=== PATIENT | female | born 1960 | race Caucasian/White ===

== ENCOUNTER 2024-04-11 17:13 | Emergency (ER) | payer MEDICARE, SELFPAY ==
[2024-04-11 17:17] VITALS: BP 163/96; PULSE 104; TEMP 36.4; O2SAT 98; BMI 21.9
--- NOTE | 2024-04-11 17:22 | CT_ITS ---
The [address] [address] Patient Name: LAURA ADAMSON MRN: [id number] date: 1960 Sex: F Assigned Patient Location: ER Current Patient Location: ER Accession/Order Number: [id number] Exam Date: 04/11/2024 17:48 Report Date: 04/11/2024 18:26 At the request of: JULIAN OLMOS Procedure: CT cervical spine wo con EXAM: CT cervical spine wo con CLINICAL INDICATION: Fell, hit head COMPARISON: None. TECHNIQUE: CT scanning of the cervical spine was performed in the axial plane. Coronal and sagittal reconstructed images were performed and viewed. FINDINGS: No acute fracture. The spine is in anatomic alignment. Mild to moderate multilevel degenerative disc and facet disease. The prevertebral soft tissues are unremarkable. Additional soft tissues of the neck and upper thorax are unremarkable. CT/CT cervical spine wo con IMPRESSION: No acute fracture. Electronically authenticated by: ORLY MOSQUEDA Date: 04/11/2024 18:26
--- NOTE | 2024-04-11 17:22 | CT_ITS ---
The [address] [address] Patient Name: LAURA ADAMSON MRN: [id number] date: 1960 Sex: F Assigned Patient Location: ED.MAIN Current Patient Location: Accession/Order Number: [id number] Exam Date: 04/11/2024 17:48 Report Date: 04/11/2024 18:23 At the request of: JULIAN OLMOS Procedure: CT head/brain wo con EXAM: CT head/brain wo con HISTORY: Fell, hit head COMPARISON: CT brain 09/05/2021 TECHNIQUE: Axial CT scans through the head were obtained without IV contrast administration. Dose reduction techniques were achieved by using: automated exposure control and/or adjustment of mA and /or kV according to patient size and/or use of iterative reconstruction technique. FINDINGS: There is no evidence of acute intracranial hemorrhage or abnormal extra-axial fluid collection. No mass effect or midline shift is seen. There is no evidence of large acute territorial infarction. There is no hydrocephalus. There is age appropriate mild global cortical atrophy. Mild decreased attenuation of the supratentorial white matter, likely represents chronic microvascular ischemia. To the limit of CT, the posterior fossa appears unremarkable. There are atherosclerotic calcifications of anterior and posterior circulations. No definite acute fracture is identified. There is mild soft tissue swelling in the left inferior frontal and periorbital region. The visualized orbits show no abnormality. The visualized paranasal sinuses show no air-fluid level. Mastoid air cells are clear. CT/CT head/brain wo con IMPRESSION: No CT evidence of acute intracranial abnormality. No acute fracture. Mild left frontal and periorbital soft tissue swelling. Mild chronic microvascular ischemia and involutional changes. Electronically authenticated by: XENIA UNLU Date: 04/11/2024 18:23
[2024-04-11] MEDS: LIDOCAINE HCL 1% 100 MG/10 ML MDV INJ (17:29)
--- NOTE | 2024-04-11 17:42 | ED_ITS ---
HPI HPI - General Adult General Chief complaint: Fall Stated complaint: fall Time Seen by Provider: 04/11/24 17:18 Source: patient Mode of arrival: walk-in History of Present Illness HPI narrative: 63-year-old female presents to the emergency department for an injury to her face, she fell. She fell when her walker hit a walnut and it rolled and she fell hitting the left side of her face and her left knee. No LOC or vomiting and she does not complain of neck pain. This happened just before coming into the emergency department. No other injury was sustained. No chest pain or abdominal pain or arm pain. Related Data Allergies Allergy/AdvReac Type Severity Reaction Status Date / Time No Known Drug Allergies Allergy Verified 04/11/24 17:16 Opioid HPI Opioid Management Most Recent Opioid Data: No Data to Display Review of Systems ROS Narrative A ten point review of systems is negative except as noted above. PFSH PFSH Social History Little interest or pleasure in doing things: not at all Feeling down, depressed, or hopeless: not at all Exam Narrative Exam Narrative: Nurses note and vital signs reviewed and patient is not hypoxic. General: The patient appears well and in no apparent distress. Patient is resting comfortably on cart. Skin: Warm, dry, no pallor noted. There is no rash noted. Head: Normocephalic, there is an irregular 1-1/2 cm laceration above the left eye with a small hematoma and no active bleeding. She has abrasion to the left Maller area as well. Eye: Normal conjunctiva, no drainage Ears, Nose, Mouth, and Throat: oral mucosa is moist. Nares patent. Cardiovascular: Regular Rate and Rhythm Respiratory: Patient is in no distress, no accessory muscle use, lungs are clear to auscultation, no wheezing, rales or rhonchi Back: non-tender including C-spine GI: Soft and nontender Musculoskeletal: Superficial abrasions present on the anterior left knee. Both hips are nontender and both knees have full range of motion Neurological: A&O, normal speech Psychiatric: Cooperative Constitutional Vital Signs, click to edit/add: Last Vital Signs Temp 97.6 F 04/11/24 17:17 Pulse 104 H 04/11/24 17:17 Resp 20 04/11/24 17:17 BP 163/96 H 04/11/24 17:17 Pulse Ox 98 04/11/24 17:17 O2 Del Method Room Air 04/11/24 17:17 Course Vital Signs Vital signs: Vital Signs Temperature 97.6 F 04/11/24 17:17 Pulse Rate 104 H 04/11/24 17:17 Respiratory Rate 20 04/11/24 17:17 Blood Pressure 163/96 H 04/11/24 17:17 Pulse Oximetry 98 04/11/24 17:17 Oxygen Delivery Method Room Air 04/11/24 17:17 Temperature 97.6 F 04/11/24 17:17 Pulse Rate 104 H 04/11/24 17:17 Respiratory Rate 20 04/11/24 17:17 Blood Pressure 163/96 H 04/11/24 17:17 Pulse Oximetry 98 04/11/24 17:17 Oxygen Delivery Method Room Air 04/11/24 17:17 Medical Decision Making MDM Narrative Medical decision making narrative: CT brain and CT C-spine are negative. After the sutures were placed Gelfoam dressing was applied. Sutures are to be removed in a week. Treatment diagnosis and follow-up were discussed thoroughly. Differential Diagnosis Differential Diagnosis: Fall, laceration, subdural hematoma, epidural hematoma, subarachnoid hemorr Imaging Data CT scan - head: Radiologist's impression: ITS Impressions Cervical Spine CT 04/11/24 17:22 IMPRESSION: No acute fracture. Electronically authenticated by: ORLY MOSQUEDA Date: 04/11/2024 18:[address] 04/11/24 17:22 IMPRESSION: No CT evidence of acute intracranial abnormality. No acute fracture. Mild left frontal and periorbital soft tissue swelling. Mild chronic microvascular ischemia and involutional changes. Electronically authenticated by: XENIA NOEL Date: 04/11/2024 18:23 Discharge Plan Discharge Chief Complaint: Fall Clinical Impression: Facial laceration, Fall Patient Disposition: Home, Self-Care Time of Disposition Decision: 18:41 Condition: Good Mode of Transportation: Private Vehicle Print Language: Lithuanian Instructions: Laceration (ED), Fall Prevention for Older Adults (ED) Additional Instructions: 3 sutures to be removed in a week. Leave current dressing on for 48 hours. Referrals: Casandra Jauregui MD [Primary Care Provider] - 1 week Procedures ED Procedure Instructions Procedures Procedures: The following procedure was performed by mn. Local infiltration was carried out with 1% lidocaine without epinephrine resulting in complete skin anesthesia. The area was prepped with Betadine x 3 and draped sterilely. It was explored for foreign bodies and none were found and then closed with four 6-0 Ethilon sutures resulting in good skin reapproximation and no complications. Hemostasis achieved. She tolerated the procedure well.
--- NOTE | 2024-04-11 18:41 | PC.NURSE ---
gel foam dressing placed on laceration due to bleeding
== END 2024-04-11 19:05 | disposition home or self-care (01) ==
PROVIDERS: Emergency Provider Emergency Medicine; PCP Family Medicine
DX: S01.81XA Laceration without foreign body of other part of head, initial encounter (principal); S80.212A Abrasion, left knee, initial encounter; W18.39XA Other fall on same level, initial encounter
CPT/HCPCS: 12011; 70450; 72125; 99284

== ENCOUNTER 2024-06-05 10:45 | Outpatient (OUT) | payer MEDICARE, SELFPAY ==
--- NOTE | 2024-06-05 10:58 | XR_ITS ---
The [address] [address] Patient Name: LAURA ADAMSON MRN: [id number] date: 1960 Sex: F Assigned Patient Location: [facility] Current Patient Location: [facility] Accession/Order Number: [id number] Exam Date: 06/05/2024 11:07 Report Date: 06/05/2024 12:51 At the request of: XIMENA ASTUDILLO Procedure: XR chest 2V EXAMINATION: XR chest 2V HISTORY: Chronic Obsrtructive Pulmonary Disease COMPARISON: 08/19/2022 TECHNIQUE: PA and lateral FINDINGS: LUNGS: No significant pulmonary parenchymal abnormalities. VASCULATURE: No increased pulmonary vasculature. PLEURA: No pneumothorax, effusion, or pleural thickening. CARDIAC: No cardiomegaly or cardiac silhouette abnormality. MEDIASTINUM: No visible mass or adenopathy. BONES: No fracture or visible bone lesion. Moderate degenerative changes. Anterior wedge compression fracture of multiple levels OTHER: Negative. XR/XR chest 2V IMPRESSION: No acute cardiopulmonary process Electronically authenticated by: PAWAN GEORGE Date: 06/05/2024 12:51
== END 2024-06-05 10:46 | disposition home or self-care (01) ==
LOC: RAD 10:47
PROVIDERS: PCP Family Medicine; Visit Provider Family Medicine
DX: J44.9 Chronic obstructive pulmonary disease, unspecified (principal)
CPT/HCPCS: 71046

== ENCOUNTER 2024-06-24 21:40 | Observation (INO) | payer MEDICARE, SELFPAY ==
[2024-06-24] VITALS (13 sets, daily range): BP systolic 106–137; BP diastolic 58–69; PULSE 75–82; TEMP 36.9; O2SAT 72–100; BMI 23.5
--- OUTSIDE RECORDS SUMMARY | 2024-06-24 21:46 | XMS_ITS | CCD ---
Author Organization [facility] Care Team Providers Care Sharepoint Application Architect Name Role Phone WANDA WHEELER Unavailable Unavailable WANDA WHEELER Yoanna Unavailable Unavailable JULIOCESARADDY CAPPS Unavailable Unavailable JULIOCESAR, ADDY Unavailable Unavailable CA Unavailable Unavailable UNKNOWN, PROVIDER Unavailable Unavailable Ximena Astudillo Primary Care Unavailable Judy Baltazar Admitting Unavailable Judy Baltazar Attending Unavailable Judy Baltazar Primary Care Provider Ximena Astudillo MD Unavailable XIMENA ASTUDILLO Primary Care Physician DR XIMENA ASTUDILLO Primary Care Unavailable PAMELA, DR JACQUELYN Gannon Admitting Unavailabl e PAMELA, DR JACQUELYN Gannon Attending Unavailabl e PAMELA, DR JACQUELYN Gannon Consulting Unavailabl e ARLIN ., KESHAWN PITTMAN Consulting UnavailPAWAN James Consulting Unavailable BAUDILIO, DR XIMENA Gunderson Primary Care Unavailable DIAB ., PARAMJIT Admitting Unavailable DIAB ., PARAMJIT Attending Unavailable ZIEBER, DR BEBETO Cadena Consulting Unavailable DIAB ., PARAMJIT Consulting Unavailable BAUDILIO, DR XIMENA Gunderson Primary Care Unavailable SARAH, DR MONET Attending Unavailable SALINAS, DR PAWAN Vazquez Consulting Unavailable SARAH, DR MONET Admitting Unavailable SARAH, DR MONET Consulting Unavailable ASTUDILLO, DR XIMENA Gunderson Attending Unavailable ASTUDILLO, DR XIMENA Gunderson Consulting Unavailable BAUDILIO, DR XIMENA Gunderson Primary Care Unavailable ASTUDILLO, DR XIMENA Gunderson Admitting Unavailable ASTUDILLO, DR XIMENA Gunderson Attending Unavailable BAUDILIO, DR XIMENA Gunderson Consulting Unavailable BAUDILIO, DR XIMENA Gunderson Primary Care Unavailable BAUDILIO, DR XIMENA Gunderson Admitting Unavailable SHANITASLOANE Consulting Unavailable BAUDILIO, DR XIMENA Gunderson Admitting Unavailable ASTUDILLO, DR XIMENA Gunderson Attending Unavailable ASTUDILLO, DR XIMENA Gunderson Consulting Unavailable BAUDILIO, DR XIMENA Gunderson Primary Care Unavailable MCCULLOUGH ., DR LENY Gunderson Admitting Unavailable MCCULLOUGH ., DR LENY Gunderson Attending Unavailable MARIXA .DR DAILEY Consulting Unavailable ASTUDILLO, DR XIMENA Gunderson Primary Care Unavailable MCCULLOUGH ., DR LENY Gunderson Consulting Unavailable WEST, DR PAWAN Vazquez Consulting Unavailable ZIEBER, DR BEBETO Cadena Consulting Unavailable NADERER, DR ADMARI Beard Consulting Unavailable PAY ., DR DOWNING Consulting Unavailable SAMSA ., MERLINE Consulting Unavailable AHMED, HOLLI Consulting Unavailable DERROW, GAMAL Consulting Unavailable TATUM, BOB Consulting Unavailable ARMINDA, RITIKA Consulting Unavailable Ximena Astudillo Unavailable Rigo Anderson Attending Unavailable Regi Cordova Admitting Unavailab Rigo Wilson Attending Unavailable BENTLEY Swift Admitting Unacariei BENTLEY Tinoco Attending Unavai Regi Welch Attending Unavailab Regi Beebe Admitting Unavailab Regi Beebe Attending Unavailab Regi Beebe Admitting Unavailab grover Baltazar MD, Judy Primary Care Provider Ximena Astudillo MD Unavailable CHANA LEMONS Referring Unavailable CHANA LEMONS Attending Unavailable CHANA LEMONS Referring Unavailable CHANA LEMONS Referring Unavailable BASSEM CYR Referring Unavailable BASSEM CYR Attending Unavailable BASSEM CYR Attending Unavailable BASSEM CYR Referring Unavailable Allergies Allergy Classification Reported Allergen(s) Allergy Type Date of Onset Reaction(s) Facility (1 source) patient allergy list reviewed by nurse or physicia Propensity to adverse reactions 03-06 8 Comment:Done [facility] Other (1 source) Allergies Reconciled Propensity to adverse reactions Unknown [facility] Other Medications Current Medications Medication Drug Class(es) Dates Sig (Normalized) Sig (Original) 30 ACTUAT fluticasone furoate 0.2 MG/ACTUAT / umeclidinium 0.0625 MG/ACTUAT / vilanterol 0.025 MG/ACTUAT Dry Powder Inhaler [Trelegy] (1 source) Start: 10-16-2022 take 1 puff(s) by inhalation once daily Trelegy Ellipta 200-62.5-25 MCG/ACT 1 puff Inhalation Once a day for 30 days Oct, Active acetaminophen 325 mg oral tablet (1 source) Start: 10-12-2023 take 2 tablets by mouth every six hours acetaminophen 325 mg Tab 650 mg = 2 tab(s), Oral, q6hr, Refills(s) 0 Start Date: 10/12/23 Status: Ordered [id number] 200 actuat albuterol 0.09 mg/actuat metered dose inhaler (20 sources) beta2-Adrenergic Agonist Start: 08-08-2023 End: 06-05-2024 take 2 puff(s) by inhalation every six hours as needed for wheezing Albuterol Sulfate (Ventolin Hfa) 90 mcg/actuation HFA aerosol inhaler Active 0 .ROUTE .COMPLEX June 05, 2024 10:26am INHALE 2 PUFFS EVERY 6 HOURS NEEDED FOR SHORTNESS OF BREATH OR WHEEZING 25 Start: 08-08-2023 End: 08-08-2023 take 1 puff(s) by inhalation every six hours as needed Albuterol Sulfate 90 mcg/actuation HFA aerosol inhaler Discontinued 2 PUFF INHALATION Every 6 hours as needed August 07, 2023 11:00pm August 08, 2023 11:48am Start: 05-23-2018 VENTOLIN HFA 9 0 mcg/actuation inhaler take 2 puff(s) by in halation every six hours as needed for wheezing Ventolin HFA 108 (90 Base) MCG/ACT INHALE 2 PUFFS EVERY 6 HOURS NEEDED FOR SHORTNESS OF BREATH OR WHEEZING for 25 Active apremilast 30 mg oral tablet (9 sources) Start: 10-08-2023 take 30 mg by mouth once daily apremilast 30 mg, Oral, Daily, Refills(s) 0 Start Date: 10/08/23 Status: Ordered Start: 09-10-2023 End: 01-29-2024 take 1 tablet by mouth twice daily Apremilast (Otezla) 30 mg tablet Discontinued 30 MG PO Twice daily September 09, 2023 11:00pm January 29, 2024 11:07am Otezla Active ascorbic acid 500 mg oral tablet (1 source) Vitamin C Start: 10-12-2023 ascorbic acid 500 mg Tab 500 mg = 1 tab(s), Oral, BIDWM, Refills(s) 0 Start Date: 10/12/23 Status: Ordered aspirin 81 mg delayed release oral tablet (20 sources) Platelet Aggregation Inhibitor, Nonsteroidal Anti-inflammatory Drug Start: 03-04-2024 End: 05-02-2024 take 1 tablet by mouth once daily Aspirin 81 mg tablet,delayed release (DR/EC) Active 0 .ROUTE .COMPLEX May 02, 2024 8:34am TAKE ONE TABLET BY MOUTH ONCE DAILY 30 Start: 11-01-2021 End: 03-04-2024 take 1 tablet by mouth once daily Aspirin 81 mg tablet,delayed release (DR/EC) Discontinued 1 TAB PO Daily September 09, 2023 11:00pm March 04, 2024 9:04pm FreeTextSig: TAKE ONE TABLET BY MOUTH ONCE DAILY; Note: Source Status: Start; Refills: 12; Qty: 30 Each; Provider: Baudilio Guajardo ( ) Start: 07-18-2018 aspirin 81 mg chewable tablet take 1 tablet by mauro once daily Aspirin 81 81 MG 1 tablet Orally Once a day for 30 day(s) Active atorvastatin 80 mg oral tablet (16 sources) HMG-CoA Reductase Inhibitor Start: 07-18-2018 atorvastatin (LIPITOR) 80 mg tablet bisacodyl 10 mg rectal suppository (2 sources) Stimulant Laxative Start: 10-12-2023 take 10 mg rectal route once daily as needed for constipation bisacodyl 10 mg Supp 10 mg = 1 supp, Rectal, Daily, PRN Constipation, Refills(s) 0 Start Date: 10/12/23 Status: Ordered Start: 10-12-2023 take 2 tablets by mo [facility] once as needed for constipation bisacodyl 5 mg Oral EC Tab 10 mg = 2 tab(s), Oral, Once, PRN Constipation, Refills(s) 0 Start Date: 10/12/23 Status: Ordered 120 actuat budesonide 0.16 mg/actuat / formoterol fumarate 0.0045 mg/actuat metered dose inhaler (16 sources) Corticosteroid, beta2-Adrenergic Agonist Start: 08-08-2023 End: 05-05-2024 take 2 puff(s) by inhalation twice daily Budesonide-Formoterol (Symbicort) 160-4.5 mcg/actuation HFA aerosol inhaler Active 0 .ROUTE .COMPLEX 10.2 May 05, 2024 8:22am INHALE 2 PUFFS TWICE A DAY FOR 30 DAYS Start: 08-08-2023 End: 08-08-2023 take 1 puff(s) by inhalation twice daily Budesonide-Formoterol (Symbicort) 160-4.5 mcg/actuation HFA aerosol inhaler Discontinued 2 PUFF INHALATION Twice daily August 07, 2023 11:00pm August 08, 2023 11:48am Start: 10-18-2022 take 2 puff(s) by in halation twice daily Symbicort 160-4.5 MCG/ACT 2 puffs Inhalation Twice a day for 30 days Oct, Active 12 hr buPROPion hydrochloride 150 mg extended release oral tablet (11 sources) Aminoketone Start: 07-18-2018 buPROPion SR (ZYBAN SR; WELLBUTRIN SR) 150 mg 12 hr tablet cefdinir 300 mg oral capsule (1 source) Cephalosporin Antibacterial Start: 10-12-2023 End: 10-17-2023 take 1 capsule by mouth every twelve hours cefdinir 300 mg Cap 300 mg = 1 cap(s), Oral, q12hr, X 5 day(s), # 10 cap(s), Refills(s) 0 Start Date: 10/12/23 Stop Date: 10/17/23 Status: Ordered clopidogrel 75 mg oral tablet (20 sources) P2Y12 Platelet Inhibitor Start: 09-06-2023 End: 05-05-2024 take 1 tablet by mouth once daily Clopidogrel 75 mg tablet Active 0 .ROUTE .COMPLEX May 05, 2024 8:22am TAKE ONE TABLET BY MOUTH ONCE DAILY Start: 07-18-2018 End: 09-06-2023 take 1 tablet by mouth once daily Clopidogrel 75 mg tablet Discontinued 75 MG PO Daily September 04, 2023 11:00pm September 06, 2023 11:53am Enoxaparin (1 source) Low Molecular Weight Heparin Start: 10-12-2023 End: 11-11-2023 inject 30 mg by subcutaneous injection twice daily enoxaparin 30 mg = 0.3 mL, SubCutaneous, BID, X 30 day(s), Refills(s) 0 Start Date: 10/12/23 Stop Date: 11/11/23 Status: Ordered ferrous sulfate 325 mg oral tablet (1 source) Start: 10-12-2023 ferrous sulfate 325 mg Tab 325 mg = 1 tab(s), Oral, BIDWM, Refills(s) 0 Start Date: 10/12/23 Status: Ordered folic acid 1 mg oral tablet (1 source) Start: 10-12-2023 take 1 tablet by mouth once daily folic acid 1 mg Tab 1 mg = 1 tab(s), Oral, Daily, Refills(s) 0 Start Date: 10/12/23 Status: Ordered folic acid/multivit-min/lutei n (CENTRUM SILVER ORAL) (11 sources) folic acid/multivit-min /lutein (CENTRUM SILVER ORAL) Take by mouth. 0 Active Comment on above: Take by mouth. furosemide 20 mg oral tablet (5 sources) Loop Diuretic Start: 05-31-2022 take 1 tablet by mouth every twenty-four hours Furosemide 20 MG 1 tablet Orally Once a day for 30 day(s) May, Active hydroCHLOROthiazide 12.5 mg / lisinopril 20 mg oral tablet (18 sources) Thiazide Diuretic, Angiotensin Converting Enzyme Inhibitor Start: 11-01-2021 take 1 tablet by mouth once daily hydrochlorothiazi de-lisinopril 12.5 mg-20 mg Tab tab(s), Oral, Daily, Refill(s) 0 Start Date: 11/01/21 Status: Ordered Start: 07-18-2018 lisinopril-hyd rochlorothiazide (PRINZIDE,ZESTORETIC) 20-12.5 mg per tablet methocarbamol 500 mg oral tablet (1 source) Muscle Relaxant Start: 10-12-2023 take 1 tablet by mouth four times daily Robaxin 500 mg Tab 500 mg = 1 tab(s), Oral, QID, Refills(s) 0 Start Date: 10/12/23 Status: Ordered Metoprolol (20 sources) beta-Adrenergic Mary Start: 05-02-2024 take 1 tablet by mouth once daily Metoprolol Succinate 25 mg tablet extended release 24 hr Active 0 .ROUTE .COMPLEX May 02, 2024 8:34am TAKE ONE TABLET BY MOUTH ONCE DAILY Start: 04-01-2024 End: 05-02-2024 take 1 tablet by mouth once daily Metoprolol Succinate 25 mg tablet extended release 24 hr Discontinued 0 .ROUTE .COMPLEX April 01, 2024 3:02pm May 02, 2024 8:34am TAKE ONE TABLET BY MOUTH ONCE DAILY Start: 12-08-2023 End: 04-01-2024 take 1 tablet by mouth once daily Metoprolol Succinate 25 mg tablet extended release 24 hr Discontinued 0 .ROUTE .COMPLEX December 08, 2023 6:38am April 01, 2024 3:02pm TAKE ONE TABLET BY MOUTH ONCE DAILY Start: 12-08-2023 take 1 tablet by mauro once daily Metoprolol Succinate Active 0 .ROUTE .COMPLEX December 08, 2023 7:38am TAKE ONE TABLET BY MOUTH ONCE DAILY Start: 10-12-2023 End: 10-12-2023 metoprolol 25 mg ER Tab 25 m g = 1 tab(s), Tab-ER, Oral, Start date 10/12/23 9:00:00 AM EDT, 10/08/23 14:56:00 EDT Start Date: 10/12/23 Stop Date: 10/12/23 Status: Completed Start: 10-11-2023 End: 10-11-2023 metoprolol 25 mg ER Tab 25 m g = 1 tab(s), Tab-ER, Oral, Start date 10/11/23 9:00:00 AM EDT, 10/08/23 14:56:00 EDT Start Date: 10/11/23 Stop Date: 10/11/23 Status: Completed Start: 10-10-2023 End: 10-10-2023 metoprolol 25 mg ER Tab 25 m g = 1 tab(s), Tab-ER, Oral, Start date 10/10/23 9:00:00 AM EDT, 10/08/23 14:56:00 EDT Start Date: 10/10/23 Stop Date: 10/10/23 Status: Completed Start: 09-06-2023 End: 12-08-2023 take 1 tablet by mouth once daily Metoprolol Succinate 25 mg tablet extended release 24 hr Discontinued 0 .ROUTE .COMPLEX September 06, 2023 11:53am December 08, 2023 6:38am TAKE ONE TABLET BY MOUTH ONCE DAILY Start: 09-06-2023 End: 12-08-2023 take 1 tablet by mouth once daily Metoprolol Succinate Discontinued 0 .ROUTE .COMPLEX September 06, 2023 12:53pm December 08, 2023 7:38am TAKE ONE TABLET BY MOUTH ONCE DAILY Start: 09-06-2023 take 1 tablet by mauro th once daily Metoprolol Succinate Active 0 .ROUTE .COMPLEX September 06, 2023 12:53pm TAKE ONE TABLET BY MOUTH ONCE DAILY Start: 11-01-2021 End: 09-06-2023 take 1 tablet by mouth once daily Metoprolol Succinate 25 mg tablet extended release 24 hr Discontinued 25 MG PO Daily September 04, 2023 11:00pm September 06, 2023 11:53am Start: 07-18-2018 metoprolol suc cinate ER (TOPROL XL) 50 mg 24 hr tablet montelukast 10 mg oral tablet (16 sources) Leukotriene Receptor Antagonist Start: 07-18-2018 montelukast (SINGULAIR) 10 mg tablet Nicotine 14 mg/24 hr patch 24 hour (1 source) Start: 06-05-2024 apply 1 dose transdermal route every twenty-four hours Nicotine 14 mg/24 hr patch 24 hour Active 1 PATCH TRANSDERML Daily June 05, 2024 10:26am NIFEdipine 30 mg osmotic 24 hr extended release oral tablet (20 sources) Dihydropyridine Calcium Channel Mary Start: 01-29-2024 End: 05-05-2024 take 1 tablet by mouth once daily Nifedipine 30 mg tablet extended release 24hr Active 0 .ROUTE .COMPLEX May 05, 2024 8:22am TAKE ONE TABLET BY MOUTH ONCE DAILY Start: 11-01-2021 take 1 mg by mouth once daily NIFEdipine 30 mg ER Tab mg tab(s), Oral, Daily, Refills(s) 0 Start Date: 11/01/21 Status: Ordered Start: 12-08-2019 End: 01-29-2024 take 1 tablet by mouth once daily Nifedipine 30 mg tablet extended release 24hr Discontinued 30 MG PO Daily September 09, 2023 11:00pm January 29, 2024 11:30am FreeTextSig: TAKE 1 TABLET BY MOUTH DAILY; Note: Source Status: Start; Refills: 11; Qty: 30 Each; Provider: Baudilio Guajardo ( ) take 1 tablet by mauro th every twenty-four hours NIFEdipine ER 30 MG 1 tablet on an empty stomach Orally Once a day Active Comment on above: TAKE ONE TABLET ONCE DAILY Nitro Sublingual 0.4 0.4mg (5 sources) Nitro Sublingual 0.4 0.4mg 1 Sublingual Every 5min x3 Active Nitroglycerin (14 sources) Nitrate Vasodilator Start: 11-03-2021 nitroglycerin Refills(s) 0 Start Date: 11/03/21 Status: Ordered NITROGLYCERIN OR AL Take by mouth. 0 Active Comment on above: Take by mouth. oxyCODONE hydrochloride 5 mg oral tablet (1 source) Opioid Agonist Start: 10-12-2023 End: 10-17-2023 take 1 tablet by mouth every six hours as needed for pain oxyCODONE 5 mg Tab 5 mg = 1 tab(s), Oral, q6hr, PRN for pain, X 5 day(s), # 20 tab(s), Refills(s) 0 Start Date: 10/12/23 Stop Date: 10/17/23 Status: Ordered potassium chloride 10 meq extended release oral tablet (20 sources) Start: 10-04-2023 End: 12-08-2023 take 1 tablet by mouth once daily Potassium Chloride Discontinued 0 .ROUTE .COMPLEX October 04, 2023 3:17pm December 08, 2023 7:38am TAKE ONE TABLET BY MOUTH ONCE DAILY Start: 08-08-2023 End: 05-05-2024 take 1 tablet by mouth once daily Potassium Chloride 10 mEq tablet extended release Active 0 .ROUTE .COMPLEX May 05, 2024 8:22am TAKE ONE TABLET BY MOUTH ONCE DAILY Start: 08-08-2023 End: 08-08-2023 take 1 tablet by mouth once daily Potassium Chloride 10 mEq tablet extended release Discontinued 10 MEQ PO Daily August 07, 2023 11:00pm August 08, 2023 11:48am Start: 11-01-2021 Potassium Chlo ride (Uic-Qnsp-Xlo 10) mEq, Oral, BID, Refills(s) 0 Start Date: 11/01/21 Status: Ordered take 1 tablet by mauro once daily Potassium Chloride ER 10 MEQ TAKE ONE TABLET BY MOUTH ONCE DAILY for 30 Active predniSONE 20 mg oral tablet (1 source) Start: 06-05-2024 take 1 tablet by mouth twice daily Prednisone 20 mg tablet Active 20 MG PO Twice daily June 05, 2024 12:00am sennosides, mcc 8.6 mg oral tablet (1 source) Start: 10-12-2023 take 1 tablet by mouth once daily at bedtime senna 8.6 mg Tab 8.6 mg = 1 tab(s), Oral, Once a day (at bedtime), Refills(s) 0 Start Date: 10/12/23 Status: Ordered sodium chloride 1000 mg oral tablet (8 sources) Start: 10-12-2023 take 1 tablet by mouth once daily sodium chloride 1 g Tab 1 gm = 1 tab(s), Oral, Daily, Refills(s) 0 Start Date: 10/12/23 Status: Ordered Start: 11-01-2021 Sodium Chlorid e Refills(s) 0 Start Date: 11/01/21 Status: Ordered Sodium Chloride 1 GM as directed Orally Daily Active Symbicort 80/4.5 inhalation aerosol with adapter (1 source) Start: 10-08-2023 take 2 puff(s) by inhalation twice daily Symbicort 80/4.5 inhalation aerosol with adapter 2 puff(s), Inhalation, BID, Refill(s) 0 Start Date: 10/08/23 Status: Ordered thiamine 100 mg oral tablet (1 source) Start: 10-12-2023 take 1 tablet by mouth once daily thiamine 100 mg Tab 100 mg = 1 tab(s), Oral, Daily, Refills(s) 0 Start Date: 10/12/23 Status: Ordered traMADol hydrochloride 50 mg oral tablet (2 sources) Opioid Agonist Start: 11-01-2021 take 1 mg by mouth every six hours traMADOL 50 mg Tab mg tab(s), Oral, q6hr, Refills(s) 0 Start Date: 11/01/21 Status: Ordered Ventolin HFA 90 mcg/inh Aerosol (3 sources) Start: 11-01-2021 take 1 puff(s) by inhalation every six hours Ventolin HFA 90 mcg/inh Aerosol puff(s), Inhalation, q6hr, Refill(s) 0 Start Date: 11/01/21 Status: Ordered Completed/Discontinued Medications Medication Drug Class(es) Dates Sig (Normalized) Sig (Original) fluocinolone acetonide 0.80017 mg/mg topical ointment (8 sources) Corticosteroid Start: 09-10-2023 End: 04-07-2024 Fluocinolone 0.025 % ointment Discontinued 1 APPLIC TOPICAL Twice daily September 09, 2023 11:00pm April 07, 2024 10:46am FreeTextSi application Externally Twice a day; Note: Source Status: Taking; Provider: Baudilio Guajardo ( ) Fluocinolone [place] tonide 0.025 % 1 application Externally Twice a day Active methylPREDNISolone 4 mg oral tablet (3 sources) Corticosteroid Start: 09-10-2023 End: 01-29-2024 Methylprednisolone 4 mg tablets,dose pack Discontinued 0 PO per package directions September 09, 2023 11:00pm January 29, 2024 11:07am PO PER PKG DIR for 6 days Start: 09-10-2023 End: 01-29-2024 Methylprednisolone Discontin ued 0 PO per package directions September 10, 2023 12:00am January 29, 2024 12:07pm PO PER PKG DIR for 6 days Start: 09-10-2023 Methylpredniso lone Active 0 PO per package directions September 10, 2023 12:00am PO PER PKG DIR for 6 days 24 hr nicotine 0.875 mg/hr transdermal system (7 sources) Cholinergic Nicotinic Agonist Start: 02-05-2024 End: 06-05-2024 apply 1 dose transdermal route every twenty-four hours Nicotine 21 mg/24 hr patch 24 hour Discontinued 1 PATCH TRANSDERML Daily April 07, 2024 10:54am June 05, 2024 10:27am Start: 10-16-2022 apply 1 dose transde rmal route once daily Nicoderm CQ 7 MG/24HR 1 patch to skin Transdermal Once a day for 30 days Oct, Active Problems Active Problems Problem Classification Problem Date Documented Da te Episodic/Chronic Acute myocardial infarction (1 source) Non-ST elevation (NSTEMI) myocardial infarction; Translations: [NON-ST ELEVATION (NSTEMI) MYOCARDIAL INFARCTION] Onset: 02-12-2017 Chronic Alcohol-related disorders (2 sources) Alcohol abuse, uncomplicated; Translations: [Alcohol abuse] Onset: 09-26-2021 Chronic Chronic obstructive pulmonary disease and bronchiectasis (20 sources) Chronic obstructive lung disease; Translations: [Chronic obstructive pulmonary disease with (acute) exacerbation] Onset: 09-26-2021 11-01-2021 Chronic Coronary atherosclerosis and other heart disease (9 sources) Unstable angina; Translations: [Atherosclerotic heart disease of [place] coronary artery without angina pectoris] Onset: 02-12-2017 11-01-2021 Chronic Deficiency and other anemia (1 source) Iron deficiency anemia secondary to blood loss (chronic); Translations: [IRON DEFIC ANEMIA SEC BLD LOSS CHRN] Onset: 09-26-2021 Chronic Deficiency and other anemia (3 sources) Anemia 11-01-2021 Episodic Deficiency and other anemia (1 source) Iron deficiency anemia; Translations: [Iron deficiency anemia, unspecified] Episodic Diseases of white blood cells (1 source) Leukocytosis; Translations: [Elevated white blood cell count, unspecified] Chronic Disorders of lipid metabolism (14 sources) Hyperlipidemia; Translations: [Hyperlipidemia, unspecified] Onset: 10-18-2021 11-01-2021 Chronic Essential hypertension (16 sources) Essential hypertension; Translations: [Essential (primary) hypertension] Onset: 03-04-2018 11-01-2021 Chronic Fluid and electrolyte disorders (11 sources) Hyponatremia; Translations: [Hypo-osmolality and hyponatremia] Onset: 09-23-2021 11-01-2021 Episodic Fracture of neck of femur (hip) (3 sources) Closed fracture of neck of right femur; Translations: [Fracture of unspecified part of neck of right femur, initial encounter for closed fracture] Onset: 10-08-2023 Episodic Fracture of upper limb (1 source) Closed Colles' fracture; Translations: [Colles' fracture of unspecified radius, initial encounter for closed fracture] Onset: 10-08-2023 Episodic Heart valve disorders (4 sources) Aortic valve stenosis; Translations: [Aortic valve disorder] Onset: 03-04-2018 11-01-2021 Chronic Malaise and fatigue (1 source) Fatigue; Translations: [Other fatigue] Episodic Osteoarthritis (7 sources) Osteoarthritis of knee; Translations: [Osteoarthritis] Onset: 03-04-2018 01-20-2010 Chronic Other aftercare (2 sources) termite technician (current) use of aspirin; Translations: [BLACK ASH WORKER (CURRENT) USE OF ASPIRIN] Onset: 02-12-2017 Episodic Other aftercare (1 source) Other termination clerk (current) drug therapy; Translations: [OTH CARE HOME CURRENT DRUG THERAPY] Onset: 08-22-2022 Episodic Other aftercare (1 source) Surgical follow-up; Translations: [Encounter for removal of sutures] 04-21-2024 Episodic Other aftercare (1 source) Encounter for removal of sutures; Translations: [Encounter for removal of sutures] 04-21-2024 Episodic Other circulatory disease (1 source) Elevated blood-pressure reading without diagnosis of hypertension; Translations: [Elevated blood-pressure reading, without diagnosis of hypertension] Episodic Other connective tissue disease (1 source) Rhabdomyolysis; Translations: [Rhabdomyolysis] Onset: 10-08-2023 Episodic Other fractures (1 source) Closed fracture of multiple ribs; Translations: [Multiple fractures of ribs, unspecified side, initial encounter for closed fracture] Episodic Other inflammatory condition of skin (1 source) Psoriasis, unspecified; Translations: [PSORIASIS UNSPECIFIED] Onset: 05-12-2022 Chronic Other inflammatory condition of skin (1 source) Psoriasis vulgaris; Translations: [Psoriasis vulgaris] Chronic Other injuries and conditions due to external causes (2 sources) History of falling; Translations: [History of fall] Onset: 09-26-2021 04-21-2024 Episodic Other injuries and conditions due to external causes (1 source) History of fall; Translations: [History of falling] 04-21-2024 Episodic Other liver diseases (2 sources) Ischemic hepatitis 11-30-2021 Chronic Other liver diseases (1 source) Fatty (change of) liver, not elsewhere classified; Translations: [FATTY CHANGE LIVER NEC] Onset: 09-26-2021 Chronic Other liver diseases (1 source) Hepatic failure; Translations: [Acute and subacute hepatic failure without coma] Onset: 11-30-2021 Episodic Other lower respiratory disease (4 sources) Shortness of breath; Translations: [SHORTNESS OF BREATH] Onset: 01-23-2022 Episodic Other nutritional; endocrine; and metabolic disorders (1 source) Hypocalcemia; Translations: [HYPOCALCEMIA] Onset: 09-26-2021 Chronic Other nutritional; endocrine; and metabolic disorders (1 source) Body mass index 25-29 - overweight; Translations: [Body mass index (BMI) 25.0-25.9, adult] Episodic Other screening for suspected conditions (not mental disorders or infectious disease) (3 sources) Screening for malignant neoplasm of colon done; Translations: [Encounter for screening for malignant neoplasm of colon] Onset: 09-26-2021 Episodic Pancreatic disorders (not diabetes) (1 source) Acute pancreatitis; Translations: [Acute pancreatitis without necrosis or infection, unspecified] Onset: 10-08-2023 Episodic Pleurisy; pneumothorax; pulmonary collapse (5 sources) Pleural effusion; Translations: [Pleural effusion, not elsewhere classified] Onset: 09-26-2021 11-01-2021 Episodic Residual codes; unclassified (1 source) Body mass index 20-24 - normal; Translations: [Body mass index (BMI) 23.0-23.9, adult] Episodic Residual codes; unclassified (1 source) Normal body mass index; Translations: [Body mass index (BMI) 24.0-24.9, adult] Episodic Spondylosis; intervertebral disc disorders; other back problems (2 sources) Acute low back pain; Translations: [Acute low back pain] 09-10-2023 Episodic Substance-related disorders (12 sources) Nicotine dependence, unspecified, uncomplicated; Translations: [Nicotine dependence, cigarettes, uncomplicated] Onset: 02-12-2017 Chronic Comment on above: Added secondary to d ocumentation in Social History. Unclassified (2 sources) Unknown / UNK(Unknown) Onset: 02-12-2017 Unclassified (1 source) Hypertensive urgency; Translations: [HYPERTENSIVE URGENCY] Onset: 02-12-2017 Unclassified (3 sources) Liver function test increased 11-03-2021 Unclassified (3 sources) Patient encounter status 11-03-2021 Unclassified (3 sources) Protein level - finding 11-01-2021 Unclassified (1 source) CONTACT W/AND (SUSP) EXPOS COVID-19; Translations: [CONTACT W/AND (SUSP) EXPOS COVID-19] Onset: 01-23-2022 Past or Other Problems Problem Classification Problem Date Documented Da te Episodic/Chronic Acute bronchitis (1 source) Acute bronchitis due to other specified organisms; Translations: [ACUTE BRONCHITIS D/T SPEC ORGANISMS] Onset: 2 Episodic Crushing injury or internal injury (4 sources) Traumatic pneumothorax, initial encounter; Translations: [Contusion of lung, unilateral, initial encounter] Onset: 2 Episodic Deficiency and other anemia (5 sources) Iron deficiency anemia, unspecified; Translations: [IRON DEFICIENCY ANEMIA UNSPECIFIED] Onset: 2 Episodic E Codes: Fall (1 source) Unspecified fall, initial encounter; Translations: [UNSPECIFIED FALL INITIAL ENCOUNTER] Onset: 2 Episodic Gastrointestinal hemorrhage (1 source) Gastrointestinal hemorrhage, unspecified; Translations: [GASTROINTESTINAL HEMORRHAGE UNS] Onset: 2 Episodic Nausea and vomiting (1 source) Vomiting; Translations: [Vomiting alone] Onset: 9 Episodic Other aftercare (1 source) 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; Translations: [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/ANTIPLATL ETS] Onset: 2 Episodic Other circulatory disease (1 source) Orthostatic hypotension; Translations: [Orthostatic hypotension] Onset: 8 Episodic Other fractures (1 source) Wedge compression fracture of first lumbar vertebra, initial encounter for closed fracture; Translations: [WEDGE COMPRS FX 1ST LV INIT ABIMAEL FX] Onset: 2 Episodic Other fractures (1 source) Multiple fractures of ribs, right side, initial encounter for closed fracture; Translations: [MX FX RIBS RT SIDE INITIAL CLOS FX] Onset: 2 Episodic Other lower respiratory disease (1 source) Hypoxemia; Translations: [HYPOXEMIA] Onset: 2 Episodic Other lower respiratory disease (1 source) Dyspnea; Translations: [Other dyspnea and respiratory abnormalities] Onset: 8 Episodic Other skin disorders (1 source) Changes in skin texture; Translations: [CHANGES IN SKIN TEXTURE] Onset: 2 Episodic Residual codes; unclassified (4 sources) Localized edema; Translations: [LOCALIZED EDEMA] Onset: 2 Episodic Skin and subcutaneous tissue infections (1 source) Cellulitis of right lower limb; Translations: [CELLULITIS OF RIGHT LOWER LIMB] Onset: 2 Episodic Results Test Name Value Interpretation Reference Range Facility Coding Summary.on 10-31-2023 Coding Summary. [id number]+PG hlYWQ+PE1F ASNjK91aoFBruP7lS8QXADyAQnxwZH PUWSvUJcPnweCpGE5teZIzJNQh IC8+RD2yIGJcNzzyvSVhz3B0iVX0A4 3agp5aCLchmJY1WYKoTvAbjakna1po dDa7IRajIgvkBxYx ZPBwdU76WFR9eC69Bm32rPIzkFCoa7 apmYi3KsGuYKXlTBR8nCidVGvbx3Fz JCSfX21rhCVya2A8 ZFFtvQfndSXuLfJknRQ6oY9oMIjnrw alr6elkrhgOsj8ry68xIHfe9Z2bKP4 X7PvhbZ6CCMhfLTo HrwtjHTUqG4ufwbkf0nxwwckEcBpZM XnLVe9ZSd0SUFveVemLhVlRP82ZYE3 UIHjtuToR6AdGRWw hVirJrS7x3M4Fz9VB2IFPyogY7ICCU FSWTwvdGQ+IQ24yq64O8ToJyjvNjl8 HDFoHQF6yCA0xT5o DFTyRMmyd0B8wVF0Z1TuacUwib5hf3 ukFEZgZDkvM40rzFWoh2D7XSGdhJJ3 QMKxlFkcHvYzaM46 Oyc+TMDdmLnvi4XuGraih5dnp2nqaS f2MbcjPHSjyqNfjOuwMKV2f8HvRh7o YOAjbHA6wNL6uN8s BvLrYqX1FGgsS302HaBmnGPzJhwsL2 0yW6KwiET+NCCqXwy5LZXzpRyyKW4f B5JkUVPenmnfqJZw dQqfPT3mETQiybyoJRQteT8pNISuR0 n8AbRnEoF4EZkvK2IgHPAklqeeUz96 vP9mJnEbIxQ9BLkj J3HyvlJ4CFUaxYPmKOefZXS5N89vt2 I5QYWlMWAhZSF6ySZ9wQ2ikQjlcpnx bGVmdDsgdmVydGlj CBviVEtpY846SXJhoBakXzVeEDimIr BEYXRlOiAgMDYvMTkvMjAyNDwvdGQ+ YUVkFWA6xTxhNHBt cUUnZZgaYj2bvCgowDymWB1rRXAujy liKAUglJ7dIEMtiUAaaYrwSW9qJDMu urxnu895BlRhLHV0 JCVtvAZdO4DxcB0oFeNhLZIaRCAwC5 XueUJtQEotW669CZxqWpX1ZNOhxvQy J5YbKBSaqYohPqD8 l1V7Mm7Jc2WchxvwP2JkwBTsMjCvQk sdJCh9C6HwLlndfCE+LY86RMOzCL01 URt8YMJ5aBhnNNli RZTwF0FrmZ0pJhGjKWZoDKTpEyu+PH RhYmxlIHdpZHRoPScxMDAlJyBzdHls AK7wBp0wGRWfIEAa qCjpyBDkJpXps8jiBHWcBMsyUY3isU wgK2McgBI3BHCuk7c5Jo01D91fC5Nc dXA+WUOaaCI8pRP9 xF6cJnTgDxJ7DPliJ669WlTelBIjAf ixx6cfn3pzhSp6BpM3XJLzolJspIqa PFY8i2FwSc93W28g KJyrOZSaLMZfSSQsTMLgzKhlmj4dtI 9wIi8+WWRtgZZ8pRY8wS3sAfPpTiK4 OZynK512GaLeuUWe Ittck7dqt2hvbMn6AlEiEHBymvLqrY thIOJ5p0ZgQd16J1GehTtjj2EdOah1 dl27aXJka7G7wML2 Z5HxTVHvlbbadGYgeRydCR9jPUUjpn fiKJJjcV8wPONgZ7i5BoQlXnO6VQou V0MaidX5OZIyaRNx JVErzXAMuP5qlfrlh7qajjviScMrZG ShDZi8QUt0MBRspWfaXsDzUUD3YqG3 QFM5bYGcdO3quUxa dhcatL6kKiz+ZEM7wXWsnJEFUD0oCg wvdGQ+XCGeYAR0aTraESalHQDmfE3h BUBjU2f3NcBnBnG3 RUloP6XawgV3CHZvlZCiIQUxaJTFuK 6cdzxeh4ectmhnNcQzQZBeXKw6IHb5 LWFsaWduOiBsZWZ0 ZqR9XSF7nPLrsD2idOaianvsqS4xMb c+CkdycFdqVJA9MBt7K7PyEzn5FGDl wVfuZD9goQYqMWdk Yj9lfVqofCanOM2nDXYzfhaja483Np Cfc3vcFHVqvOAhOUrxYBO1F42du9Y2 MFBsPYCpLTN2yWR5 rX5veAroaoqpnKAndTtvkpKzzXboQG veNBviD877JRGmpLdcBzDbTBk8T5Wu Pso7FUEazHvpQU3p hDTjYPxkCm0qjBtcjJcvEA1zMBGesi lnd876ImNwr2psXDMkrJOuVCquLSC1 L99zk3K6PURgVUAz WAG3eGB4rJ7fbYiwuijrgFWcfPwoxe LevLxhWBsmRAerD275FCJinHluPuEz hIs6E9XyJns3LIEb kOjuPX1abLYpOGtbIm6feLcxxJpxKN 4hAXXkwmxuy831EoUxc5jpTFLpdNFu IJelROG7E83km5B0 QDFzQQApXOC8wPZ7dC1tuUzftjidcX FqzVtrluYpoDjnGUnbSPgvI412WAEa cDsnPlBhdGllbnQg HIcuDGk0X9OvMxgwgOJ+LJ78TLMvAB 88gGQtyUPgy4azjAi0SlMmIRDeKZE9 ePtoFCtdu7SySOHg T99knEGmb7H4GOKsuXbloKMgQbTmfS W5jU6mESfzvigjx6sufmirXlfyl0xg zm70iZ96I51cUIch EWBoGKXpZCRoITKjvCcuzd5erY5aJo 8+PRLtbEM5bYO0qC5gMMPxGlZ7HSqc F198NdFpdGWqHtvf w3ahj6qjhEg1IpK7HXJkbwJurRgvRY M7u0EuZu64Y57aODzgGJXhQSYiDYBz HQFimMabpq7moA3k Ii8+LKBtqOE1xNH5kX6yXpIoGcK9FV czX841NaJnqEWqJdvcT08vY2YwwRD+ KOTcZsv4RDLjmMpc UW1yzREmNWpuYz6uFJO9EaQpSzZnZY wqK9VsYXNheokjiwxebBQ6MYFqAOWx yX31Fm2snYydQBGi aSRGyB7xrljyi0uvztzdIzSaJODlXU g4PQg8GDVtqSnyEqRxJJP2ZcK8FVJ1 wYQwjU3uwHyqvctj iJ2wJ7NaHEDmgbmhSt60gY9kHwVmTe R7ZWoxXia+NRyNNmNYOJCMIEZOAA7E ZVB9Z1TjIly5BIYn rIzwFC0syNYyMDolYs2wcSzyoXynVA 3rNMUibxlbYAHqnZ1wHLYvxTBnsRaf HJ9jSIFhyfuqp120 RoRsHLL2APDunJXuC3QzmB5vVyLmJB SzLFPyY7IvsATdNTiyP307PDynQmQ0 OPRfipXoS0YjFYNe wSgzEaU7q1R1Gr2bSm4wHS5xDLK6MK 83MP79nERzf9L6eEL7I6ClCNGubzwx jcvrjCZ6TARgEDSn zH82tGDmXJihLs7ot6T7e970RAXtTZ LrvO49Nm5slTzqTZZhcPUFtH8upnlc l9winldaZiUpYOHm CPs6JPs7RPGogKpyIvWiXIV9UyE0CO K3kZSdrM8peHjnqbfwuQ6iXkl+NjUg TORdqxW1M8EaVrj2 CCNgsEupMY7wxXTsUFshZi7inXajmJ adFI1nNQPnetqdZAHhwB5dNQYvlWTu iUruZT6gZFCvumap a350YbZuFJX1JPOszQHrO6OffK3cKr QeLSVwTBXrZ9IixFCzFNlkK501ZQus YiB4IQPrzqTbC7Xv XQEzqKadJcL0v0Y5Uz4HFC1rgPC2J6 EnMst6MJThhSxiGW5vcTCmBJwaIm6i jPjucJwrNJ2wNSLe cqyrTCNbkO5vSNZtaMRmnAbjPK4pZM Kzucjxo319YbBnYFN8TZWxhLSdE3Mv pZ6gEbBvFJHcQPVd M1RdqPEtAAnmK255ANcxNzA9TQLufs IvW4GjYMCtaTltApB5y2J7Hl1YfzNh dAcepvM5I7DqCiav dHI+SU69JVOnPN40xZMlrYPaz6jrpP w7VqMfUYPaKBE9bLqhBCboy2DqCKYr E94erCJoo8I0FENi iPokyFMyTqOqdNU3lZ1rOYdenyamq9 hxvhxiIwayo3pnby05pO65E31kJMiz ZHRoPSIzMCUiIHZh uHlnux3piC5vQr0+BXTjpFT9pQU6qI 2cKtTfVaJ8AJlfF314YcCfhPCxHsur m2gfs3hshRc8BoSh ONPzlaCpzRnsSIF0n4WwPw27H59lYK xbCACvWFHpUZIoMPNmdAhjkh2sxY8k Ii8+CV9wl4yras52 wR11fDJ+NXCeDLW1tWjaNPgbBYHonJ 9iJPteMfW8BLBlYkOivQ69wXLqHIgp Vv9qvSaqhTbjIL0o WUVyqpphr187PgNkk9leTINfmJVkED xmPWL6D22nu1S5QIChZCCaXYB8oSF9 cB2snIyyjbyoqMVv aApapqRnqGuuAGsuXLzrM018XOJpbU brMfApwRJqD7gnlmIPFF5kOgjwsNL+ VJJrQRB6fOomLNph ZIPjvE5hHZGkV2k8PkYaCbB7BNliU9 BvefI7NZJujHKxVWNfaFSVnA6prwsr t9lqjcwfPpEqUIXz FJp9GMd5WZMklCubNkJzLGV4WbO6PH V8oQIvsQ5ciCohaikzbJ1vTiv+RklO OjwvdGQ+PHRkIHN0 aFhqYNmeSYNowO4gIUNnC3r5PkLhXw U2HDbjW0KtniZ0OMKjfXVtQXUaiPVN uI2cstzpg2czweic SkLmFZDtEKx8KRf7OMVuuClmJfGwCO A3XjY3YRZ9kVBbeC6bnTgoywjuzC9w Oyc+TVJOOjwvdGQ+ GJWqMQE9bDefBRloZIFxpW1hCBMlH2 c1SuKeCxR7BSmtM7ZbukX9GTQwxFBc PCGdqVSYaA3qeslx n4rzlbppYiUbIWUnFYw3FOj7RXDitP zjFzPrLHE1ItG4WRV3xCBsgY5crUss npptmW7pTac+UGF5 IMT8RC81GL46T3IlTschvDYeiDJ+PH RhYmxlIHdpZHRoPScxMDAlJyBzdHls QF4mBv5bQLEiKNQl bGxhcHNlOiBjb (more content not included)... [facility] Coding Queryon 10-30-2023 Coding Query - From: An Beauchamp RN To: Mckenzie Lerma PA-C; Sent: 10/12/2023 13:24:02 EDT ! Subject: Coding Query Due Date/Time: 10/13/2023 13:24:00 EDT Caller Name: CATHERINE ADAMSON; Caller Number: H Clinical evidence indicates that this patient is currently using alcohol or drugs. dc summary- Pt and family report that patient is a heavy drinker of 6-8 drinks a day. Denies any history of ETOH abuse. Pt last drink was when she fell. 10/08 SW-This SW responded to a consult on [address] [place] [address] regarding ETOH / Substance abuse. Patient stated that her last alcoholic beverage was on afternoon. Patient alcohol of choice is beer and she typically consumes 6-8 daily. Patient has never attempted to quit in the past and stated that she doesn't plan to quit now. Patient stated that she enjoys drinking and isn't hurting anyone besides herself. Patient stated that she is 63 years old and plans on going out with a bang. Social history by nursing-beer daily 6 drinks/episode average. 8.00 drinks episode maximum. Started age 16 hears. Previous treatment- alcoholics anonymous, inpatient, Drinks more than intended-yes Please indicate the substances that are being abused or for which the patient is dependent, and clarify further. Please select at least one item from each category. Substance [___]Alcohol Use: [___]Dependence, continuous Complication: [___]Uncomplicated [___]Unspecified [___]Other: In responding to this request, please exercise your independent professional judgement. The fact that a question is asked does not imply that any particular answer is desired or expected. Thank you! An [phone] From: An Beauchamp RN To: Mckenzie Lerma PA-C; Cc: Fela Norman; Sent: 10/30/2023 06:51:14 EDT ! Subject: FW: Coding Query Due Date/Time: 10/31/2023 06:51:00 EDT Caller Name: CATHERINE ADAMSON; Caller Number: H This shows deleted with no response, was that your intention? From: Mckenzie Lerma PA-C To: Quynh DICKINSON, An; Sent: 10/30/2023 08:59:44 EDT Subject: RE: Coding Query Caller Name: CATHERINE ADAMSON; Caller Number: H Alcohol Dependence, continuous Unspecified [facility] Discharge Instructionson Discharge Instructions [id number]#1.00TIFF [facility] Medication Listson Medication Lists [id number]#1.00TIFF [facility] Physician Orderon 10-17-2023 Physician Order [id number]#1.00TIFF [facility] Transfer Documentson 024 Transfer Documents [id number]#1.00TIFF [facility] Transfer Documents [id number]#1.00TIFF [facility] Transfer Documents [id number]#1.00TIFF [facility] Progress Note-Physicianon Progress Note-Physician GENERAL INFORMATION TRAUMA - STAFF PROGRESS NOTE Patient Name: CATHERINE ADAMSON Admission Date: 10/08/2023 11:57:18 Patient seen and examined on 10/09/2023 17:23:32 INTERVAL HISTORY/EVENTS Background: CATHERINE ADAMSON is a 63 Years-old Female with a PMHx of CAD, chronic hyponatremia, alcohol abuse, HTN, COPD, tobacco abuse presents s/p fall from standing (-)HS, (-)LOC, (+)Plavix. Prolonged down time. Trauma workup found: 1. Right distal radius and ulna fracture 2. Right intertrochanteric fracture 3. Elevated lipase with pancreas inflammation 4. Dehydration 5. UTI patient admitted to [facility] with orthopedics consult. Hospital Course: 10/08/2023: Presented to the ED s/p fall 4 days prior. found above injuries. Admitted to [facility] with orthopedics consult. 24 Hour Events: No acute events overnight per patient or nursing. Pt endorsing pain to right hip. Improves with immobility and current pain regimen. Tolerating PO intake but currently NPO for OR today with ortho. Voiding via frankel. No bowel movement since admission. Vital signs reviewed. Afebrile, tachycardia improving, normotensive, sating appropriatly on 2L NC Lab work reviewed. Leukocytosis resolved. H&H with mild down trend however likely dilutional. Platelets normal. Mild hyponatremia 132, remainder of lytes acceptable. Mild up trend in BUN/Cr. UOP: 400mL (frankel) BM x 0 since admission ------ PHYSICAL EXAM ------ Vital Signs: Vital Signs (last 24 hrs) Last Charted Temp Axillary H 36.9 DegC (OCTOBER 08 10:36) Heart Rate Monitored H 113 bpm (OCTOBER 08 14:30) SBP 117 mmHg (OCTOBER 08 10:36) DBP 68 mmHg (OCTOBER 08 10:36) Weight 72.2 kg (OCTOBER 08 14:23) BMI 24.93 (OCTOBER 07 18:27) GENERAL: Sitting up in bed, no acute distress. Family at bedside HEENT: Atraumatic, normocephalic CARDIOVASCULAR: RRR. Bilateral radial and DP pulses palpable PULMONARY: Breathing comfortably on 2L NC. Pt given IS. Pulling 750mL. ABDOMINAL: Soft, non distended, non tender. EXTREMITIES: RUE in splint. RLE externally rotated and shortened. NEUROLOGICAL: A&O x3. Motor and sensory grossly intact. GCS 15. LABORATORY RESULTS (LAST 24 HOURS) WBC: 10.8 E9/L (10/09/23 06:10:00) RBC: 3.4 E12/L Low (10/09/23 06:10:00) HGB: 10.8 gm/dL Low (10/09/23 06:10:00) Hct: 31.9 % Low (10/09/23 06:10:00) MCV: 94.9 fL (10/09/23 06:10:00) MCH: 32.1 pg (10/09/23 06:10:00) MCHC: 33.8 gm/dL (10/09/23 06:10:00) RDW: 13.1 % (10/09/23 06:10:00) Platelet: 408 E9/L (10/09/23 06:10:00) MPV: 7.1 fL (10/09/23 06:10:00) Neutro Auto: 78.8 % High (10/09/23 06:10:00) Lymph Auto: 10.5 % Low (10/09/23 06:10:00) Moody Auto: 9.3 % (10/09/23 06:10:00) Eos Auto: 0.9 % (10/09/23 06:10:00) Basophil Auto: 0.5 % (10/09/23 06:10:00) Neutro Absolute: 8.5 E9/L High (10/09/23 06:10:00) Lymph Absolute: 1.1 E9/L (10/09/23 06:10:00) Moody Absolute: 1 E9/L (10/09/23 06:10:00) Eos Absolute: 0.1 E9/L (10/09/23 06:10:00) Basophil Absolute: 0.1 E9/L (10/09/23 06:10:00) Glucose Lvl: 96 mg/dL (10/09/23 06:10:00) BUN: 33 mg/dL High (10/09/23 06:10:00) Creatinine: 0.9 mg/dL (10/09/23 06:10:00) eGFR: 71 mL/min/1.73 m2 (10/09/23 06:10:00) BUN/Creat Ratio: 37 High (10/09/23 06:10:00) Sodium Lvl: 132 mmol/L Low (10/09/23 06:10:00) Potassium Lvl: 3.9 mmol/L (10/09/23 06:10:00) Chloride: 105 mmol/L (10/09/23 06:10:00) CO2: 21 mmol/L (10/09/23 06:10:00) AGAP: 10 mEq/L (10/09/23 06:10:00) Calcium Lvl: 8.3 mg/dL Low (10/09/23 06:10:00) Phosphorus: 3.1 mg/dL (10/09/23 06:10:00) Magnesium: 1.7 mg/dL (10/09/23 06:10:00) Ethanol Lvl: <10 (10/09/23 06:10:00) IMAGING RESULTS (PERSONALLY REVIEWED) All admit imaging and follow up imaging reviewed. No new - ASSESSMENT & PLAN ---- Diagnoses: 1. S/p fall from standing , 10/08/2023 11:57:18 2. Right distal radius and ulna fracture 3. Right intertrochanteric fracture 4. Elevated lipase with pancreas inflammation 5. Dehydration 6. UTI - present on admission 7. Chronic hyponatremia 8.. Acute pain due to trauma PMHx: CAD, chronic hyponatremia, alcohol abuse, HTN, COPD, tobacco abuse Incidental Findings: None, reviewed by Plan: NEURO: acute pain due to trauma. Hx ETOH and tobacco abuse - Tylenol 650mg q6 - Robaxin 500mg QID - oxycodone 5/10 mg q4 PRN for mod/severe pain - CIWA protocol CV: Hx HTN, CAD - Vital signs per unit protocol with telemetry - Holding home ASA and plavix in zainab-op setting - Continue home metoprolol 25mg daily - Continue home nifedipine 30mg daily PULM: Hx COPD. no home O2. Placed on 2L overnight, pulling 750ml on IS - Maintain O2 sats > 88%. Continue pulmonary toilet, en (more content not included)... Normal [facility] [place] Comment on above: Result Comment: Elec tronically Signed By: Jamison HAGAN, Aubrey De La Garza\.br\Date and Time Signed: 10/09/23 17:39 EDT\.br\Electronically Co-Signed By: Art GARCIA, Regi Alvarez\.br\Date and Time Co-Signed: 10/14/23 13:18 EDT Progress Note-Physician GENERAL INFORMATION TRAUMA - STAFF PROGRESS NOTE Patient Name: CATHERINE ADAMSON Admission Date: 10/08/2023 11:57:18 Patient seen and examined on 10/10/2023 INTERVAL HISTORY/EVENTS Background: CATHERINE ADAMSON is a 63 Years-old Female with a PMHx of CAD, chronic hyponatremia, alcohol abuse, HTN, COPD, tobacco abuse presents s/p fall from standing (-)HS, (-)LOC, (+)Plavix. Prolonged down time. Trauma workup found: 1. Right distal radius and ulna fracture 2. Right intertrochanteric fracture 3. Elevated lipase with pancreas inflammation 4. Dehydration 5. UTI patient admitted to [facility] with orthopedics consult. Hospital Course: 10/08/2023: Presented to the ED s/p fall 4 days prior. found above injuries. Admitted to [facility] with orthopedics consult. 10/09/2023: OR with orthopedics for Right hip fracture 24 Hour Events: No acute events overnight per patient or nursing. Pt endorsing pain to right hip. Improves with icurernt pain regimen. Tolerating PO intake without nausea/vomiting. Voiding via frankel. No bowel movement since admission. Vital signs reviewed. Afebrile, tachycardia improving, normotensive, sating appropriately on RA Lab work reviewed. Leukocytosis uptrend, likely reactive from surgery. H&H stable. Platelets normal. Mild hyponatremia 130, remainder of lytes acceptable. Down trend in BUN/Cr. UOP: 560mL (frankel) BM x 0 since admission ------ PHYSICAL EXAM ------ Vital Signs: Vital Signs (last 24 hrs) Last Charted Temp Axillary 36.4 DegC (OCTOBER 09 12:24) Heart Rate Monitored 99 bpm (OCTOBER 09 12:25) Resp Rate 17 br/min (OCTOBER 08 18:25) SBP 96 mmHg (OCTOBER 09 12:24) DBP 69 mmHg (OCTOBER 09 12:) Weight 76.2 kg (OCTOBER 09 06:00) GENERAL: Sitting up in bed, no acute distress. Family at bedside HEENT: Atraumatic, normocephalic CARDIOVASCULAR: RRR. Bilateral radial and DP pulses palpable PULMONARY: Breathing comfortably on 2L NC, weaned to RA. Pt given IS pulling 750mL. ABDOMINAL: Soft, non distended, non tender. EXTREMITIES: RUE in splint. RLE with post op dressing in place. No strikethrough NEUROLOGICAL: A&O x3. Motor and sensory grossly intact. GCS 15. LABORATORY RESULTS (LAST 24 HOURS) Size: .062 (10/09/23 18:07:21) Size: .062 (10/09/23 18:07:21) Size: 11MM [id number] DEGREE (10/09/23 18:07:21) Size: 10.5 X 100 (10/09/23 18:07:21) Size: 5.0 X 38 (10/09/23 18:07:21) WBC: 13.9 E9/L High (10/10/23 05:04:00) RBC: 3.5 E12/L Low (10/10/23 05:04:00) HGB: 11.2 gm/dL Low (10/10/23 05:04:00) Hct: 33.2 % Low (10/10/23 05:04:00) MCV: 95.3 fL (10/10/23 05:04:00) MCH: 32.1 pg (10/10/23 05:04:00) MCHC: 33.7 gm/dL (10/10/23 05:04:00) RDW: 13.3 % (10/10/23 05:04:00) Platelet: 442 E9/L (10/10/23 05:04:00) MPV: 7.2 fL (10/10/23 05:04:00) Neutro Auto: 83.7 % High (10/10/23 05:04:00) Lymph Auto: 7.2 % Low (10/10/23 05:04:00) Moody Auto: 8.6 % (10/10/23 05:04:00) Eos Auto: 0.2 % (10/10/23 05:04:00) Basophil Auto: 0.3 % (10/10/23 05:04:00) Neutro Absolute: 11.7 E9/L High (10/10/23 05:04:00) Lymph Absolute: 1 E9/L (10/10/23 05:04:00) Moody Absolute: 1.2 E9/L High (10/10/23 05:04:00) Eos Absolute: 0 E9/L (10/10/23 05:04:00) Basophil Absolute: 0 E9/L (10/10/23 05:04:00) Glucose Lvl: 146 mg/dL (10/10/23 05:04:00) BUN: 35 mg/dL High (10/10/23 05:04:00) Creatinine: 0.8 mg/dL (10/10/23 05:04:00) eGFR: 82 mL/min/1.73 m2 (10/10/23 05:04:00) BUN/Creat Ratio: 44 High (10/10/23 05:04:00) Sodium Lvl: 130 mmol/L Low (10/10/23 05:04:00) Potassium Lvl: 4.1 mmol/L (10/10/23 05:04:00) Chloride: 103 mmol/L (10/10/23 05:04:00) CO2: 21 mmol/L (10/10/23 05:04:00) AGAP: 10 mEq/L (10/10/23 05:04:00) Calcium Lvl: 8.1 mg/dL Low (10/10/23 05:04:00) Phosphorus: 3.1 mg/dL (10/10/23 05:04:00) Magnesium: 1.7 mg/dL (10/10/23 05:04:00) IMAGING RESULTS (PERSONALLY REVIEWED) All admit imaging and follow up imaging reviewed. No new imaging. - ASSESSMENT & PLAN ---- Diagnoses: 1. S/p fall from standing , 10/08/2023 11:57:18 2. Right distal radius and ulna fracture 3. Right intertrochanteric fracture 4. Elevated lipase with pancreas inflammation 5. Dehydration 6. UTI - present on admission 7. Chronic hyponatremia 8. Acute pain due to trauma 9. Acute post op pain PMHx: CAD, chronic hyponatremia, alcohol abuse, HTN, COPD, tobacco abuse Incidental Findings: None, reviewed by Plan: NEURO: acute pain due to trauma. Hx ETOH and tobacco abuse - Tylenol 650mg q6 - Robaxin 500mg QID - oxycodone 5/10 mg q4 PRN for mod/severe pain - CIWA protocol. Scoring 0. CV: Hx HTN, CAD - Vital signs per unit protocol with telemetry - Holding home ASA and plavi (more content not included)... Normal [facility] Comment on above: Result Comment: Elec tronically Signed By: Jamison HAGAN, Aubrey De La Garza\.br\Date and Time Signed: 10/10/23 13:14 EDT\.br\Electronically Co-Signed By: Art GARCIA, Regi Alvarez\.br\Date and Time Co-Signed: 10/14/23 13:18 EDT Progress Note-Physician Basic Information CATHERINE ADAMSON is a 63 Years-old Female with a PMHx of CAD, chronic hyponatremia, alcohol abuse, HTN, COPD, tobacco abuse presents s/p fall from standing (-)HS, (-)LOC, (+)Plavix. Prolonged down time. Trauma workup found: 1. Right distal radius and ulna fracture 2. Right intertrochanteric fracture 3. Elevated lipase with pancreas inflammation 4. Dehydration 5. UTI patient admitted to [facility] with orthopedics consult. Subjective No acute events overnight. Today patient is complaining of right thigh pain and arm pain. Has been having a low appetite but is tolerating a diet, just not eating much. No fevers or chills, no abdominal pain or vomiting. Patient is on 1 L O2 nasal cannula this morning, states that nursing placed her on oxygen this morning. Patient encouraged to use her incentive spirometer. Hospital Course: 10/08/2023: Presented to the ED s/p fall 4 days prior. found above injuries. Admitted to [facility] with orthopedics consult. 10/09/2023: OR with orthopedics for Right hip fracture 10/10/2023: H&H stable, weaned off O2 Review of Systems All organ systems are reviewed. Pertinent positive and negative findings as mentioned in the HPI. Objective Vitals & Measurements T: 36.5 ?C(Oral) TMIN: 36.3 ?C(Axillary) TMAX: 36.6 ?C(Axillary) HR: 82(Monitored) RR: 16 BP: 107/63 SpO2: 95% WT: 50.6 kg Intake & Output This visit (24 hour periods starting at 07:00 EDT) 10/11/23 * 10/10/23 10/09/23 Total Summary Intake mL -- 1,380 2,013.03 Output mL -- 675 560 Fluid Balance -- 705 1,453.03 Intake (14) Lactated Ringers Injection mL -- -- 1,200 Lactated Ringers Injection 1,000 mL mL -- -- 50 Oral Intake mL -- 1,380 680 Sodium Chloride 0.9%, cefazolin mL -- -- 50 dexamethasone mL -- -- 1 fentanyl mL -- -- 2 hydromorphone mL -- -- 2 ketorolac mL -- -- 1 lidocaine mL -- -- 2 midazolam mL -- -- 2 morphine mL -- -- 1 ondansetron mL -- -- 2 phenylephrine mL -- -- 0.03 propofol mL -- -- 20 Total -- 1,380 2,013.03 Output (2) Urine Catheter mL -- 675 550 Urine Count mL -- -- 10 Total -- 675 560 Counts (2) Stool Count -- 2 -- Urine Count mL -- -- 10 * This column has not completed the indicated time period. Physical Exam GENERAL: alert, pleasant, conversational. HEENT: normocephalic. oral mucosa moist. CARDIOVASCULAR: RRR. PULMONARY: CTAB. breathing comfortably on 1 L nasal cannula. ABDOMINAL: abdomen is nontender., nondistended. EXTREMITIES: moves all extremities with equal strength. RUE in splint. RLE with post op dressing in place. No strikethrough. NEUROLOGICAL: AxO x3 Lab Results WBC: 9.9 E9/L (10/11/23 05:05:00) RBC: 2.7 E12/L Low (10/11/23 05:05:00) HGB: 9.1 gm/dL Low (10/11/23 05:05:00) Hct: 25.9 % Low (10/11/23 05:05:00) MCV: 94.5 fL (10/11/23 05:05:00) MCH: 33.3 pg (10/11/23 05:05:00) MCHC: 35.2 gm/dL (10/11/23 05:05:00) RDW: 13.3 % (10/11/23 05:05:00) Platelet: 309 E9/L (10/11/23 05:05:00) MPV: 7.1 fL (10/11/23 05:05:00) Neutro Auto: 73.1 % (10/11/23 05:05:00) Lymph Auto: 13 % Low (10/11/23 05:05:00) Moody Auto: 9.3 % (10/11/23 05:05:00) Eos Auto: 4.3 % (10/11/23 05:05:00) Basophil Auto: 0.3 % (10/11/23 05:05:00) Neutro Absolute: 7.3 E9/L (10/11/23 05:05:00) Lymph Absolute: 1.3 E9/L (10/11/23 05:05:00) Moody Absolute: 0.9 E9/L (10/11/23 05:05:00) Eos Absolute: 0.4 E9/L (10/11/23 05:05:00) Basophil Absolute: 0 E9/L (10/11/23 05:05:00) Glucose Lvl: 92 mg/dL (10/11/23 05:05:00) BUN: 31 mg/dL High (10/11/23 05:05:00) Creatinine: 0.7 mg/dL (10/11/23 05:05:00) eGFR: 96 mL/min/1.73 m2 (10/11/23 05:05:00) BUN/Creat Ratio: 44 High (10/11/23 05:05:00) Sodium Lvl: 129 mmol/L Low (10/11/23 05:05:00) Potassium Lvl: 3.9 mmol/L (10/11/23 05:05:00) Chloride: 102 mmol/L (10/11/23 05:05:00) CO2: 22 mmol/L (10/11/23 05:05:00) AGAP: 9 mEq/L (10/11/23 05:05:00) Calcium Lvl: 7.8 mg/dL Low (10/11/23 05:05:00) Phosphorus: 2.4 mg/dL (10/11/23 05:05:00) Magnesium: 1.6 mg/dL (10/11/23 05:05:00) Glucose Cap: 108 mg/dL High (10/11/23 08:05:00) POC Device SN: [id number] (10/11/23 08:05:00) POC User ID: [id number] (10/11/23 08:05:00) POC Username: JERED JIANG (10/11/23 08:05:00) Images - ASSESSMENT & PLAN ---- Diagnoses: 1. S/p fall from standing , 10/08/2023 11:57:18 2. Right distal radius and ulna fracture 3. Right intertrochanteric fracture 4. Elevated lipase with pancreas inflammation 5. Dehydration 6. UTI - present on admission 7. Chronic hyponatremia 8. Acute pain due to trauma 9. Acute post op pain 10. Chronic hyponatremia PMHx: CAD, chronic hyponatremia, alcohol abuse, HTN, COPD, tobacco abuse Incidental Findings: None, reviewed by Plan: NEURO: acute pain due to trauma. Hx ETOH and (more content not included)... Normal [facility] Comment on above: Result Comment: Elec tronically Signed By: Mckenzie Lerma PA-C\.br\Date and Time Signed: 10/11/23 08:55 EDT\.br\Electronically Co-Signed By: Art GARCIA, Regi Alvarez\.br\Date and Time Co-Signed: 10/14/23 12:20 EDT CBC w/ Auto Diffon 4 Basophils/100 WBC (Bld) 0.3 % Normal 0.0-2.0 [facility] Comment on above: Performed By: #### 2 [id number] #### [facility] Laboratory [address] [place] [address] Basophils/Leukocyte s Auto (Bld) [Pure # fraction] 0.0 E9/L Normal 0.0-0.2 [facility] Comment on above: Performed By: #### 2 [id number] #### [facility] Laboratory [address] [place] [address] Eosinophils (Bld) [#/Vol] 0.3 E9/L Normal 0.0-0.5 [facility] Comment on above: Performed By: #### 2 [id number] #### [facility] Laboratory [address] [place] [address] Eosinophils/100 WBC (Bld) 3.9 % Normal 0.0-8.0 [facility] Comment on above: Performed By: #### 2 [id number] #### [facility] Laboratory [address] [place] [address] Erythrocyte distribution width (RBC) [Ratio] 13.6 % Normal 10.9-14.2 [facility] Comment on above: Performed By: #### 2 [id number] #### [facility] Laboratory [address] [place] [address] Hematocrit (Bld) [Volume fraction] 27.3 % Low 34.0-46.0 [facility] Comment on above: Performed By: #### 2 [id number] #### [facility] Laboratory [address] [place] [address] Hemoglobin (Bld) [Mass/Vol] 9.2 g/dL Low 12.0-16.0 [facility] Comment on above: Performed By: #### 2 [id number] #### [facility] Laboratory [address] [place] [address] Lymphocytes (Bld) [#/Vol] 0.9 E9/L Low 1.0-4.0 [facility] Comment on above: Performed By: #### 2 [id number] #### [facility] Laboratory [address] [place] [address] Lymphocytes/100 WBC (Bld) 12.3 % Low 14.0-50.0 [facility] Comment on above: Performed By: #### 2 [id number] #### [facility] Laboratory [address] [place] [address] MCH (RBC) [Entitic mass] 32.4 pg Normal 27.0-34.0 [facility] Comment on above: Performed By: #### 2 [id number] #### [facility] Laboratory [address] [place] [address] MCHC (RBC) [Mass/Vol] 33.8 g/dL Normal 31.4-36.0 [facility] Comment on above: Performed By: #### 2 [id number] #### [facility] Laboratory [address] [place] [address] MCV (RBC) [Entitic vol] 95.9 fL Normal 80.0-100.0 [facility] Comment on above: Performed By: #### 2 [id number] #### [facility] Laboratory [address] [place] [address] Monocytes (Bld) [#/Vol] 0.7 E9/L Normal 0.2-1.0 [facility] Comment on above: Performed By: #### 2 [id number] #### [facility] Laboratory [address] [place] [address] Neutrophils (Bld) [#/Vol] 5.2 E9/L Normal 2.0-7.5 [facility] Comment on above: Performed By: #### 2 [id number] #### [facility] Laboratory [address] [place] [address] Neutrophils/100 WBC (Bld) 73.3 % Normal 36.0-75.0 [facility] Comment on above: Performed By: #### 2 [id number] #### [facility] Laboratory [address] [place] [address] Platelet 335.0 E9/L Normal 150.0-500. 0 [facility] Comment on above: Performed By: #### 2 [id number] #### [facility] Laboratory [address] [place] [address] Platelet mean volume (Bld) [Entitic vol] 7.2 fL Normal 6.4-10.8 [facility] Comment on above: Performed By: #### 2 [id number] #### [facility] Laboratory [address] [place] [address] RBC (Bld) [#/Vol] 2.9 E12/L Low 4.3-5.9 [facility] Comment on above: Performed By: #### 2 [id number] #### [facility] Laboratory [address] [place] [address] WBC corrected for nucl RBC Auto (Bld) [#/Vol] 7.0 E9/L Normal 4.0-11.0 [facility] Comment on above: Result Comment: Zainab pheral smear review performed. Performed By: #### 2 [id number] #### [facility] Laboratory [address] [place] [address] CHEMISTRYOrdered By: SYSTEM SYSTEM on 10-12-2023 Anion gap [Moles/Vol] 7 mmol/L Normal 6 - 16 mEq/L Remisol Chem Calcium [Mass/Vol] 8.0 mg/dL Low 8.9 - 11. 1 mg/dL Remisol Chem Chloride [Moles/Vol] 101 mmol/L Normal 101 - 111 mmol/L Remisol Chem CO2 [Moles/Vol] 25 mmol/L Normal 21 - 31 mmol/L Remisol Chem Creatinine [Mass/Vol] 0.5 mg/dL Normal 0.5 - 1.3 mg/dL Remisol Chem eGFR 104 mL/min/1.73 m2 Normal >=59mL/mi n /1.73 m2 Remisol Chem Glucose [Mass/Vol] 97 mg/dL Normal 55 - 199 mg/dL Remisol Chem Magnesium [Mass/Vol] 1.9 mg/dL Normal 1.3 - 2.4 mg/dL Remisol Chem Phosphate [Mass/Vol] 2.2 mg/dL Normal 1.9 - 4.6 mg/dL Remisol Chem Potassium [Moles/Vol] 4.0 mmol/L Normal 3.5 - 5.3 mmol/L Remisol Chem Sodium [Moles/Vol] 129 mmol/L Low 135 - 145 mmol/L Remisol Chem Urea nitrogen [Mass/Vol] 17 mg/dL Normal 5 - 21 mg/dL Remisol Chem Urea nitrogen/Creatinine [Mass ratio] 34 mg/mg High 10 - 20 Remisol Chem Coding Queryon 10-12-2023 Coding Query - From: Quynh DICKINSON, An To: Mckenzie Lerma PA-C; Sent: 10/12/2023 13:24:02 EDT ! Subject: Coding Query Due Date/Time: 10/13/2023 13:24:00 EDT Caller Name: CATHERINE ADAMSON; Caller Number: H Clinical evidence indicates that this patient is currently using alcohol or drugs. dc summary- Pt and family report that patient is a heavy drinker of 6-8 drinks a day. Denies any history of ETOH abuse. Pt last drink was when she fell. 10/08 SW-This SW responded to a consult on [address] [place] [address] regarding ETOH / Substance abuse. Patient stated that her last alcoholic beverage was on afternoon. Patient alcohol of choice is beer and she typically consumes 6-8 daily. Patient has never attempted to quit in the past and stated that she doesn't plan to quit now. Patient stated that she enjoys drinking and isn't hurting anyone besides herself. Patient stated that she is 63 years old and plans on going out with a bang. Social history by nursing-beer daily 6 drinks/episode average. 8.00 drinks episode maximum. Started age 16 hears. Previous treatment- alcoholics anonymous, inpatient, Drinks more than intended-yes Please indicate the substances that are being abused or for which the patient is dependent, and clarify further. Please select at least one item from each category. Substance [___]Alcohol Use: [___]Dependence, continuous Complication: [___]Uncomplicated [___]Unspecified [___]Other: In responding to this request, please exercise your independent professional judgement. The fact that a question is asked does not imply that any particular answer is desired or expected. Thank you! An [phone] Normal [facility] Discharge Note-Nursingon Discharge Note-Nursing CATHERINE ADAMSON :1960 Visit Date:10/08/2023 Inpatient Discharge Instructions Your Care Team Admitting Physician - Art GARCIA, Regi Alavrez Reason for Your Visit fall, right hip fx, right arm fx Your Diagnosis Alcohol abuse Colles' fracture Dizziness Fall Hip fracture, right Hip pain-swelling Leg pain-swelling Pancreatitis, acute Rhabdomyolysis Tests Performed CT Abdomen/Pelvis w/o Contrast CT C-Spine w/o Contrast CT Chest w/o Contrast CT Head or Brain w/o Contrast XR Forearm 2 Views Right XR Hip 2-3 Views Right XR Hip 2-3 Views Right + Pelvis XR Wrist 2 Views Right XR Wrist 3+ Views Right This Is Your Medications List NIFEdipine (NIFEdipine 30 mg ER Tab) acetaminophen (acetaminophen 325 mg Tab) albuterol (Ventolin HFA 90 mcg/inh Aerosol) apremilast ascorbic acid (ascorbic acid 500 mg Tab) aspirin (aspirin 81 mg Oral EC Tab) bisacodyl (bisacodyl 10 mg Supp) bisacodyl (bisacodyl 5 mg Oral EC Tab) budesonide-formoterol (Symbicort 80/4.5 inhalation aerosol with adapter) cefdinir (cefdinir 300 mg Cap) clopidogrel (clopidogrel 75 mg Tab) enoxaparin ferrous sulfate (ferrous sulfate 325 mg Tab) folic acid (folic acid 1 mg Tab) methocarbamol (Robaxin 500 mg Tab) metoprolol (metoprolol 25 mg ER Tab) nitroglycerin oxycodone (oxyCODONE 5 mg Tab) potassium chloride (Potassium Chloride (Cwb-Prbm-Zuh 10)) senna (senna 8.6 mg Tab) sodium chloride (sodium chloride 1 g Tab) thiamine (thiamine 100 mg Tab) [Image Removed: STOP]Stop taking these medications hydrochlorothiazide-lisinopril (hydrochlorothiazide-lisinopri l 12.5 mg-20 mg Tab) magnesium sulfate/potass Cl/sodium sulf (Sutab oral tablet) tramadol (traMADOL 50 mg Tab) Procedure History ORIF - Open reduction and internal fixation of fracture (10/09/2023), Arthroscopy and biopsy of knee, Arthrotomy of knee, Tubal ligation. Discharge Vitals Temperature (Axillary) 36.7 ?C Heart Rate (Monitored) 93 Respiratory Rate 18 Blood Pressure 99/60 Weight 50.6 kg What to do next Instructions From Your Doctor Event Name Event Result Discharge Instructions Freetext 50% partial weight right hip 4 weeks.Jose out right hip 2-3 weeks.No weight right arm 4 weeks. F/u right arm 2-3 weeks for recheck.Fall precautions. Discharge Activity Arrange for a responsible adult supervision for 24 hours, Expect mild pain, Expect minimal amount of drainage and/or bleeding, Partial weight bearing, Do not lift more than 5 lbs Discharge Restrictions No driving, Do not operate machinery or tools, Do not make important decisions for 24 hours, Do not drink alcoholic beverages for 24 hours Discharge Diet(s) Regular Call Your Doctor For Persistent or heavy bleeding, Temperature above 101.5 degrees, Redness, swelling, or pus at operative site, Severe pain at the operative site, Persistent vomiting Wound Care Do not remove dressing, Keep incision dry Discharge Instructions Discharge Instructions New Follow Up Appointments after Discharge Follow Up with Chana Lemons When: Comments: Call for followup appointment 2-3 weeks for staple removal right hip and recheck right wrist and hip. Where: [address] [place] [phone] Business (1) Follow Up with XIMENA ASTUDILLO When: In 0 days Where: [address] [phone] Business (1) Medications What How Much When Instructions Next Dose New acetaminophen (acetaminophen 325 mg Tab) 2 Tablets By Mouth Every 6 hours New ascorbic acid (ascorbic acid 500 mg Tab) 1 Tablets By Mouth Twice a day (with meals) New bisacodyl (bisacodyl 10 mg Supp) 1 Suppositories By rectum Every day as needed for Constipation New bisacodyl (bisacodyl 5 mg Oral EC Tab) 2 Tablets By Mouth Once as needed for Constipation New cefdinir (cefdinir 300 mg Cap) 1 Capsules By Mouth Every 12 hours Duration: 5 Days Printed Prescription New enoxaparin 30 Milligram Subcutaneous 2 times a day Duration: 30 Days New ferrous sulfate (ferrous sulfate 325 mg Tab) 1 Tablets By Mouth Twice a day (with meals) New folic acid (folic acid 1 mg Tab) 1 Tablets By Mouth Every day New methocarbamol (Robaxin 500 mg Tab) 1 Tablets By Mouth 4 times a day New oxycodone (oxyCODONE 5 mg Tab) 1 Tablets By Mouth Every 6 hours as needed for for pain Duration: 5 Days Printed Prescription New senna (senna 8.6 mg Tab) 1 Tablets By Mouth Once a day (at bedtime) New thiamine (thiamine 100 mg Tab) 1 Tablets By Mouth Every day Changed sodium chloride (sodium chloride 1 g Tab) 1 Tablets By Mouth Every day Unchanged albuterol (Ventolin HFA 90 mcg/ inh Aerosol) Inhalation Every 6 hours Unchanged apremilast 30 Milligram By Mouth Every day Unchanged aspirin (aspirin 81 mg Oral EC Tab) By Mouth Every day Unchanged budesonide-formoterol (Symbicort 80/ 4.5 inhalation aerosol with adapter) 2 Puffs Inhalation 2 times a day (more content not included)... Normal [facility] HEMATOLOGYOrdered By: SYSTEM SYSTEM on 10-12-2023 Basophils/100 WBC (Bld) 0.3 % Normal 0.0 - 2.0 % Remisol Heme Basophils/Leukocyte s Auto (Bld) [Pure # fraction] 0.0 E9/L Normal 0.0 - 0.2 E9/L Remisol Heme Eosinophils (Bld) [#/Vol] 0.3 E9/L Normal 0.0 - 0.5 E9/L Remisol Heme Eosinophils/100 WBC (Bld) 3.9 % Normal 0.0 - 8.0 % Remisol Heme Erythrocyte distribution width (RBC) [Ratio] 13.6 % Normal 10.9 - 14.2 % Remisol Heme Hematocrit (Bld) [Volume fraction] 27.3 % Low 34.0 - 46.0 % Remisol Heme Hemoglobin (Bld) [Mass/Vol] 9.2 g/dL Low 12.0 - 16.0 gm/dL Remisol Heme Lymphocytes (Bld) [#/Vol] 0.9 E9/L Low 1.0 - 4.0 E9/L Remisol Heme Lymphocytes/100 WBC (Bld) 12.3 % Low 14.0 - 50.0 % Remisol Heme MCH (RBC) [Entitic mass] 32.4 pg Normal 27.0 - 34.0 pg Remisol Heme MCHC (RBC) [Mass/Vol] 33.8 g/dL Normal 31.4 - 36.0 gm/dL Remisol Heme MCV (RBC) [Entitic vol] 95.9 fL Normal 80.0 - 100.0 fL Remisol Heme Monocytes (Bld) [#/Vol] 0.7 E9/L Normal 0.2 - 1.0 E9/L Remisol Heme Monocytes/100 WBC (Bld) 10.2 % Normal 4.0 - 14.0 % Remisol Heme Neutrophils (Bld) [#/Vol] 5.2 E9/L Normal 2.0 - 7.5 E9/L Remisol Heme Neutrophils/100 WBC (Bld) 73.3 % Normal 36.0 - 75.0 % Remisol Heme Platelet 335.0 E9/L Normal 150.0 - 500.0 E9/L Remisol Heme Platelet mean volume (Bld) [Entitic vol] 7.2 fL Normal 6.4 - 10.8 fL Remisol Heme RBC (Bld) [#/Vol] 2.9 E12/L Low 4.3 - 5.9 E12/L Remisol Heme WBC corrected for nucl RBC Auto (Bld) [#/Vol] 7.0 E9/L Normal 4.0 - 11.0 E9/L Remisol Heme Comment on above: Result Comment: Zainab pheral smear review performed. Interdisciplinary Note - Gregory e Manageron 10-12-2023 Interdisciplinary Note - Medical Anthropology Director CRM spoke with patient in room. Patient is alert and oriented and participates in discharge planning. No family in room. Patient white board updated, and CRM contact information provided. Discussed CRM spoke with Dr Cordova who saw patient earlier today and she will discharge to [facility] today. Patient states she could not get up today d/t pain and dizziness, will use [facility] to transport. . Reviewed Medicare rights, she denies any questions. Normal [facility] Comment on above: Result Comment: Elec tronically Signed By: Jose E DICKINSON, Luanne\.br\Date and Time Signed: 10/12/23 11:02 EDT Monitor Recordon 10-12-2023 Monitor Record [id number] Normal [facility] Monitor Record [id number] Normal [facility] BMPon 10-11-2023 Anion gap [Moles/Vol] 9 mmol/L Normal 6-16 [facility] Comment on above: Performed By: #### 2 [id number] #### [facility] Laboratory [address] [place] [address] Calcium [Mass/Vol] 7.8 mg/dL Low 8.9-11.1 [facility] Comment on above: Performed By: #### 2 [id number] #### [facility] Laboratory [address] [place] [address] Chloride [Moles/Vol] 102 mmol/L Normal 101-111 [facility] Comment on above: Performed By: #### 2 [id number] #### [facility] Laboratory [address] [place] [address] CO2 [Moles/Vol] 22 mmol/L Normal 21-31 [facility] Comment on above: Performed By: #### 2 [id number] #### [facility] Laboratory [address] [place] [address] Creatinine [Mass/Vol] 0.7 mg/dL Normal 0.5-1.3 [facility] Comment on above: Performed By: #### 2 [id number] #### [facility] Laboratory [address] [place] [address] Glucose [Mass/Vol] 92 mg/dL Normal 55-199 [facility] Comment on above: Performed By: #### 2 [id number] #### [facility] Laboratory [address] [place] [address] Potassium [Moles/Vol] 3.9 mmol/L Normal 3.5-5.3 [facility] Comment on above: Performed By: #### 2 [id number] #### [facility] Laboratory [address] [place] [address] Sodium [Moles/Vol] 129 mmol/L Low 135-145 [facility] Comment on above: Performed By: #### 2 [id number] #### [facility] Laboratory [address] [place] [address] Urea nitrogen [Mass/Vol] 31 mg/dL High 5-21 [facility] Comment on above: Performed By: #### 2 [id number] #### [facility] Laboratory [address] [place] [address] Urea nitrogen/Creatinine [Mass ratio] 44 No Units High 10-20 [facility] Comment on above: Performed By: #### 2 [id number] #### [facility] Laboratory [address] [place] [address] CBC w/ Auto Diffon 4 Basophils/100 WBC (Bld) 0.3 % Normal 0.0-2.0 [facility] Comment on above: Performed By: #### 2 [id number] #### [facility] Laboratory [address] [place] [address] Basophils/Leukocyte s Auto (Bld) [Pure # fraction] 0.0 E9/L Normal 0.0-0.2 [facility] Comment on above: Performed By: #### 2 [id number] #### [facility] Laboratory [address] [place] [address] Eosinophils (Bld) [#/Vol] 0.4 E9/L Normal 0.0-0.5 [facility] Comment on above: Performed By: #### 2 [id number] #### [facility] Laboratory [address] [place] [address] Eosinophils/100 WBC (Bld) 4.3 % Normal 0.0-8.0 [facility] Comment on above: Performed By: #### 2 [id number] #### [facility] Laboratory [address] [place] [address] Erythrocyte distribution width (RBC) [Ratio] 13.3 % Normal 10.9-14.2 [facility] Comment on above: Performed By: #### 2 [id number] #### [facility] Laboratory [address] [place] [address] Hematocrit (Bld) [Volume fraction] 25.9 % Low 34.0-46.0 [facility] Comment on above: Performed By: #### 2 [id number] #### [facility] Laboratory [address] [place] [address] Hemoglobin (Bld) [Mass/Vol] 9.1 g/dL Low 12.0-16.0 [facility] Comment on above: Performed By: #### 2 [id number] #### [facility] Laboratory [address] [place] [address] Lymphocytes (Bld) [#/Vol] 1.3 E9/L Normal 1.0-4.0 [facility] Comment on above: Performed By: #### 2 [id number] #### [facility] [address] [place] [address] Lymphocytes/100 WBC (Bld) 13.0 % Low 14.0-50.0 [facility] Comment on above: Performed By: #### 2 [id number] #### [facility] [address] [place] [address] MCH (RBC) [Entitic mass] 33.3 pg Normal 27.0-34.0 [facility] Comment on above: Performed By: #### 2 [id number] #### [facility] Laboratory [address] [place] [address] MCHC (RBC) [Mass/Vol] 35.2 g/dL Normal 31.4-36.0 [facility] Comment on above: Performed By: #### 2 [id number] #### [facility] Laboratory [address] [place] [address] MCV (RBC) [Entitic vol] 94.5 fL Normal 80.0-100.0 [facility] Comment on above: Performed By: #### 2 [id number] #### [facility] Laboratory [address] [place] [address] Monocytes (Bld) [#/Vol] 0.9 E9/L Normal 0.2-1.0 [facility] Comment on above: Performed By: #### 2 [id number] #### [facility] [address] [place] [address] Neutrophils (Bld) [#/Vol] 7.3 E9/L Normal 2.0-7.5 [facility] Comment on above: Performed By: #### 2 [id number] #### [facility] Laboratory [address] [place] [address] Neutrophils/100 WBC (Bld) 73.1 % Normal 36.0-75.0 [facility] Comment on above: Performed By: #### 2 [id number] #### [facility] Laboratory [address] [place] [address] Platelet 309.0 E9/L Normal 150.0-500. 0 [facility] Comment on above: Performed By: #### 2 [id number] #### [facility] Laboratory [address] [place] [address] Platelet mean volume (Bld) [Entitic vol] 7.1 fL Normal 6.4-10.8 [facility] Comment on above: Performed By: #### 2 [id number] #### [facility] Laboratory [address] [place] [address] RBC (Bld) [#/Vol] 2.7 E12/L Low 4.3-5.9 [facility] Comment on above: Performed By: #### 2 [id number] #### [facility] Laboratory [address] [place] [address] WBC corrected for nucl RBC Auto (Bld) [#/Vol] 9.9 E9/L Normal 4.0-11.0 [facility] Comment on above: Performed By: #### 2 [id number] #### [facility] Laboratory [address] [place] [address] CHEMISTRYOrdered By: Lab ROP User on 10-11-2023 Glucose [Mass/Vol] 108 mg/dL High 55 - 99 mg/dL [facility] POC Subsection Comment on above: Result Comment: Danny mayes RN/ POC Device SN [id number] Invalid Interpretation Code [facility] POC Subsection POC User ID [id number] 1 Invalid Interpretation Code [facility] POC Subsection POC Username JERED JIANG Invalid Interpretation Code [facility] POC Subsection CHEMISTRYOrdered By: SYSTEM SYSTEM on 10-11-2023 Anion gap [Moles/Vol] 9 mmol/L Normal 6 - 16 mEq/L Remisol Chem Calcium [Mass/Vol] 7.8 mg/dL Low 8.9 - 11. 1 mg/dL Remisol Chem Chloride [Moles/Vol] 102 mmol/L Normal 101 - 111 mmol/L Remisol Chem CO2 [Moles/Vol] 22 mmol/L Normal 21 - 31 mmol/L Remisol Chem Creatinine [Mass/Vol] 0.7 mg/dL Normal 0.5 - 1.3 mg/dL Remisol Chem eGFR 96 mL/min/1.73 m2 Normal >=59mL/min /1.73 m2 Remisol Chem Glucose [Mass/Vol] 92 mg/dL Normal 55 - 199 mg/dL Remisol Chem Magnesium [Mass/Vol] 1.6 mg/dL Normal 1.3 - 2.4 mg/dL Remisol Chem Phosphate [Mass/Vol] 2.4 mg/dL Normal 1.9 - 4.6 mg/dL Remisol Chem Potassium [Moles/Vol] 3.9 mmol/L Normal 3.5 - 5.3 mmol/L Remisol Chem Sodium [Moles/Vol] 129 mmol/L Low 135 - 145 mmol/L Remisol Chem Urea nitrogen [Mass/Vol] 31 mg/dL High 5 - 21 mg/dL Remisol Chem Urea nitrogen/Creatinine [Mass ratio] 44 mg/mg High 10 - 20 Remisol Chem Capillary Glucose POCon 09-13 Glucose [Mass/Vol] 108 mg/dL High 55-99 [facility] Comment on above: Result Comment: Danny mayes RN/ Performed By: #### 2 [id number] #### [facility] Laboratory [address] [place] [address] Consent for Anesthesiaon Consent for Anesthesia [id number] Normal [facility] HEMATOLOGYOrdered By: SYSTEM SYSTEM on 10-11-2023 Basophils/100 WBC (Bld) 0.3 % Normal 0.0 - 2.0 % Remisol Heme Basophils/Leukocyte s Auto (Bld) [Pure # fraction] 0.0 E9/L Normal 0.0 - 0.2 E9/L Remisol Heme Eosinophils (Bld) [#/Vol] 0.4 E9/L Normal 0.0 - 0.5 E9/L Remisol Heme Eosinophils/100 WBC (Bld) 4.3 % Normal 0.0 - 8.0 % Remisol Heme Erythrocyte distribution width (RBC) [Ratio] 13.3 % Normal 10.9 - 14.2 % Remisol Heme Hematocrit (Bld) [Volume fraction] 25.9 % Low 34.0 - 46.0 % Remisol Heme Hemoglobin (Bld) [Mass/Vol] 9.1 g/dL Low 12.0 - 16.0 gm/dL Remisol Heme Lymphocytes (Bld) [#/Vol] 1.3 E9/L Normal 1.0 - 4.0 E9/L Remisol Heme Lymphocytes/100 WBC (Bld) 13.0 % Low 14.0 - 50.0 % Remisol Heme MCH (RBC) [Entitic mass] 33.3 pg Normal 27.0 - 34.0 pg Remisol Heme MCHC (RBC) [Mass/Vol] 35.2 g/dL Normal 31.4 - 36.0 gm/dL Remisol Heme MCV (RBC) [Entitic vol] 94.5 fL Normal 80.0 - 100.0 fL Remisol Heme Monocytes (Bld) [#/Vol] 0.9 E9/L Normal 0.2 - 1.0 E9/L Remisol Heme Monocytes/100 WBC (Bld) 9.3 % Normal 4.0 - 14.0 % Remisol Heme Neutrophils (Bld) [#/Vol] 7.3 E9/L Normal 2.0 - 7.5 E9/L Remisol Heme Neutrophils/100 WBC (Bld) 73.1 % Normal 36.0 - 75.0 % Remisol Heme Platelet 309.0 E9/L Normal 150.0 - 500.0 E9/L Remisol Heme Platelet mean volume (Bld) [Entitic vol] 7.1 fL Normal 6.4 - 10.8 fL Remisol Heme RBC (Bld) [#/Vol] 2.7 E12/L Low 4.3 - 5.9 E12/L Remisol Heme WBC corrected for nucl RBC Auto (Bld) [#/Vol] 9.9 E9/L Normal 4.0 - 11.0 E9/L Remisol Heme Insurance Correspondence Off ice10-11-2023 Insurance Correspondence Office [id number]#[id number] Normal [facility] Interdisciplinary Note - Gregory e Manageron 10-11-2023 Interdisciplinary Note - Medical Anthropology Director CRM spoke with patient and daughter in room. Patient is alert and oriented and participates in discharge planning. Patient white board updated, and CRM contact information provided. Discussed Dr Cordova will see patient today. She states Dr lemons was into see her today. Discussed [facility] had accepted and precert was obtained for dc today. Patient now asking if she can go to [facility] and not [facility]. Will need to see if they take her insurance and have any beds. If they cannot she will go to [facility]. She is asking to stay a couple days yet and discussed if medically ready for discharge she will need to sd. Patient will need transport at sd. Reviewed Medicare rights, she denies any questions. Gave her a copy of signed form. Correction to above sister August in room not daughter. Informed patient and sister [facility] does take her insurance and referral has been sent, waiting acceptance and will need a precert. And per Gen sx will stay today and work to wean oxygen. Normal [facility] Comment on above: Result Comment: Elec tronically Signed By: Jose E DICKINSON, Luanne\.br\Date and Time Signed: 10/11/23 10:26 EDT IntraOperative Documentson 0 10-11-2023 IntraOperative Documents [id number] Normal [facility] Magnesiumon 10-11-2023 Magnesium [Mass/Vol] 1.6 mg/dL Normal 1.3-2.4 [facility] Comment on above: Performed By: #### 2 [id number] #### [facility] Laboratory [address] [place] [address] Monitor Recordon 10-11-2023 Monitor Record [id number]#1.00TIFF Normal [facility] Monitor Record [id number]#1.00TIFF Normal [facility] Phosphoruson 10-11-2023 Phosphate [Mass/Vol] 2.4 mg/dL Normal 1.9-4.6 [facility] Comment on above: Performed By: #### 2 [id number] #### [facility] Laboratory [address] [place] [address] Progress Note-Physicianon Progress Note-Physician Patient: CATHERINE ADAMSON Age: 63 years Sex: Female : 1960 Associated Diagnoses: None Author: Gary Álvarez Jr, DO Preoperative Information Anesthesia Preop Info: Time patient last ate or drank 10/09/2023 00:00:00. Anesthesia history: Patient history: None. Family history+: None. Informed consent: Signed by patient. Re-evaluation prior to induction: Initial evaluation reviewed: No significant change. Review of Systems Eye: Negative except as documented in history of present illness. Ear/Nose/Mouth/Throat: Negative except as documented in history of present illness. Respiratory: Negative except as documented in history of present illness. Cardiovascular: Negative except as documented in history of present illness. Musculoskeletal: Negative except as documented in history of present illness. Neurologic: Negative except as documented in history of present illness. Health Status Allergies: Allergic Reactions (Selected) No Known Allergies Problem list: All Problems Smoker / SNOMED CT 777561476 / Confirmed Added secondary to documentation in Social History. Elevated ferritin level / SNOMED CT 351921408 / Confirmed Pleural effusion / SNOMED CT 13314475 / Confirmed Screen for colon cancer / SNOMED CT 779336243 / Confirmed Osteoarthritis / SNOMED CT 3165104162 / Confirmed LFT elevation / SNOMED CT 3801778696 / Confirmed Ischemic hepatitis / SNOMED CT 816866797 / Confirmed Hyponatremia / SNOMED CT 982959943 / Confirmed Hyperlipidemia / SNOMED CT 01226557 / Confirmed Essential hypertension / SNOMED CT 19648613 / Confirmed ASHD (arteriosclerotic heart disease) / SNOMED CT 40704195 / Confirmed COPD (chronic obstructive pulmonary disease) / SNOMED CT 99501380 / Confirmed COPD (chronic obstructive pulmonary disease) / SNOMED CT 77213623 / Confirmed At risk for falls / SNOMED CT 917937211 / Possible Problem added when Risk for Falls Careplan was initiated. Aortic valve stenosis / SNOMED CT 824503089 / Confirmed Anemia / SNOMED CT 395886993 / Confirmed Resolved: Knee DJD / SNOMED CT 9561928180 Histories Procedure history: Arthrotomy of knee (52873043). Arthroscopy and biopsy of knee (589750258). Tubal ligation (728158554). Social History Social & Psychosocial Habits Alcohol 10/09/2023 Use: Current Type: Beer Frequency: Daily Average drinks per episode in last year: 6 Maximum drinks per episode in last year: 8.00 Started at age: 16 Years Previous treatment: Alcoholics Anonymous, Inpatient Has alcohol use interfered with work or home life? No Do you ever drink more than intended? Yes Has anyone been hurt or at risk by your drinking? No Ready to change: No Concerns about alcohol use in household: No 10/09/2023 Type: Beer Frequency: Daily Comment: over a six pack per day - 10/08/2023 13:15 - Light RNAubrey Substance Abuse 10/09/2023 Risk Assessment: Denies Substance Abuse Tobacco 10/09/2023 Tobacco Use: 5-9 cigarettes (between 1 Type: Cigarettes . Physical Examination Airway: Mallampati classification: II (soft palate, fauces, uvula visible). Respiratory: adequate air exchange. Cardiovascular: Regular rhythm. Plan [place] [employer] (ASA) physical status classification: Class IV. Anesthetic Preoperative Plan: Anesthesia General. Normal [facility] Comment on above: Result Comment: Elec tronically Signed By: Gary Álvarez Jr, DO\.br\Date and Time Signed: 10/11/23 16:52 EDT Progress Note-Physician Patient: CATHERINE ADAMSON Age: 63 years Sex: Female : 1960 Associated Diagnoses: None Author: Gary Álvarez Jr, DO Postoperative Information Postoperative disposition: Postoperative disposition: To PACU. Optimetrix number: Optimetrix number [id number]. Anesthetic utilized: General. Health Status Allergies: Allergic Reactions (Selected) No Known Allergies Physical Examination Vital Signs 10/09/2023 18:00 EDT Heart Rate Monitored 89 bpm Respiratory Rate Monitored 13 br/min Systolic Blood Pressure 125 mmHg Diastolic Blood Pressure 93 mmHg HI Blood Pressure Location Left arm Mean Arterial Pressure, Cuff 104 mmHg SpO2 100 % 10/09/2023 17:54 EDT Temperature Axillary 36.2 DegC Heart Rate Monitored 90 bpm Respiratory Rate Monitored 22 br/min Systolic Blood Pressure 134 mmHg Diastolic Blood Pressure 104 mmHg HI Blood Pressure Location Left arm Mean Arterial Pressure, Cuff 114 mmHg SpO2 90 % Pain Assessment: Controlled. General: Awake, Alert, Appropriate. Respiratory: Adequate air exchange. Cardiovascular: Stable, Normal peripheral perfusion. Neurological: Normal sensory function, Normal motor function. Assessment Anesthetic outcome No anesthetic complications noted. Adequate pain relief. able to void without difficulty, able to ambulate with assist, tolerating PO intake, no N/V. Review / Management Condition: Stable. Plan Transfer/Discharge: Transfer/Discharge Discharge when meets criteria ( From PACU to floor ). Normal [facility] Comment on above: Result Comment: Elec tronically Signed By: Gary Álvarez Jr, DO\.br\Date and Time Signed: 10/11/23 16:52 EDT Progress Note-Physician Patient: CATHERINE ADAMSON Age: 63 years Sex: Female : 1960 Associated Diagnoses: None Author: Chana Lemons DO Postoperative Information Right hip/wrist POV #2 Review of Systems Denies fever or chills. Denies CP or SOB. Pain is controlled. No new complaints. Health Status Allergies: Allergic Reactions (All) No Known Allergies Physical Examination Musculoskeletal Mild hip swelling. Clean dry intact dressing. Supple calves. NVM intact distally. Mechanical DVT pumps present. Abduction pillow in place.. Review / Management Results review: Lab results 10/11/2023 5:05 EDT WBC 9.9 E9/L RBC 2.7 E12/L LOW HGB 9.1 gm/dL LOW Hct 25.9 % LOW MCV 94.5 fL MCH 33.3 pg MCHC 35.2 gm/dL RDW 13.3 % Platelet 309.0 E9/L MPV 7.1 fL Neutro Auto 73.1 % Lymph Auto 13.0 % LOW Moody Auto 9.3 % Eos Auto 4.3 % Basophil Auto 0.3 % Neutro Absolute 7.3 E9/L Lymph Absolute 1.3 E9/L Moody Absolute 0.9 E9/L Eos Absolute 0.4 E9/L Basophil Absolute 0.0 E9/L Glucose Lvl 92 mg/dL BUN 31 mg/dL HI Creatinine 0.7 mg/dL eGFR 96 mL/min/1.73 m2 BUN/Creat Ratio 44 HI Sodium Lvl 129 mmol/L LOW Potassium Lvl 3.9 mmol/L Chloride 102 mmol/L CO2 22 mmol/L AGAP 9 mEq/L Calcium Lvl 7.8 mg/dL LOW Phosphorus 2.4 mg/dL Magnesium 1.6 mg/dL 10/10/2023 5:04 EDT WBC 13.9 E9/L HI RBC 3.5 E12/L LOW HGB 11.2 gm/dL LOW Hct 33.2 % LOW MCV 95.3 fL MCH 32.1 pg MCHC 33.7 gm/dL RDW 13.3 % Platelet 442.0 E9/L MPV 7.2 fL Neutro Auto 83.7 % HI Lymph Auto 7.2 % LOW Moody Auto 8.6 % Eos Auto 0.2 % Basophil Auto 0.3 % Neutro Absolute 11.7 E9/L HI Lymph Absolute 1.0 E9/L Moody Absolute 1.2 E9/L HI Eos Absolute 0.0 E9/L Basophil Absolute 0.0 E9/L Glucose Lvl 146 mg/dL BUN 35 mg/dL HI Creatinine 0.8 mg/dL eGFR 82 mL/min/1.73 m2 BUN/Creat Ratio 44 HI Sodium Lvl 130 mmol/L LOW Potassium Lvl 4.1 mmol/L Chloride 103 mmol/L CO2 21 mmol/L AGAP 10 mEq/L Calcium Lvl 8.1 mg/dL LOW Phosphorus 3.1 mg/dL Magnesium 1.7 mg/dL . Radiology results Impression and Plan Diagnosis S/P right hip IMN and right wrist CRPP POD #2 osteoporosis UTI Stable post surgical acute blood loss anemia CAD, HTN, tobacco/alcohol abuse. Orders Analgesics. Mechanical and pharmacological DVT prophylaxis. PT/OT cont with NWB right wrist 4 weeks/50% PWB rt leg 4 weeks. Alcohol/tobacco risk factors reviewed. Social service discharge planning, d/c when medically stable. F/U 2-3 weeks in office. Lovenox 30MG BID 10 days. Resume Plavix. . Normal [facility] Comment on above: Result Comment: Elec tronically Signed By: Chana Lemons DO\.maxx\Date and Time Signed: 10/11/23 07:11 EDT eGFRon 10-11-2023 eGFR 96 mL/min/1.73 m2 Normal >=59 [facility] Comment on above: Order Comment: Order added by Discern Expert. Performed By: #### 1 [id number] #### [facility] Laboratory [address] [place] [address] BMPon 10-10-2023 Anion gap [Moles/Vol] 10 mmol/L Normal 6-16 [facility] Comment on above: Performed By: #### 2 [id number] #### [facility] Laboratory [address] [place] [address] Calcium [Mass/Vol] 8.1 mg/dL Low 8.9-11.1 [facility] Comment on above: Performed By: #### 2 [id number] #### [facility] Laboratory [address] [place] [address] Chloride [Moles/Vol] 103 mmol/L Normal 101-111 [facility] Comment on above: Performed By: #### 2 [id number] #### [facility] Laboratory [address] [place] [address] CO2 [Moles/Vol] 21 mmol/L Normal 21-31 [facility] Comment on above: Performed By: #### 2 [id number] #### [facility] Laboratory [address] [place] [address] Creatinine [Mass/Vol] 0.8 mg/dL Normal 0.5-1.3 [facility] Comment on above: Performed By: #### 2 [id number] #### [facility] Laboratory [address] [place] [address] Glucose [Mass/Vol] 146 mg/dL Normal 55-199 [facility] Comment on above: Performed By: #### 2 [id number] #### [facility] Laboratory [address] [place] [address] Potassium [Moles/Vol] 4.1 mmol/L Normal 3.5-5.3 [facility] Comment on above: Performed By: #### 2 [id number] #### [facility] Laboratory [address] [place] [address] Sodium [Moles/Vol] 130 mmol/L Low 135-145 [facility] Comment on above: Performed By: #### 2 [id number] #### [facility] Laboratory [address] [place] [address] Urea nitrogen [Mass/Vol] 35 mg/dL High 5-21 [facility] Comment on above: Performed By: #### 2 [id number] #### [facility] Laboratory [address] [place] [address] Urea nitrogen/Creatinine [Mass ratio] 44 No Units High 10-20 [facility] Comment on above: Performed By: #### 2 [id number] #### [facility] Laboratory [address] [place] [address] C Urineon 10-10-2023 Bacteria identified Cx Nom (U) Microbiology PROCEDURE: Urine Culture [R1] SOURCE: U Cath BODY SITE: COLLECTED DATE/TIME: 10/08/2023 14:00 EDT RECEIVED DATE/TIME: 10/08/2023 15:42 EDT START DATE/TIME: 10/08/2023 15:42 EDT FREE TEXT SOURCE: tawanna Anderson DO, Rigo Anderson DO, Rigo FINAL REPORTS Final Report [] Verified Date/Time: 10/10/2023 11:50 EDT >100,000 cfu/ml Citrobacter farmeri SUSCEPTIBILITY RESULTS LEGEND: S=Susceptible, N/R=Not Reported, Blank=Data not available, or drug not advisable or tested, I=Intermediate, ESBL=Extended spectrum beta-lactamase, R=Resistant, TFG=Thymidine-dependent strain, SHARATH=Beta-lactamase positive, YUNI=mcg/m;(mg/L), S*=Predicted susceptible interp, R*=Predicted resistant interp Citfar Antibiotic YUNI Dilutn YUNI Interp Amikacin <=16 S Ampicillin >16 R Ampicillin/ 16/8 I Sulbactam Aztreonam <=4 S Cefazolin 16 I Cefepime <=2 S Cefoxitin <=8 S Ceftazidime <=1 S Ceftriaxone <=1 S Ciprofloxacin <=1 S Ertapenem <=0.5 S Gentamicin <=4 S Levofloxacin <=2 S Meropenem <=1 S Nitrofurantoin <=32 S Piperacillin/ <=16 S Tazobactam Tetracycline <=4 S Tigecycline <=2 S Tobramycin <=4 S Trimethoprim/ >2/38 R Sulfa Performing Locations R1: This test was performed at: [facility], [address] [place] [address], [id number]- [facility], [facility] Comment on above: Performed By: #### 2 [id number] #### [facility] Laboratory [address] [place] [address] CBC w/ Auto Diffon 4 Basophils/100 WBC (Bld) 0.3 % Normal 0.0-2.0 [facility] Comment on above: Performed By: #### 2 [id number] #### [facility] Laboratory [address] [place] [address] Basophils/Leukocyte s Auto (Bld) [Pure # fraction] 0.0 E9/L Normal 0.0-0.2 [facility] Comment on above: Performed By: #### 2 [id number] #### [facility] Laboratory [address] [place] [address] Eosinophils (Bld) [#/Vol] 0.0 E9/L Normal 0.0-0.5 [facility] Comment on above: Performed By: #### 2 [id number] #### [facility] Laboratory [address] [place] [address] Eosinophils/100 WBC (Bld) 0.2 % Normal 0.0-8.0 [facility] Comment on above: Performed By: #### 2 [id number] #### [facility] Laboratory [address] [place] [address] Erythrocyte distribution width (RBC) [Ratio] 13.3 % Normal 10.9-14.2 [facility] Comment on above: Performed By: #### 2 [id number] #### [facility] Laboratory [address] [place] [address] Hematocrit (Bld) [Volume fraction] 33.2 % Low 34.0-46.0 [facility] Comment on above: Performed By: #### 2 [id number] #### [facility] Laboratory [address] [place] [address] Hemoglobin (Bld) [Mass/Vol] 11.2 g/dL Low 12.0-16.0 [facility] Comment on above: Performed By: #### 2 [id number] #### [facility] Laboratory [address] [place] [address] Lymphocytes (Bld) [#/Vol] 1.0 E9/L Normal 1.0-4.0 [facility] Comment on above: Performed By: #### 2 [id number] #### [facility] Laboratory [address] [place] [address] Lymphocytes/100 WBC (Bld) 7.2 % Low 14.0-50.0 [facility] Comment on above: Performed By: #### 2 [id number] #### [facility] Laboratory [address] [place] [address] MCH (RBC) [Entitic mass] 32.1 pg Normal 27.0-34.0 [facility] Comment on above: Performed By: #### 2 [id number] #### [facility] Laboratory [address] [place] [address] MCHC (RBC) [Mass/Vol] 33.7 g/dL Normal 31.4-36.0 [facility] Comment on above: Performed By: #### 2 [id number] #### [facility] Laboratory [address] [place] [address] MCV (RBC) [Entitic vol] 95.3 fL Normal 80.0-100.0 [facility] Comment on above: Performed By: #### 2 [id number] #### [facility] Laboratory [address] [place] [address] Monocytes (Bld) [#/Vol] 1.2 E9/L High 0.2-1.0 [facility] Comment on above: Performed By: #### 2 748383 #### [facility] Laboratory [address] [place] [address] Neutrophils (Bld) [#/Vol] 11.7 E9/L High 2.0-7.5 [facility] Comment on above: Performed By: #### 2 [id number] #### [facility] Laboratory [address] [place] [address] Neutrophils/100 WBC (Bld) 83.7 % High 36.0-75.0 [facility] Comment on above: Performed By: #### 2 [id number] #### [facility] Laboratory [address] [place] [address] Platelet 442.0 E9/L Normal 150.0-500. 0 [facility] Comment on above: Performed By: #### 2 [id number] #### [facility] Laboratory [address] [place] [address] Platelet mean volume (Bld) [Entitic vol] 7.2 fL Normal 6.4-10.8 [facility] Comment on above: Performed By: #### 2 [id number] #### [facility] Laboratory [address] [place] [address] RBC (Bld) [#/Vol] 3.5 E12/L Low 4.3-5.9 [facility] Comment on above: Performed By: #### 2 [id number] #### [facility] Laboratory [address] [place] [address] WBC corrected for nucl RBC Auto (Bld) [#/Vol] 13.9 E9/L High 4.0-11.0 [facility] Comment on above: Performed By: #### 2 [id number] #### [facility] Laboratory [address] [place] [address] CHEMISTRYOrdered By: SYSTEM SYSTEM on 10-10-2023 Anion gap [Moles/Vol] 10 mmol/L Normal 6 - 16 mEq/L Remisol Chem Calcium [Mass/Vol] 8.1 mg/dL Low 8.9 - 11. 1 mg/dL Remisol Chem Chloride [Moles/Vol] 103 mmol/L Normal 101 - 111 mmol/L Remisol Chem CO2 [Moles/Vol] 21 mmol/L Normal 21 - 31 mmol/L Remisol Chem Creatinine [Mass/Vol] 0.8 mg/dL Normal 0.5 - 1.3 mg/dL Remisol Chem eGFR 82 mL/min/1.73 m2 Normal >=59mL/min /1.73 m2 Remisol Chem Glucose [Mass/Vol] 146 mg/dL Normal 55 - 199 mg/dL Remisol Chem Magnesium [Mass/Vol] 1.7 mg/dL Normal 1.3 - 2.4 mg/dL Remisol Chem Phosphate [Mass/Vol] 3.1 mg/dL Normal 1.9 - 4.6 mg/dL Remisol Chem Potassium [Moles/Vol] 4.1 mmol/L Normal 3.5 - 5.3 mmol/L Remisol Chem Sodium [Moles/Vol] 130 mmol/L Low 135 - 145 mmol/L Remisol Chem Urea nitrogen [Mass/Vol] 35 mg/dL High 5 - 21 mg/dL Remisol Chem Urea nitrogen/Creatinine [Mass ratio] 44 mg/mg High 10 - 20 Remisol Chem Coding Queryon 10-10-2023 Coding Query - From: Margot Bobby RN To: Aubrey Swift PA-C; Sent: 10/10/2023 12:42:07 EDT ! Subject: Coding Query Due Date/Time: 10/11/2023 12:41:00 EDT Caller Name: CATHERINE ADAMSON; Caller Number: H Documentation per a underwriting consultant in the medical record indicates this patient has been diagnosed as having: pathologic osteoporotic fractures The following is also documented in the medical record: 10/08 Dr Lemons: ASSESSMENT: 1. Status post subacute fall compounded by alcohol abuse with osteoporotic pathologic comminuted right distal radius fracture with impaction with associated ulnar styloid component. 2. Osteoporotic-compounding right three-part intertrochanteric fracture with displacement and varus angulation. Based on your medical judgment of the documented diagnoses by the underwriting consultant, do you agree with the diagnosis? [___]Yes, I agree with the diagnosis documented by the underwriting consultant. [___]No, I do not agree with the diagnosis documented by the underwriting consultant. Reason: [___]Other: In responding to this request, please exercise your independent professional judgement. The fact that a question is asked does not imply that any particular answer is desired or expected. Thank you![email or web address] [phone] From: Aubrey Swift PA-C To: Margot Bobby RN; Sent: 10/10/2023 16:37:13 EDT Subject: RE: Coding Query Caller Name: CATHERINE ADAMSON; Caller Number: H I agree with diagnosis. Aubrey Mcguire [facility] HEMATOLOGYOrdered By: SYSTEM SYSTEM on 10-10-2023 Basophils/100 WBC (Bld) 0.3 % Normal 0.0 - 2.0 % Remisol Heme Basophils/Leukocyte s Auto (Bld) [Pure # fraction] 0.0 E9/L Normal 0.0 - 0.2 E9/L Remisol Heme Eosinophils (Bld) [#/Vol] 0.0 E9/L Normal 0.0 - 0.5 E9/L Remisol Heme Eosinophils/100 WBC (Bld) 0.2 % Normal 0.0 - 8.0 % Remisol Heme Erythrocyte distribution width (RBC) [Ratio] 13.3 % Normal 10.9 - 14.2 % Remisol Heme Hematocrit (Bld) [Volume fraction] 33.2 % Low 34.0 - 46.0 % Remisol Heme Hemoglobin (Bld) [Mass/Vol] 11.2 g/dL Low 12.0 - 16.0 gm/dL Remisol Heme Lymphocytes (Bld) [#/Vol] 1.0 E9/L Normal 1.0 - 4.0 E9/L Remisol Heme Lymphocytes/100 WBC (Bld) 7.2 % Low 14.0 - 50.0 % Remisol Heme MCH (RBC) [Entitic mass] 32.1 pg Normal 27.0 - 34.0 pg Remisol Heme MCHC (RBC) [Mass/Vol] 33.7 g/dL Normal 31.4 - 36.0 gm/dL Remisol Heme MCV (RBC) [Entitic vol] 95.3 fL Normal 80.0 - 100.0 fL Remisol Heme Monocytes (Bld) [#/Vol] 1.2 E9/L High 0.2 - 1.0 E9/L Remisol Heme Monocytes/100 WBC (Bld) 8.6 % Normal 4.0 - 14.0 % Remisol Heme Neutrophils (Bld) [#/Vol] 11.7 E9/L High 2.0 - 7.5 E9/L Remisol Heme Neutrophils/100 WBC (Bld) 83.7 % High 36.0 - 75.0 % Remisol Heme Platelet 442.0 E9/L Normal 150.0 - 500.0 E9/L Remisol Heme Platelet mean volume (Bld) [Entitic vol] 7.2 fL Normal 6.4 - 10.8 fL Remisol Heme RBC (Bld) [#/Vol] 3.5 E12/L Low 4.3 - 5.9 E12/L Remisol Heme WBC corrected for nucl RBC Auto (Bld) [#/Vol] 13.9 E9/L High 4.0 - 11.0 E9/L Remisol Heme Insurance Correspondence Off ice10-10-2023 Insurance Correspondence Office [id number] Normal [facility] Interdisciplinary Note - Gregory e Manageron 10-10-2023 Interdisciplinary Note - Medical Anthropology Director CRM spoke with patient in room. Patient is alert and oriented and participates in discharge planning. No family in room. Patient white board updated, and CRM contact information provided. Discussed Dr Cordova will see patient today.. Patient had surgery yesterday to repair hip and wrist Fx. Patient will need SNF and [facility] has accepted and will need a precert. Patient denies other needs or questions. Will need w/c van or EMS to transport at [place]. Reviewed Medicare rights, she denies any questions. Normal [facility] Comment on above: Result Comment: Elec tronically Signed By: Jose E DICKINSON, Luanne\.br\Date and Time Signed: 10/10/23 12:18 EDT Interdisciplinary Note - Rickie n 10-10-2023 Interdisciplinary Note - OT OT AM-PAC six clicks score: =SNF. Main barriers towards Pt's safe and functional performance are pain, generalized weakness, and activity tolerance. Pt requires max A x2 to complete ADL functional transfers including sit Normal [facility] IntraOperative Documentson 0 10-10-2023 IntraOperative Documents [id number] Normal [facility] Magnesiumon 10-10-2023 Magnesium [Mass/Vol] 1.7 mg/dL Normal 1.3-2.4 [facility] Comment on above: Performed By: #### 2 [id number] #### [facility] Laboratory [address] [place] [address] Main OR Intraoperative Recor don 10-10-2023 Main OR Intraoperative Record IntraOp Document Type FT Summary Primary Physician: Chana Lemons DO Finalized Date/Time: 10/10/23 09:43:20 Pt. Name: CATHERINE ADAMSON/Sex: 1960 Female Med Rec #: [id number] Physician: Art GARCIA, Regi Alvarez Financial #: [id number] Pt. Type: I Room/Bed: S320/01 Admit/Disch: 10/08/23 11:57:18 - Institution: Case Times FT Entry 1 Patient Times In Room 10/09/23 16:28:00 Out Room 10/09/23 17:52:00 Procedure Times Start 10/09/23 16:57:00 Stop 10/09/23 17:45:00 Anesthesia Times Start 10/09/23 16:28:00 Stop 10/09/23 17:52:00 Last Modified By: Ashley Zhang 10/09/23 17:57:19 General Comments: HIP PROCEDURE STARTED AT 1717. AFTER WRIST PROCEDURE WE TEARED DOWN DRAPES, PREPPED THE HIP, AND REDRAPED.ANU CHAVEZ. 10/10/23 Chart opened for charge review per Linn Evangelista RN. [place] Case Attendance FT Entry 1 Entry 2 Entry 3 Case Attendee Nuha BETHEA, Chana Álvarez Jr, DO, Ashley Galan Role Performed Surgeon - Primary Anesthesiologist of Lip And Gate Builder - Primary Record Time In 10/09/23 16:28:00 10/09/23 16:28:00 10/09/23 16:28:00 Time Out 10/09/23 17:52:00 10/09/23 17:52:00 10/09/23 17:52:00 Procedure HIP FRACTURE HIP FRACTURE HIP FRACTURE ORIF(Right), WRIST ORIF(Right), WRIST ORIF(Right), WRIST FRACTURE CRPP(Right) FRACTURE CRPP(Right) FRACTURE CRPP(Right) Comments Last Modified By: Ashley Zhang Kelsie E Burgderfer, Kelsie E 10/09/23 18:01:22 10/09/23 18:01:22 10/09/23 18:01:22 Entry 4 Entry 5 Entry 6 Case Attendee Zaira BAUMAN, Nery Ng, Pati Singer Role Performed Scrub - Primary STORE RECEIVING SPECIALIST Him Director Time In 10/09/23 16:28:00 10/09/23 16:28:00 10/09/23 16:28:00 Time Out 10/09/23 17:52:00 10/09/23 17:52:00 10/09/23 17:52:00 Procedure HIP FRACTURE HIP FRACTURE HIP FRACTURE ORIF(Right), WRIST ORIF(Right), WRIST ORIF(Right), WRIST FRACTURE CRPP(Right) FRACTURE CRPP(Right) FRACTURE CRPP(Right) Comments Last Modified By: Ashley Zhang Kelsie E Burgderfer, Kelsie E 10/09/23 18:01:22 10/09/23 18:01:22 10/09/23 18:01:22 Entry 7 Case Attendee Ryan Almaraz Ii Role Performed Staff - Other Time In 10/09/23 16:28:00 Time Out 10/09/23 16:54:00 Procedure HIP FRACTURE ORIF(Right), WRIST FRACTURE CRPP(Right) Comments ASSISTING NEEDED Last Modified By: Ashley Zhang 10/09/23 18:01:22 General Comments: PADDY GERBER AND ARETHA MURDOCK, ARTHJOSHUA IN ATTENDANCE.ANU CHAVEZ. Perioperative Protocols FT Pre-Care Text: Implements protective measures prior to operative or invasive procedure, confirms identity before the operative or invasive procedure, verifies operative procedure, surgical site, and laterality Entry 1 Procedure(s) HIP FRACTURE Patient Identity Birthday, ID Band ORIF(Right), WRIST Verified (select at Check, Patient FRACTURE CRPP(Right) least 2): Participation Consents / H and P Anesthesia Consent, Operative Site Present Verified HandP, Surgery/Procedure Marking Verified Consent, Transfusion Consent Surgical Site Yes Laterality Verified Yes Verified Procedure Verified Yes Correct Patient Yes Position Verified Availability Equipment, Implant, Prep Dry Yes Verified (If Medication Applicable) PreOp Antibiotic Yes Time Out Chana Lemons DO, Given Participants Henri Guevara DO, Gary Beard, Ashley Zhang, Zaira BAUMAN, Nery Beard, Ryland Ng Owsley, Chelsea R Time Out Complete 10/09/23 16:55:00 Outcomes Met? Yes Last Modified By: Ashley Zhang 10/09/23 17:25:02 Post-Care Text: The patient is free from signs and symptoms of injury caused by extraneous objects Allergy Information FT Pre-Care Text: Verifies allergies Entry 1 Allergies Reviewed? Yes Allergies Reviewed Self/Patient With Outcomes Met? Yes Last Modified By: Ashley Zhang 10/09/23 16:05:55 Post-Care Text: The patient received appropriate medication(s) safely administered during the perioperative period Surgical Procedures FT Entry 1 Entry 2 Procedure Description Procedure HIP FRACTURE ORIF WRIST FRACTURE CRPP Modifiers Right Right Surgeon Description RIGHT WRIST CRPP AND RIGHT WRIST CRPP AND RIGHT HIP RIGHT HIP INTRAMEDULLARY NAILING INTRAMEDULLARY NAILING Primary Procedure Yes No Primary Surgeon Chana Lemons DO, DO, Michael T Start 10/09/23 16:57:00 10/09/23 16:57:00 Stop 10/09/23 17:45:00 10/09/23 17:45:00 Anesthesia Type General General Surgical Service Orthopedics Orthopedics Wound Class 1 - Clean 1 - Clean Last Modified By: Ashley Zhang Kelsie E 10/09/23 18:01:21 10/09/23 18:01:21 General Case Data FT Pre-Care Text: Classifies surgical wound, implements aseptic technique, initiates traffic control Entry 1 Case Information OR OR 7 FT Case Level Level 6 Wound Class 1 - Clean Specialty Orthopedics ASA Class 4 Preop Diagnosis ACUTE FRA (more content not included)... Normal [facility] Operative Reporton Operative Report SURGERY DATE: 2023 PREOPERATIVE DIAGNOSES: 1. Right comminuted impacted distal radius fracture compounded by osteoporotic pathologic component with a stable ulnar styloid base 2. Right three-part displaced angulated pathologic osteoporotic intertrochanteric fracture with displacement POSTOPERATIVE DIAGNOSES: 1. Right comminuted impacted distal radius fracture compounded by osteoporotic pathologic component with a stable ulnar styloid base 2. Right three-part displaced angulated pathologic osteoporotic intertrochanteric fracture with displacement OPERATION: 1. Right distal radius closed reduction and percutaneous pinning, volar splint application 2. Right hip intramedullary nail fixation under large fluoroscopic exam ANESTHESIA: General ANESTHESIOLOGIST: Gary Álvarez Jr., D.O. ESTIMATED BLOOD LOSS: 100 cc SPECIMEN: None IMPLANTS UTILIZED: 1. Quantity three 0.062 K-wires to the right wrist 2. Arthrex right short 125-degree 11 mm trochanteric nail, 100 mm lag screw, 38 mm distal locking screw HISTORY AND INDICATIONS: Catherine is a 63-year-old female who lives home alone, was found yesterday by her family members. They attempted to call her for a few days. It is unclear when she went down. She initially thought it was . She had no significant fulminant signs of rhabdomyolysis. She was seen by Dr. Anderson in the Emergency Room and referral was made. We discussed her osteoporotic fractures. We discussed the comorbidities of coronary artery disease, Plavix therapy, alcohol and tobacco abuse, osteoporosis, weakening, and pathologic component of bone thus contributing to potential poor healing, infection, prolonged stay, recurrent surgeries, malunion, nonunion, infection, blood clot, pulmonary embolism, myocardial infarction, arrhythmia, stroke, were all reviewed. Her x-ray shows an impacted distal radius fracture with dorsal angulation shortened approximately 3/4 . Ulnar styloid has a base fracture with essentially nondisplaced. The hip has a 95-degree angulated three-part pathologic osteoporotic fracture that is intertrochanteric in nature with displacement and unstable. There is osteoporosis noted in both areas. There are moderate degenerative changes of the hip itself. The pros, cons, risks, benefits, and reasonable expectations of above procedure were discussed, consent form signed and charted, sites markedly preoperatively, all questions answered preoperatively. She was admitted to the trauma team as well as consult with the hospitalist for medical management. Sites are both marked preoperatively. Ancef is provided 2 g preoperatively. She, of note, is on Rocephin for a contaminant-appearing urine with cultures pending. All questions were answered preoperatively with the patient and . Consent form signed and witnessed. Again, both sites are marked. PROCEDURE: Catherine was taken to the Operating Room and placed in supine position. She was placed on the fracture table. A padded Rao stand was utilized for the wrist with the hand/wrist dangled off with assistant real estate manager. Large fluoroscopy with coroner forensic technician was utilized. Once the arm was prepped and draped in sterile fashion, a time-out procedure was confirmed. Fracture was reduced out to length in normal volar tilt and positioning with radial inclination. She had significant osteoporosis and soft bone. 0.062 K-wires were introduced, two retrograde and one antegrade, reducing the fracture in acceptable position and alignment. Pins were cut. Jurgan balls were applied. Final pictures were taken of the wrist and saved to permanent record. Xeroform bulky soft dressing with 3 x 15 volar splint was provided in the neutral position. Tourniquet was not utilized. She was placed in a sling and appropriately padded. She was then positioned on the fracture table. The hip was reduced out to length restoring the neck-shaft angle. The hip and thigh were prepped and draped in sterile fashion at which point time-out was confirmed there. A 1 incision was made proximal to the greater trochanter. Entry awl and guidewire were introduced into the intramedullary canal and confirmed. Reaming started at a 10 up to a 13. Proximal reaming was performed. An 11 mm Arthrex short titanium nail was appropriately introduced and put in the appropriate position. The large stack was placed to the femoral head through a small 1 cm incision along the lateral cortex, and the guidewire was positioned in the inferior third of the femoral head on AP, mid femoral head on lateral view. Guide pin was positioned and reaming was performed and sizing, and the 100 mm lag screw was appropriately positioned within 1 cm of the subchondral cortex with decent purchase. She does have moderate osteoporotic component with reaming and placement of the vidya itself, and this was locked in neutral position. Attention was then directed to the small stack distally in the static screw slot through the jig. A small incision was made. This was drilled, measured, and plac (more content not included)... Normal [facility] Comment on above: Result Comment: Elec tronically Signed By: Chana Lemons DO T\.br\Date and Time Signed: 10/10/23 12:51 EDT Phosphoruson 10-10-2023 Phosphate [Mass/Vol] 3.1 mg/dL Normal 1.9-4.6 [facility] Comment on above: Performed By: #### 2 [id number] #### [facility] Laboratory [address] [place] [address] XR Hip 2-3 Views Righton XR Hip 2-3 Views Right Exam Date/Time: 10/09/2023 17:44 EDT Reason for Exam: Fracture Report XR Hip 2-3 Views Right : 10/09/2023 4:48 PM CLINICAL HISTORY: Fracture. Open reduction internal fixation COMPARISON: None available. Intraoperative fluoroscopy was provided for Dr. Lemons' procedure. Air kerma mGy: 14.3; fluoroscopy time: 60.6 seconds No diagnostic images were obtained. Please see Dr. Lemons' surgical notes for complete details. Ordering Provider: Chana Lemons FINAL REPORT Dictated: 10/10/2023 7:50 am Talon Rose DO Signed (Electronic Signature): 10/10/2023 7:50 am Signed by: Talon Rose DO Transcribed by: RICHARD Technologist: CONNIE Technical Comments Radiation Dose: rosy Haynes in mGy = 14.30 DAP = na Normal [facility] XR Wrist 2 Views Righton XR Wrist 2 Views Right Exam Date/Time: 10/09/2023 17:44 EDT Reason for Exam: Fracture Report XR Wrist 2 Views Right : 10/09/2023 4:48 PM CLINICAL HISTORY: Fracture. COMPARISON: None available. Intraoperative fluoroscopy was provided for Dr. Lemons' procedure. Air kerma mGy: 0.6; fluoroscopy time: 36.4 seconds No diagnostic images were obtained. Please see Dr. Lemons' surgical notes for complete details. Ordering Provider: Chana Lemons FINAL REPORT Dictated: 10/10/2023 7:51 am Talon Rose DO Signed (Electronic Signature): 10/10/2023 7:51 am Signed by: Talon Rose DO Transcribed by: RICHARD Technologist: CONNIE Technical Comments Radiation Dose: Kar in mGy = 0.60 DAP = na Normal [facility] eGFRon 10-10-2023 eGFR 82 mL/min/1.73 m2 Normal >=59 [facility] Comment on above: Order Comment: Order added by Discern Expert. Performed By: #### 1 [id number] #### [facility] Laboratory [address] [place] [address] BMPon 10-09-2023 Anion gap [Moles/Vol] 10 mmol/L Normal 6-16 [facility] Comment on above: Performed By: #### 2 [id number] #### [facility] Laboratory [address] [place] [address] Calcium [Mass/Vol] 8.3 mg/dL Low 8.9-11.1 [facility] Comment on above: Performed By: #### 2 [id number] #### [facility] Laboratory [address] [place] [address] Chloride [Moles/Vol] 105 mmol/L Normal 101-111 [facility] Comment on above: Performed By: #### 2 [id number] #### [facility] Laboratory [address] [place] [address] CO2 [Moles/Vol] 21 mmol/L Normal 21-31 [facility] Comment on above: Performed By: #### 2 [id number] #### [facility] Laboratory [address] [place] [address] Creatinine [Mass/Vol] 0.9 mg/dL Normal 0.5-1.3 [facility] Comment on above: Performed By: #### 2 [id number] #### [facility] Laboratory [address] [place] [address] Glucose [Mass/Vol] 96 mg/dL Normal 55-199 [facility] Comment on above: Performed By: #### 2 [id number] #### [facility] Laboratory [address] [place] [address] Potassium [Moles/Vol] 3.9 mmol/L Normal 3.5-5.3 [facility] Comment on above: Performed By: #### 2 [id number] #### [facility] Laboratory [address] [place] [address] Sodium [Moles/Vol] 132 mmol/L Low 135-145 [facility] Comment on above: Performed By: #### 2 [id number] #### [facility] Laboratory [address] [place] [address] Urea nitrogen [Mass/Vol] 33 mg/dL High 5-21 [facility] Comment on above: Performed By: #### 2 [id number] #### [facility] Laboratory [address] [place] [address] Urea nitrogen/Creatinine [Mass ratio] 37 No Units High 10-20 [facility] Comment on above: Performed By: #### 2 [id number] #### [facility] Laboratory [address] [place] [address] CBC w/ Auto Diffon 4 Basophils/100 WBC (Bld) 0.5 % Normal 0.0-2.0 [facility] Comment on above: Performed By: #### 2 [id number] #### [facility] Laboratory [address] [place] [address] Basophils/Leukocyte s Auto (Bld) [Pure # fraction] 0.1 E9/L Normal 0.0-0.2 [facility] Comment on above: Performed By: #### 2 [id number] #### [facility] Laboratory [address] [place] [address] Eosinophils (Bld) [#/Vol] 0.1 E9/L Normal 0.0-0.5 [facility] Comment on above: Performed By: #### 2 [id number] #### [facility] Laboratory [address] [place] [address] Eosinophils/100 WBC (Bld) 0.9 % Normal 0.0-8.0 [facility] Comment on above: Performed By: #### 2 [id number] #### [facility] Laboratory [address] [place] [address] Erythrocyte distribution width (RBC) [Ratio] 13.1 % Normal 10.9-14.2 [facility] Comment on above: Performed By: #### 2 [id number] #### [facility] Laboratory [address] [place] [address] Hematocrit (Bld) [Volume fraction] 31.9 % Low 34.0-46.0 [facility] Comment on above: Performed By: #### 2 [id number] #### [facility] Laboratory [address] [place] [address] Hemoglobin (Bld) [Mass/Vol] 10.8 g/dL Low 12.0-16.0 [facility] Comment on above: Performed By: #### 2 [id number] #### [facility] Laboratory [address] [place] [address] Lymphocytes (Bld) [#/Vol] 1.1 E9/L Normal 1.0-4.0 [facility] Comment on above: Performed By: #### 2 [id number] #### [facility] Laboratory [address] [place] [address] Lymphocytes/100 WBC (Bld) 10.5 % Low 14.0-50.0 [facility] Comment on above: Performed By: #### 2 [id number] #### [facility] Laboratory [address] [place] [address] MCH (RBC) [Entitic mass] 32.1 pg Normal 27.0-34.0 [facility] Comment on above: Performed By: #### 2 [id number] #### [facility] Laboratory [address] [place] [address] MCHC (RBC) [Mass/Vol] 33.8 g/dL Normal 31.4-36.0 [facility] Comment on above: Performed By: #### 2 [id number] #### [facility] Laboratory [address] [place] [address] MCV (RBC) [Entitic vol] 94.9 fL Normal 80.0-100.0 [facility] Comment on above: Performed By: #### 2 [id number] #### [facility] [address] [place] [address] Monocytes (Bld) [#/Vol] 1.0 E9/L Normal 0.2-1.0 [facility] Comment on above: Performed By: #### 2 [id number] #### [facility] Laboratory [address] [place] [address] Neutrophils (Bld) [#/Vol] 8.5 E9/L High 2.0-7.5 [facility] Comment on above: Performed By: #### 2 [id number] #### [facility] Laboratory [address] [place] [address] Neutrophils/100 WBC (Bld) 78.8 % High 36.0-75.0 [facility] Comment on above: Performed By: #### 2 [id number] #### [facility] Laboratory [address] [place] [address] Platelet mean volume (Bld) [Entitic vol] 7.1 fL Normal 6.4-10.8 [facility] Comment on above: Performed By: #### 2 [id number] #### [facility] Laboratory [address] [place] [address] Platelets (Bld) [#/Vol] 408.0 E9/L Normal 150.0-500. 0 [facility] Comment on above: Performed By: #### 2 [id number] #### [facility] Laboratory [address] [place] [address] RBC (Bld) [#/Vol] 3.4 E12/L Low 4.3-5.9 [facility] Comment on above: Performed By: #### 2 [id number] #### [facility] Laboratory [address] [place] [address] WBC corrected for nucl RBC Auto (Bld) [#/Vol] 10.8 E9/L Normal 4.0-11.0 [facility] Comment on above: Performed By: #### 2 [id number] #### [facility] Laboratory [address] [place] [address] CHEMISTRYOrdered By: SYSTEM SYSTEM on 10-09-2023 Ethanol Lvl mg/dL Normal <=11mg/dL Remisol Chem Consent for Procedure/Surger yon 10-09-2023 Consent for Procedure/Surgery [id number] Normal [facility] EMS Documentationon 10-09-19 24 EMS Documentation Please click on link to see report Normal [facility] Comment on above: Result Comment: Miss ing Attachment - total size limit for all attachments exceeded [email or web address] Can be viewed in source system Ethanolon 10-09-2023 Ethanol Lvl <10 Normal <=11 [facility] Comment on above: Performed By: #### 2 [id number] #### [facility] Laboratory [address] [place] [address] Inpatient Clinical Summaryon 10-09-2023 Inpatient Clinical Summary [address] [address] Clinical Summary Person Information: Name: CATHERINE ADAMSON Age: 63 Years : 1960 Sex: Female PCP: XIMENA ASTUDILLO MD Marital Status: Race: White Ethnicity: Non- or Language: Greek Visit Id: Visit Reason: Leg pain-swelling; Hip pain-swelling; Dizziness; Fall; FALL Speciality: Acuity: Enc Type: Inpatient Med Service: Medical Arrival: 10/08/2023 11:57:18 Discharge: Dispo Type: Admitted as IP to this Hosp Address: Marybeth LOPEZ [address] [id number] Provider Notes: Diagnosis: Alcohol abuse; Colles' fracture; Hip fracture, right; Pancreatitis, acute; Rhabdomyolysis Problems Active Smoker Ischemic hepatitis Screen for colon cancer LFT elevation Aortic valve stenosis Osteoarthritis Anemia Hyperlipidemia Pleural effusion Elevated ferritin level COPD (chronic obstructive pulmonary disease) Hyponatremia Essential hypertension COPD (chronic obstructive pulmonary disease) ASHD (arteriosclerotic heart disease) Smoking Status: Current Every Day Smoker Functional Status: Sensory Deficits: History of Falls: Immediately prior to hospitalization Mobility Assistance Prior to Admission: Independent ADLs: Minimal assistance Current Level of Assistance for Self-Care/Mobility: Cognitive Status: Oriented x 3 Allergies No Known Allergies Measurements: Height: 170.18 cm Weight: 72.2 kg Blood Pressure: 118 mmHg / 72 mmHg BMI: 24.93 kg/m2 Procedures No Procedures Documented Immunizations No Immunizations Documented This Visit Final Med List: albuterol (Ventolin HFA 90 mcg/inh Aerosol) Inhalation every 6 hours. apremilast 30 Milligram By Mouth every day. aspirin (aspirin 81 mg Oral EC Tab) By Mouth every day. budesonide-formoterol (Symbicort 80/4.5 inhalation aerosol with adapter) 2 Puffs Inhalation 2 times a day. clopidogrel (clopidogrel 75 mg Tab) By Mouth every day. metoprolol (metoprolol 25 mg ER Tab) By Mouth every day. NIFEdipine (NIFEdipine 30 mg ER Tab) By Mouth every day. nitroglycerin potassium chloride (Potassium Chloride (Yjs-Hbui-Jkg 10)) By Mouth 2 times a day. sodium chloride (Sodium Chloride) Care Team Members: Attending Physician: Aubrey Swift PA-C Consulting Physician: Referring Physician: Follow up: With: Address: When: Chana Lemons [address] [place], [place] [id number] Business (1) Comments: Call for followup appointment 4 weeks. With: Address: When: XIMENA ASTUDILLO [address] [place], [place] [id number] Business (1) Patient Education Information: Normal [facility] Inpatient Patient Summaryon 10-09-2023 Inpatient Patient Summary [address] [address] [facility] Clinical Discharge Instructions PERSON INFORMATION Name: CATHERINE ADAMSON PHYSICIANS Admitting Physician: Art GARCIA, Regi Alvarez Attending Physician: Regi Cordova MD PCP: XIMENA ASTUDILLO MD Discharge Diagnosis: Alcohol abuse; Colles' fracture; Hip fracture, right; Pancreatitis, acute; Rhabdomyolysis Comment: PATIENT EDUCATION INFORMATION Instructions: Medication Leaflets: Follow up: With: Address: When: Chana Lemons [address] [place] [address] Business (1) Comments: Call for followup appointment 2-3 weeks for staple removal right hip and recheck right wrist and hip. With: Address: When: XIMENA BAUDILIO [address] [place] [id number] Business (1) MEDICATION LIST Medications to Continue with No Changes Other Medications albuterol (Ventolin HFA 90 mcg/inh Aerosol) Inhalation every 6 hours. apremilast 30 Milligram By Mouth every day. aspirin (aspirin 81 mg Oral EC Tab) By Mouth every day. budesonide-formoterol (Symbicort 80/4.5 inhalation aerosol with adapter) 2 Puffs Inhalation 2 times a day. clopidogrel (clopidogrel 75 mg Tab) By Mouth every day. metoprolol (metoprolol 25 mg ER Tab) By Mouth every day. NIFEdipine (NIFEdipine 30 mg ER Tab) By Mouth every day. nitroglycerin potassium chloride (Potassium Chloride (Dzi-Hdbz-Wuy 10)) By Mouth 2 times a day. sodium chloride (Sodium Chloride) No Longer Take the Following Medications hydrochlorothiazide-lisinopril (hydrochlorothiazide-lisinopri l 12.5 mg-20 mg Tab) By Mouth every day. magnesium sulfate/potass Cl/sodium sulf (Sutab oral tablet) Please follow instructions per packaging and physician's handout. Refills: 0., Ordered as indicated per Dr. Hernandez. tramadol (traMADOL 50 mg Tab) By Mouth every 6 hours. Comment: Normal [facility] Inpatient Patient Summary [place] [id number] Patient Discharge Instructions PERSON INFORMATION Name: CATHERINE ADAMSON Date of : 1960 Current Date: 10/09/2023 06:18:02 PHYSICIANS Admitting Physician: Aubrey Swift PA-C Primary Care Physician: XIMENA ASTUDILLO MD PCP Comment: Discharge Diagnosis: Alcohol abuse; Colles' fracture; Hip fracture, right; Pancreatitis, acute; Rhabdomyolysis Condition at Discharge: CATHERINE ADAMSON has been given the following list of follow-up instructions, prescriptions, and patient education materials: PATIENT FOLLOW-UP INFORMATION Diet: Discharge Activity: Arrange for a responsible adult supervision for 24 hours, Expect mild pain, Expect minimal amount of drainage and/or bleeding, Partial weight bearing, Do not lift more than 5 lbs Discharge Restrictions: No driving, Do not operate machinery or tools, Do not make important decisions for 24 hours, Do not drink alcoholic beverages for 24 hours Wound Care Instructions: Do not remove dressing, Remove dressing as instructed Remove Your Dressing In Days Call Your Doctor For: Persistent or heavy bleeding, Temperature above 101.5 degrees, Redness, swelling, or pus at operative site, Severe pain at the operative site, Persistent vomiting IF UNABLE TO CONTACT YOUR PHYSICIAN AND YOU FEEL IT IS AN EMERGENCY, GO TO THE NEAREST EMERGENCY ROOM OR CALL 911 Home Treatment: Devices/Equipment: None Special Services: Additional Instructions: Do not remove right wrist dressing. Mo weight bearing right wrist. 50% partial weight bearing right hip for 4 weeks until follow up appt. Primary Care Physician to provide the following pending test results: Follow up: With: Address: When: Chana Lemons [address] [place], [place] [id number] Business (1) Comments: Call for followup appointment 4 weeks. With: Address: When: XIMENA ASTUDILLO [address] [place] [address] Business (1) In the event that this physician does not participate in your insurance network, please consult with your insurance company to find a nearby participating provider. Comment: Monica SNOW CATHERINE Beard, have received the attached patient education materials/instructions and have verbalized understanding: Patient Signature Date Clinican/Nurse Signature Date HERE ARE THE MEDICATION CHANGES THAT OCCURRED DURING YOUR HOSPITAL STAY Medications to Continue with No Changes Other Medications albuterol (Ventolin HFA 90 mcg/inh Aerosol) Inhalation every 6 hours. Last Dose: Next Dose: apremilast 30 Milligram By Mouth every day. Last Dose: Next Dose: aspirin (aspirin 81 mg Oral EC Tab) By Mouth every day. Last Dose: Next Dose: budesonide-formoterol (Symbicort 80/4.5 inhalation aerosol with adapter) 2 Puffs Inhalation 2 times a day. Last Dose: Next Dose: clopidogrel (clopidogrel 75 mg Tab) By Mouth every day. Last Dose: Next Dose: metoprolol (metoprolol 25 mg ER Tab) By Mouth every day. Last Dose: Next Dose: NIFEdipine (NIFEdipine 30 mg ER Tab) By Mouth every day. Last Dose: Next Dose: nitroglycerin Last Dose: Next Dose: potassium chloride (Potassium Chloride (Cju-Nzvq-Yly 10)) By Mouth 2 times a day. Last Dose: Next Dose: sodium chloride (Sodium Chloride) Last Dose: Next Dose: No Longer Take the Following Medications hydrochlorothiazide-lisinopril (hydrochlorothiazide-lisinopri l 12.5 mg-20 mg Tab) By Mouth every day. magnesium sulfate/potass Cl/sodium sulf (Sutab oral tablet) Please follow instructions per packaging and physician's handout. Refills: 0., Ordered as indicated per Dr. Hernandez. tramadol (traMADOL 50 mg Tab) By Mouth every 6 hours. Comment: MEDICATION LIST PROVIDED FOR YOU IS A LIST OF YOUR CURRENT MEDICATIONS. PLEASE CARRY THIS WITH YOU AT ALL TIMES. albuterol (Ventolin HFA 90 mcg/inh Aerosol) Inhalation every 6 hours. apremilast 30 Milligram By Mouth every day. aspirin (aspirin 81 mg Oral EC Tab) By Mouth every day. budesonide-formoterol (Symbicort 80/4.5 inhalation aerosol with adapter) 2 Puffs Inhalation 2 times a day. clopidogrel (clopidogrel 75 mg Tab) By Mouth every day. metoprolol (metoprolol 25 mg ER Tab) By Mouth every day. NIFEdipine (NIFEdipine 30 mg ER Tab) By Mouth every day. nitroglycerin potassium chloride (Potassium Chloride (Tse-Mdyt-Gdu 10)) By Mouth 2 maisha (more content not included)... Normal [facility] Insurance Correspondence Off 10-09-2023 Insurance Correspondence Office [id number]#[id number] [facility] Insurance Correspondence Office [id number]#[id number] [facility] Interdisciplinary Note - Gregory e Manageron 10-09-2023 Interdisciplinary Note - Medical Anthropology Director CRM spoke with patient, daughter and sisters in room. Patient is alert and oriented and participates in discharge planning. Patient white board updated, and CRM contact information provided. Discussed CRM read Dr Nuha mtz who saw patient earlier today and will have surgery later today to RT hip and wrist fx and repair. Discussed anticipated to need SNF at discharge. Patient verified PCP, insurance and DME. Patient is form home alone and family will transport at dc. Discussed local SNF choices and she prefers [facility] and TCU followed by [facility]. Will need a precert. Anticipated dc in 2-3 days. Patient does admit to daily RTOH use and social insurance analyst will see today. Reviewed Medicare rights, she denies any questions and had sister sign form for her. Gave patient copy of signed form. Will make referral to TCU pending PT/OT janessa. 1255- CRM updated patient and family TCU is out of network and declined and referral has been sent to [facility]. Discussed [facility] was concerned about cost of medication apremilast, patient is willing to bring and use her home supply at SNF. [facility] Comment on above: Result Comment: Elec tronically Signed By: Jose E DICKINSON, Luanne\.br\Date and Time Signed: 10/09/23 14:07 EDT Interdisciplinary Note - Soc ial Workeron 10-09-2023 Interdisciplinary Note - Couturiere This SW responded to a consult on [address] regarding Advance Directives. SW assisted with explanation of the documentation. Patient's family recently left the room to grab food and wants to go over the documentation with them prior to completing. SW provided the patient with a copy of the documentation to review with family members. SW asked that the patient reach out to nursing to contact SW if she decided to want to complete the AD documentation. Patient denied any further needs, concerns or resources at this time. SW will remain available as needed. [facility] Interdisciplinary Note - Couturiere This SW responded to a consult on [address] [place] [address] regarding ETOH / Substance abuse. Patient stated that her last alcoholic beverage was on afternoon. Patient alcohol of choice is beer and she typically consumes 6-8 daily. Patient has never attempted to quit in the past and stated that she doesn't plan to quit now. Patient stated that she enjoys drinking and isn't hurting anyone besides herself. Patient stated that she is 63 years old and plans on going out with a bang. Patient was positive for marijuana at admission also. Patient stated that she smokes marijuana once in a blue purcell, patient's friend was over for the holiday, therefore she took a hit of the substance. Patient denied any further substance abuse. Patient stated that she has a good support system, which consists of both family members and friends. Patient requested more information on emergency response systems, which SW provided to the patient. Patient denied any further needs, concerns or resources at this time. SW will remain available as needed. Normal [facility] Magnesiumon 10-09-2023 Magnesium [Mass/Vol] 1.7 mg/dL Normal 1.3-2.4 [facility] Comment on above: Performed By: #### 2 [id number] #### [facility] Laboratory [address] [place] [address] Main OR Intraoperative Recor don 10-09-2023 Main OR Intraoperative Record IntraOp Document Type FT Summary Primary Physician: Chana Lemons DO Finalized Date/Time: 10/09/23 18:09:03 Pt. Name: CATHERINE ADAMSON/Sex: 1960 Female Med Rec #: [id number] Physician: Art GARCIA, Regi Alvarez Financial #: [id number] Pt. Type: I Room/Bed: Admit/Disch: 10/08/23 11:57:18 - Institution: Case Times FT Entry 1 Patient Times In Room 10/09/23 16:28:00 Out Room 10/09/23 17:52:00 Procedure Times Start 10/09/23 16:57:00 Stop 10/09/23 17:45:00 Anesthesia Times Start 10/09/23 16:28:00 Stop 10/09/23 17:52:00 Last Modified By: Ashley Zhang 10/09/23 17:57:19 General Comments: HIP PROCEDURE STARTED AT 1717. AFTER WRIST PROCEDURE WE TEARED DOWN DRAPES, PREPPED THE HIP, AND REDRAPED.ANU CHAVEZ. Case Attendance FT Entry 1 Entry 2 Entry 3 Case Attendee Nuha BETHEA, Chana Álvarez Jr, DO, Ashley Galan Role Performed Surgeon - Primary Anesthesiologist of Lip And Gate Builder - Primary Record Time In 10/09/23 16:28:00 10/09/23 16:28:00 10/09/23 16:28:00 Time Out 10/09/23 17:52:00 10/09/23 17:52:00 10/09/23 17:52:00 Procedure HIP FRACTURE HIP FRACTURE HIP FRACTURE ORIF(Right), WRIST ORIF(Right), WRIST ORIF(Right), WRIST FRACTURE CRPP(Right) FRACTURE CRPP(Right) FRACTURE CRPP(Right) Comments Last Modified By: Ashley Zhang Kelsie E Burgderfer, Kelsie E 10/09/23 18:01:22 10/09/23 18:01:22 10/09/23 18:01:22 Entry 4 Entry 5 Entry 6 Case Attendee Zaira BAUMAN, Nery Ng, Pati Singer Role Performed Scrub - Primary STORE RECEIVING SPECIALIST Him Director Time In 10/09/23 16:28:00 10/09/23 16:28:00 10/09/23 16:28:00 Time Out 10/09/23 17:52:00 10/09/23 17:52:00 10/09/23 17:52:00 Procedure HIP FRACTURE HIP FRACTURE HIP FRACTURE ORIF(Right), WRIST ORIF(Right), WRIST ORIF(Right), WRIST FRACTURE CRPP(Right) FRACTURE CRPP(Right) FRACTURE CRPP(Right) Comments Last Modified By: Ashley Zhang Kelsie E Burgderfer, Kelsie E 10/09/23 18:01:22 10/09/23 18:01:22 10/09/23 18:01:22 Entry 7 Case Attendee Ryan Almaraz Ii Role Performed Staff - Other Time In 10/09/23 16:28:00 Time Out 10/09/23 16:54:00 Procedure HIP FRACTURE ORIF(Right), WRIST FRACTURE CRPP(Right) Comments ASSISTING NEEDED Last Modified By: Ashley Zhagn 10/09/23 18:01:22 General Comments: PADDY GERBER AND ARETHA MURDOCK, ARTHJOSHUA IN ATTENDANCE.ANU CHAVEZ. Perioperative Protocols FT Pre-Care Text: Implements protective measures prior to operative or invasive procedure, confirms identity before the operative or invasive procedure, verifies operative procedure, surgical site, and laterality Entry 1 Procedure(s) HIP FRACTURE Patient Identity Birthday, ID Band ORIF(Right), WRIST Verified (select at Check, Patient FRACTURE CRPP(Right) least 2): Participation Consents / H and P Anesthesia Consent, Operative Site Present Verified HandP, Surgery/Procedure Marking Verified Consent, Transfusion Consent Surgical Site Yes Laterality Verified Yes Verified Procedure Verified Yes Correct Patient Yes Position Verified Availability Equipment, Implant, Prep Dry Yes Verified (If Medication Applicable) PreOp Antibiotic Yes Time Out Chana Lemons DO, Given Participants [facility] , Gary Beard, Ashley Zhang, Zaira BAUMAN, Nery Beard, Ryland Ng Owsley, Chelsea R Time Out Complete 10/09/23 16:55:00 Outcomes Met? Yes Last Modified By: Ashley Zhang 10/09/23 17:25:02 Post-Care Text: The patient is free from signs and symptoms of injury caused by extraneous objects Allergy Information FT Pre-Care Text: Verifies allergies Entry 1 Allergies Reviewed? Yes Allergies Reviewed Self/Patient With Outcomes Met? Yes Last Modified By: Ashley Zhang 10/09/23 16:05:55 Post-Care Text: The patient received appropriate medication(s) safely administered during the perioperative period Surgical Procedures FT Entry 1 Entry 2 Procedure Description Procedure HIP FRACTURE ORIF WRIST FRACTURE CRPP Modifiers Right Right Surgeon Description RIGHT WRIST CRPP AND RIGHT WRIST CRPP AND RIGHT HIP RIGHT HIP INTRAMEDULLARY NAILING INTRAMEDULLARY NAILING Primary Procedure Yes No Primary Surgeon Chana Lemons DO, DO, Michael T Start 10/09/23 16:57:00 10/09/23 16:57:00 Stop 10/09/23 17:45:00 10/09/23 17:45:00 Anesthesia Type General General Surgical Service Orthopedics Orthopedics Wound Class 1 - Clean 1 - Clean Last Modified By: Ashley Zhang Kelsie E 10/09/23 18:01:21 10/09/23 18:01:21 General Case Data FT Pre-Care Text: Classifies surgical wound, implements aseptic technique, initiates traffic control Entry 1 Case Information OR OR 7 FT Case Level Level 6 Wound Class 1 - Clean Specialty Orthopedics ASA Class 4 Preop Diagnosis ACUTE FRACTURES OF THE Postop Same As Preop Yes DISTAL RADIUS AND UL (more content not included)... Normal [facility] Main OR PACU I Recordon 09-12 Main OR PACU I Record PACU Phase I Document Type FT Summary Primary Physician: Chana Lemons DO Finalized Date/Time: 10/09/23 19:01:13 Pt. Name: CATHERINE ADAMSON/Sex: 1960 Female Med Rec #: [id number] Physician: Art GARCIA, Regi Alvarez Financial #: [id number] Pt. Type: I Room/Bed: [place] [address] Admit/Disch: 10/08/23 11:57:18 - Institution: Case Times PACU I FT Pre-Care Text: Identifies barriers to communication and implements measures to provide psychological support Develops individualized plan of care, and ensures continuity of care Maintains patient's dignity and privacy, and maintains patient confidentiality Identifies and reports philosophical, cultural, and spiritual beliefs and values Identifies individual values and wishes concerning care Implements aseptic technique, and administers prescribed antibiotic therapy and immunizing agents as ordered Evaluates postoperative tissue perfusion Implements thermoregulation measures, and monitors body temperature Evaluates postoperative respiratory status Evaluates postoperative cardiac status Evaluates postoperative neurological status Assesses pain control, collaborated in initiating patient-controlled analgesia and implements alternative methods of pain control Verifies allergies, administers prescribed medications and solutions, evaluates response to medications Entry 1 In PACU I 10/09/23 17:54:00 Discharge from PACU 10/09/23 18:30:00 I Outcomes Met? Yes Last Modified By: Sara Son RN 10/09/23 19:00:57 Post-Care Text: The patient demonstrates knowledge of the expected response to the operative or invasive procedure The patient's care is consistent with the individualized perioperative plan of care The patient's right to privacy is maintained The patient's value system, lifestyle, ethnicity, and culture are considered, respected, and incorporated into the perioperative plan of care The patient participates in decisions affecting his or her perioperative plan of care The patient is free from signs and symptoms of infection The patient has wound/tissue perfusion consistent with or improved from baseline levels established preoperatively The patient is at or returning to normothermia at the conclusion of the immediate postoperative period The patient's respiratory function is consistent with or improved from baseline levels established preoperatively The patient's cardiovascular status is consistent with or improved from baseline levels established preoperatively The patient's cardiovascular status is consistent with or improved from baseline levels established preoperatively The patient demonstrates and/or reports adequate pain control throughout the perioperative period The patient received appropriate medication(s), safely administered during the perioperative period Acuity Level PACU I FT Entry 1 Start Time 10/09/23 17:54:00 Stop Time 10/09/23 18:30:00 Acuity Level Acuity Level I Last Modified By: Sara Son RN 10/09/23 19:01:09 Finalized By: Sara Son RN Document Signatures Signed By: Sara Son RN 10/09/23 19:01 [facility] Message from Medicareon 09-12 Message from Medicare [id number]#[id number] Normal [facility] Monitor Recordon 10-09-2023 Monitor Record [id number]#[id number] Normal [facility] Monitor Record [id number]#[id number] [facility] Operative Reporton Operative Report Patient: KRYSTLE ADAMSON Age: 63 years Sex: Female : 1960 Associated Diagnoses: None Author: Chana Lemons DO Health Status Allergies: Allergic Reactions (Selected) No Known Allergies Review / Management Results review: Lab results 10/09/2023 6:10 EDT WBC 10.8 E9/L RBC 3.4 E12/L LOW HGB 10.8 gm/dL LOW Hct 31.9 % LOW MCV 94.9 fL MCH 32.1 pg MCHC 33.8 gm/dL RDW 13.1 % Platelet 408.0 E9/L MPV 7.1 fL Neutro Auto 78.8 % HI Lymph Auto 10.5 % LOW Moody Auto 9.3 % Eos Auto 0.9 % Basophil Auto 0.5 % Neutro Absolute 8.5 E9/L HI Lymph Absolute 1.1 E9/L Moody Absolute 1.0 E9/L Eos Absolute 0.1 E9/L Basophil Absolute 0.1 E9/L Glucose Lvl 96 mg/dL BUN 33 mg/dL HI Creatinine 0.9 mg/dL eGFR 71 mL/min/1.73 m2 BUN/Creat Ratio 37 HI Sodium Lvl 132 mmol/L LOW Potassium Lvl 3.9 mmol/L Chloride 105 mmol/L CO2 21 mmol/L AGAP 10 mEq/L Calcium Lvl 8.3 mg/dL LOW Phosphorus 3.1 mg/dL Magnesium 1.7 mg/dL Ethanol Lvl <10 mg/dL 10/08/2023 15:35 EDT Blood Culture Charcoal NEG (In Progress) 10/08/2023 15:28 EDT Blood Culture Charcoal NEG (In Progress) 10/08/2023 14:00 EDT U Amph Scr NEGATIVE U Marlee Scr NEGATIVE U Benzodia Scr NEGATIVE U Cannab Scr POSITIVE U Cocaine Scr NEGATIVE U Opiate Scr POSITIVE U PCP Scr NEGATIVE U Fentanyl POSITIVE UA Spec Desc Frankel UA Color [place] UA Clarity Ex.Turbid UA Spec Grav 1.018 UA pH 6.0 UA Protein 2+ mg/dL UA Glucose Negative mg/dL UA Ketones 2+ mg/dL UA Bili Negative mg/dL UA Blood 3+ mg/dL UA Nitrite 2+ mg/dL UA Urobilinogen Negative mg/dL UA Leuk Est 500 Nima/uL Nima/uL UA RBC >75 graded/HPF UA WBC >75 graded/HPF UA Bacteria 4+ /HPF UA Mucous 1+ graded/LPF UA WBC Clump >30 graded/HPF Urine Culture POS (In Progress) 10/08/2023 12:57 EDT PT 12.3 second(s) INR 1.10 NA PTT 47.8 second(s) HI ABO/Rh Retype Interp B POS 10/08/2023 12:13 EDT ABO/Rh Interp B POS ABSC Gel Interp Negative 10/08/2023 12:04 EDT Glucose Cap 95 mg/dL POC Device SN [id number] POC User ID [id number] POC Username POC Username 10/08/2023 12:00 EDT WBC 16.6 E9/L HI RBC 3.8 E12/L LOW HGB 12.1 gm/dL Hct 36.5 % MCV 95.3 fL MCH 31.6 pg MCHC 33.2 gm/dL RDW 13.0 % Platelet 509.0 E9/L HI MPV 7.4 fL Neutro Auto 87.1 % HI Lymph Auto 5.5 % LOW Moody Auto 7.2 % Eos Auto 0.0 % Basophil Auto 0.2 % Neutro Absolute 14.4 E9/L HI Lymph Absolute 0.9 E9/L LOW Moody Absolute 1.2 E9/L HI Eos Absolute 0.0 E9/L Basophil Absolute 0.0 E9/L RBC Morph NORMAL Toxic Gran PRESENT Glucose Lvl 108 mg/dL BUN 25 mg/dL HI Creatinine 0.6 mg/dL eGFR 99 mL/min/1.73 m2 BUN/Creat Ratio 42 HI Sodium Lvl 137 mmol/L Potassium Lvl 3.5 mmol/L Chloride 105 mmol/L CO2 20 mmol/L LOW AGAP 16 mEq/L Calcium Lvl 8.2 mg/dL LOW Alk Phos 106 Int._Unit/L HI ALT 35 Int._Unit/L AST 65 Int._Unit/L HI Total Protein 5.9 gm/dL LOW Albumin Lvl 2.9 gm/dL LOW Globulin 3.0 gm/dL A/G Ratio 1.0 LOW Bili Total 0.6 mg/dL Bili Direct 0.2 mg/dL Bili Indirect 0.4 mg/dL Lipase Lvl 256 unit/L HI Lactic Acid Lvl 1.9 mmol/L Magnesium 1.8 mg/dL Troponin HS 26.70 pg/mL Total CK 442 Int._Unit/L CRIT Ethanol Lvl <10 mg/dL . Impression and Plan Diagnosis Pre-op dx-rt hip 3 pt IT hip fx, right impacted distal radius fracture Post-op dx-same Procedure-rt hip IMn, wrist CRPP Anesthesia-gen álvarez EBL-100cc TT-0 To Recovery Room in stable and satisfactory condition.. Normal [facility] Comment on above: Result Comment: Elec tronically Signed By: Chana Lemons DO\.br\Date and Time Signed: 10/09/23 18:20 EDT Outpatient Surgery Discharge Instructionon 10-09-2023 Outpatient Surgery Discharge Instruction [place] [id number] Patient Discharge Instructions PERSON INFORMATION Name: CATHERINE ADAMSON Kisha Date of : 1960 Current Date: 10/09/2023 18:19:11 PHYSICIANS Admitting Physician: Art GARCIA, Regi Alvarez Discharge Diagnosis: Alcohol abuse; Colles' fracture; Hip fracture, right; Pancreatitis, acute; Rhabdomyolysis CATHERINE ADAMSON has been given the following list of follow-up instructions, prescriptions, and patient education materials: PATIENT FOLLOW-UP INFORMATION Diet: Regular Discharge Activity: Arrange for a responsible adult supervision for 24 hours, Expect mild pain, Expect minimal amount of drainage and/or bleeding, Partial weight bearing, Do not lift more than 5 lbs Discharge Restrictions: No driving, Do not operate machinery or tools, Do not make important decisions for 24 hours, Do not drink alcoholic beverages for 24 hours Call Your Doctor For: Persistent or heavy bleeding, Temperature above 101.5 degrees, Redness, swelling, or pus at operative site, Severe pain at the operative site, Persistent vomiting Wound Care Instructions: Do not remove dressing, Keep incision dry Additional Instructions: 50% partial weight right hip 4 weeks. [place] out right hip 2-3 weeks. No weight right arm 4 weeks. F/u right arm 2-3 weeks for recheck. Fall precautions. IF UNABLE TO CONTACT YOUR PHYSICIAN AND YOU FEEL IT IS AN EMERGENCY, GO TO THE NEAREST EMERGENCY ROOM OR CALL 911 I, CATHERINE ADAMSON, have received the attached patient education materials/instructions and have verbalized understanding: May we do a follow up call? Yes No I was present when discharge instructions were given Patient Signature Date Clinican/Nurse Signature Date Follow up: With: Address: When: Chana Lemons [address] [place] [phone] Business (1) Comments: Call for followup appointment 2-3 weeks for staple removal right hip and recheck right wrist and hip. With: Address: When: XIMENA ASTUDILLO [address] [place] [phone] Business (1) Pharmacy Information: You may receive a survey from [employer] asking you to rate your care experience. Your feedback is important and will help us understand what we do well and how we can improve the quality of care we provide to you, your loved ones and our community. It?s an honor to serve you. Thank you for choosing [facility] HERE ARE THE MEDICATION CHANGES THAT OCCURRED DURING YOUR HOSPITAL STAY Medications to Continue with No Changes Other Medications albuterol (Ventolin HFA 90 mcg/inh Aerosol) Inhalation every 6 hours. apremilast 30 Milligram By Mouth every day. aspirin (aspirin 81 mg Oral EC Tab) By Mouth every day. budesonide-formoterol (Symbicort 80/4.5 inhalation aerosol with adapter) 2 Puffs Inhalation 2 times a day. clopidogrel (clopidogrel 75 mg Tab) By Mouth every day. metoprolol (metoprolol 25 mg ER Tab) By Mouth every day. NIFEdipine (NIFEdipine 30 mg ER Tab) By Mouth every day. nitroglycerin potassium chloride (Potassium Chloride (Vsu-Genb-Cfi 10)) By Mouth 2 times a day. sodium chloride (Sodium Chloride) No Longer Take the Following Medications hydrochlorothiazide-lisinopril (hydrochlorothiazide-lisinopri l 12.5 mg-20 mg Tab) By Mouth every day. magnesium sulfate/potass Cl/sodium sulf (Sutab oral tablet) Please follow instructions per packaging and physician's handout. Refills: 0., Ordered as indicated per Dr. Hernandez. tramadol (traMADOL 50 mg Tab) By Mouth every 6 hours. PATIENT EDUCATION INFORMATION Instructions: Medication Leaflets: Normal [facility] Patient Education - Texton 0 10-09-2023 Patient Education - Text Normal [facility] Patient Education - Text [facility] Phosphoruson 10-09-2023 Phosphate [Mass/Vol] 3.1 mg/dL Normal 1.9-4.6 [facility] Comment on above: Performed By: #### 2 [id number] #### [facility] Laboratory [address] [place] [address] Progress Note-Nurseon 2023 Progress Note-Nurse Patient returned fro PACU and requested PRN pain medication. It was too soon to give PRN Dilaudid, so patient requested PRN Morphine. So medication was pulled from the Pyxis, and scanned using the MAR, then while flushing the IV as we prepared to give the Morphine, it was noticed that the IV was leaking. Troubleshooting failed to save the IV, so it was discontinued and new one was placed, then PRN Morphine was given. Then the nurse attempted to sign medication off with finger print, and it wouldn't save and said order no longer exists. In the time we had been in the room giving the medication, trauma had discontinued the PRN Morphine. Pharmacy was called, situation was explained and Romeo said to make a one time order on the completed medication to validate the medication given while order was still active. Normal [facility] Progress Note-Physicianon Progress Note-Physician Patient: CATHERINE ADAMSON Age: 63 years Sex: Female : 1960 Associated Diagnoses: None Author: Chana Lemons DO Basic Information Pt seen and examined. fall with alcohol hx, tobacco abuse, HTN, CAD Right displaced 3 part pathologic (osteoporotic) IT hip fx Right closed displaced impacted distal radius with ulnar styloid comp osteoporosis Alcohol/tobacco abuse Continue NPO. Consent signed and witnessed for right hip IMN/Right wrist CRPP 4:45pm today. Hold blood thinners, will resume tomorrow am. No DT s/s at this point. Anticipate 2-3 day stay with rehab placement. Resume Lovenox am POD#1 All questions answered. Health Status Allergies: Allergic Reactions (All) No Known Allergies Normal [facility] Comment on above: Result Comment: Elec tronically Signed By: Chana Lemons DO\.br\Date and Time Signed: 10/09/23 06:35 EDT eGFRon 10-09-2023 eGFR 71 mL/min/1.73 m2 Normal >=59 [facility] Comment on above: Order Comment: Order added by Discern Expert. Performed By: #### 1 [id number] ####[facility] [id number] [place] [address] ABO/Rhon 10-08-2023 ABO/Rh Positive Invalid Interpretation Code [facility] Comment on above: Performed By: #### 2 [id number] #### [facility] Laboratory [address] [place] [address] ABO/Rh History Checkon 10-07 ABO/Rh History Check Type verified by second s Normal [facility] Comment on above: Performed By: #### 1 [id number] #### [facility] Laboratory [address] [place] [address] ABO/Rh Retypeon 10-08-2023 ABO/Rh Retype Interp Positive Invalid Interpretation Code [facility] Comment on above: Order Comment: pt in CT [id number] 10/08/2023 12:37:24 EDT Performed By: #### 1 [id number] #### [facility] [address] [place] [address] ABSCon 10-08-2023 ABSC Gel Interp Negative Normal [facility] Comment on above: Performed By: #### 1 [id number] #### [facility] [address] [place] [address] AMIKACIN:SUSC:PT:ISOLATE:ORD QN:MICOrdered By: Vonnie Jauregui on 10-08-2023 Amikacin YUNI [Susc] >100,000 cfu/ml Citr obacter farmeri [facility] Amikacin YUNI [Susc]Ordered B y: Vonnie Jauregui on 10-08-2023 Citrobacter farmeri Citrobacter farmeri [facility] BLOOD BANKOrdered By: Nichelle Shoemaker on 10-08-2023 ABO/Rh Retype Interp Positive Invalid Interpretation Code [facility] BB Subsection ABO/Rh Interp Positive Invalid Interpretation Code [facility] BB Subsection ABSC Gel Interp Negative (10/08/23 12:13 PM) Normal [facility] BB Subsection BMPon 10-08-2023 Anion gap [Moles/Vol] 16 mmol/L Normal 6-16 [facility] Comment on above: Performed By: #### 2 [id number] #### [facility] [address] [place] [address] Calcium [Mass/Vol] 8.2 mg/dL Low 8.9-11.1 [facility] Comment on above: Performed By: #### 2 [id number] #### [facility] [address] [place] [address] Chloride [Moles/Vol] 105 mmol/L Normal 101-111 [facility] Comment on above: Performed By: #### 2 [id number] #### [facility] [address] [place] [address] CO2 [Moles/Vol] 20 mmol/L Low 21-31 [facility] Comment on above: Performed By: #### 2 [id number] #### [facility] [address] [place] [address] Creatinine [Mass/Vol] 0.6 mg/dL Normal 0.5-1.3 [facility] Comment on above: Performed By: #### 2 [id number] #### [facility] [address] [place] [address] Glucose [Mass/Vol] 108 mg/dL Normal 55-199 [facility] Comment on above: Performed By: #### 2 [id number] #### [facility] [address] [place] [address] Potassium [Moles/Vol] 3.5 mmol/L Normal 3.5-5.3 [facility] Comment on above: Performed By: #### 2 [id number] #### [facility] [address] [place] [address] Sodium [Moles/Vol] 137 mmol/L Normal 135-145 [facility] Comment on above: Performed By: #### 2 [id number] #### [facility] [address] [place] [address] Urea nitrogen [Mass/Vol] 25 mg/dL High 5-21 [facility] Comment on above: Performed By: #### 2 [id number] #### [facility] [address] [place] [address] Urea nitrogen/Creatinine [Mass ratio] 42 No Units High 10-20 [facility] Comment on above: Performed By: #### 2 [id number] #### [facility] [address] [place] [address] Blood Bank ID#on 10-08-2023 BBID# [id number] Invalid Interpretation Code [facility] Comment on above: Performed By: #### 1 [id number] #### [facility] [address] [place] [address] CBC w/ Auto Diffon 4 Basophils/100 WBC (Bld) 0.2 % Normal 0.0-2.0 [facility] Comment on above: Performed By: #### 2 [id number] #### [facility] [address] [place] [address] Basophils/Leukocyte s Auto (Bld) [Pure # fraction] 0.0 E9/L Normal 0.0-0.2 [facility] Comment on above: Performed By: #### 2 [id number] #### [facility] [address] [place] [address] Eosinophils (Bld) [#/Vol] 0.0 E9/L Normal 0.0-0.5 [facility] Comment on above: Performed By: #### 2 [id number] #### [facility] [address] [place] [address] Eosinophils/100 WBC (Bld) 0.0 % Normal 0.0-8.0 [facility] Comment on above: Performed By: #### 2 [id number] #### [facility] [address] [place] [address] Erythrocyte distribution width (RBC) [Ratio] 13.0 % Normal 10.9-14.2 [facility] Comment on above: Performed By: #### 2 [id number] #### [facility] [address] [place] [address] Hematocrit (Bld) [Volume fraction] 36.5 % Normal 34.0-46.0 [facility] Comment on above: Performed By: #### 2 [id number] #### [facility] [address] [place] [address] Hemoglobin (Bld) [Mass/Vol] 12.1 g/dL Normal 12.0-16.0 [facility] Comment on above: Performed By: #### 2 [id number] #### [facility] [address] [place] [address] Lymphocytes (Bld) [#/Vol] 0.9 E9/L Low 1.0-4.0 [facility] Comment on above: Performed By: #### 2 [id number] #### [facility] [address] [place] [address] Lymphocytes/100 WBC (Bld) 5.5 % Low 14.0-50.0 [facility] Comment on above: Performed By: #### 2 [id number] #### [facility] [address] [place] [address] MCH (RBC) [Entitic mass] 31.6 pg Normal 27.0-34.0 [facility] Comment on above: Performed By: #### 2 [id number] #### [facility] [address] [place] [address] MCHC (RBC) [Mass/Vol] 33.2 g/dL Normal 31.4-36.0 [facility] Comment on above: Performed By: #### 2 [id number] #### [facility] [address] [place] [address] MCV (RBC) [Entitic vol] 95.3 fL Normal 80.0-100.0 [facility] Comment on above: Performed By: #### 2 [id number] #### [facility] [address] [place] [address] Monocytes (Bld) [#/Vol] 1.2 E9/L High 0.2-1.0 [facility] Comment on above: Performed By: #### 2 [id number] #### [facility] Laboratory [address] [place] [address] Neutrophils (Bld) [#/Vol] 14.4 E9/L High 2.0-7.5 [facility] Comment on above: Performed By: #### 2 [id number] #### [facility] Laboratory [address] [place] [address] Neutrophils/100 WBC (Bld) 87.1 % High 36.0-75.0 [facility] Comment on above: Performed By: #### 2 [id number] #### [facility] [address] [place] [address] Platelet mean volume (Bld) [Entitic vol] 7.4 fL Normal 6.4-10.8 [facility] Comment on above: Performed By: #### 2 [id number] #### [facility] [address] [place] [address] Platelets (Bld) [#/Vol] 509.0 E9/L High 150.0-500. 0 [facility] Comment on above: Performed By: #### 2 [id number] #### [facility] [address] [place] [address] RBC (Bld) [#/Vol] 3.8 E12/L Low 4.3-5.9 [facility] Comment on above: Performed By: #### 2 [id number] #### [facility] [address] [place] [address] RBC size Nom (Bld) NORMAL Invalid Interpretation Code [facility] Comment on above: Performed By: #### 2 [id number] #### [facility] [address] [place] [address] Toxic granules LM Ql (Bld) PRESENT Invalid Interpretation Code [facility] Comment on above: Performed By: #### 2 [id number] #### [facility] [address] [place] [address] WBC corrected for nucl RBC Auto (Bld) [#/Vol] 16.6 E9/L High 4.0-11.0 [facility] Comment on above: Performed By: #### 2 [id number] #### [facility] [address] [place] [address] CHEMISTRYOrdered By: SYSTEM SYSTEM on 10-08-2023 Amphetamines Screen method >1000 ng/mL Ql (U) NEGATIVE 9 (10/08/23 2:00 PM) Normal NEGATIVE Remisol Chem Comment on above: Interpretive Data: N egative Cutoff: <1000 ng/mL Barbiturates Screen Ql (U) NEGATIVE 10 (10/08/23 2:00 PM) Normal NEGATIVE Remisol Chem Comment on above: Interpretive Data: N egative Cutoff: <200 ng/mL Benzodiazepines Ql (U) NEGATIVE 1 (10/08/23 2:00 PM) Normal NEGATIVE Remisol Chem Comment on above: Interpretive Data: N egative Cutoff: <200 ng/mL Cannabinoids Screen Ql (U) POSITIVE 7, 8 *ABN* (10/08/23 2:00 PM) Invalid Interpretation Code NEGATIVE Remisol Chem Comment on above: Result Comment: Crit ical Result Verified by Repeat Analysis No Confirmation Requested by Physician Unconfirmed by an Alternate Method Called to Anna sam by [email or web address] Interpretive Data: N egative Cutoff: <50 ng/mL Cocaine Ql (U) NEGATIVE 2 (10/08/23 2:00 PM) Normal NEGATIVE Remisol Chem Comment on above: Interpretive Data: N egative Cutoff: <300 ng/mL Opiates Screen Ql (U) POSITIVE 4, 5 *ABN* (10/08/23 2:00 PM) Invalid Interpretation Code NEGATIVE Remisol Chem Comment on above: Result Comment: Crit ical Result Verified by Repeat Analysis Called to Anna Sam In ER by [email or web address] No Confirmation Requested by Physician Unconfirmed by an Alternate Method Interpretive Data: N egative Cutoff: <300 ng/mL Phencyclidine Screen method >25 ng/mL Ql (U) NEGATIVE 6 (10/08/23 2:00 PM) Normal NEGATIVE Remisol Chem Comment on above: Interpretive Data: N egative Cutoff: <25 ng/mL These drug screen results are to be used for medical (i.e., treatment) purposes only. Unconfirmed drug screening results must not be used for non-medical purposes (e.g., employment testing, legal testing). U Fentanyl POSITIVE 19, 20 *ABN* (10/08/23 2:00 PM) Invalid Interpretation Code NEGATIVE Remisol Chem Comment on above: Result Comment: Crit ical Result Verified by Repeat Analysis No Confirmation Requested by Physician Unconfirmed by an Alternate Method Called to Anna Easley Interpretive Data: N egative Cutoff: <5 ng/mL These drug screen results are to be used for medical (i.e., treatment) purposes only. Unconfirmed drug screening results must not be used for non-medical purposes (e.g., employment testing, legal testing). Albumin/Globulin [Mass ratio] 1.0 {ratio} Low 1.1 - 2.2 Remisol Chem ALP [Catalytic activity/Vol] 106 [iU]/d High 21 - 98 Int._Unit/ L Remisol Chem ALT No additional P-5'-P [Catalytic activity/Vol] 35 [iU]/d Normal 6 - 46 Int._Unit/ L Remisol Chem AST [Catalytic activity/Vol] 65 [iU]/d High 5 - 43 Int._Unit/ L Remisol Chem Ethanol Lvl mg/dL Normal <=11mg/dL Remisol Chem Total CK 442 [iU]/d Invalid Interpretation Code 14 - 261 Int._Unit/ L Remisol Chem Comment on above: Result Comment: Crit ical Result Verified by Repeat Analysis Critical Result [id number] Called to and read back by: ADOLFO PUTNAM at: 10/08/2023 13:08:23 by:ROSEMARIE Troponin HS 26.70 pg/mL Normal 10.10 - 27.10 pg/mL Remisol Chem Comment on above: Interpretive Data: T he 95% CI (Confidence Interval) PPV (Positive Predictive Value) for myocardial infarction in females is 38 pg/mL, in males 51 pg/mL. The results should be used in conjunction with clinical conditions of myocardial infarction. (Access High Sensitivity Troponin I Instructions For Use, Graciela Shelby, December 2017) CHEMISTRYOrdered By: Lab ROP User on 10-08-2023 Glucose [Mass/Vol] 95 mg/dL Normal 55 - 99 mg/dL [facility] POC Subsection Comment on above: Result Comment: Katie farhan Meter POC Device SN [id number] 1 Invalid Interpretation Code [facility] POC Subsection POC User ID [id number] 1 Invalid Interpretation Code [facility] POC Subsection POC Username JOSE ADAMS Invalid Interpretation Code [facility] POC Subsection CKon 10-08-2023 Total CK 442 Int._Unit/L Abnormal 14-261 [facility] Comment on above: Result Comment: Crit ical Result Verified by Repeat Analysis Critical Result [id number] Called to and read back by: ADOLFO PUTNAM at: 10/08/2023 13:08:23 by:ROSEMARIE Performed By: #### 2 [id number] #### [facility] [address] [place] [address] COAGULATIONOrdered By: Brissa Dacosta on 10-08-2023 aPTT Coag (PPP) [Time] 47.8 s High 25.1 - 36.5 second(s) [facility] Auto Coag Comment on above: Interpretive Data: Dulce georges 15 days - 4 weeks 1 - 5 months 6 - 11 months 1 - 5 years 6 - 10 years 11 - 17 years PTT Mean: 35.4 (27.6-45.6) Mean: 33.5 (24.8-40.7) Mean: 32.4 (25.1-40.7) Mean: 31.6 (24.0-39.2) Mean: 31.6 (26.9-38.7) Mean: 31.0 (24.6-38.4) Pediatric Reference ranges were obtained from a study by martin Conner al. prepared from [id number] samples obtained at 7 different centers using the same coagulation reagent and instrumentation as [facility]. Currently there are no coagulation studies available worldwide for children to 14 days, and no normal ranges. Heparin therapeutic range (represented by Anti-Factor Xa activity of 0.2 - 0.4 U/mL) corresponds to PTT of 56.6 - 109.0 sec. INR Coag (PPP) [Relative time] 1.10 {INR} Invalid Interpretation Code [facility] Auto [employer] Comment on above: Interpretive Data: I NR results are specifically intended to assess patients stabilized on long-term Anticoagulation therapy suggested INR s Less Intensive Anticoagulation 2.0 3.0 Conventional Range 3.0 4.5 PT Coag (PPP) [Time] 12.3 s Normal 9.4 - 12.5 second(s) [facility] [employer] Comment on above: Interpretive Data: 1 5 days - 4 weeks 1 - 5 months 6 -11 months 1 5 years 6 10 years 11 -17 years Mean: 11.2 (9.5 12.6) Mean: 11.0 (9.7 12.8) Mean: 11.0 (9.8 13.0) Mean: 11.3 (9.9 13.4) Mean: 11.7 (10.0 14.6) Mean: 11.8 (10.0 - 14.1) Pediatric Reference ranges were obtained from a study by martin Conner al. prepared from 1437 samples obtained at 7 different centers using the same coagulation reagent and instrumentation as [facility]. Currently there are no coagulation studies available worldwide for children to 14 days, and no normal ranges. CT Abdomen/Pelvis w/o Contra ston 10-08-2023 CT Abdomen/Pelvis w/o Contrast Exam Date/Time: 10/08/2023 12:49 EDT Reason for Exam: Abdominal trauma, blunt;Other (please specify) Report Please see CT chest report. Ordering Provider: Rigo Anderson FINAL REPORT Dictated: 10/08/2023 1:15 pm Talon Rose DO Signed (Electronic Signature): 10/08/2023 1:15 pm Signed by: Talon Rose DO Transcribed by: RICHARD Technologist: ANGELES Technical Comments Rectal Contrast Given? No Oral contrast amount in ml's: 0 Normal [facility] CT Chest w/o Contraston 05-2 CT Chest w/o Contrast Exam Date/Time: 10/08/2023 12:49 EDT Reason for Exam: Chest trauma, blunt;Other (please specify) Report IMPRESSION: ACUTE COMMINUTED RIGHT INTERTROCHANTERIC FRACTURE. AGE-INDETERMINATE BURST FRACTURE OF T9 WITH LOSS OF HEIGHT OF APPROXIMATELY 20% AND RETROPULSION OF THE POSTERIOR INFERIOR ENDPLATE OF APPROXIMATELY 3 MM. CHRONIC APPEARING COMPRESSION DEFORMITIES OF L1 AND L5. MINIMAL EDEMA ALONG THE PANCREATIC HEAD IS SUSPICIOUS FOR ACUTE PANCREATITIS. HEPATIC STEATOSIS. EXAM: CT Chest w/o Contrast History: Blunt chest trauma. Fall. Dizziness. Right hip and leg pain. Technique: Multiple contiguous axial images were obtained of the chest, abdomen, and pelvis from the thoracic inlet through the ischial tuberosities without contrast. Multiplanar reformats were obtained. Unless otherwise stated, incidental findings identified in this report do not require routine follow-up imaging. Comparison: None available Findings: CHEST: Visualized portion of the thyroid gland is within normal limits. No axillary, mediastinal, or hilar lymphadenopathy. No thoracic aortic aneurysm. Heart size is within normal limits. No significant pericardial effusion. Coronary artery calcifications are identified. Mitral annular calcification. Esophagus is within normal limits. No pulmonary nodule or mass. No consolidation, pleural effusion, or pneumothorax. Decreased bone mineralization. Age indeterminant burst fracture of T9 with loss of height of approximately 20% and retropulsion of the posterior inferior endplate of approximately 3 mm. Chronic right rib deformities. Report ABDOMEN/PELVIS: Lack of intravenous contrast precludes optimal evaluation of the abdominal and pelvic viscera. Hypoattenuation of the liver. The gallbladder, stomach, spleen, and adrenal glands appear within normal limits. Minimal edema/free fluid along the head of the pancreas without distinct pancreatic lesion. The unenhanced kidneys appear within normal limits. No urinary tract calculi or hydronephrosis. Urinary bladder is incompletely distended but otherwise unremarkable. Uterus is present. Abdominal aorta is nonaneurysmal. Atherosclerotic calcification of the abdominal aorta. No retroperitoneal or abdominal/pelvic lymphadenopathy. No small bowel obstruction. No overt colonic mass or pericolonic inflammation. Appendix is within normal limits. No free fluid or free air. Decreased bone mineralization. Acute comminuted and angulated intertrochanteric fracture on the right. Lumbarization of S1 on the right. Chronic appearing severe anterior wedge compression deformity of L1 with approximately 3 mm retropulsion of the posterior superior endplate. Chronic appearing moderate compression deformity of L5. All CT scans at this facility use dose modulation, iterative reconstruction, and/or weight based dosing when appropriate to reduce radiation dose to as low as reasonably achievable. Ordering Provider: Rigo Anderson FINAL REPORT Dictated: 10/08/2023 1:15 pm Talon Rose DO Signed (Electronic Signature): 10/08/2023 1:15 pm Signed by: Talon Rose DO Transcribed by: RICHARD Technologist: ANGELES Mcguire [facility] CT Head or Brain w/o Contras ton 10-08-2023 CT Head or Brain w/o Contrast Exam Date/Time: 10/08/2023 12:49 EDT Reason for Exam: Head trauma, moderate-severe;Other (please specify) Report IMPRESSION: NO ACUTE INTRACRANIAL PROCESS. GENERALIZED PARENCHYMAL VOLUME LOSS AND NONSPECIFIC WHITE MATTER FINDINGS MOST COMPATIBLE WITH CHRONIC SMALL VESSEL ISCHEMIC CHANGES IN A PATIENT OF THIS AGE. EXAMINATION: CT of the brain without contrast HISTORY: Dizziness COMPARISON: None available TECHNIQUE: Multiple axial images were obtained of the brain from the skull base through the vertex. Multiplanar reformats were obtained. FINDINGS: Prominence of the sulci and ventricles compatible with mild generalized parenchymal volume loss. Sinclair-white matter differentiation is preserved. Areas of bilateral supratentorial white matter hypoattenuation are nonspecific but most likely due to chronic small vessel ischemic changes in a patient of this age. No acute hemorrhage or abnormal extra-axial fluid collection. Basal cisterns are patent. No mass effect or midline shift. The visualized paranasal sinuses and mastoid air cells are clear. Calvarium is intact. All CT scans at this facility use dose modulation, iterative reconstruction, and/or weight based dosing when appropriate to reduce radiation dose to as low as reasonably achievable. Ordering Provider: Rigo Anderson FINAL REPORT Dictated: 10/08/2023 12:56 pm Talon Rose DO Signed (Electronic Signature): 10/08/2023 12:56 pm Signed by: Talon Rose DO Transcribed by: RICHARD Technologist: ANGELES Mcguire [facility] CT Spine Cervical w/o Contra ston 10-08-2023 CT Spine Cervical w/o Contrast Exam Date/Time: 10/08/2023 12:49 EDT Reason for Exam: Neck trauma;Other (please specify) Report IMPRESSION: NO ACUTE FRACTURE OR MALALIGNMENT. EXAM: CT SCAN OF THE CERVICAL SPINE HISTORY: Neck pain after a fall COMPARISON: None available TECHNIQUE: Routine axial CT images and multiplanar reformatted images of the cervical spine were obtained. FINDINGS: No acute fracture or malalignment. Atlantodental interval is preserved. Cervical spine vertebral body heights are maintained. Multilevel degenerative disc disease, facet arthropathy, and uncovertebral hypertrophy resulting in varying degrees of osseous neuroforaminal stenosis. No prevertebral soft tissue swelling. Lung apices are clear. Atherosclerotic calcification at the carotid bulbs. All CT scans at this facility use dose modulation, iterative reconstruction, and/or weight based dosing when appropriate to reduce radiation dose to as low as reasonably achievable. Ordering Provider: Rigo Anderson FINAL REPORT Dictated: 10/08/2023 1:01 pm Talon Rose DO Signed (Electronic Signature): 10/08/2023 1:01 pm Signed by: Talon Rose DO Transcribed by: RICHARD Technologist: ANGELES Mcguire [facility] Capillary Glucose POCon 09-12 Glucose [Mass/Vol] 95 mg/dL Normal 55-99 [facility] Comment on above: Result Comment: Katie real Meter Performed By: #### 2 [id number] #### [facility] Laboratory [address] [place] [id number] Consent for Treatmenton 09-12 Consent for Treatment [id number] Normal [facility] ED Clinical Summaryon 2023 ED Clinical Summary (Inserted Image. Patricia ble to display) [address] [address] ED Clinical Summary Person Information Name: CATHERINE ADAMSON[place] Age: 63 Years : 1960 Sex: Female Language: Greek PCP: XIMENA ASTUDILLO MD Marital Status: Visit Id: Visit Reason: Leg pain-swelling; Hip pain-swelling; Dizziness; Fall; FALL Speciality: Acuity: 2 Enc Type: Inpatient Med Service: Emergency Arrival: 10/08/2023 11:57:18 Discharge: LOS: 000 06:15 Checkin: 10/08/2023 11:57:18 Checkout: 10/08/2023 18:12:00 Dispo Type: Admitted as IP to this [facility] EVENTS: Event Name Event Status Request Date/Time Start Date/Time Complete Date/Time Arrive Complete 10/08/2023 11:57:18 10/08/2023 11:57:18 10/08/2023 11:57:18 Document Home Meds Request 10/08/2023 11:57:18 Triage Complete 10/08/2023 11:57:18 10/08/2023 12:06:40 10/08/2023 12:06:40 Bed Assign Complete 10/08/2023 11:57:18 10/08/2023 11:57:18 10/08/2023 11:57:18 Dr Exam Complete 10/08/2023 11:57:18 10/08/2023 11:59:03 10/08/2023 11:59:03 RN Exam Complete 10/08/2023 11:57:18 10/08/2023 13:15:43 10/08/2023 13:15:43 Registration Complete 10/08/2023 11:59:03 10/08/2023 12:02:06 10/08/2023 12:02:06 EKG Complete 10/08/2023 12:00:37 10/08/2023 13:08:00 Reg Complete Request 10/08/2023 12:02:06 Reg Bed Request Complete 10/08/2023 12:02:06 10/08/2023 12:02:06 10/08/2023 12:02:06 Patient Care Request 10/08/2023 12:02:48 Meds Admin Complete 10/08/2023 12:02:58 10/08/2023 12:10:58 Pending Labs Complete 10/08/2023 12:02:58 10/08/2023 14:58:17 Lab Complete 10/08/2023 12:02:58 10/08/2023 14:58:17 Urine Collect Complete 10/08/2023 12:02:58 10/08/2023 14:58:17 RT Cancel 10/08/2023 12:02:58 10/08/2023 16:40:09 Patient Care Complete 10/08/2023 12:02:58 10/08/2023 17:50:15 Blood Collect Request 10/08/2023 12:02:58 CT Complete 10/08/2023 12:02:58 10/08/2023 12:05:09 10/08/2023 12:49:15 X-Ray Complete 10/08/2023 12:02:58 10/08/2023 12:06:29 10/08/2023 12:58:05 Pending Labs Cancel 10/08/2023 12:02:59 10/08/2023 14:12:35 Pending Labs Complete 10/08/2023 12:06:01 10/08/2023 12:06:01 10/08/2023 12:06:01 X-Ray Complete 10/08/2023 12:20:37 10/08/2023 12:47:34 10/08/2023 12:58:05 Pending Labs Complete 10/08/2023 12:22:40 10/08/2023 12:22:40 10/08/2023 12:50:58 Lab Complete 10/08/2023 12:22:40 10/08/2023 12:22:40 10/08/2023 12:50:58 Pending Labs Cancel 10/08/2023 12:34:11 10/08/2023 12:35:45 Lab Cancel 10/08/2023 12:34:11 10/08/2023 12:35:45 Pending Labs Complete 10/08/2023 12:35:33 10/08/2023 13:10:08 Blood Collect Request 10/08/2023 12:35:33 Pending Labs Complete 10/08/2023 12:36:05 10/08/2023 12:36:05 10/08/2023 12:49:29 Lab Complete 10/08/2023 12:36:05 10/08/2023 12:36:05 10/08/2023 12:49:29 Pending Labs Complete 10/08/2023 12:44:45 10/08/2023 13:29:41 Wet Read Complete 10/08/2023 12:58:05 10/08/2023 12:58:32 10/08/2023 12:58:32 Fall Risk Request 10/08/2023 13:15:44 Meds Admin Cancel 10/08/2023 13:59:50 10/08/2023 14:35:36 Pending Labs Inlab 10/08/2023 14:27:36 10/08/2023 14:27:36 Lab Inlab 10/08/2023 14:27:36 10/08/2023 14:27:36 Bed Request Request 10/08/2023 14:30:54 Reg Bed Request Complete 10/08/2023 14:30:54 10/08/2023 14:35:06 10/08/2023 14:35:06 Admit Request 10/08/2023 14:30:54 Meds Admin Request 10/08/2023 14:30:54 Consult Request 10/08/2023 14:33:30 Patient Care Request 10/08/2023 14:35:07 Patient Care Request 10/08/2023 14:35:07 Patient Care Complete 10/08/2023 14:35:07 10/08/2023 17:50:29 Patient Care Request 10/08/2023 14:35:07 Patient Care Complete 10/08/2023 14:35:08 10/08/2023 17:50:20 Patient Care Request 10/08/2023 14:35:08 Meds Admin Request 10/08/2023 14:41:21 Patient Care Complete 10/08/2023 14:41:21 10/08/2023 15:44:00 Patient Care Request 10/08/2023 14:45:20 Meds Admin Request 10/08/2023 14:45:20 Pending Labs Request 10/08/2023 14:45:20 Lab Request 10/08/2023 14:45:20 Bed Request Request 10/08/2023 14:45:21 Reg Bed Request Complete 10/08/2023 14:45:21 10/08/2023 14:58:29 10/08/2023 14:58:29 Admit Request 10/08/2023 14:45:21 Blood Collect Request 10/08/2023 14:45:21 Meds Admin Complete 10/08/2023 14:50:44 10/08/2023 15:04:53 Meds Admin Request 10/08/2023 14:57:59 RT Tx/ABG Request 10/08/2023 14:58:00 RT Tx/ABG Request 10/08/2023 14:58:00 RT Tx/ABG Request 10/08/2023 14:58:01 RT Tx/ABG Request 10/08/2023 14:58:01 RT Tx/ABG Request 10/08/2023 14:58:01 RT Tx/ABG Request 10/08/2023 14:58:01 Meds Admin Request 10/08/2023 15:01:58 Pending Labs Inlab 10/08/2023 15:09:34 Lab Inlab 10/08/2023 15:09:34 NPO Request 10/08/2023 15:27:06 Possible SIRS Request 10/08/2023 15:45:38 Pending Labs Complete 10/08/2023 16:41:25 10/08/2023 16:41:25 10/08/2023 16:41:26 RT Request 10/08/2023 16:43:21 Meds Admin Request 10/08/2023 17:08:06 Meds Admin Request 10/08/2023 17:09:06 Meds Admin Request 10/08/2023 17:09:41 Patient Care Request 10/08/2023 17:46:12 ADDRESS: [address] [place] [id number] PHYS DOC NOTES: Addendum by Richardson (more content not included)... Normal [facility] ED Note-Physicianon 10-08-19 24 ED Note-Physician Basic Information Time Seen: Rigo Anderson DO 10/08/2023 11:59 History of Present Illness 63 female presents emergency department by EMS with a fall. History somewhat limited by the patient being a bit confused about what happened. From what I can gather patient had a fall at some point on and has been on the floor ever since then about 3 or 4 days later. Patient states that she does have pain in her right hip which is preventing her from getting up. Family came to check on her today and found her on the floor EMS was called. Patient denies any headache or neck pain no chest pain difficulty breathing no abdominal pain. She does complain of pain to the right hip denies any prior surgeries or injuries here before. She does state that she has trouble with her sodium levels which often will make her weekend caused her to fall. She denies any other prior treatments no other injuries or complaints. Patient was given 50 mcg of fentanyl by EMS just prior to arriving here in the ER. No other aggravating or relieving factors no other associated symptoms no other prior treatments or complaints. Family: Reviewed and noncontributory Social: lives at home Review of systems negative unless otherwise specified in the HPI. Physical Exam Nurses note and vital signs reviewed and noted. General: The patient appears well and in no apparent distress. Patient is resting comfortably on cart. GCS = 15. Skin: Warm, dry, moderate pallor noted. Bruising noted starting at the right elbow all the way down extending to the right hand. Patient states that she has been crawling on the carpet Head: Normocephalic, atraumatic Neck: Supple, trachea mid-line, no tenderness, no lymphadenopathy. No cervical spinal tenderness. The patient has no step-offs or crepitus noted Eyes: PERRLA, EOMI ENT: No dunn sign, no raccoon eyes, no blood in posterior oropharynx, oral mucosa is very dry Cardiovascular: Regular Rate and Rhythm, normal peripheral perfusion Respiratory: no distress, no accessory muscle use, no obvious wheezing Chest Wall: no tenderness, no flail chest, contusion, abrasion, or signs of trauma. Back: Back has no evidence of trauma, including contusion, abrasion, swelling or ecchymosis. The patient had no evidence of step-offs or crepitus noted. No tenderness to palpation. Musculoskeletal: Left upper left lower extremity exam benign. No external signs of injury no pain with range of motion. Right upper extremity: Patient does have some bruising noted to the right forearm wrist and hand. There is some generalized tenderness along the forearm into that wrist. Right lower extremity: Patient does have externally rotated and shortened extremity. She does complain of tenderness to palpation diffusely about that right hip with a lot of swelling noted here as well. Severe pain with any minimal range of motion with the right hip. No focal tenderness to the remainder of the femur knee tibia-fibula ankle or foot which is neurovascularly intact. GI: Soft, no tenderness to palpation, no masses appreciated. No rebound, guarding, or rigidity noted. Neurological: A&O, normal equal leaf conditioner strength, normal speech, normal coordination, normal motor, normal sensory. Psychiatric: Cooperative Procedure The affected extremity was immobilized. Cast padding was used to wrap the extremity. A volar wrist splint was applied by ER PA using orthoglass. The patient tolerated this procedure well. Extremity was examined after application and was found to be neurovascularly intact distally. Medical Decision Making Workup in the ER has been reviewed and noted. CT of the brain and cervical spine read by the radiologist as no acute pathology. CT of the chest abdomen pelvis also read by the radiologist there were some positive findings in the spine unclear if this was acute or chronic. Trauma was consulted did come to see the patient and determined that there was no acute interventions needed for spinal findings. Patient did have fracture of the right distal radius and ulna and orthopedics was consulted. Patient was also found to have right intertrochanteric hip fracture is treated here with 2 L IV fluids and given morphine and Zofran for pain. Patient is admitted to the service of trauma for further evaluation and treatment. She is also found to have elevated lipase and findings consistent with pancreatitis. It does insole lip turner that the patient drinks at least 6 drinks of alcohol per day. Assessment/Plan Alcohol abuse (F10.10: Alcohol abuse, uncomplicated) Colles' fracture (S52.539A: Colles' fracture of unspecified radius, initial encounter for closed fracture) Hip fracture, right (S72.001A: Fracture of unspecified part of neck of right femur, initial encounter for closed fracture) Pancreatitis, acute (K85.90: Acute pancreatitis without necrosis or infection, unspecified) Rhabdomyolysis (M62.82: Rhabdomyolysis) Orders: morphine, 4 mg = 2 mL, Injection, IV Push, Once, Stop date 10/08/23 12:02:00 EDT, S (more content not included)... Normal [facility] Comment on above: Result Comment: Elec tronically Signed By: Sarah BETHEA Rigo\.br\Date and Time Signed: 10/08/23 15:11 EDT ED Note-Physician Basic Information Time Seen: Rigo Anderson DO 10/08/2023 11:59 History of Present Illness 63 female presents emergency department by EMS with a fall. History somewhat limited by the patient being a bit confused about what happened. From what I can gather patient had a fall at some point on and has been on the floor ever since then about 3 or 4 days later. Patient states that she does have pain in her right hip which is preventing her from getting up. Family came to check on her today and found her on the floor EMS was called. Patient denies any headache or neck pain no chest pain difficulty breathing no abdominal pain. She does complain of pain to the right hip denies any prior surgeries or injuries here before. She does state that she has trouble with her sodium levels which often will make her caused her to fall. She denies any other prior treatments no other injuries or complaints. Patient was given 50 mcg of fentanyl by EMS just prior to arriving here in the ER. No other aggravating or relieving factors no other associated symptoms no other prior treatments or complaints. Family: Reviewed and noncontributory Social: lives at home Review of systems negative unless otherwise specified in the HPI. Physical Exam Nurses note and vital signs reviewed and noted. General: The patient appears well and in no apparent distress. Patient is resting comfortably on cart. GCS = 15. Skin: Warm, dry, moderate pallor noted. Bruising noted starting at the right elbow all the way down extending to the right hand. Patient states that she has been crawling on the carpet Head: Normocephalic, atraumatic Neck: Supple, trachea mid-line, no tenderness, no lymphadenopathy. No cervical spinal tenderness. The patient has no step-offs or crepitus noted Eyes: PERRLA, EOMI ENT: No dunn sign, no raccoon eyes, no blood in posterior oropharynx, oral mucosa is very dry Cardiovascular: Regular Rate and Rhythm, normal peripheral perfusion Respiratory: no distress, no accessory muscle use, no obvious wheezing Chest Wall: no tenderness, no flail chest, contusion, abrasion, or signs of trauma. Back: Back has no evidence of trauma, including contusion, abrasion, swelling or ecchymosis. The patient had no evidence of step-offs or crepitus noted. No tenderness to palpation. Musculoskeletal: Left upper left lower extremity exam benign. No external signs of injury no pain with range of motion. Right upper extremity: Patient does have some bruising noted to the right forearm wrist and hand. There is some generalized tenderness along the forearm into that wrist. Right lower extremity: Patient does have externally rotated and shortened extremity. She does complain of tenderness to palpation diffusely about that right hip with a lot of swelling noted here as well. Severe pain with any minimal range of motion with the right hip. No focal tenderness to the remainder of the femur knee tibia-fibula ankle or foot which is neurovascularly intact. GI: Soft, no tenderness to palpation, no masses appreciated. No rebound, guarding, or rigidity noted. Neurological: A&O, normal equal leaf conditioner strength, normal speech, normal coordination, normal motor, normal sensory. Psychiatric: Cooperative Procedure The affected extremity was immobilized. Cast padding was used to wrap the extremity. A volar wrist splint was applied by ER PA using orthoglass. The patient tolerated this procedure well. Extremity was examined after application and was found to be neurovascularly intact distally. Medical Decision Making Workup in the ER has been reviewed and noted. CT of the brain and cervical spine read by the radiologist as no acute pathology. CT of the chest abdomen pelvis also read by the radiologist there were some positive findings in the spine unclear if this was acute or chronic. Trauma was consulted did come to see the patient and determined that there was no acute interventions needed for spinal findings. Patient did have fracture of the right distal radius and ulna and orthopedics was consulted. Patient was also found to have right intertrochanteric hip fracture is treated here with 2 L IV fluids and given morphine and Zofran for pain. Patient is admitted to the service of trauma for further evaluation and treatment. She is also found to have elevated lipase and findings consistent with pancreatitis. It does insole lip turner that the patient drinks at least 6 drinks of alcohol per day. Assessment/Plan Alcohol abuse (F10.10: Alcohol abuse, uncomplicated) Colles' fracture (S52.478W: Colles' fracture of unspecified radius, initial encounter for closed fracture) Hip fracture, right (S72.001A: Fracture of unspecified part of neck of right femur, initial encounter for closed fracture) Pancreatitis, acute (K85.90: Acute pancreatitis without necrosis or infection, unspecified) Rhabdomyolysis (M62.82: Rhabdomyolysis) Orders: morphine, 4 mg = 2 mL, Injection, IV Push, Once, Stop date 10/08/23 12:02:00 EDT, S (more content not included)... Normal [facility] Comment on above: Result Comment: Elec tronically Signed By: Rigo Anderson DO\.br\Date and Time Signed: 10/08/23 14:31 EDT ED Patient Education Noteon 10-08-2023 ED Patient Education Note [facility] [facility] ED Patient Summaryon 024 ED Patient Summary (Inserted Image. Patricia ble to display) [place] [id number] Patient Discharge Instructions Person Information Name: CATHERINE ADAMSON Age: 63 Years Arrival Date: 10/08/2023 11:57:18 Discharge Diagnosis: Alcohol abuse; Colles' fracture; Hip fracture, right; Pancreatitis, acute; Rhabdomyolysis Primary Care Physician: XIMENA ASTUDILLO MD Provider Information Primary Provider: Rigo Anderson DO [employer] Athlete:None The exam and treatment you received in the Emergency Department were for an urgent problem and are not intended as complete care. It is important that you follow up with a doctor, nurse practitioner, or physician?s assistant real estate manager for ongoing care. If your symptoms become worse or you do not improve as expected and you are unable to reach your usual health care provider, you should return to the Emergency Department. We are available 24 hours a day. CATHERINE ADAMSON has been given the following list of patient education materials, prescriptions and follow-up instructions: Follow-up Instructions: In the event that this physician does not participate in your insurance network, please consult with your insurance company to find a nearby participating provider. Patient Education Materials: A MESSAGE TO ALL PATIENTS REGARDING OPIOIDS PRESCRIPTION OPIOIDS: WHAT YOU NEED TO KNOW Prescription opioids can be used to help relieve mssiyryn-cz-frhabo pain and are often prescribed following a surgery or injury, or for certain health conditions. These medications can be an important part of the treatment but also come with serious risks. It is important to work with your healthcare provider to make sure you are getting the safest, most effective care. WHAT ARE THE RISKS AND SIDE EFFECTS OF OPIOID USE? Prescription opioids carry serious risks of addiction and overdose, especially with prolonged use. An opioid overdose, often marked by slowed breathing, can cause sudden . The use of prescription opioids can have a number of side effects as well, even when taken as directed: ? Tolerance?meaning you might need to take more of the medication for the same pain relief ? Physical dependence?meaning you have symptoms of withdrawal when a medication is stopped ? Increased sensitivity to pain ? Constipation ? Nausea, vomiting, and dry mouth ? Sleepiness and dizziness ? Confusion ? Depression ? Low levels of testosterone that can result in lower sex drive, energy, and strength ? Itching and sweating RISKS ARE GREATER WITH: ? History of drug misuse, substance use disorder, or overdose ? Mental health conditions (such as depression or anxiety) ? Sleep apnea ? Older age (65 years and older) ? Avoid alcohol while taking prescription opioids. Also, unless specifically advised by your health care provider, medications to avoid include: ? Benzodiazepines (such as Xanax or Valium) ? Muscle relaxants (such as Soma or Flexeril) ? Hypnotics (such as Ambien or Lunesta) ? Other prescription opioids KNOW YOUR OPTIONS Talk to your health care provider about ways to manage your pain that don?t involve prescription opioids. Some of these options may actually work better and have fewer risks and side effects. Options may include: ? Pain relievers such as acetaminophen, ibuprofen, and naproxen ? Some medication that are also used for depression or seizures ? Physical therapy and exercise ? Cognitive behavioral therapy, a psychological, goal-directed approach, in which patients learn how to modify physical, behavioral, and emotional triggers of pain and stress. IF YOU ARE PRESCRIBED OPIOIDS FOR PAIN: ? Never take opioids in greater amounts or more often than prescribed. ? Follow up with your primary health care provider. o Work together to create a plan on how to manage your pain. o Talk about ways to help manage your pain that don?t involve prescription opioids. o Talk about any and all concerns and side effects. ? Help prevent misuse and abuse o Never sell or share prescription opioids. o Never use another person?s prescription opioids. ? Store prescription opioids in a secure place and out of reach of others (this may include visitors, children, friends, and family). ? Safely dispose of unused prescription opioids: Find your community drug take-back program or your pharmacy mail-back program, or flush them down the toilet, following guidance from the Food and Drug Administration (www.fda.gov/Drugs/ResourcesFo rYou). ? Visit www.cdc.gov/drugoverdose to learn about the risks of opioids abuse and overdose. ? If you believe you may be struggling with addiction, tell your health healthcare administration internship and ask for guidance or call [facility] National Helpline at 2-955-254-PIEK. z Source: [place] Department of Health and Human Services/Center for Disease Control & Prevention [facility] (more content not included)... Normal [facility] Ethanolon 10-08-2023 Ethanol Lvl <10 Normal <=11 [facility] Comment on above: Performed By: #### 2 [id number] #### [facility] Laboratory [address] [place] [address] HEMATOLOGYOrdered By: SYSTEM SYSTEM on 10-08-2023 RBC size Nom (Bld) NORMAL *NA* (10/08/23 12:00 PM) Invalid Interpretation Code Remisol Heme Toxic granules LM Ql (Bld) PRESENT *NA* (10/08/23 12:00 PM) Invalid Interpretation Code Remisol Heme Hep Func PanelOrdered By: [employer] SYSTEM on 10-08-2023 Albumin [Mass/Vol] 2.9 g/dL Low 3.3 - 5.0 gm/dL Remisol Chem Comment on above: Performed By: #### 2 [id number] #### [facility] Laboratory [address] [place] [address] Bilirubin [Mass/Vol] 0.6 mg/dL Normal 0.0 - 1.1 mg/dL Remisol Chem Comment on above: Performed By: #### 2 [id number] #### [facility] [place] Laboratory [address] [place] [address] Bilirubin.direct [Mass/Vol] 0.2 mg/dL Normal 0.0 - 0.4 mg/dL Remisol Chem Comment on above: Performed By: #### 2 [id number] #### [facility] Laboratory [address] [place] [address] Bilirubin.indirect [Mass or moles/Vol] 0.4 mg/dL Normal 0.1 - 0.9 mg/dL Remisol Chem Comment on above: Performed By: #### 2 [id number] #### [facility] Laboratory [address] [place] [address] Globulin (S) [Mass/Vol] 3.0 g/dL Normal 1.4 - 4.0 gm/dL Remisol Chem Comment on above: Performed By: #### 2 [id number] #### [facility] Laboratory [address] [place] [address] Protein [Mass/Vol] 5.9 g/dL Low 6.0 - 7.8 gm/dL Remisol Chem Comment on above: Performed By: #### 2 [id number] #### [facility] Laboratory [address] [place] [address] Hep Func Panelon 10-08-2023 Albumin/Globulin (S) [Mass conc ratio] 1.0 Low 1.1-2.2 [facility] Comment on above: Performed By: #### 2 [id number] #### [facility] Laboratory [address] [place] [address] ALP [Catalytic activity/Vol] 106 Int._Unit/L High 21-98 [facility] Comment on above: Performed By: #### 2 [id number] #### [facility] Laboratory [address] [place] [address] ALT No additional P-5'-P [Catalytic activity/Vol] 35 Int._Unit/L Normal 6-46 [facility] Comment on above: Performed By: #### 2 [id number] #### [facility] Laboratory [address] [place] [address] AST [Catalytic activity/Vol] 65 Int._Unit/L High 5-43 [facility] Comment on above: Performed By: #### 2 [id number] #### [facility] Laboratory [address] [place] [address] Lactic AcidOrdered By: [employer] on 10-08-2023 Lactic Acid Lvl 1.9 mmol/L Normal 0.5 - 2.2 mmol/L Remisol Chem Comment on above: Performed By: #### 2 [id number] #### [facility] Laboratory [address] [place] [address] Lipase LevelOrdered By: SYST EM SYSTEM on 10-08-2023 Lipase [Catalytic activity/Vol] 256 U/L High 13 - 58 unit/L Remisol Chem Comment on above: Performed By: #### 2 [id number] #### [facility] Laboratory [address] [place] [address] Magnesiumon 10-08-2023 Magnesium [Mass/Vol] 1.8 mg/dL Normal 1.3-2.4 [facility] Comment on above: Performed By: #### 2 [id number] #### [facility] Laboratory [address] [place] [address] Monitor Recordon 10-08-2023 Monitor Record [id number] Normal [facility] Monitor Record [id number] Normal [facility] No Panel InformationOrdered By: ANGPROCESSSERVER MICROBIOLOGY on 10-08-2023 Blood Culture Charcoal No growth at 4 days. Final to follow at 7 days. [facility] Blood Culture Charcoal No growth at 4 days. Final to follow at 7 days. [facility] PT & PTTon 10-08-2023 aPTT Coag (PPP) [Time] 47.8 second(s) High 25.1-36.5 [facility] Comment on above: Result Comment: Para meter 15 days - 4 weeks 1 - 5 months 6 - 11 months 1 - 5 years 6 - 10 years 11 - 17 years PTT Mean: 35.4 (27.6-45.6) Mean: 33.5 (24.8-40.7) Mean: 32.4 (25.1-40.7) Mean: 31.6 (24.0-39.2) Mean: 31.6 (26.9-38.7) Mean: 31.0 (24.6-38.4) Pediatric Reference ranges were obtained from a study by martin Conner al. prepared from 1437 samples obtained at 7 different centers using the same coagulation reagent and instrumentation as [facility]. Currently there are no coagulation studies available worldwide for children to 14 days, and no normal ranges. Heparin therapeutic range (represented by Anti-Factor Xa activity of 0.2 - 0.4 U/mL) corresponds to PTT of 56.6 - 109.0 sec. Performed By: #### 1 [id number] #### [facility] Laboratory [address] [place] [address] INR Coag (PPP) [Relative time] 1.10 {INR} Invalid Interpretation Code [facility] Comment on above: Result Comment: INR results are specifically intended to assess patients stabilized on long-term Anticoagulation therapy suggested INR?s ?Less Intensive Anticoagulation? 2.0 ? 3.0 Conventional Range 3.0 ? 4.5 Performed By: #### 1 [id number] #### [facility] Laboratory [address] [place] [address] PT Coag (PPP) [Time] 12.3 second(s) Normal 9.4-12.5 [facility] Comment on above: Result Comment: 15 d ays - 4 weeks 1 - 5 months 6 -11 months 1 ? 5 years 6 ? 10 years 11 -17 years Mean: 11.2 (9.5 ? 12.6) Mean: 11.0 (9.7 ? 12.8) Mean: 11.0 (9.8 ? 13.0) Mean: 11.3 (9.9 ? 13.4) Mean: 11.7 (10.0 ? 14.6) Mean: 11.8 (10.0 - 14.1) Pediatric Reference ranges were obtained from a study by martin Conner al. prepared from 1437 samples obtained at 7 different centers using the same coagulation reagent and instrumentation as [facility]. Currently there are no coagulation studies available worldwide for children to 14 days, and no normal ranges. Performed By: #### 1 [id number] #### [facility] Laboratory [address] [place] [address] Pre-Arrival Noteon 4 Pre-Arrival Note Pre-Arrival Summary Name: , [facility] Current Date: 10/08/2023 11:57:48 EDT Gender: Female Date of : Age: 63 Pre-Arrival Type: EMS ETA: 10/08/2023 12:18:00 EDT Primary Care Physician: Presenting Problem: fell , R hip injury Pre-Arrival User: Jayla Sharp RN Referring Source: Location: Completion Date/Time: 10/08/2023 11:49:00 [facility] Emergency Department Pre-Hospital Report Form Vital Signs: 160/64; 125; 94% on 4L Pre-Hospital Report: pt fell on , found today. R hip injury, + anticoags. A/Ox3. Treatment in Route: 18 L AC Response to Treatment: Misc. Issues: Normal [facility] Troponinon 10-08-2023 Troponin 26.70 pg/mL Normal 10.10-27.1 0 [facility] Comment on above: Result Comment: The 95% CI (Confidence Interval) PPV (Positive Predictive Value) for myocardial infarction in females is 38 pg/mL, in males 51 pg/mL. The results should be used in conjunction with clinical conditions of myocardial infarction. (Access High Sensitivity Troponin I Instructions For Use, Graciela Desean, December 2017) Performed By: #### 2 [id number] #### [facility] Laboratory [address] [place] [address] U Drug Screenon 10-08-2023 Amphetamines Screen method >1000 ng/mL Ql (U) Negative Normal NEGATIVE [facility] Comment on above: Result Comment: Nega tive Cutoff: <1000 ng/mL Performed By: #### 2 [id number] #### [facility] Laboratory [address] [place] [address] Barbiturates Screen Ql (U) Negative Normal NEGATIVE [facility] Comment on above: Result Comment: Nega tive Cutoff: <200 ng/mL Performed By: #### 2 [id number] #### [facility] Laboratory [address] [place] [address] Benzodiazepines Ql (U) Negative Normal NEGATIVE [facility] Comment on above: Result Comment: Nega tive Cutoff: <200 ng/mL Performed By: #### 2 [id number] #### [facility] Laboratory [address] [place] [address] Cannabinoids Screen Ql (U) Positive Abnormal NEGATIVE [facility] Comment on above: Result Comment: Crit ical Result Verified by Repeat Analysis No Confirmation Requested by Physician Unconfirmed by an Alternate Method Called to Anna sam by [id number] Negative Cutoff: <50 ng/mL Performed By: #### 2 [id number] #### [facility] Laboratory [address] [place] [address] Cocaine Ql (U) Negative Normal NEGATIVE [facility] Comment on above: Result Comment: Nega tive Cutoff: <300 ng/mL Performed By: #### 2 [id number] #### [facility] Laboratory [address] [place] [address] Opiates Screen Ql (U) Positive Abnormal NEGATIVE [facility] Comment on above: Result Comment: Crit ical Result Verified by Repeat Analysis Called to Anna Sam In ER by [id number] No Confirmation Requested by Physician Unconfirmed by an Alternate Method Negative Cutoff: <300 ng/mL Performed By: #### 2 [id number] #### [facility] Laboratory [address] [place] [address] Phencyclidine Screen method >25 ng/mL Ql (U) Negative Normal NEGATIVE [facility] Comment on above: Result Comment: Nega tive Cutoff: <25 ng/mL These drug screen results are to be used for medical (i.e., treatment) purposes only. Unconfirmed drug screening results must not be used for non-medical purposes (e.g., employment testing, legal testing). Performed By: #### 2 [id number] #### [facility] Laboratory [address] [place] [address] U Fentanyl Positive Abnormal NEGATIVE [facility] Comment on above: Result Comment: Crit ical Result Verified by Repeat Analysis No Confirmation Requested by Physician Unconfirmed by an Alternate Method Called to Anna Kaushal Negative Cutoff: <5 ng/mL These drug screen results are to be used for medical (i.e., treatment) purposes only. Unconfirmed drug screening results must not be used for non-medical purposes (e.g., employment testing, legal testing). Performed By: #### 2 [id number] #### [facility] Laboratory [address] [place] [id number] UA with Cult Rflxon 10-08-19 24 Bacteria Auto Ql (U) 4+ /HPF Abnormal Trace [facility] Comment on above: Performed By: #### 4 [id number] #### [facility] Laboratory [address] [place] [address] Clarity (U) Ex.Turbid Abnormal Clear [facility] Comment on above: Performed By: #### 4 [id number] #### [facility] Laboratory [address] [place] [address] Color (U) [place] Abnormal Yellow [facility] Comment on above: Result Comment: Micr oscopic readings are only performed on those samples that meet specific criteria set forth by [facility] Laboratory. Performed By: #### 4 [id number] #### [facility] Laboratory [address] [place] [address] Hemoglobin Auto test strip (U) [Mass/Vol] 3+ mg/dL Abnormal Negative [facility] Comment on above: Performed By: #### 4 [id number] #### [facility] Laboratory [address] [place] [address] Ketones Auto test strip Ql (U) 2+ mg/dL Abnormal Negative [facility] Comment on above: Performed By: #### 4 [id number] #### [facility] Laboratory [address] [place] [address] Leukocyte clumps Auto (Urine sed) [#/Area] >30 Abnormal [facility] Comment on above: Performed By: #### 4 [id number] #### [facility] Laboratory [address] [place] [address] Leukocyte esterase Auto test strip Ql (U) 500 Nima/uL Abnormal Negative [facility] Comment on above: Performed By: #### 4 [id number] #### [facility] Laboratory [address] [place] [address] Mucus Auto Ql (U) 1+ CD:[id number] Abnormal Negative [facility] Comment on above: Performed By: #### 4 [id number] #### [facility] Laboratory [address] [place] [address] Nitrite Auto test strip Ql (U) 2+ mg/dL Abnormal Negative [facility] Comment on above: Performed By: #### 4 [id number] #### [facility] Laboratory [address] [place] [address] pH (U) 6.0 [pH] Invalid Interpretation Code 5.0-9.0 [facility] Comment on above: Performed By: #### 4 [id number] #### [facility] Laboratory [address] [place] [address] Protein Ql (U) 2+ mg/dL Abnormal Negative [facility] Comment on above: Performed By: #### 4 [id number] #### [facility] Laboratory [address] [place] [address] RBC Ql (U) >75 Abnormal 0-3 [facility] Comment on above: Performed By: #### 4 [id number] #### [facility] Laboratory [address] [place] [address] Specific gravity (U) [Rel density] 1.018 Invalid Interpretation Code 1.005-1.03 0 [facility] Comment on above: Performed By: #### 4 [id number] #### [facility] Laboratory [address] [place] [address] WBC Auto (Urine sed) [#/Area] >75 Abnormal 0-5 [facility] Comment on above: Performed By: #### 4 [id number] #### [facility] Laboratory [address] [place] [address] Type of Urine collection method Frank[place] Normal [facility] Comment on above: Performed By: #### 4 [id number] #### [facility] Laboratory [address] [place] [address] UA with Cult RflxOrdered By: SYSTEM SYSTEM on 10-08-2023 Bilirubin Ql (U) Negative Normal Negativemg /dL [facility] UA Auto SS Comment on above: Performed By: #### 4 [id number] #### [facility] Laboratory [address] [place] [address] Glucose Ql (U) Negative Normal Negativemg /dL [facility] UA Auto SS Comment on above: Performed By: #### 4 [id number] #### [facility] Laboratory [address] [place] [address] Urobilinogen (U) [Mass/Vol] Negative Normal Negativemg /dL [facility] UA Auto SS Comment on above: Performed By: #### 4 [id number] #### [facility] Laboratory [address] [place] [address] URINALYSISOrdered By: SYSTEM SYSTEM on 10-08-2023 Bacteria Auto Ql (U) 4+ /HPF Invalid Interpretation Code Trace/HPF [facility] UA Auto SS Clarity (U) Ex.Turbid *ABN* (10/08/23 2:00 PM) Invalid Interpretation Code Clear [facility] UA Auto SS Color (U) [place] 3 *ABN* (10/08/23 2:00 PM) Invalid Interpretation Code Yellow [facility] UA Auto SS Comment on above: Interpretive Data: M icroscopic readings are only performed on those samples that meet specific criteria set forth by [facility] Laboratory. Hemoglobin Auto test strip (U) [Mass/Vol] 3+ mg/dL Invalid Interpretation Code Negativemg /dL [facility] UA Auto SS Ketones Auto test strip Ql (U) 2+ mg/dL Invalid Interpretation Code Negativemg /dL [facility] UA Auto SS Leukocyte clumps Auto (Urine sed) [#/Area] >30 graded/HPF Invalid Interpretation Code [facility] UA Auto SS Leukocyte esterase Auto test strip Ql (U) 500 Nima/uL Nima/uL Invalid Interpretation Code NegativeLe u/uL [facility] UA Auto SS Mucus Auto Ql (U) 1+ graded/LPF Invalid Interpretation Code Negativegr aded/LPF [facility] UA Auto SS Nitrite Auto test strip Ql (U) 2+ mg/dL Invalid Interpretation Code Negativemg /dL [facility] UA Auto SS pH (U) 6.0 *NA* (10/08/23 2:00 PM) Invalid Interpretation Code 5.0 - 9.0 [facility] UA Auto SS Protein Ql (U) 2+ mg/dL Invalid Interpretation Code Negativemg /dL [facility] UA Auto SS RBC Ql (U) >75 graded/HPF Invalid Interpretation Code 0-3graded/ HPF [facility] UA Auto SS Specific gravity (U) [Rel density] 1.018 *NA* (10/08/23 2:00 PM) Invalid Interpretation Code 1.005 - 1.030 [facility] UA Auto SS WBC Auto (Urine sed) [#/Area] >75 graded/HPF Invalid Interpretation Code 0-5graded/ HPF [facility] UA Auto SS URINALYSISOrdered By: Rigo clemente on 10-08-2023 UA Spec Desc Frank[place] (10/08/23 2:00 PM) Normal [facility] UA Auto SS Work Phone: XR Forearm 2 Views Righton 0 10-08-2023 XR Forearm 2 Views Right Exam Date/Time: 10/08/2023 12:58 EDT Reason for Exam: Pain, Traumatic Report IMPRESSION: ACUTE FRACTURES OF THE DISTAL RADIUS AND ULNA. EXAMINATION: XR Forearm 2 Views Right HISTORY: Wrist pain after a fall COMPARISON: None available TECHNIQUE: AP and lateral views of the radius and ulna FINDINGS: Mildly displaced fracture of the distal radial metaphysis appearing to extend into the distal radioulnar joint. Mildly displaced fracture of the ulnar styloid process. Soft tissue edema of the wrist. Ordering Provider: Rigo Anderson FINAL REPORT Dictated: 10/08/2023 1:23 pm Talon Rose DO Signed (Electronic Signature): 10/08/2023 1:23 pm Signed by: Talon Rose DO Transcribed by: RICHARD Technologist: VERONICA Technical Comments Radiation Dose: Ka,r in mGy = na DAP = na Normal [facility] [place] XR Hip 2-3 Views Right + Pel vison 10-08-2023 XR Hip 2-3 Views Right + Pelvis Exam Date/Time: 10/08/2023 12:58 EDT Reason for Exam: Pain, Traumatic Report IMPRESSION: COMMINUTED RIGHT INTERTROCHANTERIC FRACTURE. EXAMINATION: XR Hip 2-3 Views Right + Pelvis HISTORY: Hip pain COMPARISONS: None available TECHNIQUE: Frontal and lateral views of the hip. FINDINGS: Acute comminuted and angulated right intertrochanteric fracture. No hip dislocation. Mild degenerative changes of both hips. Degenerative changes of the lower lumbar spine. Soft tissues are within normal limits. Ordering Provider: Rigo Anderson FINAL REPORT Dictated: 10/08/2023 1:21 pm Talno Rose DO Signed (Electronic Signature): 10/08/2023 1:21 pm Signed by: Talon Rose DO Transcribed by: RICHARD Technologist: VERONICA Technical Comments Radiation Dose: Ka,r in mGy = na DAP = na Normal [facility] [place] XR Wrist 3+ Views Righton XR Wrist 3+ Views Right Exam Date/Time: 10/08/2023 12:58 EDT Reason for Exam: Pain, Traumatic Report IMPRESSION: ACUTE FRACTURES OF THE DISTAL RADIUS AND ULNA. EXAM: XR Wrist 3+ Views Right HISTORY: Wrist pain since a fall COMPARISON: None available TECHNIQUE: AP, lateral, oblique and scaphoid views of the wrist obtained. FINDINGS: Mildly displaced fracture of the distal radial metaphysis extending into the distal radioulnar joint. Mildly displaced fracture of the ulnar styloid process. Carpal and radiocarpal alignment is satisfactory. Degenerative changes of the wrist most significant at the first carpometacarpal joint. Soft tissue edema of the wrist. Ordering Provider: Rigo Anderson FINAL REPORT Dictated: 10/08/2023 1:25 pm Talon Rose DO Signed (Electronic Signature): 10/08/2023 1:25 pm Signed by: Talon Rose DO Transcribed by: RICHARD Technologist: VERONICA Technical Comments Radiation Dose: Ka,r in mGy = na DAP = na Normal [facility] [place] eGFRon 10-08-2023 eGFR 99 mL/min/1.73 m2 Normal >=59 [facility] [place] Comment on above: Order Comment: Order added by Discern Expert. Performed By: #### 1 [id number] #### [address] [address] BNPon 08-19-2022 Natriuretic peptide B (Bld) [Mass/Vol] 233.0 pg/mL Normal <=900.0 [facility] Comment on above: Performed By: #### L IVER #### [facility] [address] [place] [address] Dr. Shine Del Rosario CARDIAC WILD ADMITon 023 CK [Catalytic activity/Vol] 59 U/L Normal 26-192 The [facility] Comment on above: Performed By: #### L IVER #### [facility] [address] [place] [address] Dr. Shine Del Rosario CK.MB [Mass/Vol] ng/mL Normal <=3.60 The [facility] Comment on above: Performed By: #### L IVER #### [facility] [address] [place] [address] Dr. Shine Del Rosario HSTROP 6.4 pg/mL Normal 4.0-51.3 The [facility] Comment on above: Result Comment: CUT- OFF POINTS HAVE BEEN ESTABLISHED BASED ON THE FOURTH UNIVERSAL DEFINITIONS OF MYOCARDIAL INFARCTION. THE UPPER REFERENCE LIMIT (URL) OF TROPONIN, DEFINED THE 99TH PERCENTILE OF cTnI DISTRIBUTION IN A REFERENCE POPULATION, HAS BEEN CONFIRMED THE DECISION THRESHOLD FOR SC DIAGNOSIS. Performed By: #### L IVER #### [facility] [address] [place] [address] Dr. Shine Del Rosario YANG 70 ng/mL Normal 9-82 [facility] Comment on above: Performed By: #### L IVER #### [facility] [address] [place] [address] Dr. Shine Del Rosario CBC W MANUAL DIFFon 08-20-19 23 ATYPICAL LYMPH # Normal [facility] Comment on above: Performed By: #### P HVEN #### [facility] [address] [place] [address] Dr. Shine Del Rosario ATYPICAL LYMPH % Normal [facility] Comment on above: Performed By: #### P HVEN #### [facility] [address] [place] [address] Dr. Shine Del Rosario BAND # Normal 0.0-0.3 The [facility] Comment on above: Performed By: #### P HVEN #### [facility] [address] [address] [address] Shine Del Rosario BAND % Normal 0-5 The [facility] Comment on above: Performed By: #### P HVEN #### [facility] [address] [place] [address] Dr. Shine Del Rosario BASOM # 0.00 103/ul Normal 0.00-0.10 [facility] Comment on above: Performed By: #### P HVEN #### [facility] [address] [place] [address] Dr. Shine Del Rosario BASOM % 0.0 % Critically low 0.2-2.0 [facility] Comment on above: Performed By: #### P HVEN #### [facility] [address] [place] [address] Dr. Shine Del Rosario BLAST # Normal [facility] Comment on above: Performed By: #### P HVEN #### [facility] [address] [address] [address] hSine Del Rosario BLAST % Normal [facility] Comment on above: Performed By: #### P HVEN #### [facility] [address] [place] [address] Dr. Shine Del Rosario CORRECTED WBC Normal 4.0-11.0 [facility] Comment on above: Performed By: #### P HVEN #### [facility] [address] [address] [address] Shine Del Rosario EOS # 0.50 103/ul Normal 0.00-0.70 The [facility] Comment on above: Performed By: #### P HVEN #### [facility] [address] [place] [address] Dr. Shine Del Rosario EOS% 7.0 % Normal 0.9-7.0 [facility] Comment on above: Performed By: #### P HVEN #### [facility] [address] [place] [address] Dr. Shine Del Rosario HCT 37.0 % Normal 36.0-48.0 The [facility] Comment on above: Performed By: #### P HVEN #### [facility] [address] [address] [address] Shine Del Rosario HGB 12.3 g/dl Normal 12.0-16.0 [facility] Comment on above: Performed By: #### P HVEN #### [facility] [address] [address] [address] Shine Del Rosario LYMPHM # 0.58 103/ul Critically low 1.20-3.80 [facility] Comment on above: Performed By: #### P HVEN #### [facility] [address] [place] [address] Dr. Shine Del Rosario LYMPHM% 8.0 % Critically low 20.5-60.0 [facility] Comment on above: Performed By: #### P HVEN #### [facility] [address] [place] [address] Dr. Shine Del Rosario MCH 32.5 pg Normal 26.7-34.0 [facility] Comment on above: Performed By: #### P HVEN #### [facility] [address] [place] [address] Dr. Shine Del Rosario MCHC 33.2 g/dl Normal 29.9-35.2 [facility] Comment on above: Performed By: #### P HVEN #### [facility] [address] [place] [address] Dr. Shine Del Rosario MCV 97.6 fL Normal 81.0-99.0 [facility] Comment on above: Performed By: #### P HVEN #### [facility] [address] [place] [address] Dr. Shine Del Rosario METAMYELOCYTE # Normal [facility] Comment on above: Performed By: #### P HVEN #### [facility] [address] [place] [address] Dr. Shine Del Rosario METAMYELOCYTE % Normal [facility] Comment on above: Performed By: #### P HVEN #### [facility] [address] [place] [address] Dr. Shine Del Rosario MONOM# 0.86 103/ul Critically high 0.30-0.80 The [facility] Comment on above: Performed By: #### P HVEN #### [facility] [address] [address] [address] Shine Del Rosario MONOM% 12.0 % Normal 1.7-12.0 [facility] Comment on above: Performed By: #### P HVEN #### [facility] [address] [place] [address] Dr. Shine Del Rosario MPV 8.9 fL Critically low 9.5-13.5 [facility] Comment on above: Performed By: #### P HVEN #### [facility] [address] [place] [address] Dr. Shine Del Rosario MYELOCYTE # Normal [facility] Comment on above: Performed By: #### P HVEN #### [facility] [address] [place] [address] Dr. Shine Del Rosario MYELOCYTE % Normal [facility] Comment on above: Performed By: #### P HVEN #### [facility] [address] [place] [address] Dr. Shine Del Rosario NRBC Normal [facility] Comment on above: Performed By: #### P HVEN #### [facility] [address] [place] [address] Dr. Shine Del Rosario PLT 288 103/ul Normal 150-450 [facility] Comment on above: Performed By: #### P HVEN #### [facility] [address] [place] [address] Dr. Shine Del Rosario RBC 3.79 106/ul Critically low 4.20-5.40 [facility] Comment on above: Performed By: #### P HVEN #### [facility] [address] [place] [address] Dr. Shine Del Rosario RDW 11.3 % Normal 11.0-15.0 [facility] Comment on above: Performed By: #### P HVEN #### [facility] [address] [place] [address] Dr. Shine Del Rosario SEG # 5.26 103/ul Normal 1.40-6.50 [facility] Comment on above: Performed By: #### P HVEN #### [facility] [address] [place] [address] Dr. Shine Del Rosario SEG % 73.0 % Normal 43.0-75.0 [facility] Comment on above: Performed By: #### P HVEN #### [facility] [address] [place] [address] Dr. Shine Del Rosario WBC 7.2 103/ul Normal 4.0-11.0 [facility] Comment on above: Performed By: #### P HVEN #### [facility] [address] [place] [address] Dr. Shine Del Rosario PROF 14(COMP METB)on 023 Albumin [Mass/Vol] 3.4 g/dL Normal 3.4-5.0 [facility] Comment on above: Performed By: #### L IVER #### [facility] [address] [place] [address] Dr. Shine Del Rosario Albumin/Globulin [Mass ratio] 0.9 {ratio} Normal [facility] Comment on above: Performed By: #### L IVER #### [facility] [address] [place] [address] Dr. Shine Del Rosario ALP [Catalytic activity/Vol] 152 U/L Critically high 46-116 [facility] Comment on above: Performed By: #### L IVER #### [facility] [address] [place] [address] Dr. Shine Del Rosario ALT [Catalytic activity/Vol] 126 U/L Critically high 14-59 The [facility] Comment on above: Performed By: #### L IVER #### [facility] [address] [place] [address] Dr. Shine Del Rosario Anion gap [Moles/Vol] 15.5 mmol/L Normal [facility] Comment on above: Performed By: #### L IVER #### [facility] [address] [place] [address] Dr. Shine Del Rosario AST [Catalytic activity/Vol] 158 U/L Critically high 15-37 [facility] Comment on above: Performed By: #### L IVER #### [facility] [address] [address] [address] Shine Del Rosario Bilirubin [Mass/Vol] 1.3 mg/dL Critically high 0.2-1.0 [facility] Comment on above: Performed By: #### L IVER #### [facility] [address] [address] [address] Shine Del Rosario Calcium [Mass/Vol] 9.5 mg/dL Normal 8.5-10.1 The [facility] Comment on above: Performed By: #### L IVER #### [facility] [address] [place] [address] Dr. Shine Del Rosario Chloride [Moles/Vol] 95 mmol/L Critically low 98-107 [facility] Comment on above: Performed By: #### L IVER #### [facility] [address] [place] [address] Dr. Shine Del Rosario CO2 [Moles/Vol] 22.0 mmol/L Normal 21.0-32.0 [facility] Comment on above: Performed By: #### L IVER #### [facility] [address] [place] [address] Dr. Shine Del Rosario Creatinine [Mass/Vol] 0.65 mg/dL Normal 0.55-1.02 [facility] Comment on above: Performed By: #### L IVER #### [facility] [address] [place] [address] Dr. Shine Del Rosario EGFR-AF BANGLADESHI >60 Normal >=60 The [facility] Comment on above: Performed By: #### L IVER #### [facility] [address] [place] [address] Dr. Shine Del Rosario EGFR-NON AF BANGLADESHI >60 Normal >=60 The [facility] Comment on above: Performed By: #### L IVER #### [facility] [address] [place] [address] Dr. Shnie Del Rosario Globulin (S) [Mass/Vol] 3.9 g/dL Normal The [facility] Comment on above: Performed By: #### L IVER #### [facility] [address] [address] [address] Shine Del Rosario Glucose [Mass/Vol] 97 mg/dL Normal 74-106 [facility] Comment on above: Performed By: #### L IVER #### [facility] [address] [address] [address] Shine Del Rosario Potassium [Moles/Vol] 4.5 mmol/L Normal 3.5-5.1 [facility] Comment on above: Performed By: #### L IVER #### [facility] [address] [address] [address] Shine Del Rosario Protein [Mass/Vol] 7.3 g/dL Normal 6.4-8.2 [facility] Comment on above: Performed By: #### L IVER #### [facility] [address] [address] [address] Shine Del Rosario Sodium [Moles/Vol] 128 mmol/L Critically low 136-145 [facility] Comment on above: Performed By: #### L IVER #### [facility] [address] [address] [address] Shine Del Rosario Urea nitrogen [Mass/Vol] 5.0 mg/dL Critically low 7.0-18.0 [facility] Comment on above: Performed By: #### L IVER #### [facility] [address] [address] [address] Shine Del Rosario Urea nitrogen/Creatinine [Mass ratio] 7.7 mg/mg Normal The [facility] Comment on above: Performed By: #### L IVER #### [facility] [address] [address] [address] Shine Del Rosario XR CHEST 1 Von 08-19-2022 XR CHEST 1 V EXAMINATION: XR CHES T 1 V HISTORY: SHORTNESS OF BREATH COMPARISON: XR chest 01/19/2022 FINDINGS: LUNGS: No significant pulmonary parenchymal abnormalities. VASCULATURE: No increased pulmonary vasculature. PLEURA: No pneumothorax, effusion, or pleural thickening. CARDIAC: No cardiomegaly or cardiac silhouette abnormality. MEDIASTINUM: No visible mass or adenopathy. BONES: Old, healed right rib fractures. OTHER: Negative. IMPRESSION: 1. No acute cardiopulmonary process. Electronically authenticated by: BEBETO PUTNAM Date: 2022-08-19 10:32 Normal The [facility] BNPon 05-10-2022 Natriuretic peptide B (Bld) [Mass/Vol] 952.0 pg/mL Critically high <=900.0 [facility] Comment on above: Performed By: #### L IVER #### [facility] [address] [place] [address] Dr. Shine Del Rosario CBC AUTO DIFFon 05-10-2022 BASO # 0.1 103/ul Normal 0.0-0.1 [facility] Comment on above: Performed By: #### P TT, PT #### [facility] [address] [place] [address] Dr. Sihne Del Rosario Basophils/100 WBC (Bld) 0.7 % Normal 0.2-2.0 [facility] Comment on above: Performed By: #### P TT, PT #### [facility] [address] [place] [address] Dr. Shine Del Rosario EO # 0.2 103/ul Normal 0.0-0.7 The [facility] Comment on above: Performed By: #### P TT, PT #### [facility] [address] [place] [address] Dr. Shine Del Rosario Eosinophils/100 WBC (Bld) 2.1 % Normal 0.9-7.0 [facility] Comment on above: Performed By: #### P TT, PT #### [facility] [address] [place] [address] Dr. Shine Del Rosario Erythrocyte distribution width (RBC) [Ratio] 12.6 % Normal 11.0-15.0 The [facility] Comment on above: Performed By: #### P TT, PT #### [facility] [address] [place] [address] Dr. Shine Del Rosario Hematocrit (Bld) [Volume fraction] 35.0 % Critically low 36.0-48.0 [facility] Comment on above: Performed By: #### P TT, PT #### [facility] [address] [place] [address] Dr. Shine Del Rosario Hemoglobin (Bld) [Mass/Vol] 11.8 g/dL Critically low 12.0-16.0 [facility] Comment on above: Performed By: #### P TT, PT #### [facility] [address] [place] [address] Dr. Shine Del Rosario IG # 0.04 10e3/ul Critically high 0.00-0.03 [facility] Comment on above: Performed By: #### P TT, PT #### [facility] [address] [place] [address] Dr. Shine Del Rosario IG % 0.5 % Normal 0.0-0.5 [facility] Comment on above: Performed By: #### P TT, PT #### [facility] [address] [place] [address] Dr. Shine Del Rosario LYMPH # 1.2 103/ul Normal 1.2-3.8 [facility] Comment on above: Performed By: #### P TT, PT #### [facility] [address] [place] [address] Dr. Shine Del Rosario Lymphocytes/100 WBC (Bld) 14.2 % Critically low 20.5-60.0 [facility] Comment on above: Performed By: #### P TT, PT #### [facility] [address] [place] [address] Dr. Shine Del Rosario MANUAL DIFF REQ NO Normal The [facility] Comment on above: Performed By: #### P TT, PT #### [facility] [address] [place] [address] Dr. Shine Del Rosario MCH (RBC) [Entitic mass] 33.2 pg Normal 26.7-34.0 The [facility] Comment on above: Performed By: #### P TT, PT #### [facility] [address] [place] [address] Dr. Shine Del Rosario MCHC (RBC) [Mass/Vol] 33.7 g/dL Normal 29.9-35.2 The [facility] Comment on above: Performed By: #### P TT, PT #### [facility] [address] [place] [address] Dr. Shine Del Rosario MCV (RBC) [Entitic vol] 98.6 fL Normal 81.0-99.0 The [facility] Comment on above: Performed By: #### P TT, PT #### [facility] [address] [place] [address] Dr. Shine Del Rosario MONO # 0.8 103/ul Normal 0.3-0.8 The [facility] Comment on above: Performed By: #### P TT, PT #### [facility] [address] [place] [address] Dr. Shine Del Rosario Monocytes/100 WBC (Bld) 9.1 % Normal 1.7-12.0 The [facility] Comment on above: Performed By: #### P TT, PT #### [facility] [address] [place] [address] Dr. Shine Del Rosario NEUT # 6.4 103/ul Normal 1.4-6.5 The [facility] Comment on above: Performed By: #### P TT, PT #### [facility] [address] [place] [address] Dr. Shine Del Rosario Neutrophils/100 WBC (Bld) 73.4 % Normal 43.0-75.0 The [facility] Comment on above: Performed By: #### P TT, PT #### [facility] [address] [place] [address] Dr. Shine Del Rosario Platelet mean volume (Bld) [Entitic vol] 8.7 fL Critically low 9.5-13.5 The [facility] Comment on above: Performed By: #### P TT, PT #### [facility] [address] [place] [address] Dr. Shine Del Rosario PLT 394 103/ul Normal 150-450 The [facility] Comment on above: Performed By: #### P TT, PT #### [facility] [address] [place] [address] Dr. Shine Del Rosario RBC 3.55 106/ul Critically low 4.20-5.40 The [facility] Comment on above: Performed By: #### P TT, PT #### [facility] [address] [address] [address] Shine Del Rosario WBC 8.7 103/ul Normal 4.0-11.0 [facility] Comment on above: Performed By: #### P TT, PT #### [facility] [address] [place] [address] Dr. Shine Del Rosario PROF 14(COMP METB)on 022 Albumin [Mass/Vol] 3.1 g/dL Critically low 3.4-5.0 Th e [facility] Comment on above: Performed By: #### L IVER #### [facility] [address] [place] [address] Dr. Shine Del Rosario Albumin/Globulin [Mass ratio] 0.8 {ratio} Normal [facility] Comment on above: Performed By: #### L IVER #### [facility] [address] [place] [address] Dr. Shine Del Rosario ALP [Catalytic activity/Vol] 167 U/L Critically high 46-116 [facility] Comment on above: Performed By: #### L IVER #### [facility] [address] [place] [address] Dr. Shine Del Rosario ALT [Catalytic activity/Vol] 50 U/L Normal 14-59 [facility] Comment on above: Performed By: #### L IVER #### [facility] [address] [place] [address] Dr. Shine Del Rosario Anion gap [Moles/Vol] 11.6 mmol/L Normal [facility] Comment on above: Performed By: #### L IVER #### [facility] [address] [place] [address] Dr. Shine Del Rosario AST [Catalytic activity/Vol] 46 U/L Critically high 15-37 [facility] Comment on above: Performed By: #### L IVER #### [facility] [address] [place] [address] Dr. Shine Del Rosario Bilirubin [Mass/Vol] 0.7 mg/dL Normal 0.2-1.0 [facility] Comment on above: Performed By: #### L IVER #### [facility] [address] [address] [address] Shine Del Rosario Calcium [Mass/Vol] 9.0 mg/dL Normal 8.5-10.1 [facility] Comment on above: Performed By: #### L IVER #### [facility] [address] [place] [address] Dr. Shine Del Rosario Chloride [Moles/Vol] 100 mmol/L Normal 98-107 The [facility] Comment on above: Performed By: #### L IVER #### [facility] [address] [place] [address] Dr. Shine Del Rosario CO2 [Moles/Vol] 24.7 mmol/L Normal 21.0-32.0 The [facility] Comment on above: Performed By: #### L IVER #### [facility] [address] [place] [address] Dr. Shine Del Rosario Creatinine [Mass/Vol] 0.61 mg/dL Normal 0.55-1.02 The [facility] Comment on above: Performed By: #### L IVER #### [facility] [address] [place] [address] Dr. Shine Del Rosario EGFR-AF BANGLADESHI >60 Normal >=60 The [facility] Comment on above: Performed By: #### L IVER #### [facility] [address] [place] [address] Dr. Shine Del Rosario EGFR-NON AF BANGLADESHI >60 Normal >=60 The [facility] Comment on above: Performed By: #### L IVER #### [facility] [address] [place] [address] Dr. Shine Del Rosario Globulin (S) [Mass/Vol] 3.7 g/dL Normal The [facility] Comment on above: Performed By: #### L IVER #### [facility] [address] [place] [address] Dr. Shine Del Rosario Glucose [Mass/Vol] 98 mg/dL Normal 74-106 The [facility] Comment on above: Performed By: #### L IVER #### [facility] [address] [place] [address] Dr. Shine Del Rosario Potassium [Moles/Vol] 4.3 mmol/L Normal 3.5-5.1 [facility] Comment on above: Performed By: #### L IVER #### [facility] [address] [place] [address] Dr. Shine Del Rosario Protein [Mass/Vol] 6.8 g/dL Normal 6.4-8.2 [facility] Comment on above: Performed By: #### L IVER #### [facility] [address] [place] [address] Dr. Shine Del Rosario Sodium [Moles/Vol] 132 mmol/L Critically low 136-145 Th e [facility] Comment on above: Performed By: #### L IVER #### [facility] [address] [place] [address] Dr. Shine Del Rosario Urea nitrogen [Mass/Vol] 6.0 mg/dL Critically low 7.0-18.0 [facility] Comment on above: Performed By: #### L IVER #### [facility] [address] [place] [address] Dr. Shine Del Rosario Urea nitrogen/Creatinine [Mass ratio] 9.8 mg/mg Normal The [facility] Comment on above: Performed By: #### L IVER #### [facility] [address] [place] [address] Dr. Shine Del Rosario PROTIMEon 05-10-2022 INR Coag (PPP) [Relative time] 0.96 {INR} Normal [facility] Comment on above: Performed By: #### P TT, PT #### [facility] [address] [place] [address] Dr. Shine Del Rosario INR GUIDELINES SEE BELOW Normal The [facility] Comment on above: Result Comment: JUDY RED INR: 2.0 - 3.0 CONDITIONS NOT LISTED BELOW 2.5 - 3.5 FOR PROSTHETIC HEART VALVE REPLACEMENT 2.5 - 3.5 RECURRENT THROMBOSIS Performed By: #### P TT, PT #### [facility] [address] [place] [address] Dr. Shine Del Rosario PT Coag (PPP) [Time] 10.4 s Normal 9.0-11.6 [facility] Comment on above: Performed By: #### P TT, PT #### [facility] [address] [place] [address] Dr. Shine Del Rosario PTTon 05-10-2022 aPTT Coag (Bld) [Time] 42.0 s Critically high 22.3-36.2 [facility] Comment on above: Performed By: #### P TT, PT #### [facility] [address] [place] [address] Dr. Shine Del Rosario US JAC DOP LEG BILon 022 US JAC DOP LEG YUNG EXAMINATION: US JAC DOP LEG YUNG HISTORY: Pain in bilateral lower legs COMPARISON: No relevant comparison available. TECHNIQUE: Grayscale, color and Doppler ultrasound FINDINGS: Region: Bilateral legs Thrombus: None Flow: Normal Compressibility: Normal Augmentation: Normal IMPRESSION: No deep or superficial vein thrombus in the legs *Exam performed in accordance with [facility] practice guidelines- Peripheral venous ultrasound, August 07, 2009. Electronically authenticated by: PAWAN GEORGE Date: 2022-05-10 13:11 Normal The [facility] BNPon 01-19-2022 Natriuretic peptide B (Bld) [Mass/Vol] 175.0 pg/mL Normal <=900.0 The [facility] Comment on above: Performed By: #### C MP, BNP, HSTROPN #### [facility] [address] [place] [address] Dr. Shine Del Rosario CBC AUTO DIFFon 01-19-2022 BASO # 0.1 103/ul Normal 0.0-0.1 [facility] Comment on above: Performed By: #### P TT, PT #### [facility] [address] [place] [address] Dr. Shine Del Rosario Basophils/100 WBC (Bld) 0.9 % Normal 0.2-2.0 The [facility] Comment on above: Performed By: #### P TT, PT #### [facility] [address] [place] [address] Dr. Shine Del Rosario EO # 0.9 103/ul Critically high 0.0-0.7 [facility] Comment on above: Performed By: #### P TT, PT #### [facility] [address] [place] [address] Dr. Shine Del Rosario Eosinophils/100 WBC (Bld) 10.6 % Critically high 0.9-7.0 The [facility] Comment on above: Performed By: #### P TT, PT #### [facility] [address] [place] [address] Dr. Shine Del Rosario Erythrocyte distribution width (RBC) [Ratio] 11.4 % Normal 11.0-15.0 The [facility] Comment on above: Performed By: #### P TT, PT #### [facility] [address] [place] [address] Dr. Shine Del Rosario Hematocrit (Bld) [Volume fraction] 36.9 % Normal 36.0-48.0 The [facility] Comment on above: Performed By: #### P TT, PT #### [facility] [address] [place] [address] Dr. Shine Del Rosario Hemoglobin (Bld) [Mass/Vol] 12.1 g/dL Normal 12.0-16.0 [facility] Comment on above: Performed By: #### P TT, PT #### [facility] [address] [place] [address] Dr. Shine Del Rosario IG # 0.04 10e3/ul Critically high 0.00-0.03 [facility] Comment on above: Performed By: #### P TT, PT #### [facility] [address] [place] [address] Dr. Shine Del Rosario IG % 0.5 % Normal 0.0-0.5 The [facility] Comment on above: Performed By: #### P TT, PT #### [facility] [address] [place] [address] Dr. Shine Del Rosairo LYMPH # 1.7 103/ul Normal 1.2-3.8 The [facility] Comment on above: Performed By: #### P TT, PT #### [facility] [address] [place] [address] Dr. Shine Del Rosario Lymphocytes/100 WBC (Bld) 20.4 % Critically low 20.5-60.0 The [facility] Comment on above: Performed By: #### P TT, PT #### [facility] [address] [place] [address] Dr. Shine Del Rosario MANUAL DIFF REQ NO Normal [facility] Comment on above: Performed By: #### P TT, PT #### [facility] [address] [place] [address] Dr. Shine Del Rosario MCH (RBC) [Entitic mass] 32.8 pg Normal 26.7-34.0 The [facility] Comment on above: Performed By: #### P TT, PT #### [facility] [address] [place] [address] Dr. Shine Del Rosario MCHC (RBC) [Mass/Vol] 32.8 g/dL Normal 29.9-35.2 The [facility] Comment on above: Performed By: #### P TT, PT #### [facility] [address] [place] [address] Dr. Shine Del Rosario MCV (RBC) [Entitic vol] 100.0 fL Critically high 81.0-99.0 [facility] Comment on above: Performed By: #### P TT, PT #### [facility] [address] [place] [address] Dr. Shine Del Rosario MONO # 0.8 103/ul Normal 0.3-0.8 [facility] Comment on above: Performed By: #### P TT, PT #### [facility] [address] [place] [address] Dr. Shine Del Rosario Monocytes/100 WBC (Bld) 9.6 % Normal 1.7-12.0 The [facility] Comment on above: Performed By: #### P TT, PT #### [facility] [address] [place] [address] Dr. Shine Del Rosario NEUT # 4.8 103/ul Normal 1.4-6.5 The [facility] Comment on above: Performed By: #### P TT, PT #### [facility] [address] [place] [address] Dr. Shine Del Rosario Neutrophils/100 WBC (Bld) 58.0 % Normal 43.0-75.0 The [facility] Comment on above: Performed By: #### P TT, PT #### [facility] [address] [address] [address] Shine Del Rosario Platelet mean volume (Bld) [Entitic vol] 8.9 fL Critically low 9.5-13.5 [facility] Comment on above: Performed By: #### P TT, PT #### [facility] [address] [address] [address] Shine Del Rosario PLT 336 103/ul Normal 150-450 The [facility] Comment on above: Performed By: #### P TT, PT #### [facility] [address] [address] [address] Shine Del Rosario RBC 3.69 106/ul Critically low 4.20-5.40 [facility] Comment on above: Performed By: #### P TT, PT #### [facility] [address] [place] [address] Dr. Shine Del Rosario WBC 8.2 103/ul Normal 4.0-11.0 [facility] Comment on above: Performed By: #### P TT, PT #### [facility] [address] [address] [address] Shine Del Rosario Covid-19 PCR ([facility])on SARS-CoV-2 (COVID-19) RNA LYLA+probe Ql (Unsp spec) Not detected Normal NOT DETECTED The [facility] Comment on above: Result Comment: When diagnostic testing is negative, the possibility of a false negative should be considered in the context of a patient's recent exposures and the presence of clinical signs and symptoms consistent with SARS-CoV-2. This test is not yet approved or cleared by the [place] FDA. When there are no FDA-approved or cleared tests available, and other criteria are met, FDA can make tests available under an emergency access mechanism called an Emergency Use Authorization (EUA). The EUA for this test is supported by the [place] of Health and Human Service's declaration that circumstances exist to justify the emergency use of in vitro diagnostics for the detection and/or diagnosis of the virus that causes COVID-19. This EUA will remain in effect for the duration of the COVID-19 declaration justifying emergency of IVDs, unless it is terminated or revoked by the FDA (after which the test may no longer be used). Performed By: #### P HVEN #### [facility] [address] [place] [address] Dr. Shine Del Rosario LACTATE/LACTIC ACIDon 2021 Lactate [Moles/Vol] 0.9 mmol/L Normal 0.4-1.9 [facility] Comment on above: Performed By: #### P TT, PT #### [facility] [address] [place] [address] Dr. Shine Del Rosario PH VENOUS BLOODon 01-19-2022 PCO2 VENOUS 43.6 mmHg Normal 40.0-52.0 [facility] Comment on above: Performed By: #### P HVEN #### [facility] [address] [place] [address] Dr. Shine Del Rosario pH VENOUS 7.360 Normal 7.330-7.43 0 [facility] Comment on above: Performed By: #### P HVEN #### [facility] [address] [place] [address] Dr. Shine Del Rosario PROF 14(COMP METB)on 022 Albumin [Mass/Vol] 3.3 g/dL Critically low 3.4-5.0 [facility] Comment on above: Performed By: #### C MP, BNP, HSTROPN #### [facility] [address] [place] [address] Dr. Shine Del Rosario Albumin/Globulin [Mass ratio] 0.8 {ratio} Normal [facility] Comment on above: Performed By: #### C MP, BNP, HSTROPN #### [facility] [address] [place] [address] Dr. Shine Del Rosario ALP [Catalytic activity/Vol] 158 U/L Critically high 46-116 [facility] Comment on above: Performed By: #### C MP, BNP, HSTROPN #### [facility] [address] [place] [address] Dr. Shine Del Rosario ALT [Catalytic activity/Vol] 95 U/L Critically high 14-59 [facility] Comment on above: Performed By: #### C MP, BNP, HSTROPN #### [facility] [address] [address] [address] Shine Del Rosario Anion gap [Moles/Vol] 10.7 mmol/L Normal [facility] Comment on above: Performed By: #### C MP, BNP, HSTROPN #### [facility] [address] [place] [address] Dr. Shine Del Rosario AST [Catalytic activity/Vol] 118 U/L Critically high 15-37 The [facility] Comment on above: Performed By: #### C MP, BNP, HSTROPN #### [facility] [address] [place] [address] Dr. Shine Del Rosario Bilirubin [Mass/Vol] 0.8 mg/dL Normal 0.2-1.0 [facility] Comment on above: Performed By: #### C MP, BNP, HSTROPN #### [facility] [address] [place] [address] Dr. Shine Del Rosario Calcium [Mass/Vol] 8.8 mg/dL Normal 8.5-10.1 The [facility] Comment on above: Performed By: #### C MP, BNP, HSTROPN #### [facility] [address] [place] [address] Dr. Shine Del Rosario Chloride [Moles/Vol] 96 mmol/L Critically low 98-107 The [facility] Comment on above: Performed By: #### C MP, BNP, HSTROPN #### [facility] [address] [place] [address] Dr. Shine Del Rosario CO2 [Moles/Vol] 24.3 mmol/L Normal 21.0-32.0 The [facility] Comment on above: Performed By: #### C MP, BNP, HSTROPN #### [facility] [address] [place] [address] Dr. Shine Del Rosario Creatinine [Mass/Vol] 0.69 mg/dL Normal 0.55-1.02 The [facility] Comment on above: Performed By: #### C MP, BNP, HSTROPN #### [facility] [address] [address] [address] Shine Del Rosario EGFR-AF BANGLADESHI >60 Normal >=60 [facility] Comment on above: Performed By: #### C MP, BNP, HSTROPN #### [facility] [address] [address] [address] Shine Del Rosario EGFR-NON AF BANGLADESHI >60 Normal >=60 [facility] Comment on above: Performed By: #### C MP, BNP, HSTROPN #### [facility] [address] [address] [address] Shine Del Rosario Globulin (S) [Mass/Vol] 4.1 g/dL Normal [facility] Comment on above: Performed By: #### C MP, BNP, HSTROPN #### [facility] [address] [address] [address] Shine Del Rosario Glucose [Mass/Vol] 87 mg/dL Normal 74-106 [facility] Comment on above: Performed By: #### C MP, BNP, HSTROPN #### [facility] [address] [address] [address] Shine Del Rosario Potassium [Moles/Vol] 4.0 mmol/L Normal 3.5-5.1 The [facility] Comment on above: Performed By: #### C MP, BNP, HSTROPN #### [facility] [address] [address] [address] Shine Del Rosario Protein [Mass/Vol] 7.4 g/dL Normal 6.4-8.2 [facility] Comment on above: Performed By: #### C MP, BNP, HSTROPN #### [facility] [address] [address] [address] Shine Del Rosario Sodium [Moles/Vol] 127 mmol/L Critically low 136-145 [facility] Comment on above: Performed By: #### C MP, BNP, HSTROPN #### [facility] [address] [address] [address] Shine Del Rosario Urea nitrogen [Mass/Vol] 4.0 mg/dL Critically low 7.0-18.0 [facility] Comment on above: Performed By: #### C MP, BNP, HSTROPN #### [facility] [address] [place] [address] Dr. Shine Del Rosario Urea nitrogen/Creatinine [Mass ratio] 5.8 mg/mg Normal The [facility] Comment on above: Performed By: #### C MP, BNP, HSTROPN #### [facility] [address] [place] [address] Dr. Shine Del Rosario PROTIMEon 01-19-2022 INR Coag (PPP) [Relative time] 0.97 {INR} Normal The [facility] Comment on above: Performed By: #### B MP #### [facility] [address] [place] [address] Dr. Shine Del Rosario INR GUIDELINES SEE BELOW Normal [facility] Comment on above: Result Comment: JUDY RED INR: 2.0 - 3.0 CONDITIONS NOT LISTED BELOW 2.5 - 3.5 FOR PROSTHETIC HEART VALVE REPLACEMENT 2.5 - 3.5 RECURRENT THROMBOSIS Performed By: #### B MP #### [facility] [address] [place] [address] Dr. Shine Del Rosario PT Coag (PPP) [Time] 10.5 s Normal 9.0-11.6 The [facility] Comment on above: Performed By: #### B MP #### [facility] [address] [place] [address] Dr. Shine Del Rosario PTTon 01-19-2022 aPTT Coag (Bld) [Time] 45.8 s Critically high 22.3-36.2 The [facility] Comment on above: Performed By: #### B MP #### [facility] [address] [place] [address] Dr. Shine Del Rosario TROPONIN, HIGH SENSITIVITYon 01-19-2022 HSTROP 11.4 pg/mL Normal 4.0-51.3 The [facility] Comment on above: Result Comment: CUT- OFF POINTS HAVE BEEN ESTABLISHED BASED ON THE FOURTH UNIVERSAL DEFINITIONS OF MYOCARDIAL INFARCTION. THE UPPER REFERENCE LIMIT (URL) OF TROPONIN, DEFINED THE 99TH PERCENTILE OF cTnI DISTRIBUTION IN A REFERENCE POPULATION, HAS BEEN CONFIRMED THE DECISION THRESHOLD FOR SC DIAGNOSIS. Performed By: #### P HVEN #### [facility] [address] [address] [address] Shine Del Rosario XR CHEST 1 Von 01-19-2022 XR CHEST 1 V EXAMINATION: XR CHES T 1 V HISTORY: Shortness of breath COMPARISON: Chest x-rays 09/27/2021 TECHNIQUE: Portable chest FINDINGS: The lung parenchyma is free of consolidation or infiltrate. No pneumothorax or pleural effusion. The cardiac, mediastinal and hilar contours are normal. The visualized osseous structures exhibit no gross abnormality. IMPRESSION: No acute cardiopulmonary abnormality. Electronically authenticated by: PAWAN BRUNNER Date: 2022-01-19 19:05 Normal The [facility] CBC AUTO DIFFon 10-18-2021 BASO # 0.0 103/ul Normal 0.0-0.1 [facility] Comment on above: Performed By: #### L IVER #### [facility] [address] [address] [address] Shine Del Rosario Basophils/100 WBC (Bld) 0.7 % Normal 0.2-2.0 [facility] Comment on above: Performed By: #### L IVER #### [facility] [address] [address] [address] Shine Del Rosario EO # 0.1 103/ul Normal 0.0-0.7 [facility] Comment on above: Performed By: #### L IVER #### [facility] [address] [address] [address] Shine Del Rosario Eosinophils/100 WBC (Bld) 1.1 % Normal 0.9-7.0 [facility] Comment on above: Performed By: #### L IVER #### [facility] [address] [address] [address] Shine Del Rosario Erythrocyte distribution width (RBC) [Ratio] 16.3 % Critically high 11.0-15.0 [facility] Comment on above: Performed By: #### L IVER #### [facility] [address] [address] [address] Shine Del Rosario Hematocrit (Bld) [Volume fraction] 34.0 % Critically low 36.0-48.0 [facility] Comment on above: Performed By: #### L IVER #### [facility] [address] [place] [address] Dr. Shine Del Rosario Hemoglobin (Bld) [Mass/Vol] 10.8 g/dL Critically low 12.0-16.0 [facility] Comment on above: Performed By: #### L IVER #### [facility] [facility] [address] [place] [address] Dr. Shine Del Rosario IG # 0.06 10e3/ul Critically high 0.00-0.03 [facility] Comment on above: Performed By: #### L IVER #### [facility] [address] [place] [address] Dr. Shine Del Rosario IG % 1.1 % Critically high 0.0-0.5 [facility] Comment on above: Performed By: #### L IVER #### [facility] [address] [place] [address] Dr. Shine Del Rosario LYMPH # 1.1 103/ul Critically low 1.2-3.8 [facility] Comment on above: Performed By: #### L IVER #### [facility] [address] [place] [address] Dr. Shine Del Rosario Lymphocytes/100 WBC (Bld) 19.5 % Critically low 20.5-60.0 [facility] Comment on above: Performed By: #### L IVER #### [facility] [address] [place] [address] Dr. Shine Del Rosario MANUAL DIFF REQ NO Normal [facility] Comment on above: Performed By: #### L IVER #### [facility] [address] [place] [address] Dr. Shine Del Rosario MCH (RBC) [Entitic mass] 32.1 pg Normal 26.7-34.0 [facility] Comment on above: Performed By: #### L IVER #### [facility] [address] [place] [address] Dr. Shine Del Rosario MCHC (RBC) [Mass/Vol] 31.8 g/dL Normal 29.9-35.2 [facility] Comment on above: Performed By: #### L IVER #### [facility] [address] [place] [address] Dr. Shine Del Rosario MCV (RBC) [Entitic vol] 101.2 fL Critically high 81.0-99.0 [facility] Comment on above: Performed By: #### L IVER #### [facility] [address] [place] [address] Dr. Shine Del Rosario MONO # 0.4 103/ul Normal 0.3-0.8 [facility] Comment on above: Performed By: #### L IVER #### [facility] [address] [place] [address] Dr. Shine Del Rosario Monocytes/100 WBC (Bld) 6.8 % Normal 1.7-12.0 [facility] Comment on above: Performed By: #### L IVER #### [facility] [address] [place] [address] Dr. Shine Del Rosario NEUT # 4.0 103/ul Normal 1.4-6.5 [facility] Comment on above: Performed By: #### L IVER #### [facility] [address] [place] [address] Dr. Shine Del Rosario Neutrophils/100 WBC (Bld) 70.8 % Normal 43.0-75.0 [facility] Comment on above: Performed By: #### L IVER #### [facility] [address] [place] [address] Dr. Shine Del Rosario Platelet mean volume (Bld) [Entitic vol] 8.5 fL Critically low 9.5-13.5 [facility] Comment on above: Performed By: #### L IVER #### [facility] [address] [place] [address] Dr. Shine Del Rosario PLT 307 103/ul Normal 150-450 The [facility] Comment on above: Performed By: #### L IVER #### [facility] [address] [place] [address] Dr. Shine Del Rosario RBC 3.36 106/ul Critically low 4.20-5.40 [facility] Comment on above: Performed By: #### L IVER #### [facility] [address] [place] [address] Dr. Shine Del Rosario WBC 5.6 103/ul Normal 4.0-11.0 [facility] Comment on above: Performed By: #### L IVER #### [facility] [address] [place] [address] Dr. Shine Del Rosario FERRITINon 10-18-2021 Ferritin [Mass/Vol] 2763.0 ng/mL Critically high 8.0-252.0 [facility] Comment on above: Performed By: #### F ERR #### [facility] [address] [place] [address] Dr. Shine Del Rosario PROF 14(COMP METB)on 022 Albumin [Mass/Vol] 2.9 g/dL Critically low 3.4-5.0 Th e [facility] Comment on above: Performed By: #### B MP #### [facility] [address] [place] [address] Dr. Shine Del Rosario Albumin/Globulin [Mass ratio] 0.7 {ratio} Normal [facility] Comment on above: Performed By: #### B MP #### [facility] [address] [place] [address] Dr. Shine Del Rosario ALP [Catalytic activity/Vol] 209 U/L Critically high 46-116 [facility] Comment on above: Performed By: #### B MP #### [facility] [address] [place] [address] Dr. Shine Del Rosario ALT [Catalytic activity/Vol] 357 U/L Critically high 14-59 [facility] Comment on above: Performed By: #### B MP #### [facility] [address] [place] [address] Dr. Shine Del Rosario Anion gap [Moles/Vol] 11.0 mmol/L Normal [facility] Comment on above: Performed By: #### B MP #### [facility] [address] [place] [address] Dr. Shine Del Rosario AST [Catalytic activity/Vol] 610 U/L Critically high 15-37 [facility] Comment on above: Performed By: #### B MP #### [facility] [address] [address] [address] Shine Del Rosario Bilirubin [Mass/Vol] 0.8 mg/dL Normal 0.2-1.0 [facility] Comment on above: Performed By: #### B MP #### [facility] [address] [address] [address] Shine Del Rosario Calcium [Mass/Vol] 8.5 mg/dL Normal 8.5-10.1 [facility] Comment on above: Performed By: #### B MP #### [facility] [address] [address] [address] Shine Del Rosario Chloride [Moles/Vol] 99 mmol/L Normal 98-107 [facility] Comment on above: Performed By: #### B MP #### [facility] [address] [place] [address] Dr. Shine Del Rosario CO2 [Moles/Vol] 27.2 mmol/L Normal 21.0-32.0 [facility] Comment on above: Performed By: #### B MP #### [facility] [address] [place] [address] Dr. Shine Del Rosario Creatinine [Mass/Vol] 0.68 mg/dL Normal 0.55-1.02 [facility] Comment on above: Performed By: #### B MP #### [facility] [address] [place] [address] Dr. Shine Del Rosario EGFR-AF BANGLADESHI >60 Normal >=60 The [facility] Comment on above: Performed By: #### B MP #### [facility] [address] [address] [address] Shine Del Rosario EGFR-NON AF BANGLADESHI >60 Normal >=60 The [facility] Comment on above: Performed By: #### B MP #### [facility] [address] [address] [address] Shine Del Rosario Globulin (S) [Mass/Vol] 4.3 g/dL Normal [facility] Comment on above: Performed By: #### B MP #### [facility] [address] [address] [address] Shine Del Rosario Glucose [Mass/Vol] 118 mg/dL Critically high 74-106 [facility] Comment on above: Performed By: #### B MP #### [facility] [address] [address] [address] Shine Del Rosario Potassium [Moles/Vol] 3.2 mmol/L Critically low 3.5-5.1 [facility] Comment on above: Performed By: #### B MP #### [facility] [address] [address] [address] Shine Del Rosario Protein [Mass/Vol] 7.2 g/dL Normal 6.4-8.2 [facility] Comment on above: Performed By: #### B MP #### [facility] [address] [address] [address] Shine Del Rosario Sodium [Moles/Vol] 134 mmol/L Critically low 136-145 [facility] Comment on above: Performed By: #### B MP #### [facility] [address] [address] [address] Shine Del Rosario Urea nitrogen [Mass/Vol] 5.0 mg/dL Critically low 7.0-18.0 [facility] Comment on above: Performed By: #### B MP #### [facility] [address] [address] [address] Shine Del Rosario Urea nitrogen/Creatinine [Mass ratio] 7.4 mg/mg Normal [facility] Comment on above: Performed By: #### B MP #### [facility] [address] [address] [address] Shine Del Rosario CBC AUTO DIFFon 09-27-2021 BASO # 0.1 103/ul Normal 0.0-0.1 [facility] Comment on above: Performed By: #### L IVER #### [facility] [address] [address] [address] Shine Del Rosario Basophils/100 WBC (Bld) 1.1 % Normal 0.2-2.0 [facility] Comment on above: Performed By: #### L IVNILAM #### [facility] [address] [place] [address] Dr. Shine Del Rosario EO # 0.2 103/ul Normal 0.0-0.7 [facility] Comment on above: Performed By: #### L IVER #### [facility] [address] [place] [address] Dr. Shine Del Rosario Eosinophils/100 WBC (Bld) 2.8 % Normal 0.9-7.0 [facility] Comment on above: Performed By: #### L IVER #### [facility] [address] [place] [address] Dr. Shine Del Rosario Erythrocyte distribution width (RBC) [Ratio] 12.7 % Normal 11.0-15.0 [facility] Comment on above: Performed By: #### L IVER #### [facility] [address] [place] [address] Dr. Shine Del Rosario Hematocrit (Bld) [Volume fraction] 30.0 % Critically low 36.0-48.0 [facility] Comment on above: Performed By: #### L IVER #### [facility] [address] [place] [address] Dr. Shine Del Rosario Hemoglobin (Bld) [Mass/Vol] 9.9 g/dL Critically low 12.0-16.0 [facility] Comment on above: Performed By: #### L IVER #### [facility] [address] [place] [address] Dr. Shine Del Rosario IG # 0.08 10e3/ul Critically high 0.00-0.03 [facility] Comment on above: Performed By: #### L IVER #### [facility] [address] [place] [address] Dr. Shine Del Rosario IG % 1.5 % Critically high 0.0-0.5 [facility] Comment on above: Performed By: #### L IVER #### [facility] [address] [place] [address] Dr. Shine Del Rosario LYMPH # 1.5 103/ul Normal 1.2-3.8 [facility] Comment on above: Performed By: #### L IVER #### [facility] [address] [place] [address] Dr. Shine Del Rosario Lymphocytes/100 WBC (Bld) 29.0 % Normal 20.5-60.0 [facility] Comment on above: Performed By: #### L IVER #### [facility] [address] [place] [address] Dr. Shine Del Rosario MANUAL DIFF REQ NO Normal The [facility] Comment on above: Performed By: #### L IVER #### [facility] [address] [place] [address] Dr. Shine Del Rosario MCH (RBC) [Entitic mass] 31.3 pg Normal 26.7-34.0 [facility] Comment on above: Performed By: #### L IVER #### [facility] [address] [place] [address] Dr. Shine Del Rosario MCHC (RBC) [Mass/Vol] 33.0 g/dL Normal 29.9-35.2 [facility] Comment on above: Performed By: #### L IVER #### [facility] [address] [place] [address] Dr. Shine Del Rosario MCV (RBC) [Entitic vol] 94.9 fL Normal 81.0-99.0 [facility] Comment on above: Performed By: #### L IVER #### [facility] [address] [place] [address] Dr. Shine Del Rosario MONO # 0.8 103/ul Normal 0.3-0.8 The [facility] Comment on above: Performed By: #### L IVER #### [facility] [address] [place] [address] Dr. Shine Del Rosario Monocytes/100 WBC (Bld) 15.6 % Critically high 1.7-12.0 [facility] Comment on above: Performed By: #### L IVER #### [facility] [address] [place] [address] Dr. Shine Del Rosario NEUT # 2.7 103/ul Normal 1.4-6.5 The [facility] Comment on above: Performed By: #### L IVER #### [facility] [address] [address] [address] Shine Del Rosario Neutrophils/100 WBC (Bld) 50.0 % Normal 43.0-75.0 [facility] Comment on above: Performed By: #### L IVER #### [facility] [address] [address] [address] Shine Del Rosario Platelet mean volume (Bld) [Entitic vol] 8.5 fL Critically low 9.5-13.5 [facility] Comment on above: Performed By: #### L IVER #### [facility] [address] [address] [address] Shine Del Rosario PLT 583 103/ul Critically high 150-450 [facility] Comment on above: Performed By: #### L IVER #### [facility] [address] [place] [address] Dr. Shine Del Rosario RBC 3.16 106/ul Critically low 4.20-5.40 [facility] Comment on above: Performed By: #### L IVER #### [facility] [address] [address] [address] Shine Del Rosario WBC 5.3 103/ul Normal 4.0-11.0 [facility] Comment on above: Performed By: #### L IVER #### [facility] [address] [place] [address] Dr. Shine Del Rosario FERRITINon 09-27-2021 Ferritin [Mass/Vol] 1664.0 ng/mL Critically high 8.0-252.0 [facility] Comment on above: Performed By: #### B MP #### [facility] [address] [place] [address] Dr. Shine Del Rosario PROF CHEM 8 (BAS METB)on Anion gap [Moles/Vol] 12.4 mmol/L Normal [facility] Comment on above: Performed By: #### B MP #### [facility] [address] [place] [address] Dr. Shine Del Rosario Calcium [Mass/Vol] 9.0 mg/dL Normal 8.5-10.1 [facility] Comment on above: Performed By: #### B MP #### [facility] [address] [address] [address] Shine Del Rosario Chloride [Moles/Vol] 94 mmol/L Critically low 98-107 [facility] Comment on above: Performed By: #### B MP #### [facility] [address] [address] [address] Shine Del Rosario CO2 [Moles/Vol] 26.2 mmol/L Normal 21.0-32.0 [facility] Comment on above: Performed By: #### B MP #### [facility] [address] [address] [address] Shine Del Rosario Creatinine [Mass/Vol] 0.65 mg/dL Normal 0.55-1.02 [facility] Comment on above: Performed By: #### B MP #### [facility] [address] [place] [address] Dr. Shine Del Rosario EGFR-AF BANGLADESHI >60 Normal >=60 [facility] Comment on above: Performed By: #### B MP #### [facility] [address] [address] [address] Shine Del Rosario EGFR-NON AF BANGLADESHI >60 Normal >=60 [facility] Comment on above: Performed By: #### B MP #### [facility] [address] [place] [address] Dr. Shine Del Rosario Glucose [Mass/Vol] 98 mg/dL Normal 74-106 [facility] Comment on above: Performed By: #### B MP #### [facility] [address] [address] [address] Shine Del Rosario Potassium [Moles/Vol] 4.6 mmol/L Normal 3.5-5.1 The [facility] Comment on above: Performed By: #### B MP #### [facility] [address] [address] [address] Shine Del Rosario Sodium [Moles/Vol] 128 mmol/L Critically low 136-145 [facility] Comment on above: Performed By: #### B MP #### [facility] [address] [address] [address] Shine Del Rosario Urea nitrogen [Mass/Vol] 7.0 mg/dL Normal 7.0-18.0 [facility] Comment on above: Performed By: #### B MP #### [facility] [address] [address] [address] Shine Del Rosario Urea nitrogen/Creatinine [Mass ratio] 10.8 mg/mg Normal [facility] Comment on above: Performed By: #### B MP #### [facility] [address] [place] [address] Dr. Shine Del Rosario XR CHEST 2 Von 09-27-2021 XR CHEST 2 V EXAMINATION: XR CHES T 2 V HISTORY: Chronic obstructive lung disease. COMPARISON: CTA chest 09/08/2021, chest x-ray 09/08/2019. FINDINGS: The study is overexposed. Two views are submitted. Pulmonary hyperinflation is stable. Right small pleural effusion. Previously seen left pleural effusion has resolved. The lungs and pleural spaces are clear. Pulmonary vascular markings are normal. The cardiomediastinal silhouette is within normal limits. No bony lesions are shown. IMPRESSION: 1. Small right pleural effusion, decreased in size. Left pleural effusion has resolved. Electronically authenticated by: BOB TATUM Date: 2021-09-27 20:21 Normal The [facility] CBC AUTO DIFFon 09-23-2021 BASO # 0.1 103/ul Normal 0.0-0.1 [facility] Comment on above: Performed By: #### P TT, PT #### [facility] [address] [place] [address] Dr. Shine Del Rosario Basophils/100 WBC (Bld) 0.8 % Normal 0.2-2.0 The [facility] Comment on above: Performed By: #### P TT, PT #### [facility] [address] [place] [address] Dr. Shine Del Rosario EO # 0.2 103/ul Normal 0.0-0.7 [facility] Comment on above: Performed By: #### P TT, PT #### [facility] [address] [place] [address] Dr. Shine Del Rosario Eosinophils/100 WBC (Bld) 3.2 % Normal 0.9-7.0 The [facility] Comment on above: Performed By: #### P TT, PT #### [facility] [address] [place] [address] Dr. Shine Del Rosario Erythrocyte distribution width (RBC) [Ratio] 12.4 % Normal 11.0-15.0 [facility] Comment on above: Performed By: #### P TT, PT #### [facility] [address] [place] [address] Dr. Shine Del Rosario Hematocrit (Bld) [Volume fraction] 28.8 % Critically low 36.0-48.0 [facility] Comment on above: Performed By: #### P TT, PT #### [facility] [address] [place] [address] Dr. Shine Del Rosario Hemoglobin (Bld) [Mass/Vol] 9.8 g/dL Critically low 12.0-16.0 [facility] Comment on above: Performed By: #### P TT, PT #### [facility] [address] [place] [address] Dr. Shine Del Rosario IG # 0.03 10e3/ul Normal 0.00-0.03 The [facility] Comment on above: Performed By: #### P TT, PT #### [facility] [address] [place] [address] Dr. Shine Del Rosario IG % 0.4 % Normal 0.0-0.5 The [facility] Comment on above: Performed By: #### P TT, PT #### [facility] [address] [place] [address] Dr. Shine Del Rosario LYMPH # 1.4 103/ul Normal 1.2-3.8 [facility] Comment on above: Performed By: #### P TT, PT #### [facility] [address] [place] [address] Dr. Shine Del Rosario Lymphocytes/100 WBC (Bld) 19.5 % Critically low 20.5-60.0 [facility] Comment on above: Performed By: #### P TT, PT #### [facility] [address] [place] [address] Dr. Shine Del Rosario MANUAL DIFF REQ NO Normal The [facility] Comment on above: Performed By: #### P TT, PT #### [facility] [address] [place] [address] Dr. Shine Del Rosario MCH (RBC) [Entitic mass] 32.0 pg Normal 26.7-34.0 [facility] Comment on above: Performed By: #### P TT, PT #### [facility] [address] [place] [address] Dr. Shine Del Rosario MCHC (RBC) [Mass/Vol] 34.0 g/dL Normal 29.9-35.2 [facility] Comment on above: Performed By: #### P TT, PT #### [facility] [address] [place] [address] Dr. Shine Del Rosario MCV (RBC) [Entitic vol] 94.1 fL Normal 81.0-99.0 [facility] Comment on above: Performed By: #### P TT, PT #### [facility] [address] [place] [address] Dr. Shine Del Rosario MONO # 0.8 103/ul Normal 0.3-0.8 The [facility] Comment on above: Performed By: #### P TT, PT #### [facility] [address] [place] [address] Dr. Shine Del Rosario Monocytes/100 WBC (Bld) 10.9 % Normal 1.7-12.0 [facility] Comment on above: Performed By: #### P TT, PT #### [facility] [address] [place] [address] Dr. Shine Del Rosario NEUT # 4.7 103/ul Normal 1.4-6.5 [facility] Comment on above: Performed By: #### P TT, PT #### [facility] [address] [place] [address] Dr. Shine Del Rosario Neutrophils/100 WBC (Bld) 65.2 % Normal 43.0-75.0 [facility] [facility] Comment on above: Performed By: #### P TT, PT #### [facility] [address] [address] [address] Shine Del Rosario Platelet mean volume (Bld) [Entitic vol] 8.8 fL Critically low 9.5-13.5 [facility] Comment on above: Performed By: #### P TT, PT #### [facility] [address] [place] [address] Dr. Shine Del Rosario PLT 613 103/ul Critically high 150-450 The [facility] Comment on above: Performed By: #### P TT, PT #### [facility] [address] [place] [address] Dr. Shine Del Rosario RBC 3.06 106/ul Critically low 4.20-5.40 [facility] Comment on above: Performed By: #### P TT, PT #### [facility] [address] [place] [address] Dr. Shine Del Rosario WBC 7.1 103/ul Normal 4.0-11.0 The [facility] Comment on above: Performed By: #### P TT, PT #### [facility] [address] [place] [address] Dr. Shine Del Rosario PROF CHEM 8 (BAS METB)on Anion gap [Moles/Vol] 13.6 mmol/L Normal [facility] Comment on above: Performed By: #### P TT, PT #### [facility] [address] [place] [address] Dr. Shine Del Rosario Calcium [Mass/Vol] 9.0 mg/dL Normal 8.5-10.1 The [facility] Comment on above: Performed By: #### P TT, PT #### [facility] [address] [place] [address] Dr. Shine Del Rosario Chloride [Moles/Vol] 89 mmol/L Critically low 98-107 [facility] Comment on above: Performed By: #### P TT, PT #### [facility] [address] [place] [address] Dr. Shine Del Rosario CO2 [Moles/Vol] 23.6 mmol/L Normal 21.0-32.0 [facility] Comment on above: Performed By: #### P TT, PT #### [facility] [address] [address] [address] Shine Del Rosario Creatinine [Mass/Vol] 0.63 mg/dL Normal 0.55-1.02 [facility] Comment on above: Performed By: #### P TT, PT #### [facility] [address] [address] [address] Shine Del Rosario EGFR-AF BANGLADESHI >60 Normal >=60 [facility] Comment on above: Performed By: #### P TT, PT #### [facility] [address] [address] [address] Shine Del Rosario EGFR-NON AF BANGLADESHI >60 Normal >=60 [facility] Comment on above: Performed By: #### P TT, PT #### [facility] [address] [address] [address] Shine Del Rosario Glucose [Mass/Vol] 116 mg/dL Critically high 74-106 [facility] Comment on above: Performed By: #### P TT, PT #### [facility] [address] [address] [address] Shine Del Rosario Potassium [Moles/Vol] 3.2 mmol/L Critically low 3.5-5.1 [facility] Comment on above: Performed By: #### P TT, PT #### [facility] [address] [address] [address] Shine Del Rosario Sodium [Moles/Vol] 123 mmol/L Critically low 136-145 [facility] Comment on above: Performed By: #### P TT, PT #### [facility] [address] [address] [address] Shine Del Rosario Urea nitrogen [Mass/Vol] 7.0 mg/dL Normal 7.0-18.0 [facility] Comment on above: Performed By: #### P TT, PT #### [facility] [address] [address] [address] Shine Del Rosario Urea nitrogen/Creatinine [Mass ratio] 11.1 mg/mg Normal [facility] Comment on above: Performed By: #### P TT, PT #### [facility] [address] [place], [place] [address] Dr. Shine Del Rosario [id number] PHENOTYP INGon 09-12-2021 [id number] , Serum 239 mg/dL Critically high 101-187 [facility] Comment on above: Result Comment: Perf ormed at: CB Performed By: #### P TT, PT #### [facility] [id number] Shine Del Rosario Phenotype (PI) MM Normal [facility] Comment on above: Result Comment: Phen otype Population A-1-AT Concentration* Incidence % % of MM (Typical Range) MM 86.5% 100% (96 - 189) MS 8.0% 86% (83 - 161) MZ 3.9% 61% (60 - 111) FM 0.4% 100% (93 - 191) SZ 0.3% 41% (42 - 75) SS 0.1% 64% (62 - 119) ZZ 0.05% 19% (16 - 38) FS 0.05% 70% (70 - 128) FZ Unknown 46% (44 - 88) FF Unknown Unknown *A-1-AT concentration in the homozygous MM phenotype is taken as the reference normal. Percent deficiency in each phenotype is reported relative to this reference. Ranges used to confirm phenotype. Performed at: BN Performed By: #### P TT, PT #### [facility] [address] [place] [id number] STROKE HEAD WOon 09-13-[address] STROKE HEAD WO EXAMINATION: CT STRO KE HEAD WO. HISTORY: HEADACHE. COMPARISON: None. TECHNIQUE: CT examination of the head without IV contrast. Dose reduction techniques were achieved by using automated exposure control and/or adjustment of mA and/or kV according to patient size and/or use of iterative reconstruction technique. FINDINGS: There is a small left posterior parietal subgaleal hematoma. The sinclair-white matter differentiation is preserved. There is no acute intracranial hemorrhage or mass effect. No extra-axial fluid is seen. The ventricles, basilar cisterns are patent. There is mild periventricular, subcortical white matter patchy hypodensity, suggestive of chronic microvascular ischemic changes. There is rightward deviation of the nasal septum. The globes and orbits appear unremarkable. The paranasal sinuses, mastoid air cells are clear. No acute abnormalities of the calvarium. Calcified plaque is seen in the carotid siphon. IMPRESSION: Small left posterior parietal subgaleal hematoma. Otherwise, no acute intracranial findings. Electronically authenticated by: HOLLI FRANK Date: 2021-09-12 00:13 Normal The [facility] CBC AUTO DIFFon 09-11-2021 BASO # 0.1 103/ul Normal 0.0-0.1 The [facility] Comment on above: Performed By: #### B MP #### [facility] [address] [address] [address] Shine Del Rosario Basophils/100 WBC (Bld) 0.8 % Normal 0.2-2.0 [facility] Comment on above: Performed By: #### B MP #### [facility] [address] [address] [address] Shine Del Rosario EO # 0.6 103/ul Normal 0.0-0.7 The [facility] Comment on above: Performed By: #### B MP #### [facility] [address] [address] [address] Shine Del Rosario Eosinophils/100 WBC (Bld) 4.9 % Normal 0.9-7.0 [facility] Comment on above: Performed By: #### B MP #### [facility] [address] [address] [address] Shine Del Rosario Erythrocyte distribution width (RBC) [Ratio] 13.9 % Normal 11.0-15.0 The [facility] Comment on above: Performed By: #### B MP #### [facility] [address] [address] [address] Shine Del Rosario Hematocrit (Bld) [Volume fraction] 25.6 % Critically low 36.0-48.0 The [facility] Comment on above: Performed By: #### B MP #### [facility] [address] [address] [address] Shine Del Rosario Hemoglobin (Bld) [Mass/Vol] 7.8 g/dL Critically low 12.0-16.0 The [facility] Comment on above: Performed By: #### B MP #### [facility] [address] [place] [address] Dr. Shine Del Rosario IG # 0.67 10e3/ul Critically high 0.00-0.03 [facility] Comment on above: Performed By: #### B MP #### [facility] [address] [place] [address] Dr. Shine Del Rosario IG % 5.7 % Critically high 0.0-0.5 [facility] Comment on above: Performed By: #### B MP #### [facility] [address] [place] [address] Dr. Shine Del Rosario LYMPH # 1.6 103/ul Normal 1.2-3.8 [facility] Comment on above: Performed By: #### B MP #### [facility] [address] [place] [address] Dr. Shine Del Rosario Lymphocytes/100 WBC (Bld) 14.0 % Critically low 20.5-60.0 [facility] Comment on above: Performed By: #### B MP #### [facility] [address] [place] [address] Dr. Shine Del Rosario MANUAL DIFF REQ NO Normal [facility] Comment on above: Performed By: #### B MP #### [facility] [address] [place] [address] Dr. Shine Del Rosario MCH (RBC) [Entitic mass] 32.1 pg Normal 26.7-34.0 [facility] Comment on above: Performed By: #### B MP #### [facility] [address] [place] [address] Dr. Shine Del Rosario MCHC (RBC) [Mass/Vol] 30.5 g/dL Normal 29.9-35.2 The [facility] Comment on above: Performed By: #### B MP #### [facility] [address] [place] [address] Dr. Shine Del Rosario MCV (RBC) [Entitic vol] 105.3 fL Critically high 81.0-99.0 [facility] Comment on above: Performed By: #### B MP #### [facility] [address] [address] [address] Shine Del Rosario MONO # 1.3 103/ul Critically high 0.3-0.8 [facility] Comment on above: Performed By: #### B MP #### [facility] [address] [address] [address] Shine Del Rosario Monocytes/100 WBC (Bld) 11.1 % Normal 1.7-12.0 The [facility] Comment on above: Performed By: #### B MP #### [facility] [address] [place] [address] Dr. Shine Del Rosario NEUT # 7.5 103/ul Critically high 1.4-6.5 [facility] Comment on above: Performed By: #### B MP #### [facility] [address] [place] [address] Dr. Shine Del Rosario Neutrophils/100 WBC (Bld) 63.5 % Normal 43.0-75.0 [facility] Comment on above: Performed By: #### B MP #### [facility] [address] [place] [address] Dr. Shine Del Rosario Platelet mean volume (Bld) [Entitic vol] 8.5 fL Critically low 9.5-13.5 [facility] Comment on above: Performed By: #### B MP #### [facility] [address] [place] [address] Dr. Shine Del Rosario PLT 528 103/ul Critically high 150-450 The [facility] Comment on above: Performed By: #### B MP #### [facility] [address] [place] [address] Dr. Shine Del Rosario RBC 2.43 106/ul Critically low 4.20-5.40 The [facility] Comment on above: Performed By: #### B MP #### [facility] [address] [place] [address] Dr. Shine Del Rosario WBC 11.7 103/ul Critically high 4.0-11.0 The [facility] Comment on above: Performed By: #### B MP #### [facility] [address] [address] [address] Shine Del Rosario PROF CHEM 8 (BAS METB)on Anion gap [Moles/Vol] 12.7 mmol/L Normal [facility] Comment on above: Performed By: #### P HVEN #### [facility] [address] [address] [address] Shine Del Rosario Calcium [Mass/Vol] 8.4 mg/dL Critically low 8.5-10.1 [facility] Comment on above: Performed By: #### P HVEN #### [facility] [address] [address] [address] Shine Del Rosario Chloride [Moles/Vol] 102 mmol/L Normal 98-107 [facility] Comment on above: Performed By: #### P HVEN #### [facility] [address] [place] [address] Dr. Shine Del Rosario CO2 [Moles/Vol] 24.7 mmol/L Normal 21.0-32.0 [facility] Comment on above: Performed By: #### P HVEN #### [facility] [address] [place] [address] Dr. Shine Del Rosario Creatinine [Mass/Vol] 0.58 mg/dL Normal 0.55-1.02 [facility] Comment on above: Performed By: #### P HVEN #### [facility] [address] [place] [address] Dr. Shine Del Rosario EGFR-AF BANGLADESHI >60 Normal >=60 The [facility] Comment on above: Performed By: #### P HVEN #### [facility] [address] [place] [address] Dr. Shine Del Rosario EGFR-NON AF BANGLADESHI >60 Normal >=60 [facility] Comment on above: Performed By: #### P HVEN #### [facility] [address] [place] [address] Dr. Shine Del Rosario Glucose [Mass/Vol] 95 mg/dL Normal 74-106 [facility] Comment on above: Performed By: #### P HVEN #### [facility] [address] [place] [address] Dr. Shine Del Rosario Potassium [Moles/Vol] 4.4 mmol/L Normal 3.5-5.1 [facility] Comment on above: Performed By: #### P HVEN #### [facility] [address] [address] [address] Shine Del Rosario Sodium [Moles/Vol] 135 mmol/L Critically low 136-145 Th e [facility] Comment on above: Performed By: #### P HVEN #### [facility] [address] [address] [address] Shine Del Rosario Urea nitrogen [Mass/Vol] 7.0 mg/dL Normal 7.0-18.0 [facility] Comment on above: Performed By: #### P HVEN #### [facility] [address] [place] [address] Dr. Shine Del Rosario Urea nitrogen/Creatinine [Mass ratio] 12.1 mg/mg Normal The [facility] Comment on above: Performed By: #### P HVEN #### [facility] [address] [place] [address] Dr. Shine Del Rosario SPUTUM CULTUREon 09-11-2021 Epithelial cells LM Ql (Urine sed) None seen Normal [facility] Comment on above: Performed By: #### P TT, PT #### [facility] [address] [place] [address] Dr. Shine Del Rosario Gram Stain Evaluation Comment Normal The [facility] Comment on above: Result Comment: This specimen is of good quality and is acceptable for routine bacterial culture. Performed By: #### P TT, PT #### [facility] [address] [place] [address] Dr. Shine Del Rosario Lower Respiratory Culture Final report Abnormal The [facility] Comment on above: Performed By: #### P TT, PT #### [facility] [address] [place] [address] Dr. Shine Del Rosario Result 1 Comment Abnormal The [facility] Comment on above: Result Comment: Mode rate number of gram positive cocci. Performed By: #### P TT, PT #### [facility] [address] [place] [address] Dr. Shine Del Rosario Result Comment: Loza xella (branhamella) catarrhalis Heavy growth Beta lactamase positive. Result 2 Normal The [facility] Comment on above: Performed By: #### P TT, PT #### [facility] [address] [place] [address] Dr. Shine Del Rosario Result 2 Comment Normal [facility] Comment on above: Result Comment: Rout ine respiratory cruzito Moderate growth Performed By: #### P TT, PT #### [facility] [address] [place] [address] Dr. Shine Del Rosario Result 3 Normal The [facility] Comment on above: Performed By: #### P TT, PT #### [facility] [address] [place] [address] Dr. Shine Del Rosario Result 4 Normal [facility] Comment on above: Performed By: #### P TT, PT #### [facility] [address] [place] [address] Dr. Shine Del Rosario White Blood Cells Moderate Normal The [facility] Comment on above: Performed By: #### P TT, PT #### [facility] [address] [place] [address] Dr. Shine Del Rosario CBC AUTO DIFFon 09-10-2021 BASO # 0.1 103/ul Normal 0.0-0.1 [facility] Comment on above: Performed By: #### P TT, PT #### [facility] [address] [place] [address] Dr. Shine Del Rosario Basophils/100 WBC (Bld) 0.9 % Normal 0.2-2.0 The [facility] Comment on above: Performed By: #### P TT, PT #### [facility] [address] [place] [address] Dr. Shine Del Rosario EO # 0.5 103/ul Normal 0.0-0.7 The [facility] Comment on above: Performed By: #### P TT, PT #### [facility] [address] [place] [address] Dr. Shine Del Rosario Eosinophils/100 WBC (Bld) 4.6 % Normal 0.9-7.0 [facility] Comment on above: Performed By: #### P TT, PT #### [facility] [address] [place] [address] Dr. Shine Del Rosario Erythrocyte distribution width (RBC) [Ratio] 13.8 % Normal 11.0-15.0 [facility] Comment on above: Performed By: #### P TT, PT #### [facility] [address] [place] [address] Dr. Shine Del Rosario Hematocrit (Bld) [Volume fraction] 24.2 % Critically low 36.0-48.0 [facility] Comment on above: Performed By: #### P TT, PT #### [facility] [address] [place] [address] Dr. Shine Del Rosario Hemoglobin (Bld) [Mass/Vol] 7.5 g/dL Critically low 12.0-16.0 [facility] Comment on above: Performed By: #### P TT, PT #### [facility] [address] [place] [address] Dr. Shine Del Rosario IG # 0.60 10e3/ul Critically high 0.00-0.03 [facility] Comment on above: Performed By: #### P TT, PT #### [facility] [address] [place] [address] Dr. Shine Del Rosario IG % 5.4 % Critically high 0.0-0.5 [facility] Comment on above: Performed By: #### P TT, PT #### [facility] [address] [place] [address] Dr. Shine Del Rosario LYMPH # 1.6 103/ul Normal 1.2-3.8 The [facility] Comment on above: Performed By: #### P TT, PT #### [facility] [address] [place] [address] Dr. Shine Del Rosario Lymphocytes/100 WBC (Bld) 14.3 % Critically low 20.5-60.0 [facility] Comment on above: Performed By: #### P TT, PT #### [facility] [address] [place] [address] Dr. Shine Del Rosario MANUAL DIFF REQ NO Normal The [facility] Comment on above: Performed By: #### P TT, PT #### [facility] [address] [place] [address] Dr. Shine Del Rosario MCH (RBC) [Entitic mass] 32.2 pg Normal 26.7-34.0 [facility] Comment on above: Performed By: #### P TT, PT #### [facility] [address] [place] [address] Dr. Shine Del Rosario MCHC (RBC) [Mass/Vol] 31.0 g/dL Normal 29.9-35.2 [facility] Comment on above: Performed By: #### P TT, PT #### [facility] [address] [place] [address] Dr. Shine Del Rosario MCV (RBC) [Entitic vol] 103.9 fL Critically high 81.0-99.0 [facility] Comment on above: Performed By: #### P TT, PT #### [facility] [address] [place] [address] Dr. Shine Del Rosario MONO # 1.4 103/ul Critically high 0.3-0.8 [facility] Comment on above: Performed By: #### P TT, PT #### [facility] [address] [place] [address] Dr. Shine Del Rosario Monocytes/100 WBC (Bld) 12.3 % Critically high 1.7-12.0 [facility] Comment on above: Performed By: #### P TT, PT #### [facility] [address] [place] [address] Dr. Shine Del Rosario NEUT # 7.0 103/ul Critically high 1.4-6.5 The [facility] Comment on above: Performed By: #### P TT, PT #### [facility] [address] [place] [address] Dr. Shine Del Rosario Neutrophils/100 WBC (Bld) 62.5 % Normal 43.0-75.0 [facility] Comment on above: Performed By: #### P TT, PT #### [facility] [address] [place] [address] Dr. Shine Del Rosario Platelet mean volume (Bld) [Entitic vol] 8.7 fL Critically low 9.5-13.5 [facility] Comment on above: Performed By: #### P TT, PT #### [facility] [address] [place] [address] Dr. Shine Del Rosario PLT 476 103/ul Critically high 150-450 [facility] Comment on above: Performed By: #### P TT, PT #### [facility] [address] [place] [address] Dr. Shine Del Rosario RBC 2.33 106/ul Critically low 4.20-5.40 [facility] Comment on above: Performed By: #### P TT, PT #### [facility] [address] [place] [address] Dr. Shine Del Rosario WBC 11.2 103/ul Critically high 4.0-11.0 [facility] Comment on above: Performed By: #### P TT, PT #### [facility] [address] [place] [address] Dr. Shine Del Rosario PREALBUMINon 09-10-2021 Prealbumin [Mass/Vol] 13 mg/dL Normal 10-36 [facility] Comment on above: Performed By: #### B MP #### [facility] [address] [place] [address] Dr. Shine Del Rosario PROF CHEM 8 (BAS METB)on Anion gap [Moles/Vol] 12.7 mmol/L Normal [facility] Comment on above: Performed By: #### L IVER #### [facility] [address] [place] [address] Dr. Shine Del Rosario Calcium [Mass/Vol] 8.2 mg/dL Critically low 8.5-10.1 [facility] Comment on above: Performed By: #### L IVER #### [facility] [address] [place] [address] Dr. Shine Del Rosario Chloride [Moles/Vol] 100 mmol/L Normal 98-107 [facility] Comment on above: Performed By: #### L IVER #### [facility] [address] [address] [address] Shine Del Rosario CO2 [Moles/Vol] 25.8 mmol/L Normal 21.0-32.0 [facility] Comment on above: Performed By: #### L IVER #### [facility] [address] [place] [address] Dr. Shine Del Rosario Creatinine [Mass/Vol] 0.57 mg/dL Normal 0.55-1.02 [facility] Comment on above: Performed By: #### L IVER #### [facility] [address] [place] [address] Dr. Shine Del Rosario EGFR-AF BANGLADESHI >60 Normal >=60 [facility] Comment on above: Performed By: #### L IVER #### [facility] [address] [place] [address] Dr. Shine Del Rosario EGFR-NON AF BANGLADESHI >60 Normal >=60 [facility] Comment on above: Performed By: #### L IVER #### [facility] [address] [place] [address] Dr. Shine Del Rosario Glucose [Mass/Vol] 92 mg/dL Normal 74-106 [facility] Comment on above: Performed By: #### L IVER #### [facility] [address] [place] [address] Dr. Shine Del Rosario Potassium [Moles/Vol] 4.5 mmol/L Normal 3.5-5.1 [facility] Comment on above: Performed By: #### L IVER #### [facility] [address] [place] [address] Dr. Shine Del Rosario Sodium [Moles/Vol] 134 mmol/L Critically low 136-145 [facility] Comment on above: Performed By: #### L IVER #### [facility] [address] [place] [address] Dr. Shine Del Rosario Urea nitrogen [Mass/Vol] 10.0 mg/dL Normal 7.0-18.0 [facility] Comment on above: Performed By: #### L IVER #### [facility] [address] [place] [address] Dr. Shine Del Rosario Urea nitrogen/Creatinine [Mass ratio] 17.5 mg/mg Normal [facility] Comment on above: Performed By: #### L AYDEEER #### [facility] [address] [place] [address] Dr. Shien Del Rosario CBC W MANUAL DIFFon 09-10-19 22 ATYPICAL LYMPH # Normal [facility] Comment on above: Performed By: #### B MP #### [facility] [address] [place] [address] Dr. Shine Del Rosario ATYPICAL LYMPH % Normal [facility] Comment on above: Performed By: #### B MP #### [facility] [address] [place] [address] Dr. Shine Del Rosario BAND # Normal 0.0-0.3 The [facility] Comment on above: Performed By: #### B MP #### [facility] [address] [place] [address] Dr. Shine Del Rosario BAND % Normal 0-5 The [facility] Comment on above: Performed By: #### B MP #### [facility] [address] [place] [address] Dr. Shine Del Rosario BASOM # 0.00 103/ul Normal 0.00-0.10 The [facility] Comment on above: Performed By: #### B MP #### [facility] [address] [place] [address] Dr. Shine Del Rosario BASOM % 0.0 % Critically low 0.2-2.0 The [facility] Comment on above: Performed By: #### B MP #### [facility] [address] [place] [address] Dr. Shine Del Rosario BLAST # Normal [facility] Comment on above: Performed By: #### B MP #### [facility] [address] [place] [address] Dr. Shine Del Rosario BLAST % Normal The [facility] Comment on above: Performed By: #### B MP #### [facility] [address] [place] [address] Dr. Shine Del Rosario CORRECTED WBC Normal 4.0-11.0 The [facility] Comment on above: Performed By: #### B MP #### [facility] [address] [address] [address] Shine Del Rosario EOS # 1.34 103/ul Critically high 0.00-0.70 [facility] Comment on above: Performed By: #### B MP #### [facility] [address] [place] [address] Dr. Shine Del Rosario EOS% 11.0 % Critically high 0.9-7.0 [facility] Comment on above: Performed By: #### B MP #### [facility] [address] [place] [address] Dr. Shine Del Rosario HCT 23.6 % Critically low 36.0-48.0 [facility] Comment on above: Performed By: #### B MP #### [facility] [address] [place] [address] Dr. Shine Del Rosario HGB 7.6 g/dl Critically low 12.0-16.0 [facility] Comment on above: Performed By: #### B MP #### [facility] [address] [place] [address] Dr. Shine Del Rosario LYMPHM # 2.32 103/ul Normal 1.20-3.80 [facility] Comment on above: Performed By: #### B MP #### [facility] [address] [place] [address] Dr. Shine Del Rosario LYMPHM% 19.0 % Critically low 20.5-60.0 The [facility] Comment on above: Performed By: #### B MP #### [facility] [address] [place] [address] Dr. Shine Del Rosario MCH 32.6 pg Normal 26.7-34.0 The [facility] Comment on above: Performed By: #### B MP #### [facility] [address] [place] [address] Dr. Shine Del Rosario MCHC 32.2 g/dl Normal 29.9-35.2 [facility] Comment on above: Performed By: #### B MP #### [facility] [address] [place] [address] Dr. Shine Del Rosario MCV 101.3 fL Critically high 81.0-99.0 [facility] Comment on above: Performed By: #### B MP #### [facility] [address] [place] [address] Dr. Shine Del Rosario METAMYELOCYTE # Normal [facility] Comment on above: Performed By: #### B MP #### [facility] [address] [place] [address] Dr. Shine Del Rosario METAMYELOCYTE % Normal [facility] Comment on above: Performed By: #### B MP #### [facility] [address] [place] [address] Dr. Shine Del Rosario MONOM# 1.83 103/ul Critically high 0.30-0.80 [facility] Comment on above: Performed By: #### B MP #### [facility] [address] [place] [address] Dr. Shine Del Rosario MONOM% 15.0 % Critically high 1.7-12.0 [facility] Comment on above: Performed By: #### B MP #### [facility] [address] [place] [address] Dr. Shine Del Rosario MPV 8.6 fL Critically low 9.5-13.5 [facility] Comment on above: Performed By: #### B MP #### [facility] [address] [place] [address] Dr. Shine Del Rosario MYELOCYTE # Normal [facility] Comment on above: Performed By: #### B MP #### [facility] [address] [place] [address] Dr. Shine Del Rosario MYELOCYTE % Normal [facility] Comment on above: Performed By: #### B MP #### [facility] [address] [place] [address] Dr. Shine Del Rosario NRBC Normal [facility] Comment on above: Performed By: #### B MP #### [facility] [address] [place] [address] Dr. Shine Del Rosario PLT 434 103/ul Normal 150-450 The [facility] Comment on above: Performed By: #### B MP #### [facility] [address] [place] [address] Dr. Shine Del Rosario RBC 2.33 106/ul Critically low 4.20-5.40 [facility] Comment on above: Performed By: #### B MP #### [facility] [address] [place] [address] Dr. Shine Del Rosario RDW 13.3 % Normal 11.0-15.0 [facility] Comment on above: Performed By: #### B MP #### [facility] [address] [place] [address] Dr. Shine Del Rosario SEG # 6.71 103/ul Critically high 1.40-6.50 [facility] Comment on above: Performed By: #### B MP #### [facility] [address] [place] [address] Dr. Shine Del Rosario SEG % 55.0 % Normal 43.0-75.0 [facility] Comment on above: Performed By: #### B MP #### [facility] [address] [place] [address] Dr. Shine Del Rosario WBC 12.2 103/ul Critically high 4.0-11.0 [facility] Comment on above: Performed By: #### B MP #### [facility] [address] [place] [address] Dr. Shine Del Rosario PREALBUMINon 09-09-2021 Procalcitonin WRORD Normal The [facility] Comment on above: Result Comment: Test not performed. The required specimen for the test ordered was not received. . A procalcitonin (PCT) level above 2.0 ng/mL on the first day of ICU admission is associated with a high risk for progression to severe sepsis and/or septic shock. . A PCT level below 0.5 ng/mL on the first day of ICU admission is associated with a low risk for progression to severe sepsis and/or septic shock. . Note: Concentrations <0.5 ng/mL do not exclude an infection, on account of localized infections (without systemic signs) which can be associated with such low concentrations, or a systemic infection in its initial stages (<6 hours). Furthermore, increased procalcitonin can occur without infection. PCT concentrations between 0.5 and 2.0 ng/mL should be interpreted taking into account the patient's history. It is recommended to retest PCT within 6-24 hours if any concentrations <2 ng/mL are obtained. contacted Malathi at your facility on 09-09-2021 Performed By: #### B MP #### [facility] [address] [place] [address] Dr. Shine Del Rosario PROF CHEM 8 (BAS METB)on Anion gap [Moles/Vol] 10.4 mmol/L Normal [facility] Comment on above: Performed By: #### P HVEN #### [facility] [address] [place] [address] Dr. Shine Del Rosario Calcium [Mass/Vol] 8.2 mg/dL Critically low 8.5-10.1 [facility] Comment on above: Performed By: #### P HVEN #### [facility] [address] [place] [address] Dr. Shine Del Rosario Chloride [Moles/Vol] 100 mmol/L Normal 98-107 [facility] Comment on above: Performed By: #### P HVEN #### [facility] [address] [place] [address] Dr. Shine Del Rosario CO2 [Moles/Vol] 23.9 mmol/L Normal 21.0-32.0 [facility] Comment on above: Performed By: #### P HVEN #### [facility] [address] [place] [address] Dr. Shine Del Rosario Creatinine [Mass/Vol] 0.84 mg/dL Normal 0.55-1.02 [facility] Comment on above: Performed By: #### P HVEN #### [facility] [address] [place] [address] Dr. Shine Del Rosario EGFR-AF BANGLADESHI >60 Normal >=60 [facility] Comment on above: Performed By: #### P HVEN #### [facility] [address] [place] [address] Dr. Shine Del Rosario EGFR-NON AF BANGLADESHI >60 Normal >=60 [facility] Comment on above: Performed By: #### P HVEN #### [facility] [address] [address] [address] Shine Del Rosario Glucose [Mass/Vol] 101 mg/dL Normal 74-106 [facility] Comment on above: Performed By: #### P HVEN #### [facility] [address] [address] [address] Shine Del Rosario Potassium [Moles/Vol] 4.3 mmol/L Normal 3.5-5.1 [facility] Comment on above: Performed By: #### P HVEN #### [facility] [address] [address] [address] Shine Del Rosario Sodium [Moles/Vol] 130 mmol/L Critically low 136-145 [facility] Comment on above: Performed By: #### P HVEN #### [facility] [address] [place] [address] Dr. Shine Del Rosario Urea nitrogen [Mass/Vol] 24.0 mg/dL Critically high 7.0-18.0 [facility] Comment on above: Performed By: #### P HVEN #### [facility] [address] [place] [address] Dr. Shine Del Rosario Urea nitrogen/Creatinine [Mass ratio] 28.6 mg/mg Normal [facility] Comment on above: Performed By: #### P HVEN #### [facility] [address] [place] [address] Dr. Shine Del Rosario BNPon 09-08-2021 Natriuretic peptide B (Bld) [Mass/Vol] 358.0 pg/mL Normal <=900.0 [facility] Comment on above: Performed By: #### P TT, PT #### [facility] [address] [address] [address] Shine Del Rosario CBC W MANUAL DIFFon 09-09-19 ATYPICAL LYMPH # Normal [facility] Comment on above: Performed By: #### P TT, PT #### [facility] [address] [address] [address] Shine Del Rosario ATYPICAL LYMPH % Normal [facility] Comment on above: Performed By: #### P TT, PT #### [facility] [address] [place] [address] Dr. Shine Del Rosario BAND # 0.6 103/ul Critically high 0.0-0.3 The [facility] Comment on above: Performed By: #### P TT, PT #### [facility] [address] [place] [address] Dr. Shine Del Rosario BAND % 5 % Normal 0-5 The [facility] Comment on above: Performed By: #### P TT, PT #### [facility] [address] [place] [address] Dr. Shine Del Rosario BASOM # 0.00 103/ul Normal 0.00-0.10 [facility] Comment on above: Performed By: #### P TT, PT #### [facility] [address] [place] [address] Dr. Shine Del Rosario BASOM % 0.0 % Critically low 0.2-2.0 [facility] Comment on above: Performed By: #### P TT, PT #### [facility] [address] [place] [address] Dr. Shine Del Rosario BLAST # Normal [facility] Comment on above: Performed By: #### P TT, PT #### [facility] [address] [place] [address] Dr. Shine Del Rosario BLAST % Normal The [facility] Comment on above: Performed By: #### P TT, PT #### [facility] [address] [place] [address] Dr. Shine Del Rosario CORRECTED WBC Normal 4.0-11.0 The [facility] Comment on above: Performed By: #### P TT, PT #### [facility] [address] [place] [address] Dr. Shine Del Rosario EOS # 0.60 103/ul Normal 0.00-0.70 The [facility] Comment on above: Performed By: #### P TT, PT #### [facility] [address] [place] [address] Dr. Shine Del Rosario EOS% 5.0 % Normal 0.9-7.0 The [facility] Comment on above: Performed By: #### P TT, PT #### [facility] [address] [address] [address] Shine Del Rosario HCT 25.4 % Critically low 36.0-48.0 [facility] Comment on above: Performed By: #### P TT, PT #### [facility] [address] [address] [address] Shine Del Rosario HGB 7.9 g/dl Critically low 12.0-16.0 [facility] Comment on above: Performed By: #### P TT, PT #### [facility] [address] [address] [address] Shine Del Rosario LYMPHM # 1.44 103/ul Normal 1.20-3.80 [facility] Comment on above: Performed By: #### P TT, PT #### [facility] [address] [place] [address] Dr. Shine Del Rosario LYMPHM% 12.0 % Critically low 20.5-60.0 [facility] Comment on above: Performed By: #### P TT, PT #### [facility] [address] [place] [address] Dr. Shine Del Rosario MCH 32.0 pg Normal 26.7-34.0 [facility] Comment on above: Performed By: #### P TT, PT #### [facility] [address] [place] [address] Dr. Shine Del Rosario MCHC 31.1 g/dl Normal 29.9-35.2 The [facility] Comment on above: Performed By: #### P TT, PT #### [facility] [address] [place] [address] Dr. Shine Del Rosario MCV 102.8 fL Critically high 81.0-99.0 [facility] Comment on above: Performed By: #### P TT, PT #### [facility] [address] [place] [address] Dr. Shine Del Rosario METAMYELOCYTE # Normal [facility] Comment on above: Performed By: #### P TT, PT #### [facility] [address] [place] [address] Dr. Shine Del Rosario METAMYELOCYTE % Normal [facility] Comment on above: Performed By: #### P TT, PT #### [facility] [address] [place] [address] Dr. Shine Del Rosario MONOM# 1.80 103/ul Critically high 0.30-0.80 [facility] Comment on above: Performed By: #### P TT, PT #### [facility] [address] [place] [address] Dr. Shine Del Rosario MONOM% 15.0 % Critically high 1.7-12.0 [facility] Comment on above: Performed By: #### P TT, PT #### [facility] [address] [place] [address] Dr. Shine Del Rosario MPV 8.9 fL Critically low 9.5-13.5 [facility] Comment on above: Performed By: #### P TT, PT #### [facility] [address] [place] [address] Dr. Shine Del Rosario MYELOCYTE # Normal [facility] Comment on above: Performed By: #### P TT, PT #### [facility] [address] [place] [address] Dr. Shine Del Rosario MYELOCYTE % Normal [facility] Comment on above: Performed By: #### P TT, PT #### [facility] [address] [place] [address] Dr. Shine Del Rosario NRBC Normal [facility] Comment on above: Performed By: #### P TT, PT #### [facility] [address] [place] [address] Dr. Shine Del Rosario PLT 428 103/ul Normal 150-450 [facility] Comment on above: Performed By: #### P TT, PT #### [facility] [address] [place] [address] Dr. Shine Del Rosario RBC 2.47 106/ul Critically low 4.20-5.40 [facility] Comment on above: Performed By: #### P TT, PT #### [facility] [address] [place] [address] Dr. Shine Del Rosario RDW 13.2 % Normal 11.0-15.0 [facility] Comment on above: Performed By: #### P TT, PT #### [facility] [address] [address] [address] Shine Del Rosario SEG # 7.56 103/ul Critically high 1.40-6.50 [facility] Comment on above: Performed By: #### P TT, PT #### [facility] [address] [address] [address] Shine Del Rosario SEG % 63.0 % Normal 43.0-75.0 [facility] Comment on above: Performed By: #### P TT, PT #### [facility] [address] [address] [address] Shine Del Rosario WBC 12.0 103/ul Critically high 4.0-11.0 [facility] Comment on above: Performed By: #### P TT, PT #### [facility] [address] [place] [address] Dr. Shine Del Rosario CTA CHEST WO W CONon 09-08-2 022 CTA CHEST WO W CON EXAMINATION: CTA RAFFY ST WO W CON HISTORY: SHORTNESS OF BREATH , recent fall with rib fractures and pneumothorax, elevated d-dimer COMPARISON: CT chest without contrast 09/05/2021 TECHNIQUE: Multi-planar CT images were created with IV contrast. Axial, Coronal, and Sagittal images. Dose reduction techniques were achieved by using automated exposure control and/or adjustment of mA and/or kV according to patient size and/or use of iterative reconstruction technique. 3-D reconstruction was performed on a separate workstation. FINDINGS: VASCULATURE: No pulmonary embolism or abnormal opacity. LUNGS: Partial collapse of the right lower lobe basilar segments, likely passive atelectasis. Trace amount of atelectasis within left lung base. PLEURA: Bilateral pleural effusions, 2.2 cm in thickness on right, 0.4 cm on left. No pneumothorax. SAHARA: No mass or adenopathy. MEDIASTINUM: No mass or adenopathy. CARDIAC: No enlargement, pericardial effusion, or pericardial thickening. AORTA: No aneurysm or dissection. CHEST WALL: No mass or axillary adenopathy. BONES: Posterior lateral right sixth through 10th rib fractures with complete bone offset of C6 through ninth ribs. LIMITED ABDOMEN: No suspicious findings. Limited images of the upper abdomen. OTHER: Negative. IMPRESSION: 1. No pulmonary embolism. 2. No pneumothorax. 3. Large right, tiny left pleural effusions with suspected adjacent passive atelectasis. Infectious infiltrate is not completely excluded. 4. Multiple acute right displaced rib fractures, not significantly changed. 5. Resolved subcutaneous emphysema. Electronically authenticated by: BEBETO PUTNAM Date: 2021-09-08 11:25 Normal [facility] D-DIMERon 09-08-2021 D-DIMER 4.13 mg/L FEU Critically high 0.19-0.50 [facility] Comment on above: Performed By: #### P TT, PT #### [facility] [address] [address] [address] Shine Del Rosario D-DIMER COMMENTS SEE BELOW Normal [facility] Comment on above: Result Comment: Incr eases in D-Dimer concentration observed with thromboembolic events can be variable due to localization, size, and age of the thrombus. Therefore, a thromboembolic event cannot be diagnosed with certainty on the basis of the reference range. D-Dimers may also be elevated for a variety of disorders including: advanced age, , coronary disease, cancer, liver disease, infection, inflammation, hematoma, DIC, trauma, post-surgery, diabetes, thrombolytic or anticoagulant therapy, stress, and generalized hospitalization. Performed By: #### P TT, PT #### [facility] [address] [address] [address] Shine Del Rosario ECHOCARDIO M/2D COMPLETEon 0 09-08-2021 ECHOCARDIO M/2D COMPLETE Patient: CATHERINE ADAMSON Exam Date: 09/08/2021 : 1960 Gender:F Ordering : DR LENY MCCULLOUGH . Admission #: [id number] Family : DR XIMENA ASTUDILLO M.D. Order #: [id number] CLICK HERE TO VIEW EXAM ECHOCARDIOGRAM REPORT PROCEDURE: CARDIO PULMONARY ECHOCARDIO M/2D COMP INDICATIONS: Shortness of breath, h/o SC, PTCA, hypertension, COPD COMPARISON: None. DESCRIPTION: COMPLETE ECHOCARDIOGRAM Real-time transthoracic echocardiography with 2D, M-mode, spectral and color flow Doppler performed. QUALITY: Technical quality was good. LEFT VENTRICLE: Normal chamber size. Mild concentric left ventricular hypertrophy. No regional wall motion abnormalities. LV EF: Global left ventricular systolic function is hyperdynamic; visually estimated ejection fraction is 65 to 70%. No significant wall motion abnormalities. DIASTOLIC: Normal diastolic function. ATRIAL SEPTUM: Inadequately seen. LEFT ATRIUM: Normal chamber size. RIGHT ATRIUM: Normal chamber size. RIGHT VENTRICLE: Appears enlarged. Systolic function is difficult to assess but appears reduced. TRICUSPID VALVE: Normal mobility and thickness. No stenosis with mild regurgitation. No evidence of pulmonary hypertension. RVSP 32 mmHg MITRAL VALVE: Normal mobility and thickness. No evidence of mitral valve stenosis. Mild mitral annular calcification. Trivial mitral regurgitation. AORTIC VALVE: Normal trileaflet appearance. Moderately calcified aortic valve. Doppler velocity suggest mild aortic valve stenosis. Velocities may be falsely elevated due to hyperdynamic state. No aortic regurgitation. AORTIC ROOT: Normal diameter and appearance. PULMONIC VALVE: Not well visualized. No stenosis. No regurgitation. PERICARDIUM: No evidence of pericardial effusion. IVC: Collapses with inspirations. IVC is normal in size. CONCLUSION: Global left ventricular systolic function is hyperdynamic; visually estimated ejection fraction is 65 to 70%. No significant wall motion abnormalities. Mild left ventricular hypertrophy. Normal diastolic function. The right ventricle appears enlarged; systolic function appears reduced. Mild tricuspid regurgitation. Mild aortic valve stenosis. Adult Echocardiography Procedure Report Left Ventricle LVEDD (3.7 - 5.6 cm): 4.71 cm LVESD (2.2 - 4.0 cm): 2.83 cm LVIVS thickness (0.6 - 1.2 cm): 1.21 cm LVPW thickness (0.5 - 1.0 cm): 1.10 cm e': 7.24 cm/s E - e': 9.10 LVOT Area (cm2): 4.52 cm2 LVOT Diameter 2.40 cm Left Ventricular Ejection Fraction: 70.60 % Left Atrium LA Volume Index (2D A2C): 22.70 ml/m2 Left Atrium Systolic Dimension: 5.30 cm Left Atrium Systolic Area(A2C): 16.50 cm2 Left Atrium Systolic Volume(A2C): 35860 mm3 Mitral Valve MV E to A Ratio: 0.70 Mitral Valve A-Wave Peak Velocity: 95.80 cm/s Mitral Valve E-Wave Peak Velocity: 65.60 cm/s Deceleration Time: 296 ms Right Ventricle Aorta AO Root Diam: 3.50 cm Aortic Valve Peak Velocity (Antegrade Flow): 153.00 cm/s, 162.00 cm/s AoV Area (Peak Francesco): 2.63 cm2 AoV Area (VTI): 3.29 cm2 Peak Velocity(Antegrade Flow): 215.00 cm/s Peak Gradient(Antegrade Flow): 18 mm[Hg] Mean Velocity(Antegrade Flow): 139.00 cm/s Mean Gradient(Antegrade Flow): 9 mm[Hg] Velocity Time Integral: 35.40 cm Tricuspid Valve Pulmonic Valve Peak Velocity: 79.90 cm/s Peak Gradient: 3 mm[Hg] Right Atrium Dictated by: Sarah Garcia M.D. on 09/08/2021 at 14:20 Approved by: Sarah Garcia M.D. on 09/08/2021 at 14:24 Normal [facility] LIVER PROFILEon 09-08-2021 Albumin [Mass/Vol] 3.0 g/dL Critically low 3.4-5.0 [facility] Comment on above: Performed By: #### L IVER #### [facility] [address] [place] [address] Dr. Shine Del Rosario Albumin/Globulin [Mass ratio] 1.0 {ratio} Normal [facility] Comment on above: Performed By: #### L IVER #### [facility] [address] [place] [address] Dr. Shine Del Rosario ALP [Catalytic activity/Vol] 108 U/L Normal 46-116 [facility] Comment on above: Performed By: #### L IVER #### [facility] [address] [address] [address] Shine Del Rosario ALT [Catalytic activity/Vol] 52 U/L Normal 14-59 [facility] Comment on above: Performed By: #### L IVER #### [facility] [address] [address] [address] Shine Del Rosario AST [Catalytic activity/Vol] 50 U/L Critically high 15-37 [facility] Comment on above: Performed By: #### L IVER #### [facility] [address] [address] [address] Shine Del Rosario BILI, CONJUGATED 0.3 mg/dL Critically high 0.0-0.2 [facility] Comment on above: Performed By: #### L IVER #### [facility] [address] [address] [address] Shine Del Rosario Bilirubin [Mass/Vol] 0.9 mg/dL Normal 0.2-1.0 [facility] Comment on above: Performed By: #### L IVER #### [facility] [address] [address] [address] Shine Del Rosario Globulin (S) [Mass/Vol] 3.1 g/dL Normal [facility] Comment on above: Performed By: #### L IVER #### [facility] [address] [place] [address] Dr. Shine Del Rosario Protein [Mass/Vol] 6.1 g/dL Normal 6.1-8.2 [facility] Comment on above: Performed By: #### L IVER #### [facility] [address] [place] [address] Dr. Shine Del Rosario OCC BLD IMMUNO SCREENon 08-13 OCCULT BLOOD Negative Normal NEGATIVE [facility] Comment on above: Performed By: #### P TT, PT #### [facility] [address] [place] [address] Dr. Shine Del Rosario OSMOLALITY URINEon Osmolality, Urine 334 mOsmol/kg Normal [facility] Comment on above: Result Comment: 24 h r : 300 - 900 Random: 50 - 1400 After 12hr fluid restriction: >850 Performed By: #### B MP #### [facility] [address] [place] [address] Dr. Shine Del Rosario PROF CHEM 8 (BAS METB)on Anion gap [Moles/Vol] 13.7 mmol/L Normal [facility] Comment on above: Performed By: #### P HVEN #### [facility] [address] [place] [address] Dr. Shine Del Rosario Calcium [Mass/Vol] 8.6 mg/dL Normal 8.5-10.1 [facility] Comment on above: Performed By: #### P HVEN #### [facility] [address] [address] [address] Shine Del Rosario Chloride [Moles/Vol] 95 mmol/L Critically low 98-107 [facility] Comment on above: Performed By: #### P HVEN #### [facility] [address] [address] [address] Shine Del Rosario CO2 [Moles/Vol] 24.2 mmol/L Normal 21.0-32.0 [facility] Comment on above: Performed By: #### P HVEN #### [facility] [address] [place] [address] Dr. Shine Del Rosario Creatinine [Mass/Vol] 0.93 mg/dL Normal 0.55-1.02 [facility] Comment on above: Performed By: #### P HVEN #### [facility] [address] [place] [address] Dr. Shine Del Rosario EGFR-AF BANGLADESHI >60 Normal >=60 [facility] Comment on above: Performed By: #### P HVEN #### [facility] [address] [place] [address] Dr. Shine Del Rosario EGFR-NON AF BANGLADESHI >60 Normal >=60 [facility] Comment on above: Performed By: #### P HVEN #### [facility] [address] [place] [address] Dr. Shine Del Rosario Glucose [Mass/Vol] 122 mg/dL Critically high 74-106 [facility] Comment on above: Performed By: #### P HVEN #### [facility] [address] [place] [address] Dr. Shine Del Rosario Potassium [Moles/Vol] 4.7 mmol/L Normal 3.5-5.1 [facility] Comment on above: Performed By: #### P HVEN #### [facility] [address] [place] [address] Dr. Shine Del Rosario Sodium [Moles/Vol] 128 mmol/L Critically low 136-145 [facility] Comment on above: Performed By: #### P HVEN #### [facility] [address] [address] [address] Shine Del Rosario Urea nitrogen [Mass/Vol] 25.0 mg/dL Critically high 7.0-18.0 [facility] Comment on above: Performed By: #### P HVEN #### [facility] [address] [address] [address] Shine Del Rosario Urea nitrogen/Creatinine [Mass ratio] 26.8 mg/mg Normal [facility] Comment on above: Performed By: #### P HVEN #### [facility] [address] [address] [address] Shine Del Rosario Anion gap [Moles/Vol] 14.5 mmol/L Normal [facility] Comment on above: Performed By: #### B MP #### [facility] [address] [address] [address] Shine Del Rosario Calcium [Mass/Vol] 8.5 mg/dL Normal 8.5-10.1 [facility] Comment on above: Performed By: #### B MP #### [facility] [address] [address] [address] Shine Del Rosario Chloride [Moles/Vol] 94 mmol/L Critically low 98-107 [facility] Comment on above: Performed By: #### B MP #### [facility] [address] [address] [address] Shine Del Rosario CO2 [Moles/Vol] 22.1 mmol/L Normal 21.0-32.0 The [facility] Comment on above: Performed By: #### B MP #### [facility] [address] [address] [address] Shine Del Rosario Creatinine [Mass/Vol] 1.42 mg/dL Critically high 0.55-1.02 [facility] Comment on above: Performed By: #### B MP #### [facility] [address] [address] [address] Shine Del Rosario EGFR-AF BANGLADESHI 45 mL/min/1.73m2 Critically low >=60 [facility] Comment on above: Performed By: #### B MP #### [facility] [address] [address] [address] Shine Del Rosario EGFR-NON AF BANGLADESHI 37 mL/min/1.73m2 Critically low >=60 [facility] Comment on above: Performed By: #### B MP #### [facility] [address] [address] [address] Shine Del Rosario Glucose [Mass/Vol] 123 mg/dL Critically high 74-106 [facility] Comment on above: Performed By: #### B MP #### [facility] [address] [address] [address] Shine Del Rosario Potassium [Moles/Vol] 4.6 mmol/L Normal 3.5-5.1 [facility] Comment on above: Performed By: #### B MP #### [facility] [address] [place] [address] Dr. Shine Del Rosario Sodium [Moles/Vol] 126 mmol/L Critically low 136-145 [facility] Comment on above: Performed By: #### B MP #### [facility] [address] [address] [address] Shine Del Rosario Urea nitrogen [Mass/Vol] 28.0 mg/dL Critically high 7.0-18.0 [facility] Comment on above: Performed By: #### B MP #### [facility] [address] [place] [address] Dr. Shine Del Rosario Urea nitrogen/Creatinine [Mass ratio] 19.7 mg/mg Normal [facility] Comment on above: Performed By: #### B MP #### [facility] [address] [address] [address] Shine Del Rosario CBC W MANUAL DIFFon 09-08-19 22 ATYPICAL LYMPH # Normal [facility] Comment on above: Performed By: #### P TT, PT #### [facility] [address] [place] [address] Dr. Shine Del Rosario ATYPICAL LYMPH % Normal [facility] Comment on above: Performed By: #### P TT, PT #### [facility] [address] [place] [address] Dr. Shine Del Rosario BAND # 0.4 103/ul Critically high 0.0-0.3 [facility] Comment on above: Performed By: #### P TT, PT #### [facility] [address] [place] [address] Dr. Shine Del Rosario BAND % 3 % Normal 0-5 The [facility] Comment on above: Performed By: #### P TT, PT #### [facility] [address] [place] [address] Dr. Shine Del Rosario BASOM # 0.00 103/ul Normal 0.00-0.10 [facility] Comment on above: Performed By: #### P TT, PT #### [facility] [address] [place] [address] Dr. Shine Del Rosario BASOM % 0.0 % Critically low 0.2-2.0 [facility] Comment on above: Performed By: #### P TT, PT #### [facility] [address] [place] [address] Dr. Shine Del Rosario BLAST # Normal [facility] Comment on above: Performed By: #### P TT, PT #### [facility] [address] [place] [address] Dr. Shine Del Rosario BLAST % Normal [facility] Comment on above: Performed By: #### P TT, PT #### [facility] [address] [place] [address] Dr. Shine Del Rosario CORRECTED WBC Normal 4.0-11.0 [facility] Comment on above: Performed By: #### P TT, PT #### [facility] [address] [place] [address] Dr. Shine Del Rosario EOS # 0.24 103/ul Normal 0.00-0.70 [facility] Comment on above: Performed By: #### P TT, PT #### [facility] [address] [place] [address] Dr. Shine Del Rosario EOS% 2.0 % Normal 0.9-7.0 [facility] Comment on above: Performed By: #### P TT, PT #### [facility] [address] [address] [address] Shine Del Rosario HCT 24.9 % Critically low 36.0-48.0 [facility] Comment on above: Performed By: #### P TT, PT #### [facility] [address] [place] [address] Dr. Shine Del Rosario HGB 7.9 g/dl Critically low 12.0-16.0 [facility] Comment on above: Performed By: #### P TT, PT #### [facility] [address] [place] [address] Dr. Shine Del Rosario LYMPHM # 1.33 103/ul Normal 1.20-3.80 [facility] Comment on above: Performed By: #### P TT, PT #### [facility] [address] [place] [address] Dr. Shine Del Rosario LYMPHM% 11.0 % Critically low 20.5-60.0 [facility] Comment on above: Performed By: #### P TT, PT #### [facility] [address] [place] [address] Dr. Shine Del Rosario MCH 32.4 pg Normal 26.7-34.0 [facility] Comment on above: Performed By: #### P TT, PT #### [facility] [address] [place] [address] Dr. Shine Del Rosario MCHC 31.7 g/dl Normal 29.9-35.2 [facility] Comment on above: Performed By: #### P TT, PT #### [facility] [address] [place] [address] Dr. Shine Del Rosario MCV 102.0 fL Critically high 81.0-99.0 [facility] Comment on above: Performed By: #### P TT, PT #### [facility] [address] [place] [address] Dr. Shine Del Rosario METAMYELOCYTE # Normal [facility] Comment on above: Performed By: #### P TT, PT #### [facility] [address] [place] [address] Dr. Shine Del Rosario METAMYELOCYTE % Normal [facility] Comment on above: Performed By: #### P TT, PT #### [facility] [address] [address] [address] Shine Del Rosario MONOM# 1.81 103/ul Critically high 0.30-0.80 [facility] Comment on above: Performed By: #### P TT, PT #### [facility] [address] [address] [address] Shine Del Rosario MONOM% 15.0 % Critically high 1.7-12.0 [facility] Comment on above: Performed By: #### P TT, PT #### [facility] [address] [address] [address] Shine Del Rosario MPV 9.0 fL Critically low 9.5-13.5 [facility] Comment on above: Performed By: #### P TT, PT #### [facility] [address] [place] [address] Dr. Shine Del Rosario MYELOCYTE # Normal [facility] Comment on above: Performed By: #### P TT, PT #### [facility] [address] [address] [address] Shine Del Rosario MYELOCYTE % Normal [facility] Comment on above: Performed By: #### P TT, PT #### [facility] [address] [place] [address] Dr. hSine Del Rosario NRBC Normal [facility] Comment on above: Performed By: #### P TT, PT #### [facility] [address] [address] [address] Shine Del Rosario PLT 381 103/ul Normal 150-450 [facility] Comment on above: Performed By: #### P TT, PT #### [facility] [address] [address] [address] Shine Del Rosario RBC 2.44 106/ul Critically low 4.20-5.40 [facility] Comment on above: Performed By: #### P TT, PT #### [facility] [address] [place] [address] Dr. Shine Del Rosario RDW 12.7 % Normal 11.0-15.0 [facility] Comment on above: Performed By: #### P TT, PT #### [facility] [address] [address] [address] Shine Del Rosario SEG # 8.35 103/ul Critically high 1.40-6.50 [facility] Comment on above: Performed By: #### P TT, PT #### [facility] [address] [place] [address] Dr. Shine Del Rosario SEG % 69.0 % Normal 43.0-75.0 [facility] Comment on above: Performed By: #### P TT, PT #### [facility] [address] [place] [address] Dr. Shine Del Rosario WBC 12.1 103/ul Critically high 4.0-11.0 [facility] Comment on above: Performed By: #### P TT, PT #### [facility] [address] [place] [address] Dr. Shine Del Rosario OSMOLALITYon 09-07-2021 Osmolality [Osmolality] 253 mosm/kg Critically low 280-301 [facility] Comment on above: Performed By: #### L IVER #### [facility] [address] [place] [address] Dr. Shine Del Rosario PROF CHEM 8 (BAS METB)on Anion gap [Moles/Vol] 12.6 mmol/L Normal [facility] Comment on above: Performed By: #### P TT, PT #### [facility] [address] [place] [address] Dr. Shine Del Rosario Calcium [Mass/Vol] 8.4 mg/dL Critically low 8.5-10.1 [facility] Comment on above: Performed By: #### P TT, PT #### [facility] [address] [place] [address] Dr. Shine Del Rosario Chloride [Moles/Vol] 95 mmol/L Critically low 98-107 [facility] Comment on above: Performed By: #### P TT, PT #### [facility] [address] [place] [address] Dr. Shine Del Rosario CO2 [Moles/Vol] 24.7 mmol/L Normal 21.0-32.0 [facility] Comment on above: Performed By: #### P TT, PT #### [facility] [address] [address] [address] Shine Del Rosario Creatinine [Mass/Vol] 1.02 mg/dL Normal 0.55-1.02 [facility] Comment on above: Performed By: #### P TT, PT #### [facility] [address] [address] [address] Shine Del Rosario EGFR-AF BANGLADESHI >60 Normal >=60 [facility] Comment on above: Performed By: #### P TT, PT #### [facility] [address] [address] [address] Shine Del Rosario EGFR-NON AF BANGLADESHI 55 mL/min/1.73m2 Critically low >=60 [facility] Comment on above: Performed By: #### P TT, PT #### [facility] [address] [place] [address] Dr. Shine Del Rosario Glucose [Mass/Vol] 116 mg/dL Critically high 74-106 T [facility] Comment on above: Performed By: #### P TT, PT #### [facility] [address] [place] [address] Dr. Shine Del Rosario Potassium [Moles/Vol] 4.3 mmol/L Normal 3.5-5.1 [facility] Comment on above: Performed By: #### P TT, PT #### [facility] [address] [address] [address] Shine Del Rosario Sodium [Moles/Vol] 128 mmol/L Critically low 136-145 Th e [facility] Comment on above: Performed By: #### P TT, PT #### [facility] [address] [address] [address] Shine Del Rosario Urea nitrogen [Mass/Vol] 20.0 mg/dL Critically high 7.0-18.0 [facility] Comment on above: Performed By: #### P TT, PT #### [facility] [address] [place] [address] Dr. Shine Del Rosario Urea nitrogen/Creatinine [Mass ratio] 19.6 mg/mg Normal The [facility] Comment on above: Performed By: #### P TT, PT #### [facility] [address] [address] [address] Shine Del Rosario XR CHEST 1 Von 09-07-2021 XR CHEST 1 V EXAM: XR CHEST 1 V HISTORY: Traumatic pneumothorax. COMPARISON: Chest radiograph, yesterday at 5:20 AM. TECHNIQUE: Portable view obtained. FINDINGS: Normal heart size. Lung volumes are low. Persistent atelectasis at the right base. Increasing atelectasis now present in the left lower lobe. No appreciable pneumothorax. IMPRESSION: Bibasilar atelectasis stable on the right and increasing in the left lower lobe since yesterday's exam. No appreciable pneumothorax. Electronically authenticated by: GAMAL ARRIAZA Date: 2021-09-07 06:32 Normal The [facility] CBC AUTO DIFFon 09-06-2021 BASO # 0.1 103/ul Normal 0.0-0.1 The [facility] Comment on above: Performed By: #### P TT, PT #### [facility] [address] [address] [address] Shine Del Rosario Basophils/100 WBC (Bld) 0.7 % Normal 0.2-2.0 The [facility] Comment on above: Performed By: #### P TT, PT #### [facility] [address] [place] [address] Dr. Shine Del Rosario EO # 0.3 103/ul Normal 0.0-0.7 The [facility] Comment on above: Performed By: #### P TT, PT #### [facility] [address] [address] [address] Shine Del Rosario Eosinophils/100 WBC (Bld) 3.0 % Normal 0.9-7.0 The [facility] Comment on above: Performed By: #### P TT, PT #### [facility] [address] [place] [address] Dr. Shine Del Rosario Erythrocyte distribution width (RBC) [Ratio] 12.3 % Normal 11.0-15.0 The [facility] Comment on above: Performed By: #### P TT, PT #### [facility] [address] [place] [address] Dr. Shine Del Rosario Hematocrit (Bld) [Volume fraction] 22.2 % Critically low 36.0-48.0 [facility] Comment on above: Result Comment: repe ated Performed By: #### P TT, PT #### [facility] [address] [place] [address] Dr. Shine Del Rosario Hemoglobin (Bld) [Mass/Vol] 7.3 g/dL Critically low 12.0-16.0 [facility] Comment on above: Performed By: #### P TT, PT #### [facility] [address] [place] [address] Dr. Shine Del Rosario IG # 0.18 10e3/ul Critically high 0.00-0.03 [facility] Comment on above: Performed By: #### P TT, PT #### [facility] [address] [place] [address] Dr. Shine Del Rosario IG % 2.1 % Critically high 0.0-0.5 [facility] Comment on above: Performed By: #### P TT, PT #### [facility] [address] [place] [address] Dr. Shine Del Rosario LYMPH # 1.5 103/ul Normal 1.2-3.8 [facility] Comment on above: Performed By: #### P TT, PT #### [facility] [address] [place] [address] Dr. Shine Del Rosario Lymphocytes/100 WBC (Bld) 17.7 % Critically low 20.5-60.0 [facility] Comment on above: Performed By: #### P TT, PT #### [facility] [address] [place] [address] Dr. Shine Del Rosario MANUAL DIFF REQ NO Normal The [facility] Comment on above: Performed By: #### P TT, PT #### [facility] [address] [place] [address] Dr. Shine Del Rosario MCH (RBC) [Entitic mass] 32.0 pg Normal 26.7-34.0 [facility] Comment on above: Performed By: #### P TT, PT #### [facility] [address] [place] [address] Dr. Shine Del Rosario MCHC (RBC) [Mass/Vol] 32.9 g/dL Normal 29.9-35.2 The [facility] Comment on above: Performed By: #### P TT, PT #### [facility] [address] [place] [address] Dr. Shine Del Rosario MCV (RBC) [Entitic vol] 97.4 fL Normal 81.0-99.0 [facility] Comment on above: Performed By: #### P TT, PT #### [facility] [address] [place] [address] Dr. Shine Del Rosario MONO # 1.2 103/ul Critically high 0.3-0.8 [facility] Comment on above: Performed By: #### P TT, PT #### [facility] [address] [place] [address] Dr. Shine Del Rosario Monocytes/100 WBC (Bld) 14.1 % Critically high 1.7-12.0 [facility] Comment on above: Performed By: #### P TT, PT #### [facility] [address] [place] [address] Dr. Shine Del Rosario NEUT # 5.4 103/ul Normal 1.4-6.5 [facility] Comment on above: Performed By: #### P TT, PT #### [facility] [address] [place] [address] Dr. Shine Del Rosario Neutrophils/100 WBC (Bld) 62.4 % Normal 43.0-75.0 The [facility] Comment on above: Performed By: #### P TT, PT #### [facility] [address] [place] [address] Dr. Shine Del Rosario Platelet mean volume (Bld) [Entitic vol] 8.9 fL Critically low 9.5-13.5 [facility] Comment on above: Performed By: #### P TT, PT #### [facility] [address] [place] [address] Dr. Shine Del Rosario PLT 310 103/ul Normal 150-450 [facility] Comment on above: Performed By: #### P TT, PT #### [facility] [address] [address] [address] Shine Del Rosario RBC 2.28 106/ul Critically low 4.20-5.40 [facility] Comment on above: Performed By: #### P TT, PT #### [facility] [address] [address] [address] Shine Del Rosario WBC 8.7 103/ul Normal 4.0-11.0 [facility] Comment on above: Performed By: #### P TT, PT #### [facility] [address] [address] [address] Shine Del Rosario IRON AND TIBCon 09-06-2021 % SATURATION 13.1 % Normal [facility] Comment on above: Performed By: #### P HVEN #### [facility] [address] [place] [address] Dr. Sihne Del Rosario Iron [Mass/Vol] 30.0 ug/dL Critically low 50.0-170.0 [facility] Comment on above: Performed By: #### P HVEN #### [facility] [address] [place] [address] Dr. Shine Del Rosario TIBC DIRECT 229.0 ug/dL Critically low 250.0-450. 0 [facility] Comment on above: Performed By: #### P HVEN #### [facility] [address] [place] [address] Dr. Shine Del Rosario MRI LSPINE WO CONon 09-07-19 MRI LSPINE WO CON EXAMINATION: MRI LSP INE WO CON HISTORY: Pain COMPARISON: No relevant comparison available. TECHNIQUE: A variety of imaging planes and parameters were utilized for visualization of suspected pathology. FINDINGS: For the purposes of numbering, sagittal T2 image # 8 extends from the T10 vertebral body superiorly to the S3 level inferiorly. PARASPINAL AREA: Normal with no visible mass. BONES: There is a very heterogeneous appearance of the visualized bones. 60% anterior wedge compression fracture of the T12 vertebral body. Linear hypointense signal abnormality through the superior vertebral body consistent with a fracture planes. Small amount of surrounding linear increased T2 and STIR pulse sequence signal suggesting a small amount of edema. Mild degenerative spondylosis CORD/CAUDA EQUINA: Normal caliber, contour, and signal intensity. DISC LEVELS: 12-L1: No significant disc/facet abnormality, spinal stenosis, or foraminal stenosis. L1-L2: No significant disc/facet abnormality, spinal stenosis, or foraminal stenosis. L2-L3: No significant disc/facet abnormality, spinal stenosis, or foraminal stenosis. L3-L4: No significant disc/facet abnormality, spinal stenosis, or foraminal stenosis. L4-L5: Early degenerative disc disease is present without focal protrusion or neural impingement. L5-S1: No significant disc/facet abnormality, spinal stenosis, or foraminal stenosis. IMPRESSION: Heterogeneous appearance of the marrow. Indeterminate, consideration should be given to metastatic disease 60% T12 anterior wedge compression fracture. The amount of edema suggests a subacute or chronic fracture Electronically authenticated by: PAWAN GEORGE Date: 2021-09-06 12:53 Normal The [facility] PROF CHEM 8 (BAS METB)on Anion gap [Moles/Vol] 10.9 mmol/L Normal [facility] Comment on above: Performed By: #### B MP #### [facility] [address] [address] [address] Shine Del Rosario Calcium [Mass/Vol] 8.1 mg/dL Critically low 8.5-10.1 [facility] Comment on above: Performed By: #### B MP #### [facility] [address] [address] [address] Shine Del Rosario Chloride [Moles/Vol] 95 mmol/L Critically low 98-107 [facility] Comment on above: Performed By: #### B MP #### [facility] [address] [address] [address] Shine Del Rosario CO2 [Moles/Vol] 25.6 mmol/L Normal 21.0-32.0 [facility] Comment on above: Performed By: #### B MP #### [facility] [address] [address] [address] Shine Del Rosario Creatinine [Mass/Vol] 0.77 mg/dL Normal 0.55-1.02 [facility] Comment on above: Performed By: #### B MP #### [facility] [address] [address] [address] Shine Del Rosario EGFR-AF BANGLADESHI >60 Normal >=60 [facility] Comment on above: Performed By: #### B MP #### [facility] [address] [address] [address] Shine Del Rosario EGFR-NON AF BANGLADESHI >60 Normal >=60 [facility] Comment on above: Performed By: #### B MP #### [facility] [address] [address] [address] Shine Del Rosario Glucose [Mass/Vol] 103 mg/dL Normal 74-106 [facility] Comment on above: Performed By: #### B MP #### [facility] [address] [address] [address] Shine Del Rosario Potassium [Moles/Vol] 3.5 mmol/L Normal 3.5-5.1 [facility] Comment on above: Performed By: #### B MP #### [facility] [address] [address] [address] Shine Del Rosario Sodium [Moles/Vol] 128 mmol/L Critically low 136-145 [facility] Comment on above: Performed By: #### B MP #### [facility] [address] [address] [address] Shine Del Rosario Urea nitrogen [Mass/Vol] 14.0 mg/dL Normal 7.0-18.0 [facility] Comment on above: Performed By: #### B MP #### [facility] [address] [address] [address] Shine Del Rosario Urea nitrogen/Creatinine [Mass ratio] 18.2 mg/mg Normal [facility] Comment on above: Performed By: #### B MP #### [facility] [address] [place] [address] Dr. Shine Del Rosario US SINGLE QUAD RT UPPERon US SINGLE QUAD RT UPPER EXAMINATION: US SINGLE QUAD RT UPPER HISTORY: SHORTNESS OF BREATH COMPARISON: No relevant comparison available. FINDINGS: The liver is normal in size and contour measuring 15.7 cm in length. Diffuse increase in hepatic echotexture. No focal hepatic mass. Hepatopedal flow in the main portal vein with a velocity of 46 cm/s. The gallbladder is partially distended. The gallbladder wall measures 1.6 mm, normal. No pericholecystic fluid or cholelithiasis. The common bile duct is not definitively seen. The pancreas is not visualized due to bowel gas. The right kidney is normal in contour measuring 8.6 x 5.3 x 5.1 cm.r the cortex measures 1.2 cm thick. No solid mass or hydronephrosis. IMPRESSION: Increased hepatic echotexture suggesting hepatic steatosis Electronically authenticated by: PAWAN GEORGE Date: 2021-09-06 11:01 Normal [facility] XR CHEST 1 Von 09-06-2021 XR CHEST 1 V EXAM: XR CHEST 1 V 11:20 PM EDT [id number] CLINICAL STATEMENT: Traumatic pneumothorax COMPARISON: 09/05/2021 TECHNIQUE: Single AP radiograph of the chest is submitted. FINDINGS: There is right lower lobe atelectasis and/or airspace disease. Right posterior lateral fractures. No pneumothorax. The cardiac silhouette is normal. The costophrenic recesses are sharp. The bony elements are unremarkable. IMPRESSION: Right lower lobe atelectasis and/or airspace disease. Right posterior lateral fractures. No pneumothorax. FOLLOW-UP: Follow-up as clinically indicated. Electronically authenticated by: RITIKA HILLIARD Date: 2021-09-06 06:05 Normal The [facility] BNPon 09-05-2021 Natriuretic peptide B (Bld) [Mass/Vol] 744.0 pg/mL Normal <=900.0 [facility] Comment on above: Performed By: #### B MP #### [facility] [address] [address] [address] Shine Del Rosario CARDIAC WILD ADMITon 022 CK [Catalytic activity/Vol] 211 U/L Critically high 26-192 [facility] Comment on above: Performed By: #### B MP #### [facility] [address] [address] [address] Shine Del Rosario CK.MB [Mass/Vol] 2.15 ng/mL Normal <=3.60 The [facility] Comment on above: Performed By: #### B MP #### [facility] [address] [place] [address] Dr. Shine Del Rosario HSTROP 12.4 pg/mL Normal 4.0-51.3 The [facility] Comment on above: Result Comment: CUT- OFF POINTS HAVE BEEN ESTABLISHED BASED ON THE FOURTH UNIVERSAL DEFINITIONS OF MYOCARDIAL INFARCTION. THE UPPER REFERENCE LIMIT (URL) OF TROPONIN, DEFINED THE 99TH PERCENTILE OF cTnI DISTRIBUTION IN A REFERENCE POPULATION, HAS BEEN CONFIRMED THE DECISION THRESHOLD FOR SC DIAGNOSIS. Performed By: #### B MP #### [facility] [address] [place] [address] Dr. Shine Del Rosario YANG 176 ng/mL Critically high 9-82 The [facility] Comment on above: Performed By: #### B MP #### [facility] [address] [place] [address] Dr. Shine Del Rosario CBC AUTO DIFFon 09-05-2021 BASO # 0.0 103/ul Normal 0.0-0.1 [facility] Comment on above: Performed By: #### B MP #### [facility] [address] [place] [address] Dr. Shine Del Rosario Basophils/100 WBC (Bld) 0.3 % Normal 0.2-2.0 [facility] Comment on above: Performed By: #### B MP #### [facility] [address] [place] [address] Dr. Shine Del Rosario EO # 0.1 103/ul Normal 0.0-0.7 The [facility] Comment on above: Performed By: #### B MP #### [facility] [address] [place] [address] Dr. Shine Del Rosario Eosinophils/100 WBC (Bld) 0.4 % Critically low 0.9-7.0 The [facility] Comment on above: Performed By: #### B MP #### [facility] [address] [place] [address] Dr. Shine Del Rosario Erythrocyte distribution width (RBC) [Ratio] 12.0 % Normal 11.0-15.0 The [facility] Comment on above: Performed By: #### B MP #### [facility] [address] [place] [address] Dr. Shine Del Rosario Hematocrit (Bld) [Volume fraction] 25.8 % Critically low 36.0-48.0 [facility] Comment on above: Performed By: #### B MP #### [facility] [address] [place] [address] Dr. Shine Del Rosario Hemoglobin (Bld) [Mass/Vol] 8.8 g/dL Critically low 12.0-16.0 [facility] Comment on above: Performed By: #### B MP #### [facility] [address] [place] [address] Dr. Shine Del Rosario IG # 0.19 10e3/ul Critically high 0.00-0.03 [facility] Comment on above: Performed By: #### B MP #### [facility] [address] [place] [address] Dr. Shine Del Rosario IG % 1.6 % Critically high 0.0-0.5 [facility] Comment on above: Performed By: #### B MP #### [facility] [address] [place] [address] Dr. Shine Del Rosario LYMPH # 1.1 103/ul Critically low 1.2-3.8 [facility] Comment on above: Performed By: #### B MP #### [facility] [address] [place] [address] Dr. Shine Del Rosario Lymphocytes/100 WBC (Bld) 9.9 % Critically low 20.5-60.0 [facility] Comment on above: Performed By: #### B MP #### [facility] [address] [place] [address] Dr. Shine Del Rosario MANUAL DIFF REQ NO Normal [facility] Comment on above: Performed By: #### B MP #### [facility] [address] [place] [address] Dr. Shine Del Rosario MCH (RBC) [Entitic mass] 32.2 pg Normal 26.7-34.0 [facility] Comment on above: Performed By: #### B MP #### [facility] [address] [address] [address] Shine Del Rosario MCHC (RBC) [Mass/Vol] 34.1 g/dL Normal 29.9-35.2 [facility] Comment on above: Performed By: #### B MP #### [facility] [address] [address] [address] Shine Del Rosario MCV (RBC) [Entitic vol] 94.5 fL Normal 81.0-99.0 The [facility] Comment on above: Performed By: #### B MP #### [facility] [address] [address] [address] Shine Del Rosario MONO # 1.1 103/ul Critically high 0.3-0.8 [facility] Comment on above: Performed By: #### B MP #### [facility] [address] [place] [address] Dr. Shine Del Rosario Monocytes/100 WBC (Bld) 9.7 % Normal 1.7-12.0 [facility] Comment on above: Performed By: #### B MP #### [facility] [address] [place] [address] Dr. Shine Del Rosario NEUT # 9.0 103/ul Critically high 1.4-6.5 [facility] Comment on above: Performed By: #### B MP #### [facility] [address] [place] [address] Dr. Shine Del Rosario Neutrophils/100 WBC (Bld) 78.1 % Critically high 43.0-75.0 The [facility] Comment on above: Performed By: #### B MP #### [facility] [address] [address] [address] Shine Del Rosario Platelet mean volume (Bld) [Entitic vol] 9.1 fL Critically low 9.5-13.5 The [facility] Comment on above: Performed By: #### B MP #### [facility] [address] [address] [address] Shine Del Rosario PLT 341 103/ul Normal 150-450 The [facility] Comment on above: Performed By: #### B MP #### [facility] [address] [place], [place] [address] Dr. Shine Del Rosario RBC 2.73 106/ul Critically low 4.20-5.40 The [facility] Comment on above: Performed By: #### B MP #### [facility] [id number] Shine Del Rosario WBC 11.6 103/ul Critically high 4.0-11.0 [facility] Comment on above: Performed By: #### B MP #### [facility] [id number] Shine Del Rosario CT CHEST WO CONon 09-05-2021 CT CHEST WO CON EXAMINATION: CT CHES T WO CON HISTORY: SHORTNESS OF BREATH , trauma, pain COMPARISON: 11/18/2018 TECHNIQUE: Multi-planar CT images were created with IV contrast. Axial, Coronal, and Sagittal images. Dose reduction techniques were achieved by using automated exposure control and/or adjustment of mA and/or kV according to patient size and/or use of iterative reconstruction technique. FINDINGS: LUNGS: Mild diffuse peribronchial thickening. Minimal centrilobular emphysema. PLEURA: Tiny right apical pneumothorax measuring up to 5 mm. No pleural effusion VASCULATURE: No abnormality. SAHARA: No mass or adenopathy. MEDIASTINUM: No mass or adenopathy. CARDIAC: No enlargement or pericardial effusion. Heavy coronary atherosclerosis. Aortic valve calcifications. 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 Mild atherosclerosis. CHEST WALL: No mass or axillary adenopathy. BONES: Acute fractures right lateral sixth, seventh, and 10th ribs. Lateral and posterior segmental fractures right eighth and ninth ribs. 50% anterior wedge compression fracture of the L1 vertebral body, new from 2019 LIMITED ABDOMEN: No suspicious findings. Limited images of the upper abdomen. OTHER: Moderate right subcutaneous emphysema supraclavicular, right lateral and right posterior extending below the field of view. Call placed to the emergency room 12:37 PM IMPRESSION: Multiple right rib fractures with small 5 mm right pneumothorax and moderate right subcutaneous emphysema Borderline aneurysm ascending thoracic aorta measuring 4.0 cm Electronically authenticated by: PAWAN GEORGE Date: 2021-09-05 12:46 Normal The [facility] CT CSPINE WO CONon CT CSPINE WO CON EXAMINATION: CT CSPI NE WO CON HISTORY: MUSCLE WEAKNESS (GENERALIZED) COMPARISON: None. TECHNIQUE: CT Cervical spine without IV contrast. Coronal and sagittal reformations were performed. Dose reduction techniques were achieved by using automated exposure control and/or adjustment of mA and/or kV according to patient size and/or use of iterative reconstruction technique. FINDINGS: Osseous: The vertebral body heights are maintained. No fracture. Soft tissues: Subcutaneous emphysema within the neck. A tiny right apical pneumothorax is present. Atherosclerotic vascular calcification of the carotid bulb and proximal internal carotid arteries. Disc levels: C2-C3: No disc protrusion, spinal canal stenosis, or neural foraminal stenosis. Mild left facet arthrosis. C3-C4: Broad-based posterior disc bulge. Mild narrowing of the spinal canal. Neural foramina are patent. C4-C5: No disc protrusion, spinal canal stenosis, or neural foraminal stenosis. Moderate degenerative changes of the left facets. Fusion of the facet joints bilaterally. C5-C6: Small broad-based posterior disc bulge. Mild effacement of ventral CSF. Neural foramina are patent. C6-C7: Posterior central disc protrusion. Mild effacement of ventral CSF. Neural foramina are patent. C7-T1: No disc protrusion, spinal canal stenosis, or neural foraminal stenosis. IMPRESSION: 1. No cervical spine fracture. 2. Subcutaneous emphysema within the neck. 3. Tiny right apical pneumothorax. Critical results were called by Dr. Danielle Diehl MD to Dr. Limon At 09/05/2021 9:28 AM EDT. Electronically authenticated by: SLOANE DIEHL Date: 2021-09-05 09:38 Normal The [facility] Covid-19 PCR (CVDTB)on 08-13 SARS-CoV-2 (COVID-19) RNA LYLA+probe Ql (Unsp spec) Not detected Normal NOT DETECTED The [facility] Comment on above: Result Comment: When diagnostic testing is negative, the possibility of a false negative should be considered in the context of a patient's recent exposures and the presence of clinical signs and symptoms consistent with SARS-CoV-2. This test is not yet approved or cleared by the [place] FDA. When there are no FDA-approved or cleared tests available, and other criteria are met, FDA can make tests available under an emergency access mechanism called an Emergency Use Authorization (EUA). The EUA for this test is supported by the Surgical Assist of Health and Human Service's declaration that circumstances exist to justify the emergency use of in vitro diagnostics for the detection and/or diagnosis of the virus that causes COVID-19. This EUA will remain in effect for the duration of the COVID-19 declaration justifying emergency of IVDs, unless it is terminated or revoked by the FDA (after which the test may no longer be used). Performed By: #### B MP #### [facility] [address] [place] [address] Dr. Shine Del Rosario ER URINE PROFILEon 2 Bilirubin Ql (U) Negative Normal NEGATIVE The [facility] Comment on above: Performed By: #### P HVEN #### [facility] [address] [place] [address] Dr. Shine Del Rosario Clarity (U) CLEAR Normal CLEAR The [facility] Comment on above: Performed By: #### P HVEN #### [facility] [address] [place] [address] Dr. Shine Del Rosario Color (U) LT. YELLOW Normal YELLOW [facility] Comment on above: Performed By: #### P HVEN #### [facility] [address] [place] [address] Dr. Shine ARDON A micrscopic examina tion will be performed if indicated. Normal The [facility] Comment on above: Performed By: #### P HVEN #### [facility] [address] [place] [address] Dr. Shine Del Rosario Glucose Ql (U) Negative Normal NEGATIVE [facility] Comment on above: Performed By: #### P HVEN #### [facility] [address] [place] [address] Dr. Shine Del Rosario Hemoglobin Ql (U) Negative Normal NEGATIVE [facility] Comment on above: Performed By: #### P HVEN #### [facility] [address] [place] [address] Dr. Shine Del Rosario Ketones Ql (U) Negative Normal NEGATIVE [facility] Comment on above: Performed By: #### P HVEN #### [facility] [address] [place] [address] Dr. Shine Del Rosario LEUKOCYTES Negative Normal NEGATIVE [facility] Comment on above: Performed By: #### P HVEN #### [facility] [address] [place] [address] Dr. Shine Del Rosario Nitrite Ql (U) Negative Normal NEGATIVE [facility] Comment on above: Performed By: #### P HVEN #### [facility] [address] [place] [address] Dr. Shine Del Rosario pH (U) 6.0 [pH] Normal 5-9 [facility] Comment on above: Performed By: #### P HVEN #### [facility] [address] [place] [address] Dr. Shine Del Rosario SPEC GRAVITY 1.010 Normal 1.005-<=1. 025 [facility] Comment on above: Performed By: #### P HVEN #### [facility] [address] [place] [address] Dr. Shine Del Rosario UA PROTEIN Negative Normal NEGATIVE/ TRACE The [facility] Comment on above: Performed By: #### P HVEN #### [facility] [address] [place] [address] Dr. Shine Del Rosario UR MICRO IND NOT INDICATED Normal [facility] Comment on above: Performed By: #### P HVEN #### [facility] [address] [place] [address] Dr. Shine Del Rosario Urobilinogen Qn (U) 0.2 {Estela'U}/dL Normal 0.2 - 1. 0 [facility] Comment on above: Performed By: #### P HVEN #### [facility] [address] [place] [address] Dr. Shine Del Rosario ETHANOL (BLD ALC)on 09-06-19 ALC NOTE NOTE: 80 mg/dl is th e legal limit for a blood alcohol level Normal [facility] Comment on above: Performed By: #### L IVER #### [facility] [address] [place] [address] Dr. Shine Del Rosario Ethanol [Mass/Vol] mg/dL Normal [facility] Comment on above: Performed By: #### L IVER #### [facility] [address] [place] [address] Dr. Shine Del Rosario INFLUENZA A AND B AGon 09-05 INFLUANEGH SEE BELOW Normal The [facility] Comment on above: Result Comment: Nega tive for Flu A protein angiten. Infection due to Flu A cannot be ruled out. Flu A angiten in the sample may be below the detection limit of the test. Performed By: #### I NFLUAB #### [facility] [address] [place] [address] Dr. Shine Del Rosario INFLUBNEGH SEE BELOW Normal [facility] Comment on above: Result Comment: Nega tive for Flu B protein antigen. Infection due to Flu B cannot be ruled out. Flu B antigen in the sample may be below the detection limit of the test. Performed By: #### I NFLUAB #### [facility] [address] [place] [address] Dr. Shine Del Rosario INFLUENZA A AG Negative Normal NEGATIVE SEE COMMENT The [facility] Comment on above: Performed By: #### I NFLUAB #### [facility] [address] [place] [address] Dr. Shine Del Rosario INFLUENZA B AG Negative Normal NEGATIVE SEE COMMENT The [facility] Comment on above: Performed By: #### I NFLUAB #### [facility] [address] [place] [address] Dr. Shine Del Rosario INTERNAL CONTROLS Within Normal Limits Normal Wi thin Normal Limits The [facility] Comment on above: Performed By: #### I NFLUAB #### [facility] [address] [place] [address] Dr. Shine Del Rosario PH VENOUS BLOODon 09-05-2021 PCO2 VENOUS 37.8 mmHg Critically low 40.0-52.0 The [facility] Comment on above: Performed By: #### P HVEN #### [facility] [address] [place] [address] Dr. Shine Del Rosario pH VENOUS 7.416 Normal 7.330-7.43 0 [facility] Comment on above: Performed By: #### P HVEN #### [facility] [address] [address] [address] Shine Del Rosario PROF 14(COMP METB)on 022 Albumin [Mass/Vol] 3.2 g/dL Critically low 3.4-5.0 Th e [facility] Comment on above: Performed By: #### B MP #### [facility] [address] [place] [address] Dr. Shine Del Rosario Albumin/Globulin [Mass ratio] 0.8 {ratio} Normal [facility] Comment on above: Performed By: #### B MP #### [facility] [address] [place] [address] Dr. Shine Del Rosario ALP [Catalytic activity/Vol] 111 U/L Normal 46-116 [facility] Comment on above: Performed By: #### B MP #### [facility] [address] [place] [address] Dr. Shine Del Rosario ALT [Catalytic activity/Vol] 72 U/L Critically high 14-59 [facility] Comment on above: Performed By: #### B MP #### [facility] [address] [place] [address] Dr. Shine Del Rosario Anion gap [Moles/Vol] 16.0 mmol/L Normal [facility] Comment on above: Performed By: #### B MP #### [facility] [address] [place] [address] Dr. Shine Del Rosario AST [Catalytic activity/Vol] 54 U/L Critically high 15-37 [facility] Comment on above: Performed By: #### B MP #### [facility] [address] [place] [address] Dr. Shine Del Rosario Bilirubin [Mass/Vol] 1.4 mg/dL Critically high 0.2-1.0 [facility] Comment on above: Performed By: #### B MP #### [facility] [address] [place] [address] Dr. Shine Del Rosario Calcium [Mass/Vol] 8.5 mg/dL Normal 8.5-10.1 [facility] Comment on above: Performed By: #### B MP #### [facility] [address] [address] [address] Shine Del Rosario Chloride [Moles/Vol] 85 mmol/L Critically low 98-107 [facility] Comment on above: Performed By: #### B MP #### [facility] [address] [address] [address] Shine Del Rosario CO2 [Moles/Vol] 22.7 mmol/L Normal 21.0-32.0 [facility] Comment on above: Performed By: #### B MP #### [facility] [address] [address] [address] Shine Del Rosario Creatinine [Mass/Vol] 1.03 mg/dL Critically high 0.55-1.02 [facility] Comment on above: Performed By: #### B MP #### [facility] [address] [place] [address] Dr. Shine Del Rosario EGFR-AF BANGLADESHI >60 Normal >=60 [facility] Comment on above: Performed By: #### B MP #### [facility] [address] [place] [address] Dr. Shine Del Rosario EGFR-NON AF BANGLADESHI 54 mL/min/1.73m2 Critically low >=60 [facility] Comment on above: Performed By: #### B MP #### [facility] [address] [place] [address] Dr. Shine Del Rosario Globulin (S) [Mass/Vol] 3.8 g/dL Normal [facility] Comment on above: Performed By: #### B MP #### [facility] [address] [address] [address] Shine Del Rosario Glucose [Mass/Vol] 136 mg/dL Critically high 74-106 [facility] Comment on above: Performed By: #### B MP #### [facility] [address] [address] [address] Shine Del Rosario Potassium [Moles/Vol] 2.7 mmol/L Critically low 3.5-5.1 [facility] Comment on above: Performed By: #### B MP #### [facility] [address] [place] [address] Dr. Shine Del Rosario Protein [Mass/Vol] 7.0 g/dL Normal 6.1-8.2 [facility] Comment on above: Performed By: #### B MP #### [facility] [address] [place] [address] Dr. Shine Del Rosario Sodium [Moles/Vol] 120 mmol/L Critically low 136-145 Th e [facility] Comment on above: Performed By: #### B MP #### [facility] [address] [place] [address] Dr. Shine Del Rosario Urea nitrogen [Mass/Vol] 16.0 mg/dL Normal 7.0-18.0 [facility] Comment on above: Performed By: #### B MP #### [facility] [address] [place] [address] Dr. Shine Del Rosario Urea nitrogen/Creatinine [Mass ratio] 15.5 mg/mg Normal [facility] Comment on above: Performed By: #### B MP #### [facility] [address] [place] [address] Dr. Shine Del Rosario PROTIMEon 09-05-2021 INR Coag (PPP) [Relative time] 0.96 {INR} Normal [facility] Comment on above: Performed By: #### P TT, PT #### [facility] [address] [place] [address] Dr. Shine Del Rosario INR GUIDELINES SEE BELOW Normal [facility] Comment on above: Result Comment: JUDY RED INR: 2.0 - 3.0 CONDITIONS NOT LISTED BELOW 2.5 - 3.5 FOR PROSTHETIC HEART VALVE REPLACEMENT 2.5 - 3.5 RECURRENT THROMBOSIS Performed By: #### P TT, PT #### [facility] [address] [place] [address] Dr. Shine Del Rosario PT Coag (PPP) [Time] 10.4 s Normal 9.0-11.6 [facility] Comment on above: Performed By: #### P TT, PT #### [facility] [address] [place] [address] Dr. Shine Del Rosario PTTon 09-05-2021 aPTT Coag (Bld) [Time] 37.6 s Critically high 22.3-36.2 The [facility] Comment on above: Performed By: #### P TT, PT #### [facility] [address] [address] [address] Shine Del Rosario SODIUM RANDOM URINEon 2021 Sodium (U) [Moles/Vol] 20 mmol/L Critically low 30-90 [facility] Comment on above: Performed By: #### B MP #### [facility] [address] [address] [address] Shine Del Rosario TSHon 09-05-2021 TSH 1.734 uIU/mL Normal 0.470-4.68 0 [facility] Comment on above: Performed By: #### B MP #### [facility] [address] [place] [address] Dr. Shine Del Rosario TSH RANGE SEE BELOW Normal [facility] Comment on above: Result Comment: <0.3 4 UIU/ml HYPERTHYROID 0.34-5.60 UIU/ml EUTHYROID >5.60 UIU/ml HYPOTHYROID Performed By: #### B MP #### [facility] [address] [place] [address] Dr. Shine Del Rosario XR CHEST 1 Von 09-05-2021 XR CHEST 1 V EXAMINATION: XR CHES T 1 V HISTORY: MUSCLE WEAKNESS (GENERALIZED) COMPARISON: No relevant comparison available. TECHNIQUE: AP portable erect FINDINGS: LUNGS: No significant pulmonary parenchymal abnormalities. VASCULATURE: No increased pulmonary vasculature. PLEURA: No pneumothorax, effusion, or pleural thickening. CARDIAC: No cardiomegaly or cardiac silhouette abnormality. MEDIASTINUM: No visible mass or adenopathy. BONES: Contour deformity consistent with acute fractures right lateral sixth through ninth ribs OTHER: Right supraclavicular subcutaneous emphysema IMPRESSION: Right lateral sixth through ninth rib fractures with associated subcutaneous emphysema but no definite pneumothorax Electronically authenticated by: PAWAN GEORGE Date: 2021-09-05 09:25 Normal The [facility] CT chest wo conon 07-25-2018 CT chest wo con [facility] [place] [address] CT Scan Report Signed Patient: Catherine Adamson MR#: [id number] : 1960 Acct:[id number] Age/Sex: 58 / F ADM Date: 07/25/18 Loc: Room: Type: [facility] Attending Dr: Judy Baltazar MD Ordering Provider: Judy Baltazar MD Date of Service: 07/25/18 CT/CT chest wo con: R06.02, R05, R63.4 Copies to: Judy Baltazar MD CT chest wo con 07/25/2018 9:18 AM SIGN AND SYMPTOMS: Shortness of breath TECHNIQUE: Multidetector CT axial slices of the chest were obtained without IV contrast. Multiplanar reformats were performed and viewed on a separate workstation and reviewed to further define anatomy and possible pathology. CT was performed with one or more of the following dose reduction techniques: Automated exposure control, adjustment of the mA and/or kV according to patient size, or use of iterative reconstruction technique. COMPARISON: None.. FINDINGS: Lower neck: Thyroid gland within normal limits, no supraclavicle adenopathy. Vessels: Atherosclerotic changes are noted in the aortic arch and at the origins of the great vessels. Endoscopic changes are noted within the coronary arteries. Mediastinum and [place]: Within normal limits. Heart: Normal size. No pericardial effusion. Airways: Within normal limits Lungs: There is minimal linear scarring or atelectasis in the lung bases, greatest on the left. Pleura: Within normal limits. Chest Wall: Within normal limits. Upper Abdomen: Within normal limits. Bones: There is a remote posttraumatic deformity of the right clavicle. CT/CT chest wo con IMPRESSION: No acute cardiac pulmonary pathology. Minimal dependent atelectasis in the lung bases, left greater than right. Impression dictated by: Wild Cardoso M.D.07/25/2018 1:57 PM Dictation Location: [place] [address] Transcribed By: SOLOMON 07/25/18 1351 Dictated By: Wild Cardoso II, MD 07/25/18 1351 Signed By: 07/25/18 1353 [facility] US renal BIon 07-25-2018 US renal BI [facility] [place] [address] Ultrasound Report Signed Patient: Catherine dAamson MR#: [id number] : 1960 Acct:[id number] Age/Sex: 58 / F ADM Date: 07/25/18 Loc: Room: Type: [facility] Attending Dr: Judy Baltazar MD Ordering Provider: Judy Baltazar MD Date of Service: 07/25/18 US/US renal BI: Hyponatremia Copies to: Judy Baltazar MD US renal BI 07/25/2018 9:17 AM SIGNS AND SYMPTOMS: Hyponatremia COMPARISON: None. FINDINGS: Right kidney measures 11.0 x 4.3 x 4.8 cm. There is no hydronephrosis or mass. Left kidney measures 10.6 x 6.2 x 5.5 cm. There is no hydronephrosis or mass. The urinary bladder is morphologically normal. No free fluid is seen in the pelvis. The bladder has an estimated volume of 105 mL. US/US renal BI IMPRESSION: No evidence of hydronephrosis or mass. Unremarkable kidneys. Impression dictated by: Wild Cardoso M.D.07/25/2018 1:47 PM Dictation Location: [place] [address] Tech: Julia Foreman Transcribed By: SOLOMON 07/25/18 1347 Dictated By: Wild Cardoso II, MD 07/25/18 1346 Signed By: 07/25/18 1347 [facility] Discharge Summaryon 02-16-20 Discharge Summary MR#: [id number] [facility] Pt. Name: Catherine Adamson Admitted: 02/12/2017 Discharged: 02/14/2017 Date of : 1960 Physician: Wanda Wheeler M.D. 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 She stated the pain radiatedto her left jaw and caused numbness in her left arm and was also associatedwith anxiety. This prompted her to call 911, and take 4 baby aspirin. Shesaid her pain was relieved mildly with the 4 baby aspirin and was relievedwith 2 tablets of nitroglycerin which she was given in the emergencydepartment. She presented to the [facility] Emergency Department where EKG wasperformed, sinus rhythm without ST changes. Her hypertension, smokinghistory, and family history consisting of 3 first-degree relatives passingaway from myocardial infarction before the age of 60. She underwent leftheart cath, which found a 99% occlusion of the left circumflex artery 30%occlusion of the LAD and 50% occlusion of the RCA. PCI was performed anddrug-eluting stent was placed in the left circumflex artery, which had 0%occlusion after stent. She also underwent echocardiogram, which showedejection greater than 55%. Her troponin peaked at 0.28 prior to left heartcath and on day of discharge, it was down-trending at 0.17. She wasstarted on high dose atorvastatin loaded with Plavix and started onmetoprolol. She is being discharged with metoprolol 25, Plavix 75,atorvastatin 80, lisinopril 10, as well as baby aspirin. 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 She insists that she will no longer besmoking. At the time of discharge, all of her presenting symptoms haveresolved. She no longer had any chest pain, shortness of breath, and alsodenied any palpitations.PHYSICAL EXAMINATION: At time of discharge.VITAL SIGNS: Temperature 98.1, pulse 81, respirations 18, blood [id number], oxygen saturation 98% on room air.GENERAL: Alert and oriented middle aged female, appearing stated age, inno acute distress. Oriented to person, place, time, and situation withfamily present in room.HEENT: Normocephalic, atraumatic. Extraocular muscles intact. Pupils areequal, round, and reactive to light with accommodation. No decreasedhearing. Nose patent.NECK: No thyromegaly. No cervical lymphadenopathy.CARDIAC: Regular rate and rhythm without murmurs, clicks, or rubs.RESPIRATORY: Lungs are clear to auscultation in all lung gamez withoutwheezing, rhonchi, rales, or rubs.ABDOMINAL: Soft, nondistended, nontender. Bowel sounds present andnormoactive in all 4 quadrants.MUSCULOSKELETAL: The patient is able to move all 4 extremities withoutlateralizing deficit and strength is 5/5. Bandage over left radial accesssite, nontender without erythema or exudate.NEUROLOGIC: Cranial nerves II through XII grossly intact. Sensationglobally intact. No lateralizing deficit. Unable to move all 4extremities. Gait, normal.VASCULAR: Pulses +2 bilateral radial, bilateral dorsalis pedis pulse. Nocarotid bruits.PSYCHIATRIC: The patient's thought content normal. Judgement normal. Nosigns of anxiety or distress.PROCEDURES PERFORMED: Left heart cath results showing initially 99%occlusion of the left circumflex artery, 30% occlusion of the left anteriordescending artery, 50% occlusion of the right coronary artery with 0%blockage of the left circumflex artery after drug-eluting stent wasplaced.DISCHARGE MEDICATIONS:1. Aspirin 81 mg.2. Atorvastatin 80 mg.3. Clopidogrel 75 mg.4. Lisinopril 10 mg.5. Metoprolol succinate 25 mg.6. Nitroglycerin 0.4 mg as needed with instructions to call 911 if chest pain is not relieved after 3 tablets administered, one tablet every 5 minutes for chest pain.SIGNIFICANT LABS AT TIME OF DISCHARGE: Sodium 139, potassium 3.6, [id number], carbon dioxide 24, calcium 8.9, GFR greater than 60, creatinine 0.55,blood urea nitrogen 0.8. Hematologic; white blood cell count 6.1, redblood cell count 3.5, hemoglobin 11.0, hematocrit 33.4. Fasting lipidpanel; cholesterol 204, triglycerides 52, HDL cholesterol 59, LDLcholesterol 135, VLDL cholesterol 10.Precatheterization hemoglobin 11.4 and hematocrit 34.0.ASSESSMENT: A 56-year-old female with acute coronary syndrome secondary toNSTEMI, caused by 99% occlusion of the left circumflex artery that wasrelieved with percutaneous intervention and drug-eluting stent placement.Electronically Signed by:Wanda Wheeler M.D. 02/20/2017 03:50 P Wanda Wheeler M.D. I personally saw this patient on the day of the encounter, performed thekey portion(s) of the service and participated in the management andconfirm the resident's documentation. Please note there may be anadditional personal documentation from me. Date Dict: 02/14/2017/04:05 Dulce/Leighton Goetz Trans: 02/15/2017 03:46 A/[id number]: Addy Zhong D.O. [address] [facility] A [facility] [address] Normal [facility] BASIC METABOLIC PANELon 10-0 Calcium 8.9 mg/dL Normal 8.6-10.3 [facility] Comment on above: Order Comment: No: D o not add to previous draw Performed By: #### 5 0103 ####[facility] [place] [address], [facility] Chloride 107 mmol/L Normal 98-107 [facility] Comment on above: Order Comment: No: D o not add to previous draw Performed By: #### 5 0103 ####[facility] [place] [address], [facility] CO2 24 mmol/L Normal 21-31 [facility] Comment on above: Order Comment: No: D o not add to previous draw Performed By: #### 5 0103 ####[facility] [place] [address], [place] Creatinine 0.55 mg/dL Low 0.60-1.20 [facility] Comment on above: Order Comment: No: D o not add to previous draw Performed By: #### 5 0103 ####[facility] [place] [address], [place] eGFR (black) mL/min/{1.73_m2} Normal >60 [facility] Comment on above: Order Comment: No: D o not add to previous draw Performed By: #### 5 0103 ####[facility] [place] [address], [place] eGFR (non-black) mL/min/{1.73_m2} Normal >60 Th [facility] Comment on above: Order Comment: No: D o not add to previous draw Performed By: #### 5 0103 ####[facility] [place] [address], [facility] Glucose mass conc 85 mg/dL Normal 70-100 [facility] Comment on above: Order Comment: No: D o not add to previous draw Performed By: #### 5 0103 ####[facility] [place] [address], [facility] Potassium molar conc 3.6 mmol/L Normal 3.5-5.1 [facility] Comment on above: Order Comment: No: D o not add to previous draw Performed By: #### 5 3 ####[facility] [place] [address], [facility] Sodium 139 mmol/L Normal 136-145 [facility] Comment on above: Order Comment: No: D o not add to previous draw Performed By: #### 5 3 ####[facility] [place] [address], [facility] Urea nitrogen 8 mg/dL Normal 7-25 [facility] Comment on above: Order Comment: No: D o not add to previous draw Performed By: #### 5 3 ####[facility] [place] [address], [facility] CBC COMPLETE BLOOD COUNTon 1 - Erythrocyte distribution width Auto Ratio (RBC) 13.0 % Normal 11.5-16.9 [facility] Comment on above: Order Comment: No: D o not add to previous draw Performed By: #### 5 3 ####[facility] [place] [address], [facility] Erythrocytes (RBC) 3.51 mill/mm3 Normal 3.50-5.50 [facility] Comment on above: Order Comment: No: D o not add to previous draw Performed By: #### 5 0103 ####[facility] Hematocrit (HCT) 33.4 % Low 36.0-48.0 [facility] Comment on above: Order Comment: No: D o not add to previous draw Performed By: #### 5 0103 ####[facility] Hemoglobin mass conc (Bld) 11.0 g/dL Low 12.0-15.0 [facility] Comment on above: Order Comment: No: D o not add to previous draw Performed By: #### 5 0103 ####[facility] [place] [address] MCH 31.4 pg Normal 24.0-32.0 [facility] Comment on above: Order Comment: No: D o not add to previous draw Performed By: #### 5 0103 ####[facility] [facility].[address] MCHC mass conc (RBC) 33.0 g/dL Normal 32.0-36.0 [facility] Comment on above: Order Comment: No: D o not add to previous draw Performed By: #### 5 0103 ####[facility] [facility].[address] MCV 95.1 fL Normal 80.0-100.0 [facility] Comment on above: Order Comment: No: D o not add to previous draw Performed By: #### 5 0103 ####[facility] [facility] [place] [address], [facility] PLAT CNT 352 Thou/mm3 Normal 100-400 [facility] Comment on above: Order Comment: No: D o not add to previous draw Performed By: #### 5 0103 ####[facility] WBC (Leukocytes) 6.1 Thou/mm3 Normal 4.0-10.0 [facility] Comment on above: Order Comment: No: D o not add to previous draw Performed By: #### 5 0103 ####[facility] Cardiovascular Lab Reporton 02-14-2017 Cardiovascular Lab Report [facility] Patient Name: Catherine Adamson [facility] MR #: [id number] Physician: Juaquin Blum M.D.Medicine Service Date: 02/13/2017Division of Birthdate: 1960Cardiology Room #: 3AB [id number] CardiovascularServicesUnivers[facility] HospitalUvdhjmgYfdkfc[address] [place], [place] [address]Ihbwk Fax Cardiovascular Laboratory ReportCARDIAC CATHETERIZATION REPORTINDICATION:Catherine Adamson is a 56-year-old woman, who was admitted with recurrentepisodes of chest pain and mild elevation of cardiac enzymes. She wasreferred to the sleep lab technician as a non ST-segment elevation myocardialinfarction.PROCEDURE S:1. Bilateral selective coronary angiography.2. Successful balloon dilatation and drug-eluting stenting of 99% mid circumflex stenosis reduced to 0% by deployment of a PROMUS Premier 2.75 x 20 mm drug-eluting stent post dilated to 3.0 mm at high pressures.3. Administration of intracoronary nitroglycerin.METHOD:The procedure was explained to the patient with risks and benefits. Shesigned informed consent. She was brought to sleep lab technician in a fasting state.Ez's test was favorable on the left. Access in the left radial arterywas obtained using micropuncture technique. A 6-Bolivian x 11 cm sheath wasplaced. A verapamil was given through the sheath and heparin wasadministered intravenously. Bilateral selective coronary angiography wasthen performed using 6-Bolivian JL4 and JR4 diagnostic catheters. Catheterswere removed.Heparin was administered intravenously and therapeutic ACT confirmed duringthe procedure. A 6-Bolivian XB 3.0 guiding catheter was advanced and used toengage left main coronary ostium. A Prowater wire was advanced into thedistal circumflex. Balloon angioplasty in the mid circumflex was performedusing an Emerge 2.5 x 15 mm balloon inflated at 12 atmospheres.Angiography revealed suboptimal results. This was treated using a PROMUSPremier 2.75 x 20 mm drug-eluting stent deployed at 11 atmospheres andpost-dilated using NC Quantum Apache 3.0 x 15 mm noncompliant ballooninflated at 18 atmospheres. Final angiography after administration ofintracoronary nitroglycerin showed excellent result with reduction of thestenosis to 0%. MARTINE-3 flow in the circumflex and branches. No evidenceof dissection or perforation. The guiding catheter was removed. Theprocedure was concluded. The patient was loaded with 600 mg of Plavix atthe beginning of the coronary intervention. She was transferred back toher room. The access sheath in the radial artery was removed and acompression dressing applied for hemostasis.Total fluoro time 9.48 minutes.Total air kerma 1102 mGy.Total contrast volume 120 mL.HEMODYNAMICS:AO 141/75, mean 102.CORONARY ANGIOGRAPHY:This is a right dominant circulation.Left main: Arises from left coronary cusp. It bifurcates into leftanterior descending and circumflex vessels. Left main is free of disease.Left anterior descending: This is a large vessel. It has minimal luminalirregularities. The 1st diagonal branch has a 30% ostial to proximalstenosis.Circumflex vessel: This is non-dominant. It is large vessel and givesrise to multiple obtuse marginal branches. There is 99% stenosis in themid circumflex that was reduced to 0% by balloon angioplasty anddrug-eluting stenting as above. The rest of the circumflex and obtusemarginal branches are free of disease.Right coronary artery: This arises from the right aortic cusp. It is alarge and dominant vessel. It has a 50% mid segment stenosis, but noobstructive lesions.SUMMARY OF THE FINDINGS:1. Severe single-vessel coronary artery disease with 99% stenosis in the mid circumflex vessel in a patient with recurrent chest pain and mild elevation of cardiac enzymes.2. A 30% stenosis in the first diagonal branch.3. A 50% stenosis in the mid right coronary artery.4. Successful balloon dilatation and drug-eluting stenting of 99% mid circumflex stenosis with reduction of the stenosis to 0% by a drug-eluting stent.RECOMMENDATIONS:1. Aspirin and statin therapy for life.2. Plavix therapy for a minimum of 1 year after drug-eluting stenting and NSTEMI presentation.3. Follow up in Cardiology Clinic.Electronically Signed by:Juaquin Roberto M.D. 02/17/2017 09:31 P Juaquin Roberto M.D.Date Dict: 02/13/2017/12:28 P/Juaquin Roberto M.D.Date Trans: 02/14/2017 09:31 A/Servando_JN:[id number]: Addy Zhong D.O. [address] [place] [address] Normal [facility] MAGNESIUM BLOODon 02-14-2017 Magnesium 2.0 mg/dL Normal 1.9-2.7 [facility] Comment on above: Performed By: #### 5 0103 ####[facility] [place] [address], [facility] TROPONIN-Ion 02-14-2017 Troponin I.cardiac mass conc 0.17 ng/mL High 0.00-0.04 [facility] Comment on above: Result Comment: REFE RENCE RANGES: 0.00 - 0.04 ng/ml NORMAL 0.05 - 0.50 ng/ml INDETERMINATE > 0.50 ng/ml CONSISTENT WITH AN M.I. Performed By: #### 5 0103 ####[facility] [place] [address], [facility] APTTon 02-13-2017 aPTT 39.1 s High 25.0-35.0 [facility] Comment on above: Order Comment: No: D o not add to previous draw Result Comment: ALL RESULTS MUST BE INTERPRETED WITH RESPECT TO BLOOD DRAWING ARTIFACTOR DILUTION ERROR OF ANTICOAGULANT AT THE TIME OF SAMPLING.THE APTT SHOULD NOT BE USED TO MONITOR UNFRACTIONATED HEPARIN THERAPY, THIS LABORATORY NO LONGER HAS AN ESTABLISHED THERAPEUTIC RANGE BASEDON THE APTT. IT IS RECOMMENDED THAT THE [facility] - HEPARIN ASSAY (ANTI-XAACTIVITY) BE USED FOR THIS PURPOSE. Performed By: #### 5 6101, 21551 ####[facility] [facility].[address] BASIC METABOLIC PANELon 10-0 Calcium 8.9 mg/dL Normal 8.6-10.3 [facility] Comment on above: Order Comment: No: D o not add to previous draw Performed By: #### 3 5200, 89002, 38634, 30191 ####[facility] [facility].[address] Chloride 105 mmol/L Normal 98-107 [facility] Comment on above: Order Comment: No: D o not add to previous draw Performed By: #### 3 5200, 39260, 09199, 79474 ####[facility] [facility].[address] CO2 25 mmol/L Normal 21-31 [facility] Comment on above: Order Comment: No: D o not add to previous draw Performed By: #### 3 5200, 12285, 80621, 11963 ####[facility] [facility].[address] Creatinine 0.51 mg/dL Low 0.60-1.20 [facility] Comment on above: Order Comment: No: D o not add to previous draw Performed By: #### 3 5200, 88766, 77676, 98557 ####[facility] [facility].[address] eGFR (black) mL/min/{1.73_m2} Normal >60 [facility] Comment on above: Order Comment: No: D o not add to previous draw Performed By: #### 3 5200, 15111, 24459, 71562 ####[facility] [facility] [place] [address], [place] eGFR (non-black) mL/min/{1.73_m2} Normal >60 Th e [facility] Comment on above: Order Comment: No: D o not add to previous draw Performed By: #### 3 5200, 85372, 86060, 80439 ####[facility] [place] [address], [facility] Glucose mass conc 80 mg/dL Normal 70-100 [facility] Comment on above: Order Comment: No: D o not add to previous draw Performed By: #### 3 5200, 87026, 65444, 84989 ####[facility] [place] [address], [facility] Potassium molar conc 3.7 mmol/L Normal 3.5-5.1 [facility] Comment on above: Order Comment: No: D o not add to previous draw Performed By: #### 3 5200, 06120, 41208, 83547 ####[facility] [place] [address], [facility] Sodium 137 mmol/L Normal 136-145 [facility] Comment on above: Order Comment: No: D o not add to previous draw Performed By: #### 3 5200, 14946, 43441, 28834 ####[facility] [place] [address], [facility] Urea nitrogen 11 mg/dL Normal 7-25 [facility] Comment on above: Order Comment: No: D o not add to previous draw Performed By: #### 3 5200, 05043, 72241, 90827 ####[facility] [place] [address], [facility] CBC COMPLETE BLOOD COUNTon 1 - Erythrocyte distribution width Auto Ratio (RBC) 12.5 % Normal 11.5-16.9 [facility] Comment on above: Order Comment: No: D o not add to previous draw Performed By: #### 5 0608 ####[facility] Erythrocytes (RBC) 3.88 mill/mm3 Normal 3.50-5.50 [facility] Comment on above: Order Comment: No: D o not add to previous draw Performed By: #### 5 0608 ####[facility] Hematocrit (HCT) 36.5 % Normal 36.0-48.0 [facility] Comment on above: Order Comment: No: D o not add to previous draw Performed By: #### 5 0608 ####[facility] [facility].[address] Hemoglobin mass conc (Bld) 12.3 g/dL Normal 12.0-15.0 [facility] Comment on above: Order Comment: No: D o not add to previous draw Performed By: #### 5 0608 ####[facility] [facility].[address] MCH 31.7 pg Normal 24.0-32.0 [facility] Comment on above: Order Comment: No: D o not add to previous draw Performed By: #### 5 0608 ####[facility] [facility].[address] MCHC mass conc (RBC) 33.7 g/dL Normal 32.0-36.0 [facility] Comment on above: Order Comment: No: D o not add to previous draw Performed By: #### 5 0608 ####[facility] [facility].[address] MCV 94.1 fL Normal 80.0-100.0 [facility] Comment on above: Order Comment: No: D o not add to previous draw Performed By: #### 5 0608 ####[facility] [place] [address], [facility] PLAT CNT 361 Thou/mm3 Normal 100-400 [facility] Comment on above: Order Comment: No: D o not add to previous draw Performed By: #### 5 0608 ####[facility] WBC (Leukocytes) 5.6 Thou/mm3 Normal 4.0-10.0 [facility] Comment on above: Order Comment: No: D o not add to previous draw Performed By: #### 5 0608 ####[facility] CBC W/DIFFon 02-13-2017 Basophils Auto #/vol (Bld) 0.0 % Normal 0.0-2.0 [facility] Comment on above: Order Comment: No: D o not add to previous draw Performed By: #### 5 0103 ####[place] [address] [facility].[address] Eosinophils/100 leukocytes 0.0 % Normal 0.0-5.0 [facility] Comment on above: Order Comment: No: D o not add to previous draw Performed By: #### 5 0103 ####[facility] [facility].[address] Erythrocyte distribution width Auto Ratio (RBC) 12.7 % Normal 11.5-16.9 [facility] Comment on above: Order Comment: No: D o not add to previous draw Performed By: #### 5 0103 ####[facility] Erythrocytes (RBC) 3.61 mill/mm3 Normal 3.50-5.50 [facility] Comment on above: Order Comment: No: D o not add to previous draw Performed By: #### 5 0103 ####[facility] [facility].[address] Hematocrit (HCT) 34.0 % Low 36.0-48.0 [facility] Comment on above: Order Comment: No: D o not add to previous draw Performed By: #### 5 0103 ####[facility] Hemoglobin mass conc (Bld) 11.4 g/dL Low 12.0-15.0 [facility] Comment on above: Order Comment: No: D o not add to previous draw Performed By: #### 5 0103 ####[facility] Lymphocytes/100 leukocytes 58.0 % High 20.0-40.0 [facility] Comment on above: Order Comment: No: D o not add to previous draw Performed By: #### 5 0103 ####[address] MCH 31.7 pg Normal 24.0-32.0 [facility] Comment on above: Order Comment: No: D o not add to previous draw Performed By: #### 5 3 ####[facility] MCHC mass conc (RBC) 33.6 g/dL Normal 32.0-36.0 [facility] Comment on above: Order Comment: No: D o not add to previous draw Performed By: #### 5 0103 ####[facility] [place] [address] MCV 94.3 fL Normal 80.0-100.0 [facility] Comment on above: Order Comment: No: D o not add to previous draw Performed By: #### 5 0103 ####[facility] METHOD Manual blood smear e xamination performed Normal [facility] Comment on above: Order Comment: No: D o not add to previous draw Performed By: #### 5 3 ####[facility] [place] [address], [facility] MONOS 7.0 % Normal 2-8 [facility] Comment on above: Order Comment: No: D o not add to previous draw Performed By: #### 5 0103 ####[facility] [place] [address], [facility] OTHER 1 NORMAL RED CELL MORP HOLOGY SEEN Normal [facility] Comment on above: Order Comment: No: D o not add to previous draw Performed By: #### 5 0103 ####[facility] [place] [address], [facility] PLAT CNT 359 Thou/mm3 Normal 100-400 [facility] Comment on above: Order Comment: No: D o not add to previous draw Performed By: #### 5 0103 ####[facility] [facility].[address] SEGS 35.0 % Low 50-70 [facility] Comment on above: Order Comment: No: D o not add to previous draw Performed By: #### 5 0103 ####[facility] [facility].[address] WBC (Leukocytes) 6.2 Thou/mm3 Normal 4.0-10.0 [facility] Comment on above: Order Comment: No: D o not add to previous draw Performed By: #### 5 0103 ####[facility] LIPID PROFILEon 02-13-2017 Cholesterol 204 mg/dL High 120-200 [facility] Comment on above: Order Comment: No: D o not add to previous draw Result Comment: CHOL ESTEROL REFERENCE RANGE:20 YEARS AND OLDER CARDIOVASCULAR RISKLess than 200 mg/dl Low [id number] to 239 mg/dl Borderline [id number] mg/dl and greater High Risk Performed By: #### 5 0103 ####[facility] Cholesterol to HDL Ratio 3.5 {ratio} Normal .0-4.5 [facility] Comment on above: Order Comment: No: D o not add to previous draw Performed By: #### 5 0103 ####[facility] [facility].[address] HDL Cholesterol 59 mg/dL Normal 23-92 [facility] Comment on above: Order Comment: No: D o not add to previous draw Result Comment: Slig ht variation in normal range could be due to gender and/or age.HDL CHOLESTEROL REFERENCE RANGE:20 years and older Cardiovascular Risk> or =60 mg/dL [id number] TO 59 mg/dL Low Risk<40 mg/dL High Risk Performed By: #### 5 0103 ####[facility] LDL Cholesterol 135 mg/dL High 0-130 [facility] Comment on above: Order Comment: No: D o not add to previous draw Result Comment: LDL IS A CALCULATIONLDL IS ONLY VALID IF THE TRIG IS LESS THAN 400. Performed By: #### 5 0103 ####[facility] NON-HDL CHOLESTEROL 145 mg/dL Normal [facility] Comment on above: Order Comment: No: D o not add to previous draw Performed By: #### 5 0103 ####[facility] [facility].[address] Triglyceride 52 mg/dL Normal 40-149 [facility] Comment on above: Order Comment: No: D o not add to previous draw Result Comment: TRIG LYCERIDE REFERENCE RANGE:20 YEARS AND OLDER CARDIOVASCULAR RISKLESS THAN 150 mg/dl LOW [id number] TO 199 mg/dl BORDERLINE [id number] mg/dl AND GREATER HIGH RISK Performed By: #### 5 0103 ####[facility] [place] [address], [facility] VLDL CHOL 10 mg/dL Normal 0-40 [facility] Comment on above: Order Comment: No: D o not add to previous draw Performed By: #### 5 0103 ####[facility] [facility].[address] MAGNESIUM BLOODon 02-13-2017 Magnesium 1.8 mg/dL Low 1.9-2.7 [facility] Comment on above: Order Comment: No: D o not add to previous draw Performed By: #### 3 5200, 52004, 42954, 77947 ####[facility] [facility].[address] PHOSPHORUS BLOODon 7 Phosphate 3.0 mg/dL Normal 2.5-5.0 [facility] Comment on above: Order Comment: No: D o not add to previous draw Performed By: #### 3 5200, 67839, 79974, 73018 ####[facility] PROTHROMBIN TIMEon 7 INR Coag RelTime (PPP) 1.00 {INR} Normal 0.91-1.16 [facility] Comment on above: Order Comment: No: D o not add to previous draw Result Comment: ACCC P RECOMMENDED INR FOR WARFARIN THERAPY CONDITION INRPROPHYLAXIS OF VENOUS THROMBOSIS 2-3(HIGH-RISK SURGERY)TREATMENT OF VENOUS THROMBOSIS 2-3TREATMENT OF PULMONARY EMBOLISM 2-3PREVENTION OF SYSTEMIC EMBOLISM: 2-3 ACUTE MYOCARDIAL INFARCTION TISSUE HEART VALVES VALVULAR HEART DISEASE ATRIAL FIBRILLATION RECURRENT SYSTEMIC EMBOLISMMECHANICAL HEART VALVE 2.5-3.5 FROM: ORAL ANTICOAGULANTS. MECHANISM OF ACTION, CLINICALEFFECTIVENESS, AND OPTIMAL THERAPEUTIC RANGE. [id number]. Performed By: #### 5 6101, [id number] ####[place] [address] [facility].[address] Prothrombin time (PT) Coag time (PPP) 13.2 s Normal 12.3-14.8 [facility] Comment on above: Order Comment: No: D o not add to previous draw Result Comment: ALL RESULTS MUST BE INTERPRETED WITH RESPECT TO BLOOD DRAWING ARTIFACTOR DILUTION ERROR OF ANTICOAGULANT AT THE TIME OF SAMPLING. Performed By: #### 5 6101, [id number] ####[place] [address] [facility].[address] TROPONIN-Ion 02-13-2017 Troponin I.cardiac mass conc 0.28 ng/mL High 0.00-0.04 [facility] Comment on above: Result Comment: REFE RENCE RANGES: 0.00 - 0.04 ng/ml NORMAL 0.05 - 0.50 ng/ml INDETERMINATE > 0.50 ng/ml CONSISTENT WITH AN M.I. Performed By: #### 3 5200, 80047, 48755, 59741 ####[address] PORTABLE CHEST 1 VIEWon PORTABLE CHEST 1 VIEW [facility] [address] [place] [address] Patient Name: CATHERINE ADAMSON : 1960Sex: FAge: Race: WhiteMRN: [id number]. Location: [id number] Status: IVisit #: [id number] Date: 02/12/2017 8:30:00 PMCompleted Date: 02/12/2017 08:51 PMRequesting Provider: AMBER POPE Attending Provider: WANDA WHEELER Report Copy To: Signs & Symptoms: Chest PainHistory: Patient history not availableComments: R/O EffusionExam: PORTABLE CHEST 1 VIEWAccession #: [id number] PORTABLE CHEST 1 VIEW 02/12/2017 8:51 PM EDT SIGNS AND SYMPTOMS: Chest Pain TECHNOLOGIST COMMENTS: pt states chest pains hx of hypertesion QUESTION FOR THE RADIOLOGIST: R/O Effusion PROTOCOL: AP(PA) view was obtained. COMPARISON: None FINDINGS: Upper mediastinum unremarkable. Hilar regions symmetric. Heart normal size. Right lung clear. Left lung clear. Bony thorax is unremarkable. IMPRESSION: No acute cardiopulmonary abnormality. No effusion Electronically signed by:Margarita Correia. Transcribed by: [email or web address], User Resident: Electronically Signed by: MARGARITA CROREIA @ 02/13/2017 08:42 AM Normal [facility] Comment on above: Order Comment: R/O E ffusion TROPONIN-Ion 02-12-2017 Troponin I.cardiac mass conc 0.20 ng/mL High 0.00-0.04 [facility] Comment on above: Order Comment: No: D o not add to previous draw Result Comment: REFE RENCE RANGES: 0.00 - 0.04 ng/ml NORMAL 0.05 - 0.50 ng/ml INDETERMINATE > 0.50 ng/ml CONSISTENT WITH AN M.I. Performed By: #### 3 5200 ####[facility] [place] [address], [facility] Vital Signs Date Time Vital Sign Value Performing Clinician Facility 06-05-2024 10:06-0500 Body height 158.75 cm [facility] 06-05-2024 10:06-0500 Body mass index (BMI) [Ratio] 24.3 kg/m2 [facility] 06-05-2024 10:06-0500 Body weight 61.23 kg [facility] 06-05-2024 10:06-0500 Diastolic blood pressure 71 mm[Hg] [facility] 06-05-2024 10:06-0500 Heart rate 90 /min [facility] 06-05-2024 10:06-0500 SaO2% (BldA) [Mass fraction] 97 % [facility] 06-05-2024 10:06-0500 Systolic blood pressure 117 mm[Hg] [facility] 04-21-2024 10:47-0500 Body height 158.75 cm [facility] 04-21-2024 10:47-0500 Body mass index (BMI) [Ratio] 24.7 kg/m2 [facility] 04-21-2024 10:47-0500 Body weight 62.25 kg [facility] 04-21-2024 10:47-0500 Diastolic blood pressure 71 mm[Hg] [facility] 04-21-2024 10:47-0500 Heart rate 86 /min [facility] 04-21-2024 10:47-0500 Systolic blood pressure 127 mm[Hg] [facility] 04-07-2024 10:41-0500 Body height 158.75 cm [facility] 04-07-2024 10:41-0500 Body mass index (BMI) [Ratio] 25 kg/m2 [facility] 04-07-2024 10:41-0500 Body weight 63.04 kg [facility] 04-07-2024 10:41-0500 Diastolic blood pressure 82 mm[Hg] [facility] 04-07-2024 10:41-0500 Heart rate 83 /min [facility] 04-07-2024 10:41-0500 Systolic blood pressure 173 mm[Hg] [facility] 01-29-2024 11:59-0400 Body height 158.75 cm [facility] 01-29-2024 11:59-0400 Body mass index (BMI) [Ratio] 24.8 kg/m2 [facility] 01-29-2024 11:59-0400 Body weight 62.59 kg [facility] 01-29-2024 11:59-0400 Diastolic blood pressure 84 mm[Hg] [facility] 01-29-2024 11:59-0400 Heart rate 78 /min [facility] 01-29-2024 11:59-0400 Systolic blood pressure 137 mm[Hg] [facility] 10-12-2023 15:00-0400 Hourly Rounding Regi Robenstine [facility] 10-12-2023 15:00-0400 Promise to Return Regi Robenstine [facility] 10-12-2023 14:00-0400 Hourly Rounding Regi Robenstine [facility] 10-12-2023 14:00-0400 Promise to Return Regi Robenstine [facility] 10-12-2023 13:00-0400 Hourly Rounding Regi Robenstine [facility] 10-12-2023 13:00-0400 Promise to Return Regi Robenstine [facility] 10-12-2023 11:28-0400 Heart rate 93 /min Regi Robenstine [facility] 10-12-2023 11:28-0400 SaO2% (BldA) [Mass fraction] 88 % Regi Robenstine [facility] 10-12-2023 11:27-0400 Diastolic blood pressure 60 mm[Hg] Regi Robenstine [facility] 10-12-2023 11:27-0400 Mean blood pressure 73 mm[Hg] Regi Robenstine [facility] 10-12-2023 11:27-0400 Systolic blood pressure 99 mm[Hg] Regi Robenstine [facility] 10-12-2023 11:26-0400 Body temperature 98.06 [degF] Regi Robenst[facility] 10-12-2023 08:51-0400 Diastolic blood pressure 67 mm[Hg] Regi Robenstine [facility] 10-12-2023 08:51-0400 Heart rate 92 /min Regi Robenstine [facility] 10-12-2023 08:51-0400 Systolic blood pressure 116 mm[Hg] Regi Robenstine [facility] 10-12-2023 08:19-0400 Heart rate 86 /min Regi Robenstine [facility] 10-12-2023 08:19-0400 Respiratory rate 18 /min Regi Robenstine [facility] 10-12-2023 08:00-0400 Heart rate 85 /min Regi Robenstine [facility] 10-12-2023 08:00-0400 SaO2% (BldA) [Mass fraction] 98 % Regi Robenstine [facility] 10-12-2023 07:56-0400 SaO2% (BldA) [Mass fraction] 97 % Regi Robenstine [facility] 10-12-2023 07:55-0400 Diastolic blood pressure 67 mm[Hg] Regi Robenst[facility] 10-12-2023 07:55-0400 Mean blood pressure 83 mm[Hg] Regi Robenst[facility] 10-12-2023 07:55-0400 Systolic blood pressure 116 mm[Hg] Regi Robenstine [facility] 10-12-2023 07:55-0400 Body temperature 97.52 [degF] Regi Rob[facility]st[facility] 10-12-2023 04:37-0400 Respiratory rate 18 /min Regi Robenstine [facility] 10-12-2023 03:10-0400 Body temperature 98.06 [degF] [facility] 10-12-2023 03:10-0400 Mean blood pressure 93 mm[Hg] Regi [facility]st[facility] 10-11-2023 08:49-0400 Heart rate 82 /min Regi Robenst[facility] 10-11-2023 05:08-0400 Heart rate 87 /min Regi Robenstine [facility] 10-11-2023 05:00-0400 Blood Pressure Location Regi Robenstine [facility] 10-11-2023 05:00-0400 Body temperature 97.7 [degF] Regi [facility]st[facility] 10-11-2023 00:00-0400 Body temperature 97.52 [degF] Regi Robenst[facility] 10-10-2023 08:33-0400 Heart rate 98 /min Regi Robenstine [facility] 10-10-2023 00:12-0400 Blood Pressure Location Regi Robenstine [facility] 10-10-2023 00:12-0400 Mean blood pressure 78 mm[Hg] Regi Robenst[facility] 10-09-2023 19:31-0400 Blood Pressure Location Regi Robenstine [facility] 10-09-2023 18:25-0400 Mean blood pressure 108 mm[Hg] Regi Robenst[facility] 10-09-2023 18:25-0400 Respiratory rate 17 /min Regi Robenstine [facility] 10-09-2023 18:15-0400 Mean blood pressure 101 mm[Hg] Regi Robenstine [facility] 10-09-2023 18:15-0400 Respiratory rate 13 /min Regi Robenstine [facility] 10-09-2023 18:10-0400 Respiratory rate 15 /min Regi Robenstine [facility] 10-09-2023 04:00-0400 Body temperature 97.52 [degF] Regi Robenstine [facility] 10-08-2023 18:41-0400 Heart rate 124 /min Regi Robenstine [facility] 10-08-2023 18:27-0400 Heart rate 122 /min Regi Robenstine [facility] 09-10-2023 09:34-0400 Body height 158.75 cm [facility] 09-10-2023 09:34-0400 Body mass index (BMI) [Ratio] 26.6 kg/m2 [facility] 09-10-2023 09:34-0400 Body weight 67.3 kg [facility] 09-10-2023 09:34-0400 Diastolic blood pressure 72 mm[Hg] [facility] 09-10-2023 09:34-0400 Heart rate 76 /min [facility] 09-10-2023 09:34-0400 Systolic blood pressure 122 mm[Hg] [facility] 10-16-2022 09:00-0400 Body height 158.75 cm Ximena Astudillo Other [employer] Other 10-16-2022 09:00-0400 Body mass index (BMI) [Ratio] 27.72 kg/m2 Ximena Astudillo Other [employer] Other 10-16-2022 09:00-0400 Body weight 69.85 kg Ximena Astudillo Other [employer] Other 10-16-2022 09:00-0400 Diastolic blood pressure 70 mm[Hg] Ximena Astudillo Other [employer] Other 10-16-2022 09:00-0400 Systolic blood pressure 132 mm[Hg] Ximena Astudillo Other [facility] [employer] Other 11-30-2021 08:09-0400 Diastolic blood pressure 92 mm[Hg] Lemus SALAM [facility] 11-30-2021 08:09-0400 Heart rate 86 /min Lemus SALAM [facility] 11-30-2021 08:09-0400 Systolic blood pressure 170 mm[Hg] Lemus SALAM [facility] Encounters Encounter Date Encounter Type Care Provider Facility Start: 06-05-2024 End: 06-05-2024 ambulatory [facility] Work Phone: Start: 06-05-2024 End: 06-05-2024 Patient encounter procedure [facility] Work Phone: Start: 04-21-2024 End: 04-21-2024 Patient encounter procedure [facility] Work Phone: Start: 04-14-2024 Non-patient / Non-visit [facility] Work Phone: Start: 04-07-2024 End: 04-07-2024 Patient encounter procedure [facility] Work Phone: Start: 03-12-2024 Non-patient / Non-visit [facility] Work Phone: Start: 01-29-2024 End: 01-29-2024 ambulatory [facility] Work Phone: Start: 01-29-2024 End: 01-29-2024 Patient encounter procedure [facility] Work Phone: Start: 11-28-2023 End: 11-28-2023 ambulatory [facility] Not Available Start: 11-09-2023 Patient encounter procedure Andrea Alonso APRN.[employer] Work Phone: [facility] Start: 11-09-2023 Progress Note Andrea MCLEAN RN.[employer] Work Phone: [facility] Start: 11-07-2023 End: 11-07-2023 ambulatory [facility] Not Available Start: 11-05-2023 Patient encounter procedure Andrea Alonso APRN.[employer] Work Phone: [facility] Start: 11-05-2023 Progress Note Andrea MCLEAN RN.[employer] Work Phone: [facility] Start: 10-29-2023 Patient encounter procedure Andrea Alonso APRN.[employer] Work Phone: [facility] Start: 10-29-2023 Progress Note Andrea MCLEAN RN.[employer] Work Phone: [facility] Start: 10-25-2023 Patient encounter procedure Andrea Alonso RETINAL ANGIOGRAPHER.[employer] Work Phone: [facility] Start: 10-25-2023 Progress Note Andrea MCLEAN RN.[employer] Work Phone: [facility] Start: 10-23-2023 Patient encounter procedure Andrea Alonso APRN.[employer] Work Phone: [facility] Start: 10-23-2023 Progress Note Andrea MCLEAN RN.[employer] Work Phone: [facility] Start: 10-23-2023 End: 10-23-2023 ambulatory CHANA LEMONS Not Available Start: 10-18-2023 Patient encounter procedure 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 Art Facility:[facility] Start: 10-08-2023 End: 10-12-2023 Evaluation and management of inpatient Regi Cordova Facility:[facility] Start: 10-08-2023 Emergency department patient visit Rigo Anderson Facility:[facility] Start: 10-08-2023 End: 10-12-2023 Evaluation and management of inpatient Regi Trang. [facility] Start: 09-10-2023 End: 09-10-2023 ambulatory [facility] Work Phone: Start: 09-10-2023 End: 09-10-2023 Patient encounter procedure [facility] Work Phone: Start: 08-08-2023 Non-patient / Non-visit [facility] Physician [facility] [employer] Work Phone: Start: 01-22-2023 End: 01-22-2023 ambulatory Ximena Astudillo Other [employer] Other Start: 01-22-2023 Telephone encounter Ximena Astudillo [facility] Start: 10-18-2022 End: 10-18-2022 ambulatory Ximena Astudillo Other [place] [employer] Other Start: 10-18-2022 Telephone encounter Ximena Baudilio [facility] Start: 10-17-2022 End: 10-17-2022 ambulatory Ximena Astudillo Other [place] [employer] Other Start: 10-17-2022 Telephone encounter Ximena Astudillo [facility] Start: 10-16-2022 End: 10-16-2022 ambulatory Ximena Astudillo Other [place] [employer] Other Start: 10-16-2022 Office outpatient visit 25 minutes Ximena Astudillo [facility] Start: 08-19-2022 End: 08-19-[address] XIMENA ASTUDILLO Facility:[facility] Start: 05-10-2022 End: 05-10-[address] XIMENA ASTUDILLO Facility:[facility] Start: 01-19-2022 End: 01-19-[address] XIMENA ASTUDILLO Facility:[facility] Start: 11-30-2021 End: 11-30-2021 Patient encounter procedure Mariah HERNANDEZ [facility] Start: 11-04-2021 End: 11-04-2021 Patient encounter procedure Mariah JIMENEZAM [facility] Start: 10-18-2021 End: 10-19-[address] XIMENA ASTUDILLO Facility:[facility] Start: 09-27-2021 End: 09-28-[address] XIMENA ASTUDILLO Facility:[facility] Start: 09-23-2021 End: 09-23-[address] XIMENA ASTUDILLO Facility: Start: 09-21-2021 Patient encounter procedure Andrea Alonso APRN.[employer] Work Phone: [facility] Start: 09-21-2021 Progress Note Andrea MCLEAN RN.[employer] Work Phone: [facility] Start: 09-16-2021 Patient encounter procedure Andrea Alonso APRN.[employer] TE[employer] Work Phone: [facility] Start: 09-16-2021 Progress Note Andrea MCLEAN RN.[employer] Work Phone: [facility] Start: 09-14-2021 Patient encounter procedure Andrea Alonso APRN.[employer] Work Phone: [facility] Start: 09-14-2021 Progress Note Andrea MCLEAN RN.[employer] Work Phone: [facility] Start: 09-12-2021 Patient encounter procedure Itri Kisha Amilcar Work Phone: [facility] Start: 09-12-2021 Progress Note Itri A Amilcar Work Phone: [facility] Start: 09-05-2021 End: 09-11-2021 Evaluation and management of inpatient DR LENY MCCULLOUGH . Facility: Start: 07-25-2018 End: 07-25-2018 Patient encounter procedure Ximena Astudillo Facility:[facility] Start: 02-12-2017 End: 02-14-2017 Evaluation and management of inpatient WANDA WHEELER Facility:[facility] Procedures Date Procedure Procedure Detail Performing Clinician Start: 10-09-2023 Open reduction of fr acture with internal fixation Regi Cordova Start: 03-06-2018 Screening mammography Katya Astudillo Other Start: 02-13-2017 DILATION OF 1 COR AR T WITH DRUG-ELUT INTRA, PERC APPROACH JUAQUIN ROBERTO Start: 02-13-2017 FLUOROSCOPY OF MULTI PLE CORONARY ARTERIES USING OTH CONTRAST JUAQUIN ROBERTO Arthroscopy and biop sy of knee Lemus TONYAM Arthrotomy of knee Mariah JIMENEZ AM Ligation of fallopian tube M liz HERNANDEZ Plan of Treatment Date Care Activity Detail Author Start: 01-13-2024 Influenza vaccination Influenza Vaccine (Season Ended) [facility] Start: 2023 Advance Directive Discussion Advance Directive Discussion [facility] Start: 2023 Pneumococcal Vaccine: 65+ (1 of 1 - PCV) Pneumococcal Vaccine: 65+ (1 of 1 - PCV) [facility] Start: 2023 Screening for osteoporosis Bone Density Screening [facility] Start: 05-14-2023 Behavioral Health Screening Behavioral Health Screening [facility] Start: 01-12-2023 Covid-19 Vaccine ( season) Covid-19 Vaccine ( season) [facility] Start: 01-12-2022 Influenza vaccination [facility]UENZA ([facility]ed[facility] Start: 08-09-2021 DIABETES SCREEN DIABETES SCREEN [facility] Start: 08-09-2021 Diabetes Screening Diabetes Screening [facility] Start: 2018 RSV Vaccine (1 - 1-dose 60+ series) RSV Vaccine (1 - 1-dose 60+ series) [facility] Start: 2008 SHINGRIX VACCINE (1 of 2) SHINGRIX VACCINE (1 of 2) [facility] Start: 2003 COLOGUARD (FIT-DNA) COLOGUARD (FIT-DNA) [facility] Start: 2003 Colonoscopy COLONOSCOPY [facility] Start: 2003 COLORECTAL CANCER SCREENING COLORECTAL CANCER SCREENING [facility] Start: [address] COLONOGRAPHY [facility] Start: 2003 FECAL OCCULT BLOOD FECAL OCCULT BLOOD [facility] Start: 2003 Lipid panel Lipid Screening [facility] Start: 2003 LIPID SCREEN LIPID SCREEN [facility] Start: 2003 Screening for malignant neoplasm of colon [facility] Start: 2003 SIGMOIDOSCOPY SIGMOIDOSCOPY [facility] Start: 1998 Mammography MAMMOGRAM [facility] Start: 1998 Screening for malignant neoplasm of breast Mammogram Screening [facility] Start: 1988 HPV TESTING HPV TESTING [facility] Start: 1979 PAP TESTING PAP TESTING [facility] Start: 1977 Urine microalbumin profile [facility] Start: 1976 HEPATITIS C SCREENING HEPATITIS C SCREENING [facility] Start: 1976 Hepatitis C screening Hepatitis C Screening [facility] Start: 1976 HIV SCREENING HIV SCREENING [facility] Start: 1976 HIV screening HIV Screening [facility] Start: 1970 Adult depression screening assessment DEPRESSION SCREENING [facility] Start: 1963 COVID-19 VACCINE (#1) COVID-19 VACCINE (#1) [facility] Start: 1963 COVID-19 VACCINE (1) COVID-19 VACCINE (1) [facility] Comprehensive metabo lic 2000 panel - Serum or Plasma [facility] Microalbumin [Mass/volume] in Urine [facility] XR Chest 2 Views [facility] Immunizations Immunization Date Immunization Notes Care Provider Fa cility 01-29-2024 Pneumococcal Conjuga te Vaccine, 20 valent [facility] Payers Date Payer Category Payer Medicaid [facility] MEDICAID MYC ARE [facility] MEDICAID [id number] 2023-Present [phone] [address] [place] [address] Medicaid [id number] 2023 Medicare [facility] MEDICARE [facility] DUAL COMPLETE HMO POS SNP [id number] 2023-Present [phone] [address] [place] [address] Medicare [id number] 2023 Private Health Insurance [id number] 2018 Self-pay 2018 Medicaid [facility] MEDICAID [facility] [employer] MEDICAID [id number] 2018-Present [phone] [address] [place] [id number] Medicaid [id number] 1959 Medicaid [id number] 1959 Unknown [id number] 1958 Unknown [id number] 2.16.840.1.936159.3.579.2. 593 1958 Unknown [id number] 2.16.840.1.305713.3.579.2. 593 1958 Unknown [id number] 2.16.840.1.547549.3.579.2. 593 1958 Unknown [id number] 2.16.840.1.966323.3.579.2. 593 1958 Unknown [id number] 2.840.1.738314.3.579.2. 593 1958 Unknown [id number] 2.16.840.1.528770.3.579.2. 593 1958 Unknown [id number] 2.16.840.1.377549.3.579.2. 593 1958 Unknown [id number] 2.16.840.1.182808.3.579.2. 727 1958 Unknown [id number] 2.840.1.578290.3.579.2. 727 1958 Unknown [id number] 2.16.840.1.383501.3.579.2. 727 1958 Unknown [id number] 2.16.840.1.001202.3.579.2. 727 1958 Unknown [id number] 2.16.840.1.731630.3.579.2. 727 1958 Unknown [id number] 2.16.840.1.662183.3.579.2. 727 1958 Unknown [id number] 2.16.840.1.604173.3.579.2. 727 1958 Unknown [id number] 2.16.840.1.522499.3.579.2. 72 1958 Unknown [id number] 2.16.840.1.899389.3.579.2. 1958 Unknown [id number] 2.16.840.1.042629.3.579.2. 72 1958 Unknown [id number] 2.16.840.1.596642.3.579.2. 125 1958 Unknown [id number] 2.16.840.1.318798.3.579.2. 1258 1958 Unknown [id number] 2.16.840.1.897542.3.579.2. 1258 1958 Unknown [id number] 2.16.840.1.321066.3.579.2. 1258 1958 Unknown [id number] 2.16.840.1.417342.3.579.2. 1258 1958 Unknown [id number] 2.16.840.1.202968.3.579.2. 1258 1958 Unknown [id number] 2.16.840.1.562384.3.579.2. 1258 1958 Unknown [id number] 2.16.840.1.595061.3.579.2. 125 1958 Unknown [id number] Unknown [id number] Social History Date Type Detail Facility Start: 08[facility]09-2018 [facility] Start: 08-09-2018 Tobacco use and exposure Smokeless tobacco non-user [facility] Start: 1960 Sex Assigned At Not on file C [facility] Start: 11-03-2021 End: 11-30-2021 Tobacco smoking status Light tobacco smoker (finding) [facility] Start: 09-09-2018 End: 04-20-2020 Sex Assigned At Female [facility] Start: 10-16-2022 End: 06-03-2024 Tobacco smoking status NHIS Smoker (finding) [facility] Start: 1960 Sex Assigned At Female F [facility] Start: 09-09-2018 End: 04-20-2020 History of Social function [facility] National Score (1-100), lower number is lower risk Not on file [facility] Start: 06-05-2024 Sex Female (finding) [facility] Medical Equipment Procedure Code Equipment Code Equipment Origin al Text Equipment Identifier Dates WRIST FRACTURE C RPP Lemons DO, Chana T 10/09/23 Unknown Wrist R FDA Start: 10-09-2023 WRIST FRACTURE C RPP Lemons DO, Chana T 10/09/23 Unknown Wrist R FDA Start: 10-09-2023 HIP FRACTURE KEYUR F Lemons DO, Chana T 10/09/23 Unknown Leg R FDA Start: 10-09-2023 HIP FRACTURE KEYUR F Lemons DO, Chana T 10/09/23 Unknown Leg R FDA Start: 10-09-2023 HIP FRACTURE KEYUR F Lemons DO, Chana T 10/09/23 Unknown Leg R FDA Start: 10-09-2023 Functional Status Date Assessment Result Facility 10-08-2023 Functional Status No [facility] 10-08-2023 Functional Status [facility] 11-30-2021 Functional Status N/A [facility] Clinical Notes 03-04-2018 to 04-07-2024 Note Date & Type Note Facility 04-07-2024 Evaluation note Diagnosis Onset Date Resolution COPD (chronic obstructive pulmonary disease) acute March 10:29am Essential (primary) hypertension March 04, 2018 acute April 07, 2024 10:29am Hip fracture, right acute April 07, 2024 10:29am Smoker acute April 07, 2024 10:29am History of falling acute Decemb er 2023 10:39am Smoker acute Terry 2023 10:39am Visit for suture removal acute April 21, 2024 10:39am COPD (chronic obstructive pulmonary disease) acute June 05, 2024 10:05am [facility] Work Phone: [phone]) 214-573306-28-2024 History of Present illness Narrative* Andrea Alonso APRN.CNS - 11/09/2023 12:00 AM EDT [facility] NOTE NAME: CATHERINE ADAMSON [facility] NO.: [id number] DATE OF SERVICE: 11/09/2023 ATTENDING PHYSICIAN: VERENA Wallis [facility] Discharge Visit. DATE OF ADMISSION: October 12, 2023. DATE OF DISCHARGE: October. REASON FOR VISIT: The patient is a resident of [facility]. This is a discharge visit for fracture radius and ulna and fracture of the right femur, subsequent encounter with other medical concerns. The patient was admitted to [facility] from [facility] after fall, resulting in fracture of the right radius and ulna, and fracture of the right femur. The patient's stay at [facility] did have its events. The patient did have episodes of shortness of breath with cough. The patient did have x-ray. He was given short-term of Lasix 1 point; next point the patient's chest x-ray was negative for acute changes. The patient states will be going home by herself. The patient has a good strong family support and does have family who can assist on her needs. The patient states has no concerns of going home at this time. MEDICATIONS: 1. Klor-Con 10 mEq 1 tab twice day for hypokalemia. 2. Aspirin 81 mg daily for heart health. 3. Nifedipine Extended Release 30 mg 1 tab daily for hypertension. 4. Metoprolol ER 24-hour 25 mg 1 tab daily for hypertension. 5. Plavix 75 mg 1 tab daily for coronary artery disease. 6. Sodium chloride 1 g daily for hyponatremia. 7. Ascorbic acid 500 mg 2 times a day for supplement. 8. Symbicort 80-4.5 mcg per actuation 2 puffs 2 times a day for COPD. 9. Thiamin 100 mg 1 tab daily for supplement. 10. Apremilast 30 mg 1 tab daily for psoriasis. 11. Ferrous sulfate 325 mg 1 tab 2 times a day for anemia. 12. Folic acid 1 mg daily for supplement. 13. The patient also has p.r.n. medications - albuterol inhaler, Robaxin, senna, bisacodyl, acetaminophen, Milk of Magnesia, Fleet Enema. LABS: Labs reviewed October 17, 2023. Hematology abnormals - RBC 2.76, hemoglobin 9.3, hematocrit 27.4, platelets 545,000, monocytes 15.4, all other labs within normal range. Chemistry. Collection date October 29, 2023, abnormals - BUN 6, creatinine 0.4, all other labs within normal range. SUBJECTIVE DATA: Upon entering room, found the patient calm, alert, in wheelchair. The patient doesnot appear to be in distress or discomfort. The patient states was seen earlier this past week and was full weightbearing on the right lower extremity, is to wear her wrist brace and only take off for hygiene purposes. The patient states has no complaints at this time. No pain. No cough. No shortness of breath. No fever, chills, or nausea. States appetite is good. Bowels have been moving. Has been drinking fluids. Denies urinary symptoms. OBJECTIVE DATA: Vital signs: Temp 98.0, blood pressure 115/67, pulse 89, respirations 17, pulse ox 95% on room air. Weight 146.6 pounds. Respiratory: Respirations are easy and unlabored with the patient at rest. Lung sounds are clear and diminished. Heart: Rate and rhythm regular. Abdomen: Soft, nontender with palpation. Bowel sounds present x4. Extremities: Nonedematous. Musculoskeletal: The patient moves right lower extremity and right upper extremity without difficulty. Splint is noted to beintact to the right upper extremity wrist. The patient has full sensorium. Cap refill is brisk to the right upper extremity. Pedal pulse is palpable in right lower extremity. Psych: The patient is calm, alert, and pleasant in conversation. The patient is cooperative with examination. The patient isalert, oriented x3. IMPRESSION AND PLAN: 1. Fracture of the right ulna and right radius and right femur subsequent encounter with routine healing. The patient will continue with acetaminophen for pain, Robaxin for muscle spasms. 2. Iron-deficiency anemia. On ferrous sulfate, folic acid. 3. Coronary artery disease. On aspirin, nifedipine, Plavix, metoprolol. 4. Hyponatremia. On sodium chloride. 5. Chronic obstructive pulmonary disease. On Symbicort, albuterol inhaler. 6. History of alcohol abuse. On thiamine, folic acid. The patient is stable at the time of discharge. The patient returns home with home health services, PT, OT to continue services. The patient does have wheeled-walker home and needs no DMEs. The patient will return home with current medications, current labs, current treatments. The patient will follow with primary care physician in 7 to 10 days. Continue follow with [facility]opedic [facility] as scheduled. The patient is authorized to be discharged home. Time spent doing discharge greater than 31 minutes. DICTATED BY: VERENA Wallis/AQT JOB# [id number] [facility] NoteHNO ID: [id number] Author: ANDREA ALONSO APRN.VERENA Service: ? Author Type: Nurse Specialist Type: Progress Notes Filed: 11/12/2023 07:28 Note Text: [facility] NOTE NAME: CATHERINE ADAMSON [facility] NO.: [id number] DATE OF SERVICE: 11/09/2023 ATTENDING PHYSICIAN: VERENA Wallis [facility] Discharge Visit. DATE OF ADMISSION: October 12, 2023. DATE OF DISCHARGE: October. REASON FOR VISIT: The patient is a resident of [facility]. This is a discharge visit for fracture radius and ulna and fracture of the right femur, subsequent encounter with other medical concerns. The patient was admitted to [facility] from [facility] after fall, resulting in fracture of the right radius and ulna, and fracture of the right femur. The patient's stay at [facility] did have its events. The patient did have episodes of shortness of breath with cough. The patient did have x-ray. He was given short-term of Lasix 1 point; next point the patient's chest x-ray was negative for acute changes. The patient states will be going home by herself. The patient has a good strong family support and does have family who can assist on her needs. The patient states has no concerns of going home at this time. MEDICATIONS: 1. Klor-Con 10 mEq 1 tab twice day for hypokalemia. 2. Aspirin 81 mg daily for heart health. 3. Nifedipine Extended Release 30 mg 1 tab daily for hypertension. 4. Metoprolol ER 24-hour 25 mg 1 tab daily for hypertension. 5. Plavix 75 mg 1 tab daily for coronary artery disease. 6. Sodium chloride 1 g daily for hyponatremia. 7. Ascorbic acid 500 mg 2 times a day for supplement. 8. Symbicort 80-4.5 mcg per actuation 2 puffs 2 times a day for COPD. 9. Thiamin 100 mg 1 tab daily for supplement. 10. Apremilast 30 mg 1 tab daily for psoriasis. 11. Ferrous sulfate 325 mg 1 tab 2 times a day for anemia. 12. Folic acid 1 mg daily for supplement. 13. The patient also has p.r.n. medications - albuterol inhaler, Robaxin, senna, bisacodyl, acetaminophen, Milk of Magnesia, Fleet Enema. LABS: Labs reviewed October 17, 2023. Hematology abnormals - RBC 2.76, hemoglobin 9.3, hematocrit 27.4, platelets 545,000, monocytes 15.4, all other labs within normal range. Chemistry. Collection date October 29, 2023, abnormals - BUN 6, creatinine 0.4, all other labs within normal range. SUBJECTIVE DATA: Upon entering room, found the patient calm, alert, in wheelchair. The patient does not appear to be in distress or discomfort. The patient states was seen earlier this past week and was full weightbearing on the right lower extremity, is to wear her wrist brace and only take off for hygiene purposes. The patient states has no complaints at this time. No pain. No cough. No shortness of breath. No fever, chills, or nausea. States appetite is good. Bowels have been moving. Has been drinking fluids. Denies urinary symptoms. OBJECTIVE DATA: Vital signs: Temp 98.0, blood pressure 115/67, pulse 89, respirations 17, pulse ox 95% on room air. Weight 146.6 pounds. Respiratory: Respirations are easy and unlabored with the patient at rest. Lung sounds are clear and diminished. Heart: Rate and rhythm regular. Abdomen: Soft, nontender with palpation. Bowel sounds present x4. Extremities: Nonedematous. Musculoskeletal: The patient moves right lower extremity and right upper extremity without difficulty. Splint is noted to be intact to the right upper extremity wrist. The patient has full sensorium. Cap refill is brisk to the right upper extremity. Pedal pulse is palpable in right lower extremity. Psych: The patient is calm, alert, and pleasant in conversation. The patient is cooperative with examination. The patient is alert, oriented x3. IMPRESSION AND PLAN: 1. Fracture of the right ulna and right radius and right femur subsequent encounter with routine healing. The patient will continue with acetaminophen for pain, Robaxin for muscle spasms. 2. Iron-deficiency anemia. On ferrous sulfate, folic acid. 3. Coronary artery disease. On aspirin, nifedipine, Plavix, metoprolol. 4. Hyponatremia. On sodium chloride. 5. Chronic obstructive pulmonary disease. On Symbicort, albuterol inhaler. 6. History of alcohol abuse. On thiamine, folic acid. The patient is stable at the time of discharge. The patient returns home with home health services, PT, OT to continue services. The patient does have wheeled-walker home and needs no DMEs. The patient will return home with current medications, current labs, current treatments. The patient will follow with primary care physician in 7 to 10 days. Continue follow with [facility] as scheduled. The patient is authorized to be discharged home. Time spent doing discharge greater than 31 minutes. DICTATED BY: VERENA Wallis/LUIS JOB# [id number] [facility] Elect (more content not included)...[facility]06-24-2024 History of Present illness Narrative* Andrea Alonso APRN.VERENA - 11/05/2023 12:00 AM EDT [facility] NOTE NAME: NANCY ADAMSONE [facility] NO.: [id number] DATE OF SERVICE: 11/05/2023 ATTENDING PHYSICIAN: VERENA Wallis [facility] Chart Note REASON FOR VISIT: The patient is a resident of [facility]. This is a skilled visit for fracture of the radius and ulna, right side and fracture of the right femur, subsequent encounter withroutine healing and other medical concerns. Upon entering the room, found patient calm, alert, sitting in a recliner. Patient does not appear to be in distress or discomfort, is noted to have supplemental oxygen on. Patient states has been having worsening edema to bilateral lower extremities with cough productive of clear expectorant and shortness of breath. The patient states no fever, chills, or chest pain. The patient states does have occasional right arm pain. Pain is being controlled withcurrent medication regimen. No right hip pain has been identified. States appetite is good and bowels have been moving, has been drinking fluids. Denies urinary symptoms. MEDICATIONS: Have been reviewed. EXAMINATION: Temp 97.4, blood pressure 142/89, pulse 87, respirations 18, pulse ox 98%, weight 154.8 pounds. Respiratory: Respirations are easy and unlabored with patient at rest. Lung sounds are diminished with rales noted in the left lower lobe. Heart: Rate and rhythm regular. Abdomen: Soft and nontender with palpation. Bowel sounds present x4. Extremities: Mildly edematous bilaterally. Musculoskeletal: Right upper extremity, the patient moves all digits without difficulty. Full sensorium stated distally. Right cap refill is brisk. Right lower extremity, the patient moves right lower extremity well. Full sensorium stated distally. Right pedal pulses palpable. IMPRESSION AND PLAN: 1. Edema with cough. The patient will have a repeat chest x-ray, lab work to be performed on November 06, 2023, incentive spirometer, albuterol inhaler. 2. Fracture of the radius and ulna, subsequent encounter and fracture of the right femur, subsequent encounter, the patient is following with [facility], compression stockings bilateral lower extremities. On oxycodone, Robaxin, acetaminophen. The patient is following with [facility] and will revisit with [facility] on Sunday. 3. Iron deficiency anemia, on ferrous sulfate. 4. Coronary artery disease without angina. On Plavix, metoprolol, nifedipine, aspirin. 5. Hyponatremia, sodium chloride daily. DICTATED BY: VERENA Wallis/AQT JOB# [id number] [facility] documented in this [facility]24 NoteHNO ID: [id number] Author: ANDREA ALONSO APRN.VERENA Service: ? Author Type: Nurse Specialist Type: Progress Notes Filed: 11/07/2023 07:02 Note Text: [facility] NOTE NAME: CATHERINE ADAMSON [facility] NO.: [id number] DATE OF SERVICE: 11/05/2023 ATTENDING PHYSICIAN: VERENA Wallis [facility] Chart Note REASON FOR VISIT: The patient is a resident of [facility]. This is a skilled visit for fracture of the radius and ulna, right side and fracture of the right femur, subsequent encounter with routine healing and other medical concerns. Upon entering the room, found patient calm, alert, sitting in a recliner. Patient does not appear to be in distress or discomfort, is noted to have supplemental oxygen on. Patient states has been having worsening edema to bilateral lower extremities with cough productive of clear expectorant and shortness of breath. The patient states no fever, chills, or chest pain. The patient states does have occasional right arm pain. Pain is being controlled with current medication regimen. No right hip pain has been identified. States appetite is good and bowels have been moving, has been drinking fluids. Denies urinary symptoms. MEDICATIONS: Have been reviewed. EXAMINATION: Temp 97.4, blood pressure 142/89, pulse 87, respirations 18, pulse ox 98%, weight 154.8 pounds. Respiratory: Respirations are easy and unlabored with patient at rest. Lung sounds are diminished with rales noted in the left lower lobe. Heart: Rate and rhythm regular. Abdomen: Soft and nontender with palpation. Bowel sounds present x4. Extremities: Mildly edematous bilaterally. Musculoskeletal: Right upper extremity, the patient moves all digits without difficulty. Full sensorium stated distally. Right cap refill is brisk. Right lower extremity, the patient moves right lower extremity well. Full sensorium stated distally. Right pedal pulses palpable. IMPRESSION AND PLAN: 1. Edema with cough. The patient will have a repeat chest x-ray, lab work to be performed on November 06, 2023, incentive spirometer, albuterol inhaler. 2. Fracture of the radius and ulna, subsequent encounter and fracture of the right femur, subsequent encounter, the patient is following with [facility], compression stockings bilateral lower extremities. On oxycodone, Robaxin, acetaminophen. The patient is following with [facility] and will revisit with [facility] on Sunday. 3. Iron deficiency anemia, on ferrous sulfate. 4. Coronary artery disease without angina. On Plavix, metoprolol, nifedipine, aspirin. 5. Hyponatremia, sodium chloride daily. DICTATED BY: VERENA Wallis/SURINDERT JOB# [id number] [facility]06-17-2024 History of Present illness Narrative* Andrea Alonso, ROSETTA.VERENA - 10/29/2023 12:00 AM EDT [facility] NOTE NAME: CATHERINE ADAMSON [facility] NO.: [id number] DATE OF SERVICE: 10/29/2023 ATTENDING PHYSICIAN: VERENA Wallis [facility] Chart Note REASON FOR VISIT: The patient is a resident of [facility]. This is a skilled visit for fracture of the right radius and ulna and fracture of the right femur, subsequent encounter with routine healing. Upon entering the room, found the patient calm, alert, lying in semi-Saenz's position. The patient does not appear to be in distress or discomfort at this time. It has been recognized by [employer] Manager that insurances will be cutting the patient, the patient states she is not ready to go home and would like to stay until after her visit with Dr. Lemons. States that she is nonweightbearing in right upper extremity and 50% weightbearing in right lower extremity. Patient states the cough has eased. Did discuss the patient's x-ray with the patient. States has no cough or shortness ofbreath. The patient states no fever, chills, or nausea. States appetite is good, and bowels have been moving. Has been drinking fluids. Denies urinary symptoms. MEDICATIONS: Have been reviewed. EXAMINATION: Temp 97.7, blood pressure 128/78, pulse 86, respirations 18, pulse ox 97% on room air,and weight 154.6 pounds. Respiratory: Respirations are easy and unlabored with patient at rest. Lung sounds clear and diminished in the lower lobes bilaterally. Fine rales noted in the right lower lobe. Heart: Rate and rhythm regular. Abdomen: Soft and nontender with palpation. Bowel sounds presentx4. Extremities: Nonedematous. Musculoskeletal: Right upper extremity splint is intact. The patientmoves all fingers, full sensorium is stated. Cap refill is brisk. Right lower extremity, the patient has minimal range of motion. Full sensorium stated distally. Pedal pulse palpable. Right lateral hip and thigh incision areas have healed well without signs of infection. Steri-Strips noted to be intact. IMPRESSION AND PLAN: 1. Fracture of radius and ulnar, subsequent encounter. Continue with splint intact. The patient will continue to follow with Dr. Lemons' services. Continue acetaminophen for lesser pain, oxycodone for more severe pain. Cool compress will benefit. Continue to monitor neurovascular compromise. Continue with Robaxin. 2. Fracture of the right femur, subsequent encounter. On Eliquis for deep vein thrombosis prophylaxis, end date November 12, 2023. Continue with oxycodone for more severe pain, acetaminophen for lesser pain and Robaxin as needed for muscle relaxer. 3. Iron deficiency anemia, continue ferrous sulfate. 4. Coronary artery disease, on furosemide for small pleural effusion, right side. Continue aspirin,Plavix, nifedipine, and metoprolol. 5. Hyponatremia, on sodium chloride. DICTATED BY: VERENA Wallis/SURINDERT JOB# [id number] [facility]06-[facility]-2024 NoteHNO ID: [id number] Author: ANDREA ALONSO APRN.[employer] Service: ? Author Type: Nurse Specialist Type: Progress Notes Filed: 11/02/2023 07:03 Note Text: [facility] NOTE NAME: CATHERINE ADAMSON [facility] NO.: [id number] DATE OF SERVICE: 10/29/2023 ATTENDING PHYSICIAN: VERENA Wallis [facility] Chart Note REASON FOR VISIT: The patient is a resident of [facility]. This is a skilled visit for fracture of the right radius and ulna and fracture of the right femur, subsequent encounter with routine healing. Upon entering the room, found the patient calm, alert, lying in semi-Saenz's position. The patient does not appear to be in distress or discomfort at this time. It has been recognized by [employer] Manager that insurances will be cutting the patient, the patient states she is not ready to go home and would like to stay until after her visit with Dr. Lemons. States that she is nonweightbearing in right upper extremity and 50% weightbearing in right lower extremity. Patient states the cough has eased. Did discuss the patient's x-ray with the patient. States has no cough or shortness of breath. The patient states no fever, chills, or nausea. States appetite is good, and bowels have been moving. Has been drinking fluids. Denies urinary symptoms. MEDICATIONS: Have been reviewed. EXAMINATION: Temp 97.7, blood pressure 128/78, pulse 86, respirations 18, pulse ox 97% on room air, and weight 154.6 pounds. Respiratory: Respirations are easy and unlabored with patient at rest. Lung sounds clear and diminished in the lower lobes bilaterally. Fine rales noted in the right lower lobe. Heart: Rate and rhythm regular. Abdomen: Soft and nontender with palpation. Bowel sounds present x4. Extremities: Nonedematous. Musculoskeletal: Right upper extremity splint is intact. The patient moves all fingers, full sensorium is stated. Cap refill is brisk. Right lower extremity, the patient has minimal range of motion. Full sensorium stated distally. Pedal pulse palpable. Right lateral hip and thigh incision areas have healed well without signs of infection. Steri-Strips noted to be intact. IMPRESSION AND PLAN: 1. Fracture of radius and ulnar, subsequent encounter. Continue with splint intact. The patient will continue to follow with Dr. Lemons' services. Continue acetaminophen for lesser pain, oxycodone for more severe pain. Cool compress will benefit. Continue to monitor neurovascular compromise. Continue with Robaxin. 2. Fracture of the right femur, subsequent encounter. On Eliquis for deep vein thrombosis prophylaxis, end date November 12, 2023. Continue with oxycodone for more severe pain, acetaminophen for lesser pain and Robaxin as needed for muscle relaxer. 3. Iron deficiency anemia, continue ferrous sulfate. 4. Coronary artery disease, on furosemide for small pleural effusion, right side. Continue aspirin, Plavix, nifedipine, and metoprolol. 5. Hyponatremia, on sodium chloride. DICTATED BY: VERENA Wallis/AQT JOB# [id number] [facility]06-13-2024 History of Present illness Narrative* Andrea Alonso APRN.VERENA - 10/25/2023 12:00 AM EDT [facility] NOTE NAME: CATHERINE ADAMSON [facility] NO.: [id number] DATE OF SERVICE: 10/25/2023 ATTENDING PHYSICIAN: VERENA Wallis [facility] Chart Note REASON FOR VISIT: The patient is a resident of [facility]. This is a skilled visit for fracture of the radius and ulna and fracture of the right femur, subsequent encounter with routine healing. Upon entering the room, found the patient sitting up in bed. The patient is taking morning meal. The patient is notably short of breath and does have supplemental oxygen on and patient is talking in broken sentences. The patient states does have shortness of breath. States has developed a cough with productive of a yellow expectorant. The patient states was just up and usually becomes short of breath with lying down. The patient states no chest pain. Patient states does have pain to the right wrist. The patient states no fever, chills, or nausea. States appetite is good and bowels have been moving. Has been drinking fluids. Denies urinary symptoms. States no paresthesia at this time. MEDICATIONS: Have been reviewed. EXAMINATION: Temp 96.7, blood pressure 129/70, pulse 97, respirations 16, pulse ox in this visit was between 89% and 92% per nursing staff, weight 154.6 pounds. Respiratory: Respirations are slightlytachypneic and labored. Lung sounds diminished with rales noted in the bilateral lower lobes. Heart: Rate and rhythm regular. Abdomen: Soft, nontender with palpation. Bowel sounds present x4. Extremities: Nonedematous. Musculoskeletal: Right upper extremity splint is intact. The patient moves all fingers, full sensorium stated. Cap refill is brisk to right lower extremity. The patient moves rightlower extremity at the hip. Full sensorium is stated distally. Right pedal pulses palpable. IMPRESSION AND PLAN: 1. Cough with shortness of breath. The patient will have chest x-ray. The patient is receiving inhaler treatments at this time. Patient will have her use supplemental oxygen as needed to keep saturations greater or equal to 90%. 2. Fracture of the radius and ulna. Continue splint intact. Continue to monitor neurologic status. Medicate for pain as ordered. The patient is following with [facility] and recently followed up with [facility]. 3. Fracture of the right femur, subsequent encounter. Again, patient will follow with [facility]opedic [facility]. Continue with [facility]. Continue medications for pain as ordered. Continue to monitor for neurovascular compromise. 4. Iron deficiency anemia. No bleeding episodes identified, on ferrous sulfate. 5. Coronary artery disease. No coronary concerns this visit, on aspirin, Plavix, and metoprolol. 6. Hyponatremia, on sodium chloride tabs. Face to face performed for front wheeled walker with right arm rest. Patient has mobility limitation that impairs the ability to complete one or more MRADL's, can safely use the walker and mobility deficit can be resoled with use of this walker. DICTATED BY: VERENA Wallis/LUIS JOB# [id number] [facility] NoteHNO ID: [id number] Author: ANDREA ALONSO APRN.[employer] Service: ? Author Type: Nurse Specialist Type: Progress Notes Filed: 10/29/2023 07:07 Note Text: [facility] NOTE NAME: CATHERINE ADAMSON [facility] NO.: [id number] DATE OF SERVICE: 10/25/2023 ATTENDING PHYSICIAN: VERENA Wallis [facility] Chart Note REASON FOR VISIT: The patient is a resident of [facility]. This is a skilled visit for fracture of the radius and ulna and fracture of the right femur, subsequent encounter with routine healing. Upon entering the room, found the patient sitting up in bed. The patient is taking morning meal. The patient is notably short of breath and does have supplemental oxygen on and patient is talking in broken sentences. The patient states does have shortness of breath. States has developed a cough with productive of a yellow expectorant. The patient states was just up and usually becomes short of breath with lying down. The patient states no chest pain. Patient states does have pain to the right wrist. The patient states no fever, chills, or nausea. States appetite is good and bowels have been moving. Has been drinking fluids. Denies urinary symptoms. States no paresthesia at this time. MEDICATIONS: Have been reviewed. EXAMINATION: Temp 96.7, blood pressure 129/70, pulse 97, respirations 16, pulse ox in this visit was between 89% and 92% per nursing staff, weight 154.6 pounds. Respiratory: Respirations are slightly tachypneic and labored. Lung sounds diminished with rales noted in the bilateral lower lobes. Heart: Rate and rhythm regular. Abdomen: Soft, nontender with palpation. Bowel sounds present x4. Extremities: Nonedematous. Musculoskeletal: Right upper extremity splint is intact. The patient moves all fingers, full sensorium stated. Cap refill is brisk to right lower extremity. The patient moves right lower extremity at the hip. Full sensorium is stated distally. Right pedal pulses palpable. IMPRESSION AND PLAN: 1. Cough with shortness of breath. The patient will have chest x-ray. The patient is receiving inhaler treatments at this time. Patient will have her use supplemental oxygen as needed to keep saturations greater or equal to 90%. 2. Fracture of the radius and ulna. Continue splint intact. Continue to monitor neurologic status. Medicate for pain as ordered. The patient is following with [facility] and recently followed up with [facility]. 3. Fracture of the right femur, subsequent encounter. Again, patient will follow with [facility]opedic [facility]. Continue with [facility]. Continue medications for pain as ordered. Continue to monitor for neurovascular compromise. 4. Iron deficiency anemia. No bleeding episodes identified, on ferrous sulfate. 5. Coronary artery disease. No coronary concerns this visit, on aspirin, Plavix, and metoprolol. 6. Hyponatremia, on sodium chloride tabs. Face to face performed for front wheeled walker with right arm rest. Patient has mobility limitation that impairs the ability to complete one or more MRADL's, can safely use the walker and mobility deficit can be resoled with use of this walker. DICTATED BY: VEREAN Wallis/AQT JOB# [id number] [facility]06-11-[facility] History of Present illness Narrative* Andrea Alonso APRN.VERENA - 10/23/2023 12:00 AM EDT [facility] NOTE NAME: CATHERINE ADAMSON [facility] NO.: [id number] DATE OF SERVICE: 10/23/2023 ATTENDING PHYSICIAN: VERENA Wallis [facility] Chart Note REASON FOR VISIT: The patient is a resident of [facility]. This is a skilled visit for fracture of the right radius and ulnar and right femur, subsequent encounter with routine healing. Upon entering the room, found the patient calm, alert, sitting up in bed, taking morning meal. Patient does not appear to be in distress or discomfort. Patient states yesterday he had a bad day with pain. Stated pain to the right wrist. The patient states she feels as though she put too much weight when she was using the armrest on her walker. States she is going to see Dr. Lemons for a planned visittoday. States full sensorium to the right upper extremity. States has been up with therapy and working well. States has walked 55 steps and has no pain to the right lower extremity at this time. The patient states no other complaints of cough, shortness of breath. No fever, chills, or nausea. States appetite is good and bowels have been moving. Has been drinking fluids. Denies urinary symptoms. MEDICATIONS: Have been reviewed. EXAMINATION: Temp 97.6, blood pressure 128/60, pulse 99, respirations 19, pulse ox 97% on room air,weight 154.6 pounds. Respiratory: Respirations are easy and unlabored with patient at rest. Lung sounds are clear and diminished. Heart: Rate and rhythm regular. Abdomen: Soft and nontender with palpation. Bowel sounds present x4. Extremities: Nonedematous. Musculoskeletal: Right upper extremity splint is intact. The patient moves all fingers, full sensorium is stated. Cap refill is brisk, there is swelling, no bruising noted to the fingers. Right hip dressings x3, dry and intact. There is mildbruising noted to the proximal tib-fib area. The patient moves right lower extremity without difficulty. Full sensorium is stated. Right pedal pulse is palpable. IMPRESSION AND PLAN: 1. Fracture of the right radius and ulnar and fracture to the right femur, subsequent encounter with routine healing. Patient will continue with acetaminophen for lesser pain, oxycodone for more severe pain, methocarbamol, and is on Lovenox injections, end date, November 12, 2023. The patient will continue following with [facility]opedic [facility] and has seen Dr. Lemons today. Continue with [facility]. 2. Iron deficiency anemia, on ferrous sulfate. 3. Urinary tract infection. No urinary symptoms identified. 4. Coronary artery disease. No coronary concerns identified, on aspirin, nifedipine, metoprolol, and Plavix. 5. Hyponatremia, on sodium chloride tab. DICTATED BY: VERENA Wallis/LUIS JOB# [id number] [facility]24 NoteHNO ID: [id number] Author: ANDREA ALONSO APRN.VERENA Service: ? Author Type: Nurse Specialist Type: Progress Notes Filed: 10/26/2023 07:07 Note Text: [facility] NOTE NAME: CATHERINE ADAMSON [facility] NO.: [id number] DATE OF SERVICE: 10/23/2023 ATTENDING PHYSICIAN: Andrea Alonso, VERENA [facility] Chart Note REASON FOR VISIT: The patient is a resident of [facility]. This is a skilled visit for fracture of the right radius and ulnar and right femur, subsequent encounter with routine healing. Upon entering the room, found the patient calm, alert, sitting up in bed, taking morning meal. Patient does not appear to be in distress or discomfort. Patient states yesterday he had a bad day with pain. Stated pain to the right wrist. The patient states she feels as though she put too much weight when she was using the armrest on her walker. States she is going to see Dr. Lemons for a planned visit today. States full sensorium to the right upper extremity. States has been up with therapy and working well. States has walked 55 steps and has no pain to the right lower extremity at this time. The patient states no other complaints of cough, shortness of breath. No fever, chills, or nausea. States appetite is good and bowels have been moving. Has been drinking fluids. Denies urinary symptoms. MEDICATIONS: Have been reviewed. EXAMINATION: Temp 97.6, blood pressure 128/60, pulse 99, respirations 19, pulse ox 97% on room air, weight 154.6 pounds. Respiratory: Respirations are easy and unlabored with patient at rest. Lung sounds are clear and diminished. Heart: Rate and rhythm regular. Abdomen: Soft and nontender with palpation. Bowel sounds present x4. Extremities: Nonedematous. Musculoskeletal: Right upper extremity splint is intact. The patient moves all fingers, full sensorium is stated. Cap refill is brisk, there is swelling, no bruising noted to the fingers. Right hip dressings x3, dry and intact. There is mild bruising noted to the proximal tib-fib area. The patient moves right lower extremity without difficulty. Full sensorium is stated. Right pedal pulse is palpable. IMPRESSION AND PLAN: 1. Fracture of the right radius and ulnar and fracture to the right femur, subsequent encounter with routine healing. Patient will continue with acetaminophen for lesser pain, oxycodone for more severe pain, methocarbamol, and is on Lovenox injections, end date, November 12, 2023. The patient will continue following with [facility]opedic [facility] and has seen Dr. Lemons today. Continue with [facility]. 2. Iron deficiency anemia, on ferrous sulfate. 3. Urinary tract infection. No urinary symptoms identified. 4. Coronary artery disease. No coronary concerns identified, on aspirin, nifedipine, metoprolol, and Plavix. 5. Hyponatremia, on sodium chloride tab. DICTATED BY: VERENA Wallis/AQT JOB# [id number] [facility]06-06-2024 History of Present illness Narrative* Andrea Alonso APRN.VERENA - 10/18/2023 12:00 AM EDT [facility] NOTE NAME: CATHERINE ADAMSON [facility] NO.: [id number] DATE OF SERVICE: 10/18/2023 ATTENDING PHYSICIAN: VERENA Wallis [facility] Chart Note REASON FOR VISIT: The patient is a resident of [facility]. This is a skilled visit for fracture of the right radius and ulnar and right femur fracture, subsequent encounter with routine healing and other medical concerns. Upon entering the room, found the patient calm, alert, sitting up in bed with supplemental oxygen on. The patient does not appear to be in distress or discomfort. Whenasking the patient about the supplemental oxygen, the patient states has it on to feel better. The patient does not use supplemental oxygen at home, but states she uses this for when she does not have her inhaler on hand to make her feel better. The patient states she has no cough or shortness of br eath. The patient states at times does have pain to the right hip and right wrist. Patient states no pain at this time. States no fever, chills, or nausea. States no cough or shortness of breath. States her appetite is good and bowels have been moving. States drinks fluids, but drinks approximately1 to 2 glasses of water a day. Did express to the patient to attempt to increase her fluid intake to 2 to 3 glasses a day. The patient states she has no urinary symptoms. The patient states no paresthesia to the right upper and right lower extremity. MEDICATIONS: Have been reviewed. EXAMINATION: Temp 97.2, blood pressure 111/70, pulse 89, respirations 19, pulse ox 97% on room air,weight 157.4 pounds. Respiratory: Respirations are easy and unlabored with patient at rest. Lung sounds are clear. Heart: Rate and rhythm regular. Abdomen: Soft, no tenderness noted with palpation. Bowel sounds present x4. Extremities: Nonedematous. Musculoskeletal: Right upper extremity posterior splint is noted to be intact. The patient moves all fingers, full sensorium stated distally. Cap refill is brisk. There is swelling, slight bruising noted to the fingers. Full sensorium is stated. Right lower extremity at the hip, 3 dressings are dry and intact to the lateral aspect of the right hipand right upper femoral area. The patient has limited range of motion to the right hip. Full sensorium stated distally. Cap refill is brisk. IMPRESSION AND PLAN: 1. Radius and ulnar fracture, subsequent encounter with routine healing. Continue to monitor for neurovascular compromise. Cool compress ordered. Does take Lovenox prophylactically for deep vein thrombosis, Robaxin routinely, acetaminophen for lesser pain and oxycodone for moresevere pain. 2. Right femur fracture, subsequent encounter with routine healing. Again, the patient will follow with [facility]opedic [facility]. Continue with [facility]. Continue to monitor for neurovascular compromise. Use medications for pain as ordered. 3. Vitamin D deficiency. Monitoring lab work. 4. Urinary tract infection. The patient has completed antibiotic therapy, no urinary symptoms identified. 5. Dehydration, encourage fluids. 6. Coronary artery disease without angina. No coronary concerns are identified on aspirin, nifedipine, and Plavix. 7. Hyponatremia, sodium 135. LABS REVIEWED: October 17, 2023, chemistry abnormals, sodium 135, creatinine 0.4, all other labs withinnormal range. Hematology abnormals, RBCs 2.76, hemoglobin 9.3, hematocrit 27.5, platelets 545,000, monocyte 15.4, all other labs within normal range. DICTATED BY: VERENA Wallis/LUIS JOB# [id number] [facility]-2024 NoteHNO ID: [id number] Author: ANDREA ALONSO APRN.VERENA Service: ? Author Type: Nurse Specialist Type: Progress Notes Filed: 10/22/2023 07:58 Note Text: [facility] NOTE NAME: CATHERINE ADAMSON [facility] NO.: [id number] DATE OF SERVICE: 10/18/2023 ATTENDING PHYSICIAN: VERENA Wallis [facility] Chart Note REASON FOR VISIT: The patient is a resident of [facility]. This is a skilled visit for fracture of the right radius and ulnar and right femur fracture, subsequent encounter with routine healing and other medical concerns. Upon entering the room, found the patient calm, alert, sitting up in bed with supplemental oxygen on. The patient does not appear to be in distress or discomfort. When asking the patient about the supplemental oxygen, the patient states has it on to feel better. The patient does not use supplemental oxygen at home, but states she uses this for when she does not have her inhaler on hand to make her feel better. The patient states she has no cough or shortness of breath. The patient states at times does have pain to the right hip and right wrist. Patient states no pain at this time. States no fever, chills, or nausea. States no cough or shortness of breath. States her appetite is good and bowels have been moving. States drinks fluids, but drinks approximately 1 to 2 glasses of water a day. Did express to the patient to attempt to increase her fluid intake to 2 to 3 glasses a day. The patient states she has no urinary symptoms. The patient states no paresthesia to the right upper and right lower extremity. MEDICATIONS: Have been reviewed. EXAMINATION: Temp 97.2, blood pressure 111/70, pulse 89, respirations 19, pulse ox 97% on room air, weight 157.4 pounds. Respiratory: Respirations are easy and unlabored with patient at rest. Lung sounds are clear. Heart: Rate and rhythm regular. Abdomen: Soft, no tenderness noted with palpation. Bowel sounds present x4. Extremities: Nonedematous. Musculoskeletal: Right upper extremity posterior splint is noted to be intact. The patient moves all fingers, full sensorium stated distally. Cap refill is brisk. There is swelling, slight bruising noted to the fingers. Full sensorium is stated. Right lower extremity at the hip, 3 dressings are dry and intact to the lateral aspect of the right hip and right upper femoral area. The patient has limited range of motion to the right hip. Full sensorium stated distally. Cap refill is brisk. IMPRESSION AND PLAN: 1. Radius and ulnar fracture, subsequent encounter with routine healing. Continue to monitor for neurovascular compromise. Cool compress ordered. Does take Lovenox prophylactically for deep vein thrombosis, Robaxin routinely, acetaminophen for lesser pain and oxycodone for more severe pain. 2. Right femur fracture, subsequent encounter with routine healing. Again, the patient will follow with Orthopedic Services. Continue with [facility]. Continue to monitor for neurovascular compromise. Use medications for pain as ordered. 3. Vitamin D deficiency. Monitoring lab work. 4. Urinary tract infection. The patient has completed antibiotic therapy, no urinary symptoms identified. 5. Dehydration, encourage fluids. 6. Coronary artery disease without angina. No coronary concerns are identified on aspirin, nifedipine, and Plavix. 7. Hyponatremia, sodium 135. LABS REVIEWED: October 17, 2023, chemistry abnormals, sodium 135, creatinine 0.4, all other labs within normal range. Hematology abnormals, RBCs 2.76, hemoglobin 9.3, hematocrit 27.5, platelets 545,000, monocyte 15.4, all other labs within normal range. DICTATED BY: VERENA Wallis/SURINDERT JOB# [id number] [facility]06-03-2024 NoteMicrobiology PROCEDURE: Blood Culture Charcoal [R1] SOURCE: Blood BODY SITE: Hand L COLLECTED DATE/TIME: 10/08/2023 15:28 EDT RECEIVED DATE/TIME: 10/08/2023 15:39 EDT START DATE/TIME: 10/08/2023 15:39 EDT FREE TEXT SOURCE: Rigo Anderson DO, DO, John FINAL REPORTS Final Report [] Verified Date/Time: 10/15/2023 18:00 EDT No growth at 7 days. Performing Locations R1: This test was performed at: [facility], [address] [place] [address], [address] [place] [address], [address] [place], [place] [address]Comment on above:Performed By: #### [id number] #### [facility] [address] [place] [address] [phone] NoteMicrobiology PROCEDURE: Blood Culture Charcoal [R1] SOURCE: Blood BODY SITE: Arm R COLLECTED DATE/TIME: 10/08/2023 15:35 EDT RECEIVED DATE/TIME: 10/08/2023 15:39 EDT START DATE/TIME: 10/08/2023 15:39 EDT FREE TEXT SOURCE: Rigo Anderson DO, DO, John FINAL REPORTS Final Report [] Verified Date/Time: 10/15/2023 18:00 EDT No growth at 7 days. Performing Locations R1: This test was performed at: [facility], [address] [place] [address], [address] [place] [address], [address] [place], [place] [address]Comment on above:Performed By: #### [id number] #### [facility] [address] [place] [address] [phone] History of Present illness Narrative* Lydia Calderón - 10/15/2023 12:00 AM EDT [facility] NOTE NAME: CATHERINE ADAMSON [facility] NO.: [id number] DATE OF SERVICE: 10/15/2023 ATTENDING PHYSICIAN: Lydia Calderón MD [facility] NEW PATIENT HISTORY AND PHYSICAL: HISTORY OF PRESENT ILLNESS: The patient is a 63-year-old female, was admitted to us from [facility] with the diagnosis of status post surgical repair of acute right intertrochanterichip fracture and right distal radius and ulna fracture secondary to accidental and mechanical fall,acute urinary tract infection, acute postop blood loss anemia, dehydration, elevated lipase with ramsay crease inflammation secondary to acute chronic alcohol use, CAD with previous myocardial infarctionand coronary stent placement, hypertension, history of alcohol abuse and ongoing smoking history, chronic hyponatremia, and hypokalemia, COPD, previous iron-deficiency anemia, and generalized weakness and debility. She was initially admitted to the hospital after experiencing an accidental fall at home where she was found on the ground. No reports of head trauma, loss of consciousness. Evaluationin the hospital did reveal findings consistent with right distal radius and ulna fracture as well as right intertrochanteric hip fracture. She was seen in consultation by the orthopedic service and did undergo surgical repair of all fractures. She is also treated for an acute urinary tract infection. He was given IV fluids for dehydration. Laboratory testing did reveal elevated lipase levels consistent with pancreatitis information related to her ongoing daily beer consumption, though she denies being an alcoholic or having any history of withdrawals. She also developed acute postop blood loss anemia on top of her chronic iron-deficiency anemia. Her condition was stabilized and she is now admitted to our facility for continued therapy prior to returning back to her apartment where she lives by herself. REVIEW OF SYSTEMS: She is currently sitting up in her room, in a wheelchair. She is alert and oriented. She has had no change in her vision or hearing or actual syncope. She currently denies being short of breath. She does have underlying asthma COPD, which has been stable. She does not use home oxygen therapy. She apparently does have an inhaler that she uses as indicated. No recent pneumonias. She claims to smoke 6 to 8 cigarettes daily. She does have a history of CAD with previous myocardialinfarction and coronary stent placement. She has had no recent symptoms. She denies any chest pain or angina, palpitations, or pacemakers. Her appetite has been fair. No bleeding ulcers, hepatitis, or melena. No prior strokes or seizures, diabetes mellitus, or blood clots. FAMILY HISTORY: Significant for hypertension. SOCIAL/FUNCTIONAL HISTORY: She does smoke almost half a pack cigarettes daily. She also admits to drinking at least 6 to 8 beers daily, but denies any history of withdrawal or DTs. She does live in her apartment by herself. MEDICATIONS: Apremilast 30 mg daily, ascorbic acid 500 mg b.i.d., aspirin 81 mg daily, cefdinir 300mg q.12 h. for 5 days, Plavix 75 mg daily, Lovenox 30 mg subcu b.i.d. for 30 days, ferrous sulfate 325 mg b.i.d., folic acid 1 mg daily, potassium 10 mEq b.i.d., lisinopril/hydrochlorothiazide 20/12.5 mg daily, methocarbamol 500 mg q.6 h., metoprolol succinate 25 mg daily, nifedipine ER 30 mg daily, oxycodone p.r.n., Senokot at bedtime, sodium chloride tablets 1 g daily, Symbicort inhaler b.i.d.,thiamine 100 mg daily, and Ventolin inhaler p.r.n. ALLERGIES: No known drug allergies. EXAMINATION: Afebrile, vital signs stable. She is in no distress. She appears chronically ill. HEENT: Extraocular movements intact, sclerae nonicteric. Ears intact. Lungs: Clear. Heart: Regular. Abdomen: Soft, nontender. Extremities: With no significant edema. Skin is warm and dry. Right distal armis in a splint. Fingers are slightly swollen. Nursing indicates her hip incision is intact. She does have generalized weakness. IMPRESSION: 1. Status post surgical repair of acute right distal radius and ulna fracture and rightintertrochanteric care fracture secondary to accidental mechanical fall - the patient will continueto receive daily incisional wound care. She is on Lovenox for DVT prophylaxis. She did develop postoperative blood loss anemia on top of her chronic iron- deficiency iron deficiency anemia. Continue current iron supplement, and we will obtain followup CBC and monitor blood counts closely. She will follow up with Orthopedic Service as outpatient. 2. Acute urinary tract infection - the patient will finish current course of antibiotics. Monitor urinary symptoms closely. 3. Dehydration - she did receive IV fluids in the hospital. Monitor fluid balance and renal function closely. We will obtain followup BMP. 4. Elevated lipase with pancreas inflammation secondary to chronic beer consumption - continue thiamin. She denies any history of withdrawal or delirium tremens. 5. Coronary artery disease with previous myocardial infarction and coronary stent placement - cardiac status appears stable at this time. Maintain current cardiac medication. 6. Hypertension - continue to monitor blood pressure closely, make adjustments as needed. 7. Chronic hyponatremia and hypokalemia - once again, we will obtain followup BMP, monitor electrolytes closely. Maintain current sodium chloride supplement. 8. Functional assessment - she does have generalized weakness. She will be receiving rehab servicesfor overall strengthening and conditioning. Overall, condition and prognosis is quite guarded. We will obtain followup labs including CBC and BMP. She will be returning back to her apartment upon completion of her therapy. DICTATED BY: MD PEYTON Burch/LUIS JOB# [id number] [facility] NoteHNO ID: [id number] Author: LYDIA CALDERÓN, ? Service: ? Author Type: Physician Type: Progress Notes Filed: 10/17/2023 11:13 Note Text: [facility] NOTE NAME: CATHERINE ADAMSON [facility] NO.: [id number] DATE OF SERVICE: 10/15/2023 ATTENDING PHYSICIAN: Lydia Calderón MD [facility] NEW PATIENT HISTORY AND PHYSICAL: HISTORY OF PRESENT ILLNESS: The patient is a 63-year-old female, was admitted to us from [facility] [place] with the diagnosis of status post surgical repair of acute right intertrochanteric hip fracture and right distal radius and ulna fracture secondary to accidental and mechanical fall, acute urinary tract infection, acute postop blood loss anemia, dehydration, elevated lipase with pancrease inflammation secondary to acute chronic alcohol use, CAD with previous myocardial infarction and coronary stent placement, hypertension, history of alcohol abuse and ongoing smoking history, chronic hyponatremia, and hypokalemia, COPD, previous iron-deficiency anemia, and generalized weakness and debility. She was initially admitted to the hospital after experiencing an accidental fall at home where she was found on the ground. No reports of head trauma, loss of consciousness. Evaluation in the hospital did reveal findings consistent with right distal radius and ulna fracture as well as right intertrochanteric hip fracture. She was seen in consultation by the orthopedic service and did undergo surgical repair of all fractures. She is also treated for an acute urinary tract infection. He was given IV fluids for dehydration. Laboratory testing did reveal elevated lipase levels consistent with pancreatitis information related to her ongoing daily beer consumption, though she denies being an alcoholic or having any history of withdrawals. She also developed acute postop blood loss anemia on top of her chronic iron-deficiency anemia. Her condition was stabilized and she is now admitted to our facility for continued therapy prior to returning back to her apartment where she lives by herself. REVIEW OF SYSTEMS: She is currently sitting up in her room, in a wheelchair. She is alert and oriented. She has had no change in her vision or hearing or actual syncope. She currently denies being short of breath. She does have underlying asthma COPD, which has been stable. She does not use home oxygen therapy. She apparently does have an inhaler that she uses as indicated. No recent pneumonias. She claims to smoke 6 to 8 cigarettes daily. She does have a history of CAD with previous myocardial infarction and coronary stent placement. She has had no recent symptoms. She denies any chest pain or angina, palpitations, or pacemakers. Her appetite has been fair. No bleeding ulcers, hepatitis, or melena. No prior strokes or seizures, diabetes mellitus, or blood clots. FAMILY HISTORY: Significant for hypertension. SOCIAL/FUNCTIONAL HISTORY: She does smoke almost half a pack cigarettes daily. She also admits to drinking at least 6 to 8 beers daily, but denies any history of withdrawal or DTs. She does live in her apartment by herself. MEDICATIONS: Apremilast 30 mg daily, ascorbic acid 500 mg b.i.d., aspirin 81 mg daily, cefdinir 300 mg q.12 h. for 5 days, Plavix 75 mg daily, Lovenox 30 mg subcu b.i.d. for 30 days, ferrous sulfate 325 mg b.i.d., folic acid 1 mg daily, potassium 10 mEq b.i.d., lisinopril/hydrochlorothiazide 20/12.5 mg daily, methocarbamol 500 mg q.6 h., metoprolol succinate 25 mg daily, nifedipine ER 30 mg daily, oxycodone p.r.n., Senokot at bedtime, sodium chloride tablets 1 g daily, Symbicort inhaler b.i.d., thiamine 100 mg daily, and Ventolin inhaler p.r.n. ALLERGIES: No known drug allergies. EXAMINATION: Afebrile, vital signs stable. She is in no distress. She appears chronically ill. HEENT: Extraocular movements intact, sclerae nonicteric. Ears intact. Lungs: Clear. Heart: Regular. Abdomen: Soft, nontender. Extremities: With no significant edema. Skin is warm and dry. Right distal arm is in a splint. Fingers are slightly swollen. Nursing indicates her hip incision is intact. She does have generalized weakness. IMPRESSION: 1. Status post surgical repair of acute right distal radius and ulna fracture and right intertrochanteric care fracture secondary to accidental mechanical fall - the patient will continue to receive daily incisional wound care. She is on Lovenox for DVT prophylaxis. She did develop postoperative blood loss anemia on top of her chronic iron- deficiency iron deficiency anemia. Continue current iron supplement, and we will obtain followup CBC and monitor blood counts closely. She will follow up with Orthopedic Service as outpatient. 2. Acute urinary tract infection - the patient will finish current course of antibiotics. Monitor urinary symptoms closely. 3. Dehydration - she did receive IV fluids in the hospital. Monitor fl (more content not included)...[facility]06-02-2024 [place] [id number] CATHERINE ADAMSON Date of : 1960 63 Years Female Attending Art GARCIA, Regi Costello. Date of Admission 10/08/2023 Date of Discharge 10/12/2023 DIAGNOSES: 1. Right distal radius and ulna fracture 2. Right intertrochanteric fracture 3. Elevated lipase with pancreas inflammation 4. Dehydration 5. UTI 6. Acute blood loss anemia postoperatively 7. CAD 8. Hypertension 9. History of alcohol abuse, nicotine abuse 10. Chronic hyponatremia 11. Chronic hypokalemia PROCEDURES: Procedures ORIF - Open reduction and internal fixation of fracture (10/09/2023) DISCHARGE MEDICATIONS: DISCHARGE MEDICATIONS Medication List Active Medications Ordered acetaminophen: 650 mg, 2 tab(s), Oral, q6hr. albuterol: 2.5 mg, 3 mL, Inhalation, QID, PRN: Wheezing. albuterol: 2.5 mg, 3 mL, Inhalation, BID. ascorbic acid: 500 mg, 1 tab(s), Oral, BIDWM. bisacodyl: 10 mg, 2 tab(s), Oral, Once, PRN: Constipation. bisacodyl: 10 mg, 1 supp, Rectal, Daily, PRN: Constipation. budesonide: 0.25 mg, 2 mL, NEB, BID. ceftriaxone + Sodium Chloride 0.9% intravenous solution 50 mL: 1,000 mg, 1 EA, 100 mL/hr, IV Piggyback, Daily. enoxaparin: 30 mg, 0.3 mL, SubCutaneous, BID. ferrous sulfate: 325 mg, 1 tab(s), Oral, BIDWM. folic acid: 1 mg, 1 tab(s), Oral, Daily. HYDROmorphone: 0.5 mg, 0.5 mL, IV Push, q4hr, PRN: Breakthrough Pain. magnesium hydroxide: 30 mL, Oral, BID, PRN: Constipation. methocarbamol: 500 mg, 1 tab(s), Oral, QID. metoprolol: 25 mg, 1 tab(s), Oral, Daily. NIFEdipine: 30 mg, 1 tab(s), Oral, Daily. ondansetron: 4 mg, 2 mL, IV Push, q6hr, PRN: Nausea/Vomiting. ondansetron: 4 mg, 2 mL, IV Push, q6hr, PRN: Nausea/Vomiting. oxycodone: 5 mg, 1 tab(s), Oral, q4hr, PRN: Pain 4-7. oxycodone: 10 mg, 2 tab(s), Oral, q4hr, PRN: Pain 8-10. potassium chloride: 10 mEq, 1 cap(s), Oral, Daily. senna: 8.6 mg, 1 tab(s), Oral, Once a day (at bedtime). sodium chloride: 1 gram, 1 tab(s), Oral, Daily. thiamine: 100 mg, 1 tab(s), Oral, Daily. Prescribed cefdinir: 300 mg, 1 cap(s), Oral, q12hr, for 5 day(s), 10 cap(s), 0 Refill(s). oxycodone: 5 mg, 1 tab(s), Oral, q6hr, for 5 day(s), PRN: for pain, 20 tab(s), 0 Refill(s). Documented acetaminophen: 650 mg, 2 tab(s), Oral, q6hr, 0 Refill(s). albuterol: puff(s), Inhalation, q6hr, 0 Refill(s). apremilast: 30 mg, Oral, Daily, 0 Refill(s). ascorbic acid: 500 mg, 1 tab(s), Oral, BIDWM, 0 Refill(s). aspirin: mg, tab(s), Oral, Daily, 0 Refill(s). bisacodyl: 10 mg, 1 supp, Rectal, Daily, PRN: Constipation, 0 Refill(s). bisacodyl: 10 mg, 2 tab(s), Oral, Once, PRN: Constipation, 0 Refill(s). budesonide-formoterol: 2 puff(s), Inhalation, BID, 0 Refill(s). clopidogrel: mg, tab(s), Oral, Daily, 0 Refill(s). enoxaparin: 30 mg, 0.3 mL, SubCutaneous, BID, for 30 day(s), 0 Refill(s). ferrous sulfate: 325 mg, 1 tab(s), Oral, BIDWM, 0 Refill(s). folic acid: 1 mg, 1 tab(s), Oral, Daily, 0 Refill(s). methocarbamol: 500 mg, 1 tab(s), Oral, QID, 0 Refill(s). metoprolol: mg, tab(s), Oral, Daily, 0 Refill(s). NIFEdipine: mg, tab(s), Oral, Daily, 0 Refill(s). nitroglycerin: 0 Refill(s). potassium chloride: mEq, Oral, BID, 0 Refill(s). senna: 8.6 mg, 1 tab(s), Oral, Once a day (at bedtime), 0 Refill(s). sodium chloride: 1 gm, 1 tab(s), Oral, Daily, 0 Refill(s). thiamine: 100 mg, 1 tab(s), Oral, Daily, 0 Refill(s). Medications Inactivated in the Last 72 Hours acetaminophen-oxycodone: 1 tab(s), Oral, q6hr, PRN: Pain 4-7. acetaminophen-oxycodone: 2 tab(s), Oral, q6hr, PRN: Pain 4-7. albuterol: 2.5 mg, 3 mL, Inhalation, Once. bacitracin topical: Misc, Once. bupivacaine: Misc, Once. cefazolin + Sodium Chloride 0.9% intravenous solution 50 mL: 2 gram, 1 EA, 100 mL/hr, IV Piggyback, Once. ceftriaxone: Misc, Once. ceftriaxone: Misc, Once. ceftriaxone: Misc, Once. ceftriaxone: Misc, Once. dexamethasone: Misc, Once. dexamethasone: 4 mg, 1 mL, IV, Once. docusate: 100 mg, 1 cap(s), Oral, BID. enoxaparin: 30 mg, 0.3 mL, SubCutaneous, BID. fentanyl: Misc, Once. fentanyl: Misc, Once. fentanyl: 50 mcg, 1 mL, IV, Once. fentanyl: 50 mcg, 1 mL, IV, Once. HYDROmorphone: 1 mg, 1 mL, IV, Once. HYDROmorphone: 0.5 mg, 0.5 mL, IV, Once. HYDROmorphone: 0.5 mg, 0.5 mL, IV, Once. HYDROmorphone: 0.4 mg, 0.4 mL, IV Push, q4min, PRN: Pain. HYDROmorphone: 1 mg, 1 mL, IV Push, q2hr, PRN: Pain 8-10. ketorolac: Misc, Once. ketorolac: 30 mg, 1 mL, IV, Once. Lactated Ringers Injection: 500 mL, IV, Once. Lactated Ringers Injection: 1,000 mL, IV, Once. Lactated Ringers Injection: 200 mL, IV, Once. Lactated Ringers Injection 1,000 mL: 100 mL/hr, IV, Stop: 11/08/23 15:14:00 EDT. Lactated Ringers Injection 1,000 mL: 150 mL/hr, IV, Stop: 11/08/23 14:44:00 EDT. Lactated Ringers Injection 1,000 mL: 80 mL/hr, IV, Stop: 11/08/23 18:15:00 (more content not included)...[facility]Result Comment: Electronically Signed By: Mckenzie Lerma PA-C\.br\Date and Time Signed: 10/12/23 11:39 EDT\.br\Electronically Co-Signed By: Regi Cordova MD\.br\Date and Time Co-Signed: 10/14/23 12:17 [id number] Hospital Discharge instructions Patient Education 10/12/2023 11:32:57 Incentive Spirometer Record Incentive Spirometer Record Use your incentive spirometer as told by your health care provider. Your health care provider or respiratory therapist will help you set a goal. Breathe in slowly and as deeply as you can through your mouth. This will cause the piston or the ball to rise toward the top of the chamber. Try to reach the goal marker set on the spirometer. Use this form to write down your progress. Use additional notebook paper, if needed. Bring this form with you to your follow-up visits. My incentive spirometer goal is to reach . Date Time Amount reached Date Time Amount reached Date Time Amount reached Date Time Amount reached Date Time Amount reached Date Time Amount reached Date Time Amount reached Date Time Amount reached Date Time Amount reached Date Time Amount reached Date Time Amount reached Date Time Amount reached Date Time Amount reached Date Time Amount reached Date Time Amount reached Date Time Amount reached Date Time Amount reached Date Time Amount reached Date Time Amount reached Date Time Amount reached Date Time Amount reached Date Time Amount reached Date Time Amount reached Date Time Amount reached Date Time Amount reached Date Time Amount reached This information is not intended to replace advice given to you by your health care provider. Make sure you discuss any questions you have with your health care provider. Document Revised: 07/19/2020 Document Reviewed: 07/19/2020 [employer] Patient Education 2022 [employer] 10/12/2023 11:32:55 How to Use an Incentive Spirometer How to Use an Incentive Spirometer An incentive spirometer is a tool that measures how well you are filling your lungs with each breath. Learning to take long, deep breaths using this tool can help you keep your lungs clear and active. This may help to reverse or lessen your chance of developing breathing (pulmonary) problems, especially infection. You may be asked to use a spirometer: After a surgery. If you have a lung problem or a history of smoking. After a long period of time when you have been unable to move or be active. If the spirometer includes an indicator to show the highest number that you have reached, your health care provider or respiratory therapist will help you set a goal. Keep a log of your progress as told by your health care provider. What are the risks? Breathing too quickly may cause dizziness or cause you to pass out. Take your time so you do not get dizzy or light-headed. If you are in pain, you may need to take pain medicine before doing incentive spirometry. It is harder to take a deep breath if you are having pain. How to use your incentive spirometer 1.Sit up on the edge of your bed or on a chair. 2.Hold the incentive spirometer so that it is in an upright position. 3.Before you use the spirometer, breathe out normally. 4.Place the mouthpiece in your mouth. Make sure your lips are closed tightly around it. 5.Breathe in slowly and as deeply as you can through your mouth, causing the piston or the ball to rise toward the top of the chamber. 6.Hold your breath for 3 5 seconds, or for as long as possible. If the spirometer includes a head athletic trainer/strength coach indicator, use this to guide you in breathing. Slow down your breathing if the indicator goes above the marked areas. 7.Remove the mouthpiece from your mouth and breathe out normally. The piston or ball will return tothe bottom of the chamber. 8.Rest for a few seconds, then repeat the steps 10 or more times. Take your time and take a few normal breaths between deep breaths so that you do not get dizzy or light-headed. Do this every 1 2 hours when you are awake. 9.If the spirometer includes a goal marker to show the highest number you have reached (best effort), use this as a goal to work toward during each repetition. 10.After each set of 10 deep breaths, cough a few times. This will help to make sure that your lungs are clear. If you have an incision on your chest or abdomen from surgery, place a pillow or a rolled-up towel firmly against the incision when you cough. This can help to reduce pain while taking deep breaths and coughing. General tips When you are able to get out of bed: ?Walk around often. ?Continue to take deep breaths and cough in order to clear your lungs. Keep using the incentive spirometer until your health care provider says it is okay to stop using it. If you have been in the hospital, you may be told to keep using the spirometer at home. Contact a health care provider if: You are having difficulty using the spirometer. You have trouble using the spirometer as often as instructed. Your pain medicine is not giving enough relief for you to use the spirometer as told. You have a fever. Get help right away if: You develop shortness of breath. You develop a cough with bloody mucus from the lungs. You have fluid or blood coming from an incision site after you cough. Summary An incentive spirometer is a tool that can help you learn to take long, deep breaths to keep your lungs clear and active. You may be asked to use a spirometer after a surgery, if you have a lung problem or a history of smoking, or if you have been inactive for a long period of time. Use your incentive spirometer as instructed every 1 2 hours while you are awake. If you have an incision on your chest or abdomen, place a pillow or a rolled-up towel firmly against your incision when you cough. This will help to reduce pain. Get help right away if you have shortness of breath, you cough up bloody mucus, or blood comes fromyour incision when you cough. This information is not intended to replace advice given to you by your health care provider. Make sure you discuss any questions you have with your health care provider. Document Revised: 07/19/2020 Document Reviewed: 07/19/2020 [employer] Patient Education 2022 [employer] 10/12/2023 09:52:37 Hip Fracture Hip Fracture A hip fracture is a break in the upper part of the thigh bone (femur). This is usually the result of an injury, commonly a fall. What are the causes? This condition may be caused by: A direct hit or injury (trauma) to the side of the hip, such as from a fall or a car accident. What increases the risk? You are more likely to develop this condition if: You have poor balance or an unsteady walking pattern (gait). Certain conditions contribute to poor balance, including Parkinson disease and dementia. You have thinning or weakening of your bones, such as from osteopenia or osteoporosis. You have cancer that spreads to the leg bones. You have certain conditions that can weaken your bones, such as thyroid disorders, intestine disorders, or a lack (deficiency) of certain nutrients. You smoke. You take certain medicines, such as steroids. You have a history of broken bones. What are the signs or symptoms? Symptoms of this condition include: Pain over the injured hip. This is commonly felt on the side of the hip or in the front groin area. Stiffness, bruising, and swelling over the hip. Pain with movement of the leg, especially lifting it up. Pain often gets better with rest. Difficulty or inability to stand, walk, or use the leg to support body weight (put weight on the leg). The leg rolling outward when lying down. The affected leg being shorter than the other leg. How is this diagnosed? This condition may be diagnosed based on: Your symptoms. A physical exam. X-rays. These may be done: ?To confirm the diagnosis. ?To determine the type and location of the fracture. ?To check for other injuries. MRI or CT scans. These may be done if the fracture is not visible on an X-ray. How is this treated? Treatment for this condition depends on the severity and location of your fracture. In most cases, surgery is necessary. Surgery may involve: Repairing the fracture with a screw, nail, or vidya to hold the bone in place (open reduction and internal fixation, ORIF). Replacing the damaged parts of the femur with metal implants (hemiarthroplasty or arthroplasty). If your fracture is less severe, or if you are not eligible for surgery, you may have non-surgical treatment. Non-surgical treatment may involve: Using crutches, a walker, or a wheelchair until your health care provider says that you can support(bear) weight on your hip. Medicines to help reduce pain and swelling. Having regular X-rays to monitor your fracture and make sure that it is healing. Physical therapy. You may need physical therapy after surgery, too. Follow these instructions at home: Activity Do not use your injured leg to support your body weight until your health care provider says that you can. ?Follow standing and walking restrictions as told by your health care provider. ?Use crutches, a walker, or a wheelchair as directed. Avoid any activities that cause pain or irritation in your hip. Ask your health care provider what activities are safe for you. Do not drive or use heavy machinery until your health care provider approves. If physical therapy was prescribed, do exercises as told by your health care provider. General instructions Take [id number] and prescription medicines only as told by your health care provider. If directed, put ice on the injured area: ?Put ice in a plastic bag. ?Place a towel between your skin and the bag. ?Leave the ice on for 20 minutes, 2 3 times a day. Do not use any products that contain nicotine or tobacco, such as cigarettes and e-cigarettes. These can delay bone healing. If you need help quitting, ask your health care provider. Keep all follow-up visits as told by your health care provider. This is important. How is this prevented? To prevent falls at home: ?Use a cane, walker, or wheelchair as directed. ?Make sure your rooms and hallways are free of clutter, obstacles, and cords. ?Install grab bars in your bedroom and bathrooms. ?Always use handrails when going up and down stairs. ?Use nightlights around the house. Exercise regularly. Ask what forms of exercise are safe for you, such as walking and strength and balance exercises. Visit an eye doctor regularly to have your eyesight checked. This can help prevent falls. Make sure you get enough calcium and vitamin D. Do not use any products that contain nicotine or tobacco, such as cigarettes and e-cigarettes. If you need help quitting, ask your health care provider. Limit alcohol use. If you have an underlying condition that caused your hip fracture, work with your health care provider to manage your condition. Contact a health care provider if: Your pain gets worse or it does not get better with rest or medicine. You develop any of the following in your leg or foot: ?Numbness. ?Tingling. ?A change in skin color (discoloration). ?Skin feeling cold to the touch. Get help right away if: Your pain suddenly gets worse. You cannot move your hip. Summary A hip fracture is a break in the upper part of the thigh bone (femur). Treatment typically requires surgical management to restore stability and function to the hip. Pain medicine and icing of the affected leg can help manage pain and swelling. Follow directions astold by your health care provider. This information is not intended to replace advice given to you by your health care provider. Make sure you discuss any questions you have with your health care provider. Document Revised: 12/31/2020 Document Reviewed: 12/31/2020 [employer] Patient Education 2021 [employer]. 10/12/2023 09:52:23 Colles Fracture Colles Fracture A Colles fracture is a type of broken wrist. It means that the radius bone is broken or cracked near the wrist joint. The radius is one of two bones in the forearm. It is on the same side as the thumb. The other forearm bone is called the ulna. Often, when someone has a Colles fracture, the ulna isalso broken. As this injury heals, a splint or a cast is used to prevent the injured bone from moving (keep it immobilized). What are the causes? Common causes of this type of fracture include: A hard, direct hit to the wrist. Injuries, such as a car crash or falling on an outstretched hand. What increases the risk? The following factors may make you more likely to develop this condition: Playing contact sports or high-risk sports, such as skiing, biking, or ice-skating. Smoking. Drinking more than three alcoholic beverages a day. Having low or lowered bone density (osteoporosis or osteopenia). Being an older adult. Young children also have a higher risk. Being a woman who has gone through menopause. Having a history of bone fractures. Not getting enough (having a deficiency in) calcium or vitamin D. What are the signs or symptoms? Symptoms of this condition include: Tenderness, bruising, and swelling over the fracture, which is usually near the wrist. The wrist hanging in an odd position or looking misshapen (deformed). Difficulty moving the wrist. How is this diagnosed? This condition may be diagnosed based on: A physical exam. Your symptoms and medical history. An X-ray of the forearm and wrist. How is this treated? Treatment depends on many factors, including your age, your activity level, and how severe your fracture is. Treatment may include: Immobilizing the wrist with a splint or a cast for several weeks. Before a splint or cast is placedon the arm, the health care provider may move the fractured bone or bones back into place (realignment). Surgery. This may be done if the bone is completely out of place (displaced). Metal pins or other devices may be used to help hold the bone in place while it heals. After surgery, the arm is put in asplint or cast. Physical therapy. Pain medicine. Follow these instructions at home: If you have a splint: Wear the splint as told by your health care provider. Remove it only as told by your health care provider. Loosen the splint if your fingers tingle, become numb, or turn cold and blue. Keep the splint clean. If your splint is not waterproof: ?Do not let it get wet. ?Cover it with a watertight covering when you take a bath or a shower. If you have a cast: Do not stick anything inside the cast to scratch your skin. Doing that increases your risk for infection. Check the skin around the cast every day. Tell your health care provider about any concerns. You may put lotion on dry skin around the edges of the cast. Do not put lotion on the skin underneath the cast. Keep the cast clean. If the cast is not waterproof: ?Do not let it get wet. ?Cover it with a watertight covering when you take a bath or a shower. Managing pain, stiffness, and swelling If directed, put ice on the injured area. To do this: ?If you have a removable splint, remove it as told by your health care provider. ?Put ice in a plastic bag. ?Place a towel between your skin and the bag, or between your cast and the bag. ?Leave the ice on for 20 minutes, 2 3 times a day. ?Remove the ice if your skin turns bright red. This is very important. If you cannot feel pain, heat, or cold, you have a greater risk of damage to the area. Move your fingers often to reduce stiffness and swelling. Raise (elevate) your wrist above the level of your heart while you are sitting or lying down. Activity Do not lift anything that is heavier than 10 lb (4.5 kg), or the limit that you are told, until your health care provider says that it is safe. Do not use your arm to support your body weight until your health care provider says that you can. Ask your health care provider when it is safe to drive if you have a splint or cast on your arm. Return to your normal activities as told by your health care provider. Ask your health care provider what activities are safe for you. If physical therapy was prescribed, do exercises as told by your health care provider. Medicines Take izlt-gsr-zuknhty and prescription medicines only as told by your health care provider. Ask your health care provider if the medicine prescribed to you: ?Requires you to avoid driving or using machinery. ?Can cause constipation. You may need to take these actions to prevent or treat constipation: ?Drink enough fluid to keep your urine pale yellow. ?Take jbcd-bsi-krkucje or prescription medicines. ?Eat foods that are high in fiber, such as beans, whole grains, and fresh fruits and vegetables. ?Limit foods that are high in fat and processed sugars, such as fried or sweet foods. General instructions Do not put pressure on any part of the splint or cast until it is fully hardened. This may take several hours. Do not use any products that contain nicotine or tobacco, such as cigarettes, e- cigarettes, and chewing tobacco. These can delay bone healing. If you need help quitting, ask your health care provider. Keep all follow-up visits. This is important. Contact a health care provider if: Your splint or cast: ?Gets wet or damaged. ?Suddenly feels too tight. You have a fever or chills. You have pain that does not get better with medicine. You have swelling that gets worse. Get help right away if: Your hand or fingers become numb or turn cold, blue, or sinclair. You have tingling or numbness in your fingers, even after you loosen your splint (if this applies). Summary A Colles fracture is a type of broken wrist. It often involves both of the bones in the forearm (radius and ulna). Fractures are common in people who play contact sports or high-risk sports. They are also common inolder people who are at risk for osteoporosis. This injury is diagnosed with a physical exam and X-rays. Your wrist will need to be held in place (immobilized) with a splint or cast for several weeks. Youmay need surgery for a more severe fracture. This information is not intended to replace advice given to you by your health care provider. Make sure you discuss any questions you have with your health care provider. Document Revised: 08/09/2020 Document Reviewed: 08/09/2020 [employer] Patient Education 2022 [employer]. Follow Up Care 10/08/2023 11:57:47 With:Chana Lemons Address: [address] [place], [place] [id number] Business (1) When: Unknown Comments:Call for followup appointment 2-3 weeks for staple removal right hip and recheck right wrist and hip. With:XIMENA ASTUDILLO Address: [address] [place] [id number] Business (1) When: Unknown [facility]05-31-2024 NoteBedside report [facility] Discharge summary, SBAR, med rec, and scripts faxed over to facility. Mini chart and rest of original paperwork to be sent with [facility] showroom sales assistant when patient is picked up around 1pm. Marci DICKINSON updated on POC.[facility] [place]05-30-[facility] Evaluation + Plan noteExtracted from: Title:Right hip IMN/wrist CRPP POD#2 Author:Chana Willis DO Date:10/11/23 Impression and Plan Diagnosis S/P right hip IMN and right wrist CRPP POD #2 osteoporosis UTI Stable post surgical acute blood loss anemia CAD, HTN, tobacco/alcohol abuse. Orders Analgesics. Mechanical and pharmacological DVT prophylaxis. PT/OT cont with NWB right wrist 4 weeks/50% PWB rt leg 4 weeks. Alcohol/tobacco risk factors reviewed. Social service discharge planning, d/c when medically stable. F/U 2-3 weeks in office. Lovenox 30MG BID 10 days. Resume Plavix. . Extracted from: Title:ANES Post-operative Note---General Author: Gary Álvarez Jr, DO Date:10/09/23 Plan Transfer/Discharge: Transfer/Discharge Discharge when meets criteria ( From PACU to floor ). Extracted from: Title:Op Note skeleton Author:Chana Lemons DO Date:10/09/23 Impression and Plan Diagnosis Pre-op dx-rt hip 3 pt IT hip fx, right impacted distal radius fracture Post-op dx-same Procedure-rt hip IMn, wrist CRPP Anesthesia-gen álvarez [id number]-100cc TT-0 To Recovery Room in stable and satisfactory condition.. Extracted from: Title:ANES Pre-operative Note 2022 Author:Gary Álvarez Jr, DO Date:10/09/23 Plan [place] [employer]esthesi[employer] (ASA) physical status classification: Class IV. Anesthetic Preoperative Plan: Anesthesia General. Extracted from: Title:ED Note Author:Rigo Anderson DO Date:09/12 12/04 Alcohol abuse (F10.10: Alcoh ol abuse, uncomplicated) Colles' fracture (S52.539A: Colles' fracture of unspecified radius, initial encounter for closed fracture) Hip fracture, right (S72.001A: Fracture of unspecified part of neck of right femur, initial encounter for closed fracture) Pancreatitis, acute (K85.90: Acute pancreatitis without necrosis or infection, unspecified) Rhabdomyolysis (M62.82: Rhabdomyolysis) Orders: morphine, 4 mg = 2 mL, Injection, IV Push, Once, Stop date 10/08/23 12:02:00 EDT, STAT, Start date 10/08/23 12:02:00 EDT, 10/08/23 12:02:00 EDT ondansetron, 4 mg = 2 mL, Injection, IV Push, Once, Stop date 10/08/23 12:02:00 EDT, STAT, Start date 10/08/23 12:02:00 EDT, 10/08/23 12:02:00 EDT Sodium Chloride 0.9% intravenous solution, 1,000 mL, Soln-IV, IV, Once, Stop date 10/08/23 12:00:00 EDT, STAT, Start date 10/08/23 12:00:00 EDT, Infuse over 61, minute(s) Sodium Chloride 0.9% intravenous solution 1,000 mL, 1,000 mL, IV, bolus, STAT, Start date 10/08/23 13:59:00 EDT, Total volume (mL): 1,000, Bolus Dose: 1,000 mL, 66.8 kg, 1.78, m2 ABO/Rh ABO/Rh History Check Antibody Screen Basic Metabolic Panel Blood Bank ID# Capillary Glucose POC CBC w/ Auto Diff Creatine Kinase CT Abdomen/Pelvis w/o Contrast CT Chest w/o Contrast CT Head or Brain w/o Contrast CT Spine Cervical w/o Contrast Drug Screen Urine ED Cardiac Monitoring eGFR Ethanol Level Hepatic Function Panel Lactic Acid Lipase Level Magnesium Level Oxygen Therapy PT & PTT Pulse Oximetry Continuous Saline Lock Insert Troponin UA with Cult Rflx Urinary Catheter Insertion Urine Culture XR Forearm 2 Views Right XR Hip 2-3 Views Right + Pelvis XR Wrist 3+ Views Right Addendum by Rigo Anderson DO on October 08, 2023 15:10:52 EDT At 1427 the urinalysis returned positive for UTI. Therefore I did add on blood cultures lactate had previously been drawn. Patient does have tachycardia therefore does have criteria for SIRS and sepsis. Patient is started here on IV Rocephin and treated with 2 L IV fluid bolus satisfying the 30 mL/kg bolus based on ideal body weight. [facility]05-30-2024 Cammy Cyr PA-C, dictating for Chana Lemons D.O. PROGRESS NOTE: 10/10/2023 A 63-year-old female who was in Room 320 this morning. Catherine is postop day one from right wrist closed reduction and percutaneous pinning as well as right hip fracture with intramedullary nail. Vital Signs: The patient is afebrile, 36.4. Blood pressure is stable at 113/76, pulse is 100, respirations 18. She is running anywhere from 95% to 99% on room air. She is pleasant, states that her pain is controlled, appears to be in no acute distress. She is alert and oriented this morning. She has hopes to stay in the hospital for a couple of days until they can get her urinary tract under control as well as pain and then has plans to go to an area nursing facility for recovery. She is going to be nonweightbearing use of the right wrist but will be 50% weightbearing on the right hip and will need some type of platform with a walker once Therapy has worked with her. Right wrist splint is dry and intact. She has good sensation to all the digits, no excessive swelling or discoloration noted today. Her right hip dressing is dry and intact. She does have an ice pack present and is able to move her foot and ankle with good sensation to her toes on that right side. Hemoglobin and hematocrit today: She is stabilized 11.2 and 33.2, which are actually up from the operative day. WBC is 13.9, again afebrile. Orthopedic assessment today. PLAN: Dr. Lemons will see her tomorrow. We will allow for hospitalist to determine discharge regarding other general health problems, and she will follow up in the office in four weeks for x-ray and pin removal of the wrist and splint adjustment and x-ray assessment of both the right wrist and hip. Adolfo Gauthier Dictated: 10/10/2023 [id number] Transcribed: 10/10/2023[facility]Result Comment: Electronically Signed By: Chana Lemons DO\.br\Date and Time Signed: 10/11/23 07:07 [id number] NotePT Evaluation completed with an AMPA score of 02/04. Pt requires Mod/MaxA x 2 to sit EOB and neededMod A x 2 to stand. Pt was able to rest on platform walker, but unable to ambulate at this time due to pain. Will follow daily, but SNF recommended as pt unsafe to return home [facility]05-28-2024 NoteHOSPITAL REGULATIONS: All Positive and Important Negative Findings Shall Be Recorded Date of Consultation: 10/09/2023 Attending Physician:Regi Cordova M.D. Consulting Physician: Chana Lemons D.O. ORTHOPEDIC CONSULTATION REFERRING PHYSICIAN: Rigo Andesron D.O. REASON FOR CONSULTATION: Right wrist and hip injury. HISTORY OF PRESENT ILLNESS: Catherine is a 63-year-old female well known to me for prior knee surgeries. 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 She does drink six to eight beers a day on average. She lives home alone. She is left-hand dominant. She subsequently fell and she states she was on the floor or ground for three days prior to presentation. Her sister kept calling and then found out she was on the ground. She did not have her phone on her and could not mobilize. She had some excoriation and abrasions around her thigh and pelvis area but nothing around the hip or wrist. She has closed injuries. She was seen and evaluated by Dr. Anderson with workup with negative CT scans per his report and laboratory studies. PAST MEDICAL HISTORY: Consistent with alcohol and tobacco abuse, chronic obstructive pulmonary disease, hypertension, coronary artery disease with Plavix therapy. ALLERGIES: No known drug allergies. PHYSICAL EXAMINATION: Has a BMI of 24.93, 36.4, pulse 100, respirations 20, blood pressure 118/72. She is 95% on room air. She is in room number 209. Nursing staff is present. Her right wrist is in avolar splint. She has mild swelling. Compartments are supple. Moderate tenderness of the distal radius and ulnar styloid. She has appropriate capillary refill, although her fingers are crunched in the splint and will be modified post surgery. Her right leg is shortened and externally rotated. Thereis mild to moderate swelling to the hip itself, no hematoma or compartment syndrome. There is no active abrasion or blistering or wound over the hip itself or upper thigh. She has some chronic excoriations to her ankle area. There is moderate to severe tenderness to the right hip. Log roll producespain to the right, negative on the left. LABORATORY STUDIES: Show this morning hemoglobin of 10.8, platelets 408, creatinine 0.6, AST 65, alkaline phosphatase 106, PTT 47.8. X-rays of the wrist show a comminuted moderately impacted distal radius fracture. It is three-part and intraarticular. There is loss of volar tilt as well as significant shortening. There is an ulnarstyloid component that is mildly displaced at the base. Right pelvis and hip x-rays are performed and show a three-part osteoporotic intertrochanteric fracture. There are 95 degrees of varus positioning, moderate displacement. Pathologic osteoporotic component is present to both fractures. The hip degenerative changes are mild to moderate. There is no sign of avascular necrosis. ASSESSMENT: 1. Status post subacute fall compounded by alcohol abuse with osteoporotic pathologic comminuted right distal radius fracture with impaction with associated ulnar styloid component. 2. Osteoporotic-compounding right three-part intertrochanteric fracture with displacement and varusangulation. 3. Coronary artery disease with Plavix management. 4. Hypertension. 5. Chronic obstructive pulmonary disease with tobacco abuse. TREATMENT PLAN: The nature of the findings was discussed at length. A lengthy visit occurred at thebedside. We will attempt to call family members. She is n.p.o. after midnight. We will hold Plavix as well as her Lovenox. We discussed the pros, cons, risks, benefits of surgical pinning of the distal radius with splinting, postoperative healing time commitment, expectations were reviewed. Her osteoporosis was discussed with a potential malunion, nonunion, and hardware failure. This will be challenging because she will need to utilize a platform walker with physical therapy and cannot distribute weight for the next month through her wrist and will have to use her elbow area. We discussed thehip fracture requiring intramedullary nail application. The incision, dissection, anatomy, bleeding, time healing, potential need for transfusion were reviewed. With her alcohol abuse and liver disease, she does have a higher risk of bleeding postoperatively. Time healing and commitment, expectations were discussed. This most likely will entail a 50% partial weightbearing for four weeks. Given her right wrist and right hip, most likely she will be a two- to three-day inpatient stay followed by rehabilitation placement. We will reach out to her point of contact, sister Jessica Duff. We willresume blood thinner on postoperative day one pending laboratory studies. Night Club Manager for rehabi litation placement, physical therapy for postoperative protocol. Consent form is signed and witnessed. We discussed the pros, cons, risks, benefits of both procedures. These will be done concomitantly together in the same Operating Room setting. This has the potential for infec (more content not included)...[facility]:Result Comment: Electronically Signed By: Chana Lemons DO\Date and Time Signed: 10/09/23 16:40 [id number] Note TRAUMA CONSULT / H&P Patient Name: CATHERINE ADAMSON Admission Date: 10/08/2023 11:57:18 Chief Complaint: Fall from standing Patient seen and examined on 10/08/2023 14:25:30 BASIC INJURY INFORMATION: Level of activation: Trauma Consult Mode of transport: [facility] Mechanism of injury: Fall Complicating features: Not applicable Protective measures: Not applicable HISTORY OF PRESENT INJURY: CATHERINE ADAMSON is a 63 Years-old Female with a PMHx of CAD, chronic hyponatremia, alcohol abuse,HTN, COPD, tobacco abuse presents s/p fall on . Pt reports she has been on the ground sincethat fall. Pt was not able to get up due to pain in the right hip. Pt did not hit her head or lose c onsciousness. Pt is endorsing RUE and RLE pain. Pt and family report that patient is a heavy drinker of 6-8 drinks a day. Denies any history of ETOH abuse. Pt last drink was when she fell. PRIMARY SURVEY: Airway: Intact Breathing: Normal Breath Sounds: Breath sounds equal bilaterally. Circulation: Pulses: Normal Skin: Warm, Dry Normal skin color, texture, and turgor. No rashes or lesions. Disability: Pupils: PEERL GCS: Best Eyes: 4 Best Verbal: 5 Best Motor: 6 Total: 15 SECONDARY SURVEY: Vital Signs (last 24 hrs) Last Charted Temp Axillary H 37.0 DegC (OCTOBER 07 11:59) Heart Rate Monitored H 123 bpm (OCTOBER 07 14:08) Resp Rate 19 br/min (OCTOBER 07 14:08) SBP 131 mmHg (OCTOBER 07 14:08) DBP H 91 mmHg (OCTOBER 07 14:08) Weight 66.8 kg (OCTOBER 07:59) BMI 23.07 (OCTOBER 07:59) Neurologic: Alert and oriented, appropriate, moves all extremities. Strength symmetrical, no sensory deficits. HEENT: Head: No lacerations, bony step-offs, or abrasions; midface stable to palpation. Eyes: PERRLA, conjunctiva/corneas without lesions., EOM intact. Ears: Not examined Nose: Septum midline, no crepitus with motion. No bloody drainage. Throat: Oral cavity without trauma. No malocclusion Neck: No midline tenderness. No step off or deformities. No lacerations/wounds. C-collar not in place Pulmonary: External exam: No crepitus or pain with palpation; no abrasions or contusions. Lung exam: Breath sounds clear, symmetrical; no wheezes, rales or consolidation. Cardiovascular: Pulses: Bilateral radial, femoral, DP and PT pulses are normal Abdomen: Appearance: Non-distended, no scars, lacerations, contusions. Palpation: No tenderness. Noperitonitis. Rectal: Rectal tone not examined. No gross blood noted. Pelvis/Perineum: Pelvis is stable to palpation. Normal appearing genitalia No blood noted at urethra meatus _ _ Musculoskeletal: Back/Spine: Diffuse midline spine tenderness. No step off or deformity noted. Extremities: RUE in short arm splint. RLE shortened and externall rotated. areas of skin break downto pelvis that follows pattern of patient's underwear. PAST MEDICAL HISTORY: HTN, CAD, ETOh abuse, tobacco abuse, COPD, psoriasis PAST SURGICAL HISTORY: Arthroscopy and biopsy of knee Arthrotomy of knee Tubal ligation PRE-ADMISSION MEDICATIONS: albuterol: puff(s), Inhalation, q6hr aspirin: mg = tab(s), Oral, Daily clopidogrel: mg = tab(s), Oral, Daily hydrochlorothiazide-lisinopril: tab(s), Oral, Daily magnesium sulfate/potass Cl/sodium sulf: See Instructions, Please follow instructions per packagingand physician's handout metoprolol: mg = tab(s), Oral, Daily NIFEdipine: mg = tab(s), Oral, Daily nitroglycerin potassium chloride: mEq, Oral, BID sodium chloride tramadol: mg = tab(s), Oral, q6hr ALLERGIES: Allergies (1) Active Severity Reaction No Known Allergies None Documented SOCIAL HISTORY: Social & Psychosocial History Social History Alcohol Beer, Daily Comment: over a six pack per day (10/08/2023 13:15 - Light Aubrey DICKINSON) Current, Beer, Daily, 6 drinks/episode average. 8.00 drinks/episode maximum. Started age 16 Years. Previous treatment: Alcoholics Anonymous, Inpatient. Alcohol use interferes with work or home: No. Drinks more than intended: Yes. Others hurt by drinking: No. Ready to change: No. Household alcohol concerns: No. Substance Abuse Denies Substance Abuse Tobacco 5-9 cigarettes (between 1/4 to 1/2 pack)/day in last 30 days Tobacco Use:. Cigarettes Psychosocial History No active psychosocial history has been recorded FAMILY HISTORY: No family history recorded. REVIEW OF SYSTEMS: Constitutional: no? fever, no? chills, no? sweats, no? weakness. Skin: no? Jaundice, no? rash, no? lesions, no? petechiae. ENMT: no? ear pain, no? sore throat, no? congestion, no? hoarseness. Respiratory: no? shortness of breath, no? cough, no? orthopnea, no? wheezing. Cardiovascular: no? chest pain, no? palpitations, no? edema. Ga (more content not included)...[facility]: Result Comment: Electronically Signed By: Jamison HAGAN, Aubrey De La Garza\.br\Date and Time Signed: 10/08/23 15:36 EDT\.br\Electronically Co-Signed By: Art GARCIA, Regi Alvarez\.br\Date and Time Co-Signed: 10/09/23 10:21 [id number] Evaluation note* Encounter Date Diagnosis Assessment Notes Treatment Notes Treatment Clinical Notes Oct, COPD, moderate (ICD-10 - J44.9) [facility] Other 06-05-2023 Evaluation note* Encounter Date Diagnosis Assessment Notes Treatment Notes Treatment Clinical Notes Oct, COPD, moderate (ICD-10 - J44.9) Discussed etiology, treatment, and prognosis of COPD. Discussed the chronicity and progressiveness of the disease itself. Suggested smoking cessation to improve outcome of COPD. Counseled on importance of using maintenance inhalers as prescribed even if patient has days of feeling well controlled. Patient has rescue inhaler as needed and is aware of symptoms necessitating and demonstrates appropriate use of inhalers. Discussed signs and symptoms of COPD exacerbation including fever, chills, cough, excessive sputum, shortness of breath etc. for which patient should seek immediate medical attention. Patient is aware of cardiopulmonary rehab services as well as palliative care if this should be needed. Oct, Tobacco dependence (ICD-10 - F17.200) pt smokes minimally - agrees to patch to help her quit completely. Oct, Essential hypertension (ICD-10 - I10) chronic stable - due for labs Oct, Hyponatremia (ICD-10 - E87.1) reviewed previous labs - recheck sodium Oct, Dyslipidemia (ICD-10 - E78.5) chronic - recheck labs. [place] [employer] Other 05-11-2022 History of Present illness Narrative* Andrea Alonso APRN.[employer] TEACHER - 09/21/2021 12:00 AM EDT [facility] NOTE NAME: NANCY ADAMSONLIZ NO.: [id number] DATE OF SERVICE: 09/21/[address] [facility] DATE OF : 1960 REASON FOR VISIT: The patient is a resident of [facility]. This is a discharge visit for multiple right-sided rib fractures with traumatic pneumothorax, subsequent encounter. The patient was sent from [facility] to [facility] for therapy services after patient had a fall due to dizziness, lightheadedness. The patient's stay at [facility] was without its event. The patient states she has no complaints of going home. States does have support of family and friends at home and has no concerns of going home. DATE OF ADMISSION: September 11, 2021. DATE OF DISCHARGE: September 21, 2021. HISTORY OF PRESENT ILLNESS FROM ADMISSION: The patient is a 61-year-old female who is admitted to us from [facility] with a diagnosis of recurrent syncopal falls, acute multiple right rib fractures with traumatic pneumothorax, possible acute L1 compression fracture, electrolyte imbalance with hyponatremia, hypertension, smoking history, iron deficiency anemia, chronic obstructive pulmonarydisease, generalized weakness and debility. She initially presented to the hospital after having multiple recurrent syncopal episodes. At times, she had associated lightheadedness and dizziness. She was unclear as to how long she may have been out with her spells. Evaluation in the hospital did reveal findings consistent with hyponatremia, which she apparently had in the past. She was also found to have multiple right rib fractures, as well as right traumatic pneumothorax. She did not require chest tube placement. There is questionable acute L1 compression fracture according to the patient. Her medications were adjusted, which may have contributed to recurrent syncopal falls. There is a question of possible alcohol involvement. She currently was admitted to drinking at least 1 Budweiser beer daily. Her condition was stabilized and she is now admitted to our facility for continued therapy prior to returning back to her apartment where she lives by herself. DISCHARGE DIAGNOSIS: Chronic obstructive pulmonary disease. MEDICATIONS: 1. Nifedipine ER at 30 mg 1 tab daily for hypertension. 2. Atorvastatin 80 mg 1 tab at bedtime for hyperlipidemia. 3. Miacalcin solution 200 units per actuation 1 spray in each nostril for chronic obstructive pulmonary disease. 4. Ipratropium - albuterol 0.5 - 2.5 mg per 3 mL, 1 dose 4 times a day for chronic obstructive pulmonary disease. 5. Metoprolol tartrate 25 mg 0.5 tab 2 times a day for hypertension. 6. Omeprazole delayed release 20 mg 1 tab daily for indigestion. 7. Pottasium chloride ER 10 mEq 1 tab 3 times day for hypokalemia. 8. Aspirin 81 mg 1 tab daily for heart health. 9. Lisinopril - hydrochlorothiazide 20 - 12.5 mg 1 tab daily for hypertension. 10. Singulair 10 mg 1 tab at bedtime for environmental allergies. 11. Plavix 75 mg 1 tab daily for coronary artery disease. 12. Sodium chloride 1 g, 2 g in the morning 1 g in the afternoon and evening x3 days and then return to 1 g 3 times a day daily for hyponatremia. The patient also has p.r.n. medications bisacodyl with Fleet enema, milk of magnesia, acetaminophen, nitroglycerin, and tramadol. LABORATORY DATA: Reviewed September 19, 2021. Chemistry: Abnormals, sodium 127, chloride 94. All other labs within normal range. Hematology: Abnormals, red blood cells 2.79, hemoglobin 9.0, hematocrit 28.0, MCV 100.3, platelets 532. Basophil 2.9. Macrocytosis 1 plus. All other labs within normal range. SUBJECTIVE DATA: Upon entering the room, found patient calm, alert, sitting in chair. The patient does not appear to be in distress or discomfort. The patient states has had no dizziness or syncopal episodes since being admitted to [facility]. The patient states does have a cough and shortness of breath with prolonged activity. Denies shortness of breath at rest. The patient states cough is productive of clear expectorant and has had this cough prior to her fall. The patient states no fever, chills, or nausea. The patient states no pain at this time. States appetite is good and bowels have been moving. States has been drinking fluids. Denies urinary symptoms. OBJECTIVE DATA: Temp 97.5, blood pressure 115/58, pulse 91, respirations 18, pulse ox 96% on room air and weight 165 pounds. Respirations are easy and unlabored with patient at rest. Lung sounds are clear. Heart rate and rhythm regular. Abdomen is soft, nontender with palpation. Bowel sounds present x4. Extremities are nonedematous. Psych: The patient is calm, alert, and pleasant in conversation.The patient is cooperative with examination. The patient is alert and oriented x3. IMPRESSION AND PLAN: 1. Chronic obstructive pulmonary disease. Continue with Miacalcin solution, ipratropium - albuterol, Singulair. Respiratory status is stable at this time. 2. Multiple rib fractures with traumatic pneumothorax. The patient will follow with primary care. The patient has no complaints of pain at this time with no shortness of breath. 3. Hypertension. Continue with nifedipine, metoprolol, lisinopril - hydrochlorothiazide. 4. Coronary artery disease without angina. Continue Plavix, lisinopril, metoprolol and nitroglycerin as needed. 5. Hypokalemia. Potassium 4.6. Potassium was decreased from 3 times a day to twice daily. The patient will have repeat laboratory work in 1 week with results sent to primary care physician. 6. Hyponatremia. Sodium chloride tab was increased for a few days due to slightly decreased sodium level of 127 and we will return back to the 1 tab 3 times a day. 7. Gastroesophageal reflux disease. Continue omeprazole. 8. Hyperlipidemia. Continue atorvastatin. The patient is stable at time of discharge. The patient will be discharged home with home health services, physical therapy, occupational therapy, current medications, current labs and current treatments when arrangements are made. The patientwill follow up with primary care physician in 7 to 10 days. The patient is authorized to be discharged home. Time spent doing discharge, greater than 31 minutes. DICTATED BY: ELSY Wallis/Levi JOB# [id number] cc:[facility] documented in [facility] encounterK[facility]05-06-2022 History of Present illness Narrative* Andrea Alonso APRN.CNS - 09/16/2021 12:00 AM EDT [facility] NOTE NAME: KRYSTLE ADAMSONELVER NO.: [id number] DATE OF SERVICE: 09/16/[address] [facility] DATE OF : 1960 REASON FOR VISIT: The patient is a resident of [facility]. This is a skilled visit for multiple rib fractures and other medical concerns. Upon entering the room I found the patient calm, alert, sitting in chair. The patient does not appear to be in distress or discomfort and appears to bein good spirits and smiling. The patient just returned from physical therapy. The patient states she has been working with physical therapy and does feel as though she is improved. The patient statesshe has been having a cough. Cough is productive of a yellow expectorant, but does not have shortness of breath or fever. The patient states she does have pain to the right chest wall region, but pain is being controlled with current medication regimen. The patient states has been eating and drinking. The patient denies bowel or bladder dysfunction. MEDICATIONS: Have been reviewed. EXAMINATION: Temperature 97.9, blood pressure 120/70, pulse 93, respirations 18, pulse ox 94% on room air, weight 166.2 pounds. Respiratory: Respirations are easy and unlabored with patient at rest. Lung sounds are clear and slightly diminished in bases. Heart: Heart rate and rhythm is regular. Abdomen: Soft, nontender with palpation. Bowel sounds present x4. Extremities: Nonedematous. IMPRESSION AND PLAN: 1. Multiple rib fractures, right side, subsequent encounter. Patient is currently on acetaminophen and tramadol. The patient is finding relief with the current medication regimen. The patient has been splinting herself with a pillow when she deep breaths or cough and has been using her DuoNeb and her flutter valve. 2. Traumatic pneumothorax, subsequent encounter. We will continue to monitor respiratory status closely. The patient is currently on Augmentin, end date September 18, 2021. 3. Chronic obstructive pulmonary disease, currently on DuoNeb. Again encouraged patient to use flutter valve. 4. Hypertension. The patient has good blood pressure control, continue antihypertensives. 5. Coronary artery disease without angina, currently on aspirin, lisinopril, Plavix, metoprolol, atorvastatin, no coronary concerns are identified at this visit. DICTATED BY: ELSY Wallis JOB# [id number] cc:[facility] documented in this encounterK[facility]05-04-2022 History of Present illness Narrative* Andrea Alonso APRN.CNS - 09/14/2021 12:00 AM EDT [facility] NOTE NAME: KANE ADAMSON.: [id number] DATE OF SERVICE: 09/14/[address] [facility] DATE OF : 1960 REASON FOR VISIT: The patient is a resident of [facility]. This is a skilled visit for syncopal episode with traumatic rib fractures and pneumothorax, subsequent encounter. Upon patient assessment, found patient sitting in wheelchair, working with therapy. The patient does not appear cynthia in distress or discomfort and appears to be in good spirits and smiling and joking with staff. The patient states that she does have pain to the right rib cage area, but patient states she is splinting her ribs with a pillow and using medications and is finding relief with the pain. The patient states she does have a slight cough. Cough is occasional, nonproductive. No shortness of breath. No fever, chills, or nausea. The patient states has been having syncopal episodes and recurrent episodes contributed to her injuries from fall at home. States she passes out and ends up waking up on the floor. The patient states has had no syncopal episodes since being at [facility]. The patient states nonausea, and has been eating well. Bowels have been moving. States has been drinking fluids. Denies urinary symptoms. MEDICATIONS: Have been reviewed. EXAMINATION: Temp 97.4, blood pressure 133/77, pulse 90, respirations 20, pulse ox 90% on room air,weight 166.4 pounds. Respiratory: Respirations are easy and unlabored with patient at rest. Lung sounds clear, diminished in bilateral lower lobes. Heart: Heart rate and rhythm is regular. Abdomen: Soft, nontender to palpation. Bowel sounds present x4. IMPRESSION AND PLAN: 1. Syncopal episodes. The patient is working with physical therapy. The patient has had no syncopalepisodes since being at [facility]. The patient is currently under fall precautions. Continue to monitor closely. 2. Multiple rib fractures with pneumothorax, subsequent encounter, respiratory status appears to bestable at this time. The patient is using incentive spirometer. Educated the patient on the importance of using incentive spirometer to help reduce the chance of pneumonia. 3. Chronic obstructive pulmonary disease, currently on Augmentin, does take Miacalcin, DuoNeb. 4. Abnormal electrolytes with hyponatremia. The patient has pending labs today. 5. Hypertension. The patient has good blood pressure control. Continue antihypertensives. 6. Coronary artery disease without angina. The patient has no coronary concerns at this time. Currently on Plavix, lisinopril, aspirin, metoprolol, nitroglycerin p.r.n., and atorvastatin. DICTATED BY: ELSY Wallis/Levi JOB# [id number] cc:[facility] documented in this encounterK[facility]05-02-2022 History of Present illness Narrative* Dorenei Kisha Amilcar - 09/12/2021 12:00 AM EDT [facility] NOTE NAME: CAIN ADAMSONYOLANDA NO.: [id number] DATE OF SERVICE: 09/12/[address] [facility] DATE OF : 1960 NEW PATIENT HISTORY AND PHYSICAL HISTORY OF PRESENT ILLNESS: The patient is a 61-year-old female who was admitted to us from [facility] with the diagnoses of recurrent syncopal falls, acute multiple right rib fractures with traumatic pneumothorax, possible acute L1 compression fracture, electrolytes imbalance with hyponatremia, hypertension, smoking history, iron deficiency anemia, COPD, generalized weakness and debility.She initially presented to the hospital after having multiple recurrent syncopal episodes. At times, she had associated lightheadedness, dizziness. She is unclear as to how long she may have been outwith her spells. Evaluation in the hospital did reveal findings consistent with hyponatremia which she apparently has had in the past. She also was found to have multiple right rib fractures as well as a right traumatic pneumothorax. She did not require placement of a chest tube. There is also questionable possible acute L1 compression fracture. According to the patient, her medications were adjusted which may have been contributing to her recurrent syncopal falls. There is also question of possible alcohol involvement. She currently was admitting to drinking at least one Budweiser beer daily. Her condition was stabilized and she is now admitted to our facility for continued therapy prior to returning back to her apartment where she lives by herself. REVIEW OF SYSTEMS: She is currently sitting up in her room. She is alert and responsive. She does complain of right-sided chest pain related to deep inspiration as well as any type of movement. This pain is related to her acute multiple rib fractures secondary to her falls. She has had no change inher vision or hearing. She claims was just recently diagnosed with asthma/COPD. She does not use home oxygen therapy. She does state that she has a little bit winded recently especially with exertion. She is not aware of any recent pneumonias. She claims to have stopped smoking 3 weeks ago. No COVID infections. She is vaccinated. She claims to have had previous myocardial infarction and is statuspost coronary stent placement. No recent chest pain or angina, palpitations, or pacemakers. No history of congestive heart failure. She does have hypertension. Her appetite has been good. No bleedingulcers, hepatitis or melena. No prior strokes or seizures, diabetes mellitus, bleeding problems or b lood clots. She is unaware of any thyroid problems. FAMILY HISTORY: Significant for hypertension. SOCIAL/FUNCTIONAL HISTORY: She claims to have stopped smoking 3 weeks ago. Prior to that, she states that 2 packs would last for a week. She denied any history of alcohol abuse though she does admit to drinking at family gatherings and birthdays. Hospital records indicate that she has Budweiser beer daily. She has been living in an apartment by herself. MEDICATIONS: Atorvastatin 80 mg at nighttime for hyperlipidemia, aspirin 81 mg daily, Augmentin 875mg b.i.d. for 7 days, albuterol/Atrovent aerosol treatments 4 times a day and p.r.n., lisinopril/hydrochlorothiazide 20/12.5 mg daily, metoprolol tartrate 25 mg half a tablet b.i.d., Miacalcin nasal spray daily, Singulair 10 mg daily, nifedipine ER 30 mg daily, omeprazole 40 mg daily, potassium chloride 10 mEq t.i.d., sodium chloride tablets t.i.d. along with tramadol 50 mg q.4 hours. ALLERGIES: No known drug allergies. PHYSICAL EXAMINATION: She is currently afebrile. Her vital signs are stable. She is in no distress.She does appear chronically ill. HEENT: Extraocular movements intact, sclerae nonicteric. Ears intact. Lungs: With somewhat decreased breath sounds at the bases, but otherwise fairly clear. Fair air movement. Heart: Regular. Abdomen: Soft, nontender. Bowel sounds present. Extremities: No pedal edema. No calf tenderness or palpable cords. No ischemia or cyanosis. She does have tenderness to palpation along her right anterolateral chest wall. IMPRESSION: 1. Acute/recurrent syncopal falls of unclear etiology - fall precautions are present. She has been receiving physical therapy for gait training. The patient claims that her medications were contributing to her falls and that they have been adjusted in the hospital and that she is feeling better. 2. Multiple right rib fractures as well as traumatic pneumothorax secondary to her falls - she doeshave underlying chronic obstructive pulmonary disease with smoking history. We will need to monitorher respiratory status closely. We will encourage incentive spirometry while awake. She is at high risk for developing pneumonia. 3. Electrolytes imbalance with hyponatremia - possibly chronic. She is on sodium chloride tablets. We will obtain follow up BMP, monitor her electrolytes and sodium level closely. She may require fluid restriction. 4. Hypertension - monitor blood pressure closely and make adjustments as needed. 5. Coronary artery disease with remote myocardial infarction and previous coronary percutaneous coronary intervention - continue to monitor cardiac status closely. 6. Functional assessment - she does have generalized weakness. She will be receiving rehabilitationservices for overall strengthening and conditioning. Overall, condition and prognosis is quite guarded. We will obtain follow up labs including CBC and BMP. She will be returning back to her home upon completion of therapy. DICTATED BY: MD PEYTON Ag/Levi JOB# [id number] cc:[facility] documented in this encounterK[facility]04-25-2022 NotePROCEDURE: XR KNEE RT 4V or > COMPARISON: None. HISTORY: MUSCLE WEAKNESS (GENERALIZED) FINDINGS: BONES:No acute fracture or dislocation. Moderate to severe tricompartmental osteoarthropathy with extensive marginal osteophyte formation. Severe narrowing of the medial joint space. SOFT TISSUES:Negative. No visible soft tissue swelling. EFFUSION:Moderate joint effusion OTHER: Negative. IMPRESSION: Severe osteoarthritis with joint effusion Electronically authenticated by: PAWAN GEORGE Date: 2021-09-05 13:50[id number] Evaluation note* Diagnosis Onset Date Resolution Status Essential (primary) hypertension March 04, 2018 acute [facility] Work Phone: Evaluation + Plan note Future Appointments Appointment Date:11/30/2021 08:15:00 AM Scheduled Provider:Mariah HERNANDEZ MD Location:[facility] App[facility] Future Appointments Appointment Date:01/04/2022 12:50:00 PM Scheduled Provider: Location:[facility] Surgical Services Appointment Type:Surgery FT Future Scheduled Tests Laboratory* Hepatic Function Panel 11/30/21 [facility] Evaluation noteNo InformationNort [employer] Other Evaluation noteNo assessment information available [facility] Work Phone: Hisvolr general Narrative - Reported* Type Description Date Medical History COPD Medical History CAD/SC Medical History HYPONATREMIA Medical History HTN Medical History OA Medical History HEART ATTACK Surgical History RIGHT KNEE ATHROSCOPIC SURGERY Surgical History CARDIAC STENT 02/2017 Hospitalization History SEE ABOVE Hospitalization History ABNORMAL ELECTOLYTES 12/13 018 [facility] Hospital course Narrative No data available for this section [facility] No data available for this section [facility] No data available for this section [facility] Summary Purpose Family History Relationship Condition Age at Onset Recorded Date/T jannette brother Diabetes mellitus Unknown Hypertension Unknown daughter Crohn's disease Unknown father Unknown family member Unknown Not Specified Unknown Heart disease Unknown Relationship Condition Age at Onset Recorded Date/T jannette brother Diabetes mellitus Unknown Hypertension Unknown daughter Crohn's disease Unknown father Unknown family member Unknown mother Unknown Heart disease Unknown Advance Directives Advance Directive Response Recorded Date/ Time Advance Directives No May 29, 2018 12:40pm Advance Directive Response Recorded Date/ Time Advance Directives No June 03, 2024 1:54pm Chief Complaint and Reason for Visit Chief Complaint Amb Documentation Medication check Reason for Visit Essential (primary) hypertension Chief Complaint med refills, stomach issues, wt loss Chief Complaint Admit Date CC Adult Risk Stratification February 1:54pm Med f/u April 07, 2024 10:29am Amb Documentation April 14, 2024 1 1:24am ER f/u stitches removed April 21 10:39am difficulty breathing June 05, 2024 10:05am Reason for Visit Admit Date COPD (chronic obstructive pulmonary dise ase) April 07, 2024 10:29am Essential (primary) hypertension Novembe r 2023 10:29am Hip fracture, right April 07, 2024 10:29am Smoker April 07, 2024 10:29am History of falling April 21, 2024 1 0:39am Smoker April 21, 2024 1 0:39am Visit for suture removal April 21, 10:39am COPD (chronic obstructive pulmonary dise ase) June 05, 2024 10:05am Additional Source Comments INFORMATION SOURCE (unrecogn ized section and content) DATE CREATED AUTHOR 11/06/2017 [facility] DATE CREATED AUTHOR AUTHOR'S ORGANIZ ATION 07/27/2018 [facility] DATE CREATED AUTHOR AUTHOR'S ORGANIZ ATION 08/22/2022 [facility] DATE CREATED AUTHOR AUTHOR'S ORGANIZ ATION 10/08/2023 Pineda Mike [facility] DATE CREATED AUTHOR AUTHOR'S ORGANIZ ATION 10/09/2023 Pineda Mike [facility] DATE CREATED AUTHOR AUTHOR'S ORGANIZ ATION 10/10/2023 Pineda Socorro [facility] DATE CREATED AUTHOR AUTHOR'S ORGANIZ ATION 10/11/2023 Pineda Mike [facility] DATE CREATED AUTHOR AUTHOR'S ORGANIZ ATION 10/12/2023 Pineda Socorro [facility] DATE CREATED AUTHOR AUTHOR'S ORGANIZ ATION 10/14/2023 Pineda Mike [facility] DATE CREATED AUTHOR AUTHOR'S ORGANIZ ATION 10/16/2023 Pined[facility] DATE CREATED AUTHOR AUTHOR'S ORGANIZ ATION 10/31/2023 Pineda Mike [facility] DATE CREATED AUTHOR AUTHOR'S ORGANIZ ATION 11/12/2023 [facility] DATE CREATED AUTHOR AUTHOR'S ORGANIZ ATION 12/01/2023 [facility] EPIC Source Comments (unrecognize d section and content) In the event this informatio n is protected by the Federal Confidentiality of Alcohol and Drug Abuse Patient Records regulations: The Federal rules restrict any use of the information to criminally investigate or prosecute any alcohol or drug abuse patient.[facility] SpringfieldIn the event this information is protected by the Federal Confidentiality of Alcohol and Drug Abuse Patient Records regulations: The Federal rules restrict any use of the information to criminally investigate or prosecute any alcohol or drug abuse patient.[facility]In the event this information is protected by the Federal Confidentiality of Alcohol and Drug Abuse Patient Records regulations: The Federal rules restrict any use of the information to criminally investigate or prosecute any alcohol or drug abuse patient.[facility] the event this information is protected by the Federal Confidentiality of Alcohol and Drug Abuse Patient Records regulations: The Federal rules restrict any use of the information to criminally investigate or prosecute any alcohol or drug abuse patient.[facility]In the event this information is protected by the Federal Confidentiality of Alcohol and Drug Abuse Patient Records regulations: The Federal rules restrict any use of the information to criminally investigate or prosecute any alcohol or drug abuse patient.[facility] the event this information is protected by the Federal Confidentiality of Alcohol and Drug Abuse Patient Records regulations: The Federal rules restrict any use of the information to criminally investigate or prosecute any alcohol or drug abuse patient.[facility] the event this information is protected by the Federal Confidentiality of Alcohol and Drug Abuse Patient Records regulations: The Federal rules restrict any use of the information to criminally investigate or prosecute any alcohol or drug abuse patient.[facility] the event this information is protected by the Federal Confidentiality of Alcohol and Drug Abuse Patient Records regulations: The Federal rules restrict any use of the information to criminally investigate or prosecute any alcohol or drug abuse patient.[facility] the event this information is protected by the Federal Confidentiality of Alcohol and Drug Abuse Patient Records regulations: The Federal rules restrict any use of the information to criminally investigate or prosecute any alcohol or drug abuse patient.[facility]In the event this information is protected by the Federal Confidentiality of Alcohol and Drug Abuse Patient Records regulations: The Federal rules restrict any use of the information to criminally investigate or prosecute any alcohol or drug abuse patient.[facility] SpringfieldIn the event this information is protected by the Federal Confidentiality of Alcohol and Drug Abuse Patient Records regulations: The Federal rules restrict any use of the information to criminally investigate or prosecute any alcohol or drug abuse patient.[facility] Care Teams (unrecognized sec tion and content) Team Status: Active Member Role Status Dates Ximena Astudillo MD Primary Care Provider Active Team Status: Active Member Role Status Dates Ximena Astudillo MD Primary Care Provide r, Attending Provider Active Start: March 12, 2024 Team Status: Inactive Member Role Status Dates Ximena Astudillo MD Primary Care Provide r, Attending Provider Active Start: April 07, 2024 End: April 07, 2024 Team Status: Active Member Role Status Dates Ximena Astudillo MD Primary Care Provider Active Start: April 14, 2024 Elise Correia CMA Attending Provider Active Start: April 14, 2024 Team Status: Inactive Member Role Status Dates Ximena Astudillo MD Primary Care Provide r, Attending Provider Active Start: April 21, 2024 End: April 21, 2024 Team Status: Inactive Member Role Status Dates Ximena Astudillo MD Primary Care Provide r, Attending Provider Active Start: June 05, 2024 End: June 05, 2024 Team Status: Active Member Role Status Dates Ximena Astudillo MD Primary Care Provider Active Team Status: Inactive Member Role Status Dates Ximena Astudillo MD Primary Care Provide r, Attending Provider Active Start: January 29, 2024 End: January 29, 2024 Sharepoint Application Architect Relationship Specialty Start Date End Date Judy Baltazar [address] [place] [address] PCP - General Nephrology 07/18/18 Ximena Astudillo MD [address] [place] [id number] [facility] 09/09/18 Team Status: Active Member Role Status Dates Ximena Astudillo MD Primary Care Provider Active Start: August 08, 2023 AUDRA Feliz Attending Provider Active Start : August 08, 2023 Team Status: Inactive Member Role Status Dates Ximena Astudillo MD Primary Care Provide r, Attending Provider Active Start: September 10, 2023 End: September 10, 2023 Sharepoint Application Architect Relationship Specialty Start Date End Date Judy Baltazar MD [address] [place] [address] PCP - General Nephrology 07/18/18 Ximena Astudillo MD [address] [place] [address] Referring Family Medicine 09/09/18 Sharepoint Application Architect Relationship Specialty Start Date End Date Judy Baltazar MD [address] [place] [address] PCP - General Nephrology 07/18/18 Ximena Astudillo MD [address] [place] [id number] Referring Family Medicine 09/09/18 Team Status: Active Member Role Status Dates Ximena Astudillo MD Primary Care Provide r, Attending Provider Active Start: March 12, 2024 Team Status: Inactive Member Role Status Dates Ximena Astudillo MD Primary Care Provide r, Attending Provider Active Start: April 07, 2024 End: April 07, 2024 Team Status: Active Member Role Status Dates Ximena Astudillo MD Primary Care Provider Active Start: April 14, 2024 Elise Correia CMA Attending Provider Active Start: April 14, 2024 Team Status: Inactive Member Role Status Dates Ximena Astudillo MD Primary Care Provide r, Attending Provider Active Start: April 21, 2024 End: April 21, 2024 Team Status: Inactive Member Role Status Dates Ximena Astudillo MD Primary Care Provide r, Attending Provider Active Start: June 05, 2024 End: June 05, 2024 REASON FOR VISIT (unrecogniz ed section and content) refillsinhalerprescriptions, COPD issues Goals (unrecognized section and content) Goals may be documented in a n alternate section FOR RECORDS PERTAINING TO PATIENTS WHO ARE OR HAVE BEEN ENROLLED IN A CHEMICAL DEPENDENCY/SUBSTANCEABUSE PROGRAM, SOME INFORMATION MAY BE OMITTED. This clinical summary was aggregated from multiple sources. Caution should be exercised in using it in the provision of clinical care. This summary normalizes information from multiple sources, and as a consequence, information in this document may materially change the coding, format and clinical context of patient data. In addition, data may be omitted in some cases. CLINICAL DECISIONS SHOULD BE BASED ON THE PRIMARY CLINICAL RECORDS. [facility]. provides no warranty or guarantee of the accuracy or completeness of information in this document.
--- NOTE | 2024-06-24 21:57 | ECG_ITS ---
The 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
--- NOTE | 2024-06-24 21:59 | XR_ITS ---
The [address] [address] Patient Name: LAURA ADAMSON MRN: [id number] date: 1960 Sex: F Assigned Patient Location: ER Current Patient Location: ER Accession/Order Number: [id number] Exam Date: 06/24/2024 22:16 Report Date: 06/24/2024 22:45 At the request of: JULIAN OLMOS Procedure: XR chest 1V Exam: Radiographs: XR chest 1V Reason for exam: fall Comparison: Chest x-ray dated 06/05/2024 XR/XR chest 1V IMPRESSION: Multiple old right rib fractures. Old right clavicle fracture. Chest is otherwise unremarkable. Electronically authenticated by: PADDY GARCIA Date: 06/24/2024 22:45
--- NOTE | 2024-06-24 21:59 | CT_ITS ---
The [address] [address] Patient Name: LAURA ADAMSON MRN: [id number] date: 1960 Sex: F Assigned Patient Location: ER Current Patient Location: ER Accession/Order Number: [id number] Exam Date: 06/24/2024 22:16 Report Date: 06/24/2024 22:40 At the request of: JULIAN OLMOS Procedure: CT head/brain wo con EXAM: CT head/brain wo con INDICATION: 64 years old; Female. Closed head trauma status post fall. TECHNIQUE: CT Head (ax/cor/sag reformats). Ionizing radiation dose reduced via iterative reconstruction/FBP blend and body size kV/mA adjustment. Comparison: Head CT dated 04/11/2024. FINDINGS: POSTOPERATIVE CHANGES: None. BRAIN PARENCHYMA: No intraparenchymal or extra-axial hemorrhage. No mass effect. No midline shift or herniation. Patchy low-density is seen in the periventricular white matter without mass effect. VENTRICLES/EXTRA-AXIAL SPACES: Normal for patient's age. SINUSES/MASTOIDS: The visualized sinuses are clear although the maxillary sinuses are not completely included in the examination. Mastoids and middle ears are clear. MSK: No displaced or depressed calvarial fracture. OTHER: No hyperdense intraluminal thrombus. Vascular calcifications are present. CT/CT head/brain wo con IMPRESSION: 1. No acute intracranial abnormality. No hemorrhage or mass effect. 2. Nonspecific white matter changes. 3. Vascular calcification. Electronically authenticated by: CHANA MICHEL Date: 06/24/2024 22:40
--- NOTE | 2024-06-24 22:01 | ED_ITS ---
HPI HPI - General Adult General Chief complaint: Fall Stated complaint: fall Time Seen by Provider: 06/24/24 21:50 Source: patient Mode of arrival: ambulance Limitations: no limitations History of Present Illness HPI narrative: 64-year-old female presents for evaluation following a fall. She has been drinking today, she drinks every day, and she apparently went to get up from her chair and she fell and went to the floor. She sustained skin tears to her right arm but no other injuries. She states her head only hurts a little bit but she did not hit her head. No neck pain or chest pain or shortness of breath or abdominal pain. It is not clear how long she was laying on the floor. Related Data Home Medications ?Medication ?Instructions ?Recorded ?Confirmed albuterol sulfate 90 mcg/actuation 2 puff inhalation Q6H PRN 06/24/24 06/24/24 aerosol inhaler shortness of breath or wheezing aspirin 81 mg tablet,delayed 81 mg PO DAILY 06/24/24 06/24/24 release budesonide-formoterol HFA 160 2 puff inhalation Q12H 06/24/24 06/24/24 mcg-4.5 mcg/actuation aerosol inhaler (Symbicort) clopidogrel 75 mg tablet 75 mg PO DAILY 06/24/24 06/24/24 metoprolol succinate 25 mg 25 mg PO DAILY 06/24/24 06/24/24 tablet,extended release 24 hr nifedipine 30 mg tablet,extended 30 mg PO DAILY 06/24/24 06/24/24 release 24 hr potassium chloride 10 mEq 10 meq PO DAILY 06/24/24 06/24/24 tablet,extended release Allergies Allergy/AdvReac Type Severity Reaction Status Date / Time No Known Drug Allergies Allergy Verified 06/24/24 21:48 Opioid HPI Opioid Management Most Recent Opioid Data: No Data to Display Review of Systems ROS Narrative A ten point review of systems is negative except as noted above. PFSH PFSH Social History Little interest or pleasure in doing things: not at all Feeling down, depressed, or hopeless: not at all Exam Narrative Exam Narrative: Nurses note and vital signs reviewed and patient is not hypoxic. General: The patient appears in no apparent distress. Patient is resting comfortably on cart. Skin: Warm, dry, no pallor noted. There is no rash noted. Head: Normocephalic, atraumatic, cervical spine nontender Eye: Normal conjunctiva, no drainage Ears, Nose, Mouth, and Throat: oral mucosa is moist. Nares patent. Cardiovascular: Regular Rate and Rhythm, not tachycardic Respiratory: Patient is in no distress, no accessory muscle use, lungs are clear to auscultation, no wheezing, rales or rhonchi. Chest wall not tender Back: non-tender GI: Soft and nontender Musculoskeletal: The patient has no evidence of calf tenderness, no pitting edema, symmetrical pulses noted bilaterally. She has skin tears present on the right forearm proximally. Right wrist, elbow, and shoulder have full range of motion Neurological: Awake and alert. She knows the month and where she is and why she is here and her name but she told me that it is 1994. Psychiatric: Cooperative Constitutional Vital Signs, click to edit/add: Last Vital Signs Temp 98.4 F 06/24/24 21:48 Pulse 75 06/24/24 23:30 Resp 22 H 06/24/24 23:30 BP 137/69 06/24/24 23:00 Pulse Ox 99 06/24/24 23:30 O2 Del Method Room Air 06/24/24 21:48 Course Vital Signs Vital signs: Vital Signs Temperature 98.4 F 06/24/24 21:48 Pulse Rate 82 06/24/24 21:48 Respiratory Rate 20 06/24/24 21:48 Blood Pressure 117/58 06/24/24 21:48 Pulse Oximetry 100 06/24/24 21:48 Oxygen Delivery Method Room Air 06/24/24 21:48 Temperature 98.4 F 06/24/24 21:48 Pulse Rate 75 06/24/24 23:30 Respiratory Rate 22 H 06/24/24 23:30 Blood Pressure 137/69 06/24/24 23:00 Pulse Oximetry 99 06/24/24 23:30 Oxygen Delivery Method Room Air 06/24/24 21:48 Medical Decision Making MDM Narrative Medical decision making narrative: She is anemic with a hemoglobin of 7.7 and heme-negative stool. Alcohol level is 217. Skin tear was dressed and tetanus status was updated. She is unable to get up and walk and she will be admitted for observation. Treatment diagnosis and disposition were discussed with the patient. Differential Diagnosis Differential Diagnosis: Dehydration, anemia, GI bleed Lab Data Lab results reviewed: Yes I reviewed the patient's lab results Labs: Lab Results 06/24/24 06/24/24 Range/Units 22:10 23:34 WBC 7.6 (4.0-11.0) 10^3/uL RBC 2.49 L (4.20-5.40) 10^6/uL Hgb 7.7 L (12.0-16.0) g/dL Hct 24.0 L (36.0-48.0) % MCV 96.4 (81.0-99.0) fL MCH 30.9 (26.7-34.0) pg MCHC 32.1 (29.9-35.2) g/dL RDW 14.6 (11.0-15.0) % Plt Count 273 (150-450) 10^3/uL MPV 9.1 L (9.5-13.5) fL Neut % (Auto) 66.6 (43.0-75.0) % Lymph % (Auto) 17.5 L (20.5-60.0) % [place] % (Auto) 10.2 (1.7-12.0) % Eos % (Auto) 4.5 (0.9-7.0) % Baso % (Auto) 0.9 (0.2-2.0) % Neut # (Auto) 5.0 (1.4-6.5) 10^3/uL Lymph # (Auto) 1.3 (1.2-3.8) 10^3/uL [place] # (Auto) 0.8 (0.3-0.8) 10^3/uL Eos # (Auto) 0.3 (0.0-0.7) 10^3/uL Baso # (Auto) 0.1 (0.0-0.1) 10^3/uL Abs Immat Gran (auto) 0.02 (0.00-0.03) 10^3/uL Imm/Tot Granulo (auto) 0.3 (0.0-0.5) % Sodium 127 L (136-145) mmol/L Potassium 4.3 (3.5-5.1) mmol/L Chloride 94 L (98-107) mmol/L Carbon Dioxide 23.8 (21.0-32.0) mmol/L Anion Gap 13.5 BUN 3.0 L (7.0-18.0) mg/dL Creatinine 0.59 (0.55-1.02) mg/dL Est GFR ( Amer) >60 (>=60 mL/min/1.73m^2) Est GFR (Non-Af Amer) >60 (>=60 mL/min/1.73m^2) BUN/Creatinine Ratio 5.1 Glucose 94 (74-106) mg/dL Calcium 7.9 L (8.5-10.1) mg/dL Total Bilirubin 0.3 (0.2-1.0) mg/dL Direct Bilirubin 0.1 (0.0-0.2) mg/dL AST 60 H (15-37) U/L ALT 39 (14-59) U/L Alkaline Phosphatase 221 H (46-116) U/L Total Creatine Kinase 30 (26-192) U/L Myoglobin 81 (9-82) ng/mL Troponin I High Sens 7.1 (4.0-51.3) pg/mL Total Protein 5.9 L (6.4-8.2) g/dL Albumin 2.1 L (3.4-5.0) g/dL Globulin 3.8 g/dL Albumin/Globulin Ratio 0.6 Stool Occult Blood Negative Ethanol Quant 217 mg/dL Imaging Data Chest x-ray: Radiologist's impression: ITS Impressions Chest X-Ray 06/24/24 21:59 IMPRESSION: Multiple old right rib fractures. Old right clavicle fracture. Chest is otherwise unremarkable. Electronically authenticated by: PADDY GARCIA Date: 06/24/2024 22:[address] 06/24/24 21:59 IMPRESSION: 1. No acute intracranial abnormality. No hemorrhage or mass effect. 2. Nonspecific white matter changes. 3. Vascular calcification. Electronically authenticated by: CAHNA MICHEL Date: 06/24/2024 22:40 ECG Data Attestation: I personally reviewed and interpreted this ECG as follows: (EKG on my interpretation shows sinus rhythm with artifact and a rate of 79) Discharge Plan Discharge Chief Complaint: Fall Clinical Impression: Fall, Skin tear, Alcohol intoxication, Anemia Patient Disposition: Admitted as Observation Time of Disposition Decision: 00:03 Condition: Fair
[2024-06-24 22:21] LABS: Basophils Absolute Auto 0.1 10^3/uL (0.0-0.1); Basophils Percent Auto 0.9 % (0.2-2.0); Eosinophils Absolute Auto 0.3 10^3/uL (0.0-0.7); Eosinophils Percent Auto 4.5 % (0.9-7.0); Hemoglobin 7.7 g/dL (12.0-16.0); Immature Granulocytes Abs Auto 0.02 10^3/uL (0.00-0.03); Immature Granulocytes Pct Auto 0.3 % (0.0-0.5); Lymphocytes Absolute Auto 1.3 10^3/uL (1.2-3.8); Lymphocytes Percent Auto 17.5 % (20.5-60.0); Mean Corpuscular HGB Conc 32.1 g/dL (29.9-35.2); Mean Corpuscular Hemoglobin 30.9 pg (26.7-34.0); Mean Corpuscular Volume 96.4 fL (81.0-99.0); Mean Platelet Volume 9.1 fL (9.5-13.5); Monocytes Absolute Auto 0.8 10^3/uL (0.3-0.8); Monocytes Percent Auto 10.2 % (1.7-12.0); Neutrophils Percent Auto 66.6 % (43.0-75.0); Platelet Count 273 10^3/uL (150-450); Red Blood Count 2.49 10^6/uL (4.20-5.40); Red Cell Distribution Width 14.6 % (11.0-15.0); White Blood Count 7.6 10^3/uL (4.0-11.0)
[2024-06-24 22:38] LABS: Anion Gap 13.5; BUN Creatinine Ratio 5.1; Calcium 7.9 mg/dL (8.5-10.1); Carbon Dioxide 23.8 mmol/L (21.0-32.0); Chloride 94 mmol/L (98-107); Estimated GFR (African America >60 (>=60 mL/min/1.73m^2); Estimated GFR (Non-African Ame >60 (>=60 mL/min/1.73m^2); Glucose 94 mg/dL (74-106); Potassium 4.3 mmol/L (3.5-5.1); Sodium 127 mmol/L (136-145)
[2024-06-24] MEDS: 0.9 % SODIUM CHLORIDE 1,000 ML 125 ML IV (22:38)
[2024-06-24 22:41] LABS: Alanine Aminotransferase 39 U/L (14-59); Alkaline Phosphatase 221 U/L (46-116); Aspartate Amino Transferase 60 U/L (15-37); Bilirubin Total 0.3 mg/dL (0.2-1.0)
[2024-06-24 22:42] LABS: Albumin Globulin Ratio 0.6; Albumin Level 2.1 g/dL (3.4-5.0); Globulin 3.8 g/dL; Total Protein 5.9 g/dL (6.4-8.2)
[2024-06-24 22:46] LABS: Bilirubin Direct 0.1 mg/dL (0.0-0.2); Creatine Kinase 30 U/L (26-192); Ethanol 217 mg/dL; Myoglobin 81 ng/mL (9-82); Troponin I High Sensitivity 7.1 pg/mL (4.0-51.3)
[2024-06-24 23:49] LABS: Internal Control Within Normal Limits; Occult Blood Negative
[2024-06-25] VITALS (39 sets, daily range): BP systolic 102–152; BP diastolic 52–79; PULSE 75–102; TEMP 36.3–37.2; O2SAT 77–102; BMI 22.1
[2024-06-25] MEDS: ALBUTEROL SULFATE 2.5 MG/3 ML VIAL NEB IH ×2 (00:03→04:07)
[2024-06-25] MEDS: BACITRACIN OINTMENT 28.4 GM TUBE 1 APPLIC TOPICAL (00:26)
[2024-06-25 00:34] LABS: INR 1.06; Prothrombin Time 11.2 sec (9.0-11.6)
[2024-06-25] MEDS: ADACEL DIPH,PERTUSS(ACELL),TET VAC/PF 0.5 ML ADULT SYRINGE IM (00:40)
--- OUTSIDE RECORDS SUMMARY | 2024-06-25 00:55 | XMS_ITS | CCD ---
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 Name Role Phone WANDA WHEELER Unavailable Unavailable WANDA WHEELER Yoanna Unavailable Unavailable JULIOCESARADDY CAPPS Unavailable Unavailable JULIOCESAR, ADDY Unavailable Unavailable [place] Unavailable Unavailable UNKNOWN, PROVIDER Unavailable Unavailable Ximena Astudillo Primary Care Unavailable Judy Baltazar Admitting Unavailable Judy Baltazar Attending Unavailable Judy Baltazar Primary Care Provider Ximena Astudillo MD Unavailable [phone] XIMENA ASTUDILLO Primary Care Physician DR XIMENA [...] Care Unavailable SARAH, DR MONET Attending Unavailable MARGIE, DR PAWAN Vazquez Consulting Unavailable SARAH, DR [...] DR BEBETO Cadena Consulting Unavailable NADERER, DR DAMARI Beard Consulting Unavailable PAY ., DR DOWNING [...] grover Baltazar MD, Judy Primary Care Provider [phone] Ximena Astudillo MD Unavailable CHANA LEMONS Referring [...] Propensity to adverse reactions 03-06 8 Comment:Done MOGL Other (1 source) Allergies Reconciled Propensity to adverse reactions Unknown MOGL Other Medications Current Medications Medication Drug Class(es) [...] Refills(s) 0 Start Date: 10/12/23 Status: Ordered [id number] 200 actuat albuterol 0.09 mg/actuat metered dose [...] Start: 10-12-2023 take 2 tablets by mo [facility] once as needed for constipation bisacodyl 5 [...] 2023 11:48am Start: 11-01-2021 Potassium Chlo ride (Tnf-Dfpb-Beu 10) mEq, Oral, BID, Refills(s) 0 Start [...] Twice daily June 05, 2024 12:00am sennosides, mcfp 8.6 mg oral tablet (1 source) Start: [...] Dates Sig (Normalized) Sig (Original) fluocinolone acetonide 0.77712 mg/mg topical ointment (8 sources) Corticosteroid Start: [...] Unstable angina; Translations: [Atherosclerotic heart disease of [place] coronary artery without angina pectoris] Onset: 02-12-2017 [...] 01-20-2010 Chronic Other aftercare (2 sources) 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 VJSPHvtz82XQc0dLd+PG hlYWQ+PE1F RLCbJ91prFDjwP3dC1VPDEbVWcsuGS EODNkRRlZwzqHnEK3ngQYjKLVg IC8+PO4sAUAnYkjmbCNmx2Z5tUB9Z3 7dsf2gTQwanXS4IBTrPuUhmmrvb2ug tTw2HBhdAmajHaEb BTAiqJ23JVL5hC48Mo40pIHhoMXot7 dbqJp8YpGiFDSfIHH9bExjMSaty2On IUMgZ79vbYPxu3A8 TKLglYeyeLXgWqLrrTX3aI9nUOjjmp dtw6xesyltNeg9hy37nCLhx2Q1nCV2 W9KciiA2GMUsnQTh WruagPFThC1hgsfac0esegfqHcJzWM EmHQy5ZJc6NUNtaVxjUjLpYO14JUI6 WRBmbeVjY0GbEGAe nLzeYmH6t1K0Ma5AX5LSXxvoK4PIGL FSWTwvdGQ+ET37jk15M1GxEnzzTuw2 UILqPTN3zBZ3uK7o NCNfAMdmz6W0zQP1Q4UkijOtbo8le0 niRVZaEBvqI44jcVGsp4H2LGUwiQS3 QSPayRbqPtLooN90 Oyc+APLmbVnis8PfUgrun9fot1ihxP h4GeokFXUkrhKkrWhiIPK0e0PnOf7g NIHyvPX0eYQ0bU7g BkHpRsJ8PWpxU025PpWlvIXxYbcfT7 0tJ4OwtRI+GPXhZpt5EDElaEypRP0r G4BlTLFsggitrHDc qEphYD3zLBRzcsyhUNXlrC7mEHOaY5 o2HrIhOtG0JBvmE0OwXVVvzgfhGc44 mD0jVePvQcS0ISgp K4AgjrG2XJBqfTPtOXmpHOE7J42ut9 L3QMBbZQNaPBV4qGT4zQ1xwLkafkpr bGVmdDsgdmVydGlj WGywZSjwT014MMQieYowOhEvSMxsCs BEYXRlOiAgMDYvMTkvMjAyNDwvdGQ+ DPMkKJD0cNbjDVSl qAYmEUljCf8gwFzhpEdzLZ8nRQTfbv llFVYcqW7lFVYorAIecHhaLX7tKPBu bzkxr396LsMhKUB1 AQDdwHLdC8SysE1pNdKbIHWxNCNmL5 KboLUvKOsbD066MByiUoO4STDflyXu Y2KmXARrvPceLuH3 b8U3As9Gq8VxrtytK3XeaAWqYoZzVd ukVJb2M5ZfSvfpeEX+UM29ACOcLX41 UWu8BAH0nPzmFZrp CZSvI5EplE6iBuUgBGReFPMvZej+PH RhYmxlIHdpZHRoPScxMDAlJyBzdHls JW2wJp0dNBXpXMIi lEujaXZfQnWpt7amYNHdEOqpXY2trB pnE7XfpJK6MMBjx0q5Ev82Y36nQ6Ka dXA+BYDsjCT9zTP3 dO6gDyHaDsU2PPoeB079XcIyyJNlGw pjt8rly8oprTk0EdU6OLKzurHswFkd TXG4w9OpBx59A46j ZOcoNBLfYLOmYBVzRKLcvWbkop6cuX 9wIi8+TSZcqLX9qOT3qF0fIwGtKoU5 MJufF697IyAfhNMo Rpgoc0rke6ecrWt2DcNuIEDakcRmnM hwZBZ7f8OeYe45L5GyqPuup1NxPtc3 dq29pHIbq2S7gFT9 D2WqMXMelbducCEylJwxFN8pGSElyt jhFMBabQ4gKIPaG0e3QlGdBqP7HVcw G3OwzcR1LKMorHRp PTLlvCNTwD7nfgotl5xbkqkfZzNvLB WlXOy4TGw2RJMfkOnyHwEsSGR1VaS4 WJE0iNIphQ3uvCla ertujT9iHlo+NDA4bAXmhJZPWQ4tLn wvdGQ+SBIxLPM0xXugVQugQSZrxY1u HVEtW9t2NsKvDsA1 OYldY4FlalK8RXQngYZtQMLlvDXRkZ 2jsolbj4nyrblyZhQoYYIjMQn3HKt2 LWFsaWduOiBsZWZ0 VdW1ZZE6sCBtaV3ojKdprwvlnZ8uNd c+MlnlvWgjDUO1GUz5H1MuTil3VPCu lDygSL8htCUhRRdk Vh0elQbpxKthJY5cPAPnokwww823Yj Mns1czFEPkkVJuHRwgKPO0I03ir3N8 VMBoVZPqOCL4bBT4 xU5alQksdrgajOBpzVjhdjEkcIgcHF sjHJeoA645WAUamHrbQaAyCSm7F2Ix Chj0WMOigGmpIU7u nHEqGKorUj5sxCtbxCbhGV3sXGJbna bgj071AfLvc2qbKPCcuDVbXSkhWIU8 W34xe1U6MIUmQASz FQO7qFI9qU3feMeuipshlGLinNixpp VaeZzaLNkcOLhzK591NTRckKarTzWd xXi3N8BgScs8OGZg qZxwTL8vnKOkBCkrSo6efRnteMbwOF 4uUPSrvwiww195ZfXaz1qwXWKoaMQn TMvkUPZ2B24kg2G8 OPRzNMYpCYI4dKQ3qZ4cjAywofimfS OkuHnixbXvnLkoQWifPQfdP081EKWf cDsnPlBhdGllbnQg ZTdaZRf5Q0WmCenxlAV+JA00FACnTW 00wZIheGSze0usiXv5FfIbRDBvWMY5 wYagGReyv6EdOUEh E85cxZXja8M2FRJqrFljzPAqIeQrbM X4oG6iFHaqhyjhp5lwmnhnGifrh8xw rj31pH32Z20iUGqf LIMuUFUcNDZnRCFpqPvvkn1dsI3vWv 8+FCFmzLU2bMO1oZ1nDAQrOmX7QNyh B645OoWolLYfHvsx e0ksz1qccTj7PrY1KBAfpwBprPmhJE K0h5FhVr50N62vGXvwSBDzAAPoMGGy VPVnuSwyam1lrI4b Ii8+FGQyzUC7lJX4kY4iAyKkDwB6TV zzH935ByZesDBlLzkhC54uM9GhiBC+ MWOsDrs3QUWhsUkx SM8fyJAdBEdkYs1dYTJ0HdAzQuUqVO snW2NuJMEdrzpdgnoakBC0UIKnHFIr fC99Zj0npQseUNSr dVCJyJ9bieghu8valqrtNnBjFWFjCU h8HXt7WFDpuAedPwNcXHF6LgG7ABP4 jVDocD5taSybxsfr rP9jJ6UdKCWqajavDk97eD2fTrHnDg D7RVgxQin+XAcYGcXESUHAROTAPX6K POS1Q9YdUux5WSCe yNevOV7qlZMaSLmgOv1kzEqcuCqlXP 2vOLQviqplBBZjaP6eFPWacHUixRqb LF0lJCQqhmyay750 WwXiJZW9PBNkgBYuP8AuwN8vVqTeLI HlUCDaE2MxoZOiBOdsM245FIxoDaW9 DLSsnfXqH5JyLWXv pLlzHjB2o4E8Fl2kUd7zAK2uMTR0AQ 76TJ68tPPzb8Q0iVP1C5QrCLQxacnm hzjiuHC8HVPxNCAl zP15mHDxIUfyWy9oc0O6h798MFQwZS HfgH55Kt8plBnlPNOeyESYzR5zowhp x1hhozshGuLmVGTd JOs9VNc2KGHvuLudNqUtJFJ9ZtH0LG B0yTCtcN4dtUenpyoqjF2gDyo+NjUg MXWxgaG2D8WuNyl0 NKRngHfdZH5maPYnAUbxTn8kaYbysF ahQA0iLRUlnkphFUJbwQ4lHAEpaAWv nRziEG9nFASalhdv d607YdRoUON7HHEeuTJrE2LdbK7iFr JnWUGxXDUcV0LocJIoNWdyK432HUwc ZaE7DRHsopLuP4Oz XMHmvFqfWuY8g4A2Ms6MXY5lgIS8M0 QhAhu9MFHzpMhgZP5bpVTwOMosYh5e zEaccLwpWD3qJTLs sxruNBDnhX5fAGBpuLSeeMczDY9nNQ Jfnbrxv651OyIhSBQ1BAFecAIhK6Qg cX0iWvYdJEQvYSEc M5QslZLgYZtpZ056UCvmJsD7TJHexh YeU6EzBMNkvBexVfM2c5I7Pm1NooHm yHuftsO7C9OyHtxr dHI+BH09TIZzPP69oHPliOPdw6urmB z5GqAqKRFyGGW1lIdzQHymz8XvEBNt Q25awOJcu5C2SDRy sVttvVYbKrTvbSD9lD3zFSrgkhmaz6 bovdwrLwdmp6vnar02kP73J89cMYii ZHRoPSIzMCUiIHZh zToslz2loY4dFu9+GHDeuXJ2hSR4mI 4lDaWnNjD0RXvjF343LuQeoSMpFupe a3qds2dwpNh7JpPr DDMdynZccDbaZQY1s3GnDx49M80tAB tlKWCoWKUnDHFtLYNtoXlelt0xfV7q Ii8+ZF6yk0okkr06 cP80tXR+ZQQsQSP8oQqlGEumQTGnlK 7nTFavFqV2IHMtIlGxdW77qPEtOGfc Ft3fzXhbkCawPN2c XKMfyuyhk964BnYsb5xxQHLekAKjCE ihVSM9O45st3U3JSYkIRPpIQL0bCB1 wY8swGwowkehpQLf zGfgxeGutOduTXmeVJtaB112WLAnhP trMwPxgCWfU2svatQGFW1eZugszNB+ FMFxHZR8yEgiLFyh DEJugK9nFSRpB0n9GgLhPxK8WXpmW2 IpoaA6SIXomPQwHDPrrNDTzH3ykmbh s9kgxecfFlVpLWHc IPe2ZVm3MYKjxMrdQdHmCEG4OtJ7SY H2eAEctZ3jhOyppwhgrV6pCic+RklO OjwvdGQ+PHRkIHN0 zUwsNNsuDWBrnF2rOWLxX0l6LmYwAl R3PRbjL6LgsvH5FGPfaCElRUSntBFW nB4rxzskg3hhabgr DkVuFFFbCHa2UBo2CIKueKjcSuQgOE O4TcA0GSP6cQAqdB2ljOeidutebL6b Oyc+TVJOOjwvdGQ+ NHKeEML6jLwqWHecAYCncZ4oFRZrX3 l0KvQcCoE1POuuS2SgxsR2TNVbqYZe TEJosLEJmG9suknh i8gwyiklTdCwLLRiWIr9YUl8VIUegZ nuIzEjNBM2PaC3PSG5uUNejP5cxNcn bgbliU3uCpk+UGF5 JZS4AG10DZ47W7LwBtrtsNXnkRV+PH RhYmxlIHdpZHRoPScxMDAlJyBzdHls RZ9lEw3fOYTwEALu bGxhcHNlOiBjb (more content not included)... [facility] Coding Queryon 10-30-2023 Coding Query - [...] SW-This SW responded to a consult on [address] [place] [address] regarding ETOH / Substance abuse. Patient stated [...] Caller Number: H Alcohol Dependence, continuous Unspecified [facility] Discharge Instructionson Discharge Instructions [id number]#1.00TIFF [facility] Medication Listson Medication Lists [id number]#1.00TIFF [facility] Physician Orderon 10-17-2023 Physician Order [id number]#1.00TIFF [facility] Transfer Documentson 024 Transfer Documents [id number]#1.00TIFF [facility] Transfer Documents [id number]#1.00TIFF [facility] Transfer Documents [id number]#1.00TIFF [facility] Progress Note-Physicianon Progress Note-Physician GENERAL INFORMATION [...] 4. Dehydration 5. UTI patient admitted to [facility] with orthopedics consult. Hospital Course: 10/08/2023: Presented to the ED s/p fall 4 days prior. found above injuries. Admitted to [facility] with orthopedics consult. 24 Hour Events: [...] Lymph Auto: 10.5 % Low (10/09/23 06:10:00) Redwood Auto: 9.3 % (10/09/23 06:10:00) Eos Auto: 0.9 % (10/09/23 06:10:00) Basophil Auto: 0.5 % (10/09/23 06:10:00) Neutro Absolute: 8.5 E9/L High (10/09/23 06:10:00) Lymph Absolute: 1.1 E9/L (10/09/23 06:10:00) [place] Absolute: 1 E9/L (10/09/23 06:10:00) Eos Absolute: [...] toilet, en (more content not included)... Normal [facility] Comment on above: Result Comment: Elec [...] 4. Dehydration 5. UTI patient admitted to [facility] with orthopedics consult. Hospital Course: 10/08/2023: Presented to the ED s/p fall 4 days prior. found above injuries. Admitted to [facility] with orthopedics consult. 10/09/2023: OR with [...] 18:07:21) Size: .062 (10/09/23 18:07:21) Size: 11MM [id number] DEGREE (10/09/23 18:07:21) Size: 10.5 X 100 [...] Lymph Auto: 7.2 % Low (10/10/23 05:04:00) Redwood Auto: 8.6 % (10/10/23 05:04:00) Eos Auto: 0.2 % (10/10/23 05:04:00) Basophil Auto: 0.3 % (10/10/23 05:04:00) Neutro Absolute: 11.7 E9/L High (10/10/23 05:04:00) Lymph Absolute: 1 E9/L (10/10/23 05:04:00) [place] Absolute: 1.2 E9/L High (10/10/23 05:04:00) Eos [...] plavi (more content not included)... Normal [facility] Comment on above: Result Comment: Elec tronically [...] 4. Dehydration 5. UTI patient admitted to [facility] with orthopedics consult. Subjective No acute [...] days prior. found above injuries. Admitted to [facility] with orthopedics consult. 10/09/2023: OR with [...] Lymph Auto: 13 % Low (10/11/23 05:05:00) Redwood Auto: 9.3 % (10/11/23 05:05:00) Eos Auto: 4.3 % (10/11/23 05:05:00) Basophil Auto: 0.3 % (10/11/23 05:05:00) Neutro Absolute: 7.3 E9/L (10/11/23 05:05:00) Lymph Absolute: 1.3 E9/L (10/11/23 05:05:00) [place]wood Absolute: 0.9 E9/L (10/11/23 05:05:00) Eos Absolute: [...] mg/dL High (10/11/23 08:05:00) POC Device SN: [id number] (10/11/23 08:05:00) POC User ID: [id number] (10/11/23 08:05:00) POC Username: JERED JIANG (10/11/23 [...] ETOH and (more content not included)... Normal [facility] Comment on above: Result Comment: Elec tronically Signed By: Mckenzie Lerma PA-C\.br\Date and Time Signed: 10/11/23 08:55 EDT\.br\Electronically Co-Signed By: Art GARCIA, Regi Alvarez\.br\Date and Time Co-Signed: 10/14/23 12:20 EDT CBC w/ Auto Diffon 4 Basophils/100 WBC (Bld) 0.3 % Normal 0.0-2.0 [facility] Comment on above: Performed By: #### 2 [id number] #### [facility] [address] [place] [address] Basophils/Leukocyte s Auto (Bld) [Pure # fraction] 0.0 E9/L Normal 0.0-0.2 [facility] Comment on above: Performed By: #### 2 [id number] #### [facility] [address] [place] [address] Eosinophils (Bld) [#/Vol] 0.3 E9/L Normal 0.0-0.5 [facility] Comment on above: Performed By: #### 2 [id number] #### [facility] [address] [place] [address] Eosinophils/100 WBC (Bld) 3.9 % Normal 0.0-8.0 [facility] Comment on above: Performed By: #### 2 [id number] #### [facility] [address] [place] [address] Erythrocyte distribution width (RBC) [Ratio] 13.6 % Normal 10.9-14.2 [facility] Comment on above: Performed By: #### 2 [id number] #### [facility] [address] [place] [address] Hematocrit (Bld) [Volume fraction] 27.3 % Low 34.0-46.0 [facility] Comment on above: Performed By: #### 2 [id number] #### [facility] [address] [place] [address] Hemoglobin (Bld) [Mass/Vol] 9.2 g/dL Low 12.0-16.0 [facility] Comment on above: Performed By: #### 2 [id number] #### [facility] [address] [place] [address] Lymphocytes (Bld) [#/Vol] 0.9 E9/L Low 1.0-4.0 [facility] Comment on above: Performed By: #### 2 [id number] #### [facility] [address] [place] [address] Lymphocytes/100 WBC (Bld) 12.3 % Low 14.0-50.0 [facility] Comment on above: Performed By: #### 2 [id number] #### [facility] [address] [place] [address] MCH (RBC) [Entitic mass] 32.4 pg Normal 27.0-34.0 [facility] Comment on above: Performed By: #### 2 [id number] #### [facility] [address] [place] [address] MCHC (RBC) [Mass/Vol] 33.8 g/dL Normal 31.4-36.0 [facility] Comment on above: Performed By: #### 2 [id number] #### [facility] [address] [place] [address] MCV (RBC) [Entitic vol] 95.9 fL Normal 80.0-100.0 [facility] Comment on above: Performed By: #### 2 [id number] #### [facility] [address] [place] [address] Monocytes (Bld) [#/Vol] 0.7 E9/L Normal 0.2-1.0 [facility] Comment on above: Performed By: #### 2 [id number] #### [facility] [address] [place] [address] Neutrophils (Bld) [#/Vol] 5.2 E9/L Normal 2.0-7.5 [facility] Comment on above: Performed By: #### 2 [id number] #### [facility] [address] [place] [address] Neutrophils/100 WBC (Bld) 73.3 % Normal 36.0-75.0 [facility] Comment on above: Performed By: #### 2 [id number] #### [facility] [address] [place] [address] Platelet 335.0 E9/L Normal 150.0-500. 0 [facility] Comment on above: Performed By: #### 2 [id number] #### [facility] [address] [place] [address] Platelet mean volume (Bld) [Entitic vol] 7.2 fL Normal 6.4-10.8 [facility] Comment on above: Performed By: #### 2 [id number] #### [facility] [address] [place] [address] RBC (Bld) [#/Vol] 2.9 E12/L Low 4.3-5.9 [facility] Comment on above: Performed By: #### 2 [id number] #### [facility] [address] [place] [address] WBC corrected for nucl RBC Auto (Bld) [#/Vol] 7.0 E9/L Normal 4.0-11.0 [facility] Comment on above: Result Comment: Zainab pheral smear review performed. Performed By: #### 2 [id number] #### [facility] [address] [place] [address] CHEMISTRYOrdered By: SYSTEM SYSTEM on 10-12-2023 Anion [...] SW-This SW responded to a consult on [address] [place] [address] regarding ETOH / Substance abuse. Patient stated [...] or expected. Thank you! An [phone] Normal [facility] Discharge Note-Nursingon Discharge Note-Nursing CATHERINE ADAMSON :1960 Visit Date:10/08/2023 Inpatient Discharge Instructions Your Care Team Admitting Physician - Art GARCIA, Regi Alvarez Reason for Your Visit fall, right hip [...] 5 mg Tab) potassium chloride (Potassium Chloride (Hfe-Jtef-Ufc 10)) senna (senna 8.6 mg Tab) sodium [...] and recheck right wrist and hip. Where: [address] [place] [address] Business (1) Follow Up with XIMENA ASTUDILLO When: In 0 days Where: [address] [phone] Business (1) Medications What How Much When [...] a day (more content not included)... Normal [facility] HEMATOLOGYOrdered By: SYSTEM SYSTEM on 10-12-2023 Basophils/100 [...] Gregory e Manageron 10-12-2023 Interdisciplinary Note - Home Health Care Coordinator CRM spoke with patient in room. Patient is alert and oriented and participates in discharge planning. No family in room. Patient white board updated, and CRM contact information provided. Discussed CRM spoke with Dr Cordova who saw patient earlier today and she will discharge to [facility] today. Patient states she could not get up today d/t pain and dizziness, will use [facility] to transport. . Reviewed Medicare rights, she denies any questions. Normal [facility] Comment on above: Result Comment: Elec tronically Signed By: Jose E DICKINSON, Luanne\.br\Date and Time Signed: 10/12/23 11:02 EDT Monitor Recordon 10-12-2023 Monitor Record [id number]#1.00TIFF Normal [facility] Monitor Record [id number]#1.00TIFF Normal [facility] BMPon 10-11-2023 Anion gap [Moles/Vol] 9 mmol/L Normal 6-16 [facility] Comment on above: Performed By: #### 2 [id number] #### [facility] [address] [place] [address] Calcium [Mass/Vol] 7.8 mg/dL Low 8.9-11.1 [facility] Comment on above: Performed By: #### 2 [id number] #### [facility] [address] [place] [address] Chloride [Moles/Vol] 102 mmol/L Normal 101-111 [facility] Comment on above: Performed By: #### 2 [id number] #### [facility] [address] [place] [address] CO2 [Moles/Vol] 22 mmol/L Normal 21-31 [facility] Comment on above: Performed By: #### 2 350850 #### [facility] [address] [place] [address] Creatinine [Mass/Vol] 0.7 mg/dL Normal 0.5-1.3 [facility] Comment on above: Performed By: #### 2 [id number] #### [facility] [address] [place] [address] Glucose [Mass/Vol] 92 mg/dL Normal 55-199 [facility] Comment on above: Performed By: #### 2 [id number] #### [facility] [address] [place] [address] Potassium [Moles/Vol] 3.9 mmol/L Normal 3.5-5.3 [facility] Comment on above: Performed By: #### 2 738539 #### [facility] [address] [place] [address] Sodium [Moles/Vol] 129 mmol/L Low 135-145 [facility] Comment on above: Performed By: #### 2 [id number] #### [facility] [address] [place] [address] Urea nitrogen [Mass/Vol] 31 mg/dL High 5-21 [facility] Comment on above: Performed By: #### 2 [id number] #### [facility] [address] [place] [address] Urea nitrogen/Creatinine [Mass ratio] 44 No Units High 10-20 [facility] Comment on above: Performed By: #### 2 [id number] #### [facility] [address] [place] [address] CBC w/ Auto Diffon 4 Basophils/100 WBC (Bld) 0.3 % Normal 0.0-2.0 [facility] Comment on above: Performed By: #### 2 [id number] #### [facility] [address] [place] [address] Basophils/Leukocyte s Auto (Bld) [Pure # fraction] 0.0 E9/L Normal 0.0-0.2 [facility] Comment on above: Performed By: #### 2 808766 #### [facility] [address] [place] [address] Eosinophils (Bld) [#/Vol] 0.4 E9/L Normal 0.0-0.5 [facility] Comment on above: Performed By: #### 2 764245 #### [facility] [address] [place] [address] Eosinophils/100 WBC (Bld) 4.3 % Normal 0.0-8.0 [facility] Comment on above: Performed By: #### 2 [id number] #### [facility] [address] [place] [address] Erythrocyte distribution width (RBC) [Ratio] 13.3 % Normal 10.9-14.2 [facility] Comment on above: Performed By: #### 2 450305 #### [facility] [address] [place] [address] Hematocrit (Bld) [Volume fraction] 25.9 % Low 34.0-46.0 [facility] Comment on above: Performed By: #### 2 [id number] #### [facility] [address] [place] [address] Hemoglobin (Bld) [Mass/Vol] 9.1 g/dL Low 12.0-16.0 [facility] Comment on above: Performed By: #### 2 [id number] #### [facility] [address] [place] [address] Lymphocytes (Bld) [#/Vol] 1.3 E9/L Normal 1.0-4.0 [facility] Comment on above: Performed By: #### 2 [id number] #### [facility] [address] [place] [address] Lymphocytes/100 WBC (Bld) 13.0 % Low 14.0-50.0 [facility] Comment on above: Performed By: #### 2 [id number] #### [facility] [address] [place] [address] MCH (RBC) [Entitic mass] 33.3 pg Normal 27.0-34.0 [facility] Comment on above: Performed By: #### 2 [id number] #### [facility] [address] [place] [address] MCHC (RBC) [Mass/Vol] 35.2 g/dL Normal 31.4-36.0 [facility] Comment on above: Performed By: #### 2 [id number] #### [facility] [address] [place] [address] MCV (RBC) [Entitic vol] 94.5 fL Normal 80.0-100.0 [facility] Comment on above: Performed By: #### 2 [id number] #### [facility] [address] [place] [address] Monocytes (Bld) [#/Vol] 0.9 E9/L Normal 0.2-1.0 [facility] Comment on above: Performed By: #### 2 [id number] #### [facility] [address] [place] [address] Neutrophils (Bld) [#/Vol] 7.3 E9/L Normal 2.0-7.5 [facility] Comment on above: Performed By: #### 2 [id number] #### [facility] [address] [place] [address] Neutrophils/100 WBC (Bld) 73.1 % Normal 36.0-75.0 [facility] Comment on above: Performed By: #### 2 [id number] #### [facility] [address] [place] [address] Platelet 309.0 E9/L Normal 150.0-500. 0 [facility] Comment on above: Performed By: #### 2 [id number] #### [facility] [address] [place] [address] Platelet mean volume (Bld) [Entitic vol] 7.1 fL Normal 6.4-10.8 [facility] Comment on above: Performed By: #### 2 [id number] #### [facility] [address] [place] [address] RBC (Bld) [#/Vol] 2.7 E12/L Low 4.3-5.9 [facility] Comment on above: Performed By: #### 2 [id number] #### [facility] [address] [place] [address] WBC corrected for nucl RBC Auto (Bld) [#/Vol] 9.9 E9/L Normal 4.0-11.0 [facility] Comment on above: Performed By: #### 2 [id number] #### [facility] [address] [place] [address] CHEMISTRYOrdered By: Lab ROP User on 10-11-2023 Glucose [Mass/Vol] 108 mg/dL High 55 - 99 mg/dL [facility] POC Subsection Comment on above: Result Comment: Danny mayes RN/ POC Device SN [id number] 1 Invalid Interpretation Code [facility] POC Subsection POC User ID [id number] 1 Invalid Interpretation Code [facility] POC Subsection POC Username JERED JIANG Invalid Interpretation Code [facility] POC Subsection CHEMISTRYOrdered By: SYSTEM SYSTEM on [...] 09-13 Glucose [Mass/Vol] 108 mg/dL High 55-99 [facility] Comment on above: Result Comment: Danny mayes RN/ Performed By: #### 2 [id number] #### [facility] [address] [place] [address] Consent for Anesthesiaon Consent for Anesthesia [id number]#[id number] Normal [facility] HEMATOLOGYOrdered By: SYSTEM SYSTEM on 10-11-2023 Basophils/100 [...] Insurance Correspondence Off ice10-11-2023 Insurance Correspondence Office [id number]#[id number] Normal [facility] Interdisciplinary Note - Gregory e Manageron 10-11-2023 Interdisciplinary Note - Home Health Care Coordinator CRM spoke with patient and daughter in room. Patient is alert and oriented and participates in discharge planning. Patient white board updated, and CRM contact information provided. Discussed Dr Cordova will see patient today. She states Dr lemons was into see her today. Discussed [facility] had accepted and precert was obtained for dc today. Patient now asking if she can go to [facility] [facility] and not [facility]. Will need to see if they take her insurance and have any beds. If they cannot she will go to [facility]. She is asking to stay a couple days yet and discussed if medically ready for discharge she will need to hi. Patient will need transport at hi. Reviewed Medicare rights, she denies any questions. Gave her a copy of signed form. Correction to above sister August in room not daughter. Informed patient and sister [facility] does take her insurance and referral has been sent, waiting acceptance and will need a precert. And per Gen sx will stay today and work to wean oxygen. Normal [facility] Comment on above: Result Comment: Elec tronically Signed By: Jose E DICKINSON, Luanne\.br\Date and Time Signed: 10/11/23 10:26 EDT IntraOperative Documentson 0 10-11-2023 IntraOperative Documents [id number]#1.00TIFF Normal [facility] Magnesiumon 10-11-2023 Magnesium [Mass/Vol] 1.6 mg/dL Normal 1.3-2.4 [facility] Comment on above: Performed By: #### 2 879645 #### [facility] [address] [place] [address] Monitor Recordon 10-11-2023 Monitor Record [id number]#1.00TIFF Normal [facility] Monitor Record [id number]#1.00TIFF Normal [facility] Phosphoruson 10-11-2023 Phosphate [Mass/Vol] 2.4 mg/dL Normal 1.9-4.6 [facility] Comment on above: Performed By: #### 2 266909 #### [facility] [address] [place] [address] Progress Note-Physicianon Progress Note-Physician Patient: CATHERINE ADAMSON [...] list: All Problems Smoker / SNOMED CT 416475847 / Confirmed Added secondary to documentation in Social History. Elevated ferritin level / SNOMED CT 728686904 / Confirmed Pleural effusion / SNOMED CT 05127023 / Confirmed Screen for colon cancer / SNOMED CT 992294254 / Confirmed Osteoarthritis / SNOMED CT 1296502059 / Confirmed LFT elevation / SNOMED CT 8221273819 / Confirmed Ischemic hepatitis / SNOMED CT 046513106 / Confirmed Hyponatremia / SNOMED CT 681793358 / Confirmed Hyperlipidemia / SNOMED CT 56178929 / Confirmed Essential hypertension / SNOMED CT 39615456 / Confirmed ASHD (arteriosclerotic heart disease) / SNOMED CT 49825022 / Confirmed COPD (chronic obstructive pulmonary disease) / SNOMED CT 67850096 / Confirmed COPD (chronic obstructive pulmonary disease) / SNOMED CT 80144081 / Confirmed At risk for falls / SNOMED CT 894699074 / Possible Problem added when Risk for Falls Careplan was initiated. 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 Arthroscopy and biopsy of knee (074911699). Tubal ligation (008200606). Social History Social & Psychosocial Habits Alcohol [...] adequate air exchange. Cardiovascular: Regular rhythm. Plan [place] [employer] Anesthesiologists (ASA) physical status classification: Class IV. Anesthetic Preoperative Plan: Anesthesia General. Normal [facility] Comment on above: Result Comment: Elec [...] ( From PACU to floor ). Normal [facility] Comment on above: Result Comment: Elec [...] 73.1 % Lymph Auto 13.0 % LOW [place]wood Auto 9.3 % Eos Auto 4.3 % Basophil Auto 0.3 % Neutro Absolute 7.3 E9/L Lymph Absolute 1.3 E9/L [place]wood Absolute 0.9 E9/L Eos Absolute 0.4 E9/L [...] % HI Lymph Auto 7.2 % LOW [place]wood Auto 8.6 % Eos Auto 0.2 % Basophil Auto 0.3 % Neutro Absolute 11.7 E9/L HI Lymph Absolute 1.0 E9/L Redwood Absolute 1.2 E9/L HI Eos Absolute 0.0 [...] BID 10 days. Resume Plavix. . Normal [facility] Comment on above: Result Comment: Elec tronically Signed By: Chana Lemons DO\.maxx\Date and Time Signed: 10/11/23 07:11 EDT eGFRon 10-11-2023 eGFR 96 mL/min/1.73 m2 Normal >=59 [facility] Comment on above: Order Comment: Order added by Discern Expert. Performed By: #### 1 [id number] #### [facility] [address] [place] [address] BMPon 10-10-2023 Anion gap [Moles/Vol] 10 mmol/L Normal 6-16 [facility] Comment on above: Performed By: #### 2 054341 #### [facility] [address] [place] [address] Calcium [Mass/Vol] 8.1 mg/dL Low 8.9-11.1 [facility] Comment on above: Performed By: #### 2 484703 #### [facility] [address] [place] [address] Chloride [Moles/Vol] 103 mmol/L Normal 101-111 [facility] Comment on above: Performed By: #### 2 283733 #### [facility] [address] [place] [address] CO2 [Moles/Vol] 21 mmol/L Normal 21-31 [facility] Comment on above: Performed By: #### 2 300585 #### [facility] [address] [place] [address] Creatinine [Mass/Vol] 0.8 mg/dL Normal 0.5-1.3 [facility] Comment on above: Performed By: #### 2 941673 #### [facility] [address] [place] [address] Glucose [Mass/Vol] 146 mg/dL Normal 55-199 [facility] Comment on above: Performed By: #### 2 485083 #### [facility] [address] [place] [address] Potassium [Moles/Vol] 4.1 mmol/L Normal 3.5-5.3 [facility] Comment on above: Performed By: #### 2 822079 #### [facility] [address] [place] [address] Sodium [Moles/Vol] 130 mmol/L Low 135-145 [facility] Comment on above: Performed By: #### 2 139837 #### [facility] [address] [place] [address] Urea nitrogen [Mass/Vol] 35 mg/dL High 5-21 [facility] Comment on above: Performed By: #### 2 782273 #### [facility] [address] [place] [address] Urea nitrogen/Creatinine [Mass ratio] 44 No Units High 10-20 [facility] Comment on above: Performed By: #### 2 981563 #### [facility] [address] [place] [address] C Urineon 10-10-2023 Bacteria identified Cx Nom [...] Locations R1: This test was performed at: [facility], [address] [place] [address], [address] [facility], [facility] Comment on above: Performed By: #### 2 663492 #### [facility] [address] [place] [address] CBC w/ Auto Diffon 4 Basophils/100 WBC (Bld) 0.3 % Normal 0.0-2.0 [facility] Comment on above: Performed By: #### 2 714443 #### [facility] [address] [place] [address] Basophils/Leukocyte s Auto (Bld) [Pure # fraction] 0.0 E9/L Normal 0.0-0.2 [facility] Comment on above: Performed By: #### 2 935707 #### [facility] [address] [place] [address] Eosinophils (Bld) [#/Vol] 0.0 E9/L Normal 0.0-0.5 [facility] Comment on above: Performed By: #### 2 203838 #### [facility] [address] [place] [address] Eosinophils/100 WBC (Bld) 0.2 % Normal 0.0-8.0 [facility] Comment on above: Performed By: #### 2 719142 #### [facility] [address] [place] [address] Erythrocyte distribution width (RBC) [Ratio] 13.3 % Normal 10.9-14.2 [facility] Comment on above: Performed By: #### 2 547808 #### [facility] [address] [place] [address] Hematocrit (Bld) [Volume fraction] 33.2 % Low 34.0-46.0 [facility] Comment on above: Performed By: #### 2 689428 #### [facility] [address] [place] [address] Hemoglobin (Bld) [Mass/Vol] 11.2 g/dL Low 12.0-16.0 [facility] Comment on above: Performed By: #### 2 565348 #### [facility] [address] [place] [address] Lymphocytes (Bld) [#/Vol] 1.0 E9/L Normal 1.0-4.0 [facility] Comment on above: Performed By: #### 2 307455 #### [facility] [address] [place] [address] Lymphocytes/100 WBC (Bld) 7.2 % Low 14.0-50.0 [facility] Comment on above: Performed By: #### 2 021852 #### [facility] [address] [place] [address] MCH (RBC) [Entitic mass] 32.1 pg Normal 27.0-34.0 [facility] Comment on above: Performed By: #### 2 639362 #### [facility] [address] [place] [address] MCHC (RBC) [Mass/Vol] 33.7 g/dL Normal 31.4-36.0 [facility] Comment on above: Performed By: #### 2 997736 #### [facility] [address] [place] [address] MCV (RBC) [Entitic vol] 95.3 fL Normal 80.0-100.0 [facility] Comment on above: Performed By: #### 2 327987 #### [facility] [address] [place] [address] Monocytes (Bld) [#/Vol] 1.2 E9/L High 0.2-1.0 [facility] Comment on above: Performed By: #### 2 517194 #### [facility] [address] [place] [address] Neutrophils (Bld) [#/Vol] 11.7 E9/L High 2.0-7.5 [facility] Comment on above: Performed By: #### 2 183206 #### [facility] [address] [place] [address] Neutrophils/100 WBC (Bld) 83.7 % High 36.0-75.0 [facility] Comment on above: Performed By: #### 2 565308 #### [facility] [address] [place] [address] Platelet 442.0 E9/L Normal 150.0-500. 0 [facility] Comment on above: Performed By: #### 2 130220 #### [facility] [address] [place] [address] Platelet mean volume (Bld) [Entitic vol] 7.2 fL Normal 6.4-10.8 [facility] Comment on above: Performed By: #### 2 148496 #### [facility] [address] [place] [address] RBC (Bld) [#/Vol] 3.5 E12/L Low 4.3-5.9 [facility] Comment on above: Performed By: #### 2 000996 #### [facility] [address] [place] [address] WBC corrected for nucl RBC Auto (Bld) [#/Vol] 13.9 E9/L High 4.0-11.0 [facility] Comment on above: Performed By: #### 2 818056 #### [facility] [address] [place] [address] CHEMISTRYOrdered By: SYSTEM SYSTEM on 10-10-2023 Anion [...] ADAMSON; Caller Number: H Documentation per a cancer program consultant in the medical record indicates this [...] judgment of the documented diagnoses by the cancer program consultant, do you agree with the diagnosis? [___]Yes, I agree with the diagnosis documented by the cancer program consultant. [___]No, I do not agree with the diagnosis documented by the cancer program consultant. Reason: [___]Other: In responding to this [...] H I agree with diagnosis. Aubrey Mcguire [facility] HEMATOLOGYOrdered By: SYSTEM SYSTEM on 10-10-2023 Basophils/100 [...] Insurance Correspondence Off ice10-10-2023 Insurance Correspondence Office [id number]#1.00TIFF Normal [facility] Interdisciplinary Note - Gregory e Manageron 10-10-2023 Interdisciplinary Note - Home Health Care Coordinator CRM spoke with patient in room. Patient is alert and oriented and participates in discharge planning. No family in room. Patient white board updated, and CRM contact information provided. Discussed Dr Cordova will see patient today.. Patient had surgery yesterday to repair hip and wrist Fx. Patient will need SNF and [facility] has accepted and will need a precert. Patient denies other needs or questions. Will need w/c van or EMS to transport at hi. Reviewed Medicare rights, she denies any questions. Normal [facility] Comment on above: Result Comment: Elec [...] complete ADL functional transfers including sit Normal [facility] IntraOperative Documentson 0 10-10-2023 IntraOperative Documents [id number]#[id number] Normal [facility] Magnesiumon 10-10-2023 Magnesium [Mass/Vol] 1.7 mg/dL Normal 1.3-2.4 [facility] Comment on above: Performed By: #### 2 626890 #### [facility] [address] [place] [address] Main OR Intraoperative Recor don 10-10-2023 Main OR Intraoperative Record IntraOp Document Type FT Summary Primary Physician: Chana Lemons DO Finalized Date/Time: 10/10/23 09:43:20 Pt. Name: CATHERINE ADAMSON/Sex: 1960 Female Med Rec #: [id number] Physician: Art GARCIA, Regi Alvarez Financial #: [id number] Pt. Type: I Room/Bed: S320/01 Admit/Disch: 10/08/23 [...] Role Performed Surgeon - Primary Anesthesiologist of [employer] Developer - Primary Record Time In 10/09/23 16:28:00 [...] Pati Singer Role Performed Scrub - Primary SINGEING TORCH OPERATOR Crane Hoist Or Lift Operator Time In 10/09/23 16:28:00 10/09/23 16:28:00 10/09/23 [...] ACUTE FRA (more content not included)... Normal [facility] Operative Reporton Operative Report SURGERY DATE: 2023 [...] wrist with the hand/wrist dangled off with general assistant. Large fluoroscopy with zone maintenance technician was utilized. Once the arm was [...] and plac (more content not included)... Normal [facility] Comment on above: Result Comment: Elec tronically Signed By: Chana Lemons DO T\.br\Date and Time Signed: 10/10/23 12:51 EDT Phosphoruson 10-10-2023 Phosphate [Mass/Vol] 3.1 mg/dL Normal 1.9-4.6 [facility] Comment on above: Performed By: #### 2 744358 #### [facility] [address] [place] [address] XR Hip 2-3 Views Righton XR Hip [...] mGy = 14.30 DAP = na Normal [facility] XR Wrist 2 Views Righton XR Wrist [...] mGy = 0.60 DAP = na Normal [facility] eGFRon 10-10-2023 eGFR 82 mL/min/1.73 m2 Normal >=59 [facility] Comment on above: Order Comment: Order added by Discern Expert. Performed By: #### 1 [id number] #### [facility] [address] [place] [address] BMPon 10-09-2023 Anion gap [Moles/Vol] 10 mmol/L Normal 6-16 [facility] Comment on above: Performed By: #### 2 547227 #### [facility] [address] [place] [address] Calcium [Mass/Vol] 8.3 mg/dL Low 8.9-11.1 [facility] Comment on above: Performed By: #### 2 508121 #### [facility] [address] [place] [address] Chloride [Moles/Vol] 105 mmol/L Normal 101-111 [facility] Comment on above: Performed By: #### 2 896171 #### [facility] [address] [place] [address] CO2 [Moles/Vol] 21 mmol/L Normal 21-31 [facility] Comment on above: Performed By: #### 2 928414 #### [facility] [address] [place] [address] Creatinine [Mass/Vol] 0.9 mg/dL Normal 0.5-1.3 [facility] Comment on above: Performed By: #### 2 588605 #### [facility] [address] [place] [address] Glucose [Mass/Vol] 96 mg/dL Normal 55-199 [facility] Comment on above: Performed By: #### 2 033065 #### [facility] [address] [place] [address] Potassium [Moles/Vol] 3.9 mmol/L Normal 3.5-5.3 [facility] Comment on above: Performed By: #### 2 968638 #### [facility] [address] [place] [address] Sodium [Moles/Vol] 132 mmol/L Low 135-145 [facility] Comment on above: Performed By: #### 2 544365 #### [facility] [address] [place] [address] Urea nitrogen [Mass/Vol] 33 mg/dL High 5-21 [facility] Comment on above: Performed By: #### 2 615608 #### [facility] [address] [place] [address] Urea nitrogen/Creatinine [Mass ratio] 37 No Units High 10-20 [facility] Comment on above: Performed By: #### 2 777486 #### [facility] [address] [place] [address] CBC w/ Auto Diffon 4 Basophils/100 WBC (Bld) 0.5 % Normal 0.0-2.0 [facility] Comment on above: Performed By: #### 2 979843 #### [facility] [address] [place] [address] Basophils/Leukocyte s Auto (Bld) [Pure # fraction] 0.1 E9/L Normal 0.0-0.2 [facility] Comment on above: Performed By: #### 2 879551 #### [facility] [address] [place] [address] Eosinophils (Bld) [#/Vol] 0.1 E9/L Normal 0.0-0.5 [facility] Comment on above: Performed By: #### 2 982193 #### [facility] [address] [place] [address] Eosinophils/100 WBC (Bld) 0.9 % Normal 0.0-8.0 [facility] Comment on above: Performed By: #### 2 092622 #### [facility] [address] [place] [address] Erythrocyte distribution width (RBC) [Ratio] 13.1 % Normal 10.9-14.2 [facility] Comment on above: Performed By: #### 2 229694 #### [facility] [address] [place] [address] Hematocrit (Bld) [Volume fraction] 31.9 % Low 34.0-46.0 [facility] Comment on above: Performed By: #### 2 514198 #### [facility] [address] [place] [address] Hemoglobin (Bld) [Mass/Vol] 10.8 g/dL Low 12.0-16.0 [facility] Comment on above: Performed By: #### 2 106899 #### [facility] [address] [place] [address] Lymphocytes (Bld) [#/Vol] 1.1 E9/L Normal 1.0-4.0 [facility] Comment on above: Performed By: #### 2 344052 #### [facility] [address] [place] [address] Lymphocytes/100 WBC (Bld) 10.5 % Low 14.0-50.0 [facility] Comment on above: Performed By: #### 2 690114 #### [facility] [address] [place] [address] MCH (RBC) [Entitic mass] 32.1 pg Normal 27.0-34.0 [facility] Comment on above: Performed By: #### 2 350395 #### [facility] [address] [place] [address] MCHC (RBC) [Mass/Vol] 33.8 g/dL Normal 31.4-36.0 [facility] Comment on above: Performed By: #### 2 565385 #### [facility] [address] [place] [address] MCV (RBC) [Entitic vol] 94.9 fL Normal 80.0-100.0 [facility] Comment on above: Performed By: #### 2 163970 #### [facility] [address] [place] [address] Monocytes (Bld) [#/Vol] 1.0 E9/L Normal 0.2-1.0 [facility] Comment on above: Performed By: #### 2 419733 #### [facility] [address] [place] [address] Neutrophils (Bld) [#/Vol] 8.5 E9/L High 2.0-7.5 [facility] Comment on above: Performed By: #### 2 767287 #### [facility] [address] [place] [address] Neutrophils/100 WBC (Bld) 78.8 % High 36.0-75.0 [facility] Comment on above: Performed By: #### 2 141764 #### [facility] [address] [place] [address] Platelet mean volume (Bld) [Entitic vol] 7.1 fL Normal 6.4-10.8 [facility] Comment on above: Performed By: #### 2 432648 #### [facility] [address] [place] [address] Platelets (Bld) [#/Vol] 408.0 E9/L Normal 150.0-500. 0 [facility] Comment on above: Performed By: #### 2 769624 #### [facility] [address] [place] [address] RBC (Bld) [#/Vol] 3.4 E12/L Low 4.3-5.9 [facility] Comment on above: Performed By: #### 2 045623 #### [facility] [address] [place] [address] WBC corrected for nucl RBC Auto (Bld) [#/Vol] 10.8 E9/L Normal 4.0-11.0 [facility] Comment on above: Performed By: #### 2 591481 #### [facility] [address] [place] [address] CHEMISTRYOrdered By: SYSTEM SYSTEM on 10-09-2023 Ethanol Lvl mg/dL Normal <=11mg/dL Remisol Chem Consent for Procedure/Surger yon 10-09-2023 Consent for Procedure/Surgery [id number]#[id number] Normal [facility] EMS Documentationon 10-09-19 24 EMS Documentation Please click on link to see report Normal [facility] Comment on above: Result Comment: Miss ing Attachment - total size limit for all attachments exceeded [email or web address] Can be viewed in source system Ethanolon 10-09-2023 Ethanol Lvl <10 Normal <=11 [facility] Comment on above: Performed By: #### 2 750590 #### [facility] [address] [place] [address] Inpatient Clinical Summaryon 10-09-2023 Inpatient Clinical Summary [address] [address] Clinical Summary Person Information: Name: CATHERINE ADAMSON Age: 63 Years : 1960 Sex: Female PCP: XIMENA ASTUDILLO MD Marital Status: Race: White Ethnicity: Non- or Language: Yemeni Visit Id: Visit Reason: Leg pain-swelling; Hip pain-swelling; Dizziness; Fall; FALL Speciality: Acuity: Enc Type: Inpatient Med Service: Medical Arrival: 10/08/2023 11:57:18 Discharge: Dispo Type: Admitted as IP to this Hosp Address: Marybeth LOPEZ [address] [id number] Provider Notes: Diagnosis: Alcohol abuse; Colles' fracture; [...] every day. nitroglycerin potassium chloride (Potassium Chloride (Whc-Gsyx-Tkz 10)) By Mouth 2 times a day. sodium chloride (Sodium Chloride) Care Team Members: Attending Physician: Aubrey Swift PA-C Consulting Physician: Referring Physician: Follow up: With: Address: When: Chana Lemons [address] [place], [place] [id number] Business (1) Comments: Call for followup appointment 4 weeks. With: Address: When: XIMENA ASTUDILLO [address] [place], [place] [phone] Business (1) Patient Education Information: Normal [facility] Inpatient Patient Summaryon 10-09-2023 Inpatient Patient Summary [address] [address] [facility] Clinical Discharge Instructions PERSON INFORMATION Name: CATHERINE ADAMSON PHYSICIANS Admitting Physician: Art GARCIA, Regi Alvarez Attending Physician: Regi Cordova MD PCP: XIMENA ASTUDILLO MD Discharge Diagnosis: Alcohol abuse; Colles' fracture; Hip fracture, right; Pancreatitis, acute; Rhabdomyolysis Comment: PATIENT EDUCATION INFORMATION Instructions: Medication Leaflets: Follow up: With: Address: When: Chana Lemons [address] [place] [address] Business (1) Comments: Call for followup appointment 2-3 weeks for staple removal right hip and recheck right wrist and hip. With: Address: When: XIMENA BAUDILIO [address] [place] [address] Business (1) MEDICATION LIST Medications to [...] every day. nitroglycerin potassium chloride (Potassium Chloride (Mqf-Fylk-Eih 10)) By Mouth 2 times a day. sodium chloride (Sodium Chloride) No Longer Take the Following Medications hydrochlorothiazide-lisinopril (hydrochlorothiazide-lisinopri l 12.5 mg-20 mg Tab) By Mouth every day. magnesium sulfate/potass Cl/sodium sulf (Sutab oral tablet) Please follow instructions per packaging and physician's handout. Refills: 0., Ordered as indicated per Dr. Hernandez. tramadol (traMADOL 50 mg Tab) By Mouth every 6 hours. Comment: Normal [facility] Inpatient Patient Summary [place] [id number] Patient Discharge Instructions PERSON INFORMATION Name: CATHERINE [...] Follow up: With: Address: When: Chana Lemons [address] [place], [place] [phone] Business (1) Comments: Call for followup appointment 4 weeks. With: Address: When: XIMENA ASTUDILLO [address] [place] [address] Business (1) In the event that this [...] Dose: Next Dose: potassium chloride (Potassium Chloride (Zky-Vxrn-Dlu 10)) By Mouth 2 times a day. [...] every day. nitroglycerin potassium chloride (Potassium Chloride (Vpq-Sjxi-Rkr 10)) By Mouth 2 maisha (more content not included)... Normal [facility] Insurance Correspondence Off 10-09-2023 Insurance Correspondence Office [id number]#1.00TIFF [facility] Insurance Correspondence Office [id number]#1.00TIFF [facility] Interdisciplinary Note - Gregory e Manageron 10-09-2023 Interdisciplinary Note - Home Health Care Coordinator CRM spoke with patient, daughter and sisters [...] Discussed local SNF choices and she prefers [facility] followed by [facility]. Will need a precert. Anticipated dc in 2-3 days. Patient does admit to daily RTOH use and forensic social worker will see today. Reviewed Medicare rights, she [...] and use her home supply at SNF. [facility] Comment on above: Result Comment: Elec tronically Signed By: Jose E DICKINSON, Luanne\.br\Date and Time Signed: 10/09/23 14:07 EDT Interdisciplinary Note - Soc ial Workeron 10-09-2023 Interdisciplinary Note - Paper Rewinder Operator This SW responded to a consult on [...] time. SW will remain available as needed. [facility] Interdisciplinary Note - Paper Rewinder Operator This SW responded to a consult on [address] [place] [address] regarding ETOH / Substance abuse. Patient stated [...] SW will remain available as needed. Normal [facility] Magnesiumon 10-09-2023 Magnesium [Mass/Vol] 1.7 mg/dL Normal 1.3-2.4 [facility] Comment on above: Performed By: #### 2 [id number] #### [facility] [address] [place] [address] Main OR Intraoperative Recor don 10-09-2023 Main OR Intraoperative Record IntraOp Document Type FT Summary Primary Physician: Chana Lemons DO Finalized Date/Time: 10/09/23 18:09:03 Pt. Name: CATHERINE ADAMSON/Sex: 1960 Female Med Rec #: [id number] Physician: Art GARCIA, Regi Alvarez Financial #: [id number] Pt. Type: I Room/Bed: Admit/Disch: 10/08/23 11:57:18 [...] Role Performed Surgeon - Primary Anesthesiologist of [employer] Essbase Developer - Primary Record Time In 10/09/23 16:28:00 [...] Pati Singer Role Performed Scrub - Primary SINGEING TORCH OPERATOR Crane Hoist Or Lift Operator Time In 10/09/23 16:28:00 10/09/23 16:28:00 10/09/23 [...] Time Out Chana Lemons DO, Given Participants [facility] , Gary Beard, Ashley Zhang, Zaira BAUMAN, [...] AND UL (more content not included)... Normal [facility] Main OR PACU I Recordon 09-12 Main OR PACU I Record PACU Phase I Document Type FT Summary Primary Physician: Chana Lemons DO Finalized Date/Time: 10/09/23 19:01:13 Pt. Name: CATHERINE ADAMSON/Sex: 1960 Female Med Rec #: [id number] Physician: Art GARCIA, Regi Alvarez Financial #: [id number] Pt. Type: I Room/Bed: [place] [address] Admit/Disch: 10/08/23 11:57:18 - Institution: Case Times [...] Signed By: Sara Son RN 10/09/23 19:01 [facility] Message from Medicareon 09-12 Message from Medicare [id number]#1.00TIFF Normal [facility] Monitor Recordon 10-09-2023 Monitor Record [id number]#1.00TIFF Normal [facility] Monitor Record [id number]#1.00TIFF [facility] Operative Reporton Operative Report Patient: KRYSTLE [...] % HI Lymph Auto 10.5 % LOW [place]wood Auto 9.3 % Eos Auto 0.9 % Basophil Auto 0.5 % Neutro Absolute 8.5 E9/L HI Lymph Absolute 1.1 E9/L Redwood Absolute 1.0 E9/L Eos Absolute 0.1 E9/L [...] POSITIVE UA Spec Desc Frankel UA Color La Center UA Clarity Ex.Turbid UA Spec Grav 1.018 [...] Glucose Cap 95 mg/dL POC Device SN [id number] POC User ID [id number] POC Username POC Username 10/08/2023 12:00 EDT WBC 16.6 E9/L HI RBC 3.8 E12/L LOW HGB 12.1 gm/dL Hct 36.5 % MCV 95.3 fL MCH 31.6 pg MCHC 33.2 gm/dL RDW 13.0 % Platelet 509.0 E9/L HI MPV 7.4 fL Neutro Auto 87.1 % HI Lymph Auto 5.5 % LOW Redwood Auto 7.2 % Eos Auto 0.0 % Basophil Auto 0.2 % Neutro Absolute 14.4 E9/L HI Lymph Absolute 0.9 E9/L LOW Redwood Absolute 1.2 E9/L HI Eos Absolute 0.0 [...] Room in stable and satisfactory condition.. Normal [facility] Comment on above: Result Comment: Elec tronically Signed By: Chana Lemons DO\.br\Date and Time Signed: 10/09/23 18:20 EDT Outpatient Surgery Discharge Instructionon 10-09-2023 Outpatient Surgery Discharge Instruction [place] [id number] Patient Discharge Instructions PERSON INFORMATION Name: CATHERINE [...] 50% partial weight right hip 4 weeks. [place] out right hip 2-3 weeks. No weight [...] Follow up: With: Address: When: Chana Lemons [address] [place] [phone] Business (1) Comments: Call for followup appointment 2-3 weeks for staple removal right hip and recheck right wrist and hip. With: Address: When: XIMENA ASTUDILLO [address] [place] [phone] Business (1) Pharmacy Information: You may receive a survey from [facility] asking you to rate your care experience. Your feedback is important and will help us understand what we do well and how we can improve the quality of care we provide to you, your loved ones and our community. It?s an honor to serve you. Thank you for choosing [facility] HERE ARE THE MEDICATION CHANGES THAT OCCURRED [...] every day. nitroglycerin potassium chloride (Potassium Chloride (Wic-Fkie-Yiu 10)) By Mouth 2 times a day. [...] PATIENT EDUCATION INFORMATION Instructions: Medication Leaflets: Normal [facility] Patient Education - Texton 0 10-09-2023 Patient Education - Text Normal [facility] Patient Education - Text [facility] Phosphoruson 10-09-2023 Phosphate [Mass/Vol] 3.1 mg/dL Normal 1.9-4.6 [facility] Comment on above: Performed By: #### 2 [id number] #### [facility] [address] [place] [address] Progress Note-Nurseon 2023 Progress Note-Nurse Patient returned [...] given while order was still active. Normal [facility] Progress Note-Physicianon Progress Note-Physician Patient: CATHERINE ADAMSON [...] Allergic Reactions (All) No Known Allergies Normal [facility] Comment on above: Result Comment: Elec tronically Signed By: Chana Lemons DO\.br\Date and Time Signed: 10/09/23 06:35 EDT eGFRon 10-09-2023 eGFR 71 mL/min/1.73 m2 Normal >=59 [facility] Comment on above: Order Comment: Order added by Discern Expert. Performed By: #### 1 [id number] ####[facility] [address] [place] [address] ABO/Rhon 10-08-2023 ABO/Rh Positive Invalid Interpretation Code [facility] Comment on above: Performed By: #### 2 [id number] #### [facility] [address] [place] [address] ABO/Rh History Checkon 10-07 ABO/Rh History Check Type verified by second s Normal [facility] Comment on above: Performed By: #### 1 [id number] #### [facility] [address] [place] [address] ABO/Rh Retypeon 10-08-2023 ABO/Rh Retype Interp Positive Invalid Interpretation Code [facility] Comment on above: Order Comment: pt in CT [id number] 10/08/2023 12:37:24 EDT Performed By: #### 1 [id number] #### [facility] [address] [place] [address] ABSCon 10-08-2023 ABSC Gel Interp Negative Normal [facility] Comment on above: Performed By: #### 1 [id number] #### [facility] [address] [place] [address] AMIKACIN:SUSC:PT:ISOLATE:ORD QN:MICOrdered By: Vonnie Jauregui on 10-08-2023 Amikacin YUNI [Susc] >100,000 cfu/ml Citr obacter farmeri [facility] Amikacin YUNI [Susc]Ordered B y: Vonnie Jauregui on 10-08-2023 Citrobacter farmeri Citrobacter farmeri [facility] BLOOD BANKOrdered By: Nichelle Shoemaker on 10-08-2023 ABO/Rh Retype Interp Positive Invalid Interpretation Code [facility] BB Subsection ABO/Rh Interp Positive Invalid Interpretation Code [facility] BB Subsection ABSC Gel Interp Negative (10/08/23 12:13 PM) Normal [facility] BB Subsection BMPon 10-08-2023 Anion gap [Moles/Vol] 16 mmol/L Normal 6-16 [facility] Comment on above: Performed By: #### 2 [id number] #### [facility] [address] [place] [address] Calcium [Mass/Vol] 8.2 mg/dL Low 8.9-11.1 [facility] Comment on above: Performed By: #### 2 [id number] #### [facility] [address] [place] [address] Chloride [Moles/Vol] 105 mmol/L Normal 101-111 [facility] Comment on above: Performed By: #### 2 [id number] #### [facility] [address] [place] [address] CO2 [Moles/Vol] 20 mmol/L Low 21-31 [facility] Comment on above: Performed By: #### 2 [id number] #### [facility] [address] [place] [address] Creatinine [Mass/Vol] 0.6 mg/dL Normal 0.5-1.3 [facility] Comment on above: Performed By: #### 2 [id number] #### [facility] [address] [place] [address] Glucose [Mass/Vol] 108 mg/dL Normal 55-199 [facility] Comment on above: Performed By: #### 2 [id number] #### [facility] [address] [place] [address] Potassium [Moles/Vol] 3.5 mmol/L Normal 3.5-5.3 [facility] Comment on above: Performed By: #### 2 696113 #### [facility] [address] [place] [address] Sodium [Moles/Vol] 137 mmol/L Normal 135-145 [facility] Comment on above: Performed By: #### 2 [id number] #### [facility] [address] [place] [address] Urea nitrogen [Mass/Vol] 25 mg/dL High 5-21 [facility] Comment on above: Performed By: #### 2 [id number] #### [facility] [address] [place] [address] Urea nitrogen/Creatinine [Mass ratio] 42 No Units High 10-20 [facility] Comment on above: Performed By: #### 2 [id number] #### [facility] [address] [place] [address] Blood Bank ID#on 10-08-2023 BBID# [id number] Invalid Interpretation Code [facility] Comment on above: Performed By: #### 1 [id number] #### [facility] [address] [place] [address] CBC w/ Auto Diffon 4 Basophils/100 WBC (Bld) 0.2 % Normal 0.0-2.0 [facility] Comment on above: Performed By: #### 2 [id number] #### [facility] [address] [place] [address] Basophils/Leukocyte s Auto (Bld) [Pure # fraction] 0.0 E9/L Normal 0.0-0.2 [facility] Comment on above: Performed By: #### 2 [id number] #### [facility] [address] [place] [address] Eosinophils (Bld) [#/Vol] 0.0 E9/L Normal 0.0-0.5 [facility] Comment on above: Performed By: #### 2 721918 #### [facility] [address] [place] [address] Eosinophils/100 WBC (Bld) 0.0 % Normal 0.0-8.0 [facility] Comment on above: Performed By: #### 2 [id number] #### [facility] [address] [place] [address] Erythrocyte distribution width (RBC) [Ratio] 13.0 % Normal 10.9-14.2 [facility] Comment on above: Performed By: #### 2 595241 #### [facility] [address] [place] [address] Hematocrit (Bld) [Volume fraction] 36.5 % Normal 34.0-46.0 [facility] Comment on above: Performed By: #### 2 [id number] #### [facility] [address] [place] [address] Hemoglobin (Bld) [Mass/Vol] 12.1 g/dL Normal 12.0-16.0 [facility] Comment on above: Performed By: #### 2 [id number] #### [facility] [address] [place] [address] Lymphocytes (Bld) [#/Vol] 0.9 E9/L Low 1.0-4.0 [facility] Comment on above: Performed By: #### 2 683022 #### [facility] [address] [place] [address] Lymphocytes/100 WBC (Bld) 5.5 % Low 14.0-50.0 [facility] Comment on above: Performed By: #### 2 [id number] #### [facility] [address] [place] [address] MCH (RBC) [Entitic mass] 31.6 pg Normal 27.0-34.0 [facility] Comment on above: Performed By: #### 2 890215 #### [facility] [address] [place] [address] MCHC (RBC) [Mass/Vol] 33.2 g/dL Normal 31.4-36.0 [facility] Comment on above: Performed By: #### 2 310553 #### [facility] [address] [place] [address] MCV (RBC) [Entitic vol] 95.3 fL Normal 80.0-100.0 [facility] Comment on above: Performed By: #### 2 962930 #### [facility] [address] [place] [address] Monocytes (Bld) [#/Vol] 1.2 E9/L High 0.2-1.0 [facility] Comment on above: Performed By: #### 2 [id number] #### [facility] [address] [place] [address] Neutrophils (Bld) [#/Vol] 14.4 E9/L High 2.0-7.5 [facility] Comment on above: Performed By: #### 2 852275 #### [facility] [address] [place] [address] Neutrophils/100 WBC (Bld) 87.1 % High 36.0-75.0 [facility] Comment on above: Performed By: #### 2 [id number] #### [facility] [address] [place] [address] Platelet mean volume (Bld) [Entitic vol] 7.4 fL Normal 6.4-10.8 [facility] Comment on above: Performed By: #### 2 482686 #### [facility] [address] [place] [address] Platelets (Bld) [#/Vol] 509.0 E9/L High 150.0-500. 0 [facility] Comment on above: Performed By: #### 2 086496 #### [facility] [address] [place] [address] RBC (Bld) [#/Vol] 3.8 E12/L Low 4.3-5.9 [facility] Comment on above: Performed By: #### 2 144226 #### [facility] [address] [place] [address] RBC size Nom (Bld) NORMAL Invalid Interpretation Code [facility] Comment on above: Performed By: #### 2 [id number] #### [facility] [address] [place] [address] Toxic granules LM Ql (Bld) PRESENT Invalid Interpretation Code [facility] Comment on above: Performed By: #### 2 [id number] #### [facility] [address] [place] [address] WBC corrected for nucl RBC Auto (Bld) [#/Vol] 16.6 E9/L High 4.0-11.0 [facility] Comment on above: Performed By: #### 2 090172 #### [facility] [address] [place] [address] CHEMISTRYOrdered By: SYSTEM SYSTEM on 10-08-2023 Amphetamines [...] Unconfirmed by an Alternate Method Called to Anan sam by [id number] Interpretive Data: N egative Cutoff: <50 ng/mL [...] Called to Anna Sam In ER by [id number] No Confirmation Requested by Physician Unconfirmed by [...] Sensitivity Troponin I Instructions For Use, Graciela Darby, December 2017) CHEMISTRYOrdered By: Lab ROP User on 10-08-2023 Glucose [Mass/Vol] 95 mg/dL Normal 55 - 99 mg/dL [facility] POC Subsection Comment on above: Result Comment: Katie farhan Meter POC Device SN [id number] 1 Invalid Interpretation Code [facility] POC Subsection POC User ID [id number] 1 Invalid Interpretation Code [facility] POC Subsection POC Username JOSE ADAMS Invalid Interpretation Code [facility] POC Subsection CKon 10-08-2023 Total CK 442 Int._Unit/L Abnormal 14-261 [facility] Comment on above: Result Comment: Crit ical Result Verified by Repeat Analysis Critical Result [id number] Called to and read back by: ADOLFO PUTNAM at: 10/08/2023 13:08:23 by:ROSEMARIE Performed By: #### 2 [id number] #### [facility] [address] [place] [address] COAGULATIONOrdered By: Brissa Dacosta on 10-08-2023 aPTT Coag (PPP) [Time] 47.8 s High 25.1 - 36.5 second(s) [facility] Auto Coag Comment on above: Interpretive Data: [...] the same coagulation reagent and instrumentation as [facility]. Currently there are no coagulation studies available worldwide for children to 14 days, and no normal ranges. Heparin therapeutic range (represented by Anti-Factor Xa activity of 0.2 - 0.4 U/mL) corresponds to PTT of 56.6 - 109.0 sec. INR Coag (PPP) [Relative time] 1.10 {INR} Invalid Interpretation Code [facility] Auto Coag Comment on above: Interpretive Data: I NR results are specifically intended to assess patients stabilized on long-term Anticoagulation therapy suggested INR s Less Intensive Anticoagulation 2.0 3.0 Conventional Range 3.0 4.5 PT Coag (PPP) [Time] 12.3 s Normal 9.4 - 12.5 second(s) [facility] Auto Coag Comment on above: Interpretive Data: [...] the same coagulation reagent and instrumentation as [facility]. Currently there are no coagulation studies available [...] contrast amount in ml's: 0 Normal [facility] CT Chest w/o Contraston 05-2 CT Chest [...] DO Transcribed by: RICHARD Technologist: ANGELES Mcguire [facility] CT Head or Brain w/o Contras ton [...] DO Transcribed by: RICHARD Technologist: ANGELES Mcguire [facility] CT Spine Cervical w/o Contra ston 10-08-2023 [...] DO Transcribed by: RICHARD Technologist: ANGELES Mcguire [facility] Capillary Glucose POCon 09-12 Glucose [Mass/Vol] 95 mg/dL Normal 55-99 [facility] Comment on above: Result Comment: Katie real Meter Performed By: #### 2 [id number] #### [facility] [address] [place] [address] Consent for Treatmenton 09-12 Consent for Treatment [id number]#1.00TIFF Normal [facility] ED Clinical Summaryon 2023 ED Clinical Summary (Inserted Image. Patricia ble to display) [address] [address] ED Clinical Summary Person Information Name: CATHERINE ADAMSON/[place] Age: 63 Years : 1960 Sex: Female Language: Yemeni PCP: XIMENA ASTUDILLO MD Marital Status: Visit Id: Visit Reason: Leg pain-swelling; Hip pain-swelling; Dizziness; Fall; FALL Speciality: Acuity: 2 Enc Type: Inpatient Med Service: Emergency Arrival: 10/08/2023 11:57:18 Discharge: LOS: 000 06:15 Checkin: 10/08/2023 11:57:18 Checkout: 10/08/2023 18:12:00 Dispo Type: Admitted as IP to this [facility] EVENTS: Event Name Event Status Request Date/Time [...] 17:09:41 Patient Care Request 10/08/2023 17:46:12 ADDRESS: [address] [place] [id number] PHYS DOC NOTES: Addendum by Richardson (more content not included)... Normal [facility] ED Note-Physicianon 10-08-19 24 ED Note-Physician Basic [...] or rigidity noted. Neurological: A&O, normal equal labor representative strength, normal speech, normal coordination, normal motor, [...] and findings consistent with pancreatitis. It does returns clerk that the patient drinks at least 6 [...] EDT, S (more content not included)... Normal [facility] Comment on above: Result Comment: Elec [...] or rigidity noted. Neurological: A&O, normal equal labor representative strength, normal speech, normal coordination, normal motor, [...] and findings consistent with pancreatitis. It does returns clerk that the patient drinks at least 6 drinks of alcohol per day. Assessment/Plan Alcohol abuse (F10.10: Alcohol abuse, uncomplicated) Colles' fracture (S52.008E: Colles' fracture of unspecified radius, initial encounter for closed fracture) Hip fracture, right (S72.001A: Fracture of unspecified part of neck of right femur, initial encounter for closed fracture) Pancreatitis, acute (K85.90: Acute pancreatitis without necrosis or infection, unspecified) Rhabdomyolysis (M62.82: Rhabdomyolysis) Orders: morphine, 4 mg = 2 mL, Injection, IV Push, Once, Stop date 10/08/23 12:02:00 EDT, S (more content not included)... Normal [facility] Comment on above: Result Comment: Elec tronically Signed By: Rigo Anderson DO\.br\Date and Time Signed: 10/08/23 14:31 EDT ED Patient Education Noteon 10-08-2023 ED Patient Education Note Normal [facility] ED Patient Summaryon 024 ED Patient Summary (Inserted Image. Patricia ble to display) [place] [id number] Patient Discharge Instructions Person Information Name: CATHERINE ADAMSON Age: 63 Years Arrival Date: 10/08/2023 11:57:18 Discharge Diagnosis: Alcohol abuse; Colles' fracture; Hip fracture, right; Pancreatitis, acute; Rhabdomyolysis Primary Care Physician: XIMENA ASTUDILLO MD Provider Information Primary Provider: Rigo Anderson DO Advanced System Manager:None The exam and treatment you received in the Emergency Department were for an urgent problem and are not intended as complete care. It is important that you follow up with a doctor, nurse practitioner, or physician?s general assistant for ongoing care. If your symptoms become [...] opioids can be used to help relieve ysothkgj-ti-mgpdzu pain and are often prescribed following a [...] be struggling with addiction, tell your health primary health care nurse and ask for guidance or call [facility]?S National Helpline at 4-168-624-XIAF. f Source: [place] Department of Health and Human Services/Center for Disease Control & Prevention [facility] (more content not included)... Normal [facility] Ethanolon 10-08-2023 Ethanol Lvl <10 Normal <=11 [facility] Comment on above: Performed By: #### 2 [id number] #### [facility] [address] [place] [address] HEMATOLOGYOrdered By: SYSTEM SYSTEM on 10-08-2023 RBC size Nom (Bld) NORMAL *NA* (10/08/23 12:00 PM) Invalid Interpretation Code Remisol Heme Toxic granules LM Ql (Bld) PRESENT *NA* (10/08/23 12:00 PM) Invalid Interpretation Code Remisol Heme Hep Func PanelOrdered By: [employer] SYSTEM on 10-08-2023 Albumin [Mass/Vol] 2.9 g/dL Low 3.3 - 5.0 gm/dL Remisol Chem Comment on above: Performed By: #### 2 [id number] #### [facility] [address] [place] [address] Bilirubin [Mass/Vol] 0.6 mg/dL Normal 0.0 - 1.1 mg/dL Remisol Chem Comment on above: Performed By: #### 2 [id number] #### [facility] [address] [place] [address] Bilirubin.direct [Mass/Vol] 0.2 mg/dL Normal 0.0 - 0.4 mg/dL Remisol Chem Comment on above: Performed By: #### 2 [id number] #### [facility] [address] [place] [address] Bilirubin.indirect [Mass or moles/Vol] 0.4 mg/dL Normal 0.1 - 0.9 mg/dL Remisol Chem Comment on above: Performed By: #### 2 [id number] #### [facility] [address] [place] [address] Globulin (S) [Mass/Vol] 3.0 g/dL Normal 1.4 - 4.0 gm/dL Remisol Chem Comment on above: Performed By: #### 2 119406 #### [facility] [address] [place] [address] Protein [Mass/Vol] 5.9 g/dL Low 6.0 - 7.8 gm/dL Remisol Chem Comment on above: Performed By: #### 2 [id number] #### [facility] [address] [place] [address] Hep Func Panelon 10-08-2023 Albumin/Globulin (S) [Mass conc ratio] 1.0 Low 1.1-2.2 [facility] Comment on above: Performed By: #### 2 [id number] #### [facility] [address] [place] [address] ALP [Catalytic activity/Vol] 106 Int._Unit/L High 21-98 [facility] Comment on above: Performed By: #### 2 [id number] #### [facility] [address] [place] [address] ALT No additional P-5'-P [Catalytic activity/Vol] 35 Int._Unit/L Normal 6-46 [facility] Comment on above: Performed By: #### 2 554859 #### [facility] [address] [place] [address] AST [Catalytic activity/Vol] 65 Int._Unit/L High 5-43 [facility] Comment on above: Performed By: #### 2 345240 #### [facility] [address] [place] [address] Lactic AcidOrdered By: Doorbot on 10-08-2023 Lactic Acid Lvl 1.9 mmol/L Normal 0.5 - 2.2 mmol/L Remisol Chem Comment on above: Performed By: #### 2 512663 #### [facility] [address] [place] [address] Lipase LevelOrdered By: SYST EM SYSTEM on 10-08-2023 Lipase [Catalytic activity/Vol] 256 U/L High 13 - 58 unit/L Remisol Chem Comment on above: Performed By: #### 2 [id number] #### [facility] [address] [place] [address] Magnesiumon 10-08-2023 Magnesium [Mass/Vol] 1.8 mg/dL Normal 1.3-2.4 [facility] Comment on above: Performed By: #### 2 445675 #### [facility] [address] [place] [address] Monitor Recordon 10-08-2023 Monitor Record [id number]#1.00TIFF Normal [facility] Monitor Record [id number]#1.00TIFF Normal [facility] No Panel InformationOrdered By: ANGPROCESSSERVER MICROBIOLOGY on 10-08-2023 Blood Culture Charcoal No growth at 4 days. Final to follow at 7 days. [facility] Blood Culture Charcoal No growth at 4 days. Final to follow at 7 days. [facility] PT & PTTon 10-08-2023 aPTT Coag (PPP) [Time] 47.8 second(s) High 25.1-36.5 [facility] Comment on above: Result Comment: Para meter [...] the same coagulation reagent and instrumentation as [facility]. Currently there are no coagulation studies available worldwide for children to 14 days, and no normal ranges. Heparin therapeutic range (represented by Anti-Factor Xa activity of 0.2 - 0.4 U/mL) corresponds to PTT of 56.6 - 109.0 sec. Performed By: #### 1 [id number] #### [facility] [address] [place] [address] INR Coag (PPP) [Relative time] 1.10 {INR} Invalid Interpretation Code [facility] Comment on above: Result Comment: INR results are specifically intended to assess patients stabilized on long-term Anticoagulation therapy suggested INR?s ?Less Intensive Anticoagulation? 2.0 ? 3.0 Conventional Range 3.0 ? 4.5 Performed By: #### 1 [id number] #### [facility] [address] [place] [address] PT Coag (PPP) [Time] 12.3 second(s) Normal 9.4-12.5 [facility] Comment on above: Result Comment: 15 d [...] the same coagulation reagent and instrumentation as [facility]. Currently there are no coagulation studies available worldwide for children to 14 days, and no normal ranges. Performed By: #### 1 [id number] #### [facility] [address] [place] [address] Pre-Arrival Noteon 4 Pre-Arrival Note Pre-Arrival Summary Name: , [facility] Current Date: 10/08/2023 11:57:48 EDT Gender: Female Date of : Age: 63 Pre-Arrival Type: EMS ETA: 10/08/2023 12:18:00 EDT Primary Care Physician: Presenting Problem: fell , R hip injury Pre-Arrival User: Jayla Sharp RN Referring Source: Location: Completion Date/Time: 10/08/2023 11:49:00 [facility] Emergency Department Pre-Hospital Report Form Vital Signs: 160/64; 125; 94% on 4L Pre-Hospital Report: pt fell on , found today. R hip injury, + anticoags. A/Ox3. Treatment in Route: 18 L AC Response to Treatment: Misc. Issues: Normal [facility] Troponinon 10-08-2023 Troponin 26.70 pg/mL Normal 10.10-27.1 0 [facility] Comment on above: Result Comment: The 95% CI (Confidence Interval) PPV (Positive Predictive Value) for myocardial infarction in females is 38 pg/mL, in males 51 pg/mL. The results should be used in conjunction with clinical conditions of myocardial infarction. (Access High Sensitivity Troponin I Instructions For Use, Rgaciela Desean, December 2017) Performed By: #### 2 [id number] #### [facility] [address] [place] [address] U Drug Screenon 10-08-2023 Amphetamines Screen method >1000 ng/mL Ql (U) Negative Normal NEGATIVE [facility] Comment on above: Result Comment: Nega tive Cutoff: <1000 ng/mL Performed By: #### 2 [id number] #### [facility] [address] [place] [address] Barbiturates Screen Ql (U) Negative Normal NEGATIVE [facility] Comment on above: Result Comment: Nega tive Cutoff: <200 ng/mL Performed By: #### 2 [id number] #### [facility] [address] [place] [address] Benzodiazepines Ql (U) Negative Normal NEGATIVE [facility] Comment on above: Result Comment: Nega tive Cutoff: <200 ng/mL Performed By: #### 2 [id number] #### [facility] [address] [place] [address] Cannabinoids Screen Ql (U) Positive Abnormal NEGATIVE [facility] Comment on above: Result Comment: Crit ical Result Verified by Repeat Analysis No Confirmation Requested by Physician Unconfirmed by an Alternate Method Called to Anna sam by [id number] Negative Cutoff: <50 ng/mL Performed By: #### 2 [id number] #### [facility] [address] [place] [address] Cocaine Ql (U) Negative Normal NEGATIVE [facility] Comment on above: Result Comment: Nega tive Cutoff: <300 ng/mL Performed By: #### 2 [id number] #### [facility] [address] [place] [address] Opiates Screen Ql (U) Positive Abnormal NEGATIVE [facility] Comment on above: Result Comment: Crit ical Result Verified by Repeat Analysis Called to Anna Sam In ER by [email or web address] No Confirmation Requested by Physician Unconfirmed by an Alternate Method Negative Cutoff: <300 ng/mL Performed By: #### 2 [id number] #### [facility] [address] [place] [address] Phencyclidine Screen method >25 ng/mL Ql (U) Negative Normal NEGATIVE [facility] Comment on above: Result Comment: Nega tive Cutoff: <25 ng/mL These drug screen results are to be used for medical (i.e., treatment) purposes only. Unconfirmed drug screening results must not be used for non-medical purposes (e.g., employment testing, legal testing). Performed By: #### 2 [id number] #### [facility] [address] [place] [address] U Fentanyl Positive Abnormal NEGATIVE [facility] Comment on above: Result Comment: Crit ical [...] testing, legal testing). Performed By: #### 2 [id number] #### [facility] [address] [id number] UA with Cult Rflxon 10-08-19 24 Bacteria Auto Ql (U) 4+ /HPF Abnormal Trace [facility] Comment on above: Performed By: #### 4 [id number] #### [facility] [address] [place] [address] Clarity (U) Ex.Turbid Abnormal Clear [facility] Comment on above: Performed By: #### 4 [id number] #### [facility] [address] [place] [address] Color (U) [place] Abnormal Yellow [facility] Comment on above: Result Comment: Micr oscopic readings are only performed on those samples that meet specific criteria set forth by [facility]. Performed By: #### 4 [id number] #### [facility] [address] [place] [address] Hemoglobin Auto test strip (U) [Mass/Vol] 3+ mg/dL Abnormal Negative [facility] Comment on above: Performed By: #### 4 [id number] #### [facility] [address] [place] [address] Ketones Auto test strip Ql (U) 2+ mg/dL Abnormal Negative [facility] Comment on above: Performed By: #### 4 [id number] #### [facility] [address] [place] [address] Leukocyte clumps Auto (Urine sed) [#/Area] >30 Abnormal [facility] Comment on above: Performed By: #### 4 [id number] #### [facility] [address] [place] [address] Leukocyte esterase Auto test strip Ql (U) 500 Nima/uL Abnormal Negative [facility] Comment on above: Performed By: #### 4 [id number] #### [facility] [address] [place] [address] Mucus Auto Ql (U) 1+ CD:[id number] Abnormal Negative [facility] Comment on above: Performed By: #### 4 [id number] #### [facility] [address] [place] [address] Nitrite Auto test strip Ql (U) 2+ mg/dL Abnormal Negative [facility] Comment on above: Performed By: #### 4 [id number] #### [facility] [address] [place] [address] pH (U) 6.0 [pH] Invalid Interpretation Code 5.0-9.0 [facility] Comment on above: Performed By: #### 4 [id number] #### [facility] [address] [place] [address] Protein Ql (U) 2+ mg/dL Abnormal Negative [facility] Comment on above: Performed By: #### 4 [id number] #### [facility] [address] [place] [address] RBC Ql (U) >75 Abnormal 0-3 [facility] Comment on above: Performed By: #### 4 [id number] #### [facility] [address] [place] [address] Specific gravity (U) [Rel density] 1.018 Invalid Interpretation Code 1.005-1.03 0 [facility] Comment on above: Performed By: #### 4 [id number] #### [facility] [address] [place] [address] WBC Auto (Urine sed) [#/Area] >75 Abnormal 0-5 [facility] Comment on above: Performed By: #### 4 [id number] #### [facility] [address] [place] [address] Type of Urine collection method Frankel Normal [facility] Comment on above: Performed By: #### 4 [id number] #### [facility] [address] [place] [address] UA with Cult RflxOrdered By: SYSTEM SYSTEM on 10-08-2023 Bilirubin Ql (U) Negative Normal Negativemg /dL [facility] UA Auto SS Comment on above: Performed By: #### 4 [id number] #### [facility] [address] [place] [address] Glucose Ql (U) Negative Normal Negativemg /dL [facility] UA Auto SS Comment on above: Performed By: #### 4 [id number] #### [facility] [address] [place] [address] Urobilinogen (U) [Mass/Vol] Negative Normal Negativemg /dL [facility] UA Auto SS Comment on above: Performed By: #### 4 [id number] #### [facility] [address] [place] [address] URINALYSISOrdered By: SYSTEM SYSTEM on 10-08-2023 Bacteria Auto Ql (U) 4+ /HPF Invalid Interpretation Code Trace/HPF [facility] UA Auto SS Clarity (U) Ex.Turbid *ABN* (10/08/23 2:00 PM) Invalid Interpretation Code Clear [facility] UA Auto SS Color (U) [place] 3 *ABN* (10/08/23 2:00 PM) Invalid Interpretation Code Yellow [facility] UA Auto SS Comment on above: Interpretive Data: M icroscopic readings are only performed on those samples that meet specific criteria set forth by [facility]. Hemoglobin Auto test strip (U) [Mass/Vol] [...] 2+ mg/dL Invalid Interpretation Code Negativemg /dL [facility] UA Auto SS pH (U) 6.0 *NA* (10/08/23 2:00 PM) Invalid Interpretation Code 5.0 - 9.0 [facility] UA Auto SS Protein Ql (U) 2+ mg/dL Invalid Interpretation Code Negativemg /dL [facility] UA Auto SS RBC Ql (U) >75 graded/HPF Invalid Interpretation Code 0-3graded/ HPF [facility] UA Auto SS Specific gravity (U) [Rel density] 1.018 *NA* (10/08/23 2:00 PM) Invalid Interpretation Code 1.005 - 1.030 [facility] UA Auto SS WBC Auto (Urine sed) [#/Area] >75 graded/HPF Invalid Interpretation Code 0-5graded/ HPF [facility] UA Auto SS URINALYSISOrdered By: Rigo clemente on 10-08-2023 UA Spec Desc Frankel (10/08/23 2:00 PM) Normal [facility] UA Auto SS Work Phone: XR Forearm [...] mGy = na DAP = na Normal [facility] XR Hip 2-3 Views Right + Pel [...] Anderson FINAL REPORT Dictated: 10/08/2023 1:21 pm Talon Rose DO Signed (Electronic Signature): 10/08/2023 1:21 pm Signed by: Talon Rose DO Transcribed by: RICHARD Technologist: VERONICA Technical Comments Radiation Dose: Ka,r in mGy = na DAP = na Normal [facility] XR Wrist 3+ Views Righton XR Wrist [...] mGy = na DAP = na Normal [facility] eGFRon 10-08-2023 eGFR 99 mL/min/1.73 m2 Normal >=59 [facility] Comment on above: Order Comment: Order added by Discern Expert. Performed By: #### 1 [id number] #### [address] [address] BNPon 08-19-2022 Natriuretic peptide B (Bld) [Mass/Vol] 233.0 pg/mL Normal <=900.0 [facility] Comment on above: Performed By: #### L IVER #### [facility] [address] [place] [address] Dr. Shine Del Rosario CARDIAC WILD ADMITon 023 CK [Catalytic activity/Vol] 59 U/L Normal 26-192 [facility] Comment on above: Performed By: #### L IVER #### [facility] [address] [place] [address] Dr. Shine Del Rosario CK.MB [Mass/Vol] ng/mL Normal <=3.60 [facility] Comment on above: Performed By: #### L IVER #### [facility] [address] [place] [address] Dr. Shine Del Rosario HSTROP 6.4 pg/mL Normal 4.0-51.3 [facility] Comment on above: Result Comment: CUT- OFF POINTS HAVE BEEN ESTABLISHED BASED ON THE FOURTH UNIVERSAL DEFINITIONS OF MYOCARDIAL INFARCTION. THE UPPER REFERENCE LIMIT (URL) OF TROPONIN, DEFINED THE 99TH PERCENTILE OF cTnI DISTRIBUTION IN A REFERENCE POPULATION, HAS BEEN CONFIRMED THE DECISION THRESHOLD FOR [place] DIAGNOSIS. Performed By: #### L IVER #### [facility] [address] [place] [address] Dr. Shine Del Rosario YANG 70 ng/mL Normal 9-82 [facility] Comment on above: Performed By: #### L IVER #### [facility] [address] [place] [address] Dr. Shine Del Rosario CBC W MANUAL DIFFon 08-20-19 23 ATYPICAL LYMPH # Normal [facility] Comment on above: Performed By: #### P HVEN #### [facility] [address] [place] [address] Dr. Shine Del Rosario ATYPICAL LYMPH % Normal [facility] Comment on above: Performed By: #### P HVEN #### [facility] [address] [place] [address] Dr. Shine Del Rosario BAND # Normal 0.0-0.3 [facility] Comment on above: Performed By: #### P HVEN #### [facility] [address] [place] [address] [address] Shine Del Rosario BAND % Normal 0-5 [facility] Comment on above: Performed By: #### P HVEN #### [facility] [address] [place] [address] Dr. Shine Del Rosario BASOM # 0.00 103/ul Normal 0.00-0.10 [facility] Comment on above: Performed By: #### P HVEN #### [facility] [address] [place] [address] Dr. Shine Del Rosario BASOM % 0.0 % Critically low 0.2-2.0 [facility] Comment on above: Performed By: #### P HVEN #### [facility] [address] [place] [address] Dr. Shine Del Rosario BLAST # Normal [facility] Comment on above: Performed By: #### P HVEN #### [facility] [address] [address] [address] Shine Del Rosario BLAST % Normal [facility] Comment on above: Performed By: #### P HVEN #### [facility] [address] [place] [address] Dr. Shine Del Rosario CORRECTED WBC Normal 4.0-11.0 [facility] Comment on above: Performed By: #### P HVEN #### [facility] [address] [address] [address] Shine Del Rosario EOS # 0.50 103/ul Normal 0.00-0.70 [facility] Comment on above: Performed By: #### P HVEN #### [facility] [address] [place] [address] Dr. Shine Del Rosario EOS% 7.0 % Normal 0.9-7.0 [facility] Comment on above: Performed By: #### P HVEN #### [facility] [address] [place] [address] Dr. Shine Del Rosario HCT 37.0 % Normal 36.0-48.0 [facility] Comment on above: Performed By: #### P HVEN #### [facility] [address] [address] [address] Shine Del Rosario HGB 12.3 g/dl Normal 12.0-16.0 [facility] Comment on above: Performed By: #### P HVEN #### [facility] [address] [address] [address] Shine Del Rosario LYMPHM # 0.58 103/ul Critically low 1.20-3.80 [facility] Comment on above: Performed By: #### P HVEN #### [facility] [address] [place] [address] Dr. Shine Del Rosario LYMPHM% 8.0 % Critically low 20.5-60.0 [facility] Comment on above: Performed By: #### P HVEN #### [facility] [address] [place] [address] Dr. Shine Del Rosario MCH 32.5 pg Normal 26.7-34.0 [facility] Comment on above: Performed By: #### P HVEN #### [facility] [address] [place] [address] Dr. Shine Del Rosario MCHC 33.2 g/dl Normal 29.9-35.2 [facility] Comment on above: Performed By: #### P HVEN #### [facility] [address] [place] [address] Dr. Shine Del Rosario MCV 97.6 fL Normal 81.0-99.0 [facility] Comment on above: Performed By: #### P HVEN #### [facility] [address] [place] [address] Dr. Shine Del Rosario METAMYELOCYTE # Normal [facility] Comment on above: Performed By: #### P HVEN #### [facility] [address] [place] [address] Dr. Shine Del Rosario METAMYELOCYTE % Normal [facility] Comment on above: Performed By: #### P HVEN #### [facility] [address] [place] [address] Dr. Shine Del Rosario MONOM# 0.86 103/ul Critically high 0.30-0.80 [facility] Comment on above: Performed By: #### P HVEN #### [facility] [address] [address] [address] Shine Del Rosario MONOM% 12.0 % Normal 1.7-12.0 [facility] Comment on above: Performed By: #### P HVEN #### [facility] [address] [place] [address] Dr. Shine Del Rosario MPV 8.9 fL Critically low 9.5-13.5 [facility] Comment on above: Performed By: #### P HVEN #### [facility] [address] [place] [address] Dr. Shine Del Rosario MYELOCYTE # Normal [facility] Comment on above: Performed By: #### P HVEN #### [facility] [address] [place] [address] Dr. Shine Del Rosario MYELOCYTE % Normal [facility] Comment on above: Performed By: #### P HVEN #### [facility] [address] [place] [address] Dr. Shine Del Rosario NRBC Normal [facility] Comment on above: Performed By: #### P HVEN #### [facility] [address] [place] [address] Dr. Shine Del Rosario PLT 288 103/ul Normal 150-450 [facility] Comment on above: Performed By: #### P HVEN #### [facility] [address] [place] [address] Dr. Shine Del Rosario RBC 3.79 106/ul Critically low 4.20-5.40 [facility] Comment on above: Performed By: #### P HVEN #### [facility] [address] [place] [address] Dr. Shine Del Rosario RDW 11.3 % Normal 11.0-15.0 [facility] Comment on above: Performed By: #### P HVEN #### [facility] [address] [place] [address] Dr. Shine Del Rosario SEG # 5.26 103/ul Normal 1.40-6.50 [facility] Comment on above: Performed By: #### P HVEN #### [facility] [address] [place] [address] Dr. Shine Del Rosario SEG % 73.0 % Normal 43.0-75.0 [facility] Comment on above: Performed By: #### P HVEN #### [facility] [address] [place] [address] Dr. Shine Del Rosario WBC 7.2 103/ul Normal 4.0-11.0 [facility] Comment on above: Performed By: #### P HVEN #### [facility] [address] [place] [address] Dr. Shine Del Rosario PROF 14(COMP METB)on 023 Albumin [Mass/Vol] 3.4 g/dL Normal 3.4-5.0 [facility] Comment on above: Performed By: #### L IVER #### [facility] [address] [place] [address] Dr. Shine Del Rosario Albumin/Globulin [Mass ratio] 0.9 {ratio} Normal [facility] Comment on above: Performed By: #### L IVER #### [facility] [address] [place] [address] Dr. Shine Del Rosario ALP [Catalytic activity/Vol] 152 U/L Critically high 46-116 [facility] Comment on above: Performed By: #### L IVER #### [facility] [address] [place] [address] Dr. Shine Del Rosario ALT [Catalytic activity/Vol] 126 U/L Critically high 14-59 [facility] Comment on above: Performed By: #### L IVER #### [facility] [address] [place] [address] Dr. Shine Del Rosario Anion gap [Moles/Vol] 15.5 mmol/L Normal [facility] Comment on above: Performed By: #### L IVER #### [facility] [address] [place] [address] Dr. Shine Del Rosario AST [Catalytic activity/Vol] 158 U/L Critically high 15-37 [facility] Comment on above: Performed By: #### L IVER #### [facility] [address] [address] [address] Shine Del Rosario Bilirubin [Mass/Vol] 1.3 mg/dL Critically high 0.2-1.0 [facility] Comment on above: Performed By: #### L IVER #### [facility] [address] [address] [address] Shine Del Rosario Calcium [Mass/Vol] 9.5 mg/dL Normal 8.5-10.1 [facility] Comment on above: Performed By: #### L IVER #### [facility] [address] [place] [address] Dr. Shine Del Rosario Chloride [Moles/Vol] 95 mmol/L Critically low 98-107 [facility] Comment on above: Performed By: #### L IVER #### [facility] [address] [place] [address] Dr. Shine Del Rosario CO2 [Moles/Vol] 22.0 mmol/L Normal 21.0-32.0 [facility] Comment on above: Performed By: #### L IVER #### [facility] [address] [place] [address] Dr. Shine Del Rosario Creatinine [Mass/Vol] 0.65 mg/dL Normal 0.55-1.02 [facility] Comment on above: Performed By: #### L IVER #### [facility] [address] [place] [address] Dr. Shine Del Rosario EGFR-AF [place] >60 Normal >=60 [facility] Comment on above: Performed By: #### L IVER #### [facility] [address] [place] [address] Dr. Shine Del Rosario EGFR-NON AF [place] >60 Normal >=60 [facility] Comment on above: Performed By: #### L IVER #### [facility] [address] [place] [address] Dr. Shine Del Rosario Globulin (S) [Mass/Vol] 3.9 g/dL Normal [facility] Comment on above: Performed By: #### L IVER #### [facility] [address] [address] [address] Shine Del Rosario Glucose [Mass/Vol] 97 mg/dL Normal 74-106 [facility] Comment on above: Performed By: #### L IVER #### [facility] [address] [address] [address] Shine Del Rosario Potassium [Moles/Vol] 4.5 mmol/L Normal 3.5-5.1 [facility] Comment on above: Performed By: #### L IVER #### [facility] [address] [address] [address] Shine Del Rosario Protein [Mass/Vol] 7.3 g/dL Normal 6.4-8.2 [facility] Comment on above: Performed By: #### L IVER #### [facility] [address] [address] [address] Shine Del Rosario Sodium [Moles/Vol] 128 mmol/L Critically low 136-145 [facility] Comment on above: Performed By: #### L IVER #### [facility] [address] [address] [address] Shine Del Rosario Urea nitrogen [Mass/Vol] 5.0 mg/dL Critically low 7.0-18.0 [facility] Comment on above: Performed By: #### L IVER #### [facility] [address] [address] [address] Shine Del Rosario Urea nitrogen/Creatinine [Mass ratio] 7.7 mg/mg Normal [facility] Comment on above: Performed By: #### L IVER #### [facility] [address] [address] [address] Shine Del Rosario XR CHEST 1 [...] BEBETO PUTNAM Date: 2022-08-19 10:32 Normal [facility] BNPon 05-10-2022 Natriuretic peptide B (Bld) [Mass/Vol] 952.0 pg/mL Critically high <=900.0 [facility] Comment on above: Performed By: #### L IVER #### [facility] [address] [place] [address] Dr. Shine Del Rosario CBC AUTO DIFFon 05-10-2022 BASO # 0.1 103/ul Normal 0.0-0.1 [facility] Comment on above: Performed By: #### P TT, PT #### [facility] [address] [place] [address] Dr. Shine Del Rosario Basophils/100 WBC (Bld) 0.7 % Normal 0.2-2.0 [facility] Comment on above: Performed By: #### P TT, PT #### [facility] [address] [place] [address] Dr. Shine Del Rosario EO # 0.2 103/ul Normal 0.0-0.7 [facility] Comment on above: Performed By: #### P TT, PT #### [facility] [address] [place] [address] Dr. Shine Del Rosario Eosinophils/100 WBC (Bld) 2.1 % Normal 0.9-7.0 [facility] Comment on above: Performed By: #### P TT, PT #### [facility] [address] [place] [address] Dr. Shine Del Rosario Erythrocyte distribution width (RBC) [Ratio] 12.6 % Normal 11.0-15.0 [facility] Comment on above: Performed By: #### P TT, PT #### [facility] [address] [place] [address] Dr. Shine Del Rosario Hematocrit (Bld) [Volume fraction] 35.0 % Critically low 36.0-48.0 [facility] Comment on above: Performed By: #### P TT, PT #### [facility] [address] [place] [address] Dr. Shine Del Rosario Hemoglobin (Bld) [Mass/Vol] 11.8 g/dL Critically low 12.0-16.0 [facility] Comment on above: Performed By: #### P TT, PT #### [facility] [address] [place] [address] Dr. Shine Del Rosario IG # 0.04 10e3/ul Critically high 0.00-0.03 [facility] Comment on above: Performed By: #### P TT, PT #### [facility] [address] [place] [address] Dr. Shine Del Rosario IG % 0.5 % Normal 0.0-0.5 [facility] Comment on above: Performed By: #### P TT, PT #### [facility] [address] [place] [address] Dr. Shine Del Rosario LYMPH # 1.2 103/ul Normal 1.2-3.8 [facility] Comment on above: Performed By: #### P TT, PT #### [facility] [address] [place] [address] Dr. Shine Del Rosario Lymphocytes/100 WBC (Bld) 14.2 % Critically low 20.5-60.0 [facility] Comment on above: Performed By: #### P TT, PT #### [facility] [address] [place] [address] Dr. Shine Del Rosario MANUAL DIFF REQ NO Normal [facility] Comment on above: Performed By: #### P TT, PT #### [facility] [address] [place] [address] Dr. Shine Del Rosario MCH (RBC) [Entitic mass] 33.2 pg Normal 26.7-34.0 [facility] Comment on above: Performed By: #### P TT, PT #### [facility] [address] [place] [address] Dr. Shine Del Rosario MCHC (RBC) [Mass/Vol] 33.7 g/dL Normal 29.9-35.2 [facility] Comment on above: Performed By: #### P TT, PT #### [facility] [address] [place] [address] Dr. Shine Del Rosario MCV (RBC) [Entitic vol] 98.6 fL Normal 81.0-99.0 [facility] Comment on above: Performed By: #### P TT, PT #### [facility] [address] [place] [address] Dr. Shine Del Rosario MONO # 0.8 103/ul Normal 0.3-0.8 [facility] Comment on above: Performed By: #### P TT, PT #### [facility] [address] [place] [address] Dr. Shine Del Rosario Monocytes/100 WBC (Bld) 9.1 % Normal 1.7-12.0 [facility] Comment on above: Performed By: #### P TT, PT #### [facility] [address] [place] [address] Dr. Shine Del Rosario NEUT # 6.4 103/ul Normal 1.4-6.5 [facility] Comment on above: Performed By: #### P TT, PT #### [facility] [address] [place] [address] Dr. Shine Del Rosario Neutrophils/100 WBC (Bld) 73.4 % Normal 43.0-75.0 [facility] Comment on above: Performed By: #### P TT, PT #### [facility] [address] [place] [address] Dr. Shine Del Rosario Platelet mean volume (Bld) [Entitic vol] 8.7 fL Critically low 9.5-13.5 [facility] Comment on above: Performed By: #### P TT, PT #### [facility] [address] [place] [address] Dr. Shine Del Rosario PLT 394 103/ul Normal 150-450 [facility] Comment on above: Performed By: #### P TT, PT #### [facility] [address] [place] [address] Dr. Shine Del Rosario RBC 3.55 106/ul Critically low 4.20-5.40 [facility] Comment on above: Performed By: #### P TT, PT #### [facility] [address] [address] [address] Shine Del Rosario WBC 8.7 103/ul Normal 4.0-11.0 [facility] Comment on above: Performed By: #### P TT, PT #### [facility] [address] [place] [address] Dr. Shine Del Rosario PROF 14(COMP METB)on 022 Albumin [Mass/Vol] 3.1 g/dL Critically low 3.4-5.0 [facility] Comment on above: Performed By: #### L IVER #### [facility] [address] [place] [address] Dr. Shine Del Rosario Albumin/Globulin [Mass ratio] 0.8 {ratio} Normal [facility] Comment on above: Performed By: #### L IVER #### [facility] [address] [place] [address] Dr. Shine Del Rosario ALP [Catalytic activity/Vol] 167 U/L Critically high 46-116 [facility] Comment on above: Performed By: #### L IVER #### [facility] [address] [place] [address] Dr. Shine Del Rosario ALT [Catalytic activity/Vol] 50 U/L Normal 14-59 [facility] Comment on above: Performed By: #### L IVER #### [facility] [address] [place] [address] Dr. Shine Del Rosario Anion gap [Moles/Vol] 11.6 mmol/L Normal [facility] Comment on above: Performed By: #### L IVER #### [facility] [address] [place] [address] Dr. Shine Del Rosario AST [Catalytic activity/Vol] 46 U/L Critically high 15-37 [facility] Comment on above: Performed By: #### L IVER #### [facility] [address] [place] [address] Dr. Shine Del Rosario Bilirubin [Mass/Vol] 0.7 mg/dL Normal 0.2-1.0 [facility] Comment on above: Performed By: #### L IVER #### [facility] [address] [address] [address] Shine Del Rosario Calcium [Mass/Vol] 9.0 mg/dL Normal 8.5-10.1 [facility] Comment on above: Performed By: #### L IVER #### [facility] [address] [place] [address] Dr. Shine Del Rosario Chloride [Moles/Vol] 100 mmol/L Normal 98-107 [facility] Comment on above: Performed By: #### L IVER #### [facility] [address] [place] [address] Dr. Shine Del Rosario CO2 [Moles/Vol] 24.7 mmol/L Normal 21.0-32.0 [facility] Comment on above: Performed By: #### L IVER #### [facility] [address] [place] [address] Dr. Shine Del Rosario Creatinine [Mass/Vol] 0.61 mg/dL Normal 0.55-1.02 [facility] Comment on above: Performed By: #### L IVER #### [facility] [address] [place] [address] Dr. Shine Del Rosario EGFR-AF [place] >60 Normal >=60 [facility] Comment on above: Performed By: #### L IVER #### [facility] [address] [place] [address] Dr. Shine Del Rosario EGFR-NON AF [place] >60 Normal >=60 [facility] Comment on above: Performed By: #### L IVER #### [facility] [address] [place] [address] Dr. Shine Del Rosario Globulin (S) [Mass/Vol] 3.7 g/dL Normal [facility] Comment on above: Performed By: #### L IVER #### [facility] [address] [place] [address] Dr. Shine Del Rosario Glucose [Mass/Vol] 98 mg/dL Normal 74-106 [facility] Comment on above: Performed By: #### L IVER #### [facility] [address] [place] [address] Dr. Shine Del Rosario Potassium [Moles/Vol] 4.3 mmol/L Normal 3.5-5.1 [facility] Comment on above: Performed By: #### L IVER #### [facility] [address] [place] [address] Dr. Shine Del Rosario Protein [Mass/Vol] 6.8 g/dL Normal 6.4-8.2 [facility] Comment on above: Performed By: #### L IVER #### [facility] [address] [place] [address] Dr. Shine Del Rosario Sodium [Moles/Vol] 132 mmol/L Critically low 136-145 [facility] Comment on above: Performed By: #### L IVER #### [facility] [address] [place] [address] Dr. Shine Del Rosario Urea nitrogen [Mass/Vol] 6.0 mg/dL Critically low 7.0-18.0 [facility] Comment on above: Performed By: #### L IVER #### [facility] [address] [place] [address] Dr. Shine Del Rosario Urea nitrogen/Creatinine [Mass ratio] 9.8 mg/mg Normal [facility] Comment on above: Performed By: #### L IVER #### [facility] [address] [place] [address] Dr. Shine Del Rosario PROTIMEon 05-10-2022 INR Coag (PPP) [Relative time] 0.96 {INR} Normal [facility] Comment on above: Performed By: #### P TT, PT #### [facility] [address] [place] [address] Dr. Shine Del Rosario INR GUIDELINES SEE BELOW Normal [facility] Comment on above: Result Comment: JUDY RED INR: 2.0 - 3.0 CONDITIONS NOT LISTED BELOW 2.5 - 3.5 FOR PROSTHETIC HEART VALVE REPLACEMENT 2.5 - 3.5 RECURRENT THROMBOSIS Performed By: #### P TT, PT #### [facility] [address] [place] [address] Dr. Shine Del Rosario PT Coag (PPP) [Time] 10.4 s Normal 9.0-11.6 [facility] Comment on above: Performed By: #### P TT, PT #### [facility] [address] [place] [address] Dr. Shine Del Rosario PTTon 05-10-2022 aPTT Coag (Bld) [Time] 42.0 s Critically high 22.3-36.2 [facility] Comment on above: Performed By: #### P TT, PT #### [facility] [address] [place] [address] Dr. Shine Del Rosario US JAC DOP [...] PAWAN GEORGE Date: 2022-05-10 13:11 Normal [facility] BNPon 01-19-2022 Natriuretic peptide B (Bld) [Mass/Vol] 175.0 pg/mL Normal <=900.0 [facility] Comment on above: Performed By: #### C MP, BNP, HSTROPN #### [facility] [address] [place] [address] Dr. Shine Del Rosario CBC AUTO DIFFon 01-19-2022 BASO # 0.1 103/ul Normal 0.0-0.1 [facility] Comment on above: Performed By: #### P TT, PT #### [facility] [address] [place] [address] Dr. Shine Del Rosario Basophils/100 WBC (Bld) 0.9 % Normal 0.2-2.0 [facility] Comment on above: Performed By: #### P TT, PT #### [facility] [address] [place] [address] Dr. Shine Del Rosario EO # 0.9 103/ul Critically high 0.0-0.7 [facility] Comment on above: Performed By: #### P TT, PT #### [facility] [address] [place] [address] Dr. Shine Del Rosario Eosinophils/100 WBC (Bld) 10.6 % Critically high 0.9-7.0 [facility] Comment on above: Performed By: #### P TT, PT #### [facility] [address] [place] [address] Dr. Shine Del Rosario Erythrocyte distribution width (RBC) [Ratio] 11.4 % Normal 11.0-15.0 [facility] Comment on above: Performed By: #### P TT, PT #### [facility] [address] [place] [address] Dr. Shine Del Rosario Hematocrit (Bld) [Volume fraction] 36.9 % Normal 36.0-48.0 [facility] Comment on above: Performed By: #### P TT, PT #### [facility] [address] [place] [address] Dr. Shine Del Rosario Hemoglobin (Bld) [Mass/Vol] 12.1 g/dL Normal 12.0-16.0 [facility] Comment on above: Performed By: #### P TT, PT #### [facility] [address] [place] [address] Dr. Shine Del Rosario IG # 0.04 10e3/ul Critically high 0.00-0.03 [facility] Comment on above: Performed By: #### P TT, PT #### [facility] [address] [place] [address] Dr. Shine Del Rosario IG % 0.5 % Normal 0.0-0.5 [facility] Comment on above: Performed By: #### P TT, PT #### [facility] [address] [place] [address] Dr. Shine Del Rosario LYMPH # 1.7 103/ul Normal 1.2-3.8 [facility] Comment on above: Performed By: #### P TT, PT #### [facility] [address] [place] [address] Dr. Shine Del Rosario Lymphocytes/100 WBC (Bld) 20.4 % Critically low 20.5-60.0 [facility] Comment on above: Performed By: #### P TT, PT #### [facility] [address] [place] [address] Dr. Shine Del Rosario MANUAL DIFF REQ NO Normal [facility] Comment on above: Performed By: #### P TT, PT #### [facility] [address] [place] [address] Dr. Shine Del Rosario MCH (RBC) [Entitic mass] 32.8 pg Normal 26.7-34.0 [facility] Comment on above: Performed By: #### P TT, PT #### [facility] [address] [place] [address] Dr. Shine Del Rosario MCHC (RBC) [Mass/Vol] 32.8 g/dL Normal 29.9-35.2 [facility] Comment on above: Performed By: #### P TT, PT #### [facility] [address] [place] [address] Dr. Shine Del Rosario MCV (RBC) [Entitic vol] 100.0 fL Critically high 81.0-99.0 [facility] Comment on above: Performed By: #### P TT, PT #### [facility] [address] [place] [address] Dr. Shine Del Rosario MONO # 0.8 103/ul Normal 0.3-0.8 [facility] Comment on above: Performed By: #### P TT, PT #### [facility] [address] [place] [address] Dr. Shine Del Rosario Monocytes/100 WBC (Bld) 9.6 % Normal 1.7-12.0 [facility] Comment on above: Performed By: #### P TT, PT #### [facility] [address] [place] [address] Dr. Shine Del Rosario NEUT # 4.8 103/ul Normal 1.4-6.5 [facility] Comment on above: Performed By: #### P TT, PT #### [facility] [address] [place] [address] Dr. Shine Del Rosario Neutrophils/100 WBC (Bld) 58.0 % Normal 43.0-75.0 [facility] Comment on above: Performed By: #### P TT, PT #### [facility] [address] [address] [address] Shine Del Rosario Platelet mean volume (Bld) [Entitic vol] 8.9 fL Critically low 9.5-13.5 [facility] Comment on above: Performed By: #### P TT, PT #### [facility] [address] [address] [address] Shine Del Rosario PLT 336 103/ul Normal 150-450 [facility] Comment on above: Performed By: #### P TT, PT #### [facility] [address] [address] [address] Shine Del Rosario RBC 3.69 106/ul Critically low 4.20-5.40 [facility] Comment on above: Performed By: #### P TT, PT #### [facility] [address] [place] [address] Dr. Shine Del Rosario WBC 8.2 103/ul Normal 4.0-11.0 [facility] Comment on above: Performed By: #### P TT, PT #### [facility] [address] [address] [address] Shine Del Rosario Covid-19 PCR ([facility])on SARS-CoV-2 (COVID-19) RNA LYLA+probe Ql (Unsp spec) Not detected Normal NOT DETECTED [facility] Comment on above: Result Comment: When diagnostic [...] for this test is supported by the [place] of [employer] and Human Service's declaration that [...] used). Performed By: #### P HVEN #### [facility] [address] [place] [address] Dr. Shine Del Rosario LACTATE/LACTIC ACIDon 2021 Lactate [Moles/Vol] 0.9 mmol/L Normal 0.4-1.9 [facility] Comment on above: Performed By: #### P TT, PT #### [facility] [address] [place] [address] Dr. Shine Del Rosario PH VENOUS BLOODon 01-19-2022 PCO2 VENOUS 43.6 mmHg Normal 40.0-52.0 [facility] Comment on above: Performed By: #### P HVEN #### [facility] [address] [place] [address] Dr. Shine Del Rosario pH VENOUS 7.360 Normal 7.330-7.43 0 [facility] Comment on above: Performed By: #### P HVEN #### [facility] [address] [place] [address] Dr. Shine Del Rosario PROF 14(COMP METB)on 022 Albumin [Mass/Vol] 3.3 g/dL Critically low 3.4-5.0 [facility] Comment on above: Performed By: #### C MP, BNP, HSTROPN #### [facility] [address] [place] [address] Dr. Shine Del Rosario Albumin/Globulin [Mass ratio] 0.8 {ratio} Normal [facility] Comment on above: Performed By: #### C MP, BNP, HSTROPN #### [facility] [address] [place] [address] Dr. Shine Del Rosario ALP [Catalytic activity/Vol] 158 U/L Critically high 46-116 [facility] Comment on above: Performed By: #### C MP, BNP, HSTROPN #### [facility] [address] [place] [address] Dr. Shine Del Rosario ALT [Catalytic activity/Vol] 95 U/L Critically high 14-59 [facility] Comment on above: Performed By: #### C MP, BNP, HSTROPN #### [facility] [address] [address] [address] Shine Del Rosario Anion gap [Moles/Vol] 10.7 mmol/L Normal [facility] Comment on above: Performed By: #### C MP, BNP, HSTROPN #### [facility] [address] [place] [address] Dr. Shine Del Rosario AST [Catalytic activity/Vol] 118 U/L Critically high 15-37 [facility] Comment on above: Performed By: #### C MP, BNP, HSTROPN #### [facility] [address] [place] [address] Dr. Shine Del Rosario Bilirubin [Mass/Vol] 0.8 mg/dL Normal 0.2-1.0 [facility] Comment on above: Performed By: #### C MP, BNP, HSTROPN #### [facility] [address] [place] [address] Dr. Shine Del Rosario Calcium [Mass/Vol] 8.8 mg/dL Normal 8.5-10.1 [facility] Comment on above: Performed By: #### C MP, BNP, HSTROPN #### [facility] [address] [place] [address] Dr. Shine Del Rosario Chloride [Moles/Vol] 96 mmol/L Critically low 98-107 [facility] Comment on above: Performed By: #### C MP, BNP, HSTROPN #### [facility] [address] [place] [address] Dr. Shine Del Rosario CO2 [Moles/Vol] 24.3 mmol/L Normal 21.0-32.0 [facility] Comment on above: Performed By: #### C MP, BNP, HSTROPN #### [facility] [address] [place] [address] Dr. Shine Del Rosario Creatinine [Mass/Vol] 0.69 mg/dL Normal 0.55-1.02 [facility] Comment on above: Performed By: #### C MP, BNP, HSTROPN #### [facility] [address] [address] [address] Shine Del Rosario EGFR-AF [place] >60 Normal >=60 [facility] Comment on above: Performed By: #### C MP, BNP, HSTROPN #### [facility] [address] [address] [address] Shine Del Rosario EGFR-NON AF [place] >60 Normal >=60 [facility] Comment on above: Performed By: #### C MP, BNP, HSTROPN #### [facility] [address] [address] [address] Shine Del Rosario Globulin (S) [Mass/Vol] 4.1 g/dL Normal [facility] Comment on above: Performed By: #### C MP, BNP, HSTROPN #### [facility] [address] [address] [address] Shine Del Rosario Glucose [Mass/Vol] 87 mg/dL Normal 74-106 [facility] Comment on above: Performed By: #### C MP, BNP, HSTROPN #### [facility] [address] [address] [address] Shine Del Rosario Potassium [Moles/Vol] 4.0 mmol/L Normal 3.5-5.1 [facility] Comment on above: Performed By: #### C MP, BNP, HSTROPN #### [facility] [address] [address] [address] Shine Del Rosario Protein [Mass/Vol] 7.4 g/dL Normal 6.4-8.2 [facility] Comment on above: Performed By: #### C MP, BNP, HSTROPN #### [facility] [address] [address] [address] Shine Del Rosario Sodium [Moles/Vol] 127 mmol/L Critically low 136-145 [facility] Comment on above: Performed By: #### C MP, BNP, HSTROPN #### [facility] [address] [address] [address] Shine Del Rosario Urea nitrogen [Mass/Vol] 4.0 mg/dL Critically low 7.0-18.0 [facility] Comment on above: Performed By: #### C MP, BNP, HSTROPN #### [facility] [address] [place] [address] Dr. Shine Del Rosario Urea nitrogen/Creatinine [Mass ratio] 5.8 mg/mg Normal [facility] Comment on above: Performed By: #### C MP, BNP, HSTROPN #### [facility] [address] [place] [address] Dr. Shine Del Rosario PROTIMEon 01-19-2022 INR Coag (PPP) [Relative time] 0.97 {INR} Normal [facility] Comment on above: Performed By: #### B MP #### [facility] [address] [place] [address] Dr. Shine Del Rosario INR GUIDELINES SEE BELOW Normal [facility] Comment on above: Result Comment: JUDY RED INR: 2.0 - 3.0 CONDITIONS NOT LISTED BELOW 2.5 - 3.5 FOR PROSTHETIC HEART VALVE REPLACEMENT 2.5 - 3.5 RECURRENT THROMBOSIS Performed By: #### B MP #### [facility] [address] [place] [address] Dr. Shine Del Rosario PT Coag (PPP) [Time] 10.5 s Normal 9.0-11.6 [facility] Comment on above: Performed By: #### B MP #### [facility] [address] [place] [address] Dr. Shine Del Rosario PTTon 01-19-2022 aPTT Coag (Bld) [Time] 45.8 s Critically high 22.3-36.2 [facility] Comment on above: Performed By: #### B MP #### [facility] [address] [place] [address] Dr. Shine Del Rosario TROPONIN, HIGH SENSITIVITYon 01-19-2022 HSTROP 11.4 pg/mL Normal 4.0-51.3 [facility] Comment on above: Result Comment: CUT- OFF POINTS HAVE BEEN ESTABLISHED BASED ON THE FOURTH UNIVERSAL DEFINITIONS OF MYOCARDIAL INFARCTION. THE UPPER REFERENCE LIMIT (URL) OF TROPONIN, DEFINED THE 99TH PERCENTILE OF cTnI DISTRIBUTION IN A REFERENCE POPULATION, HAS BEEN CONFIRMED THE DECISION THRESHOLD FOR [place] DIAGNOSIS. Performed By: #### P HVEN #### [facility] [address] [address] [address] Shine Del Rosario XR CHEST 1 [...] PAWAN BRUNNER Date: 2022-01-19 19:05 Normal [facility] CBC AUTO DIFFon 10-18-2021 BASO # 0.0 103/ul Normal 0.0-0.1 [facility] Comment on above: Performed By: #### L IVER #### [facility] [address] [address] [address] Shine Del Rosario Basophils/100 WBC (Bld) 0.7 % Normal 0.2-2.0 [facility] Comment on above: Performed By: #### L IVER #### [facility] [address] [address] [address] Shine Del Rosario EO # 0.1 103/ul Normal 0.0-0.7 [facility] Comment on above: Performed By: #### L IVER #### [facility] [address] [address] [address] Shine Del Rosario Eosinophils/100 WBC (Bld) 1.1 % Normal 0.9-7.0 [facility] Comment on above: Performed By: #### L IVER #### [facility] [address] [address] [address] Shine Del Rosario Erythrocyte distribution width (RBC) [Ratio] 16.3 % Critically high 11.0-15.0 [facility] Comment on above: Performed By: #### L IVER #### [facility] [address] [address] [address] Shine Del Rosario Hematocrit (Bld) [Volume fraction] 34.0 % Critically low 36.0-48.0 [facility] Comment on above: Performed By: #### L IVER #### [facility] [address] [place] [address] Dr. Shine Del Rosario Hemoglobin (Bld) [Mass/Vol] 10.8 g/dL Critically low 12.0-16.0 [facility] Comment on above: Performed By: #### L IVER #### [facility] [address] [place] [address] Dr. Shine Del Rosario IG # 0.06 10e3/ul Critically high 0.00-0.03 [facility] Comment on above: Performed By: #### L IVER #### [facility] [address] [place] [address] Dr. Shine Del Rosario IG % 1.1 % Critically high 0.0-0.5 [facility] Comment on above: Performed By: #### L IVER #### [facility] [address] [place] [address] Dr. Shine Del Rosario LYMPH # 1.1 103/ul Critically low 1.2-3.8 [facility] Comment on above: Performed By: #### L IVER #### [facility] [address] [place] [address] Dr. Shine Del Rosario Lymphocytes/100 WBC (Bld) 19.5 % Critically low 20.5-60.0 [facility] Comment on above: Performed By: #### L IVER #### [facility] [address] [place] [address] Dr. Shine Del Rosario MANUAL DIFF REQ NO Normal [facility] Comment on above: Performed By: #### L IVER #### [facility] [address] [place] [address] Dr. Shine Del Rosario MCH (RBC) [Entitic mass] 32.1 pg Normal 26.7-34.0 [facility] Comment on above: Performed By: #### L IVER #### [facility] [address] [place] [address] Dr. Shine Del Rosario MCHC (RBC) [Mass/Vol] 31.8 g/dL Normal 29.9-35.2 [facility] Comment on above: Performed By: #### L IVER #### [facility] [address] [place] [address] Dr. Shine Del Rosario MCV (RBC) [Entitic vol] 101.2 fL Critically high 81.0-99.0 [facility] Comment on above: Performed By: #### L IVER #### [facility] [address] [place] [address] Dr. Shine Del Rosario MONO # 0.4 103/ul Normal 0.3-0.8 [facility] Comment on above: Performed By: #### L IVER #### [facility] [address] [place] [address] Dr. Shine Del Rosario Monocytes/100 WBC (Bld) 6.8 % Normal 1.7-12.0 [facility] Comment on above: Performed By: #### L IVER #### [facility] [address] [place] [address] Dr. Shine Del Rosario NEUT # 4.0 103/ul Normal 1.4-6.5 [facility] Comment on above: Performed By: #### L IVER #### [facility] [address] [place] [address] Dr. Shine Del Rosario Neutrophils/100 WBC (Bld) 70.8 % Normal 43.0-75.0 [facility] Comment on above: Performed By: #### L IVER #### [facility] [address] [place] [address] Dr. Shine Del Rosario Platelet mean volume (Bld) [Entitic vol] 8.5 fL Critically low 9.5-13.5 [facility] Comment on above: Performed By: #### L IVER #### [facility] [address] [place] [address] Dr. Shine Del Rosario PLT 307 103/ul Normal 150-450 [facility] Comment on above: Performed By: #### L IVER #### [facility] [address] [place] [address] Dr. Shine Del Rosario RBC 3.36 106/ul Critically low 4.20-5.40 [facility] Comment on above: Performed By: #### L IVER #### [facility] [address] [place] [address] Dr. Shine Del Rosario WBC 5.6 103/ul Normal 4.0-11.0 [facility] Comment on above: Performed By: #### L IVER #### [facility] [address] [place] [address] Dr. Shine Del Rosario FERRITINon 10-18-2021 Ferritin [Mass/Vol] 2763.0 ng/mL Critically high 8.0-252.0 [facility] Comment on above: Performed By: #### F ERR #### [facility] [address] [place] [address] Dr. Shine Del Rosario PROF 14(COMP METB)on 022 Albumin [Mass/Vol] 2.9 g/dL Critically low 3.4-5.0 [facility] Comment on above: Performed By: #### B MP #### [facility] [address] [place] [address] Dr. Shine Del Rosario Albumin/Globulin [Mass ratio] 0.7 {ratio} Normal [facility] Comment on above: Performed By: #### B MP #### [facility] [address] [place] [address] Dr. Shine Del Rosario ALP [Catalytic activity/Vol] 209 U/L Critically high 46-116 [facility] Comment on above: Performed By: #### B MP #### [facility] [address] [place] [address] Dr. Shine Del Rosario ALT [Catalytic activity/Vol] 357 U/L Critically high 14-59 [facility] Comment on above: Performed By: #### B MP #### [facility] [address] [place] [address] Dr. Shine Del Rosario Anion gap [Moles/Vol] 11.0 mmol/L Normal [facility] Comment on above: Performed By: #### B MP #### [facility] [address] [place] [address] Dr. Shine Del Rosario AST [Catalytic activity/Vol] 610 U/L Critically high 15-37 [facility] Comment on above: Performed By: #### B MP #### [facility] [address] [address] [address] Shine Del Rosario Bilirubin [Mass/Vol] 0.8 mg/dL Normal 0.2-1.0 [facility] Comment on above: Performed By: #### B MP #### [facility] [address] [address] [address] Shine Del Rosario Calcium [Mass/Vol] 8.5 mg/dL Normal 8.5-10.1 [facility] Comment on above: Performed By: #### B MP #### [facility] [address] [address] [address] Shine Del Rosario Chloride [Moles/Vol] 99 mmol/L Normal 98-107 [facility] Comment on above: Performed By: #### B MP #### [facility] [address] [place] [address] Dr. Shine Del Rosario CO2 [Moles/Vol] 27.2 mmol/L Normal 21.0-32.0 [facility] Comment on above: Performed By: #### B MP #### [facility] [address] [place] [address] Dr. Shine Del Rosario Creatinine [Mass/Vol] 0.68 mg/dL Normal 0.55-1.02 [facility] Comment on above: Performed By: #### B MP #### [facility] [address] [place] [address] Dr. Shine Del Rosario EGFR-AF [place] >60 Normal >=60 [facility] Comment on above: Performed By: #### B MP #### [facility] [address] [address] [address] Shine Del Rosario EGFR-NON AF [place] >60 Normal >=60 [facility] Comment on above: Performed By: #### B MP #### [facility] [address] [address] [address] Shine Del Rosario Globulin (S) [Mass/Vol] 4.3 g/dL Normal [facility] Comment on above: Performed By: #### B MP #### [facility] [address] [address] [address] Shine Del Rosario Glucose [Mass/Vol] 118 mg/dL Critically high 74-[address] [facility] Comment on above: Performed By: #### B MP #### [facility] [address] [address] [address] Shine Del Rosario Potassium [Moles/Vol] 3.2 mmol/L Critically low 3.5-5.1 [facility] Comment on above: Performed By: #### B MP #### [facility] [address] [address] [address] Shine Del Rosario Protein [Mass/Vol] 7.2 g/dL Normal 6.4-8.2 [facility] Comment on above: Performed By: #### B MP #### [facility] [address] [address] [address] Shine Del Rosario Sodium [Moles/Vol] 134 mmol/L Critically low 136-145 Th [facility] Comment on above: Performed By: #### B MP #### [facility] [address] [address] [address] Shine Del Rosario Urea nitrogen [Mass/Vol] 5.0 mg/dL Critically low 7.0-18.0 [facility] Comment on above: Performed By: #### B MP #### [facility] [address] [address] [address] Shine Del Rosario Urea nitrogen/Creatinine [Mass ratio] 7.4 mg/mg Normal [facility] Comment on above: Performed By: #### B MP #### [facility] [address] [address] [address] Shine Del Rosario CBC AUTO DIFFon 09-27-2021 BASO # 0.1 103/ul Normal 0.0-0.1 [facility] Comment on above: Performed By: #### L IVER #### [facility] [address] [address] [address] Shine Del Rosario Basophils/100 WBC (Bld) 1.1 % Normal 0.2-2.0 [facility] Comment on above: Performed By: #### L IVNILAM #### [facility] [address] [place] [address] Dr. Shine Del Rosario EO # 0.2 103/ul Normal 0.0-0.7 [facility] Comment on above: Performed By: #### L IVER #### [facility] [address] [place] [address] Dr. Shine Del Rosario Eosinophils/100 WBC (Bld) 2.8 % Normal 0.9-7.0 [facility] Comment on above: Performed By: #### L IVER #### [facility] [address] [place] [address] Dr. Shine Del Rosario Erythrocyte distribution width (RBC) [Ratio] 12.7 % Normal 11.0-15.0 [facility] Comment on above: Performed By: #### L IVER #### [facility] [address] [place] [address] Dr. Shine Del Rosario Hematocrit (Bld) [Volume fraction] 30.0 % Critically low 36.0-48.0 [facility] Comment on above: Performed By: #### L IVER #### [facility] [address] [place] [address] Dr. Shine Del Rosario Hemoglobin (Bld) [Mass/Vol] 9.9 g/dL Critically low 12.0-16.0 [facility] Comment on above: Performed By: #### L IVER #### [facility] [address] [place] [address] Dr. Shine Del Rosario IG # 0.08 10e3/ul Critically high 0.00-0.03 [facility] Comment on above: Performed By: #### L IVER #### [facility] [address] [place] [address] Dr. Shine Del Rosario IG % 1.5 % Critically high 0.0-0.5 [facility] Comment on above: Performed By: #### L IVER #### [facility] [address] [place] [address] Dr. Shine Del Rosario LYMPH # 1.5 103/ul Normal 1.2-3.8 [facility] Comment on above: Performed By: #### L IVER #### [facility] [address] [place] [address] Dr. Shine Del Rosario Lymphocytes/100 WBC (Bld) 29.0 % Normal 20.5-60.0 [facility] Comment on above: Performed By: #### L IVER #### [facility] [address] [place] [address] Dr. Shine Del Rosario MANUAL DIFF REQ NO Normal [facility] Comment on above: Performed By: #### L IVER #### [facility] [address] [place] [address] Dr. Shine Del Rosario MCH (RBC) [Entitic mass] 31.3 pg Normal 26.7-34.0 [facility] Comment on above: Performed By: #### L IVER #### [facility] [address] [place] [address] Dr. Shine Del Rosario MCHC (RBC) [Mass/Vol] 33.0 g/dL Normal 29.9-35.2 [facility] Comment on above: Performed By: #### L IVER #### [facility] [address] [place] [address] Dr. Shine Del Rosario MCV (RBC) [Entitic vol] 94.9 fL Normal 81.0-99.0 [facility] Comment on above: Performed By: #### L IVER #### [facility] [address] [place] [address] Dr. Shine Del Rosario MONO # 0.8 103/ul Normal 0.3-0.8 [facility] Comment on above: Performed By: #### L IVER #### [facility] [address] [place] [address] Dr. Shine Del Rosario Monocytes/100 WBC (Bld) 15.6 % Critically high 1.7-12.0 [facility] Comment on above: Performed By: #### L IVER #### [facility] [address] [place] [address] Dr. Shine Del Rosario NEUT # 2.7 103/ul Normal 1.4-6.5 [facility] Comment on above: Performed By: #### L IVER #### [facility] [address] [address] [address] Shine Del Rosario Neutrophils/100 WBC (Bld) 50.0 % Normal 43.0-75.0 [facility] Comment on above: Performed By: #### L IVER #### [facility] [address] [address] [address] Shine Del Rosario Platelet mean volume (Bld) [Entitic vol] 8.5 fL Critically low 9.5-13.5 [facility] Comment on above: Performed By: #### L IVER #### [facility] [address] [address] [address] Shine Del Rosario PLT 583 103/ul Critically high 150-450 [facility] Comment on above: Performed By: #### L IVER #### [facility] [address] [place] [address] Dr. Shine Del Rosario RBC 3.16 106/ul Critically low 4.20-5.40 [facility] Comment on above: Performed By: #### L IVER #### [facility] [address] [address] [address] Shine Del Rosario WBC 5.3 103/ul Normal 4.0-11.0 [facility] Comment on above: Performed By: #### L IVER #### [facility] [address] [place] [address] Dr. Shine Del Rosario FERRITINon 09-27-2021 Ferritin [Mass/Vol] 1664.0 ng/mL Critically high 8.0-252.0 [facility] Comment on above: Performed By: #### B MP #### [facility] [address] [place] [address] Dr. Shine Del Rosario PROF CHEM 8 (BAS METB)on Anion gap [Moles/Vol] 12.4 mmol/L Normal [facility] Comment on above: Performed By: #### B MP #### [facility] [address] [place] [address] Dr. Shine Del Rosario Calcium [Mass/Vol] 9.0 mg/dL Normal 8.5-10.1 [facility] Comment on above: Performed By: #### B MP #### [facility] [address] [address] [address] Shine Del Rosario Chloride [Moles/Vol] 94 mmol/L Critically low 98-107 [facility] Comment on above: Performed By: #### B MP #### [facility] [address] [address] [address] Shine Del Rosario CO2 [Moles/Vol] 26.2 mmol/L Normal 21.0-32.0 [facility] Comment on above: Performed By: #### B MP #### [facility] [address] [address] [address] Shine Del Rosario Creatinine [Mass/Vol] 0.65 mg/dL Normal 0.55-1.02 [facility] Comment on above: Performed By: #### B MP #### [facility] [address] [place] [address] Dr. Shine Del Rosario EGFR-AF [place] >60 Normal >=60 [facility] Comment on above: Performed By: #### B MP #### [facility] [address] [address] [address] Shine Del Rosario EGFR-NON AF [place] >60 Normal >=60 [facility] Comment on above: Performed By: #### B MP #### [facility] [address] [place] [address] Dr. Shine Del Rosario Glucose [Mass/Vol] 98 mg/dL Normal 74-106 [facility] Comment on above: Performed By: #### B MP #### [facility] [address] [address] [address] Shine Del Rosario Potassium [Moles/Vol] 4.6 mmol/L Normal 3.5-5.1 [facility] Comment on above: Performed By: #### B MP #### [facility] [address] [address] [address] Shine Del Rosario Sodium [Moles/Vol] 128 mmol/L Critically low 136-145 Th [facility] Comment on above: Performed By: #### B MP #### [facility] [address] [address] [address] Shine Del Rosario Urea nitrogen [Mass/Vol] 7.0 mg/dL Normal 7.0-18.0 [facility] Comment on above: Performed By: #### B MP #### [facility] [address] [address] [address] Shine Del Rosario Urea nitrogen/Creatinine [Mass ratio] 10.8 mg/mg Normal [facility] Comment on above: Performed By: #### B MP #### [facility] [address] [place] [address] Dr. Shine Del Rosario XR CHEST 2 [...] BOB TATUM Date: 2021-09-27 20:21 Normal [facility] CBC AUTO DIFFon 09-23-2021 BASO # 0.1 103/ul Normal 0.0-0.1 [facility] Comment on above: Performed By: #### P TT, PT #### [facility] [address] [place] [address] Dr. Shine Del Rosario Basophils/100 WBC (Bld) 0.8 % Normal 0.2-2.0 [facility] Comment on above: Performed By: #### P TT, PT #### [facility] [address] [place] [address] Dr. Shine Del Rosario EO # 0.2 103/ul Normal 0.0-0.7 [facility] Comment on above: Performed By: #### P TT, PT #### [facility] [address] [place] [address] Dr. Shine Del Rosario Eosinophils/100 WBC (Bld) 3.2 % Normal 0.9-7.0 [facility] Comment on above: Performed By: #### P TT, PT #### [facility] [address] [place] [address] Dr. Shine Del Rosario Erythrocyte distribution width (RBC) [Ratio] 12.4 % Normal 11.0-15.0 [facility] Comment on above: Performed By: #### P TT, PT #### [facility] [address] [place] [address] Dr. Shine Del Rosario Hematocrit (Bld) [Volume fraction] 28.8 % Critically low 36.0-48.0 [facility] Comment on above: Performed By: #### P TT, PT #### [facility] [address] [place] [address] Dr. Shine Del Rosario Hemoglobin (Bld) [Mass/Vol] 9.8 g/dL Critically low 12.0-16.0 [facility] Comment on above: Performed By: #### P TT, PT #### [facility] [address] [place] [address] Dr. Shine Del Rosario IG # 0.03 10e3/ul Normal 0.00-0.03 [facility] Comment on above: Performed By: #### P TT, PT #### [facility] [address] [place] [address] Dr. Shine Del Rosario IG % 0.4 % Normal 0.0-0.5 [facility] Comment on above: Performed By: #### P TT, PT #### [facility] [address] [place] [address] Dr. Shine Del Rosario LYMPH # 1.4 103/ul Normal 1.2-3.8 [facility] Comment on above: Performed By: #### P TT, PT #### [facility] [address] [place] [address] Dr. Shine Del Rosario Lymphocytes/100 WBC (Bld) 19.5 % Critically low 20.5-60.0 [facility] Comment on above: Performed By: #### P TT, PT #### [facility] [address] [place] [address] Dr. Shine Del Rosario MANUAL DIFF REQ NO Normal [facility] Comment on above: Performed By: #### P TT, PT #### [facility] [address] [place] [address] Dr. Shine Del Rosario MCH (RBC) [Entitic mass] 32.0 pg Normal 26.7-34.0 [facility] Comment on above: Performed By: #### P TT, PT #### [facility] [address] [place] [address] Dr. Shine Del Rosario MCHC (RBC) [Mass/Vol] 34.0 g/dL Normal 29.9-35.2 [facility] Comment on above: Performed By: #### P TT, PT #### [facility] [address] [place] [address] Dr. Shine Del Rosario MCV (RBC) [Entitic vol] 94.1 fL Normal 81.0-99.0 [facility] Comment on above: Performed By: #### P TT, PT #### [facility] [address] [place] [address] Dr. Shine Del Rosario MONO # 0.8 103/ul Normal 0.3-0.8 [facility] Comment on above: Performed By: #### P TT, PT #### [facility] [address] [place] [address] Dr. Shine Del Rosario Monocytes/100 WBC (Bld) 10.9 % Normal 1.7-12.0 [facility] Comment on above: Performed By: #### P TT, PT #### [facility] [address] [place] [address] Dr. Shine Del Rosario NEUT # 4.7 103/ul Normal 1.4-6.5 [facility] Comment on above: Performed By: #### P TT, PT #### [facility] [address] [place] [address] Dr. Shine Del Rosario Neutrophils/100 WBC (Bld) 65.2 % Normal 43.0-75.0 [facility] Comment on above: Performed By: #### P TT, PT #### [facility] [address] [address] [address] Shine Del Rosario Platelet mean volume (Bld) [Entitic vol] 8.8 fL Critically low 9.5-13.5 [facility] Comment on above: Performed By: #### P TT, PT #### [facility] [address] [place] [address] Dr. Shine Del Rosario PLT 613 103/ul Critically high 150-450 [facility] Comment on above: Performed By: #### P TT, PT #### [facility] [address] [place] [address] Dr. Shine Del Rosario RBC 3.06 106/ul Critically low 4.20-5.40 [facility] Comment on above: Performed By: #### P TT, PT #### [facility] [address] [place] [address] Dr. Shine Del Rosario WBC 7.1 103/ul Normal 4.0-11.0 [facility] Comment on above: Performed By: #### P TT, PT #### [facility] [address] [place] [address] Dr. Shine Del Rosario PROF CHEM 8 (BAS METB)on Anion gap [Moles/Vol] 13.6 mmol/L Normal [facility] Comment on above: Performed By: #### P TT, PT #### [facility] [address] [place] [address] Dr. Shine Del Rosario Calcium [Mass/Vol] 9.0 mg/dL Normal 8.5-10.1 [facility] Comment on above: Performed By: #### P TT, PT #### [facility] [address] [place] [address] Dr. Shine Del Rosario Chloride [Moles/Vol] 89 mmol/L Critically low 98-107 [facility] Comment on above: Performed By: #### P TT, PT #### [facility] [address] [place] [address] Dr. Shine Del Rosario CO2 [Moles/Vol] 23.6 mmol/L Normal 21.0-32.0 [facility] Comment on above: Performed By: #### P TT, PT #### [facility] [address] [address] [address] Shine Del Rosario Creatinine [Mass/Vol] 0.63 mg/dL Normal 0.55-1.02 [facility] Comment on above: Performed By: #### P TT, PT #### [facility] [address] [address] [address] Shine Del Rosario EGFR-AF [place] >60 Normal >=60 [facility] Comment on above: Performed By: #### P TT, PT #### [facility] [address] [address] [address] Shine Del Rosario EGFR-NON AF [place] >60 Normal >=60 [facility] Comment on above: Performed By: #### P TT, PT #### [facility] [address] [address] [address] Shine Del Rosario Glucose [Mass/Vol] 116 mg/dL Critically high 74-106 [facility] Comment on above: Performed By: #### P TT, PT #### [facility] [address] [address] [address] Shine Del Rosario Potassium [Moles/Vol] 3.2 mmol/L Critically low 3.5-5.1 [facility] Comment on above: Performed By: #### P TT, PT #### [facility] [address] [address] [address] Shine Del Rosario Sodium [Moles/Vol] 123 mmol/L Critically low 136-145 [facility] Comment on above: Performed By: #### P TT, PT #### [facility] [address] [address] [address] Shine Del Rosario Urea nitrogen [Mass/Vol] 7.0 mg/dL Normal 7.0-18.0 [facility] Comment on above: Performed By: #### P TT, PT #### [facility] [address] [address] [address] Shine Del Rosario Urea nitrogen/Creatinine [Mass ratio] 11.1 mg/mg Normal [facility] Comment on above: Performed By: #### P TT, PT #### [facility] [address] [place], [place] [address] Dr. Shine Del Rosario [id number] PHENOTYP INGon 09-12-2021 [id number] , Serum 239 mg/dL Critically high 101-187 [facility] Comment on above: Result Comment: Perf ormed at: CB Performed By: #### P TT, PT #### [facility] [id number] Shine Del Rosario Phenotype (PI) MM Normal [facility] Comment on above: Result Comment: Phen otype [...] Performed By: #### P TT, PT #### [facility] [address] [place] [id number] STROKE HEAD [...] HOLLI FRANK Date: 2021-09-12 00:13 Normal [facility] CBC AUTO DIFFon 09-11-2021 BASO # 0.1 103/ul Normal 0.0-0.1 [facility] Comment on above: Performed By: #### B MP #### [facility] [address] [address] [address] Shine Del Rosario Basophils/100 WBC (Bld) 0.8 % Normal 0.2-2.0 [facility] Comment on above: Performed By: #### B MP #### [facility] [address] [address] [address] Shine Del Rosario EO # 0.6 103/ul Normal 0.0-0.7 [facility] Comment on above: Performed By: #### B MP #### [facility] [address] [address] [address] Shine Del Rosario Eosinophils/100 WBC (Bld) 4.9 % Normal 0.9-7.0 [facility] Comment on above: Performed By: #### B MP #### [facility] [address] [address] [address] Shine Del Rosario Erythrocyte distribution width (RBC) [Ratio] 13.9 % Normal 11.0-15.0 [facility] Comment on above: Performed By: #### B MP #### [facility] [address] [address] [address] Shine Del Rosario Hematocrit (Bld) [Volume fraction] 25.6 % Critically low 36.0-48.0 [facility] Comment on above: Performed By: #### B MP #### [facility] [address] [address] [address] Shine Del Rosario Hemoglobin (Bld) [Mass/Vol] 7.8 g/dL Critically low 12.0-16.0 [facility] Comment on above: Performed By: #### B MP #### [facility] [address] [place] [address] Dr. Shine Del Rosario IG # 0.67 10e3/ul Critically high 0.00-0.03 [facility] Comment on above: Performed By: #### B MP #### [facility] [address] [place] [address] Dr. Shine Del Rosario IG % 5.7 % Critically high 0.0-0.5 [facility] Comment on above: Performed By: #### B MP #### [facility] [address] [place] [address] Dr. Shine Del Rosario LYMPH # 1.6 103/ul Normal 1.2-3.8 [facility] Comment on above: Performed By: #### B MP #### [facility] [address] [place] [address] Dr. Shine Del Rosario Lymphocytes/100 WBC (Bld) 14.0 % Critically low 20.5-60.0 [facility] Comment on above: Performed By: #### B MP #### [facility] [address] [place] [address] Dr. Shine Del Rosario MANUAL DIFF REQ NO Normal [facility] Comment on above: Performed By: #### B MP #### [facility] [address] [place] [address] Dr. Shine Del Rosario MCH (RBC) [Entitic mass] 32.1 pg Normal 26.7-34.0 [facility] Comment on above: Performed By: #### B MP #### [facility] [address] [place] [address] Dr. Shine Del Rosario MCHC (RBC) [Mass/Vol] 30.5 g/dL Normal 29.9-35.2 [facility] Comment on above: Performed By: #### B MP #### [facility] [address] [place] [address] Dr. Shine Del Rosario MCV (RBC) [Entitic vol] 105.3 fL Critically high 81.0-99.0 [facility] Comment on above: Performed By: #### B MP #### [facility] [address] [address] [address] Shine Del Rosario MONO # 1.3 103/ul Critically high 0.3-0.8 [facility] Comment on above: Performed By: #### B MP #### [facility] [address] [address] [address] Shine Del Rosario Monocytes/100 WBC (Bld) 11.1 % Normal 1.7-12.0 [facility] Comment on above: Performed By: #### B MP #### [facility] [address] [place] [address] Dr. Shine Del Rosario NEUT # 7.5 103/ul Critically high 1.4-6.5 [facility] Comment on above: Performed By: #### B MP #### [facility] [address] [place] [address] Dr. Shine Del Rosario Neutrophils/100 WBC (Bld) 63.5 % Normal 43.0-75.0 [facility] Comment on above: Performed By: #### B MP #### [facility] [address] [place] [address] Dr. Shine Del Rosario Platelet mean volume (Bld) [Entitic vol] 8.5 fL Critically low 9.5-13.5 [facility] Comment on above: Performed By: #### B MP #### [facility] [address] [place] [address] Dr. Shine Del Rosario PLT 528 103/ul Critically high 150-450 [facility] Comment on above: Performed By: #### B MP #### [facility] [address] [place] [address] Dr. Shine Del Rosario RBC 2.43 106/ul Critically low 4.20-5.40 [facility] Comment on above: Performed By: #### B MP #### [facility] [address] [place] [address] Dr. Shine Del Rosario WBC 11.7 103/ul Critically high 4.0-11.0 [facility] Comment on above: Performed By: #### B MP #### [facility] [address] [address] [address] Shine Del Rosario PROF CHEM 8 (BAS METB)on Anion gap [Moles/Vol] 12.7 mmol/L Normal [facility] Comment on above: Performed By: #### P HVEN #### [facility] [address] [address] [address] Shine Del Rosario Calcium [Mass/Vol] 8.4 mg/dL Critically low 8.5-10.1 [facility] Comment on above: Performed By: #### P HVEN #### [facility] [address] [address] [address] Shine Del Rosario Chloride [Moles/Vol] 102 mmol/L Normal 98-107 [facility] Comment on above: Performed By: #### P HVEN #### [facility] [address] [place] [address] Dr. Shine Del Rosario CO2 [Moles/Vol] 24.7 mmol/L Normal 21.0-32.0 [facility] Comment on above: Performed By: #### P HVEN #### [facility] [address] [place] [address] Dr. Shine Del Rosario Creatinine [Mass/Vol] 0.58 mg/dL Normal 0.55-1.02 [facility] Comment on above: Performed By: #### P HVEN #### [facility] [address] [place] [address] Dr. Shine Del Rosario EGFR-AF [place] >60 Normal >=60 [facility] Comment on above: Performed By: #### P HVEN #### [facility] [address] [place] [address] Dr. Shine Del Rosario EGFR-NON AF [place] >60 Normal >=60 [facility] Comment on above: Performed By: #### P HVEN #### [facility] [address] [place] [address] Dr. Shine Del Rosario Glucose [Mass/Vol] 95 mg/dL Normal 74-106 [facility] Comment on above: Performed By: #### P HVEN #### [facility] [address] [place] [address] Dr. Shine Del Rosario Potassium [Moles/Vol] 4.4 mmol/L Normal 3.5-5.1 [facility] Comment on above: Performed By: #### P HVEN #### [facility] [address] [address] [address] Shine Del Rosario Sodium [Moles/Vol] 135 mmol/L Critically low 136-145 [facility] Comment on above: Performed By: #### P HVEN #### [facility] [address] [address] [address] Shine Del Rosario Urea nitrogen [Mass/Vol] 7.0 mg/dL Normal 7.0-18.0 [facility] Comment on above: Performed By: #### P HVEN #### [facility] [address] [place] [address] Dr. Shine Del Rosario Urea nitrogen/Creatinine [Mass ratio] 12.1 mg/mg Normal [facility] Comment on above: Performed By: #### P HVEN #### [facility] [address] [place] [address] Dr. Shine Del Rosario SPUTUM CULTUREon 09-11-2021 Epithelial cells LM Ql (Urine sed) None seen Normal [facility] Comment on above: Performed By: #### P TT, PT #### [facility] [address] [place] [address] Dr. Shine Del Rosario Gram Stain Evaluation Comment Normal [facility] Comment on above: Result Comment: This specimen is of good quality and is acceptable for routine bacterial culture. Performed By: #### P TT, PT #### [facility] [address] [place] [address] Dr. Shine Del Rosario Lower Respiratory Culture Final report Abnormal [facility] Comment on above: Performed By: #### P TT, PT #### [facility] [address] [place] [address] Dr. Shine Del Rosario Result 1 Comment Abnormal [facility] Comment on above: Result Comment: Mode rate number of gram positive cocci. Performed By: #### P TT, PT #### [facility] [address] [place] [address] Dr. Shine Del Rosario Result Comment: Loza xella (branhamella) catarrhalis Heavy growth Beta lactamase positive. Result 2 Normal [facility] Comment on above: Performed By: #### P TT, PT #### [facility] [address] [place] [address] Dr. Shine Del Rosario Result 2 Comment Normal [facility] Comment on above: Result Comment: Rout ine respiratory cruzito Moderate growth Performed By: #### P TT, PT #### [facility] [address] [place] [address] Dr. Shine Del Rosario Result 3 Normal [facility] Comment on above: Performed By: #### P TT, PT #### [facility] [address] [place] [address] Dr. Shine Del Rosario Result 4 Normal [facility] Comment on above: Performed By: #### P TT, PT #### [facility] [address] [place] [address] Dr. Shine Del Rosario White Blood Cells Moderate Normal [facility] Comment on above: Performed By: #### P TT, PT #### [facility] [address] [place] [address] Dr. Shine Del Rosario CBC AUTO DIFFon 09-10-2021 BASO # 0.1 103/ul Normal 0.0-0.1 [facility] Comment on above: Performed By: #### P TT, PT #### [facility] [address] [place] [address] Dr. Shine Del Rosario Basophils/100 WBC (Bld) 0.9 % Normal 0.2-2.0 [facility] Comment on above: Performed By: #### P TT, PT #### [facility] [address] [place] [address] Dr. Shine Del Rosario EO # 0.5 103/ul Normal 0.0-0.7 [facility] Comment on above: Performed By: #### P TT, PT #### [facility] [address] [place] [address] Dr. Shine Del Rosario Eosinophils/100 WBC (Bld) 4.6 % Normal 0.9-7.0 [facility] Comment on above: Performed By: #### P TT, PT #### [facility] [address] [place] [address] Dr. Shine Del Rosario Erythrocyte distribution width (RBC) [Ratio] 13.8 % Normal 11.0-15.0 [facility] Comment on above: Performed By: #### P TT, PT #### [facility] [address] [place] [address] Dr. Shine Del Rosario Hematocrit (Bld) [Volume fraction] 24.2 % Critically low 36.0-48.0 [facility] Comment on above: Performed By: #### P TT, PT #### [facility] [address] [place] [address] Dr. Shine Del Rosario Hemoglobin (Bld) [Mass/Vol] 7.5 g/dL Critically low 12.0-16.0 [facility] Comment on above: Performed By: #### P TT, PT #### [facility] [address] [place] [address] Dr. Shine Del Rosario IG # 0.60 10e3/ul Critically high 0.00-0.03 [facility] Comment on above: Performed By: #### P TT, PT #### [facility] [address] [place] [address] Dr. Shine Del Rosario IG % 5.4 % Critically high 0.0-0.5 [facility] Comment on above: Performed By: #### P TT, PT #### [facility] [address] [place] [address] Dr. Shine Del Rosario LYMPH # 1.6 103/ul Normal 1.2-3.8 [facility] Comment on above: Performed By: #### P TT, PT #### [facility] [address] [place] [address] Dr. Shine Del Rosario Lymphocytes/100 WBC (Bld) 14.3 % Critically low 20.5-60.0 [facility] Comment on above: Performed By: #### P TT, PT #### [facility] [address] [place] [address] Dr. Shine Del Rosario MANUAL DIFF REQ NO Normal [facility] Comment on above: Performed By: #### P TT, PT #### [facility] [address] [place] [address] Dr. Shine Del Rosario MCH (RBC) [Entitic mass] 32.2 pg Normal 26.7-34.0 [facility] Comment on above: Performed By: #### P TT, PT #### [facility] [address] [place] [address] Dr. Shine Del Rosario MCHC (RBC) [Mass/Vol] 31.0 g/dL Normal 29.9-35.2 [facility] Comment on above: Performed By: #### P TT, PT #### [facility] [address] [place] [address] Dr. Shine Del Rosario MCV (RBC) [Entitic vol] 103.9 fL Critically high 81.0-99.0 [facility] Comment on above: Performed By: #### P TT, PT #### [facility] [address] [place] [address] Dr. Shine Del Rosario MONO # 1.4 103/ul Critically high 0.3-0.8 [facility] Comment on above: Performed By: #### P TT, PT #### [facility] [address] [place] [address] Dr. Shine Del Rosario Monocytes/100 WBC (Bld) 12.3 % Critically high 1.7-12.0 [facility] Comment on above: Performed By: #### P TT, PT #### [facility] [address] [place] [address] Dr. Shine Del Rosario NEUT # 7.0 103/ul Critically high 1.4-6.5 [facility] Comment on above: Performed By: #### P TT, PT #### [facility] [address] [place] [address] Dr. Shine Del Rosario Neutrophils/100 WBC (Bld) 62.5 % Normal 43.0-75.0 [facility] Comment on above: Performed By: #### P TT, PT #### [facility] [address] [place] [address] Dr. Shine Del Rosario Platelet mean volume (Bld) [Entitic vol] 8.7 fL Critically low 9.5-13.5 [facility] Comment on above: Performed By: #### P TT, PT #### [facility] [address] [place] [address] Dr. Shine Del Rosario PLT 476 103/ul Critically high 150-450 [facility] Comment on above: Performed By: #### P TT, PT #### [facility] [address] [place] [address] Dr. Shine Del Rosario RBC 2.33 106/ul Critically low 4.20-5.40 [facility] Comment on above: Performed By: #### P TT, PT #### [facility] [address] [place] [address] Dr. Shine Del Rosario WBC 11.2 103/ul Critically high 4.0-11.0 [facility] Comment on above: Performed By: #### P TT, PT #### [facility] [address] [place] [address] Dr. Shine Del Rosario PREALBUMINon 09-10-2021 Prealbumin [Mass/Vol] 13 mg/dL Normal 10-36 [facility] Comment on above: Performed By: #### B MP #### [facility] [address] [place] [address] Dr. Shine Del Rosario PROF CHEM 8 (BAS METB)on Anion gap [Moles/Vol] 12.7 mmol/L Normal [facility] Comment on above: Performed By: #### L IVER #### [facility] [address] [place] [address] Dr. Shine Del Rosario Calcium [Mass/Vol] 8.2 mg/dL Critically low 8.5-10.1 [facility] Comment on above: Performed By: #### L IVER #### [facility] [address] [place] [address] Dr. Shine Del Rosario Chloride [Moles/Vol] 100 mmol/L Normal 98-107 [facility] Comment on above: Performed By: #### L IVER #### [facility] [address] [address] [address] Shine Del Rosario CO2 [Moles/Vol] 25.8 mmol/L Normal 21.0-32.0 [facility] Comment on above: Performed By: #### L IVER #### [facility] [address] [place] [address] Dr. Shine Del Rosario Creatinine [Mass/Vol] 0.57 mg/dL Normal 0.55-1.02 [facility] Comment on above: Performed By: #### L IVER #### [facility] [address] [place] [address] Dr. Shine Del Rosario EGFR-AF [place] >60 Normal >=60 [facility] Comment on above: Performed By: #### L IVER #### [facility] [address] [place] [address] Dr. Shine Del Rosario EGFR-NON AF [place] >60 Normal >=60 [facility] Comment on above: Performed By: #### L IVER #### [facility] [address] [place] [address] Dr. Shine Del Rosario Glucose [Mass/Vol] 92 mg/dL Normal 74-106 [facility] Comment on above: Performed By: #### L IVER #### [facility] [address] [place] [address] Dr. Shine Del Rosario Potassium [Moles/Vol] 4.5 mmol/L Normal 3.5-5.1 [facility] Comment on above: Performed By: #### L IVER #### [facility] [address] [place] [address] Dr. Shine Del Rosario Sodium [Moles/Vol] 134 mmol/L Critically low 136-145 [facility] Comment on above: Performed By: #### L IVER #### [facility] [address] [place] [address] Dr. Shine Del Rosario Urea nitrogen [Mass/Vol] 10.0 mg/dL Normal 7.0-18.0 [facility] Comment on above: Performed By: #### L IVER #### [facility] [address] [place] [address] Dr. Shine Del Rosario Urea nitrogen/Creatinine [Mass ratio] 17.5 mg/mg Normal [facility] Comment on above: Performed By: #### L AYDEEER #### [facility] [address] [place] [address] Dr. Shine Del Rosario CBC W MANUAL DIFFon 09-10-19 22 ATYPICAL LYMPH # Normal [facility] Comment on above: Performed By: #### B MP #### [facility] [address] [place] [address] Dr. Shine Del Rosario ATYPICAL LYMPH % Normal [facility] Comment on above: Performed By: #### B MP #### [facility] [address] [place] [address] Dr. Shine Del Rosario BAND # Normal 0.0-0.3 [facility] Comment on above: Performed By: #### B MP #### [facility] [address] [place] [address] Dr. Shine Del Rosario BAND % Normal 0-5 [facility] Comment on above: Performed By: #### B MP #### [facility] [address] [place] [address] Dr. Shine Del Rosario BASOM # 0.00 103/ul Normal 0.00-0.10 [facility] Comment on above: Performed By: #### B MP #### [facility] [address] [place] [address] Dr. Shine Del Rosario BASOM % 0.0 % Critically low 0.2-2.0 [facility] Comment on above: Performed By: #### B MP #### [facility] [address] [place] [address] Dr. Shine Del Rosario BLAST # Normal [facility] Comment on above: Performed By: #### B MP #### [facility] [address] [place] [address] Dr. Shine Del Rosario BLAST % Normal [facility] Comment on above: Performed By: #### B MP #### [facility] [address] [place] [address] Dr. Shine Del Rosario CORRECTED WBC Normal 4.0-11.0 [facility] Comment on above: Performed By: #### B MP #### [facility] [address] [address] [address] Shine Del Rosario EOS # 1.34 103/ul Critically high 0.00-0.70 [facility] Comment on above: Performed By: #### B MP #### [facility] [address] [place] [address] Dr. Shine Del Rosario EOS% 11.0 % Critically high 0.9-7.0 [facility] Comment on above: Performed By: #### B MP #### [facility] [address] [place] [address] Dr. Shine Del Rosario HCT 23.6 % Critically low 36.0-48.0 [facility] Comment on above: Performed By: #### B MP #### [facility] [address] [place] [address] Dr. Shine Del Rosario HGB 7.6 g/dl Critically low 12.0-16.0 [facility] Comment on above: Performed By: #### B MP #### [facility] [address] [place] [address] Dr. Shine Del Rosario LYMPHM # 2.32 103/ul Normal 1.20-3.80 [facility] Comment on above: Performed By: #### B MP #### [facility] [address] [place] [address] Dr. Shine Del Rosario LYMPHM% 19.0 % Critically low 20.5-60.0 [facility] Comment on above: Performed By: #### B MP #### [facility] [address] [place] [address] Dr. Shine Del Rosario MCH 32.6 pg Normal 26.7-34.0 [facility] Comment on above: Performed By: #### B MP #### [facility] [address] [place] [address] Dr. Shine Del Rosario MCHC 32.2 g/dl Normal 29.9-35.2 [facility] Comment on above: Performed By: #### B MP #### [facility] [address] [place] [address] Dr. Shine Del Rosario MCV 101.3 fL Critically high 81.0-99.0 [facility] Comment on above: Performed By: #### B MP #### [facility] [address] [place] [address] Dr. Shine Del Rosario METAMYELOCYTE # Normal [facility] Comment on above: Performed By: #### B MP #### [facility] [address] [place] [address] Dr. Shine Del Rosario METAMYELOCYTE % Normal [facility] Comment on above: Performed By: #### B MP #### [facility] [address] [place] [address] Dr. Shine Del Rosario MONOM# 1.83 103/ul Critically high 0.30-0.80 [facility] Comment on above: Performed By: #### B MP #### [facility] [address] [place] [address] Dr. Shine Del Rosario MONOM% 15.0 % Critically high 1.7-12.0 [facility] Comment on above: Performed By: #### B MP #### [facility] [address] [place] [address] Dr. Shine Del Rosario MPV 8.6 fL Critically low 9.5-13.5 [facility] Comment on above: Performed By: #### B MP #### [facility] [address] [place] [address] Dr. Shine Del Rosario MYELOCYTE # Normal [facility] Comment on above: Performed By: #### B MP #### [facility] [address] [place] [address] Dr. Shine Del Rosario MYELOCYTE % Normal [facility] Comment on above: Performed By: #### B MP #### [facility] [address] [place] [address] Dr. Shine Del Rosario NRBC Normal [facility] Comment on above: Performed By: #### B MP #### [facility] [address] [place] [address] Dr. Shine Del Rosario PLT 434 103/ul Normal 150-450 [facility] Comment on above: Performed By: #### B MP #### [facility] [address] [place] [address] Dr. Shine Del Rosario RBC 2.33 106/ul Critically low 4.20-5.40 [facility] Comment on above: Performed By: #### B MP #### [facility] [address] [place] [address] Dr. Shine Del Rosario RDW 13.3 % Normal 11.0-15.0 [facility] Comment on above: Performed By: #### B MP #### [facility] [address] [place] [address] Dr. Shine Del Rosario SEG # 6.71 103/ul Critically high 1.40-6.50 [facility] Comment on above: Performed By: #### B MP #### [facility] [address] [place] [address] Dr. Shine Del Rosario SEG % 55.0 % Normal 43.0-75.0 [facility] Comment on above: Performed By: #### B MP #### [facility] [address] [place] [address] Dr. Shine Del Rosario WBC 12.2 103/ul Critically high 4.0-11.0 [facility] Comment on above: Performed By: #### B MP #### [facility] [address] [place] [address] Dr. Shine Del Rosario PREALBUMINon 09-09-2021 Procalcitonin WRORD Normal [facility] Comment on above: Result Comment: Test not [...] 09-09-2021 Performed By: #### B MP #### [facility] [address] [place] [address] Dr. Shine Del Rosario PROF CHEM 8 (BAS METB)on Anion gap [Moles/Vol] 10.4 mmol/L Normal [facility] Comment on above: Performed By: #### P HVEN #### [facility] [address] [place] [address] Dr. Shine Del Rosario Calcium [Mass/Vol] 8.2 mg/dL Critically low 8.5-10.1 [facility] Comment on above: Performed By: #### P HVEN #### [facility] [address] [place] [address] Dr. Shine Del Rosario Chloride [Moles/Vol] 100 mmol/L Normal 98-107 [facility] Comment on above: Performed By: #### P HVEN #### [facility] [address] [place] [address] Dr. Shine Del Rosario CO2 [Moles/Vol] 23.9 mmol/L Normal 21.0-32.0 [facility] Comment on above: Performed By: #### P HVEN #### [facility] [address] [place] [address] Dr. Shine Del Rosario Creatinine [Mass/Vol] 0.84 mg/dL Normal 0.55-1.02 [facility] Comment on above: Performed By: #### P HVEN #### [facility] [address] [place] [address] Dr. Shine Del Rosario EGFR-AF [place] >60 Normal >=60 [facility] Comment on above: Performed By: #### P HVEN #### [facility] [address] [place] [address] Dr. Shine Del Rosario EGFR-NON AF [place] >60 Normal >=60 [facility] Comment on above: Performed By: #### P HVEN #### [facility] [address] [address] [address] Shine Del Rosario Glucose [Mass/Vol] 101 mg/dL Normal 74-106 [facility] Comment on above: Performed By: #### P HVEN #### [facility] [address] [address] [address] Shine Del Rosario Potassium [Moles/Vol] 4.3 mmol/L Normal 3.5-5.1 [facility] Comment on above: Performed By: #### P HVEN #### [facility] [address] [address] [address] Shine Del Rosario Sodium [Moles/Vol] 130 mmol/L Critically low 136-145 [facility] Comment on above: Performed By: #### P HVEN #### [facility] [address] [place] [address] Dr. Shine Del Rosario Urea nitrogen [Mass/Vol] 24.0 mg/dL Critically high 7.0-18.0 [facility] Comment on above: Performed By: #### P HVEN #### [facility] [address] [place] [address] Dr. Shine Del Rosario Urea nitrogen/Creatinine [Mass ratio] 28.6 mg/mg Normal [facility] Comment on above: Performed By: #### P HVEN #### [facility] [address] [place] [address] Dr. Shine Del Rosario BNPon 09-08-2021 Natriuretic peptide B (Bld) [Mass/Vol] 358.0 pg/mL Normal <=900.0 [facility] Comment on above: Performed By: #### P TT, PT #### [facility] [address] [address] [address] Shine Del Rosario CBC W MANUAL DIFFon 09-09-19 ATYPICAL LYMPH # Normal [facility] Comment on above: Performed By: #### P TT, PT #### [facility] [address] [address] [address] Shine Del Rosario ATYPICAL LYMPH % Normal [facility] Comment on above: Performed By: #### P TT, PT #### [facility] [address] [place] [address] Dr. Shine Del Rosario BAND # 0.6 103/ul Critically high 0.0-0.3 [facility] Comment on above: Performed By: #### P TT, PT #### [facility] [address] [place] [address] Dr. Shine Del Rosario BAND % 5 % Normal 0-5 [facility] Comment on above: Performed By: #### P TT, PT #### [facility] [address] [place] [address] Dr. Shine Del Rosario BASOM # 0.00 103/ul Normal 0.00-0.10 [facility] Comment on above: Performed By: #### P TT, PT #### [facility] [address] [place] [address] Dr. Shine Del Rosario BASOM % 0.0 % Critically low 0.2-2.0 [facility] Comment on above: Performed By: #### P TT, PT #### [facility] [address] [place] [address] Dr. Shine Del Rosario BLAST # Normal [facility] Comment on above: Performed By: #### P TT, PT #### [facility] [address] [place] [address] Dr. Shine Del Rosario BLAST % Normal [facility] Comment on above: Performed By: #### P TT, PT #### [facility] [address] [place] [address] Dr. Shine Del Rosario CORRECTED WBC Normal 4.0-11.0 [facility] Comment on above: Performed By: #### P TT, PT #### [facility] [address] [place] [address] Dr. Shine Del Rosario EOS # 0.60 103/ul Normal 0.00-0.70 [facility] Comment on above: Performed By: #### P TT, PT #### [facility] [address] [place] [address] Dr. Shine Del Rosario EOS% 5.0 % Normal 0.9-7.0 [facility] Comment on above: Performed By: #### P TT, PT #### [facility] [address] [address] [address] Shine Del Rosario HCT 25.4 % Critically low 36.0-48.0 [facility] Comment on above: Performed By: #### P TT, PT #### [facility] [address] [address] [address] Shine Del Rosario HGB 7.9 g/dl Critically low 12.0-16.0 [facility] Comment on above: Performed By: #### P TT, PT #### [facility] [address] [address] [address] Shine Del Rosario LYMPHM # 1.44 103/ul Normal 1.20-3.80 [facility] Comment on above: Performed By: #### P TT, PT #### [facility] [address] [place] [address] Dr. Shine Del Rosario LYMPHM% 12.0 % Critically low 20.5-60.0 [facility] Comment on above: Performed By: #### P TT, PT #### [facility] [address] [place] [address] Dr. Shine Del Rosario MCH 32.0 pg Normal 26.7-34.0 [facility] Comment on above: Performed By: #### P TT, PT #### [facility] [address] [place] [address] Dr. Shine Del Rosario MCHC 31.1 g/dl Normal 29.9-35.2 [facility] Comment on above: Performed By: #### P TT, PT #### [facility] [address] [place] [address] Dr. Shine Del Rosario MCV 102.8 fL Critically high 81.0-99.0 [facility] Comment on above: Performed By: #### P TT, PT #### [facility] [address] [place] [address] Dr. Shine Del Rosario METAMYELOCYTE # Normal [facility] Comment on above: Performed By: #### P TT, PT #### [facility] [address] [place] [address] Dr. Shine Del Rosario METAMYELOCYTE % Normal [facility] Comment on above: Performed By: #### P TT, PT #### [facility] [address] [place] [address] Dr. Shine Del Rosario MONOM# 1.80 103/ul Critically high 0.30-0.80 [facility] Comment on above: Performed By: #### P TT, PT #### [facility] [address] [place] [address] Dr. Shine Del Rosario MONOM% 15.0 % Critically high 1.7-12.0 [facility] Comment on above: Performed By: #### P TT, PT #### [facility] [address] [place] [address] Dr. Shine Del Rosario MPV 8.9 fL Critically low 9.5-13.5 [facility] Comment on above: Performed By: #### P TT, PT #### [facility] [address] [place] [address] Dr. Shine Del Rosario MYELOCYTE # Normal [facility] Comment on above: Performed By: #### P TT, PT #### [facility] [address] [place] [address] Dr. Shine Del Rosario MYELOCYTE % Normal [facility] Comment on above: Performed By: #### P TT, PT #### [facility] [address] [place] [address] Dr. Shine Del Rosario NRBC Normal [facility] Comment on above: Performed By: #### P TT, PT #### [facility] [address] [place] [address] Dr. Shine Del Rosario PLT 428 103/ul Normal 150-450 [facility] Comment on above: Performed By: #### P TT, PT #### [facility] [address] [place] [address] Dr. Shine Del Rosario RBC 2.47 106/ul Critically low 4.20-5.40 [facility] Comment on above: Performed By: #### P TT, PT #### [facility] [address] [place] [address] Dr. Shine Del Rosario RDW 13.2 % Normal 11.0-15.0 [facility] Comment on above: Performed By: #### P TT, PT #### [facility] [address] [address] [address] Shine Del Rosario SEG # 7.56 103/ul Critically high 1.40-6.50 [facility] Comment on above: Performed By: #### P TT, PT #### [facility] [address] [address] [address] Shine Del Rosario SEG % 63.0 % Normal 43.0-75.0 [facility] Comment on above: Performed By: #### P TT, PT #### [facility] [address] [address] [address] Shine Del Rosario WBC 12.0 103/ul Critically high 4.0-11.0 [facility] Comment on above: Performed By: #### P TT, PT #### [facility] [address] [place] [address] Dr. Shine Del Rosario CTA CHEST WO [...] by: BEBETO PUTNAM Date: 2021-09-08 11:25 Normal [facility] D-DIMERon 09-08-2021 D-DIMER 4.13 mg/L FEU Critically high 0.19-0.50 [facility] Comment on above: Performed By: #### P TT, PT #### [facility] [address] [address] [address] Shine Del Rosario D-DIMER COMMENTS SEE BELOW Normal [facility] Comment on above: Result Comment: Incr eases [...] Performed By: #### P TT, PT #### [facility] [address] [address] [address] Shine Del Rosario ECHOCARDIO M/2D COMPLETEon 0 09-08-2021 ECHOCARDIO M/2D COMPLETE Patient: CATHERINE ADAMSON Exam Date: 09/08/2021 : 1960 Gender:F Ordering : DR LENY MCCULLOUGH . Admission #: [id number] Family : DR XIMENA ASTUDILLO M.D. Order #: [id number] CLICK HERE TO VIEW EXAM ECHOCARDIOGRAM REPORT PROCEDURE: CARDIO PULMONARY ECHOCARDIO M/2D COMP INDICATIONS: Shortness of breath, h/o MN, PTCA, hypertension, COPD COMPARISON: None. DESCRIPTION: COMPLETE [...] Area(A2C): 16.50 cm2 Left Atrium Systolic Volume(A2C): 51387 mm3 Mitral Valve MV E to A [...] Garcia M.D. on 09/08/2021 at 14:24 Normal [facility] LIVER PROFILEon 09-08-2021 Albumin [Mass/Vol] 3.0 g/dL Critically low 3.4-5.0 [facility] Comment on above: Performed By: #### L IVER #### [facility] [address] [place] [address] Dr. Shine Del Rosario Albumin/Globulin [Mass ratio] 1.0 {ratio} Normal [facility] Comment on above: Performed By: #### L IVER #### [facility] [address] [place] [address] Dr. Shine Del Rosario ALP [Catalytic activity/Vol] 108 U/L Normal 46-116 [facility] Comment on above: Performed By: #### L IVER #### [facility] [address] [address] [address] Shine Del Rosario ALT [Catalytic activity/Vol] 52 U/L Normal 14-59 [facility] Comment on above: Performed By: #### L IVER #### [facility] [address] [address] [address] Shine Del Rosario AST [Catalytic activity/Vol] 50 U/L Critically high 15-37 [facility] Comment on above: Performed By: #### L IVER #### [facility] [address] [address] [address] Shine Del Rosario BILI, CONJUGATED 0.3 mg/dL Critically high 0.0-0.2 [facility] Comment on above: Performed By: #### L IVER #### [facility] [address] [address] [address] Shine Del Rosario Bilirubin [Mass/Vol] 0.9 mg/dL Normal 0.2-1.0 [facility] Comment on above: Performed By: #### L IVER #### [facility] [address] [address] [address] Shine Del Rosario Globulin (S) [Mass/Vol] 3.1 g/dL Normal [facility] Comment on above: Performed By: #### L IVER #### [facility] [address] [place] [address] Dr. Shine Del Rosario Protein [Mass/Vol] 6.1 g/dL Normal 6.1-8.2 [facility] Comment on above: Performed By: #### L IVER #### [facility] [address] [place] [address] Dr. Shine Del Rosario OCC BLD IMMUNO SCREENon 08-13 OCCULT BLOOD Negative Normal NEGATIVE [facility] Comment on above: Performed By: #### P TT, PT #### [facility] [address] [place] [address] Dr. Shine Del Rosario OSMOLALITY URINEon Osmolality, Urine 334 mOsmol/kg Normal [facility] Comment on above: Result Comment: 24 h r : 300 - 900 Random: 50 - 1400 After 12hr fluid restriction: >850 Performed By: #### B MP #### [facility] [address] [place] [address] Dr. Shine Del Rosario PROF CHEM 8 (BAS METB)on Anion gap [Moles/Vol] 13.7 mmol/L Normal [facility] Comment on above: Performed By: #### P HVEN #### [facility] [address] [place] [address] Dr. Shine Del Rosario Calcium [Mass/Vol] 8.6 mg/dL Normal 8.5-10.1 [facility] Comment on above: Performed By: #### P HVEN #### [facility] [address] [address] [address] Shine Del Rosario Chloride [Moles/Vol] 95 mmol/L Critically low 98-107 [facility] Comment on above: Performed By: #### P HVEN #### [facility] [address] [address] [address] Shine Del Rosario CO2 [Moles/Vol] 24.2 mmol/L Normal 21.0-32.0 [facility] Comment on above: Performed By: #### P HVEN #### [facility] [address] [place] [address] Dr. Shine Del Rosario Creatinine [Mass/Vol] 0.93 mg/dL Normal 0.55-1.02 [facility] Comment on above: Performed By: #### P HVEN #### [facility] [address] [place] [address] Dr. Shine Del Rosario EGFR-AF [place] >60 Normal >=60 [facility] Comment on above: Performed By: #### P HVEN #### [facility] [address] [place] [address] Dr. Shine Del Rosario EGFR-NON AF [place] >60 Normal >=60 [facility] Comment on above: Performed By: #### P HVEN #### [facility] [address] [place] [address] Dr. Shine Del Rosario Glucose [Mass/Vol] 122 mg/dL Critically high 74-106 [facility] Comment on above: Performed By: #### P HVEN #### [facility] [address] [place] [address] Dr. Shine Del Rosario Potassium [Moles/Vol] 4.7 mmol/L Normal 3.5-5.1 [facility] Comment on above: Performed By: #### P HVEN #### [facility] [address] [place] [address] Dr. Shine Del Rosario Sodium [Moles/Vol] 128 mmol/L Critically low 136-145 [facility] Comment on above: Performed By: #### P HVEN #### [facility] [address] [address] [address] Shine Del Rosario Urea nitrogen [Mass/Vol] 25.0 mg/dL Critically high 7.0-18.0 [facility] Comment on above: Performed By: #### P HVEN #### [facility] [address] [address] [address] Shine Del Rosario Urea nitrogen/Creatinine [Mass ratio] 26.8 mg/mg Normal [facility] Comment on above: Performed By: #### P HVEN #### [facility] [address] [address] [address] Shine Del Rosario Anion gap [Moles/Vol] 14.5 mmol/L Normal [facility] Comment on above: Performed By: #### B MP #### [facility] [address] [address] [address] Shine Del Rosario Calcium [Mass/Vol] 8.5 mg/dL Normal 8.5-10.1 [facility] Comment on above: Performed By: #### B MP #### [facility] [address] [address] [address] Shine Del Rosario Chloride [Moles/Vol] 94 mmol/L Critically low 98-107 [facility] Comment on above: Performed By: #### B MP #### [facility] [address] [address] [address] Shine Del Rosario CO2 [Moles/Vol] 22.1 mmol/L Normal 21.0-32.0 [facility] Comment on above: Performed By: #### B MP #### [facility] [address] [address] [address] Shine Del Rosario Creatinine [Mass/Vol] 1.42 mg/dL Critically high 0.55-1.02 [facility] Comment on above: Performed By: #### B MP #### [facility] [address] [address] [address] Shine Del Rosario EGFR-AF [place] 45 mL/min/1.73m2 Critically low >=60 [facility] Comment on above: Performed By: #### B MP #### [facility] [address] [address] [address] Shine Del Rosario EGFR-NON AF [place] 37 mL/min/1.73m2 Critically low >=60 [facility] Comment on above: Performed By: #### B MP #### [facility] [address] [address] [address] Shine Del Rosario Glucose [Mass/Vol] 123 mg/dL Critically high 74-[address] [facility] Comment on above: Performed By: #### B MP #### [facility] [address] [address] [address] Shine Del Rosario Potassium [Moles/Vol] 4.6 mmol/L Normal 3.5-5.1 [facility] Comment on above: Performed By: #### B MP #### [facility] [address] [place] [address] Dr. Shine Del Rosario Sodium [Moles/Vol] 126 mmol/L Critically low 136-145 [facility] Comment on above: Performed By: #### B MP #### [facility] [address] [address] [address] Shine Del Rosario Urea nitrogen [Mass/Vol] 28.0 mg/dL Critically high 7.0-18.0 [facility] Comment on above: Performed By: #### B MP #### [facility] [address] [place] [address] Dr. Shine Del Rosario Urea nitrogen/Creatinine [Mass ratio] 19.7 mg/mg Normal [facility] Comment on above: Performed By: #### B MP #### [facility] [facility] [address] [address] [address] Shine Del Rosario CBC W MANUAL DIFFon 09-08-19 22 ATYPICAL LYMPH # Normal [facility] Comment on above: Performed By: #### P TT, PT #### [facility] [address] [place] [address] Dr. Shine Del Rosario ATYPICAL LYMPH % Normal [facility] Comment on above: Performed By: #### P TT, PT #### [facility] [address] [place] [address] Dr. Shine Del Rosario BAND # 0.4 103/ul Critically high 0.0-0.3 [facility] Comment on above: Performed By: #### P TT, PT #### [facility] [address] [place] [address] Dr. Shine Del Rosario BAND % 3 % Normal 0-5 [facility] Comment on above: Performed By: #### P TT, PT #### [facility] [address] [place] [address] Dr. Shine Del Rosario BASOM # 0.00 103/ul Normal 0.00-0.10 [facility] Comment on above: Performed By: #### P TT, PT #### [facility] [address] [place] [address] Dr. Shine Del Rosario BASOM % 0.0 % Critically low 0.2-2.0 [facility] Comment on above: Performed By: #### P TT, PT #### [facility] [address] [place] [address] Dr. Shine Del Rosario BLAST # Normal [facility] Comment on above: Performed By: #### P TT, PT #### [facility] [address] [place] [address] Dr. Shine Del Rosario BLAST % Normal [facility] Comment on above: Performed By: #### P TT, PT #### [facility] [address] [place] [address] Dr. Shine Del Rosario CORRECTED WBC Normal 4.0-11.0 [facility] Comment on above: Performed By: #### P TT, PT #### [facility] [address] [place] [address] Dr. Shine Del Rosario EOS # 0.24 103/ul Normal 0.00-0.70 [facility] Comment on above: Performed By: #### P TT, PT #### [facility] [address] [place] [address] Dr. Shine Del Rosario EOS% 2.0 % Normal 0.9-7.0 [facility] Comment on above: Performed By: #### P TT, PT #### [facility] [address] [address] [address] Shine Del Rosario HCT 24.9 % Critically low 36.0-48.0 [facility] Comment on above: Performed By: #### P TT, PT #### [facility] [address] [place] [address] Dr. Shine Del Rosario HGB 7.9 g/dl Critically low 12.0-16.0 [facility] Comment on above: Performed By: #### P TT, PT #### [facility] [address] [place] [address] Dr. Shine Del Rosario LYMPHM # 1.33 103/ul Normal 1.20-3.80 [facility] Comment on above: Performed By: #### P TT, PT #### [facility] [address] [place] [address] Dr. Shine Del Rosario LYMPHM% 11.0 % Critically low 20.5-60.0 [facility] Comment on above: Performed By: #### P TT, PT #### [facility] [address] [place] [address] Dr. Shine Del Rosario MCH 32.4 pg Normal 26.7-34.0 [facility] Comment on above: Performed By: #### P TT, PT #### [facility] [address] [place] [address] Dr. Shine Del Rosario MCHC 31.7 g/dl Normal 29.9-35.2 [facility] Comment on above: Performed By: #### P TT, PT #### [facility] [address] [place] [address] Dr. Shine Del Rosario MCV 102.0 fL Critically high 81.0-99.0 [facility] Comment on above: Performed By: #### P TT, PT #### [facility] [address] [place] [address] Dr. Shine Del Rosario METAMYELOCYTE # Normal [facility] Comment on above: Performed By: #### P TT, PT #### [facility] [address] [place] [address] Dr. Shine Del Rosario METAMYELOCYTE % Normal [facility] Comment on above: Performed By: #### P TT, PT #### [facility] [address] [address] [address] Shine Del Rosario MONOM# 1.81 103/ul Critically high 0.30-0.80 [facility] Comment on above: Performed By: #### P TT, PT #### [facility] [address] [address] [address] Shine Del Rosario MONOM% 15.0 % Critically high 1.7-12.0 [facility] Comment on above: Performed By: #### P TT, PT #### [facility] [address] [address] [address] Shine Del Rosario MPV 9.0 fL Critically low 9.5-13.5 [facility] Comment on above: Performed By: #### P TT, PT #### [facility] [address] [place] [address] Dr. Shine Del Rosario MYELOCYTE # Normal [facility] Comment on above: Performed By: #### P TT, PT #### [facility] [address] [address] [address] Shine Del Rosario MYELOCYTE % Normal [facility] Comment on above: Performed By: #### P TT, PT #### [facility] [address] [place] [address] Dr. Shine Del Rosario NRBC Normal [facility] Comment on above: Performed By: #### P TT, PT #### [facility] [address] [address] [address] Shine Del Rosario PLT 381 103/ul Normal 150-450 [facility] Comment on above: Performed By: #### P TT, PT #### [facility] [address] [address] [address] Shine Del Rosario RBC 2.44 106/ul Critically low 4.20-5.40 [facility] Comment on above: Performed By: #### P TT, PT #### [facility] [address] [place] [address] Dr. Shine Del Rosario RDW 12.7 % Normal 11.0-15.0 [facility] Comment on above: Performed By: #### P TT, PT #### [facility] [address] [address] [address] Shine Del Rosario SEG # 8.35 103/ul Critically high 1.40-6.50 [facility] Comment on above: Performed By: #### P TT, PT #### [facility] [address] [place] [address] Dr. Shine Del Rosario SEG % 69.0 % Normal 43.0-75.0 [facility] Comment on above: Performed By: #### P TT, PT #### [facility] [address] [place] [address] Dr. Shine Del Rosario WBC 12.1 103/ul Critically high 4.0-11.0 [facility] Comment on above: Performed By: #### P TT, PT #### [facility] [address] [place] [address] Dr. Shine Del Rosario OSMOLALITYon 09-07-2021 Osmolality [Osmolality] 253 mosm/kg Critically low 280-301 [facility] Comment on above: Performed By: #### L IVER #### [facility] [address] [place] [address] Dr. Shine Del Rosario PROF CHEM 8 (BAS METB)on Anion gap [Moles/Vol] 12.6 mmol/L Normal [facility] Comment on above: Performed By: #### P TT, PT #### [facility] [address] [place] [address] Dr. Shine Del Rosario Calcium [Mass/Vol] 8.4 mg/dL Critically low 8.5-10.1 [facility] Comment on above: Performed By: #### P TT, PT #### [facility] [address] [place] [address] Dr. Shine Del Rosario Chloride [Moles/Vol] 95 mmol/L Critically low 98-107 [facility] Comment on above: Performed By: #### P TT, PT #### [facility] [address] [place] [address] Dr. Shine Del Rosario CO2 [Moles/Vol] 24.7 mmol/L Normal 21.0-32.0 [facility] Comment on above: Performed By: #### P TT, PT #### [facility] [address] [address] [address] Shine Del Rosario Creatinine [Mass/Vol] 1.02 mg/dL Normal 0.55-1.02 [facility] Comment on above: Performed By: #### P TT, PT #### [facility] [address] [address] [address] Shine Del Rosario EGFR-AF [place] >60 Normal >=60 [facility] Comment on above: Performed By: #### P TT, PT #### [facility] [address] [address] [address] Shine Del Rosario EGFR-NON AF [place] 55 mL/min/1.73m2 Critically low >=60 [facility] Comment on above: Performed By: #### P TT, PT #### [facility] [address] [place] [address] Dr. Shine Del Rosario Glucose [Mass/Vol] 116 mg/dL Critically high 74-[address] [facility] Comment on above: Performed By: #### P TT, PT #### [facility] [address] [place] [address] Dr. Shine Del Rosario Potassium [Moles/Vol] 4.3 mmol/L Normal 3.5-5.1 [facility] Comment on above: Performed By: #### P TT, PT #### [facility] [address] [address] [address] Shine Del Rosario Sodium [Moles/Vol] 128 mmol/L Critically low 136-145 [facility] Comment on above: Performed By: #### P TT, PT #### [facility] [address] [address] [address] Shine Del Rosario Urea nitrogen [Mass/Vol] 20.0 mg/dL Critically high 7.0-18.0 [facility] Comment on above: Performed By: #### P TT, PT #### [facility] [address] [place] [address] Dr. Shine Del Rosario Urea nitrogen/Creatinine [Mass ratio] 19.6 mg/mg Normal [facility] Comment on above: Performed By: #### P TT, PT #### [facility] [address] [address] [address] Shine Del Rosario XR CHEST 1 [...] GAMAL ARRIAZA Date: 2021-09-07 06:32 Normal [facility] CBC AUTO DIFFon 09-06-2021 BASO # 0.1 103/ul Normal 0.0-0.1 [facility] Comment on above: Performed By: #### P TT, PT #### [facility] [address] [address] [address] Shine Del Rosario Basophils/100 WBC (Bld) 0.7 % Normal 0.2-2.0 [facility] Comment on above: Performed By: #### P TT, PT #### [facility] [address] [place] [address] Dr. Shine Del Rosario EO # 0.3 103/ul Normal 0.0-0.7 [facility] Comment on above: Performed By: #### P TT, PT #### [facility] [address] [address] [address] Shine Del Rosario Eosinophils/100 WBC (Bld) 3.0 % Normal 0.9-7.0 [facility] Comment on above: Performed By: #### P TT, PT #### [facility] [address] [place] [address] Dr. Shine Del Rosario Erythrocyte distribution width (RBC) [Ratio] 12.3 % Normal 11.0-15.0 [facility] Comment on above: Performed By: #### P TT, PT #### [facility] [address] [place] [address] Dr. Shine Del Rosario Hematocrit (Bld) [Volume fraction] 22.2 % Critically low 36.0-48.0 [facility] Comment on above: Result Comment: repe ated Performed By: #### P TT, PT #### [facility] [address] [place] [address] Dr. Shine Del Rosario Hemoglobin (Bld) [Mass/Vol] 7.3 g/dL Critically low 12.0-16.0 [facility] Comment on above: Performed By: #### P TT, PT #### [facility] [address] [place] [address] Dr. Shine Del Rosario IG # 0.18 10e3/ul Critically high 0.00-0.03 [facility] Comment on above: Performed By: #### P TT, PT #### [facility] [address] [place] [address] Dr. Shine Del Rosario IG % 2.1 % Critically high 0.0-0.5 [facility] Comment on above: Performed By: #### P TT, PT #### [facility] [address] [place] [address] Dr. Shine Del Rosario LYMPH # 1.5 103/ul Normal 1.2-3.8 [facility] Comment on above: Performed By: #### P TT, PT #### [facility] [address] [place] [address] Dr. Shine Del Rosario Lymphocytes/100 WBC (Bld) 17.7 % Critically low 20.5-60.0 [facility] Comment on above: Performed By: #### P TT, PT #### [facility] [address] [place] [address] Dr. Shine Del Rosario MANUAL DIFF REQ NO Normal [facility] Comment on above: Performed By: #### P TT, PT #### [facility] [address] [place] [address] Dr. Sihne Del Rosario MCH (RBC) [Entitic mass] 32.0 pg Normal 26.7-34.0 [facility] Comment on above: Performed By: #### P TT, PT #### [facility] [address] [place] [address] Dr. Shine Del Rosario MCHC (RBC) [Mass/Vol] 32.9 g/dL Normal 29.9-35.2 [facility] Comment on above: Performed By: #### P TT, PT #### [facility] [address] [place] [address] Dr. Shine Del Rosario MCV (RBC) [Entitic vol] 97.4 fL Normal 81.0-99.0 [facility] Comment on above: Performed By: #### P TT, PT #### [facility] [address] [place] [address] Dr. Shine Del Rosario MONO # 1.2 103/ul Critically high 0.3-0.8 [facility] Comment on above: Performed By: #### P TT, PT #### [facility] [address] [place] [address] Dr. Shine Del Rosario Monocytes/100 WBC (Bld) 14.1 % Critically high 1.7-12.0 [facility] Comment on above: Performed By: #### P TT, PT #### [facility] [address] [place] [address] Dr. Shine Del Rosario NEUT # 5.4 103/ul Normal 1.4-6.5 [facility] Comment on above: Performed By: #### P TT, PT #### [facility] [address] [place] [address] Dr. Shine Del Rosario Neutrophils/100 WBC (Bld) 62.4 % Normal 43.0-75.0 [facility] Comment on above: Performed By: #### P TT, PT #### [facility] [address] [place] [address] Dr. Shine Del Rosario Platelet mean volume (Bld) [Entitic vol] 8.9 fL Critically low 9.5-13.5 [facility] Comment on above: Performed By: #### P TT, PT #### [facility] [address] [place] [address] Dr. Shine Del Rosario PLT 310 103/ul Normal 150-450 [facility] Comment on above: Performed By: #### P TT, PT #### [facility] [address] [address] [address] Shine Del Rosario RBC 2.28 106/ul Critically low 4.20-5.40 [facility] Comment on above: Performed By: #### P TT, PT #### [facility] [address] [address] [address] Shine Del Rosario WBC 8.7 103/ul Normal 4.0-11.0 [facility] Comment on above: Performed By: #### P TT, PT #### [facility] [address] [address] [address] Shine Del Rosario IRON AND TIBCon 09-06-2021 % SATURATION 13.1 % Normal [facility] Comment on above: Performed By: #### P HVEN #### [facility] [address] [place] [address] Dr. Shine Del Rosario Iron [Mass/Vol] 30.0 ug/dL Critically low 50.0-170.0 [facility] Comment on above: Performed By: #### P HVEN #### [facility] [address] [place] [address] Dr. Shine Del Rosario TIBC DIRECT 229.0 ug/dL Critically low 250.0-450. 0 [facility] Comment on above: Performed By: #### P HVEN #### [facility] [address] [place] [address] Dr. Shine Del Rosario MRI LSPINE WO [...] PAWAN GEORGE Date: 2021-09-06 12:53 Normal [facility] PROF CHEM 8 (BAS METB)on Anion gap [Moles/Vol] 10.9 mmol/L Normal [facility] Comment on above: Performed By: #### B MP #### [facility] [address] [address] [address] Shine Del Rosario Calcium [Mass/Vol] 8.1 mg/dL Critically low 8.5-10.1 [facility] Comment on above: Performed By: #### B MP #### [facility] [address] [address] [address] Shine Del Rosario Chloride [Moles/Vol] 95 mmol/L Critically low 98-107 [facility] Comment on above: Performed By: #### B MP #### [facility] [address] [address] [address] Shine Del Rosario CO2 [Moles/Vol] 25.6 mmol/L Normal 21.0-32.0 [facility] Comment on above: Performed By: #### B MP #### [facility] [address] [address] [address] Shine Del Rosario Creatinine [Mass/Vol] 0.77 mg/dL Normal 0.55-1.02 [facility] Comment on above: Performed By: #### B MP #### [facility] [address] [address] [address] Shine Del Rosario EGFR-AF [place] >60 Normal >=60 [facility] Comment on above: Performed By: #### B MP #### [facility] [address] [address] [address] Shine Del Rosario EGFR-NON AF [place] >60 Normal >=60 [facility] Comment on above: Performed By: #### B MP #### [facility] [address] [address] [address] Shine Del Rosario Glucose [Mass/Vol] 103 mg/dL Normal 74-106 [facility] Comment on above: Performed By: #### B MP #### [facility] [address] [address] [address] Shine Del Rosario Potassium [Moles/Vol] 3.5 mmol/L Normal 3.5-5.1 [facility] Comment on above: Performed By: #### B MP #### [facility] [address] [address] [address] Shine Del Rosario Sodium [Moles/Vol] 128 mmol/L Critically low 136-145 Th [facility] Comment on above: Performed By: #### B MP #### [facility] [address] [address] [address] Shine Del Rosario Urea nitrogen [Mass/Vol] 14.0 mg/dL Normal 7.0-18.0 [facility] Comment on above: Performed By: #### B MP #### [facility] [address] [address] [address] Shine Del Rosario Urea nitrogen/Creatinine [Mass ratio] 18.2 mg/mg Normal [facility] Comment on above: Performed By: #### B MP #### [facility] [address] [place] [address] Dr. Shine Del Rosario US SINGLE QUAD [...] by: PAWAN GEORGE Date: 2021-09-06 11:01 Normal [facility] XR CHEST 1 Von 09-06-2021 XR CHEST [...] RITIKA HILLIARD Date: 2021-09-06 06:05 Normal [facility] BNPon 09-05-2021 Natriuretic peptide B (Bld) [Mass/Vol] 744.0 pg/mL Normal <=900.0 [facility] Comment on above: Performed By: #### B MP #### [facility] [address] [address] [address] Shine Del Rosario CARDIAC WILD ADMITon 022 CK [Catalytic activity/Vol] 211 U/L Critically high 26-192 [facility] Comment on above: Performed By: #### B MP #### [facility] [address] [address] [address] Shine Del Rosario CK.MB [Mass/Vol] 2.15 ng/mL Normal <=3.60 [facility] Comment on above: Performed By: #### B MP #### [facility] [address] [place] [address] Dr. Shine Del Rosario HSTROP 12.4 pg/mL Normal 4.0-51.3 [facility] Comment on above: Result Comment: CUT- OFF POINTS HAVE BEEN ESTABLISHED BASED ON THE FOURTH UNIVERSAL DEFINITIONS OF MYOCARDIAL INFARCTION. THE UPPER REFERENCE LIMIT (URL) OF TROPONIN, DEFINED THE 99TH PERCENTILE OF cTnI DISTRIBUTION IN A REFERENCE POPULATION, HAS BEEN CONFIRMED THE DECISION THRESHOLD FOR [place] DIAGNOSIS. Performed By: #### B MP #### [facility] [address] [place] [address] Dr. Shine Del Rosario YANG 176 ng/mL Critically high 9-82 [facility] Comment on above: Performed By: #### B MP #### [facility] [address] [place] [address] Dr. Shine Del Rosario CBC AUTO DIFFon 09-05-2021 BASO # 0.0 103/ul Normal 0.0-0.1 [facility] Comment on above: Performed By: #### B MP #### [facility] [address] [place] [address] Dr. Shine Del Rosario Basophils/100 WBC (Bld) 0.3 % Normal 0.2-2.0 [facility] Comment on above: Performed By: #### B MP #### [facility] [address] [place] [address] Dr. Shine Del Rosario EO # 0.1 103/ul Normal 0.0-0.7 [facility] Comment on above: Performed By: #### B MP #### [facility] [address] [place] [address] Dr. Shine Del Rosario Eosinophils/100 WBC (Bld) 0.4 % Critically low 0.9-7.0 [facility] Comment on above: Performed By: #### B MP #### [facility] [address] [place] [address] Dr. Shine Del Rosario Erythrocyte distribution width (RBC) [Ratio] 12.0 % Normal 11.0-15.0 [facility] Comment on above: Performed By: #### B MP #### [facility] [address] [place] [address] Dr. Shine Del Rosario Hematocrit (Bld) [Volume fraction] 25.8 % Critically low 36.0-48.0 [facility] Comment on above: Performed By: #### B MP #### [facility] [address] [place] [address] Dr. Shine Del Rosario Hemoglobin (Bld) [Mass/Vol] 8.8 g/dL Critically low 12.0-16.0 [facility] Comment on above: Performed By: #### B MP #### [facility] [address] [place] [address] Dr. Shine Del Rosario IG # 0.19 10e3/ul Critically high 0.00-0.03 [facility] Comment on above: Performed By: #### B MP #### [facility] [address] [place] [address] Dr. Shine Del Rosario IG % 1.6 % Critically high 0.0-0.5 [facility] Comment on above: Performed By: #### B MP #### [facility] [address] [place] [address] Dr. Shine Del Rosario LYMPH # 1.1 103/ul Critically low 1.2-3.8 [facility] Comment on above: Performed By: #### B MP #### [facility] [address] [place] [address] Dr. Shine Del Rosario Lymphocytes/100 WBC (Bld) 9.9 % Critically low 20.5-60.0 [facility] Comment on above: Performed By: #### B MP #### [facility] [address] [place] [address] Dr. Shine Del Rosario MANUAL DIFF REQ NO Normal [facility] Comment on above: Performed By: #### B MP #### [facility] [address] [place] [address] Dr. Shine Del Rosario MCH (RBC) [Entitic mass] 32.2 pg Normal 26.7-34.0 [facility] Comment on above: Performed By: #### B MP #### [facility] [address] [address] [address] Shine Del Rosario MCHC (RBC) [Mass/Vol] 34.1 g/dL Normal 29.9-35.2 [facility] Comment on above: Performed By: #### B MP #### [facility] [address] [address] [address] Shine Del Rosario MCV (RBC) [Entitic vol] 94.5 fL Normal 81.0-99.0 [facility] Comment on above: Performed By: #### B MP #### [facility] [address] [address] [address] Shine Del Rosario MONO # 1.1 103/ul Critically high 0.3-0.8 [facility] Comment on above: Performed By: #### B MP #### [facility] [address] [place] [address] Dr. Shine Del Rosario Monocytes/100 WBC (Bld) 9.7 % Normal 1.7-12.0 [facility] Comment on above: Performed By: #### B MP #### [facility] [address] [place] [address] Dr. Shine Del Rosario NEUT # 9.0 103/ul Critically high 1.4-6.5 [facility] Comment on above: Performed By: #### B MP #### [facility] [address] [place] [address] Dr. Shine Del Rosario Neutrophils/100 WBC (Bld) 78.1 % Critically high 43.0-75.0 [facility] Comment on above: Performed By: #### B MP #### [facility] [address] [address] [address] Shine Del Rosario Platelet mean volume (Bld) [Entitic vol] 9.1 fL Critically low 9.5-13.5 [facility] Comment on above: Performed By: #### B MP #### [facility] [address] [address] [address] Shine Del Rosario PLT 341 103/ul Normal 150-450 [facility] Comment on above: Performed By: #### B MP #### [facility] [address] [place], [place] [address] Dr. Shine Del Rosario RBC 2.73 106/ul Critically low 4.20-5.40 [facility] Comment on above: Performed By: #### B MP #### [facility] [id number] Shine Del Rosario WBC 11.6 103/ul Critically high 4.0-11.0 [facility] Comment on above: Performed By: #### B MP #### [facility] [id number] Shine Del Rosario CT CHEST WO [...] PAWAN GEORGE Date: 2021-09-05 12:46 Normal The [facility] CT CSPINE WO CONon CT CSPINE WO [...] SLOANE DIEHL Date: 2021-09-05 09:38 Normal [facility] Covid-19 PCR (CVDTB)on 08-13 SARS-CoV-2 (COVID-19) RNA LYLA+probe Ql (Unsp spec) Not detected Normal NOT DETECTED [facility] Comment on above: Result Comment: When diagnostic [...] for this test is supported by the Program Director/Air Personality of Health and Human Service's declaration that [...] used). Performed By: #### B MP #### [facility] [address] [place] [address] Dr. Shine Del Rosario ER URINE PROFILEon 2 Bilirubin Ql (U) Negative Normal NEGATIVE [facility] Comment on above: Performed By: #### P HVEN #### [facility] [address] [place] [address] Dr. Shine Del Rosario Clarity (U) CLEAR Normal CLEAR [facility] Comment on above: Performed By: #### P HVEN #### [facility] [address] [place] [address] Dr. Shine Del Rosario Color (U) LT. YELLOW Normal YELLOW [facility] Comment on above: Performed By: #### P HVEN #### [facility] [address] [place] [address] Dr. Shine ARDON A micrscopic examina tion will be performed if indicated. Normal The [facility] Comment on above: Performed By: #### P HVEN #### [facility] [address] [place] [address] Dr. Shine Del Rosario Glucose Ql (U) Negative Normal NEGATIVE [facility] Comment on above: Performed By: #### P HVEN #### [facility] [address] [place] [address] Dr. Shine Del Rosario Hemoglobin Ql (U) Negative Normal NEGATIVE [facility] Comment on above: Performed By: #### P HVEN #### [facility] [address] [place] [address] Dr. Shine Del Rosario Ketones Ql (U) Negative Normal NEGATIVE [facility] Comment on above: Performed By: #### P HVEN #### [facility] [address] [place] [address] Dr. Shine Del Rosario LEUKOCYTES Negative Normal NEGATIVE [facility] Comment on above: Performed By: #### P HVEN #### [facility] [address] [place] [address] Dr. Shine Del Rosario Nitrite Ql (U) Negative Normal NEGATIVE [facility] Comment on above: Performed By: #### P HVEN #### [facility] [address] [place] [address] Dr. Shine Del Rosario pH (U) 6.0 [pH] Normal 5-9 [facility] Comment on above: Performed By: #### P HVEN #### [facility] [address] [place] [address] Dr. Shine Del Rosario SPEC GRAVITY 1.010 Normal 1.005-<=1. 025 [facility] Comment on above: Performed By: #### P HVEN #### [facility] [address] [place] [address] Dr. Shine Del Rosario UA PROTEIN Negative Normal NEGATIVE/ TRACE [facility] Comment on above: Performed By: #### P HVEN #### [facility] [address] [place] [address] Dr. Shine Del Rosario UR MICRO IND NOT INDICATED Normal [facility] Comment on above: Performed By: #### P HVEN #### [facility] [address] [place] [address] Dr. Shine Del Rosario Urobilinogen Qn (U) 0.2 {Estela'U}/dL Normal 0.2 - 1. 0 [facility] Comment on above: Performed By: #### P HVEN #### [facility] [address] [place] [address] Dr. Shine Del Rosario ETHANOL (BLD ALC)on 09-06-19 ALC NOTE NOTE: 80 mg/dl is th e legal limit for a blood alcohol level Normal [facility] Comment on above: Performed By: #### L IVER #### [facility] [address] [place] [address] Dr. Shine Del Rosario Ethanol [Mass/Vol] mg/dL Normal [facility] Comment on above: Performed By: #### L IVER #### [facility] [address] [place] [address] Dr. Shine Del Rosario INFLUENZA A AND B AGon 09-05 INFLUANEGH SEE BELOW Normal [facility] Comment on above: Result Comment: Nega tive for Flu A protein angiten. Infection due to Flu A cannot be ruled out. Flu A angiten in the sample may be below the detection limit of the test. Performed By: #### I NFLUAB #### [facility] [address] [place] [address] Dr. Shine Del Rosario INFLUBNEGH SEE BELOW Normal [facility] Comment on above: Result Comment: Nega tive for Flu B protein antigen. Infection due to Flu B cannot be ruled out. Flu B antigen in the sample may be below the detection limit of the test. Performed By: #### I NFLUAB #### [facility] [address] [place] [address] Dr. Shine Del Rosario INFLUENZA A AG Negative Normal NEGATIVE SEE COMMENT [facility] Comment on above: Performed By: #### I NFLUAB #### [facility] [address] [place] [address] Dr. Shine Del Rosario INFLUENZA B AG Negative Normal NEGATIVE SEE COMMENT [facility] Comment on above: Performed By: #### I NFLUAB #### [facility] [address] [place] [address] Dr. Shine Del Rosario INTERNAL CONTROLS Within Normal Limits Normal Wi thin Normal Limits [facility] Comment on above: Performed By: #### I NFLUAB #### [facility] [address] [place] [address] Dr. Shine Del Rosario PH VENOUS BLOODon 09-05-2021 PCO2 VENOUS 37.8 mmHg Critically low 40.0-52.0 [facility] Comment on above: Performed By: #### P HVEN #### [facility] [address] [place] [address] Dr. Shine Del Rosario pH VENOUS 7.416 Normal 7.330-7.43 0 [facility] Comment on above: Performed By: #### P HVEN #### [facility] [address] [address] [address] Shine Del Rosario PROF 14(COMP METB)on 022 Albumin [Mass/Vol] 3.2 g/dL Critically low 3.4-5.0 Th e [facility] Comment on above: Performed By: #### B MP #### [facility] [address] [place] [address] Dr. Shine Del Rosario Albumin/Globulin [Mass ratio] 0.8 {ratio} Normal [facility] Comment on above: Performed By: #### B MP #### [facility] [address] [place] [address] Dr. Shine Del Rosario ALP [Catalytic activity/Vol] 111 U/L Normal 46-116 [facility] Comment on above: Performed By: #### B MP #### [facility] [address] [place] [address] Dr. Shine Del Rosario ALT [Catalytic activity/Vol] 72 U/L Critically high 14-59 [facility] Comment on above: Performed By: #### B MP #### [facility] [address] [place] [address] Dr. Shine Del Rosario Anion gap [Moles/Vol] 16.0 mmol/L Normal [facility] Comment on above: Performed By: #### B MP #### [facility] [address] [place] [address] Dr. Shine Del Rosario AST [Catalytic activity/Vol] 54 U/L Critically high 15-37 [facility] Comment on above: Performed By: #### B MP #### [facility] [address] [place] [address] Dr. Shine Del Rosario Bilirubin [Mass/Vol] 1.4 mg/dL Critically high 0.2-1.0 [facility] Comment on above: Performed By: #### B MP #### [facility] [address] [place] [address] Dr. Shine Del Rosario Calcium [Mass/Vol] 8.5 mg/dL Normal 8.5-10.1 [facility] Comment on above: Performed By: #### B MP #### [facility] [address] [address] [address] Shine Del Rosario Chloride [Moles/Vol] 85 mmol/L Critically low 98-107 [facility] Comment on above: Performed By: #### B MP #### [facility] [address] [address] [address] Shine Del Rosario CO2 [Moles/Vol] 22.7 mmol/L Normal 21.0-32.0 [facility] Comment on above: Performed By: #### B MP #### [facility] [address] [address] [address] Shine Del Rosario Creatinine [Mass/Vol] 1.03 mg/dL Critically high 0.55-1.02 [facility] Comment on above: Performed By: #### B MP #### [facility] [address] [place] [address] Dr. Shine Del Rosario EGFR-AF [place] >60 Normal >=60 [facility] Comment on above: Performed By: #### B MP #### [facility] [address] [place] [address] Dr. Shine Del Rosario EGFR-NON AF [place] 54 mL/min/1.73m2 Critically low >=60 [facility] Comment on above: Performed By: #### B MP #### [facility] [address] [place] [address] Dr. Shine Del Rosario Globulin (S) [Mass/Vol] 3.8 g/dL Normal [facility] Comment on above: Performed By: #### B MP #### [facility] [address] [address] [address] Shine Del Rosario Glucose [Mass/Vol] 136 mg/dL Critically high 74-[address] [facility] Comment on above: Performed By: #### B MP #### [facility] [address] [address] [address] Shine Del Rosario Potassium [Moles/Vol] 2.7 mmol/L Critically low 3.5-5.1 [facility] Comment on above: Performed By: #### B MP #### [facility] [address] [place] [address] Dr. Shine Del Rosario Protein [Mass/Vol] 7.0 g/dL Normal 6.1-8.2 [facility] Comment on above: Performed By: #### B MP #### [facility] [address] [place] [address] Dr. Shine Del Rosario Sodium [Moles/Vol] 120 mmol/L Critically low 136-145 Th e [facility] Comment on above: Performed By: #### B MP #### [facility] [address] [place] [address] Dr. Shine Del Rosario Urea nitrogen [Mass/Vol] 16.0 mg/dL Normal 7.0-18.0 [facility] Comment on above: Performed By: #### B MP #### [facility] [address] [place] [address] Dr. Shine Del Rosario Urea nitrogen/Creatinine [Mass ratio] 15.5 mg/mg Normal [facility] Comment on above: Performed By: #### B MP #### [facility] [address] [place] [address] Dr. Shine Del Rosario PROTIMEon 09-05-2021 INR Coag (PPP) [Relative time] 0.96 {INR} Normal [facility] Comment on above: Performed By: #### P TT, PT #### [facility] [address] [place] [address] Dr. Shine Del Rosario INR GUIDELINES SEE BELOW Normal [facility] Comment on above: Result Comment: JUDY RED INR: 2.0 - 3.0 CONDITIONS NOT LISTED BELOW 2.5 - 3.5 FOR PROSTHETIC HEART VALVE REPLACEMENT 2.5 - 3.5 RECURRENT THROMBOSIS Performed By: #### P TT, PT #### [facility] [address] [place] [address] Dr. Shine Del Rosario PT Coag (PPP) [Time] 10.4 s Normal 9.0-11.6 [facility] Comment on above: Performed By: #### P TT, PT #### [facility] [address] [place] [address] Dr. Shine Del Rosario PTTon 09-05-2021 aPTT Coag (Bld) [Time] 37.6 s Critically high 22.3-36.2 [facility] Comment on above: Performed By: #### P TT, PT #### [facility] [address] [address] [address] Shine Del Rosario SODIUM RANDOM URINEon 2021 Sodium (U) [Moles/Vol] 20 mmol/L Critically low 30-90 [facility] Comment on above: Performed By: #### B MP #### [facility] [address] [address] [address] Shine Del Rosario TSHon 09-05-2021 TSH 1.734 uIU/mL Normal 0.470-4.68 0 [facility] Comment on above: Performed By: #### B MP #### [facility] [address] [place] [address] Dr. Shine Del Rosario TSH RANGE SEE BELOW Normal [facility] Comment on above: Result Comment: <0.3 4 UIU/ml HYPERTHYROID 0.34-5.60 UIU/ml EUTHYROID >5.60 UIU/ml HYPOTHYROID Performed By: #### B MP #### [facility] [address] [place] [address] Dr. Shine Del Rosario XR CHEST 1 [...] PAWAN GEORGE Date: 2021-09-05 09:25 Normal [facility] CT chest wo conon 07-25-2018 CT chest wo con [facility] [place] [address] CT Scan Report Signed Patient: Catherine Adamson MR#: [id number] : 1960 Acct:[id number] Age/Sex: 58 / F ADM Date: 07/25/18 Loc: Room: Type: [facility] Attending Dr: Judy Baltazar MD Ordering [...] Wild Cardoso M.D.07/25/2018 1:57 PM Dictation Location: [place] [address] Transcribed By: SOLOMON 07/25/18 1353 Dictated By: Wild Cardoso II, MD 07/25/18 1351 Signed By: 07/25/18 1359 [facility] US renal BIon 07-25-2018 US renal BI [facility] [place] [address] Ultrasound Report Signed Patient: Catherine Adamson MR#: [id number] : 1960 Acct:[id number] Age/Sex: 58 / F ADM Date: 07/25/18 Loc: Room: Type: [facility] Attending Dr: Judy Baltazar MD Ordering [...] Wild Cardoso M.D.07/25/2018 1:47 PM Dictation Location: [place] [address] Tech: Julia Foreman Transcribed By: SOLOMON 07/25/18 1347 Dictated By: Wild Cardoso II, MD 07/25/18 1346 Signed By: 07/25/18 1347 [facility] Discharge Summaryon 02-16-20 Discharge Summary MR#: [id number] [facility] Pt. Name: Catherine Adamson Admitted: 02/12/2017 Discharged: 02/14/2017 Date of : 1960 Physician: Wanda Wheeler M.D. 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 She stated the pain radiatedto her left jaw and caused numbness in her left arm and was also associatedwith anxiety. This prompted her to call 911, and take 4 baby aspirin. Shesaid her pain was relieved mildly with the 4 baby aspirin and was relievedwith 2 tablets of nitroglycerin which she was given in the emergencydepartment. She presented to the [facility] Emergency Department where EKG wasperformed, sinus rhythm [...] beengiven instructions to follow up with the water hauler at [facility] on and will undergo cardiac rehab as [...] Temperature 98.1, pulse 81, respirations 18, blood rdgojoow426/85, oxygen saturation 98% on room air.GENERAL: Alert [...] TIME OF DISCHARGE: Sodium 139, potassium 3.6, tvyumpyc650, carbon dioxide 24, calcium 8.9, GFR greater [...] Dict: 02/14/2017/04:05 Dulce/Leighton Goetz Trans: 02/15/2017 03:46 A/[id number]: Addy Zhong D.O. [address] [facility] [address] Normal [facility] BASIC METABOLIC PANELon 10-0 Calcium 8.9 mg/dL Normal 8.6-10.3 [facility] Comment on above: Order Comment: No: D o not add to previous draw Performed By: #### 5 0103 ####[facility] [place] [address], [facility] Chloride 107 mmol/L Normal 98-107 [facility] Comment on above: Order Comment: No: D o not add to previous draw Performed By: #### 5 0103 ####[facility] [place] [address], [facility] CO2 24 mmol/L Normal 21-31 [facility] Comment on above: Order Comment: No: D o not add to previous draw Performed By: #### 5 0103 ####[facility] [place] [address], [place] Creatinine 0.55 mg/dL Low 0.60-1.20 [facility] Comment on above: Order Comment: No: D o not add to previous draw Performed By: #### 5 0103 ####[facility] [place] [address], [place] eGFR (black) mL/min/{1.73_m2} Normal >60 [facility] Comment on above: Order Comment: No: D o not add to previous draw Performed By: #### 5 0103 ####[facility] [place] [address], [place] eGFR (non-black) mL/min/{1.73_m2} Normal >60 [facility] Comment on above: Order Comment: No: D o not add to previous draw Performed By: #### 5 0103 ####[facility] [place] [address], [facility] Glucose mass conc 85 mg/dL Normal 70-100 [facility] Comment on above: Order Comment: No: D o not add to previous draw Performed By: #### 5 0103 ####[facility] [place] [address], [facility] Potassium molar conc 3.6 mmol/L Normal 3.5-5.1 [facility] Comment on above: Order Comment: No: D o not add to previous draw Performed By: #### 5 3 ####[facility] [place] [address], [facility] Sodium 139 mmol/L Normal 136-145 [facility] Comment on above: Order Comment: No: D o not add to previous draw Performed By: #### 5 3 ####[facility] [place] [address], [facility] Urea nitrogen 8 mg/dL Normal 7-25 [facility] Comment on above: Order Comment: No: D o not add to previous draw Performed By: #### 5 3 ####[facility] [place] [address], [facility] CBC COMPLETE BLOOD COUNTon 1 - Erythrocyte distribution width Auto Ratio (RBC) 13.0 % Normal 11.5-16.9 [facility] Comment on above: Order Comment: No: D o not add to previous draw Performed By: #### 5 3 ####[facility] [place] [address], [facility] Erythrocytes (RBC) 3.51 mill/mm3 Normal 3.50-5.50 [facility] Comment on above: Order Comment: No: D o not add to previous draw Performed By: #### 5 0103 ####[facility] Hematocrit (HCT) 33.4 % Low 36.0-48.0 [facility] Comment on above: Order Comment: No: D o not add to previous draw Performed By: #### 5 0103 ####[facility] Hemoglobin mass conc (Bld) 11.0 g/dL Low 12.0-15.0 [facility] Comment on above: Order Comment: No: D o not add to previous draw Performed By: #### 5 0103 ####[facility] [place] [address] MCH 31.4 pg Normal 24.0-32.0 [facility] Comment on above: Order Comment: No: D o not add to previous draw Performed By: #### 5 0103 ####[facility] [facility].[address] MCHC mass conc (RBC) 33.0 g/dL Normal 32.0-36.0 [facility] Comment on above: Order Comment: No: D o not add to previous draw Performed By: #### 5 0103 ####[facility] [facility].[address] MCV 95.1 fL Normal 80.0-100.0 [facility] Comment on above: Order Comment: No: D o not add to previous draw Performed By: #### 5 0103 ####[facility] [facility] [place] [place] [address], [facility] PLAT CNT 352 Thou/mm3 Normal 100-400 [facility] Comment on above: Order Comment: No: D o not add to previous draw Performed By: #### 5 0103 ####[facility] WBC (Leukocytes) 6.1 Thou/mm3 Normal 4.0-10.0 [facility] Comment on above: Order Comment: No: D o not add to previous draw Performed By: #### 5 0103 ####[facility] Cardiovascular Lab Reporton 02-14-2017 Cardiovascular Lab Report [facility] Patient Name: Catherine Adamson [facility] MR #: [id number] Physician: Juaquin Blum M.D.Medicine Service Date: 02/13/2017Division of Birthdate: 1960Cardiology Room #: 3AB [id number] CardiovascularServicesUniversi [facility] CenterVzrvcqnYbemvd[address] [place], [place] [address]Lxqyo Fax Cardiovascular Laboratory ReportCARDIAC CATHETERIZATION REPORTINDICATION:Catherine Adamson is a 56-year-old woman, who was admitted with recurrentepisodes of chest pain and mild elevation of cardiac enzymes. She wasreferred to the hemodialysis lab technician as a non ST-segment elevation [...] Shesigned informed consent. She was brought to hemodialysis lab technician in a fasting state.Ez's test was favorable on the left. Access in the left radial arterywas obtained using micropuncture technique. A 6-Kosovan x 11 cm sheath wasplaced. A verapamil was given through the sheath and heparin wasadministered intravenously. Bilateral selective coronary angiography wasthen performed using 6-Kosovan JL4 and JR4 diagnostic catheters. Catheterswere removed.Heparin was administered intravenously and therapeutic ACT confirmed duringthe procedure. A 6-Kosovan XB 3.0 guiding catheter was advanced and used toengage left main coronary ostium. A Prowater wire was advanced into thedistal circumflex. Balloon angioplasty in the mid circumflex was performedusing an Emerge 2.5 x 15 mm balloon inflated at 12 atmospheres.Angiography revealed suboptimal results. This was treated using a PROMUSPremier 2.75 x 20 mm drug-eluting stent deployed at 11 atmospheres andpost-dilated using NC [employer] [place] 3.0 x 15 mm noncompliant ballooninflated at [...] 02/13/2017/12:28 P/Juaquin Roberto M.D.Date Trans: 02/14/2017 09:31 A/[id number]_[id number]: Addy Zhong D.O. [address] [place] [address] Normal [facility] MAGNESIUM BLOODon 02-14-2017 Magnesium 2.0 mg/dL Normal 1.9-2.7 [facility] Comment on above: Performed By: #### 5 0103 ####[facility] [place] [address], [facility] TROPONIN-Ion 02-14-2017 Troponin I.cardiac mass conc 0.17 ng/mL High 0.00-0.04 [facility] Comment on above: Result Comment: REFE RENCE RANGES: 0.00 - 0.04 ng/ml NORMAL 0.05 - 0.50 ng/ml INDETERMINATE > 0.50 ng/ml CONSISTENT WITH AN M.I. Performed By: #### 5 0103 ####[facility] [place] [address], [facility] APTTon 02-13-2017 aPTT 39.1 s High 25.0-35.0 [facility] Comment on above: Order Comment: No: [...] THIS PURPOSE. Performed By: #### 5 6101, 47976 ####[facility] [facility].[address] BASIC METABOLIC PANELon 10-0 Calcium 8.9 mg/dL Normal 8.6-10.3 [facility] Comment on above: Order Comment: No: D o not add to previous draw Performed By: #### 3 5200, 69506, 92400, 56419 ####[facility] [facility].[address] Chloride 105 mmol/L Normal 98-107 [facility] Comment on above: Order Comment: No: D o not add to previous draw Performed By: #### 3 5200, 29108, 26514, 72034 ####[facility] [facility].[address] CO2 25 mmol/L Normal 21-31 [facility] Comment on above: Order Comment: No: D o not add to previous draw Performed By: #### 3 5200, 94727, 25995, 37932 ####[facility] [facility].[address] Creatinine 0.51 mg/dL Low 0.60-1.20 [facility] Comment on above: Order Comment: No: D o not add to previous draw Performed By: #### 3 5200, 90221, 16758, 26667 ####[facility] [facility].[address] eGFR (black) mL/min/{1.73_m2} Normal >60 [facility] Comment on above: Order Comment: No: D o not add to previous draw Performed By: #### 3 5200, 74115, 30772, 47573 ####[facility] [facility] [place] [address], [place] eGFR (non-black) mL/min/{1.73_m2} Normal >60 [facility] Comment on above: Order Comment: No: D o not add to previous draw Performed By: #### 3 5200, 49723, 48780, 21949 ####[facility] [place] [address], [facility] Glucose mass conc 80 mg/dL Normal 70-100 [facility] Comment on above: Order Comment: No: D o not add to previous draw Performed By: #### 3 5200, 00668, 29839, 22042 ####[facility] [place] [address], [facility] Potassium molar conc 3.7 mmol/L Normal 3.5-5.1 [facility] Comment on above: Order Comment: No: D o not add to previous draw Performed By: #### 3 5200, 15562, 33433, 36547 ####[facility] [place] [address], [facility] Sodium 137 mmol/L Normal 136-145 [facility] Comment on above: Order Comment: No: D o not add to previous draw Performed By: #### 3 5200, 02386, 49751, 69995 ####[facility] [place] [address], [facility] Urea nitrogen 11 mg/dL Normal 7-25 [facility] Comment on above: Order Comment: No: D o not add to previous draw Performed By: #### 3 5200, 47803, 73792, 82551 ####[facility] [place] [address], [facility] CBC COMPLETE BLOOD COUNTon 1 - Erythrocyte distribution width Auto Ratio (RBC) 12.5 % Normal 11.5-16.9 [facility] Comment on above: Order Comment: No: D o not add to previous draw Performed By: #### 5 0608 ####[facility] Erythrocytes (RBC) 3.88 mill/mm3 Normal 3.50-5.50 [facility] Comment on above: Order Comment: No: D o not add to previous draw Performed By: #### 5 0608 ####[facility] Hematocrit (HCT) 36.5 % Normal 36.0-48.0 [facility] Comment on above: Order Comment: No: D o not add to previous draw Performed By: #### 5 0608 ####[facility] [facility].[address] Hemoglobin mass conc (Bld) 12.3 g/dL Normal 12.0-15.0 [facility] Comment on above: Order Comment: No: D o not add to previous draw Performed By: #### 5 0608 ####[facility] [facility].[address] MCH 31.7 pg Normal 24.0-32.0 [facility] Comment on above: Order Comment: No: D o not add to previous draw Performed By: #### 5 0608 ####[facility] [facility].[address] MCHC mass conc (RBC) 33.7 g/dL Normal 32.0-36.0 [facility] Comment on above: Order Comment: No: D o not add to previous draw Performed By: #### 5 0608 ####[facility] [facility].[address] MCV 94.1 fL Normal 80.0-100.0 [facility] Comment on above: Order Comment: No: D o not add to previous draw Performed By: #### 5 0608 ####[facility] [place] [address], [facility] PLAT CNT 361 Thou/mm3 Normal 100-400 [facility] Comment on above: Order Comment: No: D o not add to previous draw Performed By: #### 5 0608 ####[facility] WBC (Leukocytes) 5.6 Thou/mm3 Normal 4.0-10.0 [facility] Comment on above: Order Comment: No: D o not add to previous draw Performed By: #### 5 0608 ####[facility] CBC W/DIFFon 02-13-2017 Basophils Auto #/vol (Bld) 0.0 % Normal 0.0-2.0 [facility] Comment on above: Order Comment: No: D o not add to previous draw Performed By: #### 5 0103 ####[place] [address] [facility].[address] Eosinophils/100 leukocytes 0.0 % Normal 0.0-5.0 [facility] Comment on above: Order Comment: No: D o not add to previous draw Performed By: #### 5 0103 ####[facility] [facility].[address] Erythrocyte distribution width Auto Ratio (RBC) 12.7 % Normal 11.5-16.9 [facility] Comment on above: Order Comment: No: D o not add to previous draw Performed By: #### 5 0103 ####[facility] Erythrocytes (RBC) 3.61 mill/mm3 Normal 3.50-5.50 [facility] Comment on above: Order Comment: No: D o not add to previous draw Performed By: #### 5 0103 ####[facility] [facility].[address] Hematocrit (HCT) 34.0 % Low 36.0-48.0 [facility] Comment on above: Order Comment: No: D o not add to previous draw Performed By: #### 5 0103 ####[facility] Hemoglobin mass conc (Bld) 11.4 g/dL Low 12.0-15.0 [facility] Comment on above: Order Comment: No: D o not add to previous draw Performed By: #### 5 0103 ####[facility] Lymphocytes/100 leukocytes 58.0 % High 20.0-40.0 [facility] Comment on above: Order Comment: No: D o not add to previous draw Performed By: #### 5 0103 ####[address] MCH 31.7 pg Normal 24.0-32.0 [facility] Comment on above: Order Comment: No: D o not add to previous draw Performed By: #### 5 3 ####[facility] MCHC mass conc (RBC) 33.6 g/dL Normal 32.0-36.0 [facility] Comment on above: Order Comment: No: D o not add to previous draw Performed By: #### 5 0103 ####[facility] [place] [address] MCV 94.3 fL Normal 80.0-100.0 [facility] Comment on above: Order Comment: No: D o not add to previous draw Performed By: #### 5 0103 ####[facility] METHOD Manual blood smear e xamination performed Normal [facility] Comment on above: Order Comment: No: D o not add to previous draw Performed By: #### 5 3 ####[facility] [place] [address], [facility] MONOS 7.0 % Normal 2-8 [facility] Comment on above: Order Comment: No: D o not add to previous draw Performed By: #### 5 0103 ####[facility] [place] [address], [facility] OTHER 1 NORMAL RED CELL MORP HOLOGY SEEN Normal [facility] Comment on above: Order Comment: No: D o not add to previous draw Performed By: #### 5 0103 ####[facility]3000 [facility] [place] [address], [facility] PLAT CNT 359 Thou/mm3 Normal 100-400 [facility] Comment on above: Order Comment: No: D o not add to previous draw Performed By: #### 5 0103 ####[facility] [facility].[address] SEGS 35.0 % Low 50-70 [facility] Comment on above: Order Comment: No: D o not add to previous draw Performed By: #### 5 0103 ####[facility] [facility].[address] WBC (Leukocytes) 6.2 Thou/mm3 Normal 4.0-10.0 [facility] Comment on above: Order Comment: No: D o not add to previous draw Performed By: #### 5 0103 ####[facility] LIPID PROFILEon 02-13-2017 Cholesterol 204 mg/dL High 120-200 [facility] Comment on above: Order Comment: No: D o not add to previous draw Result Comment: CHOL ESTEROL REFERENCE RANGE:20 YEARS AND OLDER CARDIOVASCULAR RISKLess than 200 mg/dl Low [id number] to 239 mg/dl Borderline Isgh743 mg/dl and greater High Risk Performed By: #### 5 0103 ####[facility] Cholesterol to HDL Ratio 3.5 {ratio} Normal .0-4.5 [facility] Comment on above: Order Comment: No: D o not add to previous draw Performed By: #### 5 0103 ####[facility] [facility].[address] HDL Cholesterol 59 mg/dL Normal 23-92 [facility] Comment on above: Order Comment: No: D o not add to previous draw Result Comment: Slig ht variation in normal range could be due to gender and/or age.HDL CHOLESTEROL REFERENCE RANGE:20 years and older Cardiovascular Risk> or =60 mg/dL [id number] TO 59 mg/dL Low Risk<40 mg/dL High Risk Performed By: #### 5 0103 ####[facility] LDL Cholesterol 135 mg/dL High 0-130 [facility] Comment on above: Order Comment: No: D o not add to previous draw Result Comment: LDL IS A CALCULATIONLDL IS ONLY VALID IF THE TRIG IS LESS THAN 400. Performed By: #### 5 0103 ####[facility] NON-HDL CHOLESTEROL 145 mg/dL Normal [facility] Comment on above: Order Comment: No: D o not add to previous draw Performed By: #### 5 0103 ####[facility] [facility].[address] Triglyceride 52 mg/dL Normal 40-149 [facility] Comment on above: Order Comment: No: D o not add to previous draw Result Comment: TRIG LYCERIDE REFERENCE RANGE:20 YEARS AND OLDER CARDIOVASCULAR RISKLESS THAN 150 mg/dl LOW [id number] TO 199 mg/dl BORDERLINE [id number] mg/dl AND GREATER HIGH RISK Performed By: #### 5 0103 ####[facility] [place] [address], [facility] VLDL CHOL 10 mg/dL Normal 0-40 [facility] Comment on above: Order Comment: No: D o not add to previous draw Performed By: #### 5 0103 ####[facility] [facility].[address] MAGNESIUM BLOODon 02-13-2017 Magnesium 1.8 mg/dL Low 1.9-2.7 [facility] Comment on above: Order Comment: No: D o not add to previous draw Performed By: #### 3 5200, 44741, 06934, 59964 ####[facility] [facility].[address] PHOSPHORUS BLOODon 7 Phosphate 3.0 mg/dL Normal 2.5-5.0 [facility] Comment on above: Order Comment: No: D o not add to previous draw Performed By: #### 3 5200, 55529, 66556, 94510 ####[facility] PROTHROMBIN TIMEon 7 INR Coag RelTime (PPP) 1.00 {INR} Normal 0.91-1.16 [facility] Comment on above: Order Comment: No: [...] OF ACTION, CLINICALEFFECTIVENESS, AND OPTIMAL THERAPEUTIC RANGE. [id number];108:[id number]-246S. Performed By: #### 5 6101, 55392 ####[place] [address] [facility].[address] Prothrombin time (PT) Coag time (PPP) 13.2 s Normal 12.3-14.8 [facility] Comment on above: Order Comment: No: D o not add to previous draw Result Comment: ALL RESULTS MUST BE INTERPRETED WITH RESPECT TO BLOOD DRAWING ARTIFACTOR DILUTION ERROR OF ANTICOAGULANT AT THE TIME OF SAMPLING. Performed By: #### 5 6101, 57077 ####[place] [address] [facility].[address] TROPONIN-Ion 02-13-2017 Troponin I.cardiac mass conc 0.28 ng/mL High 0.00-0.04 [facility] Comment on above: Result Comment: REFE RENCE RANGES: 0.00 - 0.04 ng/ml NORMAL 0.05 - 0.50 ng/ml INDETERMINATE > 0.50 ng/ml CONSISTENT WITH AN M.I. Performed By: #### 3 5200, 94295, 56857, 80597 ####[address] PORTABLE CHEST 1 VIEWon PORTABLE CHEST 1 [facility] [place] [address] Patient Name: CATHERINE ADAMSON : 1960Sex: FAge: Race: WhiteMRN: [id number]. Location: [id number] Status: IVisit #: [id number] Date: 02/12/2017 8:30:00 PMCompleted Date: 02/12/2017 08:51 PMRequesting Provider: AMBER POPE Attending Provider: WANDA WHEELER Report Copy To: Signs & Symptoms: Chest PainHistory: Patient history not availableComments: R/O EffusionExam: PORTABLE CHEST 1 VIEWAccession #: [id number] PORTABLE CHEST 1 VIEW 02/12/2017 8:51 PM [...] effusion Electronically signed by:Margarita Correia. Transcribed by: [email or web address], User Resident: Electronically Signed by: MARGARITA CORREIA @ 02/13/2017 08:42 AM Normal [facility] Comment on above: Order Comment: R/O E ffusion TROPONIN-Ion 02-12-2017 Troponin I.cardiac mass conc 0.20 ng/mL High 0.00-0.04 [facility] Comment on above: Order Comment: No: D o not add to previous draw Result Comment: REFE RENCE RANGES: 0.00 - 0.04 ng/ml NORMAL 0.05 - 0.50 ng/ml INDETERMINATE > 0.50 ng/ml CONSISTENT WITH AN M.I. Performed By: #### 3 5200 ####[facility] [place] [address], [facility] Vital Signs Date Time Vital Sign Value Performing Clinician Facility 06-05-2024 10:06-0500 Body height 158.75 cm [facility] 06-05-2024 10:06-0500 Body mass index (BMI) [Ratio] 24.3 kg/m2 [facility] 06-05-2024 10:06-0500 Body weight 61.23 kg [facility] 06-05-2024 10:06-0500 Diastolic blood pressure 71 mm[Hg] [facility] 06-05-2024 10:06-0500 Heart rate 90 /min [facility] 06-05-2024 10:06-0500 SaO2% (BldA) [Mass fraction] 97 % [facility] 06-05-2024 10:06-0500 Systolic blood pressure 117 mm[Hg] [facility] 04-21-2024 10:47-0500 Body height 158.75 cm [facility] 04-21-2024 10:47-0500 Body mass index (BMI) [Ratio] 24.7 kg/m2 [facility] 04-21-2024 10:47-0500 Body weight 62.25 kg [facility] 04-21-2024 10:47-0500 Diastolic blood pressure 71 mm[Hg] [facility] 04-21-2024 10:47-0500 Heart rate 86 /min [facility] 04-21-2024 10:47-0500 Systolic blood pressure 127 mm[Hg] [facility] 04-07-2024 10:41-0500 Body height 158.75 cm [facility] 04-07-2024 10:41-0500 Body mass index (BMI) [Ratio] 25 kg/m2 [facility] 04-07-2024 10:41-0500 Body weight 63.04 kg [facility] 04-07-2024 10:41-0500 Diastolic blood pressure 82 mm[Hg] [facility] 04-07-2024 10:41-0500 Heart rate 83 /min [facility] 04-07-2024 10:41-0500 Systolic blood pressure 173 mm[Hg] [facility] 01-29-2024 11:59-0400 Body height 158.75 cm [facility] 01-29-2024 11:59-0400 Body mass index (BMI) [Ratio] 24.8 kg/m2 [facility] 01-29-2024 11:59-0400 Body weight 62.59 kg [facility] 01-29-2024 11:59-0400 Diastolic blood pressure 84 mm[Hg] [facility] 01-29-2024 11:59-0400 Heart rate 78 /min [facility] 01-29-2024 11:59-0400 Systolic blood pressure 137 mm[Hg] [facility] 10-12-2023 15:00-0400 Hourly Rounding [facility] 10-12-2023 15:00-0400 Promise to Return [facility] 10-12-2023 14:00-0400 Hourly Rounding [facility] 10-12-2023 14:00-0400 Promise to Return [facility] 10-12-2023 13:00-0400 Hourly Rounding [facility] 10-12-2023 13:00-0400 Promise to Return [facility] 10-12-2023 11:28-0400 Heart rate 93 /min [facility] 10-12-2023 11:28-0400 SaO2% (BldA) [Mass fraction] 88 % [facility] 10-12-2023 11:27-0400 Diastolic blood pressure 60 mm[Hg] [facility] 10-12-2023 11:27-0400 Mean blood pressure 73 mm[Hg] [facility] 10-12-2023 11:27-0400 Systolic blood pressure 99 mm[Hg] [facility] 10-12-2023 11:26-0400 Body temperature 98.06 [degF] [facility] 10-12-2023 08:51-0400 Diastolic blood pressure 67 mm[Hg] [facility] 10-12-2023 08:51-0400 Heart rate 92 /min [facility] 10-12-2023 08:51-0400 Systolic blood pressure 116 mm[Hg] [facility] 10-12-2023 08:19-0400 Heart rate 86 /min [facility] 10-12-2023 08:19-0400 Respiratory rate 18 /min [facility] 10-12-2023 08:00-0400 Heart rate 85 /min [facility] 10-12-2023 08:00-0400 SaO2% (BldA) [Mass fraction] 98 % [facility] 10-12-2023 07:56-0400 SaO2% (BldA) [Mass fraction] 97 % [facility] 10-12-2023 07:55-0400 Diastolic blood pressure 67 mm[Hg] [facility] 10-12-2023 07:55-0400 Mean blood pressure 83 mm[Hg] [facility] 10-12-2023 07:55-0400 Systolic blood pressure 116 mm[Hg] [facility] 10-12-2023 07:55-0400 Body temperature 97.52 [degF] [facility] 10-12-2023 04:37-0400 Respiratory rate 18 /min [facility] 10-12-2023 03:10-0400 Body temperature 98.06 [degF] [facility] 10-12-2023 03:10-0400 Mean blood pressure 93 mm[Hg] [facility] 10-11-2023 08:49-0400 Heart rate 82 /min [facility] 10-11-2023 05:08-0400 Heart rate 87 /min [facility] 10-11-2023 05:00-0400 Blood Pressure Location [facility] 10-11-2023 05:00-0400 Body temperature 97.7 [degF] [facility] 10-11-2023 00:00-0400 Body temperature 97.52 [degF] [facility] 10-10-2023 08:33-0400 Heart rate 98 /min [facility] 10-10-2023 00:12-0400 Blood Pressure Location [facility] 10-10-2023 00:12-0400 Mean blood pressure 78 mm[Hg] [facility] 10-09-2023 19:31-0400 Blood Pressure Location [facility] 10-09-2023 18:25-0400 Mean blood pressure 108 mm[Hg] [facility] 10-09-2023 18:25-0400 Respiratory rate 17 /min [facility] 10-09-2023 18:15-0400 Mean blood pressure 101 mm[Hg] [facility] 10-09-2023 18:15-0400 Respiratory rate 13 /min [facility] 10-09-2023 18:10-0400 Respiratory rate 15 /min [facility] 10-09-2023 04:00-0400 Body temperature 97.52 [degF] [facility] 10-08-2023 18:41-0400 Heart rate 124 /min [facility] 10-08-2023 18:27-0400 Heart rate 122 /min [facility] 09-10-2023 09:34-0400 Body height 158.75 cm [facility] 09-10-2023 09:34-0400 Body mass index (BMI) [Ratio] 26.6 kg/m2 [facility] 09-10-2023 09:34-0400 Body weight 67.3 kg [facility] 09-10-2023 09:34-0400 Diastolic blood pressure 72 mm[Hg] [facility] 09-10-2023 09:34-0400 Heart rate 76 /min [facility] 09-10-2023 09:34-0400 Systolic blood pressure 122 mm[Hg] [facility] 10-16-2022 09:00-0400 Body height 158.75 cm Ximena Astudillo Other [facility] Other 10-16-2022 09:00-0400 Body mass index (BMI) [Ratio] 27.72 kg/m2 Ximena Astudillo Other [facility] Other 10-16-2022 09:00-0400 Body weight 69.85 kg Ximena Astudillo Other [facility] Other 10-16-2022 09:00-0400 Diastolic blood pressure 70 mm[Hg] Ximena Astudillo Other [facility] Other 10-16-2022 09:00-0400 Systolic blood pressure 132 mm[Hg] Ximena Astudillo Other [facility] [email or web address] Other 11-30-2021 08:09-0400 Diastolic blood pressure 92 mm[Hg] Lemus SALAM [facility] 11-30-2021 08:09-0400 Heart rate 86 /min Lemus SALAM [facility] 11-30-2021 08:09-0400 Systolic blood pressure 170 mm[Hg] Lemus SALAM [facility] Encounters Encounter Date Encounter Type Care Provider Facility Start: 06-05-2024 End: 06-05-2024 ambulatory [facility] Work Phone: Start: 06-05-2024 End: 06-05-2024 Patient encounter procedure [facility] Physician [facility] Work Phone: Start: 04-21-2024 End: 04-21-2024 Patient encounter procedure [facility] Work Phone: Start: 04-14-2024 Non-patient / Non-visit [facility] Work Phone: Start: 04-07-2024 End: 04-07-2024 Patient encounter procedure [facility] Work Phone: Start: 03-12-2024 Non-patient / Non-visit [facility] Work Phone: Start: 01-29-2024 End: 01-29-2024 ambulatory [facility] Work Phone: Start: 01-29-2024 End: 01-29-2024 Patient encounter procedure [facility] Work Phone: Start: 11-28-2023 End: 11-28-2023 ambulatory [facility] Not Available Start: 11-09-2023 Patient encounter procedure Andrea Alonso APRN.CV/CVN CV TSC SYSTEM OPERATOR Work Phone: [facility] Start: 11-09-2023 Progress Note Andrea MCLEAN RN.CV/CVN CV TSC SYSTEM OPERATOR Work Phone: [facility] Start: 11-07-2023 End: 11-07-2023 ambulatory [facility] Not Available Start: 11-05-2023 Patient encounter procedure Andrea Alonso APRN.CV/CVN CV TSC SYSTEM OPERATOR Work Phone: [facility] Start: 11-05-2023 Progress Note Andrea MCLEAN RN.CV/CVN CV TSC SYSTEM OPERATOR Work Phone: [facility] Start: 10-29-2023 Patient encounter procedure Andrea Alonso APRN.CV/CVN CV TSC SYSTEM OPERATOR Work Phone: [facility] Start: 10-29-2023 Progress Note Andrea MCLEAN RN.CV/CVN CV TSC SYSTEM OPERATOR Work Phone: [facility] Start: 10-25-2023 Patient encounter procedure Andrea Alonso DEPUTY GENERAL COUNSEL.CV/CVN CV TSC SYSTEM OPERATOR Work Phone: [facility] Start: 10-25-2023 Progress Note Andrea MCLEAN RN.CV/CVN CV TSC SYSTEM OPERATOR Work Phone: [facility] Start: 10-23-2023 Patient encounter procedure Andrea Alonso APRN.CV/CVN CV TSC SYSTEM OPERATOR Work Phone: [facility] Start: 10-23-2023 Progress Note Andrea CMLEAN RN.CV/CVN CV TSC SYSTEM OPERATOR Work Phone: [facility] Start: 10-23-2023 End: 10-23-2023 ambulatory CHANA LEMONS Not Available Start: 10-18-2023 Patient encounter procedure Andrea Alonso DEPUTY GENERAL COUNSEL.CV/CVN CV TSC SYSTEM OPERATOR Work Phone: [facility] Start: 10-18-2023 Progress Note Andrea MCLEAN RN.CV/CVN CV TSC SYSTEM OPERATOR Work Phone: [facility] Start: 10-15-2023 Patient encounter procedure Itri Kisha Amilcar Work Phone: [facility] Start: 10-15-2023 Progress Note Itri A Amilcar Work Phone: [facility] Start: 10-08-2023 Evaluation and management of inpatient Regi Trang. Art Facility:[facility] Start: 10-08-2023 End: 10-12-2023 Evaluation and management of inpatient Regi Cordova Facility:[facility] Start: 10-08-2023 Emergency department patient visit Rigo Anderson Facility:[facility] Start: 10-08-2023 End: 10-12-2023 Evaluation and management of inpatient Regi Trang. [facility] Start: 09-10-2023 End: 09-10-2023 ambulatory [facility] Work Phone: Start: 09-10-2023 End: 09-10-2023 Patient encounter procedure Formerly [facility], [facility]1983 Physician [facility] Work Phone: Start: 08-08-2023 Non-patient / Non-visit Formerly [facility], [facility] Physician [facility] Work Phone: Start: 01-22-2023 End: 01-22-2023 ambulatory Ximena Astudillo Other [employer] Other Start: 01-22-2023 Telephone encounter Ximena Astudillo [facility] Start: 10-18-2022 End: 10-18-2022 ambulatory Ximena Astudillo Other [employer] Other Start: 10-18-2022 Telephone encounter Ximena Baudilio [facility] Start: 10-17-2022 End: 10-17-2022 ambulatory Ximena Astudillo Other [employer] Other Start: 10-17-2022 Telephone encounter Ximena Astudillo [facility] Start: 10-16-2022 End: 10-16-2022 ambulatory Ximena Astudillo Other [employer] Other Start: 10-16-2022 Office outpatient visit 25 minutes Ximena Astudillo [facility] Start: 08-19-2022 End: 08-19-[address] XIMENA ASTUDILLO Facility:[facility] Start: 05-10-2022 End: 05-10-[address] XIMENA ASTUDILLO Facility:[facility] Start: 01-19-2022 End: 01-19-[address] XIMENA ASTUDILLO Facility:[facility] Start: 11-30-2021 End: 11-30-2021 Patient encounter procedure Mariah HERNANDEZ [facility] Start: 11-04-2021 End: 11-04-2021 Patient encounter procedure Mariah JIMENEZAM [facility] Start: 10-18-2021 End: 10-19-[address] XIMENA ASTUDILLO Facility:[facility] Start: 09-27-2021 End: 09-28-[address] XIMENA ASTUDILLO Facility:[facility] Start: 09-23-2021 End: 09-23-[address] XIMENA ASTUDILLO Facility: Start: 09-21-2021 Patient encounter procedure Andrea Alonso APRN.CV/CVN CV TSC SYSTEM OPERATOR Work Phone: [facility] Start: 09-21-2021 Progress Note Andrea MCLEAN RN.CV/CVN CV TSC SYSTEM OPERATOR Work Phone: [facility] Start: 09-16-2021 Patient encounter procedure Andrea Alonso APRN.CV/CVN CV TSC SYSTEM OPERATOR Work Phone: [facility] Start: 09-16-2021 Progress Note Andrea MCLEAN RN.CV/CVN CV TSC SYSTEM OPERATOR Work Phone: [facility] Start: 09-14-2021 Patient encounter procedure Andrea Alonso APRN.CV/CVN CV TSC SYSTEM OPERATOR Work Phone: [facility] Start: 09-14-2021 Progress Note Andrea MCLEAN RN.CV/CVN CV TSC SYSTEM OPERATOR Work Phone: [facility] Start: 09-12-2021 Patient encounter procedure Itri Kisha Amilcar Work Phone: [facility] Start: 09-12-2021 Progress Note Itri A Amilcar Work Phone: [facility] Start: 09-05-2021 End: 09-11-2021 Evaluation and management of inpatient DR LENY MCCULLOUGH . Facility: Start: 07-25-2018 End: 07-25-2018 Patient encounter procedure Ximena Astudillo Facility:[facility] Start: 02-12-2017 End: 02-14-2017 Evaluation and management of inpatient WANDA WHEELER Facility:[facility] Procedures Date Procedure Procedure Detail Performing Clinician [...] 01-13-2024 Influenza vaccination Influenza Vaccine (Season Ended) [facility] Start: 2023 Advance Directive Discussion Advance Directive Discussion [facility] Start: 2023 Pneumococcal Vaccine: 65+ (1 of 1 - PCV) Pneumococcal Vaccine: 65+ (1 of 1 - PCV) [facility] Start: 2023 Screening for osteoporosis Bone Density Screening [facility] Start: 05-14-2023 Behavioral Health Screening Behavioral Health Screening [facility] Start: 01-12-2023 Covid-19 Vaccine ( season) Covid-19 Vaccine ( season) [facility] Start: 01-12-2022 Influenza [facility] Start: 08-09-2021 DIABETES SCREEN DIABETES SCREEN [facility] Start: 08-09-2021 Diabetes Screening Diabetes Screening [facility] Start: 2018 RSV Vaccine (1 - 1-dose 60+ series) RSV Vaccine (1 - 1-dose 60+ series) [facility] Start: 2008 SHINGRIX VACCINE (1 of 2) SHINGRIX VACCINE (1 of 2) [facility] Start: 2003 COLOGUARD (FIT-DNA) COLOGUARD (FIT-DNA) [facility] Start: 2003 Colonoscopy COLONOSCOPY [facility] Start: 2003 COLORECTAL CANCER SCREENING COLORECTAL CANCER SCREENING [facility] Start: [address] COLONOGRAPHY [facility] Start: 2003 FECAL OCCULT BLOOD FECAL OCCULT BLOOD [facility] Start: 2003 Lipid panel Lipid Screening [facility] Start: 2003 LIPID SCREEN LIPID SCREEN [facility] Start: 2003 Screening for malignant neoplasm of colon [facility] Start: 2003 SIGMOIDOSCOPY SIGMOIDOSCOPY [facility] Start: 1998 Mammography MAMMOGRAM [facility] Start: 1998 Screening for malignant neoplasm of breast Mammogram Screening [facility] Start: 1988 HPV TESTING HPV TESTING [facility] Start: 1979 PAP TESTING PAP TESTING [facility] Start: 1977 Urine microalbumin profile [facility] Start: 1976 HEPATITIS C SCREENING HEPATITIS C SCREENING [facility] Start: 1976 Hepatitis C screening Hepatitis C Screening [facility] Start: 1976 HIV SCREENING HIV SCREENING [facility] Start: 1976 HIV screening HIV Screening [facility] Start: 1970 Adult depression screening assessment DEPRESSION SCREENING [facility] Start: 1963 COVID-19 VACCINE (#1) COVID-19 VACCINE (#1) [facility] Start: 1963 COVID-19 VACCINE (1) COVID-19 VACCINE (1) [facility] Comprehensive metabo lic 2000 panel - Serum or Plasma [facility] Microalbumin [Mass/volume] in Urine [facility] XR Chest 2 Views [facility] Immunizations Immunization Date Immunization Notes Care Provider Fa cility 01-29-2024 Pneumococcal Conjuga te Vaccine, 20 valent [facility] Payers Date Payer Category Payer Medicaid [facility] MEDICAID MYC ARE [facility] MEDICAID [id number] 2023-Present [phone] [address] [place] [address] Medicaid [id number] 2023 Medicare [facility] MEDICARE [facility] DUAL COMPLETE HMO POS SNP [id number] 2023-Present [phone] [address] [place] [address] Medicare [id number] 2023 Private Health Insurance [id number] 2018 Self-pay 2018 Medicaid [facility] MEDICAID [facility] COMMUNITY PLAN MEDICAID [id number] 2018-Present [phone] [address] [place] [id number] Medicaid [id number] 1959 Medicaid [id number] 1959 Unknown [id number] 1958 Unknown [id number] 2.16.840.1.228497.3.579.2. 593 1958 Unknown [id number] 2.16.840.1.248454.3.579.2. 593 1958 Unknown [id number] 2.16.840.1.403149.3.579.2. 593 1958 Unknown [id number] 2.16.840.1.303398.3.579.2. 593 1958 Unknown [id number] 2.840.1.927431.3.579.2. 593 1958 Unknown [id number] 2.16.840.1.323617.3.579.2. 593 1958 Unknown [id number] 2.16.840.1.367541.3.579.2. 593 1958 Unknown [id number] 2.16.840.1.259776.3.579.2. 727 1958 Unknown [id number] 2.840.1.242971.3.579.2. 727 1958 Unknown [id number] 2.16.840.1.700659.3.579.2. 727 1958 Unknown [id number] 2.16.840.1.057066.3.579.2. 727 1958 Unknown [id number] 2.16.840.1.415604.3.579.2. 727 1958 Unknown [id number] 2.16.840.1.428633.3.579.2. 727 1958 Unknown [id number] 2.16.840.1.076528.3.579.2. 727 1958 Unknown [id number] 2.16.840.1.130673.3.579.2. 72 1958 Unknown [id number] 2.16.840.1.781226.3.579.2. 1958 Unknown [id number] 2.16.840.1.082646.3.579.2. 72 1958 Unknown [id number] 2.16.840.1.819193.3.579.2. 125 1958 Unknown [id number] 2.16.840.1.352793.3.579.2. 1258 1958 Unknown [id number] 2.16.840.1.334338.3.579.2. 1258 1958 Unknown [id number] 2.16.840.1.593535.3.579.2. 1258 1958 Unknown [id number] 2.16.840.1.143176.3.579.2. 1258 1958 Unknown [id number] 2.16.840.1.761828.3.579.2. 1258 1958 Unknown [id number] 2.16.840.1.682972.3.579.2. 1258 1958 Unknown [id number] 2.16.840.1.765495.3.579.2. 125 1958 Unknown [id number] 2.16.840.1.893347.3.579.2. 125 Unknown [id number] 2.16.840.1.326614.3.579.2. 531 Social History Date Type Detail Facility Start: 08-09-2018 [facility] Start: 08-09-2018 Tobacco use and exposure Smokeless tobacco non-user [facility] Start: 1960 Sex Assigned At Not on file C [facility] Start: 11-03-2021 End: 11-30-2021 Tobacco smoking status Light tobacco smoker (finding) [facility] Start: 09-09-2018 End: 04-20-2020 Sex Assigned At Female [facility] Start: 10-16-2022 End: 06-03-2024 Tobacco smoking status NHIS Smoker (finding) [facility] Start: 1960 Sex Assigned At Female F [facility] Start: 09-09-2018 End: 04-20-2020 History of Social function [facility] National Score (1-100), lower number is lower risk Not on file [facility] Start: 06-05-2024 Sex Female (finding) [facility] Medical Equipment Procedure Code Equipment Code Equipment [...] Assessment Result Facility 10-08-2023 Functional Status No [facility] 10-08-2023 Functional Status [facility] 11-30-2021 Functional Status N/A [facility] Clinical Notes 03-04-2018 to 04-07-2024 [...] pulmonary disease) acute June 05, 2024 10:05am [facility] Work Phone: 1(588) 497-581006-28-2024 History of Present illness Narrative* Andrea Alonso APRN.CNS - 11/09/2023 12:00 AM EDT [facility] NOTE NAME: CATHERINE ADAMSON [facility] NO.: [id number] DATE OF SERVICE: 11/09/2023 ATTENDING PHYSICIAN: VERENA Wallis [facility] Discharge Visit. DATE OF ADMISSION: October 12, 2023. DATE OF DISCHARGE: October. REASON FOR VISIT: The patient is a resident of [facility]. This is a discharge visit for fracture radius and ulna and fracture of the right femur, subsequent encounter with other medical concerns. The patient was admitted to [facility] from [facility] after fall, resulting in fracture of the right radius and ulna, and fracture of the right femur. The patient's stay at [facility] did have its events. The patient did [...] 31 minutes. DICTATED BY: VERENA Wallis/AQT JOB# [id number] [facility] documented [facility]-2024 NoteHNO ID: [id number] Author: ANDREA ALONSO APRN.VERENA Service: ? Author Type: Nurse Specialist Type: Progress Notes Filed: 11/12/2023 07:28 Note Text: [facility] NOTE NAME: CATHERINE ADAMSON [facility] NO.: [id number] DATE OF SERVICE: 11/09/2023 ATTENDING PHYSICIAN: VERENA Wallis [facility] Discharge Visit. DATE OF ADMISSION: October 12, 2023. DATE OF DISCHARGE: October. REASON FOR VISIT: The patient is a resident of [facility]. This is a discharge visit for fracture radius and ulna and fracture of the right femur, subsequent encounter with other medical concerns. The patient was admitted to [facility] from [facility] after fall, resulting in fracture of the right radius and ulna, and fracture of the right femur. The patient's stay at [facility] did have its events. The patient did [...] 31 minutes. DICTATED BY: VERENA Wallis/LUIS JOB# [id number] [facility] Elect (more content not included)...[facility]06-24-2024 History of Present illness Narrative* Andrea Alonso APRN.VERENA - 11/05/2023 12:00 AM EDT [facility] NOTE NAME: NANCY ADAMSONE [facility] NO.: [id number] DATE OF SERVICE: 11/05/2023 ATTENDING PHYSICIAN: VERENA Wallis [facility] Chart Note REASON FOR VISIT: The patient is a resident of [facility]. This is a skilled visit for [...] chloride daily. DICTATED BY: VERENA Wallis/AQT JOB# [id number] [facility] documented in this encounterG[facility]06-[facility]-2024 NoteHNO ID: [id number] Author: ANDREA ALONSO APRN.VERENA Service: ? Author Type: Nurse Specialist Type: Progress Notes Filed: 11/07/2023 07:02 Note Text: [facility] NOTE NAME: CATHERINE ADAMSON [facility] NO.: [id number] DATE OF SERVICE: 11/05/2023 ATTENDING PHYSICIAN: VERENA Wallis [facility] Chart Note REASON FOR VISIT: The patient is a resident of [facility]. This is a skilled visit for [...] chloride daily. DICTATED BY: VERENA Wallis/SURINDERT JOB# [id number] [facility]06-17-2024 History of Present illness Narrative* Andrea Alonso, ROSETTA.VERENA - 10/29/2023 12:00 AM EDT [facility] NOTE NAME: CATHERINE ADAMSON [facility] NO.: [id number] DATE OF SERVICE: 10/29/2023 ATTENDING PHYSICIAN: VERENA Wallis [facility] Chart Note REASON FOR VISIT: The patient is a resident of [facility]. This is a skilled visit for fracture of the right radius and ulna and fracture of the right femur, subsequent encounter with routine healing. Upon entering the room, found the patient calm, alert, lying in semi-Saenz's position. The patient does not appear to be in distress or discomfort at this time. It has been recognized by [employer] that insurances will be cutting the patient, [...] sodium chloride. DICTATED BY: VERENA Wallis/SURINDERT JOB# [id number] [facility] documented in this encounterGlen[facility]igh Hospital06-17-2024 NoteHNO ID: [id number] Author: ANDREA ALONSO APRN.CV/CVN CV TSC SYSTEM OPERATOR Service: ? Author Type: Nurse Specialist Type: Progress Notes Filed: 11/02/2023 07:03 Note Text: [facility] NOTE NAME: CATHERINE ADAMSON [facility] NO.: [id number] DATE OF SERVICE: 10/29/2023 ATTENDING PHYSICIAN: VERENA Wallis [facility] Chart Note REASON FOR VISIT: The patient is a resident of [facility]. This is a skilled visit for fracture of the right radius and ulna and fracture of the right femur, subsequent encounter with routine healing. Upon entering the room, found the patient calm, alert, lying in semi-Saenz's position. The patient does not appear to be in distress or discomfort at this time. It has been recognized by [employer] that insurances will be cutting the patient, [...] sodium chloride. DICTATED BY: VERENA Wallis/AQT JOB# [id number] [facility]06-13-2024 History of Present illness Narrative* Andrea Alonso APRN.VERENA - 10/25/2023 12:00 AM EDT [facility] NOTE NAME: CATHERINE ADAMSON [facility] NO.: [id number] DATE OF SERVICE: 10/25/2023 ATTENDING PHYSICIAN: VERENA Wallis [facility] Chart Note REASON FOR VISIT: The patient is a resident of [facility]. This is a skilled visit for [...] this walker. DICTATED BY: VERENA Wallis/LUIS JOB# [id number] [facility] documented in this encounterGlenbeigh Hospital06-13-2024 NoteHNO ID: [id number] Author: ANDREA ALONSO APRN.CV/CVN CV TSC SYSTEM OPERATOR Service: ? Author Type: Nurse Specialist Type: Progress Notes Filed: 10/29/2023 07:07 Note Text: [facility] NOTE NAME: CATHERINE ADAMSON [facility] NO.: [id number] DATE OF SERVICE: 10/25/2023 ATTENDING PHYSICIAN: VERENA Wallis [facility] Chart Note REASON FOR VISIT: The patient is a resident of [facility]. This is a skilled visit for [...] use of this walker. DICTATED BY: VERENA Wallis/AQT JOB# [id number] [facility]06-11-2024 History of Present illness Narrative* Andrea Alonso APRN.VERENA - 10/23/2023 12:00 AM EDT [facility] NOTE NAME: CATHERINE ADAMSON [facility] NO.: [id number] DATE OF SERVICE: 10/23/2023 ATTENDING PHYSICIAN: VERENA Wallis [facility] Chart Note REASON FOR VISIT: The patient is a resident of [facility]. This is a skilled visit for [...] chloride tab. DICTATED BY: VERENA Wallis/LUIS JOB# [id number] [facility] documented in this encounterGlenbeigh Hospital06-11-2024 NoteHNO ID: [id number] Author: ANDREA ALONSO APRN.VERENA Service: ? Author Type: Nurse Specialist Type: Progress Notes Filed: 10/26/2023 07:07 Note Text: [facility] NOTE NAME: CATHERINE ADAMSON [facility] NO.: [id number] DATE OF SERVICE: 10/23/2023 ATTENDING PHYSICIAN: Andrea Alonso, VERENA [facility] Chart Note REASON FOR VISIT: The patient is a resident of [facility]. This is a skilled visit for [...] chloride tab. DICTATED BY: VERENA Wallis/AQT JOB# [id number] [facility]06-06-2024 History of Present illness Narrative* Andrea Alonso APRN.VERENA - 10/18/2023 12:00 AM EDT [facility] NOTE NAME: CATHERINE ADAMSON [facility] NO.: [id number] DATE OF SERVICE: 10/18/2023 ATTENDING PHYSICIAN: VERENA Wallis [facility] Chart Note REASON FOR VISIT: The patient is a resident of [facility]. This is a skilled visit for [...] normal range. DICTATED BY: VERENA Wallis/LUIS JOB# [id number] [facility] documented in this encounterGlenbeigh Hospital06-06-2024 NoteHNO ID: [id number] Author: ANDREA ALONSO APRN.VERENA Service: ? Author Type: Nurse Specialist Type: Progress Notes Filed: 10/22/2023 07:58 Note Text: [facility] NOTE NAME: CATHERINE ADAMSON [facility] NO.: [id number] DATE OF SERVICE: 10/18/2023 ATTENDING PHYSICIAN: VERENA Wallis [facility] Chart Note REASON FOR VISIT: The patient is a resident of [facility]. This is a skilled visit for [...] normal range. DICTATED BY: VERENA Wallis/SURINDERT JOB# [id number] [facility]06-03-2024 NoteMicrobiology PROCEDURE: Blood Culture Charcoal [R1] SOURCE: Blood BODY SITE: Hand L COLLECTED DATE/TIME: 10/08/2023 15:28 EDT RECEIVED DATE/TIME: 10/08/2023 15:39 EDT START DATE/TIME: 10/08/2023 15:39 EDT FREE TEXT SOURCE: Rigo Anderson DO, DO, John FINAL REPORTS Final Report [] Verified Date/Time: 10/15/2023 18:00 EDT No growth at 7 days. Performing Locations R1: This test was performed at: [facility], [address] [place] [address], [address] [place] [address], [address] [place], [place] [address]Comment on above:Performed By: #### [id number] #### [facility] [address] [place] [address] [phone] NoteMicrobiology PROCEDURE: Blood Culture Charcoal [R1] SOURCE: Blood BODY SITE: Arm R COLLECTED DATE/TIME: 10/08/2023 15:35 EDT RECEIVED DATE/TIME: 10/08/2023 15:39 EDT START DATE/TIME: 10/08/2023 15:39 EDT FREE TEXT SOURCE: Rigo Anderson DO, DO, John FINAL REPORTS Final Report [] Verified Date/Time: 10/15/2023 18:00 EDT No growth at 7 days. Performing Locations R1: This test was performed at: [facility], [address] [place] [address], [address] [place] [address], [address] [place], [place] [address]Comment on above:Performed By: #### [id number] #### [facility] [address] [place] [address] [phone] History of Present illness Narrative* Lydia Calderón - 10/15/2023 12:00 AM EDT [facility] NOTE NAME: CATHERINE ADAMSON [facility] NO.: [id number] DATE OF SERVICE: 10/15/2023 ATTENDING PHYSICIAN: Lydia Calderón MD [facility] NEW PATIENT HISTORY AND PHYSICAL: HISTORY OF PRESENT ILLNESS: The patient is a 63-year-old female, was admitted to us from [facility] with the diagnosis of status post surgical [...] therapy. DICTATED BY: MD PEYTON Burch/LUIS JOB# [id number] [facility] documented in this encounterGlenbeigh Hospital06-03-2024 NoteHNO ID: [id number] Author: LYDIA CALDERÓN, ? Service: ? Author Type: Physician Type: Progress Notes Filed: 10/17/2023 11:13 Note Text: [facility] LONG TERM NOTE NAME: CATHERINE ADAMSON [facility] NO.: [id number] DATE OF SERVICE: 10/15/2023 ATTENDING PHYSICIAN: Lydia Calderón MD [facility] NEW PATIENT HISTORY AND PHYSICAL: HISTORY OF PRESENT ILLNESS: The patient is a 63-year-old female, was admitted to us from [facility] with the diagnosis of status post surgical [...] the hospital. Monitor fl (more content not included)...[facility]06-02-2024 [place] [address] CATHERINE ADAMSON Date of : 1960 63 [...] IV, Stop: 11/08/23 18:15:00 (more content not included)...[facility]Result Comment: Electronically Signed By: Mckenzie Lerma PA-C\.br\Date and Time Signed: 10/12/23 11:39 EDT\.br\Electronically Co-Signed By: Regi Cordova MD\.br\Date and Time Co-Signed: 10/14/23 12:17 [id number] Hospital Discharge instructions Patient Education 10/12/2023 11:32:57 [...] provider. Document Revised: 07/19/2020 Document Reviewed: 07/19/2020 [employer] Patient Education 2022 [employer] 10/12/2023 11:32:55 How to Use an [...] as possible. If the spirometer includes a middle school baseball coach indicator, use this to guide you [...] provider. Document Revised: 07/19/2020 Document Reviewed: 07/19/2020 [employer] Patient Education 2022 [employer] 10/12/2023 09:52:37 Hip Fracture Hip Fracture [...] your health care provider. General instructions Take xias-ilz-rtccmku and prescription medicines only as told by [...] provider. Document Revised: 12/31/2020 Document Reviewed: 12/31/2020 [employer] Patient Education 2021 [employer]. 10/12/2023 09:52:23 Colles Fracture Colles Fracture A [...] by your health care provider. Medicines Take fbpt-ubo-bphajtc and prescription medicines only as told by your health care provider. Ask your health care provider if the medicine prescribed to you: ?Requires you to avoid driving or using machinery. ?Can cause constipation. You may need to take these actions to prevent or treat constipation: ?Drink enough fluid to keep your urine pale yellow. ?Take lxwd-bpf-yhijfbt or prescription medicines. ?Eat foods that are [...] provider. Document Revised: 08/09/2020 Document Reviewed: 08/09/2020 [employer] Patient Education 2022 [employer]. Follow Up Care 10/08/2023 11:57:47 With:Chana Lemons Address: [address] [place], [place] [id number] Business (1) When: Unknown Comments:Call for followup appointment 2-3 weeks for staple removal right hip and recheck right wrist and hip. With:XIMENA ASTUDILLO Address: [address] [place] [phone] Business (1) When: Unknown [facility]05-31-2024 NoteBedside report called to Inna Dickinson [email or web address]. Discharge summary, SBAR, med rec, and scripts faxed over to facility. Mini chart and rest of original paperwork to be sent with [facility] commercial insulator when patient is picked up around 1pm. Marci DICKINSON updated on POC.[place] [facility] + Plan noteExtracted from: Title:Right hip [...] 2022 Author:Gary Álvarez Jr, DO Date:10/09/23 Plan [place] [employer] (ASA) physical status classification: [...] mL/kg bolus based on ideal body weight. [facility]05-30-2024 Cammy Cyr PA-C, dictating for Chana [...] wrist and hip. Adolfo Gauthier Dictated: 10/10/2023 [id number] Transcribed: 10/10/2023[facility]:Result Comment: Electronically Signed By: Chana Lemons DO\.br\Date and Time Signed: 10/11/23 07:07 [id number] NotePT Evaluation completed with an AMPA score of 02/04. Pt requires Mod/MaxA x 2 to sit EOB and neededMod A x 2 to stand. Pt was able to rest on platform walker, but unable to ambulate at this time due to pain. Will follow daily, but SNF recommended as pt unsafe to return home [facility]05-28-2024 NoteHOSPITAL REGULATIONS: All Positive and Important Negative Findings Shall Be Recorded Date of Consultation: 10/09/2023 Attending Physician:Regi Cordova M.D. Consulting Physician: Chana Lemons D.O. ORTHOPEDIC CONSULTATION REFERRING PHYSICIAN: Rigo Anderson D.O. REASON FOR CONSULTATION: Right wrist and [...] on postoperative day one pending laboratory studies. Family Coach for rehabi litation placement, physical therapy for postoperative protocol. Consent form is signed and witnessed. We discussed the pros, cons, risks, benefits of both procedures. These will be done concomitantly together in the same Operating Room setting. This has the potential for infec (more content not included)...[facility]Comment [facility]:Result Comment: Electronically Signed By: Chana Lemons DO\Date and Time Signed: 10/09/23 16:40 [id number] Note TRAUMA CONSULT / H&P Patient Name: CATHERINE ADAMSON Admission Date: 10/08/2023 11:57:18 Chief Complaint: Fall from standing Patient seen and examined on 10/08/2023 14:25:30 BASIC INJURY INFORMATION: Level of activation: Trauma Consult Mode of transport: [facility] Mechanism of injury: Fall Complicating [...] palpitations, no? edema. Ga (more content not included)...[facility] Result Comment: Electronically Signed By: Jamison HAGAN, Aubrey De La Garza\.br\Date and Time Signed: 10/08/23 15:36 EDT\.br\Electronically Co-Signed By: Art GARCIA, Regi Alvarez\.br\Date and Time Co-Signed: 10/09/23 10:21 [id number] Evaluation note* Encounter Date Diagnosis Assessment Notes Treatment Notes Treatment Clinical Notes Oct, COPD, moderate (ICD-10 - J44.9) [facility] Other 06-05-2023 Evaluation note* Encounter Date Diagnosis [...] (ICD-10 - E78.5) chronic - recheck labs. [place] [employer] Other 05-11-2022 History of Present illness Narrative* Andrea Alonso APRN.CV/CVN CV TSC SYSTEM OPERATOR - 09/21/2021 12:00 AM EDT [facility] NOTE NAME: NANCY ADAMSONLIZ NO.: [id number] DATE OF SERVICE: 09/21/2021 [facility] DATE OF : 1960 REASON FOR VISIT: The patient is a resident of [facility]. This is a discharge visit for multiple right-sided rib fractures with traumatic pneumothorax, subsequent encounter. The patient was sent from [facility] to [facility] for therapy services after patient had a fall due to dizziness, lightheadedness. The patient's stay at [facility] was without its event. The patient states she has no complaints of going home. States does have support of family and friends at home and has no concerns of going home. DATE OF ADMISSION: September 11, 2021. DATE OF DISCHARGE: September 21, 2021. HISTORY OF PRESENT ILLNESS FROM ADMISSION: The patient is a 61-year-old female who is admitted to us from [facility] with a diagnosis of recurrent syncopal falls, [...] or syncopal episodes since being admitted to [facility]. The patient states does have a cough [...] 31 minutes. DICTATED BY: ELSY Wallis/Levi JOB# [id number] cc:[facility] documented in [facility] encounterG[facility] History of Present illness Narrative* Andrea Alonso APRN.CNS - 09/16/2021 12:00 AM EDT [facility] NOTE NAME: KRYSTLE ADAMSONELVER NO.: [id number] DATE OF SERVICE: 09/16/2021 [facility] DATE OF : 1960 REASON FOR VISIT: The patient is a resident of [facility]. This is a skilled visit for [...] this visit. DICTATED BY: ELSY Wallis JOB# [id number] cc:[facility] documented in this encounterGlenbeigh Hospital05-04-2022 History of Present illness Narrative* Andrea Alonso APRN.CNS - 09/14/2021 12:00 AM EDT [facility] NOTE NAME: KANE ADAMSON.: [id number] DATE OF SERVICE: 09/14/2021 [facility] DATE OF : 1960 REASON FOR VISIT: The patient is a resident of [facility]. This is a skilled visit for [...] had no syncopal episodes since being [facility]. The patient states nonausea, and has been [...] has had no syncopalepisodes since being at [facility]. The patient is currently under fall precautions. [...] and atorvastatin. DICTATED BY: ELSY Wallis/Levi JOB# [id number] cc:[facility] documented in this encounterGlenbeigh Hospital05-02-2022 History of Present illness Narrative* Dorenei Kisha Amilcar - 09/12/2021 12:00 AM EDT [facility] NOTE NAME: CAIN ADAMSONYOLANDA NO.: [id number] DATE OF SERVICE: 09/12/2021 [facility] DATE OF : 1960 NEW PATIENT HISTORY AND PHYSICAL HISTORY OF PRESENT ILLNESS: The patient is a 61-year-old female who was admitted to us from [facility] with the diagnoses of recurrent syncopal falls, [...] therapy. DICTATED BY: MD PEYTON Ag/Levi JOB# [id number] cc:[facility] documented in this encounterGlenbeigh Hospital04-25-2022 NotePROCEDURE: XR KNEE RT 4V or > COMPARISON: None. HISTORY: MUSCLE WEAKNESS (GENERALIZED) FINDINGS: BONES:No acute fracture or dislocation. Moderate to severe tricompartmental osteoarthropathy with extensive marginal osteophyte formation. Severe narrowing of the medial joint space. SOFT TISSUES:Negative. No visible soft tissue swelling. EFFUSION:Moderate joint effusion OTHER: Negative. IMPRESSION: Severe osteoarthritis with joint effusion Electronically authenticated by: PAWAN GEORGE Date: 2021-09-05 13:50[id number] Evaluation note* Diagnosis Onset Date Resolution Status Essential (primary) hypertension March 04, 2018 acute [facility] Work Phone: Evaluation + Plan note Future Appointments Appointment Date:11/30/2021 08:15:00 AM Scheduled Provider:Mariah HERNANDEZ MD Location:[facility] Appointment Type:[facility] Up [facility] Future Appointments Appointment Date:01/04/2022 12:50:00 PM Scheduled Provider: Location:[facility] Appointment Type:Surgery FT Future Scheduled Tests Laboratory* Hepatic Function Panel 11/30/21 [facility] Evaluation noteNo [employer] Other Evaluation noteNo assessment information available [facility] Work Phone: [employer] general Narrative - Reported* Type Description Date Medical History COPD Medical History CAD/MN Medical History HYPONATREMIA Medical History HTN Medical History OA Medical History HEART ATTACK Surgical History RIGHT KNEE ATHROSCOPIC SURGERY Surgical History CARDIAC STENT 02/2017 Hospitalization History SEE ABOVE Hospitalization History ABNORMAL ELECTOLYTES 12/13 018 [facility] Other Hospital course Narrative No data available for this section [facility] No data available for this section [facility] note No data available for this section [facility] Summary Purpose Family History Relationship Condition [...] section and content) DATE CREATED AUTHOR 11/06/2017 [facility] DATE CREATED AUTHOR AUTHOR'S ORGANIZ ATION 07/27/2018 [facility] DATE CREATED AUTHOR AUTHOR'S ORGANIZ ATION 08/22/2022 [facility] DATE CREATED AUTHOR AUTHOR'S ORGANIZ ATION 10/08/2023 Pineda [facility] DATE CREATED AUTHOR AUTHOR'S ORGANIZ ATION 10/09/2023 Pineda [facility] DATE CREATED AUTHOR AUTHOR'S ORGANIZ ATION 10/10/2023 [facility] [place] [facility] DATE CREATED AUTHOR AUTHOR'S ORGANIZ ATION 10/11/2023 Pineda [facility] DATE CREATED AUTHOR AUTHOR'S ORGANIZ ATION 10/12/2023 [facility] [place] [facility] DATE CREATED AUTHOR AUTHOR'S ORGANIZ ATION 10/14/2023 Pineda [facility] DATE CREATED AUTHOR AUTHOR'S ORGANIZ ATION 10/16/2023 [facility] [place] [facility] DATE CREATED AUTHOR AUTHOR'S ORGANIZ ATION 10/31/2023 Pineda Mike [facility] DATE CREATED AUTHOR AUTHOR'S ORGANIZ ATION 11/12/2023 [facility] DATE CREATED AUTHOR AUTHOR'S ORGANIZ ATION 12/01/2023 [facility] EPIC Source Comments (unrecognize d section and content) In the event this informatio n is protected by the Federal Confidentiality of Alcohol and Drug Abuse Patient Records regulations: The Federal rules restrict any use of the information to criminally investigate or prosecute any alcohol or drug abuse patient.[facility] HospitalIn the event this information is protected by the Federal Confidentiality of Alcohol and Drug Abuse Patient Records regulations: The Federal rules restrict any use of the information to criminally investigate or prosecute any alcohol or drug abuse patient.[facility] HospitalIn the event this information is protected by the Federal Confidentiality of Alcohol and Drug Abuse Patient Records regulations: The Federal rules restrict any use of the information to criminally investigate or prosecute any alcohol or drug abuse patient.[facility] HospitalIn the event this information is protected by the Federal Confidentiality of Alcohol and Drug Abuse Patient Records regulations: The Federal rules restrict any use of the information to criminally investigate or prosecute any alcohol or drug abuse patient.[facility] HospitalIn the event this information is protected by the Federal Confidentiality of Alcohol and Drug Abuse Patient Records regulations: The Federal rules restrict any use of the information to criminally investigate or prosecute any alcohol or drug abuse patient.[facility] HospitalIn the event this information is protected by the Federal Confidentiality of Alcohol and Drug Abuse Patient Records regulations: The Federal rules restrict any use of the information to criminally investigate or prosecute any alcohol or drug abuse patient.[facility] HospitalIn the event this information is protected by the Federal Confidentiality of Alcohol and Drug Abuse Patient Records regulations: The Federal rules restrict any use of the information to criminally investigate or prosecute any alcohol or drug abuse patient.[facility] HospitalIn the event this information is protected by the Federal Confidentiality of Alcohol and Drug Abuse Patient Records regulations: The Federal rules restrict any use of the information to criminally investigate or prosecute any alcohol or drug abuse patient.[facility] HospitalIn the event this information is protected by the Federal Confidentiality of Alcohol and Drug Abuse Patient Records regulations: The Federal rules restrict any use of the information to criminally investigate or prosecute any alcohol or drug abuse patient.[facility] HospitalIn the event this information is protected by the Federal Confidentiality of Alcohol and Drug Abuse Patient Records regulations: The Federal rules restrict any use of the information to criminally investigate or prosecute any alcohol or drug abuse patient.[facility] HospitalIn the event this information is protected by the Federal Confidentiality of Alcohol and Drug Abuse Patient Records regulations: The Federal rules restrict any use of the information to criminally investigate or prosecute any alcohol or drug abuse patient.[facility] Care Teams (unrecognized sec tion and content) [...] January 29, 2024 End: January 29, 2024 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 Relationship Specialty Start Date End Date Judy Baltazar [address] [place] [address] PCP - General Nephrology 07/18/18 Ximena Astudillo MD [address] [place] [id number] [facility] Practice 09/09/18 Team Status: Active Member Role Status Dates Ximena Astudillo MD Primary Care Provider Active Start: August 08, 2023 AUDRA Feliz Attending Provider Active Start : August 08, 2023 Team Status: Inactive Member Role Status Dates Ximena Astudillo MD Primary Care Provide r, Attending Provider Active Start: September 10, 2023 End: September 10, 2023 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 [facility]. provides no warranty or guarantee of the accuracy or completeness of information in this document.
[2024-06-25] MEDS: DEXTROSE 5%-LACTATED RINGERS 1,000 ML 125 ML IV (03:07)
[2024-06-25] MEDS: MULTIVITAMIN TABLET 1 TAB PO ×2 (03:09→10:16)
[2024-06-25] MEDS: FOLIC ACID 1 MG TABLET PO ×2 (03:09→10:22)
--- NOTE | 2024-06-25 05:38 | PC.NURSE ---
0327 Pictures taken of patient's 3 skin tears on right arm. Upper skin tear, tegaderm applied, lower 2 large skin tears,covered with Adaptic dressing, ABD padding and Kerlix wrap.
--- NOTE | 2024-06-25 06:16 | P.HP_ITS ---
HPI H&P: HPI History of Present Illness Chief complaint: ALCOHOL INTOXICATION, ANEMIA, FALL, SKIN TEAR Narrative: Patient presents to the emergency room after a fall, injuring right side of her ribs, also found to have significant alcohol intoxication, severe anemia, hyponatremia and elevated liver function test. Patient admitted for workup and treatment of same When I saw patient up on the medical surgical floor, she was resting fairly comfortably in bed, does have pain with movement, patient denies having alcohol withdrawal symptoms, she states her family states that she drinks up to 12 pack a day at least Opioid HPI Opioid Management Most Recent Pain and Opioid Data: Last Pain Scale 0 06/25/24 18:42 06/25/24 Last Pain Assessment 06/25/24 18:42 Last MAR Pain Assessment 06/25/24 09:20 Last ORT Total Score 3 06/25/24 00:59 06/25/24 Last ORT Risk Category Low Risk 06/25/24 00:59 06/25/24 Review of Systems ROS Status of ROS 10 or more systems reviewed and unremark able except as noted in history and below PFSH PFSH Social History Highest level of school completed/degree received: 10th grade Little interest or pleasure in doing things: not at all Feeling down, depressed, or hopeless: not at all Meds Home Medications and Allergies Home Medications ?Medication ?Instructions ?Recorded ?Confirmed ?Type albuterol sulfate 90 mcg/actuation 2 puff inhalation Q6H PRN 06/24/24 06/24/24 History aerosol inhaler shortness of breath or wheezing aspirin 81 mg tablet,delayed 81 mg PO DAILY 06/24/24 06/24/24 History release budesonide-formoterol HFA 160 2 puff inhalation Q12H 06/24/24 06/24/24 History mcg-4.5 mcg/actuation aerosol inhaler (Symbicort) clopidogrel 75 mg tablet 75 mg PO DAILY 06/24/24 06/24/24 History metoprolol succinate 25 mg 25 mg PO DAILY 06/24/24 06/24/24 History tablet,extended release 24 hr nifedipine 30 mg tablet,extended 30 mg PO DAILY 06/24/24 06/24/24 History release 24 hr potassium chloride 10 mEq 10 meq PO DAILY 06/24/24 06/24/24 History tablet,extended release Allergies Allergy/AdvReac Type Severity Reaction Status Date / Time No Known Drug Allergies Allergy Verified 06/24/24 21:48 Exam Constitutional Vital Signs, click to edit/add: Last Vital Signs Temp 97.4 F L 06/25/24 04:00 Pulse 87 06/25/24 06:13 Resp 16 06/25/24 04:07 BP 152/68 H 06/25/24 04:00 Pulse Ox 96 06/25/24 04:07 O2 Del Method Room Air 06/25/24 04:07 Documenting provider has reviewed patient's vital signs: yes Common normals: no apparent distress Respiratory Common normals: normal respiratory effort Cardio Common normals: regular rate and regular rhythm GI Common normals: Normal to inspection, nondistended, normoactive bowel sounds present, soft to palpation and non-tender Results Labs Labs: Short CBC 06/24/24 Range/Units 22:10 WBC 7.6 (4.0-11.0) 10^3/uL Hgb 7.7 L (12.0-16.0) g/dL Hct 24.0 L (36.0-48.0) % Plt Count 273 (150-450) 10^3/uL BMP 06/24/24 22:10 Sodium 127 L Potassium 4.3 Chloride 94 L Carbon Dioxide 23.8 BUN 3.0 L Creatinine 0.59 Glucose 94 Calcium 7.9 L Cardiac Enzymes 06/24/24 Range/Units 22:10 Total Creatine Kinase 30 (26-192) U/L Liver Function 06/24/24 Range/Units 22:10 Total Bilirubin 0.3 (0.2-1.0) mg/dL Direct Bilirubin 0.1 (0.0-0.2) mg/dL AST 60 H (15-37) U/L ALT 39 (14-59) U/L Alkaline Phosphatase 221 H (46-116) U/L Albumin 2.1 L (3.4-5.0) g/dL Assessment and Plan Assessment and Plan (1) Anemia: (2) Alcohol intoxication: (3) Skin tear: (4) Fall: Plan Admission findings: Alcohol intoxication, respiratory distress, right rib contusion, severe anemia with hemoglobin less than 8 in ER, now less than 7, significant hyponatremia Acute upper gastrointestinal bleeding resulted in acute upper gastrointestinal blood loss anemia-hemoglobin now less than 7, will type cross and transfuse 1 unit start patient on IV Protonix Hyponatremia likely secondary to alcohol intoxication-IV fluids, serial testing Alcohol abuse-patient placed on CIWA scale and as needed medications Elevated liver function test likely related to the alcohol abuse, monitor daily Hypomagnesemia-supplement COPD-as needed inhalers no acute exacerbation Hypertension-continue with current medications Admission status: Patient was acute upper gastrointestinal blood loss anemia with a hemoglobin of less than 7, alcohol abuse by history, patient likely to have alcohol withdrawal symptoms, will start patient off as observation, if medically necessary treatment will span 2 midnights she will be changed to inpatient status.
[2024-06-25 06:44] LABS: Basophils Percent Auto 0.6 % (0.2-2.0); Eosinophils Absolute Auto 0.2 10^3/uL (0.0-0.7); Eosinophils Percent Auto 3.2 % (0.9-7.0); Hematocrit 21.1 % (36.0-48.0); Immature Granulocytes Abs Auto 0.02 10^3/uL (0.00-0.03); Immature Granulocytes Pct Auto 0.3 % (0.0-0.5); Lymphocytes Absolute Auto 0.9 10^3/uL (1.2-3.8); Lymphocytes Percent Auto 12.8 % (20.5-60.0); Mean Corpuscular HGB Conc 32.2 g/dL (29.9-35.2); Mean Corpuscular Hemoglobin 30.9 pg (26.7-34.0); Mean Corpuscular Volume 95.9 fL (81.0-99.0); Mean Platelet Volume 9.1 fL (9.5-13.5); Monocytes Absolute Auto 0.7 10^3/uL (0.3-0.8); Monocytes Percent Auto 10.5 % (1.7-12.0); Neutrophils Absolute Auto 4.8 10^3/uL (1.4-6.5); Neutrophils Percent Auto 72.6 % (43.0-75.0); Platelet Count 227 10^3/uL (150-450); Red Cell Distribution Width 14.6 % (11.0-15.0); White Blood Count 6.7 10^3/uL (4.0-11.0)
[2024-06-25 06:45] LABS: Hemoglobin 6.8 g/dL (12.0-16.0)
[2024-06-25 06:54] LABS: Alanine Aminotransferase 31 U/L (14-59); Albumin Globulin Ratio 0.6; Albumin Level 1.9 g/dL (3.4-5.0); Alkaline Phosphatase 187 U/L (46-116); Anion Gap 13.3; Aspartate Amino Transferase 50 U/L (15-37); Bilirubin Total 0.3 mg/dL (0.2-1.0); Calcium 7.7 mg/dL (8.5-10.1); Carbon Dioxide 21.4 mmol/L (21.0-32.0); Chloride 99 mmol/L (98-107); Estimated GFR (African America >60 (>=60 mL/min/1.73m^2); Estimated GFR (Non-African Ame >60 (>=60 mL/min/1.73m^2); Globulin 3.3 g/dL; Glucose 90 mg/dL (74-106); Magnesium 1.5 mg/dL (1.8-2.4); Potassium 3.7 mmol/L (3.5-5.1); Sodium 130 mmol/L (136-145); Total Protein 5.2 g/dL (6.4-8.2)
--- NOTE | 2024-06-25 08:51 | CA_ITS ---
Patient Name: LAURA ADAMSON MR#: [id number] : 1960 Exam Date: 06/25/2024 Ordering Doctor: DR ASIM CALVIN . ECHOCARDIOGRAM REPORT PROCEDURE: CA ECHO DOPPLER COMPLETE INDICATIONS: dyspnea, etoh, anemia COMPARISON: None. DESCRIPTION: COMPLETE ECHOCARDIOGRAM Real-time transthoracic echocardiography with 2D, M-mode, spectral and color flow Doppler performed. QUALITY: Technical quality was good. LEFT VENTRICLE: Normal chamber size. Mild concentric left ventricular hypertrophy. Normal systolic function. LV EF: Normal left ventricular ejection fraction, (>55%). DIASTOLIC: Grade I diastolic dysfunction. ATRIAL SEPTUM: LEFT ATRIUM: Moderate dilatation. RIGHT ATRIUM: Mild dilatation. RIGHT VENTRICLE: Normal chamber size. Normal right ventricular systolic function. TRICUSPID VALVE: Normal mobility and thickness. No stenosis with trivial regurgitation. Doppler studies reveal mildly (35-45) elevated right sided pressures. RVSP 40 mmHg MITRAL VALVE: Normal mobility and thickness. Moderate mitral annular calcification. No mitral regurgitation. No mitral stenosis. AORTIC VALVE: Normal trileaflet appearance. Mildly calcified aortic valve. Mildly diminished mobility. No evidence of aortic valve stenosis. No aortic regurgitation. AORTIC ROOT: Normal diameter and appearance. PULMONIC VALVE: Not well visualized. No stenosis. No regurgitation. PERICARDIUM: No evidence of pericardial effusion. IVC: IVC is normal in size, does not collapse. PLEURA: CONCLUSION: 1. Mild concentric left ventricular hypertrophy with normal systolic function. Estimated LVEF is 60%. 2. Normal right ventricular size and systolic function. 3. Mild diastolic dysfunction. 4. Calcifications seen in the aortic valve and the mitral annulus. 5. No significant valvular dysfunction. 6. Mildly elevated right-sided pressures. Adult Echocardiography Procedure Report Left Ventricle LVEDD (3.7 - 5.6 cm): 3.87 cm LVESD (2.2 - 4.0 cm): 3.08 cm LVIVS thickness (0.6 - 1.2 cm): 1.31 cm LVPW thickness (0.5 - 1.0 cm): 1.10 cm e': 0.08 m/s E - e': 9.11 LVOT Max Gradient: 5.48 mm[Hg] LVOT Area (cm2): 1.17 m/s Peak Velocity (LVOT): 1.17 m/s Mean Velocity (LVOT): 0.81 m/s LVOT Diameter 2.16 cm Left Atrium LA Volume Index (2D A2C): 38.33 ml/m2 Left Atrium Systolic Dimension: 3.72 cm Mitral Valve MV E to A Ratio: 0.77 Mitral Valve A-Wave Peak Velocity: 1.01 m/s Mitral Valve E-Wave Peak Velocity: 0.77 m/s Right Ventricle Aorta AO Root Diam: 3.66 cm Aortic Valve AoV Area (Peak Francesco): 2.79 cm2, 2.79 cm2 AoV Area (VTI): 3.02 cm2, 3.02 cm2 Peak Velocity(Antegrade Flow): 1.54 m/s Peak Gradient(Antegrade Flow): 9.48 mm[Hg] Mean Velocity(Antegrade Flow): 0.98 m/s Mean Gradient(Antegrade Flow): 4.60 mm[Hg] Velocity Time Integral: 30.62 cm Tricuspid Valve Peak Velocity (Regurgitant Flow): 2.84 m/s Pulmonic Valve Mean Gradient: 2.35 mm[Hg] Mean Velocity: 0.74 m/s Peak Velocity: 1.00 m/s Peak Gradient: 4.03 mm[Hg] Right Atrium Right Atrium Systolic Pressure: 26.25 ml, 26.25 ml Dictated by: Billy Roberto M.D. on 06/25/2024 at 20:01 Approved by: Billy Roberto M.D. on 06/25/2024 at 20:05
--- NOTE | 2024-06-25 08:52 | CM.NOTE ---
Rounds made with Dr. Al, pt will receive unit PRBC's today. Pt will also have PT evaluation for discharge planning. Pt will remain OBS status.
[2024-06-25] MEDS: ACETAMINOPHEN 500 MG TABLET 1000 MG PO ×2 (09:20→21:46)
[2024-06-25] MEDS: MULTIVIT INFUSN,ADULT 4,VIT K 10 ML, FOLIC ACID 1 MG, THIAMINE HCL 100 MG in DEXTROSE 5... 250 ML IV (09:21)
[2024-06-25] MEDS: PANTOPRAZOLE SODIUM 40 MG VIAL IV (10:16)
[2024-06-25] MEDS: METOPROLOL SUCCINATE 25 MG TAB.ER.24H PO (10:16)
[2024-06-25] MEDS: POTASSIUM CHLORIDE 10 MEQ ER TABLET PO (10:16)
[2024-06-25] MEDS: ASPIRIN 81 MG TABLET.DR PO (10:16)
[2024-06-25] MEDS: CLOPIDOGREL BISULFATE 75 MG TABLET PO (10:17)
[2024-06-25] MEDS: NIFEdipine 30 MG TAB.ER.24 PO (10:17)
[2024-06-25] MEDS: MAGNESIUM SULFATE IN WATER 4 GM/100 ML PIGGYBACK IV (10:17)
[2024-06-25] MEDS: 0.9 % SODIUM CHLORIDE 1,000 ML 100 ML IV ×2 (10:18→22:36)
[2024-06-25] MEDS: CLORDIAZEPOXIDE HCl 25 MG CAPSULE PO (10:21)
[2024-06-25] MEDS: DIPHENHYDRAMINE HCL 25 MG CAPSULE PO (10:39)
[2024-06-25] MEDS: BUDESONIDE 0.5 MG/2 ML AMPULE NEB IH ×2 (11:47→22:52)
[2024-06-25] MEDS: IPRATROPIUM/ALBUTEROL SULFATE 3 ML AMPUL.NEB IH ×3 (11:47→22:52)
--- NOTE | 2024-06-25 12:53 | CM.NOTE ---
Medicare Outpatient Observation Notice discussed with pt, pt verbaizes understanding and signs paper. Original given to pt and copy placed on pt's chart.
--- NOTE | 2024-06-25 13:03 | SWNOTE1 ---
SALIMA met with daughter and pt in room. Pt is alert and oriented. Pt does admit to drinking at home. Her drink of choice is Budweiser. She is not certain on the number of beers and has voiced it depends on the day and what is going on. She stated maybe up to 8 some days. SW did ask about AA, outpt, and inpt rehab. Pt has voiced she used to go to AA, but did not feel it helped. Daughter did chime in and say she was at [facility] when daughter was a child for inpt, but other than that, nothing recently. SW asked pt if she would be interested in any resources or for SW to set up for her to go to inpt or outpt services? Pt stated no she does not want any of that. SW did advise pt that she could benefit from these resources and it would help her to stop drinking. Pt again stated she is not interested. SW did ask permission to speak with pt's daughter. Pt wanted us to speak in the room. Daughter did ask about a nurse coming in to the home every other day. SW did explain there is HH services, but the nurse would likely only come 1-2 times a week and it would be for a limited time through her insurance. SW let them know that therapy will work with her as well to see if she would benefit from some in home therapy. Daughter asked about AL? SW explained that some AL's are private pay and some take Medicaid as a form of payment. SW explained pt would have to apply for Medicaid. Daughter did state that pt rents her home and does not own it and she does not have much saved up. SALIMA did express to pt that AL is a great benefit as she would still have her freedom and she would also have the help if needed. Pt was starting to dose off. SW to print Medicaid howard and AL list. SW to review therapy notes. At this time no further needs. SW to follow as needed.
--- NOTE | 2024-06-25 13:14 | SWNOTE1 ---
SW placed [place] list, and [place] medicaid waiver program information in pt's room for daughter.
[2024-06-25] MEDS: 0.9 % SODIUM CHLORIDE 1,000 ML 1000 ML IV (13:51)
[2024-06-25 14:34] LABS: Basophils Percent Auto 0.4 % (0.2-2.0); Eosinophils Absolute Auto 0.1 10^3/uL (0.0-0.7); Eosinophils Percent Auto 0.7 % (0.9-7.0); Hematocrit 24.1 % (36.0-48.0); Immature Granulocytes Abs Auto 0.03 10^3/uL (0.00-0.03); Immature Granulocytes Pct Auto 0.3 % (0.0-0.5); Lymphocytes Absolute Auto 0.8 10^3/uL (1.2-3.8); Lymphocytes Percent Auto 7.9 % (20.5-60.0); Mean Corpuscular HGB Conc 33.2 g/dL (29.9-35.2); Mean Corpuscular Hemoglobin 31.1 pg (26.7-34.0); Mean Corpuscular Volume 93.8 fL (81.0-99.0); Mean Platelet Volume 8.8 fL (9.5-13.5); Monocytes Absolute Auto 0.8 10^3/uL (0.3-0.8); Monocytes Percent Auto 8.1 % (1.7-12.0); Neutrophils Absolute Auto 8.4 10^3/uL (1.4-6.5); Neutrophils Percent Auto 82.6 % (43.0-75.0); Platelet Count 217 10^3/uL (150-450); Red Blood Count 2.57 10^6/uL (4.20-5.40); Red Cell Distribution Width 14.5 % (11.0-15.0); White Blood Count 10.2 10^3/uL (4.0-11.0)
[2024-06-26] VITALS (15 sets, daily range): BP systolic 94–107; BP diastolic 56–66; PULSE 80–101; TEMP 36.6–36.8; O2SAT 90–95
[2024-06-26] MEDS: CLORDIAZEPOXIDE HCl 25 MG CAPSULE 50 MG PO ×2 (00:27→07:57)
[2024-06-26] MEDS: IPRATROPIUM/ALBUTEROL SULFATE 3 ML AMPUL.NEB IH ×3 (04:44→16:57)
[2024-06-26 05:50] LABS: Basophils Percent Auto 0.5 % (0.2-2.0); Eosinophils Absolute Auto 0.2 10^3/uL (0.0-0.7); Eosinophils Percent Auto 3.1 % (0.9-7.0); Hemoglobin 7.6 g/dL (12.0-16.0); Immature Granulocytes Abs Auto 0.04 10^3/uL (0.00-0.03); Immature Granulocytes Pct Auto 0.6 % (0.0-0.5); Lymphocytes Absolute Auto 1.3 10^3/uL (1.2-3.8); Lymphocytes Percent Auto 19.5 % (20.5-60.0); Mean Corpuscular HGB Conc 32.9 g/dL (29.9-35.2); Mean Corpuscular Hemoglobin 31.4 pg (26.7-34.0); Mean Corpuscular Volume 95.5 fL (81.0-99.0); Monocytes Absolute Auto 0.5 10^3/uL (0.3-0.8); Monocytes Percent Auto 7.2 % (1.7-12.0); Neutrophils Absolute Auto 4.5 10^3/uL (1.4-6.5); Neutrophils Percent Auto 69.1 % (43.0-75.0); Platelet Count 214 10^3/uL (150-450); Red Blood Count 2.42 10^6/uL (4.20-5.40); Red Cell Distribution Width 15.3 % (11.0-15.0); White Blood Count 6.5 10^3/uL (4.0-11.0)
[2024-06-26 06:09] LABS: Alanine Aminotransferase 44 U/L (14-59); Albumin Globulin Ratio 0.6; Albumin Level 1.6 g/dL (3.4-5.0); Alkaline Phosphatase 174 U/L (46-116); Anion Gap 8.7; Aspartate Amino Transferase 91 U/L (15-37); BUN Creatinine Ratio 7.5; Calcium 7.3 mg/dL (8.5-10.1); Carbon Dioxide 24.4 mmol/L (21.0-32.0); Chloride 103 mmol/L (98-107); Estimated GFR (African America >60 (>=60 mL/min/1.73m^2); Estimated GFR (Non-African Ame >60 (>=60 mL/min/1.73m^2); Globulin 2.9 g/dL; Glucose 93 mg/dL (74-106); Potassium 3.1 mmol/L (3.5-5.1); Sodium 133 mmol/L (136-145); Total Protein 4.5 g/dL (6.4-8.2)
--- NOTE | 2024-06-26 06:14 | P.DS_ITS ---
DS: Providers Provider Date of admission: 06/25/24 00:44 Primary care physician: Casandra Jauregui MD Consults: 06/25/24 08:51 Physical Therapy Eval and Treat Routine Reason for consultation: eval DS: Diagnosis Discharge Diagnosis (1) Anemia: (2) Alcohol intoxication: (3) Skin tear: (4) Fall: Plan Admission findings: Alcohol intoxication, respiratory distress, right rib contusion, severe anemia with hemoglobin less than 8 in ER, now less than 7, significant hyponatremia Acute upper gastrointestinal bleeding resulted in acute upper gastrointestinal blood loss anemia-hemoglobin now less than 7, will type cross and transfuse 1 unit start patient on IV Protonix Hyponatremia likely secondary to alcohol intoxication-IV fluids, serial testing Alcohol abuse-patient placed on CIWA scale and as needed medications Elevated liver function test likely related to the alcohol abuse, monitor daily Hypomagnesemia-supplement COPD-as needed inhalers no acute exacerbation Hypertension-continue with current medications Admission status: Patient was acute upper gastrointestinal blood loss anemia with a hemoglobin of less than 7, alcohol abuse by history, patient likely to have alcohol withdrawal symptoms, will start patient off as observation, if medically necessary treatment will span 2 midnights she will be changed to inpatient status. ? DS: Summary Hospital Course Hospital Course: Patient admitted after a fall found to have significant alcohol intoxication, she drinks about 12 beers a day at least it sounds like, does not have any interest in stopping, also found of acute anemia from acute upper gastrointestinal blood loss anemia due to acute upper gastrointestinal bleeding although uncertain when that timeframe was, her stool occult was negative but significant anemia requiring transfusion, she received 1 unit, hemoglobin came up nicely but then dropped, repeat hemoglobin now is up nicely again, patient is able to safely ambulate in the room, attempted to get urine sample prior to discharge, but will discharge patient to home in improving condition. Medications to this. Follow-up with PCP within the next week. Status at Discharge Overall status at discharge: patient is not back to baseline Time Spent with Patient Time attestation: Total time spent providing and/or coordinating discharge services: Time spent: greater than 30 minutes Exam Constitutional Vital Signs, click to edit/add: Last Vital Signs Temp 97.9 F 06/26/24 03:55 Pulse 85 06/26/24 06:06 Resp 18 06/26/24 04:44 BP 96/58 06/26/24 03:55 Pulse Ox 95 06/26/24 04:44 O2 Del Method Room Air 06/26/24 04:44 Documenting provider has reviewed patient's vital signs: yes Common normals: no apparent distress Respiratory Common normals: normal respiratory effort Cardio Common normals: regular rate and regular rhythm GI Common normals: Normal to inspection, nondistended, normoactive bowel sounds present, soft to palpation and non-tender DS: Data Data Completed and Pending Labs on day of discharge: Labs from last 24 hours 06/26/24 06/25/24 06/25/24 05:43 14:28 07:26 WBC 10.2 RBC 2.57 L Hgb 8.0 L Hct 24.1 L MCV 93.8 MCH 31.1 MCHC 33.2 RDW 14.5 Plt Count 217 MPV 8.8 L Neut % (Auto) 82.6 H Lymph % (Auto) 7.9 L Casey % (Auto) 8.1 Eos % (Auto) 0.7 L Baso % (Auto) 0.4 Neut # (Auto) 8.4 H Lymph # (Auto) 0.8 L Casey # (Auto) 0.8 Eos # (Auto) 0.1 Baso # (Auto) 0.0 Abs Immat Gran (auto) 0.03 Imm/Tot Granulo (auto) 0.3 Sodium 133 L Potassium 3.1 L Chloride 103 Carbon Dioxide 24.4 Anion Gap 8.7 BUN 4.0 L Creatinine 0.53 L Est GFR ( Amer) >60 Est GFR (Non-Af Amer) >60 BUN/Creatinine Ratio 7.5 Glucose 93 Calcium 7.3 L Magnesium 2.0 Total Bilirubin 1.0 AST 91 H ALT 44 Alkaline Phosphatase 174 H NT-Pro-B Natriuret Pep Total Protein 4.5 L Albumin 1.6 L Globulin 2.9 Albumin/Globulin Ratio 0.6 Lipase Blood Type B Positive Antibody Screen Negative Crossmatch See Detail 06/25/24 05:52 WBC 6.7 RBC 2.20 L Hgb 6.8 L* Hct 21.1 L* MCV 95.9 MCH 30.9 MCHC 32.2 RDW 14.6 Plt Count 227 MPV 9.1 L Neut % (Auto) 72.6 Lymph % (Auto) 12.8 L Casey % (Auto) 10.5 Eos % (Auto) 3.2 Baso % (Auto) 0.6 Neut # (Auto) 4.8 Lymph # (Auto) 0.9 L Casey # (Auto) 0.7 Eos # (Auto) 0.2 Baso # (Auto) 0.0 Abs Immat Gran (auto) 0.02 Imm/Tot Granulo (auto) 0.3 Sodium 130 L Potassium 3.7 Chloride 99 Carbon Dioxide 21.4 Anion Gap 13.3 BUN 2.0 L Creatinine 0.50 L Est GFR ( Amer) >60 Est GFR (Non-Af Amer) >60 BUN/Creatinine Ratio 4.0 Glucose 90 Calcium 7.7 L Magnesium 1.5 L Total Bilirubin 0.3 AST 50 H ALT 31 Alkaline Phosphatase 187 H NT-Pro-B Natriuret Pep 319.0 Total Protein 5.2 L Albumin 1.9 L Globulin 3.3 Albumin/Globulin Ratio 0.6 Lipase 30.0 Blood Type Antibody Screen Crossmatch Discharge Plan Discharge Disposition: Home Health Service Condition: Fair Discharge Medications: New pantoprazole [Protonix] 40 mg tablet,delayed release (DR/EC) 40 mg PO DAILY Qty: 30 11RF Continued albuterol sulfate 90 mcg/actuation HFA aerosol inhaler 2 puff INHALATION Q6H PRN (Reason: shortness of breath or wheezing) aspirin 81 mg tablet,delayed release (DR/EC) 81 mg PO DAILY budesonide-formoterol [Symbicort] 160-4.5 mcg/actuation HFA aerosol inhaler 2 puff INHALATION Q12H clopidogrel 75 mg tablet 75 mg PO DAILY metoprolol succinate 25 mg tablet extended release 24 hr 25 mg PO DAILY nifedipine 30 mg tablet extended release 24hr 30 mg PO DAILY potassium chloride 10 mEq tablet extended release 10 meq PO DAILY Activity: resume usual activities as tolerated Diet: advance to your usual diet Print Language: Swedish Patient Instructions: Pantoprazole (By mouth), Laceration (DC), Anemia (DC), Fall Prevention (DC) [employer] Instructions: Discharge home with [facility] , they plan on starting services 06/27/24. Phone number is [phone] Forms: Portal Instructions Referrals: Casandra Jauregui MD [Primary Care Provider] - Follow Up Appointments: @ 11am with Dr. Jauregui [phone] Discharge Date/Time: 06/26/24 17:57
[2024-06-26 06:19] LABS: Hematocrit 23.1 % (36.0-48.0)
[2024-06-26] MEDS: PANTOPRAZOLE SODIUM 40 MG VIAL IV (07:57)
[2024-06-26] MEDS: NIFEdipine 30 MG TAB.ER.24 PO (09:15)
[2024-06-26] MEDS: THIAMINE MONONITRATE (VIT B1) 100 MG TABLET PO (09:15)
[2024-06-26] MEDS: FOLIC ACID 1 MG TABLET PO (09:15)
[2024-06-26] MEDS: ASPIRIN 81 MG TABLET.DR PO (09:15)
[2024-06-26] MEDS: MULTIVITAMIN TABLET 1 TAB PO (09:15)
[2024-06-26] MEDS: CLOPIDOGREL BISULFATE 75 MG TABLET PO (09:15)
[2024-06-26] MEDS: 0.9 % SODIUM CHLORIDE 1,000 ML 100 ML IV (09:15)
[2024-06-26] MEDS: METOPROLOL SUCCINATE 25 MG TAB.ER.24H PO (09:15)
[2024-06-26] MEDS: POTASSIUM CHLORIDE 10 MEQ ER TABLET PO (09:16)
--- NOTE | 2024-06-26 09:31 | CM.NOTE ---
Rounds made with Dr. Al, will recheck Hgb this afternoon and if stable pt will discharge to home and f/u with PCP.
--- NOTE | 2024-06-26 09:32 | SWNOTE1 ---
Physical therapy did recommend home health at discharge. SW spoke to pt and she is agreeable. She does not have preference, but did state when she broke her hip she had [facility]. [facility] Referral included face sheet, ED note, H&P, provider notes, and PT note.
--- NOTE | 2024-06-26 10:52 | SWNOTE1 ---
SW received call from [facility] and they are not able to accept. They did recommend [facility] due to assistance with behavioral health due to alcohol. Referral sent to [facility]. Referral included face sheet, ED note, H&P, provider notes, and PT note.
[2024-06-26] MEDS: BUDESONIDE 0.5 MG/2 ML AMPULE NEB IH (11:04)
--- NOTE | 2024-06-26 11:34 | SWNOTE1 ---
SALIMA received a call from [facility] and they are not able to accept due to being at capacity for this insurance. SALIMA sent referral to [address]
[2024-06-26 12:54] LABS: Hematocrit 28.9 % (36.0-48.0); Hemoglobin 8.9 g/dL (12.0-16.0); Mean Corpuscular HGB Conc 30.8 g/dL (29.9-35.2); Mean Corpuscular Hemoglobin 31.1 pg (26.7-34.0); Mean Platelet Volume 9.1 fL (9.5-13.5); Platelet Count 216 10^3/uL (150-450); Red Blood Count 2.86 10^6/uL (4.20-5.40); Red Cell Distribution Width 15.7 % (11.0-15.0); White Blood Count 8.1 10^3/uL (4.0-11.0)
--- NOTE | 2024-06-26 13:28 | SWNOTE1 ---
SW spoke to [facility]. They stated they have to have someone come to hospital to do an on-site prior to accepting as a new patient. SALIMA advised them that we are unsure of time of discharge, but she is likely discharging today. SALIMA to try and find out time and call back. SW reached out to nurse and pt just had her blood drawn, so once we know if hemoglobin stable pt could go. SAILMA called [facility] back to inform them. They will inform team and try to get someone out here [place]. SW to notify pt.
--- NOTE | 2024-06-26 13:48 | SWNOTE1 ---
[facility] is here to see pt. SW took her to pt's room. When SW was talking with pt's niece and pt in room earlier, pt's niece stated that pt has Medicaid already. Pt's niece provided SW with [facility] Medicare/Medicaid dual plan. SALIMA made copies and sent copies to Diana in billing. SW did speak with pt and niece in regards to passport. SALIMA advised that SW is not sure if the dual plan will count in regards to the Medicaid for passport services. SW to provide niece with phone number for passport.
--- NOTE | 2024-06-26 14:13 | SWNOTE1 ---
SW received call from [address] and they are able to accept and has informed pt that if she is intoxicated when they come to do a visit, they will end services. Pt in agreement with this as well. SW faxed [facility], insurance cards, and updated face sheet with niece's number on it.
[2024-06-26] MEDS: ACETAMINOPHEN 500 MG TABLET 1000 MG PO (17:22)
--- NOTE | 2024-06-27 11:42 | CM.DCFOLLOWU ---
Person spoke with:patient How are you feeling? feeling short of breath. Family is at home with her right now. Advised to return to ED if continues How is your pain? no pain Did you understand your discharge instructions?yes Do you have any questions about your discharge instructions? no Were you given any prescriptions at discharge? yes Were you able to get your prescriptions filled?yes Do you understand how to take your medications as ordered?yes Do you have any questions about your follow up appointment and do you plan to keep your follow up appointment? no questions, reviewed follow up Is there anything else that you would like to discuss? no Questions/Comments/Concerns/Other: none
== END 2024-06-26 17:57 | disposition home health service (06) ==
LOC: ER 06-25 00:03 → MS 06-25 00:51
PROVIDERS: Registered Nurse; Admitting Provider Family Medicine; Emergency Provider Emergency Medicine; PCP Family Medicine; Visit Provider Family Medicine
DX: D62 Acute posthemorrhagic anemia (principal); K92.2 Gastrointestinal hemorrhage, unspecified; E87.1 Hypo-osmolality and hyponatremia; Z23 Encounter for immunization; S20.211A Contusion of right front wall of thorax, initial encounter; F10.129 Alcohol abuse with intoxication, unspecified; R06.03 Acute respiratory distress; R79.89 Other specified abnormal findings of blood chemistry; E83.42 Hypomagnesemia; J44.9 Chronic obstructive pulmonary disease, unspecified; I10 Essential (primary) hypertension; S41.111A Laceration without foreign body of right upper arm, initial encounter; W18.39XA Other fall on same level, initial encounter; Y90.7 Blood alcohol level of 200-239 mg/100 ml; R06.00 Dyspnea, unspecified; F17.210 Nicotine dependence, cigarettes, uncomplicated; Z79.899 Other long term (current) drug therapy
CPT/HCPCS: 36415; 36430; 70450; 71045; 80048; 80053; 80076; 80320; 81001; 82550; 83690; 83735; 83874; 83880; 84100; 84484; 85025; 85027; 85610; 86850; 86900; 86901; 87086; 90471; 90715; 93005; 93306; 94640; 94667; 94668; 94761; 96365; 96366; 96368; 96375; 96376; 97110; 97161; 97530; 99285; 99406; G0328; G0378; J3411; J3475; P9016

== ENCOUNTER 2024-06-28 14:49 | Inpatient (IN) | payer MEDICARE, SELFPAY ==
[2024-06-28] VITALS (50 sets, daily range): BP systolic 103–137; BP diastolic 55–87; PULSE 116–158; RESP 14; TEMP 36.4–37.4; O2SAT 89–100; BMI 23.5; BMI 25.0
--- OUTSIDE RECORDS SUMMARY | 2024-06-28 14:57 | XMS_ITS | CCD ---
Author Organization [facility] Care Team Providers Care Sleep Lab Technologist Name Role Phone WANDA WHEELER Unavailable Unavailable WANDA WHEELER Unavailable Unavailable JULIOCESARADDY CAPPS Unavailable Unavailable JULIOCESAR, ADDY Unavailable Unavailable [place] Unavailable Unavailable UNKNOWN, PROVIDER Unavailable Unavailable Ximena [...] Care Unavailable SARAH, DR MONET Attending Unavailable SONDHEIMER, DR PAWAN Vazquez Consulting Unavailable SARAH, DR [...] grover Baltazar MD, Judy Primary Care Provider [phone] Ximena Astudillo MD Unavailable CHANA LEMONS Referring [...] Propensity to adverse reactions 03-06 8 Comment:Done [employer] Other (1 source) Allergies Reconciled Propensity to adverse reactions Unknown [employer] Other Medications Current Medications Medication Drug Class(es) [...] Refills(s) 0 Start Date: 10/12/23 Status: Ordered [id number] 200 actuat albuterol 0.09 mg/actuat metered dose [...] Start: 10-12-2023 take 2 tablets by mo [facility] once as needed for constipation bisacodyl 5 [...] 2023 11:48am Start: 11-01-2021 Potassium Chlo ride (Wcu-Cufg-Qpq 10) mEq, Oral, BID, Refills(s) 0 Start [...] Dates Sig (Normalized) Sig (Original) fluocinolone acetonide 0.85283 mg/mg topical ointment (8 sources) Corticosteroid Start: [...] Unstable angina; Translations: [Atherosclerotic heart disease of [place] coronary artery without angina pectoris] Onset: 02-12-2017 [...] 03-04-2018 01-20-2010 Chronic Other aftercare (2 sources) 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 IHTRWhjx51HQe6fYs+PG hlYWQ+PE1F GRPtM16cjNKzzN2eN1ZSJJpILyqnRC FSBMcIQqEbhdEyAN1ezFVdBAKz IC8+TQ3pGKDgBwplmUTfe3P5aSO6I8 5scn3zVYfuaVB2CAUoIcFsdbodq1vh jAp6ATicGoqnXnSz YVQvnD63LMR6oD29Xt32xENceFMkp3 dveNg0VxDjHKArWBQ5kDykSAmfz2Rb PATnY27kxFLkd6H9 MCYfkPhqlTWkOkSdnRV8hI0uCIhcsf pmy9wpwcyzZim5cx20pCXqh2N7lQU8 I6YrswL5JAEzxBJv YaphoOLFjA7bzzmdn5jeqwotOkOaEJ MtJBe6IId4WURrvOmlPoLfCB82HWF1 VAMbblBpO6AmDKMw qUlbMtJ4i4S0Jc9RM0EJZilvR3VHNB FSWTwvdGQ+ZE13xy91Z8RgSgrdPax3 UOTkRQP9xKY7aD9l CEUpTVmwx3N7bYR6G5QmdiNfdj0ls7 npMNFkTDtrV71ogKOlt0T1BFVblRM0 RFUrgCrfElKnyI55 Oyc+JMAsoFhdu2XcJsssz6doq3uilJ p9ClivGERdmvEkgMotWSN8w2TgSx6w WSGapLL8nER6vK9q EhHdIyL7OTdrK122JhBbsBWcUkdxH6 4zG7RaqCB+IZZoYgx7OHHhfEzsFG5o X4GtNNCpexrhvJEj nWdaDN6aOWUoartiCOBkzJ3nJNTlO2 w7QkOhChU2HCnlG2XtKWKrtokcBc15 cU9wGsHwMgP4GVgw X0XeaaN8QPDwnUZaSIhaNIA9U51vl7 G2CURxTVCiVQF9kLW2cL6tuWygbnon bGVmdDsgdmVydGlj VWpfVLumJ469HXAlyEdsXkEvNFihKm BEYXRlOiAgMDYvMTkvMjAyNDwvdGQ+ XOWzDEI8zCjoOWIz lDUiGKbfZx7zpSwyrJepXZ5vGXCwgj odYMVewD9xWCNojWZasAlmOE6jPEIb pwpsz395YbYkVQS0 OJYnqDGqR5LcfG6dAkRpXSGaPOUqD0 AqiPDpMJqrD046BYxzXmM4LJYntlNh J7EeULIiySlkZzP4 b7C0Ji8Un0UoahwwI9UhwSItGfRfLz mpHYn6B3GdNucvcCE+HZ31WCQpDT15 DWm6FBB1zCqeMIrn FCEgD3RjlL1aShFcALVcPQAaSty+PH RhYmxlIHdpZHRoPScxMDAlJyBzdHls WN7cIm6dGDFeMTWg vVwoqARcUdBlt0hnHMDdKPifYL4vqI afA7UadRL8TFHyb3o3Yt79T27rR0Yj dXA+WALlwIM0kVW4 iP8aFiQcRmK8UVapK906SvTzqWCcSw ull3jjk9kkmDx5LwD5WLIwttJqgOkd JYH1q5FoSh58U34d MHqiOFAyBTVbRVWsJTXotRhowz6rxK 9wIi8+YSXjcFE1aQG6bY7xQrRgNkG2 HWpxJ818KlGyhJGo Byorw2poc8ibbYf7EaJuBPBfonDmvG plAFD1v3NiHz07Q4WepLmwa3WyPnd2 ck87iLPwh4T4lIG5 F7EbLPEiztaucPYupUizPQ2jZEUqpi qkZHKlvQ8lGEFsR7s6HaQnSiZ4UWve H7MwutT5BDAzbRBg GGNbmJAQeB6wxyzck9viowowZyZxNG BwTYs4YBs6HWTnaDliBgHiGMC1KjO8 ODZ3rHGucU0lwFne bhixrL8yRnr+MQN2fJWgaMZFXX1jZd wvdGQ+GNVkQCY4pHndKXvzYQZavS2c RVPdN4i6KxHkYcQ5 LJxkN8XhypC8TGGevWCfJZVqfASGmD 9vctaxf7nhttxeItAeKWXiBVq4ZHs0 LWFsaWduOiBsZWZ0 KbL2BLB1aDPgyD6pxPtqrbvgdT6cJz c+FpioeHbyJNX3KVn7Z3XfLhs8IGFc jMjvSZ3wjOMsAPmc Nf4zjZkmzDyjQV0nOFSpqpykx222Pz Ied8vxQUDsvXGsCGvbLGI7Z26rf8R9 RHOzXAKvKIG4zXJ4 kN8dwNcvpksmqTIjmBlulnUieJwdSE fqIAsrV774MMAfdZjyOfMmVJx4X5Hu Bum2LXBmqVtsBQ9o iTPkTHogHw2xtKrkeJtaVJ0nVMBovd lnx881OdOhl5xkBHGjpLBpPXfoTYS5 W06vj3L6RGDcIZYu HUP9oXG0pA5qrRiwqtgxtQVbaMcxer GjqXtoEKgvCGyaX695YKHwoHkzXwGl xKf0N6PlXbu3TUVz jFehTB4vyGDjOPqiGd3vzUtnzSxpRQ 8kHSJvcvqco877WrYno5kqYDFkwOHh LCabBGU0N22mv9B1 XCHfXAXhSEJ1jDF4nF8xqWargfyneS PacLmqqoHjnKusWBkmEYhuG011NEQj cDsnPlBhdGllbnQg NBiwXXe1Y9PjDwyukJX+XH41NTTsZF 42hLPqsNDlg7xcySm1MkIhCNUnZCE8 cLifZShpv2TaSDPu M56xrPTar4H4OGWvfRgfqGOkZpBesJ K3iD0sIJccfpmkv2indzqgTmbqm7vy wg82uZ94F42eDAtd BAUnNGOiESTnPGQjmZvfow5ytJ9jLy 8+ZDQnzYO1lAM1hQ4cWQIkPnN2UUnh A027RyDaoJJuKnai s7kcg7drgKy6YyC3FPCczhSwbCgbZF M7s6IlWu62Z91dMWiyYRCzWFFjNWWu PVCygGynjk9arR6c Ii8+FVHfyKB8iFW6tO7yIsOzBrB6KY npS493TrZhbRSpZakqE70tL9JeiAS+ ERHdAkf6CLKchMgc ES4btIFnXBuqZx5hGEA7OqZrKgZdQF rdI2UiODLsoosrizaizFZ5NINyWJWz jW36Hj9yuVrnMGJy fQPExF2alwqcm9xthmrxIiHtSCAoZG x9NMk5XHZfeVpiMnZjKOC6XhL2KNO1 zHFmpI3blThhhdbz vL0yD9UyHXLisjjrZm56uN3lPeCcOn I0BZtaEsd+MJnJYbKMPNKKARFWIA1D QIY9I4YoPbh6DGHb gJnsYW2xrEFxJKlgEi2acDzdhIosQV 2rSGJlqsjlJHYvuH4jRFImvMJbyBom EV6zKNEcymfcb163 RbEeVON0UHHnbNNnQ8ZqmR8yQpDfCA LrOFZqW9HnePDdAUgdZ381LDdiBjO2 RJAaadCkG5PwIKOb bRgoCsB3l0Y3Ea4nJh2tKM7qMPH6UK 59YO55yPRpa7O0kAR0I4UwIFJbvugi lhcmpVM1VDWkTJZi iN54yIHeMPpcRs4dr7Y3c916ZZNjEC SqdH22Px5kpNsbPVDdsPZFlT5wioay c6viosloVyDlXSXv QXe1KPf2OJLbmAzlJvKxUZU2QvO3BU J5eZKutN5qjJksyrhgtR7jVhu+NjUg LXFxkhN5U5WtXnq9 YPLdiZrlLB3ecLWdTCpmLe7urYsoyA alWU0aKQYrrqprOGEwvO1oNGLbvOQm eDpxPS7gENRgutua v631KkPaSBA2TMAmiGUoJ3UvyO6hRp WmOZSrJLEwG7TslWYeJDphK938JXbm GxH8HXEzjdKgT5Jo XHDsvSonNqW6j9N6Up2GPL4srQV5S7 CkYov7GRKlsKttHW0sxTOzZQbuPa2p rQtpbMazTN6oXNYq unwkKIMnoH0qAODkpOKfsCanNZ8qEK Riwbbff694HcXyCTM4XLRoaMIoN6Mr bQ8qJcLyDUWxCRRq F6JobNDmDVhrA651LGemTqO0BMMaqb QrL3ToDCPjrWjnShB3d3D9Ce2NxdSr dDiuzgY9H0MbVtet dHI+FA81MNOcHH03gWGjnWYsu9zifV a6LnSrAXLwWJN1pMjcIZsyh4FhKGYi S98zkBCso2N0FWZv qMwqaXLlRnNenHX1aP2nNAikgpdch2 snwhzwBbjxf8jrrb04gI42X91cFLhh ZHRoPSIzMCUiIHZh wMfnwl2pqU0sYl8+LWSzyIX3rRY2qN 2eXiWjAuM5RAhdC648HsPppGEuKkrv c8hye2wfmHj9QsOa RRSrhjYixWmxSMX1p9WySi55Z47jSZ haGNGyHYFxGKXdDRBlaTsgpj6vnB0s Ii8+HL9sx2izlg68 eQ43eJW+OQEaVDK0yCquSBfzKVWhtQ 9cNFfaBdK5QEWiNnPhnJ80nDTpZPjl Gk8kpKjizNxwZC8t VVIenvvlu038NuTny2bqFDBapWCmNJ eyNXV0N60di9X5ACKwUZRnWMO7bIA1 cK1ueVbwrxrkhWZj aHxcreVpsIyuPHhqWLzpV226WPVwbG xjOqWasPNtG9lrzoFJYT8aKmbdsPX+ YSZoYKI1tSxrGJvn JYWddF7oSEBzB0l2HvHaWgS2JZzpY8 NtcnX7XSVkiBKhYHGbtCWNhO3kpqtu x5wxdfmvNoUkSRRk YLb2PRn6SDWyvFooXpVaTOQ4JlT1JZ B8dPDfqM8kiTrtossnvB4yLmv+RklO OjwvdGQ+PHRkIHN0 fWjoVLkuFFRsyH9lXDAzW3g9ZdPyPr J1USbtO9MpozQ0EHQfwRGwLKBxaNZF mT5eitufl0bbrndx MaIyETXzDPa9UQw5STRjiUpjObXvUO M0AjC0BTV3fDBtoI7mcLvpqbmffQ4m Oyc+TVJOOjwvdGQ+ DYKaZPQ9xDzeOZmuLKBswE7rFCLiE8 z5UmKuBzZ4IKscZ7TqdwZ2XRRcmOHf UGGguWXMdQ3ldjbz a5dxraeiYiGbQUCwHQs7IKt4WKMjuI giEmNxCIG9NsL8ZWW0zSLizT9isOxe uxvbaT4qAap+UGF5 SOT7RE15HS60V2AjTzeflSDriQM+PH RhYmxlIHdpZHRoPScxMDAlJyBzdHls GX4zCx1xUSOpQSTz bGxhcHNlOiBjb (more content not included)... [facility] Coding Queryon 10-30-2023 Coding Query - From: [...] SW-This SW responded to a consult on [address] [place] [address] regarding ETOH / Substance abuse. Patient stated [...] Caller Number: H Alcohol Dependence, continuous Unspecified [facility] Discharge Instructionson Discharge Instructions [id number]#1.00TIFF [facility] Medication Listson Medication Lists [id number]#1.00TIFF [facility] Physician Orderon 10-17-2023 Physician Order [id number]#1.00TIFF [facility] Transfer Documentson 024 Transfer Documents [id number]#1.00TIFF [facility] Transfer Documents [id number]#1.00TIFF [facility] Transfer Documents [id number]#1.00TIFF [facility] Progress Note-Physicianon Progress Note-Physician GENERAL INFORMATION TRAUMA [...] 4. Dehydration 5. UTI patient admitted to [facility] with orthopedics consult. Hospital Course: 10/08/2023: Presented to the ED s/p fall 4 days prior. found above injuries. Admitted to [facility] with orthopedics consult. 24 Hour Events: No [...] Lymph Auto: 10.5 % Low (10/09/23 06:10:00) Millard Auto: 9.3 % (10/09/23 06:10:00) Eos Auto: 0.9 % (10/09/23 06:10:00) Basophil Auto: 0.5 % (10/09/23 06:10:00) Neutro Absolute: 8.5 E9/L High (10/09/23 06:10:00) Lymph Absolute: 1.1 E9/L (10/09/23 06:10:00) Millard Absolute: 1 E9/L (10/09/23 06:10:00) Eos Absolute: [...] toilet, en (more content not included)... Normal [facility] Comment on above: Result Comment: Elec [...] 4. Dehydration 5. UTI patient admitted to [facility] with orthopedics consult. Hospital Course: 10/08/2023: Presented to the ED s/p fall 4 days prior. found above injuries. Admitted to [facility] with orthopedics consult. 10/09/2023: OR with orthopedics [...] 18:07:21) Size: .062 (10/09/23 18:07:21) Size: 11MM [id number] DEGREE (10/09/23 18:07:21) Size: 10.5 X 100 [...] Lymph Auto: 7.2 % Low (10/10/23 05:04:00) Millard Auto: 8.6 % (10/10/23 05:04:00) Eos Auto: 0.2 % (10/10/23 05:04:00) Basophil Auto: 0.3 % (10/10/23 05:04:00) Neutro Absolute: 11.7 E9/L High (10/10/23 05:04:00) Lymph Absolute: 1 E9/L (10/10/23 05:04:00) Millard Absolute: 1.2 E9/L High (10/10/23 05:04:00) Eos [...] plavi (more content not included)... Normal [facility] Comment on above: Result Comment: Elec [...] 4. Dehydration 5. UTI patient admitted to [facility] with orthopedics consult. Subjective No acute events [...] days prior. found above injuries. Admitted to [facility] with orthopedics consult. 10/09/2023: OR with orthopedics [...] Lymph Auto: 13 % Low (10/11/23 05:05:00) Millard Auto: 9.3 % (10/11/23 05:05:00) Eos Auto: 4.3 % (10/11/23 05:05:00) Basophil Auto: 0.3 % (10/11/23 05:05:00) Neutro Absolute: 7.3 E9/L (10/11/23 05:05:00) Lymph Absolute: 1.3 E9/L (10/11/23 05:05:00) Millard Absolute: 0.9 E9/L (10/11/23 05:05:00) Eos Absolute: [...] mg/dL High (10/11/23 08:05:00) POC Device SN: [id number] (10/11/23 08:05:00) POC User ID: [id number] (10/11/23 08:05:00) POC Username: JERED JIANG (10/11/23 [...] ETOH and (more content not included)... Normal [facility] Comment on above: Result Comment: Elec tronically Signed By: Mckenzie Lerma PA-C\.br\Date and Time Signed: 10/11/23 08:55 EDT\.br\Electronically Co-Signed By: Art GARCIA, Regi Alvarez\.br\Date and Time Co-Signed: 10/14/23 12:20 EDT CBC w/ Auto Diffon 4 Basophils/100 WBC (Bld) 0.3 % Normal 0.0-2.0 [facility] Comment on above: Performed By: #### 2 [id number] #### [facility] [address] [place] [address] Basophils/Leukocyte s Auto (Bld) [Pure # fraction] 0.0 E9/L Normal 0.0-0.2 [facility] Comment on above: Performed By: #### 2 [id number] #### [facility] [address] [place] [address] Eosinophils (Bld) [#/Vol] 0.3 E9/L Normal 0.0-0.5 [facility] Comment on above: Performed By: #### 2 [id number] #### [facility] [address] [place] [address] Eosinophils/100 WBC (Bld) 3.9 % Normal 0.0-8.0 [facility] Comment on above: Performed By: #### 2 [id number] #### [facility] [address] [place] [address] Erythrocyte distribution width (RBC) [Ratio] 13.6 % Normal 10.9-14.2 [facility] Comment on above: Performed By: #### 2 [id number] #### [facility] [address] [place] [address] Hematocrit (Bld) [Volume fraction] 27.3 % Low 34.0-46.0 [facility] Comment on above: Performed By: #### 2 [id number] #### [facility] [address] [place] [address] Hemoglobin (Bld) [Mass/Vol] 9.2 g/dL Low 12.0-16.0 [facility] Comment on above: Performed By: #### 2 [id number] #### [facility] [address] [place] [address] Lymphocytes (Bld) [#/Vol] 0.9 E9/L Low 1.0-4.0 [facility] Comment on above: Performed By: #### 2 528195 #### [facility] [address] [place] [address] Lymphocytes/100 WBC (Bld) 12.3 % Low 14.0-50.0 [facility] Comment on above: Performed By: #### 2 [id number] #### [facility] [address] [place] [address] MCH (RBC) [Entitic mass] 32.4 pg Normal 27.0-34.0 [facility] Comment on above: Performed By: #### 2 [id number] #### [facility] [address] [place] [address] MCHC (RBC) [Mass/Vol] 33.8 g/dL Normal 31.4-36.0 [facility] Comment on above: Performed By: #### 2 390109 #### [facility] [address] [place] [address] MCV (RBC) [Entitic vol] 95.9 fL Normal 80.0-100.0 [facility] Comment on above: Performed By: #### 2 [id number] #### [facility] [address] [place] [address] Monocytes (Bld) [#/Vol] 0.7 E9/L Normal 0.2-1.0 [facility] Comment on above: Performed By: #### 2 357101 #### [facility] [address] [place] [address] Neutrophils (Bld) [#/Vol] 5.2 E9/L Normal 2.0-7.5 [facility] Comment on above: Performed By: #### 2 104296 #### [facility] [address] [place] [address] Neutrophils/100 WBC (Bld) 73.3 % Normal 36.0-75.0 [facility] Comment on above: Performed By: #### 2 261921 #### [facility] [address] [place] [address] Platelet 335.0 E9/L Normal 150.0-500. 0 [facility] Comment on above: Performed By: #### 2 720891 #### [facility] [address] [place] [address] Platelet mean volume (Bld) [Entitic vol] 7.2 fL Normal 6.4-10.8 [facility] Comment on above: Performed By: #### 2 114571 #### [facility] [address] [place] [address] RBC (Bld) [#/Vol] 2.9 E12/L Low 4.3-5.9 [facility] Comment on above: Performed By: #### 2 400106 #### [facility] [address] [place] [address] WBC corrected for nucl RBC Auto (Bld) [#/Vol] 7.0 E9/L Normal 4.0-11.0 [facility] Comment on above: Result Comment: Zainab pheral smear review performed. Performed By: #### 2 525359 #### [facility] [address] [place] [address] CHEMISTRYOrdered By: SYSTEM SYSTEM on 10-12-2023 Anion [...] SW-This SW responded to a consult on [address] [place] [address] regarding ETOH / Substance abuse. Patient stated [...] or expected. Thank you! An [phone] Normal [facility] Discharge Note-Nursingon Discharge Note-Nursing CATHERINE ADAMSON [...] 5 mg Tab) potassium chloride (Potassium Chloride (Yoc-Sysj-Wic 10)) senna (senna 8.6 mg Tab) sodium [...] and recheck right wrist and hip. Where: [address] [place] [phone] Business (1) Follow Up with XIMENA ASTUDILLO When: In 0 days Where: [address] [phone] Business (1) Medications What How Much When [...] a day (more content not included)... Normal [facility] HEMATOLOGYOrdered By: SYSTEM SYSTEM on 10-12-2023 [...] Gregory e Manageron 10-12-2023 Interdisciplinary Note - Textile Chemist CRM spoke with patient in room. Patient is alert and oriented and participates in discharge planning. No family in room. Patient white board updated, and CRM contact information provided. Discussed CRM spoke with Dr Cordova who saw patient earlier today and she will discharge to [facility] today. Patient states she could not get up today d/t pain and dizziness, will use [facility] to transport. . Reviewed Medicare rights, she denies any questions. Normal [facility] Comment on above: Result Comment: Elec tronically Signed By: Jose E DICKINSON, Luanne\.br\Date and Time Signed: 10/12/23 11:02 EDT Monitor Recordon 10-12-2023 Monitor Record [id number]#1.00TIFF Normal [facility] Monitor Record [id number]#1.00TIFF Normal [facility] BMPon 10-11-2023 Anion gap [Moles/Vol] 9 mmol/L Normal 6-16 [facility] Comment on above: Performed By: #### 2 [id number] #### [facility] [address] [place] [address] Calcium [Mass/Vol] 7.8 mg/dL Low 8.9-11.1 [facility] Comment on above: Performed By: #### 2 044201 #### [facility] [address] [place] [address] Chloride [Moles/Vol] 102 mmol/L Normal 101-111 [facility] Comment on above: Performed By: #### 2 479293 #### [facility] [address] [place] [address] CO2 [Moles/Vol] 22 mmol/L Normal 21-31 [facility] Comment on above: Performed By: #### 2 550624 #### [facility] [address] [place] [address] Creatinine [Mass/Vol] 0.7 mg/dL Normal 0.5-1.3 [facility] Comment on above: Performed By: #### 2 424811 #### [facility] [address] [place] [address] Glucose [Mass/Vol] 92 mg/dL Normal 55-199 [facility] Comment on above: Performed By: #### 2 172556 #### [facility] [address] [place] [address] Potassium [Moles/Vol] 3.9 mmol/L Normal 3.5-5.3 [facility] Comment on above: Performed By: #### 2 674183 #### [facility] [address] [place] [address] Sodium [Moles/Vol] 129 mmol/L Low 135-145 [facility] Comment on above: Performed By: #### 2 169898 #### [facility] [address] [place] [address] Urea nitrogen [Mass/Vol] 31 mg/dL High 5-21 [facility] Comment on above: Performed By: #### 2 801147 #### [facility] [address] [place] [address] Urea nitrogen/Creatinine [Mass ratio] 44 No Units High 10-20 [facility] Comment on above: Performed By: #### 2 [id number] #### [facility] [address] [place] [address] CBC w/ Auto Diffon 4 Basophils/100 WBC (Bld) 0.3 % Normal 0.0-2.0 [facility] Comment on above: Performed By: #### 2 312460 #### [facility] [address] [place] [address] Basophils/Leukocyte s Auto (Bld) [Pure # fraction] 0.0 E9/L Normal 0.0-0.2 [facility] Comment on above: Performed By: #### 2 591963 #### [facility] [address] [place] [address] Eosinophils (Bld) [#/Vol] 0.4 E9/L Normal 0.0-0.5 [facility] Comment on above: Performed By: #### 2 510556 #### [facility] [address] [place] [address] Eosinophils/100 WBC (Bld) 4.3 % Normal 0.0-8.0 [facility] Comment on above: Performed By: #### 2 705466 #### [facility] [address] [place] [address] Erythrocyte distribution width (RBC) [Ratio] 13.3 % Normal 10.9-14.2 [facility] Comment on above: Performed By: #### 2 562446 #### [facility] [address] [place] [address] Hematocrit (Bld) [Volume fraction] 25.9 % Low 34.0-46.0 [facility] Comment on above: Performed By: #### 2 984139 #### [facility] [address] [place] [address] Hemoglobin (Bld) [Mass/Vol] 9.1 g/dL Low 12.0-16.0 [facility] Comment on above: Performed By: #### 2 523914 #### [facility] [address] [place] [address] Lymphocytes (Bld) [#/Vol] 1.3 E9/L Normal 1.0-4.0 [facility] Comment on above: Performed By: #### 2 903088 #### [facility] [address] [place] [address] Lymphocytes/100 WBC (Bld) 13.0 % Low 14.0-50.0 [facility] Comment on above: Performed By: #### 2 915445 #### [facility] [address] [place] [address] MCH (RBC) [Entitic mass] 33.3 pg Normal 27.0-34.0 [facility] Comment on above: Performed By: #### 2 249841 #### [facility] [address] [place] [address] MCHC (RBC) [Mass/Vol] 35.2 g/dL Normal 31.4-36.0 [facility] Comment on above: Performed By: #### 2 [id number] #### [facility] [address] [place] [address] MCV (RBC) [Entitic vol] 94.5 fL Normal 80.0-100.0 [facility] Comment on above: Performed By: #### 2 [id number] #### [facility] [address] [place] [address] Monocytes (Bld) [#/Vol] 0.9 E9/L Normal 0.2-1.0 [facility] Comment on above: Performed By: #### 2 [id number] #### [facility] [address] [place] [address] Neutrophils (Bld) [#/Vol] 7.3 E9/L Normal 2.0-7.5 [facility] Comment on above: Performed By: #### 2 [id number] #### [facility] [address] [place] [address] Neutrophils/100 WBC (Bld) 73.1 % Normal 36.0-75.0 [facility] Comment on above: Performed By: #### 2 [id number] #### [facility] [address] [place] [address] Platelet 309.0 E9/L Normal 150.0-500. 0 [facility] Comment on above: Performed By: #### 2 [id number] #### [facility] [address] [place] [address] Platelet mean volume (Bld) [Entitic vol] 7.1 fL Normal 6.4-10.8 [facility] Comment on above: Performed By: #### 2 [id number] #### [facility] [address] [place] [address] RBC (Bld) [#/Vol] 2.7 E12/L Low 4.3-5.9 [facility] Comment on above: Performed By: #### 2 [id number] #### [facility] [address] [place] [address] WBC corrected for nucl RBC Auto (Bld) [#/Vol] 9.9 E9/L Normal 4.0-11.0 [facility] Comment on above: Performed By: #### 2 [id number] #### [facility] [address] [place] [address] CHEMISTRYOrdered By: Lab ROP User on 10-11-2023 Glucose [Mass/Vol] 108 mg/dL High 55 - 99 mg/dL [facility] POC Subsection Comment on above: Result Comment: Danny mayes RN/ POC Device SN [id number] Invalid Interpretation Code [facility] POC Subsection POC User ID [id number] 1 Invalid Interpretation Code [facility] POC Subsection POC Username JERED JIANG Invalid Interpretation Code [facility] POC Subsection CHEMISTRYOrdered By: SYSTEM SYSTEM on [...] 09-13 Glucose [Mass/Vol] 108 mg/dL High 55-99 [facility] Comment on above: Result Comment: Danny mayes RN/ Performed By: #### 2 [id number] #### [facility] [address] [place] [address] Consent for Anesthesiaon Consent for Anesthesia [id number] Normal [facility] HEMATOLOGYOrdered By: SYSTEM SYSTEM on 10-11-2023 [...] Insurance Correspondence Off ice10-11-2023 Insurance Correspondence Office [id number] Normal [facility] Interdisciplinary Note - Gregory e Manageron 10-11-2023 Interdisciplinary Note - Textile Chemist CRM spoke with patient and daughter in room. Patient is alert and oriented and participates in discharge planning. Patient white board updated, and CRM contact information provided. Discussed Dr Cordova will see patient today. She states Dr lemons was into see her today. Discussed [facility] had accepted and precert was obtained for dc today. Patient now asking if she can go to [facility] and not [facility]. Will need to see if they take her insurance and have any beds. If they cannot she will go to [facility]. She is asking to stay a couple days yet and discussed if medically ready for discharge she will need to [place]. Patient will need transport at [place]. Reviewed Medicare rights, she denies any questions. Gave her a copy of signed form. Correction to above sister August in room not daughter. Informed patient and sister [facility] does take her insurance and referral has been sent, waiting acceptance and will need a precert. And per Gen sx will stay today and work to wean oxygen. Normal [facility] Comment on above: Result Comment: Elec tronically Signed By: Jose E DICKINSON, Luanne\.br\Date and Time Signed: 10/11/23 10:26 EDT [facility] Documentson 0 10-11-2023 [facility] Documents [id number] Normal [facility] Magnesiumon 10-11-2023 Magnesium [Mass/Vol] 1.6 mg/dL Normal 1.3-2.4 [facility] Comment on above: Performed By: #### 2 [id number] #### [facility] [address] [place] [address] Monitor Recordon 10-11-2023 Monitor Record [id number]#[id number] Normal [facility] Monitor Record [id number]#[id number] Normal [facility] Phosphoruson 10-11-2023 Phosphate [Mass/Vol] 2.4 mg/dL Normal 1.9-4.6 [facility] Comment on above: Performed By: #### 2 857632 #### [facility] [address] [place] [address] Progress Note-Physicianon Progress Note-Physician Patient: CATHERINE ADAMSON [...] list: All Problems Smoker / SNOMED CT 377895096 / Confirmed Added secondary to documentation in Social History. Elevated ferritin level / SNOMED CT 024991524 / Confirmed Pleural effusion / SNOMED CT 42628460 / Confirmed Screen for colon cancer / SNOMED CT 266981076 / Confirmed Osteoarthritis / SNOMED CT 9101287400 / Confirmed LFT elevation / SNOMED CT 7126831606 / Confirmed Ischemic hepatitis / SNOMED CT 038125177 / Confirmed Hyponatremia / SNOMED CT 999413329 / Confirmed Hyperlipidemia / SNOMED CT 55596678 / Confirmed Essential hypertension / SNOMED CT 52579694 / Confirmed ASHD (arteriosclerotic heart disease) / SNOMED CT 91256505 / Confirmed COPD (chronic obstructive pulmonary disease) / SNOMED CT 37473489 / Confirmed COPD (chronic obstructive pulmonary disease) / SNOMED CT 74119684 / Confirmed At risk for falls / SNOMED CT 209390263 / Possible Problem added when Risk for Falls Careplan was initiated. 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 Arthroscopy and biopsy of knee (036197218). Tubal ligation (399983283). Social History Social & Psychosocial Habits Alcohol [...] adequate air exchange. Cardiovascular: Regular rhythm. Plan [place] [employer]esthesi[employer] (ASA) physical status classification: Class IV. Anesthetic Preoperative Plan: Anesthesia General. Normal [facility] Comment on above: Result Comment: Elec [...] ( From PACU to floor ). Normal [facility] Comment on above: Result Comment: Elec [...] 73.1 % Lymph Auto 13.0 % LOW Millard Auto 9.3 % Eos Auto 4.3 % Basophil Auto 0.3 % Neutro Absolute 7.3 E9/L Lymph Absolute 1.3 E9/L Millard Absolute 0.9 E9/L Eos Absolute 0.4 E9/L [...] % HI Lymph Auto 7.2 % LOW Millard Auto 8.6 % Eos Auto 0.2 % Basophil Auto 0.3 % Neutro Absolute 11.7 E9/L HI Lymph Absolute 1.0 E9/L Millard Absolute 1.2 E9/L HI Eos Absolute 0.0 [...] BID 10 days. Resume Plavix. . Normal [facility] Comment on above: Result Comment: Elec tronically Signed By: Chana Lemons DO\.maxx\Date and Time Signed: 10/11/23 07:11 EDT eGFRon 10-11-2023 eGFR 96 mL/min/1.73 m2 Normal >=59 [facility] Comment on above: Order Comment: Order added by Discern Expert. Performed By: #### 1 [id number] #### [facility] [address] [place] [address] BMPon 10-10-2023 Anion gap [Moles/Vol] 10 mmol/L Normal 6-16 [facility] Comment on above: Performed By: #### 2 237310 #### [facility] [address] [place] [address] Calcium [Mass/Vol] 8.1 mg/dL Low 8.9-11.1 [facility] Comment on above: Performed By: #### 2 962544 #### [facility] [address] [place] [address] Chloride [Moles/Vol] 103 mmol/L Normal 101-111 [facility] Comment on above: Performed By: #### 2 624580 #### [facility] [address] [place] [address] CO2 [Moles/Vol] 21 mmol/L Normal 21-31 [facility] Comment on above: Performed By: #### 2 447856 #### [facility] [address] [place] [address] Creatinine [Mass/Vol] 0.8 mg/dL Normal 0.5-1.3 [facility] Comment on above: Performed By: #### 2 843934 #### [facility] [address] [place] [address] Glucose [Mass/Vol] 146 mg/dL Normal 55-199 [facility] Comment on above: Performed By: #### 2 244469 #### [facility] [address] [place] [address] Potassium [Moles/Vol] 4.1 mmol/L Normal 3.5-5.3 [facility] Comment on above: Performed By: #### 2 209960 #### [facility] [address] [place] [address] Sodium [Moles/Vol] 130 mmol/L Low 135-145 [facility] Comment on above: Performed By: #### 2 815147 #### [facility] [address] [place] [address] Urea nitrogen [Mass/Vol] 35 mg/dL High 5-21 [facility] Comment on above: Performed By: #### 2 868302 #### [facility] [address] [place] [address] Urea nitrogen/Creatinine [Mass ratio] 44 No Units High 10-20 [facility] Comment on above: Performed By: #### 2 028294 #### [facility] [address] [place] [address] C Urineon 10-10-2023 Bacteria identified Cx Nom [...] Locations R1: This test was performed at: [facility], [address] [place] [address], [address] [facility], [facility] Comment on above: Performed By: #### 2 778038 #### [facility] [address] [place] [address] CBC w/ Auto Diffon 4 Basophils/100 WBC (Bld) 0.3 % Normal 0.0-2.0 [facility] Comment on above: Performed By: #### 2 373518 #### [facility] [address] [place] [address] Basophils/Leukocyte s Auto (Bld) [Pure # fraction] 0.0 E9/L Normal 0.0-0.2 [facility] Comment on above: Performed By: #### 2 997580 #### [facility] [address] [place] [address] Eosinophils (Bld) [#/Vol] 0.0 E9/L Normal 0.0-0.5 [facility] Comment on above: Performed By: #### 2 720578 #### [facility] [address] [place] [address] Eosinophils/100 WBC (Bld) 0.2 % Normal 0.0-8.0 [facility] Comment on above: Performed By: #### 2 800041 #### [facility] [address] [place] [address] Erythrocyte distribution width (RBC) [Ratio] 13.3 % Normal 10.9-14.2 [facility] Comment on above: Performed By: #### 2 136365 #### [facility] [address] [place] [address] Hematocrit (Bld) [Volume fraction] 33.2 % Low 34.0-46.0 [facility] Comment on above: Performed By: #### 2 103241 #### [facility] [address] [place] [address] Hemoglobin (Bld) [Mass/Vol] 11.2 g/dL Low 12.0-16.0 [facility] Comment on above: Performed By: #### 2 761135 #### [facility] [address] [place] [address] Lymphocytes (Bld) [#/Vol] 1.0 E9/L Normal 1.0-4.0 [facility] Comment on above: Performed By: #### 2 632096 #### [facility] [address] [place] [address] Lymphocytes/100 WBC (Bld) 7.2 % Low 14.0-50.0 [facility] Comment on above: Performed By: #### 2 529567 #### [facility] [address] [place] [address] MCH (RBC) [Entitic mass] 32.1 pg Normal 27.0-34.0 [facility] Comment on above: Performed By: #### 2 787120 #### [facility] [address] [place] [address] MCHC (RBC) [Mass/Vol] 33.7 g/dL Normal 31.4-36.0 [facility] Comment on above: Performed By: #### 2 458825 #### [facility] [address] [place] [address] MCV (RBC) [Entitic vol] 95.3 fL Normal 80.0-100.0 [facility] Comment on above: Performed By: #### 2 740425 #### [facility] [address] [place] [address] Monocytes (Bld) [#/Vol] 1.2 E9/L High 0.2-1.0 [facility] Comment on above: Performed By: #### 2 122686 #### [facility] [address] [place] [address] Neutrophils (Bld) [#/Vol] 11.7 E9/L High 2.0-7.5 [facility] Comment on above: Performed By: #### 2 757078 #### [facility] [address] [place] [address] Neutrophils/100 WBC (Bld) 83.7 % High 36.0-75.0 [facility] Comment on above: Performed By: #### 2 950134 #### [facility] [address] [place] [address] Platelet 442.0 E9/L Normal 150.0-500. 0 [facility] Comment on above: Performed By: #### 2 784361 #### [facility] [address] [place] [address] Platelet mean volume (Bld) [Entitic vol] 7.2 fL Normal 6.4-10.8 [facility] Comment on above: Performed By: #### 2 144632 #### [facility] [address] [place] [address] RBC (Bld) [#/Vol] 3.5 E12/L Low 4.3-5.9 [facility] Comment on above: Performed By: #### 2 060100 #### [facility] [address] [place] [address] WBC corrected for nucl RBC Auto (Bld) [#/Vol] 13.9 E9/L High 4.0-11.0 [facility] Comment on above: Performed By: #### 2 773000 #### [facility] [address] [place] [address] CHEMISTRYOrdered By: SYSTEM SYSTEM on 10-10-2023 Anion [...] ADAMSON; Caller Number: H Documentation per a procurement consultant in the medical record indicates this [...] judgment of the documented diagnoses by the procurement consultant, do you agree with the diagnosis? [___]Yes, I agree with the diagnosis documented by the procurement consultant. [___]No, I do not agree with the diagnosis documented by the procurement consultant. Reason: [___]Other: In responding to this [...] H I agree with diagnosis. Aubrey Mcguire [facility] HEMATOLOGYOrdered By: SYSTEM SYSTEM on 10-10-2023 [...] Insurance Correspondence Off ice10-10-2023 Insurance Correspondence Office [id number]#[id number] Normal [facility] Interdisciplinary Note - Gregory e Manageron 10-10-2023 Interdisciplinary Note - Textile Chemist CRM spoke with patient in room. Patient [...] w/c van or EMS to transport at ms. Reviewed Medicare rights, she denies any questions. Normal [facility] Comment on above: Result Comment: Elec [...] complete ADL functional transfers including sit Normal [facility] IntraOperative Documentson 0 10-10-2023 IntraOperative Documents [id number]#[id number] Normal [facility] Magnesiumon 10-10-2023 Magnesium [Mass/Vol] 1.7 mg/dL Normal 1.3-2.4 [facility] Comment on above: Performed By: #### 2 535550 #### [facility] [address] [place] [address] Main OR Intraoperative Recor don 10-10-2023 Main OR Intraoperative Record IntraOp Document Type FT Summary Primary Physician: Chana Lemons DO Finalized Date/Time: 10/10/23 09:43:20 Pt. Name: CATHERINE ADAMSON/Sex: 1960 Female Med Rec #: [id number] Physician: Art GARCIA, Regi Alvarez Financial #: [id number] Pt. Type: I Room/Bed: S320/01 Admit/Disch: 10/08/23 [...] Role Performed Surgeon - Primary Anesthesiologist of Special Shopper - Primary Record Time In 10/09/23 16:28:00 [...] Pati Singer Role Performed Scrub - Primary EXCELSIOR CUTTER Talent Consultant Time In 10/09/23 16:28:00 10/09/23 16:28:00 10/09/23 [...] Comments ASSISTING NEEDED Last Modified By: Ashley Zhnag 10/09/23 18:01:22 General Comments: PADDY GERBER AND [...] ACUTE FRA (more content not included)... Normal [facility] Operative Reporton Operative Report SURGERY DATE: [...] with the hand/wrist dangled off with assistant therapy aide. Large fluoroscopy with setup technician was utilized. Once the arm was [...] and plac (more content not included)... Normal [facility] Comment on above: Result Comment: Elec tronically Signed By: Chana Lemons DO T\.br\Date and Time Signed: 10/10/23 12:51 EDT Phosphoruson 10-10-2023 Phosphate [Mass/Vol] 3.1 mg/dL Normal 1.9-4.6 [facility] Comment on above: Performed By: #### 2 520423 #### [facility] [address] [place] [address] XR Hip 2-3 Views Righton XR Hip [...] mGy = 14.30 DAP = na Normal [facility] XR Wrist 2 Views Righton XR [...] mGy = 0.60 DAP = na Normal [facility] eGFRon 10-10-2023 eGFR 82 mL/min/1.73 m2 Normal >=59 [facility] Comment on above: Order Comment: Order added by Discern Expert. Performed By: #### 1 [id number] #### [facility] [address] [place] [address] BMPon 10-09-2023 Anion gap [Moles/Vol] 10 mmol/L Normal 6-16 [facility] Comment on above: Performed By: #### 2 123617 #### [facility] [address] [place] [address] Calcium [Mass/Vol] 8.3 mg/dL Low 8.9-11.1 [facility] Comment on above: Performed By: #### 2 807123 #### [facility] [address] [place] [address] Chloride [Moles/Vol] 105 mmol/L Normal 101-111 [facility] Comment on above: Performed By: #### 2 289378 #### [facility] [address] [place] [address] CO2 [Moles/Vol] 21 mmol/L Normal 21-31 [facility] Comment on above: Performed By: #### 2 970047 #### [facility] [address] [place] [address] Creatinine [Mass/Vol] 0.9 mg/dL Normal 0.5-1.3 [facility] Comment on above: Performed By: #### 2 945226 #### [facility] [address] [place] [address] Glucose [Mass/Vol] 96 mg/dL Normal 55-199 [facility] Comment on above: Performed By: #### 2 501492 #### [facility] [address] [place] [address] Potassium [Moles/Vol] 3.9 mmol/L Normal 3.5-5.3 [facility] Comment on above: Performed By: #### 2 065958 #### [facility] [address] [place] [address] Sodium [Moles/Vol] 132 mmol/L Low 135-145 [facility] Comment on above: Performed By: #### 2 672976 #### [facility] [address] [place] [address] Urea nitrogen [Mass/Vol] 33 mg/dL High 5-21 [facility] Comment on above: Performed By: #### 2 650631 #### [facility] [address] [place] [address] Urea nitrogen/Creatinine [Mass ratio] 37 No Units High 10-20 [facility] Comment on above: Performed By: #### 2 576632 #### [facility] [address] [place] [address] CBC w/ Auto Diffon 4 Basophils/100 WBC (Bld) 0.5 % Normal 0.0-2.0 [facility] Comment on above: Performed By: #### 2 515240 #### [facility] [address] [place] [address] Basophils/Leukocyte s Auto (Bld) [Pure # fraction] 0.1 E9/L Normal 0.0-0.2 [facility] Comment on above: Performed By: #### 2 139570 #### [facility] [address] [place] [address] Eosinophils (Bld) [#/Vol] 0.1 E9/L Normal 0.0-0.5 [facility] Comment on above: Performed By: #### 2 959531 #### [facility] [address] [place] [address] Eosinophils/100 WBC (Bld) 0.9 % Normal 0.0-8.0 [facility] Comment on above: Performed By: #### 2 303239 #### [facility] [address] [place] [address] Erythrocyte distribution width (RBC) [Ratio] 13.1 % Normal 10.9-14.2 [facility] Comment on above: Performed By: #### 2 047231 #### [facility] [address] [place] [address] Hematocrit (Bld) [Volume fraction] 31.9 % Low 34.0-46.0 [facility] Comment on above: Performed By: #### 2 102127 #### [facility] [address] [place] [address] Hemoglobin (Bld) [Mass/Vol] 10.8 g/dL Low 12.0-16.0 [facility] Comment on above: Performed By: #### 2 977778 #### [facility] [address] [place] [address] Lymphocytes (Bld) [#/Vol] 1.1 E9/L Normal 1.0-4.0 [facility] Comment on above: Performed By: #### 2 899846 #### [facility] [address] [place] [address] Lymphocytes/100 WBC (Bld) 10.5 % Low 14.0-50.0 [facility] Comment on above: Performed By: #### 2 666696 #### [facility] [address] [place] [address] MCH (RBC) [Entitic mass] 32.1 pg Normal 27.0-34.0 [facility] Comment on above: Performed By: #### 2 125634 #### [facility] [address] [place] [address] MCHC (RBC) [Mass/Vol] 33.8 g/dL Normal 31.4-36.0 [facility] Comment on above: Performed By: #### 2 062645 #### [facility] [address] [place] [address] MCV (RBC) [Entitic vol] 94.9 fL Normal 80.0-100.0 [facility] Comment on above: Performed By: #### 2 409289 #### [facility] [address] [place] [address] Monocytes (Bld) [#/Vol] 1.0 E9/L Normal 0.2-1.0 [facility] Comment on above: Performed By: #### 2 694438 #### [facility] [address] [place] [address] Neutrophils (Bld) [#/Vol] 8.5 E9/L High 2.0-7.5 [facility] Comment on above: Performed By: #### 2 713752 #### [facility] [address] [place] [address] Neutrophils/100 WBC (Bld) 78.8 % High 36.0-75.0 [facility] Comment on above: Performed By: #### 2 768401 #### [facility] [address] [place] [address] Platelet mean volume (Bld) [Entitic vol] 7.1 fL Normal 6.4-10.8 [facility] Comment on above: Performed By: #### 2 593616 #### [facility] [address] [place] [address] Platelets (Bld) [#/Vol] 408.0 E9/L Normal 150.0-500. 0 [facility] Comment on above: Performed By: #### 2 274526 #### [facility] [address] [place] [address] RBC (Bld) [#/Vol] 3.4 E12/L Low 4.3-5.9 [facility] Comment on above: Performed By: #### 2 438986 #### [facility] [address] [place] [address] WBC corrected for nucl RBC Auto (Bld) [#/Vol] 10.8 E9/L Normal 4.0-11.0 [facility] Comment on above: Performed By: #### 2 492467 #### [facility] [address] [place] [address] CHEMISTRYOrdered By: SYSTEM SYSTEM on 10-09-2023 Ethanol Lvl mg/dL Normal <=11mg/dL Remisol Chem Consent for Procedure/Surger yon 10-09-2023 Consent for Procedure/Surgery [id number]#1.00TIFF Normal [facility] EMS Documentationon 10-09-19 24 EMS Documentation Please click on link to see report Normal [facility] Comment on above: Result Comment: Miss ing Attachment - total size limit for all attachments exceeded [email or web address] Can be viewed in source system Ethanolon 10-09-2023 Ethanol Lvl <10 Normal <=11 [facility] Comment on above: Performed By: #### 2 388870 #### [facility] [address] [place] [address] Inpatient Clinical Summaryon 10-09-2023 Inpatient Clinical Summary [address] [address] Clinical Summary Person Information: Name: CATHERINE ADAMSON Age: 63 Years : 1960 Sex: Female PCP: XIMENA ASTUDILLO MD Marital Status: Race: White Ethnicity: Non- or Language: Micronesian Visit Id: Visit Reason: Leg pain-swelling; Hip pain-swelling; Dizziness; Fall; FALL Speciality: Acuity: Enc Type: Inpatient Med Service: Medical Arrival: 10/08/2023 11:57:18 Discharge: Dispo Type: Admitted as IP to this Hosp Address: Mary[address] [id number] Provider Notes: Diagnosis: Alcohol abuse; Colles' fracture; [...] every day. nitroglycerin potassium chloride (Potassium Chloride (Xrk-Lwne-Bvh 10)) By Mouth 2 times a day. sodium chloride (Sodium Chloride) Care Team Members: Attending Physician: Aubrey Swift PA-C Consulting Physician: Referring Physician: Follow up: With: Address: When: Chana Lemons [address] [place], [place] [id number] Business (1) Comments: Call for followup appointment 4 weeks. With: Address: When: XIMENA ASTUDILLO [address] [place], [place] [phone] Business (1) Patient Education Information: Normal [facility] Inpatient Patient Summaryon 10-09-2023 Inpatient Patient Summary [address] [address] [facility] Clinical Discharge Instructions PERSON INFORMATION Name: CATHERINE ADAMSON PHYSICIANS Admitting Physician: Art GARCIA, Regi Alvarez Attending Physician: Regi Cordova MD PCP: XIMENA ASTUDILLO MD Discharge Diagnosis: Alcohol abuse; Colles' fracture; Hip fracture, right; Pancreatitis, acute; Rhabdomyolysis Comment: PATIENT EDUCATION INFORMATION Instructions: Medication Leaflets: Follow up: With: Address: When: Chana Lemons [address] [place] [address] Business (1) Comments: Call for followup appointment 2-3 weeks for staple removal right hip and recheck right wrist and hip. With: Address: When: XIMENA BUADILIO [address] [place] [address] Business (1) MEDICATION LIST Medications to [...] every day. nitroglycerin potassium chloride (Potassium Chloride (Hpv-Tnyv-Rdp 10)) By Mouth 2 times a day. sodium chloride (Sodium Chloride) No Longer Take the Following Medications hydrochlorothiazide-lisinopril (hydrochlorothiazide-lisinopri l 12.5 mg-20 mg Tab) By Mouth every day. magnesium sulfate/potass Cl/sodium sulf (Sutab oral tablet) Please follow instructions per packaging and physician's handout. Refills: 0., Ordered as indicated per Dr. Hernandez. tramadol (traMADOL 50 mg Tab) By Mouth every 6 hours. Comment: Normal [facility] Inpatient Patient Summary [place] [id number] Patient Discharge Instructions PERSON INFORMATION Name: CATHERINE [...] Follow up: With: Address: When: Chana Lemons [address] [place], [place] [phone] Business (1) Comments: Call for followup appointment 4 weeks. With: Address: When: XIMENA ASTUDILLO [address] [place] [address] Business (1) In the event that this [...] Dose: Next Dose: potassium chloride (Potassium Chloride (Vhh-Utwz-Flo 10)) By Mouth 2 times a day. [...] every day. nitroglycerin potassium chloride (Potassium Chloride (Iat-Zasd-Loe 10)) By Mouth 2 maisha (more content not included)... Normal [facility] Insurance Correspondence Off 10-09-2023 Insurance Correspondence Office [id number]#1.00TIFF [facility] Insurance Correspondence Office [id number]#1.00TIFF [facility] Interdisciplinary Note - Gregory e Manageron 10-09-2023 Interdisciplinary Note - Textile Chemist CRM spoke with patient, daughter and sisters [...] Discussed local SNF choices and she prefers [facility] followed by [facility]. Will need a precert. Anticipated dc in 2-3 days. Patient does admit to daily RTOH use and certified social workers in health care will see today. Reviewed Medicare rights, she [...] and use her home supply at SNF. [facility] Comment on above: Result Comment: Elec tronically Signed By: Jose E DICKINSON, Luanne\.br\Date and Time Signed: 10/09/23 14:07 EDT Interdisciplinary Note - Soc ial Workeron 10-09-2023 Interdisciplinary Note - Recapper This SW responded to a consult on [...] time. SW will remain available as needed. [facility] Interdisciplinary Note - Recapper This SW responded to a consult on [address] [place] [address] regarding ETOH / Substance abuse. Patient stated [...] SW will remain available as needed. Normal [facility] Magnesiumon 10-09-2023 Magnesium [Mass/Vol] 1.7 mg/dL Normal 1.3-2.4 [facility] Comment on above: Performed By: #### 2 102193 #### [facility] [address] [place] [address] Main OR Intraoperative Recor don 10-09-2023 Main OR Intraoperative Record IntraOp Document Type FT Summary Primary Physician: Chana Lemons DO Finalized Date/Time: 10/09/23 18:09:03 Pt. Name: CATHERINE ADAMSON/Sex: 1960 Female Med Rec #: [id number] Physician: Art GARCIA, Regi Alvarez Financial #: [id number] Pt. Type: I Room/Bed: Admit/Disch: 10/08/23 11:57:18 [...] Role Performed Surgeon - Primary Anesthesiologist of Special Shopper - Primary Record Time In 10/09/23 16:28:00 [...] Pati Singer Role Performed Scrub - Primary EXCELSIOR CUTTER Talent Consultant Time In 10/09/23 16:28:00 10/09/23 16:28:00 10/09/23 [...] General Comments: PADDY GERBER AND ARETHA MURDOCK, ARTHJOSHAU IN ATTENDANCE.ANU CHAVEZ. Perioperative Protocols FT Pre-Care [...] Time Out Chana Lemons DO, Given Participants [facility] , Gary Beard, Ashley Zhang, Zaira [...] AND UL (more content not included)... Normal [facility] Main OR PACU I Recordon 09-12 Main OR PACU I Record PACU Phase I Document Type FT Summary Primary Physician: Chana Lemons DO Finalized Date/Time: 10/09/23 19:01:13 Pt. Name: CATHERINE ADAMSON/Sex: 1960 Female Med Rec #: [id number] Physician: Art GARCIA, Regi Alvarez Financial #: [id number] Pt. Type: I Room/Bed: [place] [address] Admit/Disch: 10/08/23 11:57:18 - Institution: Case Times [...] Signed By: Sara Son RN 10/09/23 19:01 [facility] Message from Medicareon 09-12 Message from Medicare [id number]#[id number] Normal [facility] Monitor Recordon 10-09-2023 Monitor Record [id number]#[id number] Normal [facility] Monitor Record [id number]#[id number] [facility] Operative Reporton Operative Report Patient: KRYSTLE ADAMSON [...] % HI Lymph Auto 10.5 % LOW Millard Auto 9.3 % Eos Auto 0.9 % Basophil Auto 0.5 % Neutro Absolute 8.5 E9/L HI Lymph Absolute 1.1 E9/L Millard Absolute 1.0 E9/L Eos Absolute 0.1 E9/L [...] POSITIVE UA Spec Desc Frankel UA Color [place] UA Clarity Ex.Turbid UA Spec Grav 1.018 [...] Glucose Cap 95 mg/dL POC Device SN [id number] POC User ID [id number] POC Username POC Username 10/08/2023 12:00 EDT WBC 16.6 E9/L HI RBC 3.8 E12/L LOW HGB 12.1 gm/dL Hct 36.5 % MCV 95.3 fL MCH 31.6 pg MCHC 33.2 gm/dL RDW 13.0 % Platelet 509.0 E9/L HI MPV 7.4 fL Neutro Auto 87.1 % HI Lymph Auto 5.5 % LOW Millard Auto 7.2 % Eos Auto 0.0 % Basophil Auto 0.2 % Neutro Absolute 14.4 E9/L HI Lymph Absolute 0.9 E9/L LOW Millard Absolute 1.2 E9/L HI Eos Absolute 0.0 [...] Room in stable and satisfactory condition.. Normal [facility] Comment on above: Result Comment: Elec tronically Signed By: Chana Lemons DO\.br\Date and Time Signed: 10/09/23 18:20 EDT Outpatient Surgery Discharge Instructionon 10-09-2023 Outpatient Surgery Discharge Instruction [place] [id number] Patient Discharge Instructions PERSON INFORMATION Name: CATHERINE [...] 50% partial weight right hip 4 weeks. [place] out right hip 2-3 weeks. No weight [...] Follow up: With: Address: When: Chana Lemons [address] [place] [id number] Business (1) Comments: Call for followup appointment 2-3 weeks for staple removal right hip and recheck right wrist and hip. With: Address: When: XIMENA ASTUDILLO [address] [place] [phone] Business (1) Pharmacy Information: You may receive a survey from [employer] asking you to rate your care experience. Your feedback is important and will help us understand what we do well and how we can improve the quality of care we provide to you, your loved ones and our community. It?s an honor to serve you. Thank you for choosing [facility] HERE ARE THE MEDICATION CHANGES THAT OCCURRED [...] every day. nitroglycerin potassium chloride (Potassium Chloride (Mjq-Dgcp-Iqn 10)) By Mouth 2 times a day. [...] PATIENT EDUCATION INFORMATION Instructions: Medication Leaflets: Normal [facility] Patient Education - Texton 0 10-09-2023 Patient Education - Text Normal [facility] Patient Education - Text [facility] Phosphoruson 10-09-2023 Phosphate [Mass/Vol] 3.1 mg/dL Normal 1.9-4.6 [facility] Comment on above: Performed By: #### 2 [id number] #### [facility] [address] [place] [address] Progress Note-Nurseon 2023 Progress Note-Nurse Patient returned [...] given while order was still active. Normal [facility] Progress Note-Physicianon Progress Note-Physician Patient: CATHERINE [...] Allergic Reactions (All) No Known Allergies Normal [facility] Comment on above: Result Comment: Elec tronically Signed By: Chana Lemons DO\.br\Date and Time Signed: 10/09/23 06:35 EDT eGFRon 10-09-2023 eGFR 71 mL/min/1.73 m2 Normal >=59 [facility] Comment on above: Order Comment: Order added by Discern Expert. Performed By: #### 1 [id number] ####[facility] [address] [place] [address] ABO/Rhon 10-08-2023 ABO/Rh Positive Invalid Interpretation Code [facility] Comment on above: Performed By: #### 2 [id number] #### [facility] [address] [place] [address] ABO/Rh History Checkon 10-07 ABO/Rh History Check Type verified by second s Normal [facility] Comment on above: Performed By: #### 1 [id number] #### [facility] [address] [place] [address] ABO/Rh Retypeon 10-08-2023 ABO/Rh Retype Interp Positive Invalid Interpretation Code [facility] Comment on above: Order Comment: pt in CT [id number] 10/08/2023 12:37:24 EDT Performed By: #### 1 [id number] #### [facility] [address] [place] [address] ABSCon 10-08-2023 ABSC Gel Interp Negative Normal [facility] Comment on above: Performed By: #### 1 [id number] #### [facility] [address] [place] [address] AMIKACIN:SUSC:PT:ISOLATE:ORD QN:MICOrdered By: Vonnie Jauregui on 10-08-2023 Amikacin YUNI [Susc] >100,000 cfu/ml Citr obacter farmeri [facility] Amikacin YUNI [Susc]Ordered B y: Vonnie Jauregui on 10-08-2023 Citrobacter farmeri Citrobacter farmeri [facility] BLOOD BANKOrdered By: Nichelle Shoemaker on 10-08-2023 ABO/Rh Retype Interp Positive Invalid Interpretation Code [facility] BB Subsection ABO/Rh Interp Positive Invalid Interpretation Code [facility] BB Subsection ABSC Gel Interp Negative (10/08/23 12:13 PM) Normal [facility] BB Subsection BMPon 10-08-2023 Anion gap [Moles/Vol] 16 mmol/L Normal 6-16 [facility] Comment on above: Performed By: #### 2 [id number] #### [facility] [address] [place] [address] Calcium [Mass/Vol] 8.2 mg/dL Low 8.9-11.1 [facility] Comment on above: Performed By: #### 2 [id number] #### [facility] [address] [place] [address] Chloride [Moles/Vol] 105 mmol/L Normal 101-111 [facility] Comment on above: Performed By: #### 2 [id number] #### [facility] [address] [place] [address] CO2 [Moles/Vol] 20 mmol/L Low 21-31 [facility] Comment on above: Performed By: #### 2 [id number] #### [facility] [address] [place] [address] Creatinine [Mass/Vol] 0.6 mg/dL Normal 0.5-1.3 [facility] Comment on above: Performed By: #### 2 205803 #### [facility] [address] [place] [address] Glucose [Mass/Vol] 108 mg/dL Normal 55-199 [facility] Comment on above: Performed By: #### 2 [id number] #### [facility] [address] [place] [address] Potassium [Moles/Vol] 3.5 mmol/L Normal 3.5-5.3 [facility] Comment on above: Performed By: #### 2 684443 #### [facility] [address] [place] [address] Sodium [Moles/Vol] 137 mmol/L Normal 135-145 [facility] Comment on above: Performed By: #### 2 826333 #### [facility] [address] [place] [address] Urea nitrogen [Mass/Vol] 25 mg/dL High 5-21 [facility] Comment on above: Performed By: #### 2 915181 #### [facility] [address] [place] [address] Urea nitrogen/Creatinine [Mass ratio] 42 No Units High 10-20 [facility] Comment on above: Performed By: #### 2 [id number] #### [facility] [address] [place] [address] Blood Bank ID#on 10-08-2023 BBID# [id number] Invalid Interpretation Code [facility] Comment on above: Performed By: #### 1 [id number] #### [facility] [address] [place] [address] CBC w/ Auto Diffon 4 Basophils/100 WBC (Bld) 0.2 % Normal 0.0-2.0 [facility] Comment on above: Performed By: #### 2 [id number] #### [facility] [address] [place] [address] Basophils/Leukocyte s Auto (Bld) [Pure # fraction] 0.0 E9/L Normal 0.0-0.2 [facility] Comment on above: Performed By: #### 2 297401 #### [facility] [address] [place] [address] Eosinophils (Bld) [#/Vol] 0.0 E9/L Normal 0.0-0.5 [facility] Comment on above: Performed By: #### 2 753126 #### [facility] [address] [place] [address] Eosinophils/100 WBC (Bld) 0.0 % Normal 0.0-8.0 [facility] Comment on above: Performed By: #### 2 958155 #### [facility] [address] [place] [address] Erythrocyte distribution width (RBC) [Ratio] 13.0 % Normal 10.9-14.2 [facility] Comment on above: Performed By: #### 2 [id number] #### [facility] [address] [place] [address] Hematocrit (Bld) [Volume fraction] 36.5 % Normal 34.0-46.0 [facility] Comment on above: Performed By: #### 2 885212 #### [facility] [address] [place] [address] Hemoglobin (Bld) [Mass/Vol] 12.1 g/dL Normal 12.0-16.0 [facility] Comment on above: Performed By: #### 2 [id number] #### [facility] [address] [place] [address] Lymphocytes (Bld) [#/Vol] 0.9 E9/L Low 1.0-4.0 [facility] Comment on above: Performed By: #### 2 867143 #### [facility] [address] [place] [address] Lymphocytes/100 WBC (Bld) 5.5 % Low 14.0-50.0 [facility] Comment on above: Performed By: #### 2 375739 #### [facility] [address] [place] [address] MCH (RBC) [Entitic mass] 31.6 pg Normal 27.0-34.0 [facility] Comment on above: Performed By: #### 2 [id number] #### [facility] [address] [place] [address] MCHC (RBC) [Mass/Vol] 33.2 g/dL Normal 31.4-36.0 [facility] Comment on above: Performed By: #### 2 549001 #### [facility] [address] [place] [address] MCV (RBC) [Entitic vol] 95.3 fL Normal 80.0-100.0 [facility] Comment on above: Performed By: #### 2 701372 #### [facility] [address] [place] [address] Monocytes (Bld) [#/Vol] 1.2 E9/L High 0.2-1.0 [facility] Comment on above: Performed By: #### 2 [id number] #### [facility] [address] [place] [address] Neutrophils (Bld) [#/Vol] 14.4 E9/L High 2.0-7.5 [facility] Comment on above: Performed By: #### 2 742124 #### [facility] [address] [place] [address] Neutrophils/100 WBC (Bld) 87.1 % High 36.0-75.0 [facility] Comment on above: Performed By: #### 2 167421 #### [facility] [address] [place] [address] Platelet mean volume (Bld) [Entitic vol] 7.4 fL Normal 6.4-10.8 [facility] Comment on above: Performed By: #### 2 136573 #### [facility] [address] [place] [address] Platelets (Bld) [#/Vol] 509.0 E9/L High 150.0-500. 0 [facility] Comment on above: Performed By: #### 2 [id number] #### [facility] [address] [place] [address] RBC (Bld) [#/Vol] 3.8 E12/L Low 4.3-5.9 [facility] Comment on above: Performed By: #### 2 551500 #### [facility] [address] [place] [address] RBC size Nom (Bld) NORMAL Invalid Interpretation Code [facility] Comment on above: Performed By: #### 2 520872 #### [facility] [address] [place] [address] Toxic granules LM Ql (Bld) PRESENT Invalid Interpretation Code [facility] Comment on above: Performed By: #### 2 576162 #### [facility] [address] [place] [address] WBC corrected for nucl RBC Auto (Bld) [#/Vol] 16.6 E9/L High 4.0-11.0 [facility] Comment on above: Performed By: #### 2 101380 #### [facility] [address] [place] [address] CHEMISTRYOrdered By: SYSTEM SYSTEM on 10-08-2023 Amphetamines [...] Alternate Method Called to Anna sam by [id number] Interpretive Data: N egative Cutoff: <50 ng/mL [...] Called to Anna Sam In ER by [id number] No Confirmation Requested by Physician Unconfirmed by [...] Sensitivity Troponin I Instructions For Use, Graciela Unity, December 2017) CHEMISTRYOrdered By: Lab ROP User on 10-08-2023 Glucose [Mass/Vol] 95 mg/dL Normal 55 - 99 mg/dL [facility] POC Subsection Comment on above: Result Comment: Katie farhan Meter POC Device SN [id number] Invalid Interpretation Code [facility] POC Subsection POC User ID [id number] Invalid Interpretation Code [facility] POC Subsection POC Username JOSE ADAMS Invalid Interpretation Code [facility] POC Subsection CKon 10-08-2023 Total CK 442 Int._Unit/L Abnormal 14-261 [facility] Comment on above: Result Comment: Crit ical Result Verified by Repeat Analysis Critical Result [id number] Called to and read back by: ADOLFO PUTNAM at: 10/08/2023 13:08:23 by:ROSEMARIE Performed By: #### 2 [id number] #### [facility] [address] [place] [address] COAGULATIONOrdered By: Brissa Dacosta on 10-08-2023 aPTT Coag (PPP) [Time] 47.8 s High 25.1 - 36.5 second(s) [facility] Auto Coag Comment on above: Interpretive Data: [...] the same coagulation reagent and instrumentation as [facility]. Currently there are no coagulation studies available worldwide for children to 14 days, and no normal ranges. Heparin therapeutic range (represented by Anti-Factor Xa activity of 0.2 - 0.4 U/mL) corresponds to PTT of 56.6 - 109.0 sec. INR Coag (PPP) [Relative time] 1.10 {INR} Invalid Interpretation Code [facility] Auto Coag Comment on above: Interpretive Data: I NR results are specifically intended to assess patients stabilized on long-term Anticoagulation therapy suggested INR s Less Intensive Anticoagulation 2.0 3.0 Conventional Range 3.0 4.5 PT Coag (PPP) [Time] 12.3 s Normal 9.4 - 12.5 second(s) [facility] Auto Coag Comment on above: Interpretive Data: [...] the same coagulation reagent and instrumentation as [facility]. Currently there are no coagulation studies available [...] contrast amount in ml's: 0 Normal [facility] CT Chest w/o Contraston 05-2 CT Chest [...] DO Transcribed by: RICHARD Technologist: ANGELES Mcguire [facility] CT Head or Brain w/o Contras [...] DO Transcribed by: RICHARD Technologist: ANGELES Mcguire [facility] CT Spine Cervical w/o Contra ston [...] DO Transcribed by: RICHARD Technologist: ANGELES Mcguire [facility] Capillary Glucose POCon 09-12 Glucose [Mass/Vol] 95 mg/dL Normal 55-99 [facility] Comment on above: Result Comment: Katie real Meter Performed By: #### 2 [id number] #### [facility] [address] [place] [address] Consent for Treatmenton 09-12 Consent for Treatment [id number]#1.00TIFF Normal [facility] ED Clinical Summaryon 2023 ED Clinical Summary (Inserted Image. Patricia ble to display) [address] [address] ED Clinical Summary Person Information Name: CATHERINE ADAMSON[place] Age: 63 Years : 1960 Sex: Female Language: Micronesian PCP: XIMENA ASTUDILLO MD Marital Status: Visit Id: Visit Reason: Leg pain-swelling; Hip pain-swelling; Dizziness; Fall; FALL Speciality: Acuity: 2 Enc Type: Inpatient Med Service: Emergency Arrival: 10/08/2023 11:57:18 Discharge: LOS: 000 06:15 Checkin: 10/08/2023 11:57:18 Checkout: 10/08/2023 18:12:00 Dispo Type: Admitted as IP to this [facility] EVENTS: Event Name Event Status Request Date/Time [...] 17:09:41 Patient Care Request 10/08/2023 17:46:12 ADDRESS: [address] [place] [id number] PHYS DOC NOTES: Addendum by Richardson (more content not included)... Normal [facility] ED Note-Physicianon 10-08-19 24 ED Note-Physician [...] or rigidity noted. 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 It does metal turner that the patient drinks at least [...] EDT, S (more content not included)... Normal [facility] Comment on above: Result Comment: Elec [...] or rigidity noted. 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 It does metal turner that the patient drinks at least 6 drinks of alcohol per day. Assessment/Plan Alcohol abuse (F10.10: Alcohol abuse, uncomplicated) Colles' fracture (S52.016X: Colles' fracture of unspecified radius, initial encounter for closed fracture) Hip fracture, right (S72.001A: Fracture of unspecified part of neck of right femur, initial encounter for closed fracture) Pancreatitis, acute (K85.90: Acute pancreatitis without necrosis or infection, unspecified) Rhabdomyolysis (M62.82: Rhabdomyolysis) Orders: morphine, 4 mg = 2 mL, Injection, IV Push, Once, Stop date 10/08/23 12:02:00 EDT, S (more content not included)... Normal [facility] Comment on above: Result Comment: Elec tronically Signed By: Rigo Anderson DO\.br\Date and Time Signed: 10/08/23 14:31 EDT ED Patient Education Noteon 10-08-2023 ED Patient Education Note Normal [facility] ED Patient Summaryon 024 ED Patient Summary (Inserted Image. Patricia ble to display) [place] [id number] Patient Discharge Instructions Person Information Name: CATHERINE ADAMSON Age: 63 Years Arrival Date: 10/08/2023 11:57:18 Discharge Diagnosis: Alcohol abuse; Colles' fracture; Hip fracture, right; Pancreatitis, acute; Rhabdomyolysis Primary Care Physician: XIMENA ASTUDILLO MD Provider Information Primary Provider: Rigo Anderson DO [employer] Professor:None The exam and treatment you received in the Emergency Department were for an urgent problem and are not intended as complete care. It is important that you follow up with a doctor, nurse practitioner, or physician?s assistant therapy aide for ongoing care. If your symptoms become [...] opioids can be used to help relieve wmnfdwci-sb-ngdzrh pain and are often prescribed following a [...] be struggling with addiction, tell your health adult day care worker and ask for guidance or call [facility]?S National Helpline at 5-457-111-YBLG. u Source: [place] Department of Health and Human Services/Center for Disease Control & Prevention [facility] (more content not included)... Normal [facility] Ethanolon 10-08-2023 Ethanol Lvl <10 Normal <=11 [facility] Comment on above: Performed By: #### 2 [id number] #### [facility] [address] [place] [address] HEMATOLOGYOrdered By: SYSTEM SYSTEM on 10-08-2023 RBC size Nom (Bld) NORMAL *NA* (10/08/23 12:00 PM) Invalid Interpretation Code Remisol Heme Toxic granules LM Ql (Bld) PRESENT *NA* (10/08/23 12:00 PM) Invalid Interpretation Code Rem[facility] Heme Hep Func PanelOrdered By: Monthlys SYSTEM on 10-08-2023 Albumin [Mass/Vol] 2.9 g/dL Low 3.3 - 5.0 gm/dL Remisol Chem Comment on above: Performed By: #### 2 [id number] #### [facility] [address] [place] [address] Bilirubin [Mass/Vol] 0.6 mg/dL Normal 0.0 - 1.1 mg/dL Rem[facility] Chem Comment on above: Performed By: #### 2 804386 #### [facility] [address] [place] [address] Bilirubin.direct [Mass/Vol] 0.2 mg/dL Normal 0.0 - 0.4 mg/dL Rem[facility] Chem Comment on above: Performed By: #### 2 [id number] #### [facility] [address] [place] [address] Bilirubin.indirect [Mass or moles/Vol] 0.4 mg/dL Normal 0.1 - 0.9 mg/dL Remisol Chem Comment on above: Performed By: #### 2 524322 #### [facility] [address] [place] [address] Globulin (S) [Mass/Vol] 3.0 g/dL Normal 1.4 - 4.0 gm/dL Remisol Chem Comment on above: Performed By: #### 2 867327 #### [facility] [address] [place] [address] Protein [Mass/Vol] 5.9 g/dL Low 6.0 - 7.8 gm/dL Remisol Chem Comment on above: Performed By: #### 2 369474 #### [facility] [address] [place] [address] Hep Func Panelon 10-08-2023 Albumin/Globulin (S) [Mass conc ratio] 1.0 Low 1.1-2.2 [facility] Comment on above: Performed By: #### 2 [id number] #### [facility] [address] [place] [address] ALP [Catalytic activity/Vol] 106 Int._Unit/L High 21-98 [facility] Comment on above: Performed By: #### 2 986782 #### [facility] [address] [place] [address] ALT No additional P-5'-P [Catalytic activity/Vol] 35 Int._Unit/L Normal 6-46 [facility] Comment on above: Performed By: #### 2 712548 #### [facility] [address] [place] [address] AST [Catalytic activity/Vol] 65 Int._Unit/L High 5-43 [facility] Comment on above: Performed By: #### 2 124386 #### [facility] [address] [place] [address] Lactic AcidOrdered By: [employer] on 10-08-2023 Lactic Acid Lvl 1.9 mmol/L Normal 0.5 - 2.2 mmol/L Remisol Chem Comment on above: Performed By: #### 2 [id number] #### [facility] [address] [place] [address] Lipase LevelOrdered By: SYST EM SYSTEM on 10-08-2023 Lipase [Catalytic activity/Vol] 256 U/L High 13 - 58 unit/L Remisol Chem Comment on above: Performed By: #### 2 895877 #### [facility] [address] [place] [address] Magnesiumon 10-08-2023 Magnesium [Mass/Vol] 1.8 mg/dL Normal 1.3-2.4 [facility] Comment on above: Performed By: #### 2 065108 #### [facility] [address] [place] [address] Monitor Recordon 10-08-2023 Monitor Record [id number]#1.00TIFF Normal [facility] Monitor Record [id number]#1.00TIFF Normal [facility] No Panel InformationOrdered By: ANGPROCESSSERVER MICROBIOLOGY on 10-08-2023 Blood Culture Charcoal No growth at 4 days. Final to follow at 7 days. [facility] Blood Culture Charcoal No growth at 4 days. Final to follow at 7 days. [facility] PT & PTTon 10-08-2023 aPTT Coag (PPP) [Time] 47.8 second(s) High 25.1-36.5 [facility] Comment on above: Result Comment: Para [...] the same coagulation reagent and instrumentation as [facility]. Currently there are no coagulation studies available worldwide for children to 14 days, and no normal ranges. Heparin therapeutic range (represented by Anti-Factor Xa activity of 0.2 - 0.4 U/mL) corresponds to PTT of 56.6 - 109.0 sec. Performed By: #### 1 [id number] #### [facility] [address] [place] [address] INR Coag (PPP) [Relative time] 1.10 {INR} Invalid Interpretation Code [facility] Comment on above: Result Comment: INR results are specifically intended to assess patients stabilized on long-term Anticoagulation therapy suggested INR?s ?Less Intensive Anticoagulation? 2.0 ? 3.0 Conventional Range 3.0 ? 4.5 Performed By: #### 1 [id number] #### [facility] [address] [place] [address] PT Coag (PPP) [Time] 12.3 second(s) Normal 9.4-12.5 [facility] Comment on above: Result Comment: 15 [...] the same coagulation reagent and instrumentation as [facility]. Currently there are no coagulation studies available worldwide for children to 14 days, and no normal ranges. Performed By: #### 1 [id number] #### [facility] [address] [place] [address] Pre-Arrival Noteon 4 Pre-Arrival Note Pre-Arrival Summary Name: , [facility] Current Date: 10/08/2023 11:57:48 EDT Gender: Female Date of : Age: 63 Pre-Arrival Type: EMS ETA: 10/08/2023 12:18:00 EDT Primary Care Physician: Presenting Problem: fell , R hip injury Pre-Arrival User: Jayla Sharp RN Referring Source: Location: Completion Date/Time: 10/08/2023 11:49:00 [facility] Pre-Hospital Report Form Vital Signs: 160/64; 125; 94% on 4L Pre-Hospital Report: pt fell on , found today. R hip injury, + anticoags. A/Ox3. Treatment in Route: 18 L AC Response to Treatment: Misc. Issues: Normal [facility] Troponinon 10-08-2023 Troponin 26.70 pg/mL Normal 10.10-27.1 0 [facility] Comment on above: Result Comment: The 95% CI (Confidence Interval) PPV (Positive Predictive Value) for myocardial infarction in females is 38 pg/mL, in males 51 pg/mL. The results should be used in conjunction with clinical conditions of myocardial infarction. (Access High Sensitivity Troponin I Instructions For Use, Graciela Desean, December 2017) Performed By: #### 2 [id number] #### [facility] [address] [place] [address] U Drug Screenon 10-08-2023 Amphetamines Screen method >1000 ng/mL Ql (U) Negative Normal NEGATIVE [facility] [facility] Comment on above: Result Comment: Nega tive Cutoff: <1000 ng/mL Performed By: #### 2 [id number] #### [facility] [address] [place] [address] Barbiturates Screen Ql (U) Negative Normal NEGATIVE [facility] Comment on above: Result Comment: Nega tive Cutoff: <200 ng/mL Performed By: #### 2 [id number] #### [facility] [address] [place] [address] Benzodiazepines Ql (U) Negative Normal NEGATIVE [facility] Comment on above: Result Comment: Nega tive Cutoff: <200 ng/mL Performed By: #### 2 [id number] #### [facility] [address] [place] [address] Cannabinoids Screen Ql (U) Positive Abnormal NEGATIVE [facility] Comment on above: Result Comment: Crit ical Result Verified by Repeat Analysis No Confirmation Requested by Physician Unconfirmed by an Alternate Method Called to Anna sam by [id number] Negative Cutoff: <50 ng/mL Performed By: #### 2 [id number] #### [facility] [address] [place] [address] Cocaine Ql (U) Negative Normal NEGATIVE [facility] Comment on above: Result Comment: Nega tive Cutoff: <300 ng/mL Performed By: #### 2 [id number] #### [facility] [address] [place] [address] Opiates Screen Ql (U) Positive Abnormal NEGATIVE [facility] Comment on above: Result Comment: Crit ical Result Verified by Repeat Analysis Called to Anna Sam In ER by [id number] No Confirmation Requested by Physician Unconfirmed by an Alternate Method Negative Cutoff: <300 ng/mL Performed By: #### 2 [id number] #### [facility] [address] [place] [address] Phencyclidine Screen method >25 ng/mL Ql (U) Negative Normal NEGATIVE [facility] Comment on above: Result Comment: Nega tive Cutoff: <25 ng/mL These drug screen results are to be used for medical (i.e., treatment) purposes only. Unconfirmed drug screening results must not be used for non-medical purposes (e.g., employment testing, legal testing). Performed By: #### 2 [id number] #### [facility] [address] [place] [address] U Fentanyl Positive Abnormal NEGATIVE [facility] Comment on above: Result Comment: Crit [...] testing, legal testing). Performed By: #### 2 [id number] #### [facility] [address] [place] [id number] UA with Cult Rflxon 10-08-19 24 Bacteria Auto Ql (U) 4+ /HPF Abnormal Trace [facility] Comment on above: Performed By: #### 4 [id number] #### [facility] [address] [place] [address] Clarity (U) Ex.Turbid Abnormal Clear [facility] Comment on above: Performed By: #### 4 [id number] #### [facility] [address] [place] [address] Color (U) [place] Abnormal Yellow [facility] Comment on above: Result Comment: Micr oscopic readings are only performed on those samples that meet specific criteria set forth by [facility]. Performed By: #### 4 [id number] #### [facility] [address] [place] [address] Hemoglobin Auto test strip (U) [Mass/Vol] 3+ mg/dL Abnormal Negative [facility] Comment on above: Performed By: #### 4 [id number] #### [facility] [address] [place] [address] Ketones Auto test strip Ql (U) 2+ mg/dL Abnormal Negative [facility] Comment on above: Performed By: #### 4 [id number] #### [facility] [address] [place] [address] Leukocyte clumps Auto (Urine sed) [#/Area] >30 Abnormal [facility] Comment on above: Performed By: #### 4 [id number] #### [facility] [address] [place] [address] Leukocyte esterase Auto test strip Ql (U) 500 Nima/uL Abnormal Negative [facility] Comment on above: Performed By: #### 4 [id number] #### [facility] [address] [place] [address] Mucus Auto Ql (U) 1+ CD:[id number] Abnormal Negative [facility] Comment on above: Performed By: #### 4 [id number] #### [facility] [address] [place] [address] Nitrite Auto test strip Ql (U) 2+ mg/dL Abnormal Negative [facility] Comment on above: Performed By: #### 4 [id number] #### [facility] [address] [place] [address] pH (U) 6.0 [pH] Invalid Interpretation Code 5.0-9.0 [facility] Comment on above: Performed By: #### 4 [id number] #### [facility] [address] [place] [address] Protein Ql (U) 2+ mg/dL Abnormal Negative [facility] Comment on above: Performed By: #### 4 [id number] #### [facility] [address] [place] [address] RBC Ql (U) >75 Abnormal 0-3 [facility] Comment on above: Performed By: #### 4 [id number] #### [facility] [address] [place] [address] Specific gravity (U) [Rel density] 1.018 Invalid Interpretation Code 1.005-1.03 0 [facility] Comment on above: Performed By: #### 4 [id number] #### [facility] [address] [place] [address] WBC Auto (Urine sed) [#/Area] >75 Abnormal 0-5 [facility] Comment on above: Performed By: #### 4 [id number] #### [facility] [address] [place] [address] Type of Urine collection method Frankel Normal [facility] Comment on above: Performed By: #### 4 [id number] #### [facility] [address] [place] [address] UA with Cult RflxOrdered By: SYSTEM SYSTEM on 10-08-2023 Bilirubin Ql (U) Negative Normal Negativemg /dL [facility] Auto SS Comment on above: Performed By: #### 4 [id number] #### [facility] [address] [place] [address] Glucose Ql (U) Negative Normal Negativemg /dL [facility] UA Auto SS Comment on above: Performed By: #### 4 [id number] #### [facility] [address] [place] [address] Urobilinogen (U) [Mass/Vol] Negative Normal Negativemg /dL [facility] UA Auto SS Comment on above: Performed By: #### 4 [id number] #### [facility] [address] [place] [address] URINALYSISOrdered By: SYSTEM SYSTEM on 10-08-2023 Bacteria Auto Ql (U) 4+ /HPF Invalid Interpretation Code Trace/HPF [facility] UA Auto SS Clarity (U) Ex.Turbid *ABN* (10/08/23 2:00 PM) Invalid Interpretation Code Clear [facility] UA Auto SS Color (U) [place] 3 *ABN* (10/08/23 2:00 PM) Invalid Interpretation Code Yellow [facility] UA Auto SS Comment on above: Interpretive Data: M icroscopic readings are only performed on those samples that meet specific criteria set forth by [facility]. Hemoglobin Auto test strip (U) [...] 2+ mg/dL Invalid Interpretation Code Negativemg /dL [facility] UA Auto SS pH (U) 6.0 *NA* (10/08/23 2:00 PM) Invalid Interpretation Code 5.0 - 9.0 [facility] UA Auto SS Protein Ql (U) 2+ mg/dL Invalid Interpretation Code Negativemg /dL [facility] UA Auto SS RBC Ql (U) >75 graded/HPF Invalid Interpretation Code 0-3graded/ HPF [facility] UA Auto SS Specific gravity (U) [Rel density] 1.018 *NA* (10/08/23 2:00 PM) Invalid Interpretation Code 1.005 - 1.030 [facility] UA Auto SS WBC Auto (Urine sed) [#/Area] >75 graded/HPF Invalid Interpretation Code 0-5graded/ HPF [facility] UA Auto SS URINALYSISOrdered By: Rigo clemente on 10-08-2023 UA Spec Desc Frank[place] (10/08/23 2:00 PM) Normal [facility] UA Auto SS Work Phone: XR Forearm [...] mGy = na DAP = na Normal [facility] XR Hip 2-3 Views Right + [...] mGy = na DAP = na Normal [facility] XR Wrist 3+ Views Righton XR [...] mGy = na DAP = na Normal [facility] eGFRon 10-08-2023 eGFR 99 mL/min/1.73 m2 Normal >=59 [facility] Comment on above: Order Comment: Order added by Discern Expert. Performed By: #### 1 [id number] #### [address] [address] BNPon 08-19-2022 Natriuretic peptide B (Bld) [Mass/Vol] 233.0 pg/mL Normal <=900.0 [facility] Comment on above: Performed By: #### L IVER #### [facility] [address] [place] [address] Dr. Shine Del Rosario CARDIAC WILD ADMITon 023 CK [Catalytic activity/Vol] 59 U/L Normal 26-192 [facility] Comment on above: Performed By: #### L IVER #### [facility] [address] [place] [address] Dr. Shine Del Rosario CK.MB [Mass/Vol] ng/mL Normal <=3.60 [facility] Comment on above: Performed By: #### L IVER #### [facility] [address] [place] [address] Dr. Shine Del Rosario HSTROP 6.4 pg/mL Normal 4.0-51.3 [facility] Comment on above: Result Comment: CUT- OFF POINTS HAVE BEEN ESTABLISHED BASED ON THE FOURTH UNIVERSAL DEFINITIONS OF MYOCARDIAL INFARCTION. THE UPPER REFERENCE LIMIT (URL) OF TROPONIN, DEFINED THE 99TH PERCENTILE OF cTnI DISTRIBUTION IN A REFERENCE POPULATION, HAS BEEN CONFIRMED THE DECISION THRESHOLD FOR AR DIAGNOSIS. Performed By: #### L IVER #### [facility] [address] [place] [address] Dr. Shine Del Rosario YANG 70 ng/mL Normal 9-82 [facility] Comment on above: Performed By: #### L IVER #### [facility] [address] [place] [address] Dr. Shine Del Rosario CBC W MANUAL DIFFon 08-20-19 23 ATYPICAL LYMPH # Normal [facility] Comment on above: Performed By: #### P HVEN #### [facility] [address] [place] [address] Dr. Shine Del Rosario ATYPICAL LYMPH % Normal [facility] Comment on above: Performed By: #### P HVEN #### [facility] [address] [place] [address] Dr. Shine Del Rosario BAND # Normal 0.0-0.3 [facility] Comment on above: Performed By: #### P HVEN #### [facility] [address] [address] [address] Shine Del Rosario BAND % Normal 0-5 [facility] Comment on above: Performed By: #### P HVEN #### [facility] [address] [place] [address] Dr. Shine Del Rosario BASOM # 0.00 103/ul Normal 0.00-0.10 [facility] Comment on above: Performed By: #### P HVEN #### [facility] [address] [place] [address] Dr. Shine Del Rosario BASOM % 0.0 % Critically low 0.2-2.0 [facility] Comment on above: Performed By: #### P HVEN #### [facility] [address] [place] [address] Dr. Shine Del Rosario BLAST # Normal [facility] Comment on above: Performed By: #### P HVEN #### [facility] [address] [address] [address] Shine Del Rosario BLAST % Normal [facility] Comment on above: Performed By: #### P HVEN #### [facility] [address] [place] [address] Dr. Shine Del Rosario CORRECTED WBC Normal 4.0-11.0 [facility] Comment on above: Performed By: #### P HVEN #### [facility] [address] [address] [address] Shine Del Rosario EOS # 0.50 103/ul Normal 0.00-0.70 [facility] Comment on above: Performed By: #### P HVEN #### [facility] [address] [place] [address] Dr. Shine Del Rosario EOS% 7.0 % Normal 0.9-7.0 [facility] Comment on above: Performed By: #### P HVEN #### [facility] [address] [place] [address] Dr. Shine Del Rosario HCT 37.0 % Normal 36.0-48.0 [facility] Comment on above: Performed By: #### P HVEN #### [facility] [address] [address] [address] Shine Del Rosario HGB 12.3 g/dl Normal 12.0-16.0 [facility] Comment on above: Performed By: #### P HVEN #### [facility] [address] [address] [address] Shine Del Rosario LYMPHM # 0.58 103/ul Critically low 1.20-3.80 [facility] Comment on above: Performed By: #### P HVEN #### [facility] [address] [place] [address] Dr. Shine Del Rosario LYMPHM% 8.0 % Critically low 20.5-60.0 [facility] Comment on above: Performed By: #### P HVEN #### [facility] [address] [place] [address] Dr. Shine Del Rosario MCH 32.5 pg Normal 26.7-34.0 [facility] Comment on above: Performed By: #### P HVEN #### [facility] [address] [place] [address] Dr. Shine Del Rosario MCHC 33.2 g/dl Normal 29.9-35.2 [facility] Comment on above: Performed By: #### P HVEN #### [facility] [address] [place] [address] Dr. Shine Del Rosario MCV 97.6 fL Normal 81.0-99.0 [facility] Comment on above: Performed By: #### P HVEN #### [facility] [address] [place] [address] Dr. Shine Del Rosario METAMYELOCYTE # Normal [facility] Comment on above: Performed By: #### P HVEN #### [facility] [address] [place] [address] Dr. Shine Del Rosario METAMYELOCYTE % Normal [facility] Comment on above: Performed By: #### P HVEN #### [facility] [address] [place] [address] Dr. Shine Del Rosario MONOM# 0.86 103/ul Critically high 0.30-0.80 [facility] Comment on above: Performed By: #### P HVEN #### [facility] [address] [address] [address] Shine Del Rosario MONOM% 12.0 % Normal 1.7-12.0 [facility] Comment on above: Performed By: #### P HVEN #### [facility] [address] [place] [address] Dr. Shine Del Rosario MPV 8.9 fL Critically low 9.5-13.5 [facility] Comment on above: Performed By: #### P HVEN #### [facility] [address] [place] [address] Dr. Shine Del Rosario MYELOCYTE # Normal [facility] Comment on above: Performed By: #### P HVEN #### [facility] [address] [place] [address] Dr. Shine Del Rosario MYELOCYTE % Normal [facility] Comment on above: Performed By: #### P HVEN #### [facility] [address] [place] [address] Dr. Shine Del Rosario NRBC Normal [facility] Comment on above: Performed By: #### P HVEN #### [facility] [address] [place] [address] Dr. Shine Del Rosario PLT 288 103/ul Normal 150-450 [facility] Comment on above: Performed By: #### P HVEN #### [facility] [address] [place] [address] Dr. Shine Del Rosario RBC 3.79 106/ul Critically low 4.20-5.40 [facility] Comment on above: Performed By: #### P HVEN #### [facility] [address] [place] [address] Dr. Shine Del Rosario RDW 11.3 % Normal 11.0-15.0 [facility] Comment on above: Performed By: #### P HVEN #### [facility] [address] [place] [address] Dr. Shine Del Rosario SEG # 5.26 103/ul Normal 1.40-6.50 [facility] Comment on above: Performed By: #### P HVEN #### [facility] [address] [place] [address] Dr. Shine Del Rosario SEG % 73.0 % Normal 43.0-75.0 [facility] Comment on above: Performed By: #### P HVEN #### [facility] [address] [place] [address] Dr. Shine Del Rosario WBC 7.2 103/ul Normal 4.0-11.0 [facility] Comment on above: Performed By: #### P HVEN #### [facility] [address] [place] [address] Dr. Shine Del Rosario PROF 14(COMP METB)on 023 Albumin [Mass/Vol] 3.4 g/dL Normal 3.4-5.0 [facility] Comment on above: Performed By: #### L IVER #### [facility] [address] [place] [address] Dr. Shine Del Rosario Albumin/Globulin [Mass ratio] 0.9 {ratio} Normal [facility] Comment on above: Performed By: #### L IVER #### [facility] [address] [place] [address] Dr. Shine Del Rosario ALP [Catalytic activity/Vol] 152 U/L Critically high 46-116 [facility] Comment on above: Performed By: #### L IVER #### [facility] [address] [place] [address] Dr. Shine Del Rosario ALT [Catalytic activity/Vol] 126 U/L Critically high 14-59 [facility] Comment on above: Performed By: #### L IVER #### [facility] [address] [place] [address] Dr. Shine Del Rosario Anion gap [Moles/Vol] 15.5 mmol/L Normal [facility] Comment on above: Performed By: #### L IVER #### [facility] [address] [place] [address] Dr. Shine Del Rosario AST [Catalytic activity/Vol] 158 U/L Critically high 15-37 [facility] Comment on above: Performed By: #### L IVER #### [facility] [address] [address] [address] Shine Del Rosario Bilirubin [Mass/Vol] 1.3 mg/dL Critically high 0.2-1.0 [facility] Comment on above: Performed By: #### L IVER #### [facility] [address] [address] [address] Shine Del Rosario Calcium [Mass/Vol] 9.5 mg/dL Normal 8.5-10.1 [facility] Comment on above: Performed By: #### L IVER #### [facility] [address] [place] [address] Dr. Shine Del Rosario Chloride [Moles/Vol] 95 mmol/L Critically low 98-107 [facility] Comment on above: Performed By: #### L IVER #### [facility] [address] [place] [address] Dr. Shine Del Rosario CO2 [Moles/Vol] 22.0 mmol/L Normal 21.0-32.0 [facility] Comment on above: Performed By: #### L IVER #### [facility] [address] [place] [address] Dr. Shine Del Rosario Creatinine [Mass/Vol] 0.65 mg/dL Normal 0.55-1.02 [facility] Comment on above: Performed By: #### L IVER #### [facility] [address] [place] [address] Dr. Shine Del Rosario EGFR-AF [place] >60 Normal >=60 [facility] Comment on above: Performed By: #### L IVER #### [facility] [address] [place] [address] Dr. Shine Del Rosario EGFR-NON AF [place] >60 Normal >=60 [facility] Comment on above: Performed By: #### L IVER #### [facility] [address] [place] [address] Dr. Shine Del Rosario Globulin (S) [Mass/Vol] 3.9 g/dL Normal [facility] Comment on above: Performed By: #### L IVER #### [facility] [address] [address] [address] Shine Del Rosario Glucose [Mass/Vol] 97 mg/dL Normal 74-106 [facility] Comment on above: Performed By: #### L IVER #### [facility] [address] [address] [address] Shine Del Rosario Potassium [Moles/Vol] 4.5 mmol/L Normal 3.5-5.1 [facility] Comment on above: Performed By: #### L IVER #### [facility] [address] [address] [address] Shine Del Rosario Protein [Mass/Vol] 7.3 g/dL Normal 6.4-8.2 [facility] Comment on above: Performed By: #### L IVER #### [facility] [address] [address] [address] Shine Del Rosario Sodium [Moles/Vol] 128 mmol/L Critically low 136-145 [facility] Comment on above: Performed By: #### L IVER #### [facility] [address] [address] [address] Shine Del Rosario Urea nitrogen [Mass/Vol] 5.0 mg/dL Critically low 7.0-18.0 [facility] Comment on above: Performed By: #### L IVER #### [facility] [address] [address] [address] Shine Del Rosario Urea nitrogen/Creatinine [Mass ratio] 7.7 mg/mg Normal [facility] Comment on above: Performed By: #### L IVER #### [facility] [address] [address] [address] Shine Del Rosario XR CHEST 1 [...] BEBETO PUTNAM Date: 2022-08-19 10:32 Normal [facility] BNPon 05-10-2022 Natriuretic peptide B (Bld) [Mass/Vol] 952.0 pg/mL Critically high <=900.0 [facility] Comment on above: Performed By: #### L IVER #### [facility] [address] [place] [address] Dr. Shine Del Rosario CBC AUTO DIFFon 05-10-2022 BASO # 0.1 103/ul Normal 0.0-0.1 [facility] Comment on above: Performed By: #### P TT, PT #### [facility] [address] [place] [address] Dr. Shine Del Rosario Basophils/100 WBC (Bld) 0.7 % Normal 0.2-2.0 [facility] Comment on above: Performed By: #### P TT, PT #### [facility] [address] [place] [address] Dr. Shine Del Rosario EO # 0.2 103/ul Normal 0.0-0.7 [facility] Comment on above: Performed By: #### P TT, PT #### [facility] [address] [place] [address] Dr. Shine Del Rosario Eosinophils/100 WBC (Bld) 2.1 % Normal 0.9-7.0 [facility] Comment on above: Performed By: #### P TT, PT #### [facility] [address] [place] [address] Dr. Shine Del Rosario Erythrocyte distribution width (RBC) [Ratio] 12.6 % Normal 11.0-15.0 [facility] Comment on above: Performed By: #### P TT, PT #### [facility] [address] [place] [address] Dr. Shine Del Rosario Hematocrit (Bld) [Volume fraction] 35.0 % Critically low 36.0-48.0 [facility] Comment on above: Performed By: #### P TT, PT #### [facility] [address] [place] [address] Dr. Shine Del Rosario Hemoglobin (Bld) [Mass/Vol] 11.8 g/dL Critically low 12.0-16.0 [facility] Comment on above: Performed By: #### P TT, PT #### [facility] [address] [place] [address] Dr. Shine Del Rosario IG # 0.04 10e3/ul Critically high 0.00-0.03 [facility] Comment on above: Performed By: #### P TT, PT #### [facility] [address] [place] [address] Dr. Shine Del Rosario IG % 0.5 % Normal 0.0-0.5 [facility] Comment on above: Performed By: #### P TT, PT #### [facility] [address] [place] [address] Dr. Shine Del Rosario LYMPH # 1.2 103/ul Normal 1.2-3.8 [facility] Comment on above: Performed By: #### P TT, PT #### [facility] [address] [place] [address] Dr. Shine Del Rosario Lymphocytes/100 WBC (Bld) 14.2 % Critically low 20.5-60.0 [facility] Comment on above: Performed By: #### P TT, PT #### [facility] [address] [place] [address] Dr. Shine Del Rosario MANUAL DIFF REQ NO Normal [facility] Comment on above: Performed By: #### P TT, PT #### [facility] [address] [place] [address] Dr. Shine Del Rosario MCH (RBC) [Entitic mass] 33.2 pg Normal 26.7-34.0 [facility] Comment on above: Performed By: #### P TT, PT #### [facility] [address] [place] [address] Dr. Shine Del Rosario MCHC (RBC) [Mass/Vol] 33.7 g/dL Normal 29.9-35.2 [facility] Comment on above: Performed By: #### P TT, PT #### [facility] Laboratory [address] [place] [address] Dr. Shine Del Rosario MCV (RBC) [Entitic vol] 98.6 fL Normal 81.0-99.0 [facility] Comment on above: Performed By: #### P TT, PT #### [facility] Laboratory [address] [place] [address] Dr. Shine Del Rosario MONO # 0.8 103/ul Normal 0.3-0.8 [facility] Comment on above: Performed By: #### P TT, PT #### [facility] Laboratory [address] [place] [address] Dr. Shine Del Rosario Monocytes/100 WBC (Bld) 9.1 % Normal 1.7-12.0 [facility] Comment on above: Performed By: #### P TT, PT #### [facility] Laboratory [address] [place] [address] Dr. Shine Del Rosario NEUT # 6.4 103/ul Normal 1.4-6.5 [facility] Comment on above: Performed By: #### P TT, PT #### [facility] [address] [place] [address] Dr. Shine Del Rosario Neutrophils/100 WBC (Bld) 73.4 % Normal 43.0-75.0 [facility] Comment on above: Performed By: #### P TT, PT #### [facility] [address] [place] [address] Dr. Shine Del Rosario Platelet mean volume (Bld) [Entitic vol] 8.7 fL Critically low 9.5-13.5 [facility] Comment on above: Performed By: #### P TT, PT #### [facility] [address] [place] [address] Dr. Shine Del Rosario PLT 394 103/ul Normal 150-450 [facility] Comment on above: Performed By: #### P TT, PT #### [facility] [address] [place] [address] Dr. Shine Del Rosario RBC 3.55 106/ul Critically low 4.20-5.40 [facility] Comment on above: Performed By: #### P TT, PT #### [facility] [address] [address] [address] Shine Del Rosario WBC 8.7 103/ul Normal 4.0-11.0 [facility] Comment on above: Performed By: #### P TT, PT #### [facility] [address] [place] [address] Dr. Shine Del Rosario PROF 14(COMP METB)on 022 Albumin [Mass/Vol] 3.1 g/dL Critically low 3.4-5.0 [facility] Comment on above: Performed By: #### L IVER #### [facility] [address] [place] [address] Dr. Shine Del Rosario Albumin/Globulin [Mass ratio] 0.8 {ratio} Normal [facility] Comment on above: Performed By: #### L IVER #### [facility] [address] [place] [address] Dr. Shine Del Rosario ALP [Catalytic activity/Vol] 167 U/L Critically high 46-116 [facility] Comment on above: Performed By: #### L IVER #### [facility] [address] [place] [address] Dr. Shine Del Rosario ALT [Catalytic activity/Vol] 50 U/L Normal 14-59 [facility] Comment on above: Performed By: #### L IVER #### [facility] [address] [place] [address] Dr. Shine Del Rosario Anion gap [Moles/Vol] 11.6 mmol/L Normal [facility] Comment on above: Performed By: #### L IVER #### [facility] [address] [place] [address] Dr. Shine Del Rosario AST [Catalytic activity/Vol] 46 U/L Critically high 15-37 [facility] Comment on above: Performed By: #### L IVER #### [facility] [address] [place] [address] Dr. Shine Del Rosario Bilirubin [Mass/Vol] 0.7 mg/dL Normal 0.2-1.0 [facility] Comment on above: Performed By: #### L IVER #### [facility] [address] [address] [address] Shine Del Rosario Calcium [Mass/Vol] 9.0 mg/dL Normal 8.5-10.1 [facility] Comment on above: Performed By: #### L IVER #### [facility] [address] [place] [address] Dr. Shine Del Rosario Chloride [Moles/Vol] 100 mmol/L Normal 98-107 [facility] Comment on above: Performed By: #### L IVER #### [facility] [address] [place] [address] Dr. Shine Del Rosario CO2 [Moles/Vol] 24.7 mmol/L Normal 21.0-32.0 [facility] Comment on above: Performed By: #### L IVER #### [facility] [address] [place] [address] Dr. Shine Del Rosario Creatinine [Mass/Vol] 0.61 mg/dL Normal 0.55-1.02 [facility] Comment on above: Performed By: #### L IVER #### [facility] [address] [place] [address] Dr. Shine Del Rosario EGFR-AF COSTA RICAN >60 Normal >=60 [facility] Comment on above: Performed By: #### L IVER #### [facility] [address] [place] [address] Dr. Shine Del Rosario EGFR-NON AF CO[place] RICAN >60 Normal >=60 [facility] Comment on above: Performed By: #### L IVER #### [facility] [address] [place] [address] Dr. Shine Del Rosario Globulin (S) [Mass/Vol] 3.7 g/dL Normal [facility] Comment on above: Performed By: #### L IVER #### [facility] [address] [place] [address] Dr. Shine Del Rosario Glucose [Mass/Vol] 98 mg/dL Normal 74-106 [facility] Comment on above: Performed By: #### L IVER #### [facility] [address] [place] [address] Dr. Shine Del Rosario Potassium [Moles/Vol] 4.3 mmol/L Normal 3.5-5.1 [facility] Comment on above: Performed By: #### L IVER #### [facility] [address] [place] [address] Dr. Shine Del Rosario Protein [Mass/Vol] 6.8 g/dL Normal 6.4-8.2 [facility] Comment on above: Performed By: #### L IVER #### [facility] [address] [place] [address] Dr. Shine Del Rosario Sodium [Moles/Vol] 132 mmol/L Critically low 136-145 [facility] Comment on above: Performed By: #### L IVER #### [facility] [address] [place] [address] Dr. Shine Del Rosario Urea nitrogen [Mass/Vol] 6.0 mg/dL Critically low 7.0-18.0 [facility] Comment on above: Performed By: #### L IVER #### [facility] [address] [place] [address] Dr. Shine Del Rosario Urea nitrogen/Creatinine [Mass ratio] 9.8 mg/mg Normal [facility] Comment on above: Performed By: #### L IVER #### [facility] [address] [place] [address] Dr. Shine Del Rosario PROTIMEon 05-10-2022 INR Coag (PPP) [Relative time] 0.96 {INR} Normal [facility] Comment on above: Performed By: #### P TT, PT #### [facility] [address] [place] [address] Dr. Shine Del Rosario INR GUIDELINES SEE BELOW Normal [facility] Comment on above: Result Comment: JUDY RED INR: 2.0 - 3.0 CONDITIONS NOT LISTED BELOW 2.5 - 3.5 FOR PROSTHETIC HEART VALVE REPLACEMENT 2.5 - 3.5 RECURRENT THROMBOSIS Performed By: #### P TT, PT #### [facility] [address] [place] [address] Dr. Shine Del Rosario PT Coag (PPP) [Time] 10.4 s Normal 9.0-11.6 [facility] Comment on above: Performed By: #### P TT, PT #### [facility] [address] [place] [address] Dr. Shine Del Rosario PTTon 05-10-2022 aPTT Coag (Bld) [Time] 42.0 s Critically high 22.3-36.2 [facility] Comment on above: Performed By: #### P TT, PT #### [facility] [address] [place] [address] Dr. Shine Del Rosario US JAC DOP LEG BILon 022 US JAC DOP LEG YUNG EXAMINATION: US JAC DOP LEG UYNG HISTORY: Pain in bilateral lower legs COMPARISON: No relevant comparison available. TECHNIQUE: Grayscale, color and Doppler ultrasound FINDINGS: Region: Bilateral legs Thrombus: None Flow: Normal Compressibility: Normal Augmentation: Normal IMPRESSION: No deep or superficial vein thrombus in the legs *Exam performed in accordance with [facility] practice guidelines- Peripheral venous ultrasound, August 07, 2009. Electronically authenticated by: PAWAN GEORGE Date: 2022-05-10 13:11 Normal [facility] BNPon 01-19-2022 Natriuretic peptide B (Bld) [Mass/Vol] 175.0 pg/mL Normal <=900.0 [facility] Comment on above: Performed By: #### C MP, BNP, HSTROPN #### [facility] [address] [place] [address] Dr. Shine Del Rosario CBC AUTO DIFFon 01-19-2022 BASO # 0.1 103/ul Normal 0.0-0.1 [facility] Comment on above: Performed By: #### P TT, PT #### [facility] [address] [place] [address] Dr. Shine Del Rosario Basophils/100 WBC (Bld) 0.9 % Normal 0.2-2.0 [facility] Comment on above: Performed By: #### P TT, PT #### [facility] [address] [place] [address] Dr. Shine Del Rosario EO # 0.9 103/ul Critically high 0.0-0.7 [facility] Comment on above: Performed By: #### P TT, PT #### [facility] [address] [place] [address] Dr. Shine Del Rosario Eosinophils/100 WBC (Bld) 10.6 % Critically high 0.9-7.0 [facility] Comment on above: Performed By: #### P TT, PT #### [facility] [address] [place] [address] Dr. Shine Del Rosario Erythrocyte distribution width (RBC) [Ratio] 11.4 % Normal 11.0-15.0 [facility] Comment on above: Performed By: #### P TT, PT #### [facility] [address] [place] [address] Dr. Shine Del Rosario Hematocrit (Bld) [Volume fraction] 36.9 % Normal 36.0-48.0 [facility] Comment on above: Performed By: #### P TT, PT #### [facility] [address] [place] [address] Dr. Shine Del Rosario Hemoglobin (Bld) [Mass/Vol] 12.1 g/dL Normal 12.0-16.0 [facility] Comment on above: Performed By: #### P TT, PT #### [facility] [address] [place] [address] Dr. Shine Del Rosario IG # 0.04 10e3/ul Critically high 0.00-0.03 [facility] Comment on above: Performed By: #### P TT, PT #### [facility] [address] [place] [address] Dr. Shine Del Rosario IG % 0.5 % Normal 0.0-0.5 [facility] Comment on above: Performed By: #### P TT, PT #### [facility] [address] [place] [address] Dr. Shine Del Rosario LYMPH # 1.7 103/ul Normal 1.2-3.8 [facility] Comment on above: Performed By: #### P TT, PT #### [facility] [address] [place] [address] Dr. Shine Del Rosario Lymphocytes/100 WBC (Bld) 20.4 % Critically low 20.5-60.0 [facility] Comment on above: Performed By: #### P TT, PT #### [facility] [address] [place] [address] Dr. Shine Del Rosario MANUAL DIFF REQ NO Normal [facility] Comment on above: Performed By: #### P TT, PT #### [facility] [address] [place] [address] Dr. Shine Del Rosario MCH (RBC) [Entitic mass] 32.8 pg Normal 26.7-34.0 [facility] Comment on above: Performed By: #### P TT, PT #### [facility] [address] [place] [address] Dr. Shine Del Rosario MCHC (RBC) [Mass/Vol] 32.8 g/dL Normal 29.9-35.2 [facility] Comment on above: Performed By: #### P TT, PT #### [facility] [address] [place] [address] Dr. Shine Del Rosario MCV (RBC) [Entitic vol] 100.0 fL Critically high 81.0-99.0 [facility] Comment on above: Performed By: #### P TT, PT #### [facility] [address] [place] [address] Dr. Shine Del Rosario MONO # 0.8 103/ul Normal 0.3-0.8 [facility] Comment on above: Performed By: #### P TT, PT #### [facility] [address] [place] [address] Dr. Shine Del Rosario Monocytes/100 WBC (Bld) 9.6 % Normal 1.7-12.0 [facility] Comment on above: Performed By: #### P TT, PT #### [facility] [address] [place] [address] Dr. Shine Del Rosario NEUT # 4.8 103/ul Normal 1.4-6.5 [facility] Comment on above: Performed By: #### P TT, PT #### [facility] [address] [place] [address] Dr. Shine Del Rosario Neutrophils/100 WBC (Bld) 58.0 % Normal 43.0-75.0 [facility] Comment on above: Performed By: #### P TT, PT #### [facility] [address] [address] [address] Shine Del Rosario Platelet mean volume (Bld) [Entitic vol] 8.9 fL Critically low 9.5-13.5 [facility] Comment on above: Performed By: #### P TT, PT #### [facility] [address] [address] [address] Shine Del Rosario PLT 336 103/ul Normal 150-450 [facility] Comment on above: Performed By: #### P TT, PT #### [facility] [address] [address] [address] Shine Del Rosario RBC 3.69 106/ul Critically low 4.20-5.40 [facility] Comment on above: Performed By: #### P TT, PT #### [facility] [address] [place] [address] Dr. Shine Del Rosario WBC 8.2 103/ul Normal 4.0-11.0 [facility] Comment on above: Performed By: #### P TT, PT #### [facility] [address] [address] [address] Shine Del Rosario Covid-19 PCR ([facility] [place])on SARS-CoV-2 (COVID-19) RNA LYLA+probe Ql (Unsp spec) Not detected Normal NOT DETECTED [facility] Comment on above: Result Comment: When diagnostic [...] for this test is supported by the [place]'s declaration that [...] used). Performed By: #### P HVEN #### [facility] [address] [place] [address] Dr. Shine Del Rosario LACTATE/LACTIC ACIDon 2021 Lactate [Moles/Vol] 0.9 mmol/L Normal 0.4-1.9 [facility] Comment on above: Performed By: #### P TT, PT #### [facility] [address] [place] [address] Dr. Shine Del Rosario PH VENOUS BLOODon 01-19-2022 PCO2 VENOUS 43.6 mmHg Normal 40.0-52.0 [facility] Comment on above: Performed By: #### P HVEN #### [facility] [address] [place] [address] Dr. Shine Del Rosario pH VENOUS 7.360 Normal 7.330-7.43 0 [facility] Comment on above: Performed By: #### P HVEN #### [facility] [address] [place] [address] Dr. Shine Del Rosario PROF 14(COMP METB)on 022 Albumin [Mass/Vol] 3.3 g/dL Critically low 3.4-5.0 Th [facility] Comment on above: Performed By: #### C MP, BNP, HSTROPN #### [facility] [address] [place] [address] Dr. Shine Del Rosario Albumin/Globulin [Mass ratio] 0.8 {ratio} Normal [facility] Comment on above: Performed By: #### C MP, BNP, HSTROPN #### [facility] [address] [place] [address] Dr. Shine Del Rosario ALP [Catalytic activity/Vol] 158 U/L Critically high 46-116 [facility] Comment on above: Performed By: #### C MP, BNP, HSTROPN #### [facility] [address] [place] [address] Dr. Shine Del Rosario ALT [Catalytic activity/Vol] 95 U/L Critically high 14-59 [facility] Comment on above: Performed By: #### C MP, BNP, HSTROPN #### [facility] [address] [address] [address] Shine Del Rosario Anion gap [Moles/Vol] 10.7 mmol/L Normal [facility] Comment on above: Performed By: #### C MP, BNP, HSTROPN #### [facility] [address] [place] [address] Dr. Shine Del Rosario AST [Catalytic activity/Vol] 118 U/L Critically high 15-37 [facility] Comment on above: Performed By: #### C MP, BNP, HSTROPN #### [facility] [address] [place] [address] Dr. Shine Del Rosario Bilirubin [Mass/Vol] 0.8 mg/dL Normal 0.2-1.0 [facility] Comment on above: Performed By: #### C MP, BNP, HSTROPN #### [facility] [address] [place] [address] Dr. Shine Del Rosario Calcium [Mass/Vol] 8.8 mg/dL Normal 8.5-10.1 [facility] Comment on above: Performed By: #### C MP, BNP, HSTROPN #### [facility] [address] [place] [address] Dr. Shine Del Rosario Chloride [Moles/Vol] 96 mmol/L Critically low 98-107 [facility] Comment on above: Performed By: #### C MP, BNP, HSTROPN #### [facility] [address] [place] [address] Dr. Shine Del Rosario CO2 [Moles/Vol] 24.3 mmol/L Normal 21.0-32.0 [facility] Comment on above: Performed By: #### C MP, BNP, HSTROPN #### [facility] [address] [place] [address] Dr. Shine Del Rosario Creatinine [Mass/Vol] 0.69 mg/dL Normal 0.55-1.02 [facility] Comment on above: Performed By: #### C MP, BNP, HSTROPN #### [facility] [address] [address] [address] Shine Del Rosario EGFR-AF CO[place] RICAN >60 Normal >=60 [facility] Comment on above: Performed By: #### C MP, BNP, HSTROPN #### [facility] [address] [address] [address] Shine Del Rosario EGFR-NON AF [place] R[place] >60 Normal >=60 [facility] Comment on above: Performed By: #### C MP, BNP, HSTROPN #### [facility] [address] [address] [address] Shine Del Rosario Globulin (S) [Mass/Vol] 4.1 g/dL Normal [facility] Comment on above: Performed By: #### C MP, BNP, HSTROPN #### [facility] [address] [address] [address] Shine Del Rosario Glucose [Mass/Vol] 87 mg/dL Normal 74-106 [facility] Comment on above: Performed By: #### C MP, BNP, HSTROPN #### [facility] [address] [address] [address] Shine Del Rosario Potassium [Moles/Vol] 4.0 mmol/L Normal 3.5-5.1 [facility] Comment on above: Performed By: #### C MP, BNP, HSTROPN #### [facility] [address] [address] [address] Shine Del Rosario Protein [Mass/Vol] 7.4 g/dL Normal 6.4-8.2 [facility] Comment on above: Performed By: #### C MP, BNP, HSTROPN #### [facility] [address] [address] [address] Shine Del Rosario Sodium [Moles/Vol] 127 mmol/L Critically low 136-145 Th [facility] Comment on above: Performed By: #### C MP, BNP, HSTROPN #### [facility] [address] [address] [address] Shine Del Rosario Urea nitrogen [Mass/Vol] 4.0 mg/dL Critically low 7.0-18.0 [facility] Comment on above: Performed By: #### C MP, BNP, HSTROPN #### [facility] [address] [place] [address] Dr. Shine Del Rosario Urea nitrogen/Creatinine [Mass ratio] 5.8 mg/mg Normal [facility] Comment on above: Performed By: #### C MP, BNP, HSTROPN #### [facility] [address] [place] [address] Dr. Shine Del Rosario PROTIMEon 01-19-2022 INR Coag (PPP) [Relative time] 0.97 {INR} Normal [facility] Comment on above: Performed By: #### B MP #### [facility] [address] [place] [address] Dr. Shine Del Rosario INR GUIDELINES SEE BELOW Normal [facility] Comment on above: Result Comment: JUDY RED INR: 2.0 - 3.0 CONDITIONS NOT LISTED BELOW 2.5 - 3.5 FOR PROSTHETIC HEART VALVE REPLACEMENT 2.5 - 3.5 RECURRENT THROMBOSIS Performed By: #### B MP #### [facility] [address] [place] [address] Dr. Shine Del Rosario PT Coag (PPP) [Time] 10.5 s Normal 9.0-11.6 [facility] Comment on above: Performed By: #### B MP #### [facility] [address] [place] [address] Dr. Shine Del Rosario PTTon 01-19-2022 aPTT Coag (Bld) [Time] 45.8 s Critically high 22.3-36.2 [facility] Comment on above: Performed By: #### B MP #### [facility] [address] [place] [address] Dr. Shine Del Rosario TROPONIN, HIGH SENSITIVITYon 01-19-2022 HSTROP 11.4 pg/mL Normal 4.0-51.3 [facility] Comment on above: Result Comment: CUT- OFF POINTS HAVE BEEN ESTABLISHED BASED ON THE FOURTH UNIVERSAL DEFINITIONS OF MYOCARDIAL INFARCTION. THE UPPER REFERENCE LIMIT (URL) OF TROPONIN, DEFINED THE 99TH PERCENTILE OF cTnI DISTRIBUTION IN A REFERENCE POPULATION, HAS BEEN CONFIRMED THE DECISION THRESHOLD FOR AR DIAGNOSIS. Performed By: #### P HVEN #### [facility] [address] [address] [address] Shine Del Rosario XR CHEST 1 [...] PAWAN BRUNNER Date: 2022-01-19 19:05 Normal [facility] CBC AUTO DIFFon 10-18-2021 BASO # 0.0 103/ul Normal 0.0-0.1 [facility] Comment on above: Performed By: #### L IVER #### [facility] [address] [address] [address] Shine Del Rosario Basophils/100 WBC (Bld) 0.7 % Normal 0.2-2.0 [facility] Comment on above: Performed By: #### L IVER #### [facility] [address] [address] [address] Shine Del Rosario EO # 0.1 103/ul Normal 0.0-0.7 [facility] Comment on above: Performed By: #### L IVER #### [facility] [address] [address] [address] Shine Del Rosario Eosinophils/100 WBC (Bld) 1.1 % Normal 0.9-7.0 [facility] Comment on above: Performed By: #### L IVER #### [facility] [address] [address] [address] Shine Del Rosario Erythrocyte distribution width (RBC) [Ratio] 16.3 % Critically high 11.0-15.0 [facility] Comment on above: Performed By: #### L IVER #### [facility] [address] [address] [address] Shine Del Rosario Hematocrit (Bld) [Volume fraction] 34.0 % Critically low 36.0-48.0 [facility] Comment on above: Performed By: #### L IVER #### [facility] [address] [place] [address] Dr. Shine Del Rosario Hemoglobin (Bld) [Mass/Vol] 10.8 g/dL Critically low 12.0-16.0 [facility] Comment on above: Performed By: #### L IVER #### [facility] [address] [place] [address] Dr. Shine Del Rosario IG # 0.06 10e3/ul Critically high 0.00-0.03 [facility] Comment on above: Performed By: #### L IVER #### [facility] [address] [place] [address] Dr. Shine Del Rosario IG % 1.1 % Critically high 0.0-0.5 [facility] Comment on above: Performed By: #### L IVER #### [facility] [address] [place] [address] Dr. Shine Del Rosario LYMPH # 1.1 103/ul Critically low 1.2-3.8 [facility] Comment on above: Performed By: #### L IVER #### [facility] [address] [place] [address] Dr. Shine Del Rosario Lymphocytes/100 WBC (Bld) 19.5 % Critically low 20.5-60.0 [facility] Comment on above: Performed By: #### L IVER #### [facility] [address] [place] [address] Dr. Shine Del Rosario MANUAL DIFF REQ NO Normal [facility] Comment on above: Performed By: #### L IVER #### [facility] [address] [place] [address] Dr. Shine Del Rosario MCH (RBC) [Entitic mass] 32.1 pg Normal 26.7-34.0 [facility] Comment on above: Performed By: #### L IVER #### [facility] [address] [place] [address] Dr. Shine Del Rosario MCHC (RBC) [Mass/Vol] 31.8 g/dL Normal 29.9-35.2 [facility] Comment on above: Performed By: #### L IVER #### [facility] [address] [place] [address] Dr. Shine Del Rosario MCV (RBC) [Entitic vol] 101.2 fL Critically high 81.0-99.0 [facility] Comment on above: Performed By: #### L IVER #### [facility] [address] [place] [address] Dr. Shine Del Rosario MONO # 0.4 103/ul Normal 0.3-0.8 [facility] Comment on above: Performed By: #### L IVER #### [facility] [address] [place] [address] Dr. Shine Del Rosario Monocytes/100 WBC (Bld) 6.8 % Normal 1.7-12.0 [facility] Comment on above: Performed By: #### L IVER #### [facility] [address] [place] [address] Dr. Shine Del Rosario NEUT # 4.0 103/ul Normal 1.4-6.5 [facility] Comment on above: Performed By: #### L IVER #### [facility] [address] [place] [address] Dr. Shine Del Rosario Neutrophils/100 WBC (Bld) 70.8 % Normal 43.0-75.0 [facility] Comment on above: Performed By: #### L IVER #### [facility] [address] [place] [address] Dr. Shine Del Rosario Platelet mean volume (Bld) [Entitic vol] 8.5 fL Critically low 9.5-13.5 [facility] Comment on above: Performed By: #### L IVER #### [facility] [address] [place] [address] Dr. Shine Del Rosario PLT 307 103/ul Normal 150-450 [facility] Comment on above: Performed By: #### L IVER #### [facility] [address] [place] [address] Dr. Shine Del Rosario RBC 3.36 106/ul Critically low 4.20-5.40 [facility] Comment on above: Performed By: #### L IVER #### [facility] [address] [place] [address] Dr. Shine Del Rosario WBC 5.6 103/ul Normal 4.0-11.0 [facility] Comment on above: Performed By: #### L IVER #### [facility] [address] [place] [address] Dr. Shine Del Rosario FERRITINon 10-18-2021 Ferritin [Mass/Vol] 2763.0 ng/mL Critically high 8.0-252.0 [facility] Comment on above: Performed By: #### F ERR #### [facility] [address] [place] [address] Dr. Shine Del Rosario PROF 14(COMP METB)on 022 Albumin [Mass/Vol] 2.9 g/dL Critically low 3.4-5.0 [facility] Comment on above: Performed By: #### B MP #### [facility] [address] [place] [address] Dr. Shine Del Rosario Albumin/Globulin [Mass ratio] 0.7 {ratio} Normal [facility] Comment on above: Performed By: #### B MP #### [facility] [address] [place] [address] Dr. Shine Del Rosario ALP [Catalytic activity/Vol] 209 U/L Critically high 46-116 [facility] Comment on above: Performed By: #### B MP #### [facility] [address] [place] [address] Dr. Shine Del Rosario ALT [Catalytic activity/Vol] 357 U/L Critically high 14-59 [facility] Comment on above: Performed By: #### B MP #### [facility] [address] [place] [address] Dr. Shine Del Rosario Anion gap [Moles/Vol] 11.0 mmol/L Normal [facility] Comment on above: Performed By: #### B MP #### [facility] [address] [place] [address] Dr. Shine Del Rosario AST [Catalytic activity/Vol] 610 U/L Critically high 15-37 [facility] Comment on above: Performed By: #### B MP #### [facility] [address] [address] [address] hSine Del Rosario Bilirubin [Mass/Vol] 0.8 mg/dL Normal 0.2-1.0 [facility] Comment on above: Performed By: #### B MP #### [facility] [address] [address] [address] Shine Del Rosario Calcium [Mass/Vol] 8.5 mg/dL Normal 8.5-10.1 [facility] Comment on above: Performed By: #### B MP #### [facility] [address] [address] [address] Shine Del Rosario Chloride [Moles/Vol] 99 mmol/L Normal 98-107 [facility] Comment on above: Performed By: #### B MP #### [facility] [address] [place] [address] Dr. Shine Del Rosario CO2 [Moles/Vol] 27.2 mmol/L Normal 21.0-32.0 [facility] Comment on above: Performed By: #### B MP #### [facility] [address] [place] [address] Dr. Shine Del Rosario Creatinine [Mass/Vol] 0.68 mg/dL Normal 0.55-1.02 [facility] Comment on above: Performed By: #### B MP #### [facility] [address] [place] [address] Dr. Shine Del Rosario EGFR-AF COSTA RICAN >60 Normal >=60 [facility] Comment on above: Performed By: #### B MP #### [facility] [address] [address] [address] Shine Del Rosario EGFR-NON AF COSTA RICAN >60 Normal >=60 [facility] Comment on above: Performed By: #### B MP #### [facility] [address] [address] [address] Shine Del Rosario Globulin (S) [Mass/Vol] 4.3 g/dL Normal [facility] Comment on above: Performed By: #### B MP #### [facility] [address] [address] [address] Shine Del Rosario Glucose [Mass/Vol] 118 mg/dL Critically high 74-[address] [facility] Comment on above: Performed By: #### B MP #### [facility] [address] [address] [address] Shine Del Rosario Potassium [Moles/Vol] 3.2 mmol/L Critically low 3.5-5.1 [facility] Comment on above: Performed By: #### B MP #### [facility] [address] [address] [address] Shine Del Rosario Protein [Mass/Vol] 7.2 g/dL Normal 6.4-8.2 [facility] Comment on above: Performed By: #### B MP #### [facility] [address] [address] [address] Shine Del Rosario Sodium [Moles/Vol] 134 mmol/L Critically low 136-145 Th [facility] Comment on above: Performed By: #### B MP #### [facility] [address] [address] [address] Shine Del Rosario Urea nitrogen [Mass/Vol] 5.0 mg/dL Critically low 7.0-18.0 [facility] Comment on above: Performed By: #### B MP #### [facility] [address] [address] [address] Shine Del Rosario Urea nitrogen/Creatinine [Mass ratio] 7.4 mg/mg Normal [facility] Comment on above: Performed By: #### B MP #### [facility] [address] [address] [address] Shine Del Rosario CBC AUTO DIFFon 09-27-2021 BASO # 0.1 103/ul Normal 0.0-0.1 [facility] Comment on above: Performed By: #### L IVER #### [facility] [address] [address] [address] Shine Del Rosario Basophils/100 WBC (Bld) 1.1 % Normal 0.2-2.0 [facility] Comment on above: Performed By: #### L IVNILAM #### [facility] [address] [place] [address] Dr. Shine Del Rosario EO # 0.2 103/ul Normal 0.0-0.7 [facility] Comment on above: Performed By: #### L IVER #### [facility] [address] [place] [address] Dr. Shine Del Rosario Eosinophils/100 WBC (Bld) 2.8 % Normal 0.9-7.0 [facility] Comment on above: Performed By: #### L IVER #### [facility] [address] [place] [address] Dr. Shine Del Rosario Erythrocyte distribution width (RBC) [Ratio] 12.7 % Normal 11.0-15.0 [facility] Comment on above: Performed By: #### L IVER #### [facility] [address] [place] [address] Dr. Shine Del Rosario Hematocrit (Bld) [Volume fraction] 30.0 % Critically low 36.0-48.0 [facility] Comment on above: Performed By: #### L IVER #### [facility] [address] [place] [address] Dr. Shine Del Rosario Hemoglobin (Bld) [Mass/Vol] 9.9 g/dL Critically low 12.0-16.0 [facility] Comment on above: Performed By: #### L IVER #### [facility] [address] [place] [address] Dr. Shine Del Rosario IG # 0.08 10e3/ul Critically high 0.00-0.03 [facility] Comment on above: Performed By: #### L IVER #### [facility] [address] [place] [address] Dr. Shine Del Rosario IG % 1.5 % Critically high 0.0-0.5 [facility] Comment on above: Performed By: #### L IVER #### [facility] [address] [place] [address] Dr. Shine Del Rosario LYMPH # 1.5 103/ul Normal 1.2-3.8 [facility] Comment on above: Performed By: #### L IVER #### [facility] [address] [place] [address] Dr. Shine Del Rosario Lymphocytes/100 WBC (Bld) 29.0 % Normal 20.5-60.0 [facility] Comment on above: Performed By: #### L IVER #### [facility] [address] [place] [address] Dr. Shine Del Rosario MANUAL DIFF REQ NO Normal [facility] Comment on above: Performed By: #### L IVER #### [facility] [address] [place] [address] Dr. Shine Del Rosario MCH (RBC) [Entitic mass] 31.3 pg Normal 26.7-34.0 [facility] Comment on above: Performed By: #### L IVER #### [facility] [address] [place] [address] Dr. Shine Del Rosario MCHC (RBC) [Mass/Vol] 33.0 g/dL Normal 29.9-35.2 [facility] Comment on above: Performed By: #### L IVER #### [facility] [address] [place] [address] Dr. Shine Del Rosario MCV (RBC) [Entitic vol] 94.9 fL Normal 81.0-99.0 [facility] Comment on above: Performed By: #### L IVER #### [facility] [address] [place] [address] Dr. Shine Del Rosario MONO # 0.8 103/ul Normal 0.3-0.8 [facility] Comment on above: Performed By: #### L IVER #### [facility] [address] [place] [address] Dr. Shine Del Rosario Monocytes/100 WBC (Bld) 15.6 % Critically high 1.7-12.0 [facility] Comment on above: Performed By: #### L IVER #### [facility] [address] [place] [address] Dr. Shine Del Rosario NEUT # 2.7 103/ul Normal 1.4-6.5 [facility] Comment on above: Performed By: #### L IVER #### [facility] [address] [address] [address] Shine Del Rosario Neutrophils/100 WBC (Bld) 50.0 % Normal 43.0-75.0 [facility] Comment on above: Performed By: #### L IVER #### [facility] [address] [address] [address] Shine Del Rosario Platelet mean volume (Bld) [Entitic vol] 8.5 fL Critically low 9.5-13.5 [facility] Comment on above: Performed By: #### L IVER #### [facility] [address] [address] [address] Shine Del Rosario PLT 583 103/ul Critically high 150-450 [facility] Comment on above: Performed By: #### L IVER #### [facility] [address] [place] [address] Dr. Shine Del Rosario RBC 3.16 106/ul Critically low 4.20-5.40 [facility] Comment on above: Performed By: #### L IVER #### [facility] [address] [address] [address] Shine Del Rosario WBC 5.3 103/ul Normal 4.0-11.0 [facility] Comment on above: Performed By: #### L IVER #### [facility] [address] [place] [address] Dr. Shine Del Rosario FERRITINon 09-27-2021 Ferritin [Mass/Vol] 1664.0 ng/mL Critically high 8.0-252.0 [facility] Comment on above: Performed By: #### B MP #### [facility] [address] [place] [address] Dr. Shine Del Rosario PROF CHEM 8 (BAS METB)on Anion gap [Moles/Vol] 12.4 mmol/L Normal [facility] Comment on above: Performed By: #### B MP #### [facility] [address] [place] [address] Dr. Shine Del Rosario Calcium [Mass/Vol] 9.0 mg/dL Normal 8.5-10.1 [facility] Comment on above: Performed By: #### B MP #### [facility] [address] [address] [address] Shine Del Rosario Chloride [Moles/Vol] 94 mmol/L Critically low 98-107 [facility] Comment on above: Performed By: #### B MP #### [facility] [address] [address] [address] Shine Del Rosario CO2 [Moles/Vol] 26.2 mmol/L Normal 21.0-32.0 [facility] Comment on above: Performed By: #### B MP #### [facility] [address] [address] [address] Shine Del Rosario Creatinine [Mass/Vol] 0.65 mg/dL Normal 0.55-1.02 [facility] Comment on above: Performed By: #### B MP #### [facility] [address] [place] [address] Dr. Shine Del Rosario EGFR-AF [place] R[place] >60 Normal >=60 [facility] Comment on above: Performed By: #### B MP #### [facility] [address] [address] [address] Shine Del Rosario EGFR-NON AF [place] R[place] >60 Normal >=60 [facility] Comment on above: Performed By: #### B MP #### [facility] [address] [place] [address] Dr. Shine Del Rosario Glucose [Mass/Vol] 98 mg/dL Normal 74-106 [facility] Comment on above: Performed By: #### B MP #### [facility] [address] [address] [address] Shine Del Rosario Potassium [Moles/Vol] 4.6 mmol/L Normal 3.5-5.1 [facility] Comment on above: Performed By: #### B MP #### [facility] [address] [address] [address] Shine Del Rosario Sodium [Moles/Vol] 128 mmol/L Critically low 136-145 Th [facility] Comment on above: Performed By: #### B MP #### [facility] [address] [address] [address] Shine Del Rosario Urea nitrogen [Mass/Vol] 7.0 mg/dL Normal 7.0-18.0 [facility] Comment on above: Performed By: #### B MP #### [facility] [address] [address] [address] Shine Del Rosario Urea nitrogen/Creatinine [Mass ratio] 10.8 mg/mg Normal [facility] Comment on above: Performed By: #### B MP #### [facility] [address] [place] [address] Dr. Shine Del Rosario XR CHEST 2 [...] BOB TATUM Date: 2021-09-27 20:21 Normal [facility] CBC AUTO DIFFon 09-23-2021 BASO # 0.1 103/ul Normal 0.0-0.1 [facility] Comment on above: Performed By: #### P TT, PT #### [facility] [address] [place] [address] Dr. Shine Del Rosario Basophils/100 WBC (Bld) 0.8 % Normal 0.2-2.0 [facility] Comment on above: Performed By: #### P TT, PT #### [facility] [address] [place] [address] Dr. Shine Del Rosario EO # 0.2 103/ul Normal 0.0-0.7 [facility] Comment on above: Performed By: #### P TT, PT #### [facility] [address] [place] [address] Dr. Shine Del Rosario Eosinophils/100 WBC (Bld) 3.2 % Normal 0.9-7.0 [facility] Comment on above: Performed By: #### P TT, PT #### [facility] [address] [place] [address] Dr. Shine Del Rosario Erythrocyte distribution width (RBC) [Ratio] 12.4 % Normal 11.0-15.0 [facility] Comment on above: Performed By: #### P TT, PT #### [facility] [address] [place] [address] Dr. Shine Del Rosario Hematocrit (Bld) [Volume fraction] 28.8 % Critically low 36.0-48.0 [facility] Comment on above: Performed By: #### P TT, PT #### [facility] [address] [place] [address] Dr. Shine Del Rosario Hemoglobin (Bld) [Mass/Vol] 9.8 g/dL Critically low 12.0-16.0 [facility] Comment on above: Performed By: #### P TT, PT #### [facility] [address] [place] [address] Dr. Shine Del Rosario IG # 0.03 10e3/ul Normal 0.00-0.03 [facility] Comment on above: Performed By: #### P TT, PT #### [facility] [address] [place] [address] Dr. Shine Del Rosario IG % 0.4 % Normal 0.0-0.5 [facility] Comment on above: Performed By: #### P TT, PT #### [facility] [address] [place] [address] Dr. Shine Del Rosario LYMPH # 1.4 103/ul Normal 1.2-3.8 [facility] Comment on above: Performed By: #### P TT, PT #### [facility] [address] [place] [address] Dr. Shine Del Rosario Lymphocytes/100 WBC (Bld) 19.5 % Critically low 20.5-60.0 [facility] Comment on above: Performed By: #### P TT, PT #### [facility] [address] [place] [address] Dr. Shine Del Rosario MANUAL DIFF REQ NO Normal [facility] Comment on above: Performed By: #### P TT, PT #### [facility] [address] [place] [address] Dr. Shine Del Rosario MCH (RBC) [Entitic mass] 32.0 pg Normal 26.7-34.0 [facility] Comment on above: Performed By: #### P TT, PT #### [facility] [address] [place] [address] Dr. Shine Del Rosario MCHC (RBC) [Mass/Vol] 34.0 g/dL Normal 29.9-35.2 [facility] Comment on above: Performed By: #### P TT, PT #### [facility] [address] [place] [address] Dr. Shine Del Rosario MCV (RBC) [Entitic vol] 94.1 fL Normal 81.0-99.0 [facility] Comment on above: Performed By: #### P TT, PT #### [facility] [address] [place] [address] Dr. Shine Del Rosario MONO # 0.8 103/ul Normal 0.3-0.8 [facility] Comment on above: Performed By: #### P TT, PT #### [facility] [address] [place] [address] Dr. Shine Del Rosario Monocytes/100 WBC (Bld) 10.9 % Normal 1.7-12.0 [facility] Comment on above: Performed By: #### P TT, PT #### [facility] [address] [place] [address] Dr. Shine Del Rosario NEUT # 4.7 103/ul Normal 1.4-6.5 [facility] Comment on above: Performed By: #### P TT, PT #### [facility] [address] [place] [address] Dr. Shine Del Rosario Neutrophils/100 WBC (Bld) 65.2 % Normal 43.0-75.0 [facility] Comment on above: Performed By: #### P TT, PT #### [facility] [address] [address] [address] Shine Del Rosario Platelet mean volume (Bld) [Entitic vol] 8.8 fL Critically low 9.5-13.5 [facility] Comment on above: Performed By: #### P TT, PT #### [facility] [address] [place] [address] Dr. Shine Del Rosario PLT 613 103/ul Critically high 150-450 [facility] Comment on above: Performed By: #### P TT, PT #### [facility] [address] [place] [address] Dr. Shine Del Rosario RBC 3.06 106/ul Critically low 4.20-5.40 [facility] Comment on above: Performed By: #### P TT, PT #### [facility] [address] [place] [address] Dr. Shine Del Rosario WBC 7.1 103/ul Normal 4.0-11.0 [facility] Comment on above: Performed By: #### P TT, PT #### [facility] [address] [place] [address] Dr. Shine Del Rosario PROF CHEM 8 (BAS METB)on Anion gap [Moles/Vol] 13.6 mmol/L Normal [facility] Comment on above: Performed By: #### P TT, PT #### [facility] [address] [place] [address] Dr. Shine Del Rosario Calcium [Mass/Vol] 9.0 mg/dL Normal 8.5-10.1 [facility] Comment on above: Performed By: #### P TT, PT #### [facility] [address] [place] [address] Dr. Shine Del Rosario Chloride [Moles/Vol] 89 mmol/L Critically low 98-107 [facility] Comment on above: Performed By: #### P TT, PT #### [facility] [address] [place] [address] Dr. Shine Del Rosario CO2 [Moles/Vol] 23.6 mmol/L Normal 21.0-32.0 [facility] Comment on above: Performed By: #### P TT, PT #### [facility] [address] [address] [address] Shine Del Rosario Creatinine [Mass/Vol] 0.63 mg/dL Normal 0.55-1.02 [facility] Comment on above: Performed By: #### P TT, PT #### [facility] [address] [address] [address] Shine Del Rosario EGFR-AF [place] RICAN >60 Normal >=60 [facility] Comment on above: Performed By: #### P TT, PT #### [facility] [address] [address] [address] Shine Del Rosario EGFR-NON AF [place] R[place] >60 Normal >=60 [facility] Comment on above: Performed By: #### P TT, PT #### [facility] [address] [address] [address] Shine Del Rosario Glucose [Mass/Vol] 116 mg/dL Critically high 74-106 [facility] Comment on above: Performed By: #### P TT, PT #### [facility] [address] [address] [address] Shine Del Rosario Potassium [Moles/Vol] 3.2 mmol/L Critically low 3.5-5.1 [facility] Comment on above: Performed By: #### P TT, PT #### [facility] [address] [address] [address] Shine Del Rosario Sodium [Moles/Vol] 123 mmol/L Critically low 136-145 Th [facility] Comment on above: Performed By: #### P TT, PT #### [facility] [address] [address] [address] Shine Del Rosario Urea nitrogen [Mass/Vol] 7.0 mg/dL Normal 7.0-18.0 [facility] Comment on above: Performed By: #### P TT, PT #### [facility] [address] [address] [address] Shine Del Rosario Urea nitrogen/Creatinine [Mass ratio] 11.1 mg/mg Normal [facility] Comment on above: Performed By: #### P TT, PT #### [facility] [address], [place] [address] Dr. Shine Del Rosario [id number] PHENOTYP INGon 09-12-2021 [id number] , Serum 239 mg/dL Critically high 101-187 [facility] Comment on above: Result Comment: Perf ormed at: CB Performed By: #### P TT, PT #### [facility] [id number] Shine Del Rosario Phenotype (PI) MM Normal [facility] Comment on above: Result Comment: Phen [...] Performed By: #### P TT, PT #### [facility] [address] [place] [id number] STROKE HEAD [...] HOLLI FRANK Date: 2021-09-12 00:13 Normal [facility] CBC AUTO DIFFon 09-11-2021 BASO # 0.1 103/ul Normal 0.0-0.1 [facility] Comment on above: Performed By: #### B MP #### [facility] [address] [address] [address] Shine Del Rosario Basophils/100 WBC (Bld) 0.8 % Normal 0.2-2.0 [facility] Comment on above: Performed By: #### B MP #### [facility] [address] [address] [address] Shine Del Rosario EO # 0.6 103/ul Normal 0.0-0.7 [facility] Comment on above: Performed By: #### B MP #### [facility] [address] [address] [address] Shine Del Rosario Eosinophils/100 WBC (Bld) 4.9 % Normal 0.9-7.0 [facility] Comment on above: Performed By: #### B MP #### [facility] [address] [address] [address] Shine Del Rosario Erythrocyte distribution width (RBC) [Ratio] 13.9 % Normal 11.0-15.0 [facility] Comment on above: Performed By: #### B MP #### [facility] [address] [address] [address] Shine Del Rosario Hematocrit (Bld) [Volume fraction] 25.6 % Critically low 36.0-48.0 [facility] Comment on above: Performed By: #### B MP #### [facility] [address] [address] [address] Shine Del Rosario Hemoglobin (Bld) [Mass/Vol] 7.8 g/dL Critically low 12.0-16.0 [facility] Comment on above: Performed By: #### B MP #### [facility] [address] [place] [address] Dr. Shine Del Rosario IG # 0.67 10e3/ul Critically high 0.00-0.03 [facility] Comment on above: Performed By: #### B MP #### [facility] [address] [place] [address] Dr. Shine Del Rosario IG % 5.7 % Critically high 0.0-0.5 [facility] Comment on above: Performed By: #### B MP #### [facility] [address] [place] [address] Dr. Shine Del Rosario LYMPH # 1.6 103/ul Normal 1.2-3.8 [facility] Comment on above: Performed By: #### B MP #### [facility] [address] [place] [address] Dr. Shine Del Rosario Lymphocytes/100 WBC (Bld) 14.0 % Critically low 20.5-60.0 [facility] Comment on above: Performed By: #### B MP #### [facility] [address] [place] [address] Dr. Shine Del Rosario MANUAL DIFF REQ NO Normal [facility] Comment on above: Performed By: #### B MP #### [facility] [address] [place] [address] Dr. Shine Del Rosario MCH (RBC) [Entitic mass] 32.1 pg Normal 26.7-34.0 [facility] Comment on above: Performed By: #### B MP #### [facility] [address] [place] [address] Dr. Shine Del Rosario MCHC (RBC) [Mass/Vol] 30.5 g/dL Normal 29.9-35.2 [facility] Comment on above: Performed By: #### B MP #### [facility] [address] [place] [address] Dr. Shine Del Rosario MCV (RBC) [Entitic vol] 105.3 fL Critically high 81.0-99.0 [facility] Comment on above: Performed By: #### B MP #### [facility] [address] [address] [address] Shine Del Rosario MONO # 1.3 103/ul Critically high 0.3-0.8 [facility] Comment on above: Performed By: #### B MP #### [facility] [address] [address] [address] Shine Del Rosario Monocytes/100 WBC (Bld) 11.1 % Normal 1.7-12.0 [facility] Comment on above: Performed By: #### B MP #### [facility] [address] [place] [address] Dr. Shine Del Rosario NEUT # 7.5 103/ul Critically high 1.4-6.5 [facility] Comment on above: Performed By: #### B MP #### [facility] [address] [place] [address] Dr. Shine Del Rosario Neutrophils/100 WBC (Bld) 63.5 % Normal 43.0-75.0 [facility] Comment on above: Performed By: #### B MP #### [facility] [address] [place] [address] Dr. Shine Del Rosario Platelet mean volume (Bld) [Entitic vol] 8.5 fL Critically low 9.5-13.5 [facility] Comment on above: Performed By: #### B MP #### [facility] [address] [place] [address] Dr. Shine Del Rosario PLT 528 103/ul Critically high 150-450 [facility] Comment on above: Performed By: #### B MP #### [facility] [address] [place] [address] Dr. Shine Del Rosario RBC 2.43 106/ul Critically low 4.20-5.40 [facility] Comment on above: Performed By: #### B MP #### [facility] [address] [place] [address] Dr. Shine Del Rosario WBC 11.7 103/ul Critically high 4.0-11.0 [facility] Comment on above: Performed By: #### B MP #### [facility] [address] [address] [address] Shine Del Rosario PROF CHEM 8 (BAS METB)on Anion gap [Moles/Vol] 12.7 mmol/L Normal [facility] Comment on above: Performed By: #### P HVEN #### [facility] [address] [address] [address] Shine Del Rosario Calcium [Mass/Vol] 8.4 mg/dL Critically low 8.5-10.1 Th [facility] Comment on above: Performed By: #### P HVEN #### [facility] [address] [address] [address] Shine Del Rosario Chloride [Moles/Vol] 102 mmol/L Normal 98-107 [facility] Comment on above: Performed By: #### P HVEN #### [facility] [address] [place] [address] Dr. Shine Del Rosario CO2 [Moles/Vol] 24.7 mmol/L Normal 21.0-32.0 [facility] Comment on above: Performed By: #### P HVEN #### [facility] [address] [place] [address] Dr. Shine Del Rosario Creatinine [Mass/Vol] 0.58 mg/dL Normal 0.55-1.02 [facility] Comment on above: Performed By: #### P HVEN #### [facility] [address] [place] [address] Dr. Shine Del Rosario EGFR-AF COSTA RICAN >60 Normal >=60 [facility] Comment on above: Performed By: #### P HVEN #### [facility] [address] [place] [address] Dr. Shine Del Rosario EGFR-NON AF COSTA RICAN >60 Normal >=60 [facility] Comment on above: Performed By: #### P HVEN #### [facility] [address] [place] [address] Dr. Shine Del Rosario Glucose [Mass/Vol] 95 mg/dL Normal 74-106 [facility] Comment on above: Performed By: #### P HVEN #### [facility] [address] [place] [address] Dr. Shine Del Rosario Potassium [Moles/Vol] 4.4 mmol/L Normal 3.5-5.1 [facility] Comment on above: Performed By: #### P HVEN #### [facility] [address] [address] [address] Shine Del Rosario Sodium [Moles/Vol] 135 mmol/L Critically low 136-145 Th e [facility] Comment on above: Performed By: #### P HVEN #### [facility] [address] [address] [address] Shine Del Rosario Urea nitrogen [Mass/Vol] 7.0 mg/dL Normal 7.0-18.0 [facility] Comment on above: Performed By: #### P HVEN #### [facility] [address] [place] [address] Dr. Shine Del Rosario Urea nitrogen/Creatinine [Mass ratio] 12.1 mg/mg Normal [facility] Comment on above: Performed By: #### P HVEN #### [facility] [address] [place] [address] Dr. Shine Del Rosario SPUTUM CULTUREon 09-11-2021 Epithelial cells LM Ql (Urine sed) None seen Normal [facility] Comment on above: Performed By: #### P TT, PT #### [facility] [address] [place] [address] Dr. Shine Del Rosario Gram Stain Evaluation Comment Normal [facility] Comment on above: Result Comment: This specimen is of good quality and is acceptable for routine bacterial culture. Performed By: #### P TT, PT #### [facility] [address] [place] [address] Dr. Shine Del Rosario Lower Respiratory Culture Final report Abnormal [facility] Comment on above: Performed By: #### P TT, PT #### [facility] [address] [place] [address] Dr. Shine Del Rosario Result 1 Comment Abnormal [facility] Comment on above: Result Comment: Mode rate number of gram positive cocci. Performed By: #### P TT, PT #### [facility] [address] [place] [address] Dr. Shine Del Rosario Result Comment: Loza xella (branhamella) catarrhalis Heavy growth Beta lactamase positive. Result 2 Normal [facility] Comment on above: Performed By: #### P TT, PT #### [facility] [address] [place] [address] Dr. Shine Del Rosario Result 2 Comment Normal [facility] Comment on above: Result Comment: Rout ine respiratory cruzito Moderate growth Performed By: #### P TT, PT #### [facility] [address] [place] [address] Dr. Shine Del Rosario Result 3 Normal [facility] Comment on above: Performed By: #### P TT, PT #### [facility] [address] [place] [address] Dr. Shine Del Rosario Result 4 Normal [facility] Comment on above: Performed By: #### P TT, PT #### [facility] [address] [place] [address] Dr. Shine Del Rosario White Blood Cells Moderate Normal [facility] Comment on above: Performed By: #### P TT, PT #### [facility] [address] [place] [address] Dr. Shine Del Rosario CBC AUTO DIFFon 09-10-2021 BASO # 0.1 103/ul Normal 0.0-0.1 [facility] Comment on above: Performed By: #### P TT, PT #### [facility] [address] [place] [address] Dr. Shine Del Rosario Basophils/100 WBC (Bld) 0.9 % Normal 0.2-2.0 [facility] Comment on above: Performed By: #### P TT, PT #### [facility] [address] [place] [address] Dr. Shine Del Rosario EO # 0.5 103/ul Normal 0.0-0.7 [facility] Comment on above: Performed By: #### P TT, PT #### [facility] [address] [place] [address] Dr. Shine Del Rosario Eosinophils/100 WBC (Bld) 4.6 % Normal 0.9-7.0 [facility] Comment on above: Performed By: #### P TT, PT #### [facility] [address] [place] [address] Dr. Shine Del Rosario Erythrocyte distribution width (RBC) [Ratio] 13.8 % Normal 11.0-15.0 [facility] Comment on above: Performed By: #### P TT, PT #### [facility] [address] [place] [address] Dr. Shine Del Rosario Hematocrit (Bld) [Volume fraction] 24.2 % Critically low 36.0-48.0 [facility] Comment on above: Performed By: #### P TT, PT #### [facility] [address] [place] [address] Dr. Shine Del Rosario Hemoglobin (Bld) [Mass/Vol] 7.5 g/dL Critically low 12.0-16.0 [facility] Comment on above: Performed By: #### P TT, PT #### [facility] [address] [place] [address] Dr. Shine Del Rosario IG # 0.60 10e3/ul Critically high 0.00-0.03 [facility] Comment on above: Performed By: #### P TT, PT #### [facility] [address] [place] [address] Dr. Shine Del Rosario IG % 5.4 % Critically high 0.0-0.5 [facility] Comment on above: Performed By: #### P TT, PT #### [facility] [address] [place] [address] Dr. Shine Del Rosario LYMPH # 1.6 103/ul Normal 1.2-3.8 [facility] Comment on above: Performed By: #### P TT, PT #### [facility] [address] [place] [address] Dr. Shine Del Rosario Lymphocytes/100 WBC (Bld) 14.3 % Critically low 20.5-60.0 [facility] Comment on above: Performed By: #### P TT, PT #### [facility] [address] [place] [address] Dr. Shine Del Rosario MANUAL DIFF REQ NO Normal [facility] Comment on above: Performed By: #### P TT, PT #### [facility] [address] [place] [address] Dr. Shine Del Rosario MCH (RBC) [Entitic mass] 32.2 pg Normal 26.7-34.0 [facility] Comment on above: Performed By: #### P TT, PT #### [facility] [address] [place] [address] Dr. Shine Del Rosario MCHC (RBC) [Mass/Vol] 31.0 g/dL Normal 29.9-35.2 [facility] Comment on above: Performed By: #### P TT, PT #### [facility] [address] [place] [address] Dr. Shine Del Rosario MCV (RBC) [Entitic vol] 103.9 fL Critically high 81.0-99.0 [facility] Comment on above: Performed By: #### P TT, PT #### [facility] [address] [place] [address] Dr. Shine Del Rosario MONO # 1.4 103/ul Critically high 0.3-0.8 [facility] Comment on above: Performed By: #### P TT, PT #### [facility] [address] [place] [address] Dr. Shine Del Rosario Monocytes/100 WBC (Bld) 12.3 % Critically high 1.7-12.0 [facility] Comment on above: Performed By: #### P TT, PT #### [facility] [address] [place] [address] Dr. Shine Del Rosario NEUT # 7.0 103/ul Critically high 1.4-6.5 [facility] Comment on above: Performed By: #### P TT, PT #### [facility] [address] [place] [address] Dr. Shine Del Rosario Neutrophils/100 WBC (Bld) 62.5 % Normal 43.0-75.0 [facility] Comment on above: Performed By: #### P TT, PT #### [facility] [address] [place] [address] Dr. Shine Del Rosario Platelet mean volume (Bld) [Entitic vol] 8.7 fL Critically low 9.5-13.5 [facility] Comment on above: Performed By: #### P TT, PT #### [facility] [address] [place] [address] Dr. Shine Del Rosario PLT 476 103/ul Critically high 150-450 [facility] Comment on above: Performed By: #### P TT, PT #### [facility] [address] [place] [address] Dr. Shine Del Rosario RBC 2.33 106/ul Critically low 4.20-5.40 [facility] Comment on above: Performed By: #### P TT, PT #### [facility] [address] [place] [address] Dr. Shine Del Rosario WBC 11.2 103/ul Critically high 4.0-11.0 [facility] Comment on above: Performed By: #### P TT, PT #### [facility] [address] [place] [address] Dr. Shine Del Rosario PREALBUMINon 09-10-2021 Prealbumin [Mass/Vol] 13 mg/dL Normal 10-36 [facility] Comment on above: Performed By: #### B MP #### [facility] [address] [place] [address] Dr. Shine Del Rosario PROF CHEM 8 (BAS METB)on Anion gap [Moles/Vol] 12.7 mmol/L Normal [facility] Comment on above: Performed By: #### L IVER #### [facility] [address] [place] [address] Dr. Shine Del Rosario Calcium [Mass/Vol] 8.2 mg/dL Critically low 8.5-10.1 Th [facility] Comment on above: Performed By: #### L IVER #### [facility] [address] [place] [address] Dr. Shine Del Rosario Chloride [Moles/Vol] 100 mmol/L Normal 98-107 [facility] Comment on above: Performed By: #### L IVER #### [facility] [address] [address] [address] Shine Del Rosario CO2 [Moles/Vol] 25.8 mmol/L Normal 21.0-32.0 [facility] Comment on above: Performed By: #### L IVER #### [facility] [address] [place] [address] Dr. Shine Del Rosario Creatinine [Mass/Vol] 0.57 mg/dL Normal 0.55-1.02 [facility] Comment on above: Performed By: #### L IVER #### [facility] [address] [place] [address] Dr. Shine Del Rosario EGFR-AF COSTA RICAN >60 Normal >=60 [facility] Comment on above: Performed By: #### L IVER #### [facility] [address] [place] [address] Dr. Shine Del Rosario EGFR-NON AF [place] >60 Normal >=60 [facility] Comment on above: Performed By: #### L IVER #### [facility] [address] [place] [address] Dr. Shine Del Rosario Glucose [Mass/Vol] 92 mg/dL Normal 74-106 [facility] Comment on above: Performed By: #### L IVER #### [facility] [address] [place] [address] Dr. Shine Del Rosario Potassium [Moles/Vol] 4.5 mmol/L Normal 3.5-5.1 [facility] Comment on above: Performed By: #### L IVER #### [facility] [address] [place] [address] Dr. Shine Del Rosario Sodium [Moles/Vol] 134 mmol/L Critically low 136-145 Th [facility] Comment on above: Performed By: #### L IVER #### [facility] [address] [place] [address] Dr. Shine Del Rosario Urea nitrogen [Mass/Vol] 10.0 mg/dL Normal 7.0-18.0 [facility] Comment on above: Performed By: #### L IVER #### [facility] [address] [place] [address] Dr. Shine Del Rosario Urea nitrogen/Creatinine [Mass ratio] 17.5 mg/mg Normal [facility] Comment on above: Performed By: #### L AYDEEER #### [facility] [address] [place] [address] Dr. Shine Del Rosario CBC W MANUAL DIFFon 09-10-19 22 ATYPICAL LYMPH # Normal [facility] Comment on above: Performed By: #### B MP #### [facility] [address] [place] [address] Dr. Shine Del Rosario ATYPICAL LYMPH % Normal [facility] Comment on above: Performed By: #### B MP #### [facility] [address] [place] [address] Dr. Shine Del Rosario BAND # Normal 0.0-0.3 [facility] Comment on above: Performed By: #### B MP #### [facility] [address] [place] [address] Dr. Shine Del Rosario BAND % Normal 0-5 [facility] Comment on above: Performed By: #### B MP #### [facility] [address] [place] [address] Dr. Shine Del Rosario BASOM # 0.00 103/ul Normal 0.00-0.10 [facility] Comment on above: Performed By: #### B MP #### [facility] [address] [place] [address] Dr. Shine Del Rosario BASOM % 0.0 % Critically low 0.2-2.0 [facility] Comment on above: Performed By: #### B MP #### [facility] [address] [place] [address] Dr. Shine Del Rosario BLAST # Normal [facility] Comment on above: Performed By: #### B MP #### [facility] [address] [place] [address] Dr. Shine Del Rosario BLAST % Normal [facility] Comment on above: Performed By: #### B MP #### [facility] [address] [place] [address] Dr. Shine Del Rosario CORRECTED WBC Normal 4.0-11.0 [facility] Comment on above: Performed By: #### B MP #### [facility] [address] [address] [address] Shine Del Rosario EOS # 1.34 103/ul Critically high 0.00-0.70 [facility] Comment on above: Performed By: #### B MP #### [facility] [address] [place] [address] Dr. Shine Del Rosario EOS% 11.0 % Critically high 0.9-7.0 [facility] Comment on above: Performed By: #### B MP #### [facility] [address] [place] [address] Dr. Shine Del Rosario HCT 23.6 % Critically low 36.0-48.0 [facility] Comment on above: Performed By: #### B MP #### [facility] [address] [place] [address] Dr. Shine Del Rosario HGB 7.6 g/dl Critically low 12.0-16.0 [facility] Comment on above: Performed By: #### B MP #### [facility] [address] [place] [address] Dr. Shine Del Rosario LYMPHM # 2.32 103/ul Normal 1.20-3.80 [facility] Comment on above: Performed By: #### B MP #### [facility] [address] [place] [address] Dr. Shine Del Rosario LYMPHM% 19.0 % Critically low 20.5-60.0 [facility] Comment on above: Performed By: #### B MP #### [facility] [address] [place] [address] Dr. Shine Del Rosario MCH 32.6 pg Normal 26.7-34.0 [facility] Comment on above: Performed By: #### B MP #### [facility] [address] [place] [address] Dr. Shine Del Rosario MCHC 32.2 g/dl Normal 29.9-35.2 [facility] Comment on above: Performed By: #### B MP #### [facility] [address] [place] [address] Dr. Shine Del Rosario MCV 101.3 fL Critically high 81.0-99.0 [facility] Comment on above: Performed By: #### B MP #### [facility] [address] [place] [address] Dr. Shine Del Rosario METAMYELOCYTE # Normal [facility] Comment on above: Performed By: #### B MP #### [facility] [address] [place] [address] Dr. Shine Del Rosario METAMYELOCYTE % Normal [facility] Comment on above: Performed By: #### B MP #### [facility] [address] [place] [address] Dr. Shine Del Rosario MONOM# 1.83 103/ul Critically high 0.30-0.80 [facility] Comment on above: Performed By: #### B MP #### [facility] [address] [place] [address] Dr. Shine Del Rosario MONOM% 15.0 % Critically high 1.7-12.0 [facility] Comment on above: Performed By: #### B MP #### [facility] [address] [place] [address] Dr. Shine Del Rosario MPV 8.6 fL Critically low 9.5-13.5 [facility] Comment on above: Performed By: #### B MP #### [facility] [address] [place] [address] Dr. Shine Del Rosario MYELOCYTE # Normal [facility] Comment on above: Performed By: #### B MP #### [facility] [address] [place] [address] Dr. Shine Del Rosario MYELOCYTE % Normal [facility] [facility] Comment on above: Performed By: #### B MP #### [facility] [address] [place] [address] Dr. Shine Del Rosario NRBC Normal [facility] Comment on above: Performed By: #### B MP #### [facility] [address] [place] [address] Dr. Shine Del Rosario PLT 434 103/ul Normal 150-450 [facility] Comment on above: Performed By: #### B MP #### [facility] [address] [place] [address] Dr. Shine Del Rosario RBC 2.33 106/ul Critically low 4.20-5.40 [facility] Comment on above: Performed By: #### B MP #### [facility] [address] [place] [address] Dr. Shine Del Rosario RDW 13.3 % Normal 11.0-15.0 [facility] Comment on above: Performed By: #### B MP #### [facility] [address] [place] [address] Dr. Shine Del Rosario SEG # 6.71 103/ul Critically high 1.40-6.50 [facility] Comment on above: Performed By: #### B MP #### [facility] [address] [place] [address] Dr. Shine Del Rosario SEG % 55.0 % Normal 43.0-75.0 [facility] Comment on above: Performed By: #### B MP #### [facility] [address] [place] [address] Dr. Shine Del Rosario WBC 12.2 103/ul Critically high 4.0-11.0 [facility] Comment on above: Performed By: #### B MP #### [facility] [address] [place] [address] Dr. Shine Del Rosario PREALBUMINon 09-09-2021 Procalcitonin WRORD Normal [facility] Comment on above: Result Comment: Test not [...] 09-09-2021 Performed By: #### B MP #### [facility] [address] [place] [address] Dr. Shine Del Rosario PROF CHEM 8 (BAS METB)on Anion gap [Moles/Vol] 10.4 mmol/L Normal [facility] Comment on above: Performed By: #### P HVEN #### [facility] [address] [place] [address] Dr. Shine Del Rosario Calcium [Mass/Vol] 8.2 mg/dL Critically low 8.5-10.1 Th [facility] Comment on above: Performed By: #### P HVEN #### [facility] [address] [place] [address] Dr. Shine Del Rosario Chloride [Moles/Vol] 100 mmol/L Normal 98-107 [facility] Comment on above: Performed By: #### P HVEN #### [facility] [address] [place] [address] Dr. Shine Del Rosario CO2 [Moles/Vol] 23.9 mmol/L Normal 21.0-32.0 [facility] Comment on above: Performed By: #### P HVEN #### [facility] [address] [place] [address] Dr. Shine Del Rosario Creatinine [Mass/Vol] 0.84 mg/dL Normal 0.55-1.02 [facility] Comment on above: Performed By: #### P HVEN #### [facility] [address] [place] [address] Dr. Shine Del Rosario EGFR-AF COSTA RICAN >60 Normal >=60 [facility] Comment on above: Performed By: #### P HVEN #### [facility] [address] [place] [address] Dr. Shine Del Rosario EGFR-NON AF [place] R[place] >60 Normal >=60 [facility] Comment on above: Performed By: #### P HVEN #### [facility] [address] [address] [address] Shine Del Rosario Glucose [Mass/Vol] 101 mg/dL Normal 74-106 [facility] Comment on above: Performed By: #### P HVEN #### [facility] [address] [address] [address] Shine Del Rosario Potassium [Moles/Vol] 4.3 mmol/L Normal 3.5-5.1 [facility] Comment on above: Performed By: #### P HVEN #### [facility] [address] [address] [address] Shine Del Rosario Sodium [Moles/Vol] 130 mmol/L Critically low 136-145 Th [facility] Comment on above: Performed By: #### P HVEN #### [facility] [address] [place] [address] Dr. Shine Del Rosario Urea nitrogen [Mass/Vol] 24.0 mg/dL Critically high 7.0-18.0 [facility] Comment on above: Performed By: #### P HVEN #### [facility] [address] [place] [address] Dr. Shine Del Rosario Urea nitrogen/Creatinine [Mass ratio] 28.6 mg/mg Normal [facility] Comment on above: Performed By: #### P HVEN #### [facility] [address] [place] [address] Dr. Shine Del Rosario BNPon 09-08-2021 Natriuretic peptide B (Bld) [Mass/Vol] 358.0 pg/mL Normal <=900.0 [facility] Comment on above: Performed By: #### P TT, PT #### [facility] [address] [address] [address] Shine Del Rosario CBC W MANUAL DIFFon 09-09-19 ATYPICAL LYMPH # Normal [facility] Comment on above: Performed By: #### P TT, PT #### [facility] [address] [address] [address] Shine Del Rosario ATYPICAL LYMPH % Normal [facility] Comment on above: Performed By: #### P TT, PT #### [facility] [address] [place] [address] Dr. Shine Del Rosario BAND # 0.6 103/ul Critically high 0.0-0.3 [facility] Comment on above: Performed By: #### P TT, PT #### [facility] [address] [place] [address] Dr. Shine Del Rosario BAND % 5 % Normal 0-5 [facility] Comment on above: Performed By: #### P TT, PT #### [facility] [address] [place] [address] Dr. Shine Del Rosario BASOM # 0.00 103/ul Normal 0.00-0.10 [facility] Comment on above: Performed By: #### P TT, PT #### [facility] [address] [place] [address] Dr. Shine Del Rosario BASOM % 0.0 % Critically low 0.2-2.0 [facility] Comment on above: Performed By: #### P TT, PT #### [facility] [address] [place] [address] Dr. Shine Del Rosario BLAST # Normal [facility] Comment on above: Performed By: #### P TT, PT #### [facility] [address] [place] [address] Dr. Shine Del Rosario BLAST % Normal [facility] Comment on above: Performed By: #### P TT, PT #### [facility] [address] [place] [address] Dr. Shine Del Rosario CORRECTED WBC Normal 4.0-11.0 [facility] Comment on above: Performed By: #### P TT, PT #### [facility] [address] [place] [address] Dr. Shine Del Rosario EOS # 0.60 103/ul Normal 0.00-0.70 [facility] Comment on above: Performed By: #### P TT, PT #### [facility] [address] [place] [address] Dr. Shine eDl Rosario EOS% 5.0 % Normal 0.9-7.0 [facility] Comment on above: Performed By: #### P TT, PT #### [facility] [address] [address] [address] Shine Del Rosario HCT 25.4 % Critically low 36.0-48.0 [facility] Comment on above: Performed By: #### P TT, PT #### [facility] [address] [address] [address] Shine Del Rosario HGB 7.9 g/dl Critically low 12.0-16.0 [facility] Comment on above: Performed By: #### P TT, PT #### [facility] [address] [address] [address] Shine Del Rosario LYMPHM # 1.44 103/ul Normal 1.20-3.80 [facility] Comment on above: Performed By: #### P TT, PT #### [facility] [address] [place] [address] Dr. Shine Del Rosario LYMPHM% 12.0 % Critically low 20.5-60.0 [facility] Comment on above: Performed By: #### P TT, PT #### [facility] [address] [place] [address] Dr. Shine Del Rosario MCH 32.0 pg Normal 26.7-34.0 [facility] Comment on above: Performed By: #### P TT, PT #### [facility] [address] [place] [address] Dr. Shine Del Rosario MCHC 31.1 g/dl Normal 29.9-35.2 [facility] Comment on above: Performed By: #### P TT, PT #### [facility] [address] [place] [address] Dr. Shine Del Rosario MCV 102.8 fL Critically high 81.0-99.0 [facility] Comment on above: Performed By: #### P TT, PT #### [facility] [address] [place] [address] Dr. Shine Del Rosario METAMYELOCYTE # Normal [facility] Comment on above: Performed By: #### P TT, PT #### [facility] [address] [place] [address] Dr. Shine Del Rosario METAMYELOCYTE % Normal [facility] Comment on above: Performed By: #### P TT, PT #### [facility] [address] [place] [address] Dr. Shine Del Rosario MONOM# 1.80 103/ul Critically high 0.30-0.80 [facility] Comment on above: Performed By: #### P TT, PT #### [facility] [address] [place] [address] Dr. Shine Del Rosario MONOM% 15.0 % Critically high 1.7-12.0 [facility] Comment on above: Performed By: #### P TT, PT #### [facility] [address] [place] [address] Dr. Shine Del Rosario MPV 8.9 fL Critically low 9.5-13.5 [facility] Comment on above: Performed By: #### P TT, PT #### [facility] [address] [place] [address] Dr. Shine Del Rosario MYELOCYTE # Normal [facility] Comment on above: Performed By: #### P TT, PT #### [facility] [address] [place] [address] Dr. Shine Del Rosario MYELOCYTE % Normal [facility] Comment on above: Performed By: #### P TT, PT #### [facility] [address] [place] [address] Dr. Shine Del Rosario NRBC Normal [facility] Comment on above: Performed By: #### P TT, PT #### [facility] [address] [place] [address] Dr. Shine Del Rosario PLT 428 103/ul Normal 150-450 [facility] Comment on above: Performed By: #### P TT, PT #### [facility] [address] [place] [address] Dr. Shine Del Rosario RBC 2.47 106/ul Critically low 4.20-5.40 [facility] Comment on above: Performed By: #### P TT, PT #### [facility] [address] [place] [address] Dr. Shine Del Rosario RDW 13.2 % Normal 11.0-15.0 [facility] Comment on above: Performed By: #### P TT, PT #### [facility] [address] [address] [address] Shine Del Rosario SEG # 7.56 103/ul Critically high 1.40-6.50 [facility] Comment on above: Performed By: #### P TT, PT #### [facility] [address] [address] [address] Shine Del Rosario SEG % 63.0 % Normal 43.0-75.0 [facility] Comment on above: Performed By: #### P TT, PT #### [facility] [address] [address] [address] Shine Del Rosario WBC 12.0 103/ul Critically high 4.0-11.0 [facility] Comment on above: Performed By: #### P TT, PT #### [facility] [address] [place] [address] Dr. Shine Del Rosario CTA CHEST WO [...] by: BEBETO PUTNAM Date: 2021-09-08 11:25 Normal [facility] D-DIMERon 09-08-2021 D-DIMER 4.13 mg/L FEU Critically high 0.19-0.50 [facility] Comment on above: Performed By: #### P TT, PT #### [facility] [address] [address] [address] Shine Del Rosario D-DIMER COMMENTS SEE BELOW Normal [facility] Comment on above: Result Comment: Incr [...] Performed By: #### P TT, PT #### [facility] [address] [address] [address] Shine Del Rosario ECHOCARDIO M/2D COMPLETEon 0 09-08-2021 ECHOCARDIO M/2D COMPLETE Patient: CATHERINE ADAMSON Exam Date: 09/08/2021 : 1960 Gender:F Ordering : DR LENY MCCULLOUGH . Admission #: [id number] Family : DR XIMENA ASTUDILLO M.D. Order #: [id number] CLICK HERE TO VIEW EXAM ECHOCARDIOGRAM REPORT PROCEDURE: CARDIO PULMONARY ECHOCARDIO M/2D COMP INDICATIONS: Shortness of breath, h/o AR, PTCA, hypertension, COPD COMPARISON: None. DESCRIPTION: COMPLETE [...] Area(A2C): 16.50 cm2 Left Atrium Systolic Volume(A2C): 18891 mm3 Mitral Valve MV E to A [...] Garcia M.D. on 09/08/2021 at 14:24 Normal [facility] LIVER PROFILEon 09-08-2021 Albumin [Mass/Vol] 3.0 g/dL Critically low 3.4-5.0 Th [facility] Comment on above: Performed By: #### L IVER #### [facility] [address] [place] [address] Dr. Shine Del Rosario Albumin/Globulin [Mass ratio] 1.0 {ratio} Normal [facility] Comment on above: Performed By: #### L IVER #### [facility] [address] [place] [address] Dr. Shine Del Rosario ALP [Catalytic activity/Vol] 108 U/L Normal 46-116 [facility] Comment on above: Performed By: #### L IVER #### [facility] [address] [address] [address] Shine Del Rosario ALT [Catalytic activity/Vol] 52 U/L Normal 14-59 [facility] Comment on above: Performed By: #### L IVER #### [facility] [address] [address] [address] Shine Del Rosario AST [Catalytic activity/Vol] 50 U/L Critically high 15-37 [facility] Comment on above: Performed By: #### L IVER #### [facility] [address] [address] [address] Shine Del Rosario BILI, CONJUGATED 0.3 mg/dL Critically high 0.0-0.2 [facility] Comment on above: Performed By: #### L IVER #### [facility] [address] [address] [address] Shine Del Rosario Bilirubin [Mass/Vol] 0.9 mg/dL Normal 0.2-1.0 [facility] Comment on above: Performed By: #### L IVER #### [facility] [address] [address] [address] Shine Del Rosario Globulin (S) [Mass/Vol] 3.1 g/dL Normal [facility] Comment on above: Performed By: #### L IVER #### [facility] [address] [place] [address] Dr. Shine Del Rosario Protein [Mass/Vol] 6.1 g/dL Normal 6.1-8.2 [facility] Comment on above: Performed By: #### L IVER #### [facility] [address] [place] [address] Dr. Shine Del Rosario OCC BLD IMMUNO SCREENon 08-13 OCCULT BLOOD Negative Normal NEGATIVE [facility] Comment on above: Performed By: #### P TT, PT #### [facility] [address] [place] [address] Dr. Shine Del Rosario OSMOLALITY URINEon Osmolality, Urine 334 mOsmol/kg Normal [facility] Comment on above: Result Comment: 24 h r : 300 - 900 Random: 50 - 1400 After 12hr fluid restriction: >850 Performed By: #### B MP #### [facility] [address] [place] [address] Dr. Shine Del Rosario PROF CHEM 8 (BAS METB)on Anion gap [Moles/Vol] 13.7 mmol/L Normal [facility] Comment on above: Performed By: #### P HVEN #### [facility] [address] [place] [address] Dr. Shine Del Rosario Calcium [Mass/Vol] 8.6 mg/dL Normal 8.5-10.1 [facility] Comment on above: Performed By: #### P HVEN #### [facility] [address] [address] [address] Shine Del Rosario Chloride [Moles/Vol] 95 mmol/L Critically low 98-107 [facility] Comment on above: Performed By: #### P HVEN #### [facility] [address] [address] [address] Shine Del Rosario CO2 [Moles/Vol] 24.2 mmol/L Normal 21.0-32.0 [facility] Comment on above: Performed By: #### P HVEN #### [facility] [address] [place] [address] Dr. Shine Del Rosario Creatinine [Mass/Vol] 0.93 mg/dL Normal 0.55-1.02 [facility] Comment on above: Performed By: #### P HVEN #### [facility] [address] [place] [address] Dr. Shine Del Rosario EGFR-AF [place] >60 Normal >=60 [facility] Comment on above: Performed By: #### P HVEN #### [facility] [address] [place] [address] Dr. Shine Del Rosario EGFR-NON AF [place] >60 Normal >=60 [facility] Comment on above: Performed By: #### P HVEN #### [facility] [address] [place] [address] Dr. Shine Del Rosario Glucose [Mass/Vol] 122 mg/dL Critically high 74-106 [facility] Comment on above: Performed By: #### P HVEN #### [facility] [address] [place] [address] Dr. Shine Del Rosario Potassium [Moles/Vol] 4.7 mmol/L Normal 3.5-5.1 [facility] Comment on above: Performed By: #### P HVEN #### [facility] [address] [place] [address] Dr. Shine Del Rosario Sodium [Moles/Vol] 128 mmol/L Critically low 136-145 [facility] Comment on above: Performed By: #### P HVEN #### [facility] [address] [address] [address] Shine Del Rosario Urea nitrogen [Mass/Vol] 25.0 mg/dL Critically high 7.0-18.0 [facility] Comment on above: Performed By: #### P HVEN #### [facility] [address] [address] [address] Shine Del Rosario Urea nitrogen/Creatinine [Mass ratio] 26.8 mg/mg Normal [facility] Comment on above: Performed By: #### P HVEN #### [facility] [address] [address] [address] Shine Del Rosario Anion gap [Moles/Vol] 14.5 mmol/L Normal [facility] Comment on above: Performed By: #### B MP #### [facility] [address] [address] [address] Shine Del Rosario Calcium [Mass/Vol] 8.5 mg/dL Normal 8.5-10.1 [facility] Comment on above: Performed By: #### B MP #### [facility] [address] [address] [address] Shine Del Rosario Chloride [Moles/Vol] 94 mmol/L Critically low 98-107 [facility] Comment on above: Performed By: #### B MP #### [facility] [address] [address] [address] Shine Del Rosario CO2 [Moles/Vol] 22.1 mmol/L Normal 21.0-32.0 [facility] Comment on above: Performed By: #### B MP #### [facility] [address] [address] [address] Shine Del Rosario Creatinine [Mass/Vol] 1.42 mg/dL Critically high 0.55-1.02 [facility] Comment on above: Performed By: #### B MP #### [facility] [address] [address] [address] Shine Del Rosario EGFR-AF CO[place] RICAN 45 mL/min/1.73m2 Critically low >=60 [facility] Comment on above: Performed By: #### B MP #### [facility] [address] [address] [address] Shine Del Rosario EGFR-NON AF [place] 37 mL/min/1.73m2 Critically low >=60 [facility] Comment on above: Performed By: #### B MP #### [facility] [address] [address] [address] Shine Del Rosario Glucose [Mass/Vol] 123 mg/dL Critically high 74-[address] [facility] Comment on above: Performed By: #### B MP #### [facility] [address] [address] [address] Shine Del Rosario Potassium [Moles/Vol] 4.6 mmol/L Normal 3.5-5.1 [facility] Comment on above: Performed By: #### B MP #### [facility] [address] [place] [address] Dr. Shine Del Rosario Sodium [Moles/Vol] 126 mmol/L Critically low 136-145 Th [facility] Comment on above: Performed By: #### B MP #### [facility] [address] [address] [address] Shine Del Rosario Urea nitrogen [Mass/Vol] 28.0 mg/dL Critically high 7.0-18.0 [facility] Comment on above: Performed By: #### B MP #### [facility] [address] [place] [address] Dr. Shine Del Rosario Urea nitrogen/Creatinine [Mass ratio] 19.7 mg/mg Normal [facility] Comment on above: Performed By: #### B MP #### [facility] [address] [address] [address] Shine Del Rosario CBC W MANUAL DIFFon 09-08-19 22 ATYPICAL LYMPH # Normal [facility] Comment on above: Performed By: #### P TT, PT #### [facility] [address] [place] [address] Dr. Shine Del Rosario ATYPICAL LYMPH % Normal [facility] Comment on above: Performed By: #### P TT, PT #### [facility] [address] [place] [address] Dr. Shine Del Rosario BAND # 0.4 103/ul Critically high 0.0-0.3 [facility] Comment on above: Performed By: #### P TT, PT #### [facility] [address] [place] [address] Dr. Shine Del Rosario BAND % 3 % Normal 0-5 [facility] Comment on above: Performed By: #### P TT, PT #### [facility] [address] [place] [address] Dr. Shine Del Rosario BASOM # 0.00 103/ul Normal 0.00-0.10 [facility] Comment on above: Performed By: #### P TT, PT #### [facility] [address] [place] [address] Dr. Shine Del Rosario BASOM % 0.0 % Critically low 0.2-2.0 [facility] Comment on above: Performed By: #### P TT, PT #### [facility] [address] [place] [address] Dr. Shine Del Rosario BLAST # Normal [facility] Comment on above: Performed By: #### P TT, PT #### [facility] [address] [place] [address] Dr. Shine Del Rosario BLAST % Normal [facility] Comment on above: Performed By: #### P TT, PT #### [facility] [address] [place] [address] Dr. Shine Del Rosario CORRECTED WBC Normal 4.0-11.0 [facility] Comment on above: Performed By: #### P TT, PT #### [facility] [address] [place] [address] Dr. Shine Del Rosario EOS # 0.24 103/ul Normal 0.00-0.70 [facility] Comment on above: Performed By: #### P TT, PT #### [facility] [address] [place] [address] Dr. Shine Del Rosario EOS% 2.0 % Normal 0.9-7.0 [facility] Comment on above: Performed By: #### P TT, PT #### [facility] [address] [address] [address] Shine Del Rosario HCT 24.9 % Critically low 36.0-48.0 [facility] Comment on above: Performed By: #### P TT, PT #### [facility] [address] [place] [address] Dr. Shine Del Rosario HGB 7.9 g/dl Critically low 12.0-16.0 [facility] Comment on above: Performed By: #### P TT, PT #### [facility] [address] [place] [address] Dr. Shine Del Rosario LYMPHM # 1.33 103/ul Normal 1.20-3.80 [facility] Comment on above: Performed By: #### P TT, PT #### [facility] [address] [place] [address] Dr. Shine Del Rosario LYMPHM% 11.0 % Critically low 20.5-60.0 [facility] Comment on above: Performed By: #### P TT, PT #### [facility] Laboratory [address] [place] [address] Dr. Shine Del Rosario MCH 32.4 pg Normal 26.7-34.0 [facility] Comment on above: Performed By: #### P TT, PT #### [facility] Laboratory [address] [place] [address] Dr. Shine Del Rosario MCHC 31.7 g/dl Normal 29.9-35.2 [facility] Comment on above: Performed By: #### P TT, PT #### [facility] Laboratory [address] [place] [address] Dr. Shine Del Rosario MCV 102.0 fL Critically high 81.0-99.0 [facility] Comment on above: Performed By: #### P TT, PT #### [facility] [address] [place] [address] Dr. Shine Del Rosario METAMYELOCYTE # Normal [facility] Comment on above: Performed By: #### P TT, PT #### [facility] [address] [place] [address] Dr. Shine Del Rosario METAMYELOCYTE % Normal [facility] Comment on above: Performed By: #### P TT, PT #### [facility] [address] [address] [address] Shine Del Rosario MONOM# 1.81 103/ul Critically high 0.30-0.80 [facility] Comment on above: Performed By: #### P TT, PT #### [facility] [address] [address] [address] Shine Del Rosario MONOM% 15.0 % Critically high 1.7-12.0 [facility] Comment on above: Performed By: #### P TT, PT #### [facility] [address] [address] [address] Shine Del Rosario MPV 9.0 fL Critically low 9.5-13.5 [facility] Comment on above: Performed By: #### P TT, PT #### [facility] [address] [place] [address] Dr. Shine Del Rosario MYELOCYTE # Normal [facility] Comment on above: Performed By: #### P TT, PT #### [facility] [address] [address] [address] Shine Del Rosario MYELOCYTE % Normal [facility] Comment on above: Performed By: #### P TT, PT #### [facility] [address] [place] [address] Dr. Shine Del Rosario NRBC Normal [facility] Comment on above: Performed By: #### P TT, PT #### [facility] [address] [address] [address] Shine Del Rosario PLT 381 103/ul Normal 150-450 [facility] Comment on above: Performed By: #### P TT, PT #### [facility] [address] [address] [address] Shine Del Rosario RBC 2.44 106/ul Critically low 4.20-5.40 [facility] Comment on above: Performed By: #### P TT, PT #### [facility] [address] [place] [address] Dr. Shine Del Rosario RDW 12.7 % Normal 11.0-15.0 [facility] Comment on above: Performed By: #### P TT, PT #### [facility] [address] [address] [address] Shine Del Rosario SEG # 8.35 103/ul Critically high 1.40-6.50 [facility] Comment on above: Performed By: #### P TT, PT #### [facility] [address] [place] [address] Dr. Shine Del Rosario SEG % 69.0 % Normal 43.0-75.0 [facility] Comment on above: Performed By: #### P TT, PT #### [facility] [address] [place] [address] Dr. Shine Del Rosario WBC 12.1 103/ul Critically high 4.0-11.0 [facility] Comment on above: Performed By: #### P TT, PT #### [facility] [address] [place] [address] Dr. Shine Del Rosario OSMOLALITYon 09-07-2021 Osmolality [Osmolality] 253 mosm/kg Critically low 280-301 [facility] Comment on above: Performed By: #### L IVER #### [facility] [address] [place] [address] Dr. Shine Del Rosario PROF CHEM 8 (BAS METB)on Anion gap [Moles/Vol] 12.6 mmol/L Normal [facility] Comment on above: Performed By: #### P TT, PT #### [facility] [address] [place] [address] Dr. Shine Del Rosario Calcium [Mass/Vol] 8.4 mg/dL Critically low 8.5-10.1 [facility] Comment on above: Performed By: #### P TT, PT #### [facility] [address] [place] [address] Dr. Shine Del Rosario Chloride [Moles/Vol] 95 mmol/L Critically low 98-107 [facility] Comment on above: Performed By: #### P TT, PT #### [facility] [address] [place] [address] Dr. Shine Del Rosario CO2 [Moles/Vol] 24.7 mmol/L Normal 21.0-32.0 [facility] Comment on above: Performed By: #### P TT, PT #### [facility] [address] [address] [address] Shine Del Rosario Creatinine [Mass/Vol] 1.02 mg/dL Normal 0.55-1.02 [facility] Comment on above: Performed By: #### P TT, PT #### [facility] [address] [address] [address] Shine Del Rosario EGFR-AF COSTA RICAN >60 Normal >=60 [facility] Comment on above: Performed By: #### P TT, PT #### [facility] [address] [address] [address] Shine Del Rosario EGFR-NON AF COSTA RICAN 55 mL/min/1.73m2 Critically low >=60 [facility] Comment on above: Performed By: #### P TT, PT #### [facility] [address] [place] [address] Dr. Shine Del Rosario Glucose [Mass/Vol] 116 mg/dL Critically high 74-[address] [facility] Comment on above: Performed By: #### P TT, PT #### [facility] [address] [place] [address] Dr. Shine Del Rosario Potassium [Moles/Vol] 4.3 mmol/L Normal 3.5-5.1 [facility] Comment on above: Performed By: #### P TT, PT #### [facility] [address] [address] [address] Shine Del Rosario Sodium [Moles/Vol] 128 mmol/L Critically low 136-145 [facility] Comment on above: Performed By: #### P TT, PT #### [facility] [address] [address] [address] Shine Del Rosario Urea nitrogen [Mass/Vol] 20.0 mg/dL Critically high 7.0-18.0 [facility] Comment on above: Performed By: #### P TT, PT #### [facility] [address] [place] [address] Dr. Shine Del Rosario Urea nitrogen/Creatinine [Mass ratio] 19.6 mg/mg Normal [facility] Comment on above: Performed By: #### P TT, PT #### [facility] [address] [address] [address] Shine Del Rosario XR CHEST 1 [...] GAMAL ARRIAZA Date: 2021-09-07 06:32 Normal [facility] CBC AUTO DIFFon 09-06-2021 BASO # 0.1 103/ul Normal 0.0-0.1 [facility] Comment on above: Performed By: #### P TT, PT #### [facility] [address] [address] [address] Shine Del Rosario Basophils/100 WBC (Bld) 0.7 % Normal 0.2-2.0 [facility] Comment on above: Performed By: #### P TT, PT #### [facility] [address] [place] [address] Dr. Shine Del Rosario EO # 0.3 103/ul Normal 0.0-0.7 [facility] Comment on above: Performed By: #### P TT, PT #### [facility] [address] [address] [address] Shine Del Rosario Eosinophils/100 WBC (Bld) 3.0 % Normal 0.9-7.0 [facility] Comment on above: Performed By: #### P TT, PT #### [facility] [address] [place] [address] Dr. Shine Del Rosario Erythrocyte distribution width (RBC) [Ratio] 12.3 % Normal 11.0-15.0 [facility] Comment on above: Performed By: #### P TT, PT #### [facility] [address] [place] [address] Dr. Shine Del Rosario Hematocrit (Bld) [Volume fraction] 22.2 % Critically low 36.0-48.0 [facility] Comment on above: Result Comment: repe ated Performed By: #### P TT, PT #### [facility] [address] [place] [address] Dr. Shine Del Rosario Hemoglobin (Bld) [Mass/Vol] 7.3 g/dL Critically low 12.0-16.0 [facility] Comment on above: Performed By: #### P TT, PT #### [facility] [address] [place] [address] Dr. Shine Del Rosario IG # 0.18 10e3/ul Critically high 0.00-0.03 [facility] Comment on above: Performed By: #### P TT, PT #### [facility] [address] [place] [address] Dr. Shine Del Rosario IG % 2.1 % Critically high 0.0-0.5 [facility] Comment on above: Performed By: #### P TT, PT #### [facility] [address] [place] [address] Dr. Shine Del Rosario LYMPH # 1.5 103/ul Normal 1.2-3.8 [facility] Comment on above: Performed By: #### P TT, PT #### [facility] [address] [place] [address] Dr. Shine Del Rosario Lymphocytes/100 WBC (Bld) 17.7 % Critically low 20.5-60.0 [facility] Comment on above: Performed By: #### P TT, PT #### [facility] [address] [place] [address] Dr. Shine Del Rosario MANUAL DIFF REQ NO Normal [facility] Comment on above: Performed By: #### P TT, PT #### [facility] [address] [place] [address] Dr. Shine Del Rosario MCH (RBC) [Entitic mass] 32.0 pg Normal 26.7-34.0 [facility] Comment on above: Performed By: #### P TT, PT #### [facility] [address] [place] [address] Dr. Shine Del Rosario MCHC (RBC) [Mass/Vol] 32.9 g/dL Normal 29.9-35.2 [facility] Comment on above: Performed By: #### P TT, PT #### [facility] [address] [place] [address] Dr. Shine Del Rosario MCV (RBC) [Entitic vol] 97.4 fL Normal 81.0-99.0 [facility] Comment on above: Performed By: #### P TT, PT #### [facility] [address] [place] [address] Dr. Shine Del Rosario MONO # 1.2 103/ul Critically high 0.3-0.8 [facility] Comment on above: Performed By: #### P TT, PT #### [facility] [address] [place] [address] Dr. Shine Del Rosario Monocytes/100 WBC (Bld) 14.1 % Critically high 1.7-12.0 [facility] Comment on above: Performed By: #### P TT, PT #### [facility] [address] [place] [address] Dr. Shine Del Rosario NEUT # 5.4 103/ul Normal 1.4-6.5 [facility] Comment on above: Performed By: #### P TT, PT #### [facility] [address] [place] [address] Dr. Shine Del Rosario Neutrophils/100 WBC (Bld) 62.4 % Normal 43.0-75.0 [facility] Comment on above: Performed By: #### P TT, PT #### [facility] [address] [place] [address] Dr. Shine Del Rosario Platelet mean volume (Bld) [Entitic vol] 8.9 fL Critically low 9.5-13.5 [facility] Comment on above: Performed By: #### P TT, PT #### [facility] [address] [place] [address] Dr. Shine Del Rosario PLT 310 103/ul Normal 150-450 [facility] Comment on above: Performed By: #### P TT, PT #### [facility] [address] [address] [address] Shine Del Rosario RBC 2.28 106/ul Critically low 4.20-5.40 [facility] Comment on above: Performed By: #### P TT, PT #### [facility] [address] [address] [address] Shine Del Rosario WBC 8.7 103/ul Normal 4.0-11.0 [facility] Comment on above: Performed By: #### P TT, PT #### [facility] [address] [address] [address] Shine Del Rosario IRON AND TIBCon 09-06-2021 % SATURATION 13.1 % Normal [facility] Comment on above: Performed By: #### P HVEN #### [facility] [address] [place] [address] Dr. Shine Del Rosario Iron [Mass/Vol] 30.0 ug/dL Critically low 50.0-170.0 [facility] Comment on above: Performed By: #### P HVEN #### [facility] [address] [place] [address] Dr. Shine Del Rosario TIBC DIRECT 229.0 ug/dL Critically low 250.0-450. 0 [facility] Comment on above: Performed By: #### P HVEN #### [facility] [address] [place] [address] Dr. Shine Del Rosario MRI LSPINE WO [...] PAWAN GEORGE Date: 2021-09-06 12:53 Normal [facility] PROF CHEM 8 (BAS METB)on Anion gap [Moles/Vol] 10.9 mmol/L Normal [facility] Comment on above: Performed By: #### B MP #### [facility] [address] [address] [address] Shine Del Rosario Calcium [Mass/Vol] 8.1 mg/dL Critically low 8.5-10.1 Th [facility] Comment on above: Performed By: #### B MP #### [facility] [address] [address] [address] Shine Del Rosario Chloride [Moles/Vol] 95 mmol/L Critically low 98-107 [facility] Comment on above: Performed By: #### B MP #### [facility] [address] [address] [address] Shine Del Rosario CO2 [Moles/Vol] 25.6 mmol/L Normal 21.0-32.0 [facility] Comment on above: Performed By: #### B MP #### [facility] [address] [address] [address] Shine Del Rosario Creatinine [Mass/Vol] 0.77 mg/dL Normal 0.55-1.02 [facility] Comment on above: Performed By: #### B MP #### [facility] [address] [address] [address] Shine Del Rosario EGFR-AF COSTA RICAN >60 Normal >=60 [facility] Comment on above: Performed By: #### B MP #### [facility] [address] [address] [address] Shine Del Rosario EGFR-NON AF COSTA RICAN >60 Normal >=60 [facility] Comment on above: Performed By: #### B MP #### [facility] [address] [address] [address] Shine Del Rosario Glucose [Mass/Vol] 103 mg/dL Normal 74-106 [facility] Comment on above: Performed By: #### B MP #### [facility] [address] [address] [address] Shine Del Rosario Potassium [Moles/Vol] 3.5 mmol/L Normal 3.5-5.1 [facility] Comment on above: Performed By: #### B MP #### [facility] [address] [address] [address] Shine Del Rosario Sodium [Moles/Vol] 128 mmol/L Critically low 136-145 Th [facility] Comment on above: Performed By: #### B MP #### [facility] [address] [address] [address] Shine Del Rosario Urea nitrogen [Mass/Vol] 14.0 mg/dL Normal 7.0-18.0 [facility] Comment on above: Performed By: #### B MP #### [facility] [address] [address] [address] Shine Del Rosario Urea nitrogen/Creatinine [Mass ratio] 18.2 mg/mg Normal [facility] Comment on above: Performed By: #### B MP #### [facility] [address] [place] [address] Dr. Shine Del Rosario US SINGLE QUAD [...] by: PAWAN GEORGE Date: 2021-09-06 11:01 Normal [facility] XR CHEST 1 Von 09-06-2021 XR [...] RITIKA HILLIARD Date: 2021-09-06 06:05 Normal [facility] BNPon 09-05-2021 Natriuretic peptide B (Bld) [Mass/Vol] 744.0 pg/mL Normal <=900.0 [facility] Comment on above: Performed By: #### B MP #### [facility] [address] [address] [address] Shine Del Rosario CARDIAC WILD ADMITon 022 CK [Catalytic activity/Vol] 211 U/L Critically high 26-192 [facility] Comment on above: Performed By: #### B MP #### [facility] [address] [address] [address] Shine Del Rosario CK.MB [Mass/Vol] 2.15 ng/mL Normal <=3.60 [facility] Comment on above: Performed By: #### B MP #### [facility] [address] [place] [address] Dr. Shine Del Rosario HSTROP 12.4 pg/mL Normal 4.0-51.3 [facility] Comment on above: Result Comment: CUT- OFF POINTS HAVE BEEN ESTABLISHED BASED ON THE FOURTH UNIVERSAL DEFINITIONS OF MYOCARDIAL INFARCTION. THE UPPER REFERENCE LIMIT (URL) OF TROPONIN, DEFINED THE 99TH PERCENTILE OF cTnI DISTRIBUTION IN A REFERENCE POPULATION, HAS BEEN CONFIRMED THE DECISION THRESHOLD FOR AR DIAGNOSIS. Performed By: #### B MP #### [facility] [address] [place] [address] Dr. Shine Del Rosario YANG 176 ng/mL Critically high 9-82 [facility] Comment on above: Performed By: #### B MP #### [facility] [address] [place] [address] Dr. Shine Del Rosario CBC AUTO DIFFon 09-05-2021 BASO # 0.0 103/ul Normal 0.0-0.1 [facility] Comment on above: Performed By: #### B MP #### [facility] [address] [place] [address] Dr. Shine Del Rosario Basophils/100 WBC (Bld) 0.3 % Normal 0.2-2.0 [facility] Comment on above: Performed By: #### B MP #### [facility] [address] [place] [address] Dr. Shine Del Rosario EO # 0.1 103/ul Normal 0.0-0.7 [facility] Comment on above: Performed By: #### B MP #### [facility] [address] [place] [address] Dr. Shine Del Rosario Eosinophils/100 WBC (Bld) 0.4 % Critically low 0.9-7.0 [facility] Comment on above: Performed By: #### B MP #### [facility] [address] [place] [address] Dr. Shine Del Rosario Erythrocyte distribution width (RBC) [Ratio] 12.0 % Normal 11.0-15.0 [facility] Comment on above: Performed By: #### B MP #### [facility] [address] [place] [address] Dr. Shine Del Rosario Hematocrit (Bld) [Volume fraction] 25.8 % Critically low 36.0-48.0 [facility] Comment on above: Performed By: #### B MP #### [facility] [address] [place] [address] Dr. Shine Del Rosario Hemoglobin (Bld) [Mass/Vol] 8.8 g/dL Critically low 12.0-16.0 [facility] Comment on above: Performed By: #### B MP #### [facility] [address] [place] [address] Dr. Shine Del Rosario IG # 0.19 10e3/ul Critically high 0.00-0.03 [facility] Comment on above: Performed By: #### B MP #### [facility] [address] [place] [address] Dr. Shine Del Rosario IG % 1.6 % Critically high 0.0-0.5 [facility] Comment on above: Performed By: #### B MP #### [facility] [address] [place] [address] Dr. Shine Del Rosario LYMPH # 1.1 103/ul Critically low 1.2-3.8 [facility] Comment on above: Performed By: #### B MP #### [facility] [address] [place] [address] Dr. Shine Del Rosario Lymphocytes/100 WBC (Bld) 9.9 % Critically low 20.5-60.0 [facility] Comment on above: Performed By: #### B MP #### [facility] [address] [place] [address] Dr. Shine Del Rosario MANUAL DIFF REQ NO Normal [facility] Comment on above: Performed By: #### B MP #### [facility] [address] [place] [address] Dr. Shine Del Rosario MCH (RBC) [Entitic mass] 32.2 pg Normal 26.7-34.0 [facility] Comment on above: Performed By: #### B MP #### [facility] [address] [address] [address] Shine Del Rosario MCHC (RBC) [Mass/Vol] 34.1 g/dL Normal 29.9-35.2 [facility] Comment on above: Performed By: #### B MP #### [facility] [address] [address] [address] Shine Del Rosario MCV (RBC) [Entitic vol] 94.5 fL Normal 81.0-99.0 [facility] Comment on above: Performed By: #### B MP #### [facility] [address] [address] [address] Shine Del Rosario MONO # 1.1 103/ul Critically high 0.3-0.8 [facility] Comment on above: Performed By: #### B MP #### [facility] [address] [place] [address] Dr. Shine Del Rosario Monocytes/100 WBC (Bld) 9.7 % Normal 1.7-12.0 [facility] Comment on above: Performed By: #### B MP #### [facility] [address] [place] [address] Dr. Shine Del Rosario NEUT # 9.0 103/ul Critically high 1.4-6.5 [facility] Comment on above: Performed By: #### B MP #### [facility] [address] [place] [address] Dr. Shine Del Rosario Neutrophils/100 WBC (Bld) 78.1 % Critically high 43.0-75.0 [facility] Comment on above: Performed By: #### B MP #### [facility] [address] [address] [address] Shine Del Rosario Platelet mean volume (Bld) [Entitic vol] 9.1 fL Critically low 9.5-13.5 [facility] Comment on above: Performed By: #### B MP #### [facility] [address] [address] [address] Shine Del Rosario PLT 341 103/ul Normal 150-450 [facility] Comment on above: Performed By: #### B MP #### [facility] [address] [place], [place] [address] Dr. Shine Del Rosario RBC 2.73 106/ul Critically low 4.20-5.40 [facility] Comment on above: Performed By: #### B MP #### [facility] [id number] Shine Del Rosario WBC 11.6 103/ul Critically high 4.0-11.0 [facility] Comment on above: Performed By: #### B MP #### [facility] [id number] Shine Del Rosario CT CHEST WO [...] PAWAN GEORGE Date: 2021-09-05 12:46 Normal [facility] CT CSPINE WO CONon CT CSPINE WO [...] SLOANE DIEHL Date: 2021-09-05 09:38 Normal [facility] Covid-19 PCR (CVDTB)on 08-13 SARS-CoV-2 (COVID-19) RNA LYLA+probe Ql (Unsp spec) Not detected Normal NOT DETECTED [facility] Comment on above: Result Comment: When diagnostic [...] for this test is supported by the Sample Dist[employer] of Health and Human Service's declaration that [...] used). Performed By: #### B MP #### [facility] [address] [place] [address] Dr. Shine Del Rosario ER URINE PROFILEon 2 Bilirubin Ql (U) Negative Normal NEGATIVE [facility] Comment on above: Performed By: #### P HVEN #### [facility] [address] [place] [address] Dr. Shine Del Rosario Clarity (U) CLEAR Normal CLEAR [facility] Comment on above: Performed By: #### P HVEN #### [facility] [address] [place] [address] Dr. Shine Del Rosario Color (U) LT. YELLOW Normal YELLOW [facility] Comment on above: Performed By: #### P HVEN #### [facility] [address] [place] [address] Dr. Shine ARDON A micrscopic examina tion will be performed if indicated. Normal [facility] Comment on above: Performed By: #### P HVEN #### [facility] [address] [place] [address] Dr. Shine Del Rosario Glucose Ql (U) Negative Normal NEGATIVE [facility] Comment on above: Performed By: #### P HVEN #### [facility] [address] [place] [address] Dr. Shine Del Rosario Hemoglobin Ql (U) Negative Normal NEGATIVE [facility] Comment on above: Performed By: #### P HVEN #### [facility] [address] [place] [address] Dr. Shine Del Rosario Ketones Ql (U) Negative Normal NEGATIVE [facility] Comment on above: Performed By: #### P HVEN #### [facility] [address] [place] [address] Dr. Shine Del Rosario LEUKOCYTES Negative Normal NEGATIVE [facility] Comment on above: Performed By: #### P HVEN #### [facility] [address] [place] [address] Dr. Shine Del Rosario Nitrite Ql (U) Negative Normal NEGATIVE [facility] Comment on above: Performed By: #### P HVEN #### [facility] [address] [place] [address] Dr. Shine Del Rosario pH (U) 6.0 [pH] Normal 5-9 [facility] Comment on above: Performed By: #### P HVEN #### [facility] [address] [place] [address] Dr. Shine Del Rosario SPEC GRAVITY 1.010 Normal 1.005-<=1. 025 [facility] Comment on above: Performed By: #### P HVEN #### [facility] [address] [place] [address] Dr. Shine Del Rosario UA PROTEIN Negative Normal NEGATIVE/ TRACE [facility] Comment on above: Performed By: #### P HVEN #### [facility] [address] [place] [address] Dr. Shine Del Rosario UR MICRO IND NOT INDICATED Normal [facility] Comment on above: Performed By: #### P HVEN #### [facility] [address] [place] [address] Dr. Shine Del Rosario Urobilinogen Qn (U) 0.2 {Estela'U}/dL Normal 0.2 - 1. 0 [facility] Comment on above: Performed By: #### P HVEN #### [facility] [address] [place] [address] Dr. Shine Del Rosario ETHANOL (BLD ALC)on 09-06-19 ALC NOTE NOTE: 80 mg/dl is th e legal limit for a blood alcohol level Normal [facility] Comment on above: Performed By: #### L IVER #### [facility] [address] [place] [address] Dr. Shine Del Rosario Ethanol [Mass/Vol] mg/dL Normal [facility] Comment on above: Performed By: #### L IVER #### [facility] [address] [place] [address] Dr. Shine Del Rosario INFLUENZA A AND B AGon 09-05 INFLUANEGH SEE BELOW Normal [facility] Comment on above: Result Comment: Nega tive for Flu A protein angiten. Infection due to Flu A cannot be ruled out. Flu A angiten in the sample may be below the detection limit of the test. Performed By: #### I NFLUAB #### [facility] [address] [place] [address] Dr. Shine Del Rosario INFLUBNEGH SEE BELOW Normal [facility] Comment on above: Result Comment: Nega tive for Flu B protein antigen. Infection due to Flu B cannot be ruled out. Flu B antigen in the sample may be below the detection limit of the test. Performed By: #### I NFLUAB #### [facility] [address] [place] [address] Dr. Shine Del Rosario INFLUENZA A AG Negative Normal NEGATIVE SEE COMMENT [facility] Comment on above: Performed By: #### I NFLUAB #### [facility] [address] [place] [address] Dr. Shine Del Rosario INFLUENZA B AG Negative Normal NEGATIVE SEE COMMENT [facility] Comment on above: Performed By: #### I NFLUAB #### [facility] [address] [place] [address] Dr. Shine Del Rosario INTERNAL CONTROLS Within Normal Limits Normal Wi thin Normal Limits [facility] Comment on above: Performed By: #### I NFLUAB #### [facility] [address] [place] [address] Dr. Shine Del Rosario PH VENOUS BLOODon 09-05-2021 PCO2 VENOUS 37.8 mmHg Critically low 40.0-52.0 [facility] Comment on above: Performed By: #### P HVEN #### [facility] [address] [place] [address] Dr. Shine Del Rosario pH VENOUS 7.416 Normal 7.330-7.43 0 [facility] Comment on above: Performed By: #### P HVEN #### [facility] [address] [address] [address] Shine Del Rosario PROF 14(COMP METB)on 022 Albumin [Mass/Vol] 3.2 g/dL Critically low 3.4-5.0 Th e [facility] Comment on above: Performed By: #### B MP #### [facility] [address] [place] [address] Dr. Shine Del Rosario Albumin/Globulin [Mass ratio] 0.8 {ratio} Normal [facility] Comment on above: Performed By: #### B MP #### [facility] [address] [place] [address] Dr. Shine Del Rosario ALP [Catalytic activity/Vol] 111 U/L Normal 46-116 [facility] Comment on above: Performed By: #### B MP #### [facility] [address] [place] [address] Dr. Shine Del Rosario ALT [Catalytic activity/Vol] 72 U/L Critically high 14-59 [facility] Comment on above: Performed By: #### B MP #### [facility] [address] [place] [address] Dr. Shine Del Rosario Anion gap [Moles/Vol] 16.0 mmol/L Normal [facility] Comment on above: Performed By: #### B MP #### [facility] [address] [place] [address] Dr. Shine Del Rosario AST [Catalytic activity/Vol] 54 U/L Critically high 15-37 [facility] Comment on above: Performed By: #### B MP #### [facility] [address] [place] [address] Dr. Shine Del Rosario Bilirubin [Mass/Vol] 1.4 mg/dL Critically high 0.2-1.0 [facility] Comment on above: Performed By: #### B MP #### [facility] [address] [place] [address] Dr. Shine Del Rosario Calcium [Mass/Vol] 8.5 mg/dL Normal 8.5-10.1 [facility] Comment on above: Performed By: #### B MP #### [facility] [address] [address] [address] Shine Del Rosario Chloride [Moles/Vol] 85 mmol/L Critically low 98-107 [facility] Comment on above: Performed By: #### B MP #### [facility] [address] [address] [address] Shine Del Rosario CO2 [Moles/Vol] 22.7 mmol/L Normal 21.0-32.0 [facility] Comment on above: Performed By: #### B MP #### [facility] [address] [address] [address] Shine Del Rosario Creatinine [Mass/Vol] 1.03 mg/dL Critically high 0.55-1.02 [facility] Comment on above: Performed By: #### B MP #### [facility] [address] [place] [address] Dr. Shine Del Rosario EGFR-AF [place] >60 Normal >=60 [facility] Comment on above: Performed By: #### B MP #### [facility] [address] [place] [address] Dr. Shine Del Rosario EGFR-NON AF [place] 54 mL/min/1.73m2 Critically low >=60 [facility] Comment on above: Performed By: #### B MP #### [facility] [address] [place] [address] Dr. Shine Del Rosario Globulin (S) [Mass/Vol] 3.8 g/dL Normal [facility] Comment on above: Performed By: #### B MP #### [facility] [address] [address] [address] Shine Del Rosario Glucose [Mass/Vol] 136 mg/dL Critically high 74-[address] [facility] Comment on above: Performed By: #### B MP #### [facility] [address] [address] [address] Shine Del Rosario Potassium [Moles/Vol] 2.7 mmol/L Critically low 3.5-5.1 [facility] Comment on above: Performed By: #### B MP #### [facility] [address] [place] [address] Dr. Shine Del Rosario Protein [Mass/Vol] 7.0 g/dL Normal 6.1-8.2 [facility] Comment on above: Performed By: #### B MP #### [facility] [address] [place] [address] Dr. Shine Del Rosario Sodium [Moles/Vol] 120 mmol/L Critically low 136-145 Th e [facility] Comment on above: Performed By: #### B MP #### [facility] [address] [place] [address] Dr. Shine Del Rosario Urea nitrogen [Mass/Vol] 16.0 mg/dL Normal 7.0-18.0 [facility] Comment on above: Performed By: #### B MP #### [facility] [address] [place] [address] Dr. Shine Del Rosario Urea nitrogen/Creatinine [Mass ratio] 15.5 mg/mg Normal [facility] Comment on above: Performed By: #### B MP #### [facility] [address] [place] [address] Dr. Shine Del Rosario PROTIMEon 09-05-2021 INR Coag (PPP) [Relative time] 0.96 {INR} Normal [facility] Comment on above: Performed By: #### P TT, PT #### [facility] [address] [place] [address] Dr. Shine Del Rosario INR GUIDELINES SEE BELOW Normal [facility] Comment on above: Result Comment: JUDY RED INR: 2.0 - 3.0 CONDITIONS NOT LISTED BELOW 2.5 - 3.5 FOR PROSTHETIC HEART VALVE REPLACEMENT 2.5 - 3.5 RECURRENT THROMBOSIS Performed By: #### P TT, PT #### [facility] [address] [place] [address] Dr. Shine Del Rosario PT Coag (PPP) [Time] 10.4 s Normal 9.0-11.6 [facility] Comment on above: Performed By: #### P TT, PT #### [facility] [address] [place] [address] Dr. Shine Del Rosario PTTon 09-05-2021 aPTT Coag (Bld) [Time] 37.6 s Critically high 22.3-36.2 [facility] Comment on above: Performed By: #### P TT, PT #### [facility] [address] [address] [address] Shine Del Rosario SODIUM RANDOM URINEon 2021 Sodium (U) [Moles/Vol] 20 mmol/L Critically low 30-90 [facility] Comment on above: Performed By: #### B MP #### [facility] [address] [address] [address] Shine Del Rosario TSHon 09-05-2021 TSH 1.734 uIU/mL Normal 0.470-4.68 0 [facility] Comment on above: Performed By: #### B MP #### [facility] [address] [place] [address] Dr. Shine Del Rosario TSH RANGE SEE BELOW Normal [facility] Comment on above: Result Comment: <0.3 4 UIU/ml HYPERTHYROID 0.34-5.60 UIU/ml EUTHYROID >5.60 UIU/ml HYPOTHYROID Performed By: #### B MP #### [facility] [address] [place] [address] Dr. Shine Del Rosario XR CHEST 1 [...] PAWAN GEORGE Date: 2021-09-05 09:25 Normal [facility] CT chest wo conon 07-25-2018 CT chest wo con [facility] [place] [address] CT Scan Report Signed Patient: Catherine Adamson MR#: [id number] : 1960 Acct:[id number] Age/Sex: 58 / F ADM Date: 07/25/18 Loc: Room: Type: [facility] Attending Dr: Judy Baltazar MD Ordering Provider: [...] Wild Cardoso M.D.07/25/2018 1:57 PM Dictation Location: [place] [address] Transcribed By: SOLOMON 07/25/18 1351 Dictated By: Wild Cardoso II, MD 07/25/18 1351 Signed By: 07/25/18 1350 [facility] US renal BIon 07-25-2018 US renal BI [facility] [place] [address] Ultrasound Report Signed Patient: Catherine Adamson MR#: [id number] : 1960 Acct:[id number] Age/Sex: 58 / F ADM Date: 07/25/18 Loc: Room: Type: [facility] Attending Dr: Judy Baltazar MD Ordering Provider: [...] Wild Cardoso M.D.07/25/2018 1:47 PM Dictation Location: [place] [address] Tech: Julia Foreman Transcribed By: SOLOMON 07/25/18 1347 Dictated By: Wild Cardoso II, MD 07/25/18 1346 Signed By: 07/25/18 1347 [facility] Discharge Summaryon 02-16-20 Discharge Summary MR#: [id number] n [facility] Pt. Name: Catherine Adamson Admitted: 02/12/2017 Discharged: 02/14/2017 Date of : 1960 Physician: Wanda Wheeler M.D. 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 She stated the pain radiatedto her left jaw and caused numbness in her left arm and was also associatedwith anxiety. This prompted her to call 911, and take 4 baby aspirin. Shesaid her pain was relieved mildly with the 4 baby aspirin and was relievedwith 2 tablets of nitroglycerin which she was given in the emergencydepartment. She presented to the [facility] Emergency Department where EKG wasperformed, sinus rhythm [...] beengiven instructions to follow up with the keller machine operator at [facility] on and will undergo cardiac rehab as [...] Temperature 98.1, pulse 81, respirations 18, blood /85, oxygen saturation 98% on room air.GENERAL: Alert [...] TIME OF DISCHARGE: Sodium 139, potassium 3.6, [id number], carbon dioxide 24, calcium 8.9, GFR greater [...] Dict: 02/14/2017/04:05 Dulce/Leighton Goetz Trans: 02/15/2017 03:46 A/[id number]: Addy Zhong D.O. [address] [facility] A [facility] [address] Normal [facility] BASIC METABOLIC PANELon 10-0 Calcium 8.9 mg/dL Normal 8.6-10.3 [facility] Comment on above: Order Comment: No: D o not add to previous draw Performed By: #### 5 0103 ####[facility] [place] [address], [facility] Chloride 107 mmol/L Normal 98-107 [facility] Comment on above: Order Comment: No: D o not add to previous draw Performed By: #### 5 0103 ####[facility] [place] [address], [facility] CO2 24 mmol/L Normal 21-31 [facility] Comment on above: Order Comment: No: D o not add to previous draw Performed By: #### 5 0103 ####[facility] [place] [address], [place] Creatinine 0.55 mg/dL Low 0.60-1.20 [facility] Comment on above: Order Comment: No: D o not add to previous draw Performed By: #### 5 0103 ####[facility] [place] [address], [place] eGFR (black) mL/min/{1.73_m2} Normal >60 [facility] Comment on above: Order Comment: No: D o not add to previous draw Performed By: #### 5 0103 ####[facility] [place] [address], [place] eGFR (non-black) mL/min/{1.73_m2} Normal >60 [facility] Comment on above: Order Comment: No: D o not add to previous draw Performed By: #### 5 0103 ####[facility] [place] [address], [facility] Glucose mass conc 85 mg/dL Normal 70-100 [facility] Comment on above: Order Comment: No: D o not add to previous draw Performed By: #### 5 0103 ####[facility] [place] [address], [facility] Potassium molar conc 3.6 mmol/L Normal 3.5-5.1 [facility] Comment on above: Order Comment: No: D o not add to previous draw Performed By: #### 5 3 ####[facility] [place] [address], [facility] Sodium 139 mmol/L Normal 136-145 [facility] Comment on above: Order Comment: No: D o not add to previous draw Performed By: #### 5 3 ####[facility] [place] [address], [facility] Urea nitrogen 8 mg/dL Normal 7-25 [facility] Comment on above: Order Comment: No: D o not add to previous draw Performed By: #### 5 3 ####[facility] [place] [address], [facility] CBC COMPLETE BLOOD COUNTon 1 - Erythrocyte distribution width Auto Ratio (RBC) 13.0 % Normal 11.5-16.9 [facility] Comment on above: Order Comment: No: D o not add to previous draw Performed By: #### 5 3 ####[facility] [place] [address], [facility] Erythrocytes (RBC) 3.51 mill/mm3 Normal 3.50-5.50 [facility] Comment on above: Order Comment: No: D o not add to previous draw Performed By: #### 5 0103 ####[facility] Hematocrit (HCT) 33.4 % Low 36.0-48.0 [facility] Comment on above: Order Comment: No: D o not add to previous draw Performed By: #### 5 0103 ####[facility] Hemoglobin mass conc (Bld) 11.0 g/dL Low 12.0-15.0 [facility] Comment on above: Order Comment: No: D o not add to previous draw Performed By: #### 5 0103 ####[facility] [place] [address] MCH 31.4 pg Normal 24.0-32.0 [facility] Comment on above: Order Comment: No: D o not add to previous draw Performed By: #### 5 0103 ####[facility] [facility].[address] MCHC mass conc (RBC) 33.0 g/dL Normal 32.0-36.0 [facility] Comment on above: Order Comment: No: D o not add to previous draw Performed By: #### 5 0103 ####[facility] [facility].[address] MCV 95.1 fL Normal 80.0-100.0 [facility] Comment on above: Order Comment: No: D o not add to previous draw Performed By: #### 5 0103 ####[facility] [facility] [place] [address], [facility] PLAT CNT 352 Thou/mm3 Normal 100-400 [facility] Comment on above: Order Comment: No: D o not add to previous draw Performed By: #### 5 0103 ####[facility] WBC (Leukocytes) 6.1 Thou/mm3 Normal 4.0-10.0 [facility] Comment on above: Order Comment: No: D o not add to previous draw Performed By: #### 5 0103 ####[facility] Cardiovascular Lab Reporton 02-14-2017 Cardiovascular Lab Report [facility] Patient Name: Catherine Adamson [facility] MR #: [id number] Physician: Juaquin Blum M.D.Medicine Service Date: 02/13/2017Division of Birthdate: 1960Cardiology Room #: 3AB [id number] CardiovascularServicesUniversi Mill[facility] HospitalWetixmtBleqqy[address] [place], [place] [address]E[address] Cardiovascular Laboratory ReportCARDIAC CATHETERIZATION REPORTINDICATION:Catherine Adamson is a 56-year-old woman, who was admitted with recurrentepisodes of chest pain and mild elevation of cardiac enzymes. She wasreferred to the metallurgical lab technician as a non ST-segment elevation [...] Shesigned informed consent. She was brought to metallurgical lab technician in a fasting state.Ez's test was favorable on the left. Access in the left radial arterywas obtained using micropuncture technique. A 6-Gambian x 11 cm sheath wasplaced. A verapamil was given through the sheath and heparin wasadministered intravenously. Bilateral selective coronary angiography wasthen performed using 6-Gambian JL4 and JR4 diagnostic catheters. Catheterswere removed.Heparin was administered intravenously and therapeutic ACT confirmed duringthe procedure. A 6-Gambian XB 3.0 guiding catheter was advanced and used toengage left main coronary ostium. A Prowater wire was advanced into thedistal circumflex. Balloon angioplasty in the mid circumflex was performedusing an Emerge 2.5 x 15 mm balloon inflated at 12 atmospheres.Angiography revealed suboptimal results. This was treated using a PROMUSPremier 2.75 x 20 mm drug-eluting stent deployed at 11 atmospheres andpost-dilated using NC Quantum [place] 3.0 x 15 mm noncompliant ballooninflated at [...] 02/13/2017/12:28 P/Juaquin Roberto M.D.Date Trans: 02/14/2017 09:31 A/[id number]_JN:[id number]: Addy Zhong D.O. [address] [place] [address] Normal [facility] MAGNESIUM BLOODon 02-14-2017 Magnesium 2.0 mg/dL Normal 1.9-2.7 [facility] Comment on above: Performed By: #### 5 0103 ####[facility] [place] [address], [facility] TROPONIN-Ion 02-14-2017 Troponin I.cardiac mass conc 0.17 ng/mL High 0.00-0.04 [facility] Comment on above: Result Comment: REFE RENCE RANGES: 0.00 - 0.04 ng/ml NORMAL 0.05 - 0.50 ng/ml INDETERMINATE > 0.50 ng/ml CONSISTENT WITH AN M.I. Performed By: #### 5 0103 ####[facility] [place] [address], [facility] APTTon 02-13-2017 aPTT 39.1 s High 25.0-35.0 [facility] Comment on above: Order Comment: No: D [...] THIS PURPOSE. Performed By: #### 5 6101, 27285 ####[facility] [facility].[address] BASIC METABOLIC PANELon 10-0 Calcium 8.9 mg/dL Normal 8.6-10.3 [facility] Comment on above: Order Comment: No: D o not add to previous draw Performed By: #### 3 5200, 85558, 71696, 49714 ####[facility] [facility].[address] Chloride 105 mmol/L Normal 98-107 [facility] Comment on above: Order Comment: No: D o not add to previous draw Performed By: #### 3 5200, 75687, 09896, 38160 ####[facility] [facility].[address] CO2 25 mmol/L Normal 21-31 [facility] Comment on above: Order Comment: No: D o not add to previous draw Performed By: #### 3 5200, 44487, 62932, 84637 ####[facility] [facility].[address] Creatinine 0.51 mg/dL Low 0.60-1.20 [facility] Comment on above: Order Comment: No: D o not add to previous draw Performed By: #### 3 5200, 51553, 04693, 25322 ####[facility] [facility].[address] eGFR (black) mL/min/{1.73_m2} Normal >60 [facility] Comment on above: Order Comment: No: D o not add to previous draw Performed By: #### 3 5200, 53514, 66520, 54285 ####[facility] [facility] [place] [address], [place] eGFR (non-black) mL/min/{1.73_m2} Normal >60 [facility] Comment on above: Order Comment: No: D o not add to previous draw Performed By: #### 3 5200, 61270, 15240, 80904 ####[facility] [place] [address], [facility] Glucose mass conc 80 mg/dL Normal 70-100 [facility] Comment on above: Order Comment: No: D o not add to previous draw Performed By: #### 3 5200, 47437, 16053, 19645 ####[facility] [place] [address], [facility] Potassium molar conc 3.7 mmol/L Normal 3.5-5.1 [facility] Comment on above: Order Comment: No: D o not add to previous draw Performed By: #### 3 5200, 29651, 11542, 29219 ####[facility] [place] [address], [facility] Sodium 137 mmol/L Normal 136-145 [facility] Comment on above: Order Comment: No: D o not add to previous draw Performed By: #### 3 5200, 52332, 70639, 39904 ####[facility] [place] [address], [facility] Urea nitrogen 11 mg/dL Normal 7-25 [facility] Comment on above: Order Comment: No: D o not add to previous draw Performed By: #### 3 5200, [id number], 92054, 93559 ####[facility] [place] [address], [facility] CBC COMPLETE BLOOD COUNTon 1 - Erythrocyte distribution width Auto Ratio (RBC) 12.5 % Normal 11.5-16.9 [facility] Comment on above: Order Comment: No: D o not add to previous draw Performed By: #### 5 0608 ####[facility] Erythrocytes (RBC) 3.88 mill/mm3 Normal 3.50-5.50 [facility] Comment on above: Order Comment: No: D o not add to previous draw Performed By: #### 5 0608 ####[facility] Hematocrit (HCT) 36.5 % Normal 36.0-48.0 [facility] Comment on above: Order Comment: No: D o not add to previous draw Performed By: #### 5 0608 ####[facility]3000 [facility].[address] Hemoglobin mass conc (Bld) 12.3 g/dL Normal 12.0-15.0 [facility] Comment on above: Order Comment: No: D o not add to previous draw Performed By: #### 5 0608 ####[facility]3000 [facility].[address] MCH 31.7 pg Normal 24.0-32.0 [facility] Comment on above: Order Comment: No: D o not add to previous draw Performed By: #### 5 0608 ####[facility]3000 [facility].[address] MCHC mass conc (RBC) 33.7 g/dL Normal 32.0-36.0 [facility] Comment on above: Order Comment: No: D o not add to previous draw Performed By: #### 5 0608 ####[facility]3000 [facility].[address] MCV 94.1 fL Normal 80.0-100.0 [facility] Comment on above: Order Comment: No: D o not add to previous draw Performed By: #### 5 0608 ####[facility] [place] [address], [facility] PLAT CNT 361 Thou/mm3 Normal 100-400 [facility] Comment on above: Order Comment: No: D o not add to previous draw Performed By: #### 5 0608 ####[facility] WBC (Leukocytes) 5.6 Thou/mm3 Normal 4.0-10.0 [facility] Comment on above: Order Comment: No: D o not add to previous draw Performed By: #### 5 0608 ####[facility] CBC W/DIFFon 02-13-2017 Basophils Auto #/vol (Bld) 0.0 % Normal 0.0-2.0 [facility] Comment on above: Order Comment: No: D o not add to previous draw Performed By: #### 5 0103 ####[place] [address] [facility].[address] Eosinophils/100 leukocytes 0.0 % Normal 0.0-5.0 [facility] Comment on above: Order Comment: No: D o not add to previous draw Performed By: #### 5 0103 ####[facility]3000 [facility].[address] Erythrocyte distribution width Auto Ratio (RBC) 12.7 % Normal 11.5-16.9 [facility] Comment on above: Order Comment: No: D o not add to previous draw Performed By: #### 5 0103 ####[facility] Erythrocytes (RBC) 3.61 mill/mm3 Normal 3.50-5.50 [facility] Comment on above: Order Comment: No: D o not add to previous draw Performed By: #### 5 0103 ####[facility]3000 [facility].[address] Hematocrit (HCT) 34.0 % Low 36.0-48.0 [facility] Comment on above: Order Comment: No: D o not add to previous draw Performed By: #### 5 0103 ####[facility] Hemoglobin mass conc (Bld) 11.4 g/dL Low 12.0-15.0 [facility] Comment on above: Order Comment: No: D o not add to previous draw Performed By: #### 5 0103 ####[facility] Lymphocytes/100 leukocytes 58.0 % High 20.0-40.0 [facility] Comment on above: Order Comment: No: D o not add to previous draw Performed By: #### 5 0103 ####[address] MCH 31.7 pg Normal 24.0-32.0 [facility] Comment on above: Order Comment: No: D o not add to previous draw Performed By: #### 5 3 ####[facility] MCHC mass conc (RBC) 33.6 g/dL Normal 32.0-36.0 [facility] Comment on above: Order Comment: No: D o not add to previous draw Performed By: #### 5 0103 ####[facility] [place] [address] MCV 94.3 fL Normal 80.0-100.0 [facility] Comment on above: Order Comment: No: D o not add to previous draw Performed By: #### 5 0103 ####[facility] METHOD Manual blood smear e xamination performed Normal [facility] Comment on above: Order Comment: No: D o not add to previous draw Performed By: #### 5 3 ####[facility] [place] [address], [facility] MONOS 7.0 % Normal 2-8 [facility] Comment on above: Order Comment: No: D o not add to previous draw Performed By: #### 5 0103 ####[facility] [place] [address], [facility] OTHER 1 NORMAL RED CELL MORP HOLOGY SEEN Normal [facility] Comment on above: Order Comment: No: D o not add to previous draw Performed By: #### 5 0103 ####[facility]3000 [facility] [place] [address], [facility] PLAT CNT 359 Thou/mm3 Normal 100-400 [facility] Comment on above: Order Comment: No: D o not add to previous draw Performed By: #### 5 0103 ####[facility]3000 [facility].[address] SEGS 35.0 % Low 50-70 [facility] Comment on above: Order Comment: No: D o not add to previous draw Performed By: #### 5 0103 ####[facility]3000 [facility].[address] WBC (Leukocytes) 6.2 Thou/mm3 Normal 4.0-10.0 [facility] Comment on above: Order Comment: No: D o not add to previous draw Performed By: #### 5 0103 ####[facility] LIPID PROFILEon 02-13-2017 Cholesterol 204 mg/dL High 120-200 [facility] Comment on above: Order Comment: No: D o not add to previous draw Result Comment: CHOL ESTEROL REFERENCE RANGE:20 YEARS AND OLDER CARDIOVASCULAR RISKLess than 200 mg/dl Low Sldl525 to 239 mg/dl Borderline Tnbk268 mg/dl and greater High Risk Performed By: #### 5 0103 ####[facility] Cholesterol to HDL Ratio 3.5 {ratio} Normal .0-4.5 [facility] Comment on above: Order Comment: No: D o not add to previous draw Performed By: #### 5 0103 ####[facility]3000 [facility].[address] HDL Cholesterol 59 mg/dL Normal 23-92 [facility] Comment on above: Order Comment: No: D o not add to previous draw Result Comment: Slig ht variation in normal range could be due to gender and/or age.HDL CHOLESTEROL REFERENCE RANGE:20 years and older Cardiovascular Risk> or =60 mg/dL Wyjuhynns69 TO 59 mg/dL Low Risk<40 mg/dL High Risk Performed By: #### 5 0103 ####[facility] LDL Cholesterol 135 mg/dL High 0-130 [facility] Comment on above: Order Comment: No: D o not add to previous draw Result Comment: LDL IS A CALCULATIONLDL IS ONLY VALID IF THE TRIG IS LESS THAN 400. Performed By: #### 5 0103 ####[facility] NON-HDL CHOLESTEROL 145 mg/dL Normal [facility] Comment on above: Order Comment: No: D o not add to previous draw Performed By: #### 5 0103 ####[facility]3000 [facility].[address] Triglyceride 52 mg/dL Normal 40-149 [facility] Comment on above: Order Comment: No: D o not add to previous draw Result Comment: TRIG LYCERIDE REFERENCE RANGE:20 YEARS AND OLDER CARDIOVASCULAR RISKLESS THAN 150 mg/dl LOW [id number] TO 199 mg/dl BORDERLINE VNAQ151 mg/dl AND GREATER HIGH RISK Performed By: #### 5 0103 ####[facility] [place] [address], [facility] VLDL CHOL 10 mg/dL Normal 0-40 [facility] Comment on above: Order Comment: No: D o not add to previous draw Performed By: #### 5 0103 ####[facility]3000 [facility].[address] MAGNESIUM BLOODon 02-13-2017 Magnesium 1.8 mg/dL Low 1.9-2.7 [facility] Comment on above: Order Comment: No: D o not add to previous draw Performed By: #### 3 5200, 74679, 16651, 11755 ####[facility]3000 [facility].[address] PHOSPHORUS BLOODon 7 Phosphate 3.0 mg/dL Normal 2.5-5.0 [facility] Comment on above: Order Comment: No: D o not add to previous draw Performed By: #### 3 5200, 45195, 25653, 53389 ####[facility] PROTHROMBIN TIMEon 7 INR Coag RelTime (PPP) 1.00 {INR} Normal 0.91-1.16 [facility] Comment on above: Order Comment: No: D [...] OF ACTION, CLINICALEFFECTIVENESS, AND OPTIMAL THERAPEUTIC RANGE. [id number];108:[id number]. Performed By: #### 5 6101, 11501 ####[place] [address] [facility].[address] Prothrombin time (PT) Coag time (PPP) 13.2 s Normal 12.3-14.8 [facility] Comment on above: Order Comment: No: D o not add to previous draw Result Comment: ALL RESULTS MUST BE INTERPRETED WITH RESPECT TO BLOOD DRAWING ARTIFACTOR DILUTION ERROR OF ANTICOAGULANT AT THE TIME OF SAMPLING. Performed By: #### 5 6101, 39414 ####[place] [address] [facility].[address] TROPONIN-Ion 02-13-2017 Troponin I.cardiac mass conc 0.28 ng/mL High 0.00-0.04 [facility] Comment on above: Result Comment: REFE RENCE RANGES: 0.00 - 0.04 ng/ml NORMAL 0.05 - 0.50 ng/ml INDETERMINATE > 0.50 ng/ml CONSISTENT WITH AN M.I. Performed By: #### 3 5200, 03972, 57820, 10240 ####[address] PORTABLE CHEST 1 VIEWon PORTABLE CHEST 1 VIEW [facility] [address] [place] [address] Patient Name: CATHERINE ADAMSON : 1960Sex: FAge: Race: WhiteMRN: [id number]. Location: [id number] Status: IVisit #: [id number] Date: 02/12/2017 8:30:00 PMCompleted Date: 02/12/2017 08:51 PMRequesting Provider: AMBER POPE Attending Provider: WANDA WHEELER Report Copy To: Signs & Symptoms: Chest PainHistory: Patient history not availableComments: R/O EffusionExam: PORTABLE CHEST 1 VIEWAccession #: [id number] PORTABLE CHEST 1 VIEW 02/12/2017 8:51 PM [...] effusion Electronically signed by:Margarita Correia. Transcribed by: [email or web address], User Resident: Electronically Signed by: MARGARITA CORREIA @ 02/13/2017 08:42 AM Normal [facility] Comment on above: Order Comment: R/O E ffusion TROPONIN-Ion 02-12-2017 Troponin I.cardiac mass conc 0.20 ng/mL High 0.00-0.04 [facility] Comment on above: Order Comment: No: D o not add to previous draw Result Comment: REFE RENCE RANGES: 0.00 - 0.04 ng/ml NORMAL 0.05 - 0.50 ng/ml INDETERMINATE > 0.50 ng/ml CONSISTENT WITH AN M.I. Performed By: #### 3 5200 ####[facility] [place] [address], [facility] Vital Signs Date Time Vital Sign Value Performing Clinician Facility 06-05-2024 10:06-0500 Body height 158.75 cm [facility] 06-05-2024 10:06-0500 Body mass index (BMI) [Ratio] 24.3 kg/m2 [facility] 06-05-2024 10:06-0500 Body weight 61.23 kg [facility] 06-05-2024 10:06-0500 Diastolic blood pressure 71 mm[Hg] [facility] 06-05-2024 10:06-0500 Heart rate 90 /min [facility] 06-05-2024 10:06-0500 SaO2% (BldA) [Mass fraction] 97 % [facility] 06-05-2024 10:06-0500 Systolic blood pressure 117 mm[Hg] [facility] 04-21-2024 10:47-0500 Body height 158.75 cm [facility] 04-21-2024 10:47-0500 Body mass index (BMI) [Ratio] 24.7 kg/m2 [facility] 04-21-2024 10:47-0500 Body weight 62.25 kg [facility] 04-21-2024 10:47-0500 Diastolic blood pressure 71 mm[Hg] [facility] 04-21-2024 10:47-0500 Heart rate 86 /min [facility] 04-21-2024 10:47-0500 Systolic blood pressure 127 mm[Hg] [facility] 04-07-2024 10:41-0500 Body height 158.75 cm [facility] 04-07-2024 10:41-0500 Body mass index (BMI) [Ratio] 25 kg/m2 [facility] 04-07-2024 10:41-0500 Body weight 63.04 kg [facility] 04-07-2024 10:41-0500 Diastolic blood pressure 82 mm[Hg] [facility] 04-07-2024 10:41-0500 Heart rate 83 /min [facility] 04-07-2024 10:41-0500 Systolic blood pressure 173 mm[Hg] [facility] 01-29-2024 11:59-0400 Body height 158.75 cm [facility] 01-29-2024 11:59-0400 Body mass index (BMI) [Ratio] 24.8 kg/m2 [facility] 01-29-2024 11:59-0400 Body weight 62.59 kg [facility] 01-29-2024 11:59-0400 Diastolic blood pressure 84 mm[Hg] [facility] 01-29-2024 11:59-0400 Heart rate 78 /min [facility] 01-29-2024 11:59-0400 Systolic blood pressure 137 mm[Hg] [facility] 10-12-2023 15:00-0400 Hourly Rounding Regi Robenstine [facility] 10-12-2023 15:00-0400 Promise to Return Regi Robenstine [facility] 10-12-2023 14:00-0400 Hourly Rounding Regi Robenstine [facility] 10-12-2023 14:00-0400 Promise to Return Regi Robenstine [facility] 10-12-2023 13:00-0400 Hourly Rounding Regi Robenstine [facility] 10-12-2023 13:00-0400 Promise to Return Regi Robenstine [facility] 10-12-2023 11:28-0400 Heart rate 93 /min Regi Robenstine [facility] 10-12-2023 11:28-0400 SaO2% (BldA) [Mass fraction] 88 % Regi Robenstine [facility] 10-12-2023 11:27-0400 Diastolic blood pressure 60 mm[Hg] Regi Robenstine [facility] 10-12-2023 11:27-0400 Mean blood pressure 73 mm[Hg] Regi Robenstine [facility] 10-12-2023 11:27-0400 Systolic blood pressure 99 mm[Hg] Regi Robenstine [facility] 10-12-2023 11:26-0400 Body temperature 98.06 [degF] Regi Robenstine [facility] 10-12-2023 08:51-0400 Diastolic blood pressure 67 mm[Hg] Regi Robenstine [facility] 10-12-2023 08:51-0400 Heart rate 92 /min Regi Robenstine [facility] 10-12-2023 08:51-0400 Systolic blood pressure 116 mm[Hg] Regi Robenstine [facility] 10-12-2023 08:19-0400 Heart rate 86 /min Regi Robenstine [facility] 10-12-2023 08:19-0400 Respiratory rate 18 /min Regi Robenstine [facility] 10-12-2023 08:00-0400 Heart rate 85 /min Regi Robenstine [facility] 10-12-2023 08:00-0400 SaO2% (BldA) [Mass fraction] 98 % Regi Robenstine [facility] 10-12-2023 07:56-0400 SaO2% (BldA) [Mass fraction] 97 % Regi Robenstine [facility] 10-12-2023 07:55-0400 Diastolic blood pressure 67 mm[Hg] Regi Robenstine [facility] 10-12-2023 07:55-0400 Mean blood pressure 83 mm[Hg] Regi Robenstine [facility] 10-12-2023 07:55-0400 Systolic blood pressure 116 mm[Hg] Regi Robenstine [facility] 10-12-2023 07:55-0400 Body temperature 97.52 [degF] Regi Robenstine [facility] 10-12-2023 04:37-0400 Respiratory rate 18 /min Regi Robenstine [facility] 10-12-2023 03:10-0400 Body temperature 98.06 [degF] Regi Robenstine [facility] 10-12-2023 03:10-0400 Mean blood pressure 93 mm[Hg] Regi Robenstine [facility] 10-11-2023 08:49-0400 Heart rate 82 /min Regi Robenstine [facility] 10-11-2023 05:08-0400 Heart rate 87 /min Regi Robenstine [facility] 10-11-2023 05:00-0400 Blood Pressure Location Regi Robenstine [facility] 10-11-2023 05:00-0400 Body temperature 97.7 [degF] Regi Robenstine [facility] 10-11-2023 00:00-0400 Body temperature 97.52 [degF] Regi Robenstine [facility] 10-10-2023 08:33-0400 Heart rate 98 /min Regi Robenstine [facility] 10-10-2023 00:12-0400 Blood Pressure Location Regi Robenstine [facility] 10-10-2023 00:12-0400 Mean blood pressure 78 mm[Hg] Regi Robenstine [facility] 10-09-2023 19:31-0400 Blood Pressure Location Regi Robenstine [facility] 10-09-2023 18:25-0400 Mean blood pressure 108 mm[Hg] Regi Robenstine [facility] 10-09-2023 18:25-0400 Respiratory rate 17 /min Regi Robenstine [facility] 10-09-2023 18:15-0400 Mean blood pressure 101 mm[Hg] Regi Robenstine [facility] 10-09-2023 18:15-0400 Respiratory rate 13 /min Regi Robenstine [facility] 10-09-2023 18:10-0400 Respiratory rate 15 /min Regi Robenstine [facility] 10-09-2023 04:00-0400 Body temperature 97.52 [degF] Regi Robenstine [facility] 10-08-2023 18:41-0400 Heart rate 124 /min Regi Robenstine [facility] 10-08-2023 18:27-0400 Heart rate 122 /min Regi Robenstine [facility] 09-10-2023 09:34-0400 Body height 158.75 cm [facility] 09-10-2023 09:34-0400 Body mass index (BMI) [Ratio] 26.6 kg/m2 [facility] 09-10-2023 09:34-0400 Body weight 67.3 kg [facility] 09-10-2023 09:34-0400 Diastolic blood pressure 72 mm[Hg] [facility] 09-10-2023 09:34-0400 Heart rate 76 /min [facility] 09-10-2023 09:34-0400 Systolic blood pressure 122 mm[Hg] [facility] 10-16-2022 09:00-0400 Body height 158.75 cm Ximena Astudillo Other [employer] Other 10-16-2022 09:00-0400 Body mass index (BMI) [Ratio] 27.72 kg/m2 Ximena Astudillo Other [employer] Other 10-16-2022 09:00-0400 Body weight 69.85 kg Ximena Astudillo Other [employer] Other 10-16-2022 09:00-0400 Diastolic blood pressure 70 mm[Hg] Ximena Astudillo Other [employer] Other 10-16-2022 09:00-0400 Systolic blood pressure 132 mm[Hg] Ximena Astudillo Other [facility] [employer] Other 11-30-2021 08:09-0400 Diastolic blood pressure 92 mm[Hg] Lemus SALAM [facility] 11-30-2021 08:09-0400 Heart rate 86 /min Lemus SALAM [facility] 11-30-2021 08:09-0400 Systolic blood pressure 170 mm[Hg] Lemus SALAM [facility] Encounters Encounter Date Encounter Type Care Provider Facility Start: 06-05-2024 End: 06-05-2024 ambulatory [facility] Work Phone: Start: 06-05-2024 End: 06-05-2024 Patient encounter procedure Formerly [facility], [facility] Physician [facility] Work Phone: Start: 04-21-2024 End: 04-21-2024 Patient encounter procedure [facility] Work Phone: Start: 04-14-2024 Non-patient / Non-visit [facility] Work Phone: Start: 04-07-2024 End: 04-07-2024 Patient encounter procedure [facility] Work Phone: Start: 03-12-2024 Non-patient / Non-visit [facility] Work Phone: Start: 01-29-2024 End: 01-29-2024 ambulatory [facility] Work Phone: Start: 01-29-2024 End: 01-29-2024 Patient encounter procedure [facility] Work Phone: Start: 11-28-2023 End: 11-28-2023 ambulatory [facility] Not Available Start: 11-09-2023 Patient encounter procedure Andrea Alonso APRN.[employer] PROFESSOR Work Phone: [facility] Start: 11-09-2023 Progress Note Andrea MCLEAN RN.[employer] PROFESSOR Work Phone: [facility] Start: 11-07-2023 End: 11-07-2023 ambulatory [facility] Not Available Start: 11-05-2023 Patient encounter procedure Andrea Alonso APRN.[employer] PROFESSOR Work Phone: [facility] Start: 11-05-2023 Progress Note Andrea MCLEAN RN.[employer] RES[employer] PROFESSOR Work Phone: [facility] Start: 10-29-2023 Patient encounter procedure Andrea Alonso APRN.[employer] RES[employer] PROFESSOR Work Phone: [facility] Start: 10-29-2023 Progress Note Andrea MCLEAN RN.[employer] RESOURCES PROFESSOR Work Phone: [facility] Start: 10-25-2023 Patient encounter procedure Andrea Alonso CUSTOMER ADVISOR.[employer]OURCES PROFESSOR Work Phone: [facility] Start: 10-25-2023 Progress Note Andrea MCLEAN RN.[employer] RES[employer] PROFESSOR Work Phone: [facility] Start: 10-23-2023 Patient encounter procedure Andrea Alonso APRN.[employer] RESOURCES PROFESSOR Work Phone: [facility] Start: 10-23-2023 Progress Note Andrea MCLEAN RN.[employer] RES[employer] PROFESSOR Work Phone: [facility] Start: 10-23-2023 End: 10-23-2023 ambulatory CHANA LEMONS Not Available Start: 10-18-2023 Patient encounter procedure Andrea Alonso CUSTOMER ADVISOR.[employer] RESOURCES PROFESSOR Work Phone: [facility] Start: 10-18-2023 Progress Note Andrea MCLEAN RN.[employer]URAL RESOURCES PROFESSOR Work Phone: [facility] Start: 10-15-2023 Patient encounter procedure Itri Kisha Amilcar Work Phone: [facility] Start: 10-15-2023 Progress Note Itri A Amilcar Work Phone: [facility] [employer] Start: 10-08-2023 Evaluation and management of inpatient Regi Trang. Art Facility:[facility] Start: 10-08-2023 End: 10-12-2023 Evaluation and management of inpatient Regi Cordova Facility:[facility] Start: 10-08-2023 Emergency department patient visit Rigo Anderson Facility:[facility] Start: 10-08-2023 End: 10-12-2023 Evaluation and management of inpatient Regi Trang. [facility] Start: 09-10-2023 End: 09-10-2023 ambulatory [facility] Work Phone: Start: 09-10-2023 End: 09-10-2023 Patient encounter procedure Former[facility], [facility] Physician [facility] Work Phone: Start: 08-08-2023 Non-patient / Non-visit [facility] Physician [facility] [employer] Work Phone: Start: 01-22-2023 End: 01-22-2023 ambulatory Ximena Astudillo Other [employer] Other Start: 01-22-2023 Telephone encounter Ximena Astudillo [facility] Start: 10-18-2022 End: 10-18-2022 ambulatory Ximena Astudillo Other [employer] Other Start: 10-18-2022 Telephone encounter Ximena Baudilio [facility] Start: 10-17-2022 End: 10-17-2022 ambulatory Ximena Astudillo Other [employer] Other Start: 10-17-2022 Telephone encounter Ximena Astudillo [facility] Start: 10-16-2022 End: 10-16-2022 ambulatory Ximena Astudillo Other [place] [employer] Other Start: 10-16-2022 Office outpatient visit 25 minutes Ximena Astudillo [facility] Start: 08-19-2022 End: 08-19-[address] XIMENA ASTUDILLO Facility:[facility] Start: 05-10-2022 End: 05-10-[address] XIMENA ASTUDILLO Facility:[facility] Start: 01-19-2022 End: 01-19-[address] XIMENA ASTUDILLO Facility:[facility] Start: 11-30-2021 End: 11-30-2021 Patient encounter procedure Mariah HERNANDEZ [facility] Start: 11-04-2021 End: 11-04-2021 Patient encounter procedure Mariah JIMENEZAM [facility] Start: 10-18-2021 End: 10-19-[address] XIMENA ASTUDILLO Facility:[facility] Start: 09-27-2021 End: 09-28-[address] XIMENA ASTUDILLO Facility:[facility] Start: 09-23-2021 End: 09-23-[address] XIMENA ASTUDILLO Facility: Start: 09-21-2021 Patient encounter procedure Andrea Alonso APRN.NATURAL RESOURCES PROFESSOR Work Phone: [facility] Start: 09-21-2021 Progress Note Andrea MCLEAN RN.NATURAL RESOURCES PROFESSOR Work Phone: [facility] Start: 09-16-2021 Patient encounter procedure Andrea Alonso APRN.NATURAL RESOURCES PROFESSOR Work Phone: [facility] Start: 09-16-2021 Progress Note Andrea MCLEAN RN.NATURAL RESOURCES PROFESSOR Work Phone: [facility] Start: 09-14-2021 Patient encounter procedure Andrea Alonso APRN.NATURAL RESOURCES PROFESSOR Work Phone: [facility] Start: 09-14-2021 Progress Note Andrea MCLEAN RN.NATURAL RESOURCES PROFESSOR Work Phone: [facility] Start: 09-12-2021 Patient encounter procedure Itri Kisha Amilcar Work Phone: [facility] Start: 09-12-2021 Progress Note Itri A Amilcar Work Phone: [facility] Start: 09-05-2021 End: 09-11-2021 Evaluation and management of inpatient DR LENY MCCULLOUGH . Facility: Start: 07-25-2018 End: 07-25-2018 Patient encounter procedure Ximena Astudillo Facility:[facility] Start: 02-12-2017 End: 02-14-2017 Evaluation and management of inpatient WANDA WHEELER Facility:[facility] Procedures Date Procedure Procedure Detail Performing Clinician [...] 01-13-2024 Influenza vaccination Influenza Vaccine (Season Ended) [facility] Start: 2023 Advance Directive Discussion Advance Directive Discussion [facility] Start: 2023 Pneumococcal Vaccine: 65+ (1 of 1 - PCV) Pneumococcal Vaccine: 65+ (1 of 1 - PCV) [facility] Start: 2023 Screening for osteoporosis Bone Density Screening [facility] Start: 05-14-2023 Behavioral Health Screening Behavioral Health Screening [facility] Start: 01-12-2023 Covid-19 Vaccine ( season) Covid-19 Vaccine ( season) [facility] Start: 01-12-2022 Influ[facility] Start: 08-09-2021 DIABETES SCREEN DIABETES SCREEN [facility] Start: 08-09-2021 Diabetes Screening Diabetes Screening [facility] Start: 2018 RSV Vaccine (1 - 1-dose 60+ series) RSV Vaccine (1 - 1-dose 60+ series) [facility] Start: 2008 SHINGRIX VACCINE (1 of 2) SHINGRIX VACCINE (1 of 2) [facility] Start: 2003 COLOGUARD (FIT-DNA) COLOGUARD (FIT-DNA) [facility] Start: 2003 Colonoscopy COLONOSCOPY [facility] Start: 2003 COLORECTAL CANCER SCREENING COLORECTAL CANCER SCREENING [facility] Start: [address] COLONOGRAPHY [facility] Start: 2003 FECAL OCCULT BLOOD FECAL OCCULT BLOOD [facility] Start: 2003 Lipid panel Lipid Screening [facility] Start: 2003 LIPID SCREEN LIPID SCREEN [facility] Start: 2003 Screening for malignant neoplasm of colon [facility] Start: 2003 SIGMOIDOSCOPY SIGMOIDOSCOPY [facility] Start: 1998 Mammography MAMMOGRAM [facility] Start: 1998 Screening for malignant neoplasm of breast Mammogram Screening [facility] Start: 1988 HPV TESTING HPV TESTING [facility] Start: 1979 PAP TESTING PAP TESTING [facility] Start: 1977 Urine microalbumin profile [facility] Start: 1976 HEPATITIS C SCREENING HEPATITIS C SCREENING [facility] Start: 1976 Hepatitis C screening Hepatitis C Screening [facility] Start: 1976 HIV SCREENING HIV SCREENING [facility] Start: 1976 HIV screening HIV Screening [facility] Start: 1970 Adult depression screening assessment DEPRESSION SCREENING [facility] Start: 1963 COVID-19 VACCINE (#1) COVID-19 VACCINE (#1) [facility] Start: 1963 COVID-19 VACCINE (1) COVID-19 VACCINE (1) [facility] Comprehensive metabo lic 2000 panel - Serum or Plasma [facility] Microalbumin [Mass/volume] in Urine [facility] XR Chest 2 Views [facility] Immunizations Immunization Date Immunization Notes Care Provider Fa cility 01-29-2024 Pneumococcal Conjuga te Vaccine, 20 valent [facility] Payers Date Payer Category Payer Medicaid [facility] MEDICA[facility] MYC ARE [facility] MEDICA[facility] [id number] 2023-Present [phone] [address] [place] [address] Medicaid [id number] 2023 Medicare [facility] MEDICARE [facility] DUAL COMPLETE HMO POS SNP [id number] 2023-Present [phone] [address] [place] [address] Medicare [id number] 2023 Private Health Insurance [id number] 2018 Self-pay 2018 Medicaid [facility] MEDICAID [facility] [employer] MEDICAID [id number] 2018-Present [phone] [address] [place] [id number] Medicaid [id number] 1959 Medicaid [id number] 1959 Unknown [id number] 1958 Unknown [id number] 2.16.840.1.770888.3.579.2. 593 1958 Unknown [id number] 2.16.840.1.726673.3.579.2. 593 1958 Unknown [id number] 2.16.840.1.196151.3.579.2. 593 1958 Unknown [id number] 2.16.840.1.058301.3.579.2. 593 1958 Unknown [id number] 2.840.1.764775.3.579.2. 593 1958 Unknown [id number] 2.16.840.1.633797.3.579.2. 593 1958 Unknown [id number] 2.16.840.1.067248.3.579.2. 593 1958 Unknown [id number] 2.16.840.1.697971.3.579.2. 727 1958 Unknown [id number] 2.840.1.236121.3.579.2. 727 1958 Unknown [id number] 2.16.840.1.483095.3.579.2. 727 1958 Unknown [id number] 2.16.840.1.064973.3.579.2. 727 1958 Unknown [id number] 2.16.840.1.287500.3.579.2. 727 1958 Unknown [id number] 2.16.840.1.090767.3.579.2. 727 1958 Unknown [id number] 2.16.840.1.653481.3.579.2. 727 1958 Unknown [id number] 2.16.840.1.695839.3.579.2. 72 1958 Unknown [id number] 2.16.840.1.678296.3.579.2. 1958 Unknown [id number] 2.16.840.1.396541.3.579.2. 72 1958 Unknown [id number] 2.16.840.1.147751.3.579.2. 125 1958 Unknown [id number] 2.16.840.1.617816.3.579.2. 1258 1958 Unknown [id number] 2.16.840.1.458637.3.579.2. 1258 1958 Unknown [id number] 2.16.840.1.607121.3.579.2. 1258 1958 Unknown [id number] 2.16.840.1.169087.3.579.2. 1258 1958 Unknown [id number] 2.16.840.1.256994.3.579.2. 1258 1958 Unknown [id number] 2.16.840.1.192121.3.579.2. 1258 1958 Unknown [id number] 2.16.840.1.160796.3.579.2. 125 1958 Unknown [id number] 2.16.840.1.605908.3.579.2. 125 Unknown [id number] 2.16.840.1.145002.3.579.2. 531 Social History Date Type Detail Facility Start: [facility]-09-[facility] Start: 08-09-2018 Tobacco use and exposure Smokeless tobacco non-user [facility] Start: 1960 Sex Assigned At Not on file [facility] Start: 11-03-2021 End: 11-30-2021 Tobacco smoking status Light tobacco smoker (finding) [facility] Start: 09-09-2018 End: 04-20-2020 Sex Assigned At Female [facility] Start: 10-16-2022 End: 06-03-2024 Tobacco smoking status NHIS Smoker (finding) [facility] Start: 1960 Sex Assigned At Female F [facility] Start: 09-09-2018 End: 04-20-2020 History of Social function [facility] National Score (1-100), lower number is lower risk Not on file [facility] Start: 06-05-2024 Sex Female (finding) [facility] Medical Equipment Procedure Code Equipment Code [...] Assessment Result Facility 10-08-2023 Functional Status No [facility] 10-08-2023 Functional Status [facility] 11-30-2021 Functional Status N/A [facility] Clinical Notes 03-04-2018 to [...] pulmonary disease) acute June 05, 2024 10:05am [facility] Work Phone: 1(962) 368-873606-28-2024 History of Present illness Narrative* Andrea Alonso APRN.CNS - 11/09/2023 12:00 AM EDT [facility] NOTE NAME: CATHERINE ADAMSON [facility] NO.: [id number] DATE OF SERVICE: 11/09/2023 ATTENDING PHYSICIAN: VERENA Wallis [facility] Discharge Visit. DATE OF ADMISSION: October 12, 2023. DATE OF DISCHARGE: October. REASON FOR VISIT: The patient is a resident of [facility]. This is a discharge visit for fracture radius and ulna and fracture of the right femur, subsequent encounter with other medical concerns. The patient was admitted to [facility] from [facility] after fall, resulting in fracture of the right radius and ulna, and fracture of the right femur. The patient's stay at [facility] did have its events. The patient [...] 31 minutes. DICTATED BY: VERENA Wallis/AQT JOB# [id number] [facility]-2024 NoteHNO ID: [id number] Author: ANDREA ALONSO APRN.VERENA Service: ? Author Type: Nurse Specialist Type: Progress Notes Filed: 11/12/2023 07:28 Note Text: [facility] NOTE NAME: CATHERINE ADAMOSN [facility] NO.: [id number] DATE OF SERVICE: 11/09/2023 ATTENDING PHYSICIAN: VERENA Wallis [facility] Discharge Visit. DATE OF ADMISSION: October 12, 2023. DATE OF DISCHARGE: October. REASON FOR VISIT: The patient is a resident of [facility]. This is a discharge visit for fracture radius and ulna and fracture of the right femur, subsequent encounter with other medical concerns. The patient was admitted to [facility] from [facility] after fall, resulting in fracture of the right radius and ulna, and fracture of the right femur. The patient's stay at [facility] did have its events. The patient [...] 31 minutes. DICTATED BY: VERENA Wallis/LUIS JOB# [id number] [facility] Elect (more content not included)...[facility]06-24-2024 History of Present illness Narrative* Andrea Alonso APRN.VERENA - 11/05/2023 12:00 AM EDT [facility] NOTE NAME: NANCY ADAMSONE [facility] NO.: [id number] DATE OF SERVICE: 11/05/2023 ATTENDING PHYSICIAN: VERENA Wallis [facility] Chart Note REASON FOR VISIT: The patient is a resident of [facility]. This is a skilled visit for [...] chloride daily. DICTATED BY: VERENA Wallis/AQT JOB# [id number] [facility] documented in this encounterWay[facility]06-24-2024 NoteHNO ID: [id number] Author: ANDREA ALONSO APRN.VERENA Service: ? Author Type: Nurse Specialist Type: Progress Notes Filed: 11/07/2023 07:02 Note Text: [facility] NOTE NAME: CATHERINE ADAMSON [facility] NO.: [id number] DATE OF SERVICE: 11/05/2023 ATTENDING PHYSICIAN: VERENA Wallis [facility] Chart Note REASON FOR VISIT: The patient is a resident of [facility]. This is a skilled visit for [...] chloride daily. DICTATED BY: VERENA Wallis/SURINDERT JOB# [id number] [facility]06-17-2024 History of Present illness Narrative* Andrea Alonso, ROSETTA.VERENA - 10/29/2023 12:00 AM EDT [facility] NOTE NAME: CATHERINE ADAMSON [facility] NO.: [id number] DATE OF SERVICE: 10/29/2023 ATTENDING PHYSICIAN: VERENA Wallis [facility] Chart Note REASON FOR VISIT: The patient is a resident of [facility]. This is a skilled visit for fracture of the right radius and ulna and fracture of the right femur, subsequent encounter with routine healing. Upon entering the room, found the patient calm, alert, lying in semi-Saenz's position. The patient does not appear to be in distress or discomfort at this time. It has been recognized by [employer] that insurances will be cutting the patient, [...] sodium chloride. DICTATED BY: VERENA Wallis/SURINDERT JOB# [id number] [facility] documented in this encounterWay[facility]06-17-2024 NoteHNO ID: [id number] Author: ANDREA ALONSO APRN.NATURAL RESOURCES PROFESSOR Service: ? Author Type: Nurse Specialist Type: Progress Notes Filed: 11/02/2023 07:03 Note Text: [facility] NOTE NAME: CATHERINE ADAMSON [facility] NO.: [id number] DATE OF SERVICE: 10/29/2023 ATTENDING PHYSICIAN: VERENA Wallis [facility] Chart Note REASON FOR VISIT: The patient is a resident of [facility]. This is a skilled visit for fracture of the right radius and ulna and fracture of the right femur, subsequent encounter with routine healing. Upon entering the room, found the patient calm, alert, lying in semi-Saenz's position. The patient does not appear to be in distress or discomfort at this time. It has been recognized by [employer] that insurances will be cutting the patient, [...] sodium chloride. DICTATED BY: VERENA Wallis/AQT JOB# [id number] [facility]06-13-2024 History of Present illness Narrative* Andrea Alonso APRN.VERENA - 10/25/2023 12:00 AM EDT [facility] NOTE NAME: CATHERINE ADAMSON [facility] NO.: [id number] DATE OF SERVICE: 10/25/2023 ATTENDING PHYSICIAN: VERENA Wallis [facility] Chart Note REASON FOR VISIT: The patient is a resident of [facility]. This is a skilled visit for [...] this walker. DICTATED BY: VERENA Wallis/LUIS JOB# [id number] [facility] documented in this encounterWay[facility]06-13-2024 NoteHNO ID: [id number] Author: ANDREA ALONSO APRN.NATURAL RESOURCES PROFESSOR Service: ? Author Type: Nurse Specialist Type: Progress Notes Filed: 10/29/2023 07:07 Note Text: [facility] NOTE NAME: CATHERINE ADAMSON [facility] NO.: [id number] DATE OF SERVICE: 10/25/2023 ATTENDING PHYSICIAN: VERENA Wallis [facility] Chart Note REASON FOR VISIT: The patient is a resident of [facility]. This is a skilled visit for [...] this walker. DICTATED BY: VERENA Wallis/AQT JOB# [id number] [facility]06-11-2024 History of Present illness Narrative* Andrea Alonso APRN.VERENA - 10/23/2023 12:00 AM EDT [facility] NOTE NAME: CATHERINE ADAMSON [facility] NO.: [id number] DATE OF SERVICE: 10/23/2023 ATTENDING PHYSICIAN: VERENA Wallis [facility] Chart Note REASON FOR VISIT: The patient is a resident of [facility]. This is a skilled visit for [...] chloride tab. DICTATED BY: VERENA Wallis/LUIS JOB# [id number] [facility] documented in this encounterWay[facility]06-11-2024 NoteHNO ID: [id number] Author: ANDREA ALONSO APRN.VERENA Service: ? Author Type: Nurse Specialist Type: Progress Notes Filed: 10/26/2023 07:07 Note Text: [facility] NOTE NAME: CATHERINE ADAMSON [facility] NO.: [id number] DATE OF SERVICE: 10/23/2023 ATTENDING PHYSICIAN: Andrea Alonso, VERENA [facility] Chart Note REASON FOR VISIT: The patient is a resident of [facility]. This is a skilled visit for [...] chloride tab. DICTATED BY: VERENA Wallis/AQT JOB# [id number] [facility]06-06-2024 History of Present illness Narrative* Andrea Alonso APRN.VERENA - 10/18/2023 12:00 AM EDT [facility] NOTE NAME: CATHERINE ADAMSON [facility] NO.: [id number] DATE OF SERVICE: 10/18/2023 ATTENDING PHYSICIAN: VERENA Wallis [facility] Chart Note REASON FOR VISIT: The patient is a resident of [facility]. This is a skilled visit for [...] normal range. DICTATED BY: VERENA Wallis/LUIS JOB# [id number] [facility] documented in this encounterWayne [facility]06-06-2024 NoteHNO ID: [id number] Author: ANDREA ALONSO APRN.VERENA Service: ? Author Type: Nurse Specialist Type: Progress Notes Filed: 10/22/2023 07:58 Note Text: [facility] NOTE NAME: CATHERINE ADAMSON [facility] NO.: [id number] DATE OF SERVICE: 10/18/2023 ATTENDING PHYSICIAN: VERENA Wallis [facility] Chart Note REASON FOR VISIT: The patient is a resident of [facility]. This is a skilled visit for [...] normal range. DICTATED BY: VERENA Wallis/SURINDERT JOB# [id number] [facility]06-03-2024 NoteMicrobiology PROCEDURE: Blood Culture Charcoal [R1] SOURCE: Blood BODY SITE: Hand L COLLECTED DATE/TIME: 10/08/2023 15:28 EDT RECEIVED DATE/TIME: 10/08/2023 15:39 EDT START DATE/TIME: 10/08/2023 15:39 EDT FREE TEXT SOURCE: Rigo Anderson DO, DO, John FINAL REPORTS Final Report [] Verified Date/Time: 10/15/2023 18:00 EDT No growth at 7 days. Performing Locations R1: This test was performed at: [facility], [address] [place] [address], [address] [place] [address], [address] [place], [place] [address]Comment on above:Performed By: #### [id number] #### [facility] [address] [place] [address] [id number] NoteMicrobiology PROCEDURE: Blood Culture Charcoal [R1] SOURCE: Blood BODY SITE: Arm R COLLECTED DATE/TIME: 10/08/2023 15:35 EDT RECEIVED DATE/TIME: 10/08/2023 15:39 EDT START DATE/TIME: 10/08/2023 15:39 EDT FREE TEXT SOURCE: Rigo Anderson DO, DO, John FINAL REPORTS Final Report [] Verified Date/Time: 10/15/2023 18:00 EDT No growth at 7 days. Performing Locations R1: This test was performed at: [facility], [address] [place] [address], [address] [place] [address], [address] [place], [place] [address]Comment on above:Performed By: #### [id number] #### [facility] [address] [place] [address] [phone] History of Present illness Narrative* Lydia Calderón - 10/15/2023 12:00 AM EDT [facility] NOTE NAME: CATHERINE ADAMSON [facility] NO.: [id number] DATE OF SERVICE: 10/15/2023 ATTENDING PHYSICIAN: Lydia Calderón MD [facility] NEW PATIENT HISTORY AND PHYSICAL: HISTORY OF PRESENT ILLNESS: The patient is a 63-year-old female, was admitted to us from [facility] with the diagnosis of status post surgical [...] therapy. DICTATED BY: MD PEYTON Burch/LUIS JOB# [id number] [facility] documented in this encounterWayne [facility]06-03-2024 NoteHNO ID: [id number] Author: LYDIA CALDERÓN, ? Service: ? Author Type: Physician Type: Progress Notes Filed: 10/17/2023 11:13 Note Text: [facility] NOTE NAME: CATHERINE ADAMSON [facility] NO.: [id number] DATE OF SERVICE: 10/15/2023 ATTENDING PHYSICIAN: Lydia Calderón MD [facility] NEW PATIENT HISTORY AND PHYSICAL: HISTORY OF PRESENT ILLNESS: The patient is a 63-year-old female, was admitted to us from [facility] with the diagnosis of status post surgical [...] the hospital. Monitor fl (more content not included)...[facility]06-02-2024 [place] [address] CATHERINE ADAMSON Date of : 1960 63 [...] IV, Stop: 11/08/23 18:15:00 (more content not included)...[facility]:Result Comment: Electronically Signed By: Mckenzie Lerma PA-C\.br\Date and Time Signed: 10/12/23 11:39 EDT\.br\Electronically Co-Signed By: Regi Cordova MD\.br\Date and Time Co-Signed: 10/14/23 12:17 [id number] Hospital Discharge instructions Patient Education 10/12/2023 11:32:57 [...] provider. Document Revised: 07/19/2020 Document Reviewed: 07/19/2020 [employer] Patient Education 2022 [employer] 10/12/2023 11:32:55 How to Use an [...] provider. Document Revised: 07/19/2020 Document Reviewed: 07/19/2020 [employer] Patient Education 2022 [employer] 10/12/2023 09:52:37 Hip Fracture Hip Fracture [...] your health care provider. General instructions Take kdfm-ovv-kaudyxx and prescription medicines only as told by [...] provider. Document Revised: 12/31/2020 Document Reviewed: 12/31/2020 [employer] Patient Education 2021 [employer] 10/12/2023 09:52:23 Colles Fracture Colles Fracture A [...] by your health care provider. Medicines Take gfab-tei-iwzvzwj and prescription medicines only as told by your health care provider. Ask your health care provider if the medicine prescribed to you: ?Requires you to avoid driving or using machinery. ?Can cause constipation. You may need to take these actions to prevent or treat constipation: ?Drink enough fluid to keep your urine pale yellow. ?Take tytr-ozn-dtjuzwq or prescription medicines. ?Eat foods that are [...] provider. Document Revised: 08/09/2020 Document Reviewed: 08/09/2020 [employer] Patient Education 2022 [employer] Follow Up Care 10/08/2023 11:57:47 With:Chana Lemons Address: [address] [place], [place] [id number] Business (1) When: Unknown Comments:Call for followup appointment 2-3 weeks for staple removal right hip and recheck right wrist and hip. With:XIMENA ASTUDILLO Address: [address] [place] [id number] Business (1) When: Unknown [facility]05-31-2024 NoteBedside report [facility] Discharge summary, SBAR, med rec, and scripts faxed over to facility. Mini chart and rest of original paperwork to be sent with PENDING SALE TO [facility] rib cutter when patient is picked up around 1pm. Marci DICKINSON updated on POC.[facility]05-30-2024 Evaluation + Plan noteExtracted from: Title:Right [...] 2022 Author:Gary Álvarez Jr, DO Date:10/09/23 Plan [place] [employer] (ASA) physical status classification: [...] mL/kg bolus based on ideal body weight. [facility]05-30-2024 Cammy Cyr PA-C, dictating for Chana Lemons [...] both the right wrist and hip. Adolfo Gauhtier Dictated: 10/10/2023 [id number] Transcribed: 10/10/2023[facility]Comment on above:Result Comment: Electronically Signed By: Chana Lemons DO\.br\Date and Time Signed: 10/11/23 07:07 [id number] NotePT Evaluation completed with an AMPA score of 02/04. Pt requires Mod/MaxA x 2 to sit EOB and neededMod A x 2 to stand. Pt was able to rest on platform walker, but unable to ambulate at this time due to pain. Will follow daily, but SNF recommended as pt unsafe to return home [facility]05-28-2024 NoteHOSPITAL REGULATIONS: All Positive and Important [...] on postoperative day one pending laboratory studies. [employer] for rehabi litation placement, physical therapy for postoperative protocol. Consent form is signed and witnessed. We discussed the pros, cons, risks, benefits of both procedures. These will be done concomitantly together in the same Operating Room setting. This has the potential for infec (more content not included)...[facility] HospitalComment on above:Result Comment: Electronically Signed By: Chana Lemons DO\Date and Time Signed: 10/09/23 16:40 [id number] Note TRAUMA CONSULT / H&P Patient Name: CATHERINE ADAMSON Admission Date: 10/08/2023 11:57:18 Chief Complaint: Fall from standing Patient seen and examined on 10/08/2023 14:25:30 BASIC INJURY INFORMATION: Level of activation: Trauma Consult Mode of transport: [facility] Mechanism of injury: Fall Complicating [...] palpitations, no? edema. [place] (more content not included)...[facility]Comment [facility]: Result Comment: Electronically Signed By: Jamison HAGAN, Aubrey De La Garza\.br\Date and Time Signed: 10/08/23 15:36 EDT\.br\Electronically Co-Signed By: Art GARCIA, Regi Alvarez\.br\Date and Time Co-Signed: 10/09/23 10:21 [id number] Evaluation note* Encounter Date Diagnosis Assessment Notes Treatment Notes Treatment Clinical Notes Oct, COPD, moderate (ICD-10 - J44.9) [employer] Other 06-05-2023 Evaluation note* Encounter Date Diagnosis [...] (ICD-10 - E78.5) chronic - recheck labs. [place] [employer] Other 05-11-2022 History of Present illness Narrative* Andrea Alonso APRN.NATURAL RESOURCES PROFESSOR - 09/21/2021 12:00 AM EDT [facility] NOTE NAME: NANCY ADAMSONLIZ NO.: [id number] DATE OF SERVICE: 09/21/2021 [facility] DATE OF : 1960 REASON FOR VISIT: The patient is a resident of [facility]. This is a discharge visit for multiple right-sided rib fractures with traumatic pneumothorax, subsequent encounter. The patient was sent from [facility] to [facility] for therapy services after patient had a fall due to dizziness, lightheadedness. The patient's stay at [facility] was without its event. The patient states she has no complaints of going home. States does have support of family and friends at home and has no concerns of going home. DATE OF ADMISSION: September 11, 2021. DATE OF DISCHARGE: September 21, 2021. HISTORY OF PRESENT ILLNESS FROM ADMISSION: The patient is a 61-year-old female who is admitted to us from [facility] with a diagnosis of recurrent syncopal falls, [...] or syncopal episodes since being admitted to [facility]. The patient states does have a [...] 31 minutes. DICTATED BY: ELSY Wallis/Levi JOB# [id number] cc:[facility] documented in this encounterWayne Healthcare Main Campus05-06-2022 History of Present illness Narrative* Andrea Alonso APRN.CNS - 09/16/2021 12:00 AM EDT [facility] NOTE NAME: KRYSTLE ADAMSONELVER NO.: [id number] DATE OF SERVICE: 09/16/2021 [facility] DATE OF : 1960 REASON FOR VISIT: The patient is a resident of [facility]. This is a skilled visit for [...] this visit. DICTATED BY: ELSY Wallis JOB# [id number] cc:[facility] documented in this encounterWayne Healthcare Main Campus05-04-2022 History of Present illness Narrative* Andrea Alonso APRN.CNS - 09/14/2021 12:00 AM EDT [facility] NOTE NAME: KANE ADAMSON.: [id number] DATE OF SERVICE: 09/14/2021 [facility] DATE OF : 1960 REASON FOR VISIT: The patient is a resident of [facility]. This is a skilled visit for [...] had no syncopal episodes since being at [facility]. The patient states nonausea, and has [...] has had no syncopalepisodes since being at [facility]. The patient is currently under fall [...] and atorvastatin. DICTATED BY: ELSY Wallis/Levi JOB# [id number] cc:[facility] documented in this encounterWayne Healthcare Main Campus05-02-2022 History of Present illness Narrative* Dorenei Kisha Amilcar - 09/12/2021 12:00 AM EDT [facility] NOTE NAME: CAIN ADAMSONYOLANDA NO.: [id number] DATE OF SERVICE: 09/12/2021 [facility] DATE OF : 1960 NEW PATIENT HISTORY AND PHYSICAL HISTORY OF PRESENT ILLNESS: The patient is a 61-year-old female who was admitted to us from [facility] with the diagnoses of recurrent syncopal falls, [...] therapy. DICTATED BY: MD PEYTON Ag/Levi JOB# [id number] cc:[facility] documented in this encounterWayne Healthcare Main Campus04-25-2022 NotePROCEDURE: XR KNEE RT 4V or > COMPARISON: None. HISTORY: MUSCLE WEAKNESS (GENERALIZED) FINDINGS: BONES:No acute fracture or dislocation. Moderate to severe tricompartmental osteoarthropathy with extensive marginal osteophyte formation. Severe narrowing of the medial joint space. SOFT TISSUES:Negative. No visible soft tissue swelling. EFFUSION:Moderate joint effusion OTHER: Negative. IMPRESSION: Severe osteoarthritis with joint effusion Electronically authenticated by: PAWAN GEORGE Date: 2021-09-05 13:50[facility] [id number] Evaluation note* Diagnosis Onset Date Resolution Status Essential (primary) hypertension March 04, 2018 acute [facility] Work Phone: Evaluation + Plan note Future Appointments Appointment Date:11/30/2021 08:15:00 AM Scheduled Provider:Mariah HERNANDEZ MD Location:[facility] Type:[facility] Future Appointments Appointment Date:01/04/2022 12:50:00 PM Scheduled Provider: Location:[facility] Appointment Type:Surgery FT Future Scheduled Tests Laboratory* Hepatic Function Panel 11/30/21 [facility] Evaluation noteNo InformationNort [employer] Other Evaluation noteNo assessment information available [facility] Work Phone: Hisnfle general Narrative - Reported* Type Description Date Medical History COPD Medical History CAD/AR Medical History HYPONATREMIA Medical History HTN Medical History OA Medical History HEART ATTACK Surgical History RIGHT KNEE ATHROSCOPIC SURGERY Surgical History CARDIAC STENT 02/2017 Hospitalization History SEE ABOVE Hospitalization History ABNORMAL ELECTOLYTES 12/13 018 [employer] Other Hospital course Narrative No data available for this section [facility] No data available for this section [facility] No data available for this section [facility] Summary Purpose Family History Relationship Condition Age [...] section and content) DATE CREATED AUTHOR 11/06/2017 [facility] DATE CREATED AUTHOR AUTHOR'S ORGANIZ ATION 07/27/2018 [facility] DATE CREATED AUTHOR AUTHOR'S ORGANIZ ATION 08/22/2022 [facility] DATE CREATED AUTHOR AUTHOR'S ORGANIZ ATION 10/08/2023 Pineda Mike [facility] DATE CREATED AUTHOR AUTHOR'S ORGANIZ ATION 10/09/2023 Pineda Mike [facility] DATE CREATED AUTHOR AUTHOR'S ORGANIZ ATION 10/10/2023 [facility] DATE CREATED AUTHOR AUTHOR'S ORGANIZ ATION 10/11/2023 Pineda [facility] DATE CREATED AUTHOR AUTHOR'S ORGANIZ ATION 10/12/2023 Pined[facility] [place] [facility] DATE CREATED AUTHOR AUTHOR'S ORGANIZ ATION 10/14/2023 Pineda [facility] DATE CREATED AUTHOR AUTHOR'S ORGANIZ ATION 10/16/2023 [facility] DATE CREATED AUTHOR AUTHOR'S ORGANIZ ATION 10/31/2023 Pineda Mike [facility] DATE CREATED AUTHOR AUTHOR'S ORGANIZ ATION 11/12/2023 [facility] DATE CREATED AUTHOR AUTHOR'S ORGANIZ ATION 12/01/2023 [facility] EPIC Source Comments (unrecognize d section and content) In the event this informatio n is protected by the Federal Confidentiality of Alcohol and Drug Abuse Patient Records regulations: The Federal rules restrict any use of the information to criminally investigate or prosecute any alcohol or drug abuse patient.[facility] CampusIn the event this information is protected by the Federal Confidentiality of Alcohol and Drug Abuse Patient Records regulations: The Federal rules restrict any use of the information to criminally investigate or prosecute any alcohol or drug abuse patient.[facility] CampusIn the event this information is protected by the Federal Confidentiality of Alcohol and Drug Abuse Patient Records regulations: The Federal rules restrict any use of the information to criminally investigate or prosecute any alcohol or drug abuse patient.[facility] CampusIn the event this information is protected by the Federal Confidentiality of Alcohol and Drug Abuse Patient Records regulations: The Federal rules restrict any use of the information to criminally investigate or prosecute any alcohol or drug abuse patient.[facility] CampusIn the event this information is protected by the Federal Confidentiality of Alcohol and Drug Abuse Patient Records regulations: The Federal rules restrict any use of the information to criminally investigate or prosecute any alcohol or drug abuse patient.[facility] CampusIn the event this information is protected by the Federal Confidentiality of Alcohol and Drug Abuse Patient Records regulations: The Federal rules restrict any use of the information to criminally investigate or prosecute any alcohol or drug abuse patient.[facility] CampusIn the event this information is protected by the Federal Confidentiality of Alcohol and Drug Abuse Patient Records regulations: The Federal rules restrict any use of the information to criminally investigate or prosecute any alcohol or drug abuse patient.[facility] CampusIn the event this information is protected by the Federal Confidentiality of Alcohol and Drug Abuse Patient Records regulations: The Federal rules restrict any use of the information to criminally investigate or prosecute any alcohol or drug abuse patient.[facility] CampusIn the event this information is protected by the Federal Confidentiality of Alcohol and Drug Abuse Patient Records regulations: The Federal rules restrict any use of the information to criminally investigate or prosecute any alcohol or drug abuse patient.[facility] CampusIn the event this information is protected by the Federal Confidentiality of Alcohol and Drug Abuse Patient Records regulations: The Federal rules restrict any use of the information to criminally investigate or prosecute any alcohol or drug abuse patient.[facility] CampusIn the event this information is protected by the Federal Confidentiality of Alcohol and Drug Abuse Patient Records regulations: The Federal rules restrict any use of the information to criminally investigate or prosecute any alcohol or drug abuse patient.[facility] Care Teams (unrecognized sec tion and content) [...] January 29, 2024 End: January 29, 2024 Sleep Lab Technologist Relationship Specialty Start Date End Date Judy Baltazar [address] [place] [address] PCP - General Nephrology 07/18/18 Ximena Astudillo MD [address] [place] [id number] [facility] 09/09/18 Team Status: Active Member Role Status Dates Ximena Astudillo MD Primary Care Provider Active Start: August 08, 2023 AUDRA Feliz Attending Provider Active Start : August 08, 2023 Team Status: Inactive Member Role Status Dates Ximena Astudillo MD Primary Care Provide r, Attending Provider Active Start: September 10, 2023 End: September 10, 2023 Sleep Lab Technologist Relationship Specialty Start Date End Date Judy Baltazar MD [address] [place] [address] PCP - General Nephrology 07/18/18 Ximena Astudillo MD [address] [place] [address] Referring Family Medicine 09/09/18 Sleep Lab Technologist Relationship Specialty Start Date End Date Judy Baltazar MD [address] [place] [address] PCP - General Nephrology 07/18/18 Ximena Astudillo MD [address] [place] [address] Referring Family Medicine 09/09/18 Team Status: Active Member Role Status Dates Ximena Astudillo MD Primary Care Provide r, Attending Provider Active Start: March 12, 2024 Team Status: Inactive Member Role Status Dates Ximena Astudillo MD Primary Care Provide r, Attending Provider Active Start: April 07, 2024 End: April 07, 2024 Team Status: Active Member Role Status Dates Ximena Astuidllo MD Primary Care Provider Active Start: April [...] BE BASED ON THE PRIMARY CLINICAL RECORDS. [facility]. provides no warranty or guarantee of the accuracy or completeness of information in this document.
--- NOTE | 2024-06-28 15:04 | XR_ITS ---
The [address] [address] Patient Name: LAURA ADAMSON MRN: [id number] date: 1960 Sex: F Assigned Patient Location: ER Current Patient Location: ER Accession/Order Number: [id number] Exam Date: 06/28/2024 15:15 Report Date: 06/28/2024 16:01 At the request of: JULIAN OLMOS Procedure: XR chest 1V EXAM: XR chest 1V HISTORY: Weak COMPARISON: 06/24/2024 TECHNIQUE: Chest X-ray AP, 1 view FINDINGS: Support devices: None. Lungs/pleura: No consolidation, effusion, or pneumothorax. Heart and mediastinum: Normal contours. Bones: No acute abnormality identified. XR/XR chest 1V Impression: No radiographic evidence of acute cardiopulmonary process. Electronically authenticated by: BI PHAN Date: 06/28/2024 16:01
--- NOTE | 2024-06-28 15:04 | ECG_ITS ---
The [facility] Test Date: 2024-06-28 Pat Name: LAURA ADAMSON Department: Room: - Gender: Female Research Clerk: : 1960 Requested By: XIMENA ASTUDILLO Order Number: [id number] Reading MD: ASHLEY CAMPOS Measurements Intervals [place] Rate: 133 P: 41 CT: 152 QRS: 42 QRSD: 72 T: 270 QT: 260 QTc: 338 Interpretive Statements 1120 Sinus tachycardia [address] depression 4564 Twave abnormality, can't exclude inferolateral ischemia 8102 Low QRS voltage in chest leads 8305 Short QTc interval 9150 abnormal ECG Compared to ECG 06/24/2024 23:53:50 t Electronically Signed On 06-29-2024 16:30:09 EST by ASHLEY CAMPOS
--- NOTE | 2024-06-28 15:07 | ED.GENADUL1 ---
HPI HPI - General Adult General Chief complaint: Fall Stated complaint: FALL Time Seen by Provider: 06/28/24 14:52 Source: patient, medical record and other Source information: EMS Mode of arrival: ambulance History of Present Illness HPI narrative: 64-year-old female presents for weakness and a fall. She apparently fell off the toilet. She did not hit her head. She drinks alcohol every day and was drinking her typical Budweiser today. She was recently admitted and at that time had alcohol intoxication and anemia and required transfusion. She does not complain of chest pain or shortness of breath or abdominal pain. Related Data Home Medications ?Medication ?Instructions ?Recorded ?Confirmed albuterol sulfate 90 mcg/actuation 2 puff inhalation Q6H PRN 06/24/24 06/24/24 aerosol inhaler shortness of breath or wheezing aspirin 81 mg tablet,delayed 81 mg PO DAILY 06/24/24 06/24/24 release budesonide-formoterol HFA 160 2 puff inhalation Q12H 06/24/24 06/24/24 mcg-4.5 mcg/actuation aerosol inhaler (Symbicort) clopidogrel 75 mg tablet 75 mg PO DAILY 06/24/24 06/24/24 metoprolol succinate 25 mg 25 mg PO DAILY 06/24/24 06/24/24 tablet,extended release 24 hr nifedipine 30 mg tablet,extended 30 mg PO DAILY 06/24/24 06/24/24 release 24 hr potassium chloride 10 mEq 10 meq PO DAILY 06/24/24 06/24/24 tablet,extended release Previous Rx's ?Medication ?Instructions ?Recorded pantoprazole 40 mg tablet,delayed 40 mg PO DAILY #30 tabs 06/26/24 release (Protonix) Allergies Allergy/AdvReac Type Severity Reaction Status Date / Time No Known Drug Allergies Allergy Verified 06/28/24 14:56 Opioid HPI Opioid Management Most Recent Opioid Data: Last Pain Scale 7 06/26/24 17:22 06/26/24 Last Pain Assessment 06/26/24 17:00 Last ORT Total Score 3 06/25/24 00:59 06/25/24 Last ORT Risk Category Low Risk 06/25/24 00:59 06/25/24 Review of Systems ROS Narrative A ten point review of systems is negative except as noted above. PFSH PFSH Social History Highest level of school completed/degree received: 10th grade Little interest or pleasure in doing things: not at all Feeling down, depressed, or hopeless: not at all Exam Narrative Exam Narrative: Nurses note and vital signs reviewed and patient is not hypoxic. General: The patient appears well and in no apparent distress. Patient is resting comfortably on cart. Skin: Warm, dry, no pallor noted. There is no rash noted. Head: Normocephalic, atraumatic Eye: Normal conjunctiva, no drainage Ears, Nose, Mouth, and Throat: oral mucosa is somewhat dry. Nares patent. Cardiovascular: Regular Rate and Rhythm, tachycardic Respiratory: Patient is in no distress, no accessory muscle use, lungs are clear to auscultation, no wheezing, rales or rhonchi Back: non-tender GI: Soft and nontender Musculoskeletal: The patient has no evidence of calf tenderness, no pitting edema, symmetrical pulses noted bilaterally Neurological: A&O, normal speech Psychiatric: Cooperative Constitutional Vital Signs, click to edit/add: Last Vital Signs Temp 99.3 F 06/28/24 14:50 Pulse 133 H 06/28/24 14:50 Resp 30 H 06/28/24 14:50 BP 103/55 06/28/24 14:50 Pulse Ox 92 L 06/28/24 15:13 O2 Del Method Room Air 06/28/24 15:13 O2 Flow Rate 2 06/28/24 15:13 Course Vital Signs Vital signs: Vital Signs Temperature 99.3 F 06/28/24 14:50 Pulse Rate 133 H 06/28/24 14:50 Respiratory Rate 30 H 06/28/24 14:50 Blood Pressure 103/55 06/28/24 14:50 Pulse Oximetry 98 06/28/24 14:50 Oxygen Delivery Method Nasal Cannula 06/28/24 14:50 Oxygen Delivery Flow Rate 2 06/28/24 14:50 Temperature 99.3 F 06/28/24 14:50 Pulse Rate 133 H 06/28/24 14:50 Respiratory Rate 30 H 06/28/24 14:50 Blood Pressure 103/55 06/28/24 14:50 Pulse Oximetry 92 L 06/28/24 15:13 Oxygen Delivery Method Room Air 06/28/24 15:13 Oxygen Delivery Flow Rate 2 06/28/24 15:13 Medical Decision Making MDM Narrative Medical decision making narrative: The patient has sinus tachycardia, persistent despite IV fluids. The possibility of alcohol withdrawal was entertained. Other than a sodium of 131 and a hemoglobin of 8.9 her blood work is unremarkable. Her hemoglobin is higher than it was this past week when she was admitted. Treatment diagnosis and disposition were discussed with the patient. Differential Diagnosis Differential Diagnosis: Alcohol withdrawal, dehydration, acute kidney injury, alcohol abuse Lab Data Lab results reviewed: Yes I reviewed the patient's lab results Labs: Lab Results 06/28/24 Range/Units 15:11 WBC 10.5 (4.0-11.0) 10^3/uL RBC 2.87 L (4.20-5.40) 10^6/uL Hgb 8.9 L (12.0-16.0) g/dL Hct 28.2 L (36.0-48.0) % MCV 98.3 (81.0-99.0) fL MCH 31.0 (26.7-34.0) pg MCHC 31.6 (29.9-35.2) g/dL RDW 15.3 H (11.0-15.0) % Plt Count 251 (150-450) 10^3/uL MPV 9.2 L (9.5-13.5) fL Neut % (Auto) 85.8 H (43.0-75.0) % Lymph % (Auto) 4.2 L (20.5-60.0) % [place] % (Auto) 9.0 (1.7-12.0) % Eos % (Auto) 0.1 L (0.9-7.0) % Baso % (Auto) 0.3 (0.2-2.0) % Neut # (Auto) 9.0 H (1.4-6.5) 10^3/uL Lymph # (Auto) 0.4 L (1.2-3.8) 10^3/uL [place] # (Auto) 0.9 H (0.3-0.8) 10^3/uL Eos # (Auto) 0.0 (0.0-0.7) 10^3/uL Baso # (Auto) 0.0 (0.0-0.1) 10^3/uL Abs Immat Gran (auto) 0.06 H (0.00-0.03) 10^3/uL Imm/Tot Granulo (auto) 0.6 H (0.0-0.5) % Sodium 131 L (136-145) mmol/L Potassium 3.5 (3.5-5.1) mmol/L Chloride 99 (98-107) mmol/L Carbon Dioxide 21.2 (21.0-32.0) mmol/L Anion Gap 14.3 BUN 7.0 (7.0-18.0) mg/dL Creatinine 0.77 (0.55-1.02) mg/dL Est GFR ( Amer) >60 (>=60 mL/min/1.73m^2) Est GFR (Non-Af Amer) >60 (>=60 mL/min/1.73m^2) BUN/Creatinine Ratio 9.1 Glucose 107 H (74-106) mg/dL Calcium 8.8 (8.5-10.1) mg/dL Total Bilirubin 0.7 (0.2-1.0) mg/dL Direct Bilirubin 0.4 H (0.0-0.2) mg/dL AST 126 H (15-37) U/L ALT 78 H (14-59) U/L Alkaline Phosphatase 253 H (46-116) U/L Total Protein 6.2 L (6.4-8.2) g/dL Albumin 2.3 L (3.4-5.0) g/dL Globulin 3.9 g/dL Albumin/Globulin Ratio 0.6 Ethanol Quant <3 mg/dL Imaging Data Chest x-ray: Radiologist's impression: ITS Impressions Chest X-Ray 06/28/24 15:04 Impression: No radiographic evidence of acute cardiopulmonary process. Electronically authenticated by: BI PHAN Date: 06/28/2024 16:01 Pelvis x-ray: My impression: Pelvis x-ray on my interpretation shows no acute finding Radiologist's impression: ITS Impressions Chest X-Ray 06/28/24 15:04 Impression: No radiographic evidence of acute cardiopulmonary process. Electronically authenticated by: BI PHAN Date: 06/28/2024 16:01 ECG Data Attestation: I personally reviewed and interpreted this ECG as follows: (EKG on my interpretation shows sinus tachycardia with a rate of 133) Discharge Plan Discharge Chief Complaint: Fall Clinical Impression: Fall, Generalized weakness, Sinus tachycardia Patient Disposition: Admitted as Observation Time of Disposition Decision: 16:41 Condition: Fair
[2024-06-28] MEDS: 0.9 % SODIUM CHLORIDE 1,000 ML 1000 ML IV ×2 (15:23→16:58)
[2024-06-28 15:24] LABS: Basophils Percent Auto 0.3 % (0.2-2.0); Eosinophils Percent Auto 0.1 % (0.9-7.0); Hematocrit 28.2 % (36.0-48.0); Hemoglobin 8.9 g/dL (12.0-16.0); Immature Granulocytes Abs Auto 0.06 10^3/uL (0.00-0.03); Immature Granulocytes Pct Auto 0.6 % (0.0-0.5); Lymphocytes Absolute Auto 0.4 10^3/uL (1.2-3.8); Lymphocytes Percent Auto 4.2 % (20.5-60.0); Mean Corpuscular HGB Conc 31.6 g/dL (29.9-35.2); Mean Corpuscular Volume 98.3 fL (81.0-99.0); Mean Platelet Volume 9.2 fL (9.5-13.5); Monocytes Absolute Auto 0.9 10^3/uL (0.3-0.8); Neutrophils Percent Auto 85.8 % (43.0-75.0); Platelet Count 251 10^3/uL (150-450); Red Blood Count 2.87 10^6/uL (4.20-5.40); Red Cell Distribution Width 15.3 % (11.0-15.0); White Blood Count 10.5 10^3/uL (4.0-11.0)
[2024-06-28] MEDS: ONDANSETRON PF 4 MG/2 ML VIAL IV (15:24)
[2024-06-28 15:41] LABS: Alanine Aminotransferase 78 U/L (14-59); Albumin Globulin Ratio 0.6; Albumin Level 2.3 g/dL (3.4-5.0); Alkaline Phosphatase 253 U/L (46-116); Aspartate Amino Transferase 126 U/L (15-37); Bilirubin Direct 0.4 mg/dL (0.0-0.2); Bilirubin Total 0.7 mg/dL (0.2-1.0); Ethanol <3 mg/dL; Globulin 3.9 g/dL; Total Protein 6.2 g/dL (6.4-8.2)
--- NOTE | 2024-06-28 16:35 | XR_ITS ---
The [address] [address] Patient Name: LAURA ADAMSON MRN: [id number] date: 1960 Sex: F Assigned Patient Location: ED.MAIN Current Patient Location: ER Accession/Order Number: [id number] Exam Date: 06/28/2024 16:45 Report Date: 06/28/2024 17:34 At the request of: JULIAN OLMOS Procedure: XR pelvis 1-2V EXAM: XR pelvis 1-2V HISTORY: fall in. COMPARISON: No previous pelvis comparison. MRI lumbar spine 2021. TECHNIQUE: Supine AP pelvis. FINDINGS: Superior endplate deformity of lower lumbar probably L4. Not noted on previous MRI 09/06/2021. Could be acute compression. No pelvic fracture seen. Hardware proximal right femur with deformity suggesting an old healed fracture and hip area. Proximal left femur unremarkable without fracture. Vascular soft tissue calcification. XR/XR pelvis 1-2V IMPRESSION: 1. No acute appearing pelvic or proximal femur fracture. 2. Hardware proximal right femur with deformity suggesting an old healed fracture. 3. Lower lumbar spine partially imaged with superior endplate deformity probably L4 which could be an acute fracture. No deformity seen on previous MRI 09/06/2021 Recommend lumbar spine imaging. Electronically authenticated by: KAREN NAGY Date: 06/28/2024 17:34
[2024-06-28 16:43] LABS: Anion Gap 14.3; Carbon Dioxide 21.2 mmol/L (21.0-32.0); Chloride 99 mmol/L (98-107); Glucose 107 mg/dL (74-106); Potassium 3.5 mmol/L (3.5-5.1); Sodium 131 mmol/L (136-145)
[2024-06-28 16:44] LABS: BUN Creatinine Ratio 9.1; Calcium 8.8 mg/dL (8.5-10.1); Estimated GFR (African America >60 (>=60 mL/min/1.73m^2); Estimated GFR (Non-African Ame >60 (>=60 mL/min/1.73m^2)
--- OUTSIDE RECORDS SUMMARY | 2024-06-28 18:17 | XMS_ITS | CCD ---
Author Organization [facility] Care Team Providers Care Pick Up And Delivery Driver Name Role Phone WANDA WHEELER Unavailable Unavailable WANDA WHEELER Unavailable Unavailable JULIOCESARADDY CAPPS Unavailable Unavailable JULIOCESAR, ADDY Unavailable Unavailable IN Unavailable Unavailable UNKNOWN, PROVIDER Unavailable Unavailable Ximena [...] Care Unavailable SARAH, DR MONET Attending Unavailable SPRING HOPE, DR PAWAN Vazquez Consulting Unavailable SARAH, DR MONET Admitting Unavailable SARAH, DR MONET Consulting Unavailable ASTUDILLO, DR XIMENA Gunderson Attending Unavailable ASTUDILLO, DR XIMENA Gundesron Consulting Unavailable BAUDILIO, DR XIMENA Gunderson Primary Care Unavailable ASTUDILLO, DR XIMENA Gunderson Admitting Unavailable ASTUDILLO, DR IXMENA Gunderson Attending Unavailable BAUDILIO, DR XIMENA Gunderson [...] Propensity to adverse reactions 03-06 8 Comment:Done Profyle Other (1 source) Allergies Reconciled Propensity to adverse reactions Unknown Profyle Other Medications Current Medications Medication Drug Class(es) [...] Refills(s) 0 Start Date: 10/12/23 Status: Ordered [id number] 200 actuat albuterol 0.09 mg/actuat metered dose [...] Start: 10-12-2023 take 2 tablets by mo 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 [id number]+PG hlYWQ+PE1F UGFoW72ruIHwbW3lD2QBHVwASuaiCK LCRWvVFoMshnKpXX8xiHQmMQIt IC8+GO2eJFYuVdzbyZPup9U5mMG8A3 5rxb0jRIvslHF2LGHvQxTmeoazi3un aWv6ZOwgXizfRnNb XUZqzA36UQZ8lG79Xl44wJJtjZDfi0 xywNv4TdOmPYJtSPC6dYotPKpca6Hx DBTfN84xjOOov2X0 KQVbyGswpACfXaYadPJ8hN0dAMesph toh8bbqgjhNfk0km09wJJmc9T2kQW8 A1OujfN2YWRoaNTk QwclcJOOfY1lhuksu0bknqbbIkOcUO CwHCe0LTh7HCHodVqwEcPrEZ57USV4 XXBugiLzB1SlDAUe mTjrCmD5j3N8Dv5TI9ELFdjgD7ZVFU FSWTwvdGQ+LB45li12G6VgLdukNxe1 XYIvUTJ5cXQ6yE4w OURoKZcxh3U9rBI8D8FtdeQhjy3yq0 goXWYeCPfbZ47ozGXyu7X3LBYlsMH3 BGRgnTniHsHjiA74 Oyc+PFAnePobq2SrPbosk6hlw9mjaJ q2TveuAVKmepMzwIdwJQO6k5BzSv3h PCBlbRD2wAT7xY1f FoFjHfP6KBblA124GqGmiFZxAxhcQ5 5nZ9NorBG+RWOwIxw5AAPoyIgfYA6t K0NyPVXpvkoauGBh dMrqRJ0sRSFbrnupAEWrtH5gEBFmE8 x8FaToZdO9HZxmU5PvEBBfxaxlBk23 sB8tWuYbVxX8YZhf Q7GxtvV2HGChgGPnTPqrIJX8D34yg0 H1ILYvOWZcZDH6hNR3mJ2byAkcqapi bGVmdDsgdmVydGlj FFdqRKjsN091PMLmfRcjUwImCQnlQj BEYXRlOiAgMDYvMTkvMjAyNDwvdGQ+ NWTmSAQ1aDoeSRTw hTRkERqsVy3ljLuthOjoQI4oIKDaio pcZRRqbO0xVMAdvVGyvFucWT3kLZGu xjryr415MbUaARJ0 RVIngDReS3FqrY2sQeGqJRPlCVHhK0 MkaUEeAWclH754ZRynLkS6IFPmrzJt Z8OuOHSttFswClG4 q9I8Jg0Il8BhxjrkI5NqeXQdXfJhVj wmTOw4S6AeWwdocML+IJ18CVDlGC20 IZq7VHO3mTafEBpi KKYkX7WljU5iVzJjYEExHLIjVvx+PH RhYmxlIHdpZHRoPScxMDAlJyBzdHls HR3uUx1yDIOuHJJc xDponAIkAoHmf5kpPZQfZMbaLI1nhQ meS8FixJC1LVXun8j6Em18P44oV2Be dXA+OKKjjNQ8qUG5 kE4gJpXmXmK4CSmlG763JxBlzVRxOn eri0jsn3yyqVy2SyM9MHIfeeKyzHil ZTX5j9ZgOn80K40v GMwyXLEsHUXbFJOeYVRtaLglfq0ztQ 9wIi8+NCTacEY0aUL3uC3rMcArNpF5 OCmuV370PuFttXDu Vhign0zmx2aofPx4FfDcSHAoboKovQ nkLEH2t1AsXy77T1JyuNudt8LvAbo4 vb21bHUju0Q1tCH5 J0TzTYWzrfdnxEOifLmpWK2dHEQkhi isBEUrcZ4pCCZaP5j5RsRjUsS2FFhv E3PvzhN7MCNdeDAs HEUlpEGHyX7lagrbx1ldrgebMrDyYS MpYNe1HIl2PIPwwNybMcVlSKI4KvJ6 XHZ1uNIvqB2vuYku zkoqeR7tZfm+DJG7yNQdcNETUC5mGp wvdGQ+GUEgGUB8sLqcDPyjIOSdqV3k AWOgA6c9WhMnCxT6 YDjyL7IaoaE7DZEboPCqUAEyzNLFcE 5tjcxtf0pvuvziRuVpHIOpBDm6NBb5 LWFsaWduOiBsZWZ0 EaX3WLJ7jWRwaI8gfTzbpcankN2qVu c+IdzjpMfhOLL5HBs0T2TaZej2GGEy vUyvLM4vcEOwLXjx If8unOaqlFapVG8gDCYblrzwn116Gb Jfz8zuRXHawIFwTRdzRUP9M19bd2H9 KBQfEYHrHIL2iTG2 kH4ukCodsjsvoBRvjJymriXkkRueMX jvIHhfT421LKKleGguPhCkKAx4W5Kj Phr8GOLknIklAK7d aKWfFJnvWm0ogXkzpYgmTO6iESDtfq xhr325EdDju9dxCZOikWMdUNmqXUQ4 I55za0T0XNYlAGYf TNX3eJB0mM3ytCayyztcfMLscGfqzw SphAvcBVsdSYsdS518DGMjzIkqSnBo vZq9W7VlQxv3JPWc rZmuFO3ieFSlAOlpRo1jhIscqQieEE 9tJFWgyzfzk896LwBoo1oiCOFykBEy FQrdXQW8N52cq8P9 AKWzGZEfBZK1hMW6fB4wkEcikjvidP JzsLzezeJolHedTZjkNSdoJ287ISCv cDsnPlBhdGllbnQg YNowBSh9B6SpKykitLH+IT33GHQfUW 95zQHzcTGrg6vqmXq7AxCdRCMmWLS9 iJgjJAryo9ToCNEr I83jgDPuy8U0NUFqwJwklUOyEpJhbY C4dE3tYEaveorlg5ojwbfuQcark7dh hd50vH87C68jZEjh QSIzMMTxKUThNAFzvAfbxe9qnF4nAo 8+WJBfjPK1tVS8gO2qHVRfYpW7BUae J986OoYvkNJoDqwp s0yhj9sciXs9KjQ1TKCfnpBjyGrqNX H5k1HpQk92G16cPBooIDHeEPSuOFDt FTIftKefgk4bzU3g Ii8+VSUtuAR2xUF3kW3xXkQcIsW0JC reR939UaDbuSAiXhqlT82bY7SzyPH+ YKZnKvr5AEMrjBsp ND6pyRHzKHwzLz1uBPS5XoNzOqBeUG flW4IyROQvmvhkbukizPD3CFQfXWId mZ71Iy8szJijLRCi rSMUdN5fixefx3murugtVlMxBZIhMT p6YOm8PFHurMicYgDrNDA2YeV1REY9 uJYnmA5mdYoqrgbt yT6uW3NcNWHmenjmZh94zH0iLgNwXv H1RZzkAab+PQpZLnACJDFOVBLMGW8V VPF6D4RgIgc7NLVy bYziWA7gvWRtVByfWb4nnHyhgKrqXW 0jYXAskmkyGGYpqG6zDBWdtAKnpNky KI1jLKDglradj255 PrDjBRC0QAMmhSNnH8NwbG3nWuSrMR KjBEWsJ0CrrJBbHUawD022ACzbPoA0 SXXfdeMaQ2UuQLZr wSniFtY3c3F8Ew5mYo5lAL1gYGA3KI 36AT85xQXxx6G4gCU5P9JxJJPtzsis xhcslZS6NNYsDAXh zH82wBTiZGjiDa9es7X5p193RCBhZS JzyH88Vk5gyVhnAOJrjTWOxF4lsorp n3tqthevGlNjWPXr UNa6TYg0PNNnqAuvCdCwQKQ0AqL2QW C2hJKwdF8iwLgzilhuoA5qCfg+NjUg CSWyqfP6F2JsTwa2 DAMwoLzmUD4zvRDhGQngQd5plGzujG ttIN0yPPYgstarZBFewB3kLZUulCOv uSkgJO7pSVYajcri u321XiBnQIQ9ETNllSJbO9VwrJ8xXz RhBKKdBLIyG6LldNXfCEunR123RBms HjD7IIFrqhOvS2Nd OXRbqPxiCgY3l5R1Ye7TFZ6jgHK3P9 EoOvk2MZEfvPjyXZ9sqNDjBBvvFv4m bDqbwUvoEY6sTGQl woihLODsdP3jMDRcoORwhFijDS0dHX Ouylklw916QeWtPEI9MMGmvSTwN3Pe tA6jVdFeBKHoDVSd P5VyrJHoFTmuR621BPtpElA7KSCckp XbP1GgTUYcsOtlUkG4j7J1Bm9VpaAj rKfsguC3B9DgJmsd dHI+LG51GLPfKV19aFJtlKJcn3lbpF n5CbZbIXKkQNH9uOllEIrjl2TxKMQd Q82vkYDgm3G6JRJc wOtgjERiMuUalRA4nB4tISbtigijs4 damcegGkgrk5ogvp80nQ09W27fHJpi ZHRoPSIzMCUiIHZh fLhhcl6hfV2yHi2+QBDtcPF3aQP6tI 2pDgYmXpG7GMefH894ImRfaANlMrcj w2piv4pnxVb8CoVl PHWxivSzyWxsBDR7j3ZbKn59R50kSP knHZUwQFKcJKOrXOKdxWwrrv7omE8t Ii8+EN8by1some94 wC70dDB+NXFcLPP3lOwaLXsaSSDhcF 2iWNsyKcV5BQQqPuOemC50lKSmGAvl Es5exJhqvTxsIY2q DAOxtbzpg948HzAfj2nwQUKtiKBqKG olWLJ7F21ga6P7AYLdIZElBHY4zWI0 qM7ezVeqdyvckRNt kCtnzfOyiNjxRDgeOWghN099KUPvoM ffFjRqhTOfA8ysnaCIYB8vNglunNA+ DDQzGLS9rPwyNUec XKZolH5gQRTsO4i8WjCrDsS5BClqE6 IcpeL5XQJgrXPtOWSjwPWJdV2uaxfj t3vusszoXhNeWSYc RVu9EVh9HXXbrQkvLfLqPHU2YyU3WZ U2qBVpcM5nwVntazaxfW1nIrd+RklO OjwvdGQ+PHRkIHN0 oWqnRQgvYTUovM2nVGQxX8u0YkPtXu Y0ENesI1BnwdM0PCCvkCWlBYHqkDFM eW2juubrp6dhugel LwFlPJUqJEu1HTm3ESLqfRxlRgFhIU H9BiS3RND6aLBjcX7bpXbdpsjsuO0f Oyc+TVJOOjwvdGQ+ UOAkXHV9eChqRHrkDWBunL4vBRCoQ6 p5AeDwNzI2HYkvC8MxlpW6LMHwsITu EUZezAVQlF1mqtoq j7scnieeEvBzOFJlEKl9YNn4ANWpjW cdUtUxQMD3McM2URW5kXLyeY8qmYzh bcmlaL7jRph+UGF5 SLY4CJ02SN75S2JgFdqyrTDhfNP+PH RhYmxlIHdpZHRoPScxMDAlJyBzdHls OT5yLu1gUAJkZJQu bGxhcHNlOiBjb (more content not included)... [facility] Coding Queryon 10-30-2023 Coding Query [...] SW-This SW responded to a consult on [address] [place] [address] regarding ETOH / Substance abuse. Patient stated [...] Caller Number: H Alcohol Dependence, continuous Unspecified [facility] Discharge Instructionson Discharge Instructions [id number]#1.00TIFF [facility] Medication Listson Medication Lists [id number]#1.00TIFF [facility] Physician Orderon 10-17-2023 Physician Order [id number]#1.00TIFF [facility] Transfer Documentson 024 Transfer Documents [id number]#1.00TIFF [facility] Transfer Documents [id number]#1.00TIFF [facility] Transfer Documents [id number]#1.00TIFF [facility] Progress Note-Physicianon Progress Note-Physician GENERAL [...] 4. Dehydration 5. UTI patient admitted to [facility] with orthopedics consult. Hospital Course: 10/08/2023: Presented to the ED s/p fall 4 days prior. found above injuries. Admitted to [facility] with orthopedics consult. 24 Hour Events: No [...] Lymph Auto: 10.5 % Low (10/09/23 06:10:00) [place] Auto: 9.3 % (10/09/23 06:10:00) Eos Auto: 0.9 % (10/09/23 06:10:00) Basophil Auto: 0.5 % (10/09/23 06:10:00) Neutro Absolute: 8.5 E9/L High (10/09/23 06:10:00) Lymph Absolute: 1.1 E9/L (10/09/23 06:10:00) [place] Absolute: 1 E9/L (10/09/23 06:10:00) Eos Absolute: [...] toilet, en (more content not included)... Normal [facility] Comment on above: Result Comment: Elec [...] 4. Dehydration 5. UTI patient admitted to [facility] with orthopedics consult. Hospital Course: 10/08/2023: Presented to the ED s/p fall 4 days prior. found above injuries. Admitted to [facility] with orthopedics consult. 10/09/2023: OR with orthopedics [...] 18:07:21) Size: .062 (10/09/23 18:07:21) Size: 11MM [id number] DEGREE (10/09/23 18:07:21) Size: 10.5 X 100 [...] Lymph Auto: 7.2 % Low (10/10/23 05:04:00) [place] Auto: 8.6 % (10/10/23 05:04:00) Eos Auto: 0.2 % (10/10/23 05:04:00) Basophil Auto: 0.3 % (10/10/23 05:04:00) Neutro Absolute: 11.7 E9/L High (10/10/23 05:04:00) Lymph Absolute: 1 E9/L (10/10/23 05:04:00) [place] Absolute: 1.2 E9/L High (10/10/23 05:04:00) Eos [...] plavi (more content not included)... Normal [facility] Comment on above: Result Comment: Elec [...] 4. Dehydration 5. UTI patient admitted to [facility] with orthopedics consult. Subjective No acute events [...] days prior. found above injuries. Admitted to [facility] with orthopedics consult. 10/09/2023: OR with orthopedics [...] Lymph Auto: 13 % Low (10/11/23 05:05:00) [place] Auto: 9.3 % (10/11/23 05:05:00) Eos Auto: 4.3 % (10/11/23 05:05:00) Basophil Auto: 0.3 % (10/11/23 05:05:00) Neutro Absolute: 7.3 E9/L (10/11/23 05:05:00) Lymph Absolute: 1.3 E9/L (10/11/23 05:05:00) [place] Absolute: 0.9 E9/L (10/11/23 05:05:00) Eos Absolute: [...] mg/dL High (10/11/23 08:05:00) POC Device SN: [id number] (10/11/23 08:05:00) POC User ID: [id number] (10/11/23 08:05:00) POC Username: JERED JIANG (10/11/23 [...] ETOH and (more content not included)... Normal [facility] Comment on above: Result Comment: Elec tronically Signed By: Mckenzie Lerma PA-C\.br\Date and Time Signed: 10/11/23 08:55 EDT\.br\Electronically Co-Signed By: Art GARCIA, Regi Alvarez\.br\Date and Time Co-Signed: 10/14/23 12:20 EDT CBC w/ Auto Diffon 4 Basophils/100 WBC (Bld) 0.3 % Normal 0.0-2.0 [facility] Comment on above: Performed By: #### 2 [id number] #### [facility] [address] [place] [address] Basophils/Leukocyte s Auto (Bld) [Pure # fraction] 0.0 E9/L Normal 0.0-0.2 [facility] Comment on above: Performed By: #### 2 [id number] #### [facility] [address] [place] [address] Eosinophils (Bld) [#/Vol] 0.3 E9/L Normal 0.0-0.5 [facility] Comment on above: Performed By: #### 2 [id number] #### [facility] [address] [place] [address] Eosinophils/100 WBC (Bld) 3.9 % Normal 0.0-8.0 [facility] Comment on above: Performed By: #### 2 [id number] #### [facility] [address] [place] [address] Erythrocyte distribution width (RBC) [Ratio] 13.6 % Normal 10.9-14.2 [facility] Comment on above: Performed By: #### 2 [id number] #### [facility] [address] [place] [address] Hematocrit (Bld) [Volume fraction] 27.3 % Low 34.0-46.0 [facility] Comment on above: Performed By: #### 2 [id number] #### [facility] [address] [place] [address] Hemoglobin (Bld) [Mass/Vol] 9.2 g/dL Low 12.0-16.0 [facility] Comment on above: Performed By: #### 2 [id number] #### [facility] [address] [place] [address] Lymphocytes (Bld) [#/Vol] 0.9 E9/L Low 1.0-4.0 [facility] Comment on above: Performed By: #### 2 [id number] #### [facility] [address] [place] [address] Lymphocytes/100 WBC (Bld) 12.3 % Low 14.0-50.0 [facility] Comment on above: Performed By: #### 2 [id number] #### [facility] [address] [place] [address] MCH (RBC) [Entitic mass] 32.4 pg Normal 27.0-34.0 [facility] Comment on above: Performed By: #### 2 829307 #### [facility] [address] [place] [address] MCHC (RBC) [Mass/Vol] 33.8 g/dL Normal 31.4-36.0 [facility] Comment on above: Performed By: #### 2 164367 #### [facility] [address] [place] [address] MCV (RBC) [Entitic vol] 95.9 fL Normal 80.0-100.0 [facility] Comment on above: Performed By: #### 2 [id number] #### [facility] [address] [place] [address] Monocytes (Bld) [#/Vol] 0.7 E9/L Normal 0.2-1.0 [facility] Comment on above: Performed By: #### 2 [id number] #### [facility] [address] [place] [address] Neutrophils (Bld) [#/Vol] 5.2 E9/L Normal 2.0-7.5 [facility] Comment on above: Performed By: #### 2 957859 #### [facility] [address] [place] [address] Neutrophils/100 WBC (Bld) 73.3 % Normal 36.0-75.0 [facility] Comment on above: Performed By: #### 2 [id number] #### [facility] [address] [place] [address] Platelet 335.0 E9/L Normal 150.0-500. 0 [facility] Comment on above: Performed By: #### 2 [id number] #### [facility] [address] [place] [address] Platelet mean volume (Bld) [Entitic vol] 7.2 fL Normal 6.4-10.8 [facility] Comment on above: Performed By: #### 2 [id number] #### [facility] [address] [place] [address] RBC (Bld) [#/Vol] 2.9 E12/L Low 4.3-5.9 [facility] Comment on above: Performed By: #### 2 [id number] #### [facility] [address] [place] [address] WBC corrected for nucl RBC Auto (Bld) [#/Vol] 7.0 E9/L Normal 4.0-11.0 [facility] Comment on above: Result Comment: Zainab pheral smear review performed. Performed By: #### 2 [id number] #### [facility] [address] [place] [address] CHEMISTRYOrdered By: SYSTEM SYSTEM on 10-12-2023 Anion [...] SW-This SW responded to a consult on [address] [place] [address] regarding ETOH / Substance abuse. Patient stated [...] or expected. Thank you! An [phone] Normal [facility] Discharge Note-Nursingon Discharge Note-Nursing CATHERINE ADAMSON [...] 5 mg Tab) potassium chloride (Potassium Chloride (Bro-Rpic-Jdw 10)) senna (senna 8.6 mg Tab) sodium [...] and recheck right wrist and hip. Where: [address] [place] [phone] Business (1) Follow Up with XIMENA ASTUDILLO When: In 0 days Where: [address] [phone] Business (1) Medications What How Much When [...] a day (more content not included)... Normal [facility] HEMATOLOGYOrdered By: SYSTEM SYSTEM on 10-12-2023 [...] Gregory e Manageron 10-12-2023 Interdisciplinary Note - Yardage Control Clerk CRM spoke with patient in room. Patient is alert and oriented and participates in discharge planning. No family in room. Patient white board updated, and CRM contact information provided. Discussed CRM spoke with Dr Cordova who saw patient earlier today and she will discharge [facility] today. Patient states she could not get up today d/t pain and dizziness, will use [facility] to transport. . Reviewed Medicare rights, she denies any questions. Normal [facility] Comment on above: Result Comment: Elec tronically Signed By: Jose E DICKINSON, Luanne\.br\Date and Time Signed: 10/12/23 11:02 EDT Monitor Recordon 10-12-2023 Monitor Record [id number]#1.00TIFF Normal [facility] Monitor Record [id number]#1.00TIFF Normal [facility] BMPon 10-11-2023 Anion gap [Moles/Vol] 9 mmol/L Normal 6-16 [facility] Comment on above: Performed By: #### 2 [id number] #### [facility] [address] [place] [address] Calcium [Mass/Vol] 7.8 mg/dL Low 8.9-11.1 [facility] Comment on above: Performed By: #### 2 384115 #### [facility] [address] [place] [address] Chloride [Moles/Vol] 102 mmol/L Normal 101-111 [facility] Comment on above: Performed By: #### 2 [id number] #### [facility] [address] [place] [address] CO2 [Moles/Vol] 22 mmol/L Normal 21-31 [facility] Comment on above: Performed By: #### 2 377646 #### [facility] [address] [place] [address] Creatinine [Mass/Vol] 0.7 mg/dL Normal 0.5-1.3 [facility] Comment on above: Performed By: #### 2 [id number] #### [facility] [address] [place] [address] Glucose [Mass/Vol] 92 mg/dL Normal 55-199 [facility] Comment on above: Performed By: #### 2 722918 #### [facility] [address] [place] [address] Potassium [Moles/Vol] 3.9 mmol/L Normal 3.5-5.3 [facility] Comment on above: Performed By: #### 2 694000 #### [facility] [address] [place] [address] Sodium [Moles/Vol] 129 mmol/L Low 135-145 [facility] Comment on above: Performed By: #### 2 340574 #### [facility] [address] [place] [address] Urea nitrogen [Mass/Vol] 31 mg/dL High 5-21 [facility] Comment on above: Performed By: #### 2 698169 #### [facility] [address] [place] [address] Urea nitrogen/Creatinine [Mass ratio] 44 No Units High 10-20 [facility] Comment on above: Performed By: #### 2 [id number] #### [facility] [address] [place] [address] CBC w/ Auto Diffon 4 Basophils/100 WBC (Bld) 0.3 % Normal 0.0-2.0 [facility] Comment on above: Performed By: #### 2 [id number] #### [facility] [address] [place] [address] Basophils/Leukocyte s Auto (Bld) [Pure # fraction] 0.0 E9/L Normal 0.0-0.2 [facility] Comment on above: Performed By: #### 2 [id number] #### [facility] [address] [place] [address] Eosinophils (Bld) [#/Vol] 0.4 E9/L Normal 0.0-0.5 [facility] Comment on above: Performed By: #### 2 [id number] #### [facility] [address] [place] [address] Eosinophils/100 WBC (Bld) 4.3 % Normal 0.0-8.0 [facility] Comment on above: Performed By: #### 2 974040 #### [facility] [address] [place] [address] Erythrocyte distribution width (RBC) [Ratio] 13.3 % Normal 10.9-14.2 [facility] Comment on above: Performed By: #### 2 [id number] #### [facility] [address] [place] [address] Hematocrit (Bld) [Volume fraction] 25.9 % Low 34.0-46.0 [facility] Comment on above: Performed By: #### 2 [id number] #### [facility] [address] [place] [address] Hemoglobin (Bld) [Mass/Vol] 9.1 g/dL Low 12.0-16.0 [facility] Comment on above: Performed By: #### 2 [id number] #### [facility] [address] [place] [address] Lymphocytes (Bld) [#/Vol] 1.3 E9/L Normal 1.0-4.0 [facility] Comment on above: Performed By: #### 2 [id number] #### [facility] [address] [place] [address] Lymphocytes/100 WBC (Bld) 13.0 % Low 14.0-50.0 [facility] Comment on above: Performed By: #### 2 [id number] #### [facility] [address] [place] [address] MCH (RBC) [Entitic mass] 33.3 pg Normal 27.0-34.0 [facility] Comment on above: Performed By: #### 2 [id number] #### [facility] [address] [place] [address] MCHC (RBC) [Mass/Vol] 35.2 g/dL Normal 31.4-36.0 [facility] Comment on above: Performed By: #### 2 [id number] #### [facility] [address] [place] [address] MCV (RBC) [Entitic vol] 94.5 fL Normal 80.0-100.0 [facility] Comment on above: Performed By: #### 2 [id number] #### [facility] [address] [place] [address] Monocytes (Bld) [#/Vol] 0.9 E9/L Normal 0.2-1.0 [facility] Comment on above: Performed By: #### 2 [id number] #### [facility] [address] [place] [address] Neutrophils (Bld) [#/Vol] 7.3 E9/L Normal 2.0-7.5 [facility] Comment on above: Performed By: #### 2 [id number] #### [facility] [address] [place] [address] Neutrophils/100 WBC (Bld) 73.1 % Normal 36.0-75.0 [facility] Comment on above: Performed By: #### 2 [id number] #### [facility] [address] [place] [address] Platelet 309.0 E9/L Normal 150.0-500. 0 [facility] Comment on above: Performed By: #### 2 [id number] #### [facility] [address] [place] [address] Platelet mean volume (Bld) [Entitic vol] 7.1 fL Normal 6.4-10.8 [facility] Comment on above: Performed By: #### 2 [id number] #### [facility] [address] [place] [address] RBC (Bld) [#/Vol] 2.7 E12/L Low 4.3-5.9 [facility] Comment on above: Performed By: #### 2 [id number] #### [facility] [address] [place] [address] WBC corrected for nucl RBC Auto (Bld) [#/Vol] 9.9 E9/L Normal 4.0-11.0 [facility] Comment on above: Performed By: #### 2 [id number] #### [facility] [address] [place] [address] CHEMISTRYOrdered By: Lab ROP User on 10-11-2023 Glucose [Mass/Vol] 108 mg/dL High 55 - 99 mg/dL [facility] POC Subsection Comment on above: Result Comment: Danny mayes RN/ POC Device SN [id number] Invalid Interpretation Code [facility] POC Subsection POC User ID [id number] 1 Invalid Interpretation Code [facility] POC Subsection POC Username JERED JIANG Invalid Interpretation Code [facility] POC Subsection CHEMISTRYOrdered By: SYSTEM SYSTEM on [...] 09-13 Glucose [Mass/Vol] 108 mg/dL High 55-99 [facility] Comment on above: Result Comment: Danny mayes RN/ Performed By: #### 2 [id number] #### [facility] [address] [place] [address] Consent for Anesthesiaon Consent for Anesthesia [id number] Normal [facility] HEMATOLOGYOrdered By: SYSTEM SYSTEM on 10-11-2023 [...] Insurance Correspondence Off ice10-11-2023 Insurance Correspondence Office [id number] Normal [facility] Interdisciplinary Note - Gregory e Manageron 10-11-2023 Interdisciplinary Note - Yardage Control Clerk CRM spoke with patient and daughter in room. Patient is alert and oriented and participates in discharge planning. Patient white board updated, and CRM contact information provided. Discussed Dr Cordova will see patient today. She states Dr lemons was into see her today. Discussed [facility] had accepted and precert was obtained for dc today. Patient now asking if she can go to [facility] and not [facility]. Will need to see if they take her insurance and have any beds. If they cannot she will go to [facility]. She is asking to stay a couple days yet and discussed if medically ready for discharge she will need to mi. Patient will need transport at mi. Reviewed Medicare rights, she denies any questions. Gave her a copy of signed form. Correction to above sister August in room not daughter. Informed patient and sister [facility] does take her insurance and referral has been sent, waiting acceptance and will need a precert. And per Gen sx will stay today and work to wean oxygen. Normal [facility] Comment on above: Result Comment: Elec tronically Signed By: Jose E DICKINSON, Luanne\.br\Date and Time Signed: 10/11/23 10:26 EDT IntraOperative Documentson 0 10-11-2023 IntraOperative Documents [id number] Normal [facility] Magnesiumon 10-11-2023 Magnesium [Mass/Vol] 1.6 mg/dL Normal 1.3-2.4 [facility] Comment on above: Performed By: #### 2 [id number] #### [facility] [address] [place] [address] Monitor Recordon 10-11-2023 Monitor Record [id number]#1.00TIFF Normal [facility] Monitor Record [id number]#1.00TIFF Normal [facility] Phosphoruson 10-11-2023 Phosphate [Mass/Vol] 2.4 mg/dL Normal 1.9-4.6 [facility] Comment on above: Performed By: #### 2 368957 #### [facility] [address] [place] [address] Progress Note-Physicianon Progress Note-Physician Patient: CATHERINE ADAMSON [...] list: All Problems Smoker / SNOMED CT 080729902 / Confirmed Added secondary to documentation in Social History. Elevated ferritin level / SNOMED CT 674985192 / Confirmed Pleural effusion / SNOMED CT 74486143 / Confirmed Screen for colon cancer / SNOMED CT 707632421 / Confirmed Osteoarthritis / SNOMED CT 7912207689 / Confirmed LFT elevation / SNOMED CT 3748604990 / Confirmed Ischemic hepatitis / SNOMED CT 908622414 / Confirmed Hyponatremia / SNOMED CT 577613421 / Confirmed Hyperlipidemia / SNOMED CT 66537670 / Confirmed Essential hypertension / SNOMED CT 60416370 / Confirmed ASHD (arteriosclerotic heart disease) / SNOMED CT 75358087 / Confirmed COPD (chronic obstructive pulmonary disease) / SNOMED CT 97437704 / Confirmed COPD (chronic obstructive pulmonary disease) / SNOMED CT 96508198 / Confirmed At risk for falls / SNOMED CT 616240278 / Possible Problem added when Risk for Falls Careplan was initiated. 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 Arthroscopy and biopsy of knee (072436206). Tubal ligation (405804532). Social History Social & Psychosocial Habits Alcohol [...] adequate air exchange. Cardiovascular: Regular rhythm. Plan [place] [employer] Anesthesiologists (ASA) physical status classification: Class IV. Anesthetic Preoperative Plan: Anesthesia General. Normal [facility] Comment on above: Result Comment: Elec [...] ( From PACU to floor ). Normal [facility] Comment on above: Result Comment: Elec [...] 73.1 % Lymph Auto 13.0 % LOW [place] Auto 9.3 % Eos Auto 4.3 % Basophil Auto 0.3 % Neutro Absolute 7.3 E9/L Lymph Absolute 1.3 E9/L [place] Absolute 0.9 E9/L Eos Absolute 0.4 E9/L [...] % HI Lymph Auto 7.2 % LOW [place] Auto 8.6 % Eos Auto 0.2 % Basophil Auto 0.3 % Neutro Absolute 11.7 E9/L [place] Lymph Absolute 1.0 E9/L [place] Absolute 1.2 E9/L [place] Eos Absolute 0.0 [...] BID 10 days. Resume Plavix. . Normal [facility] Comment on above: Result Comment: Elec tronically Signed By: Chana Lemons DO\.maxx\Date and Time Signed: 10/11/23 07:11 EDT eGFRon 10-11-2023 eGFR 96 mL/min/1.73 m2 Normal >=59 [facility] Comment on above: Order Comment: Order added by Discern Expert. Performed By: #### 1 [id number] #### [facility] [address] [place] [address] BMPon 10-10-2023 Anion gap [Moles/Vol] 10 mmol/L Normal 6-16 [facility] Comment on above: Performed By: #### 2 223437 #### [facility] [address] [place] [address] Calcium [Mass/Vol] 8.1 mg/dL Low 8.9-11.1 [facility] Comment on above: Performed By: #### 2 939659 #### [facility] [address] [place] [address] Chloride [Moles/Vol] 103 mmol/L Normal 101-111 [facility] Comment on above: Performed By: #### 2 987116 #### [facility] [address] [place] [address] CO2 [Moles/Vol] 21 mmol/L Normal 21-31 [facility] Comment on above: Performed By: #### 2 020492 #### [facility] [address] [place] [address] Creatinine [Mass/Vol] 0.8 mg/dL Normal 0.5-1.3 [facility] Comment on above: Performed By: #### 2 078653 #### [facility] [address] [place] [address] Glucose [Mass/Vol] 146 mg/dL Normal 55-199 [facility] Comment on above: Performed By: #### 2 406086 #### [facility] [address] [place] [address] Potassium [Moles/Vol] 4.1 mmol/L Normal 3.5-5.3 [facility] Comment on above: Performed By: #### 2 127032 #### [facility] [address] [place] [address] Sodium [Moles/Vol] 130 mmol/L Low 135-145 [facility] Comment on above: Performed By: #### 2 003238 #### [facility] [address] [place] [address] Urea nitrogen [Mass/Vol] 35 mg/dL High 5-21 [facility] Comment on above: Performed By: #### 2 067519 #### [facility] [address] [place] [address] Urea nitrogen/Creatinine [Mass ratio] 44 No Units High 10-20 [facility] Comment on above: Performed By: #### 2 832048 #### [facility] [address] [place] [address] C Urineon 10-10-2023 Bacteria identified Cx Nom [...] Locations R1: This test was performed at: [facility], [address] [place] [address], [address] [facility], [facility] Comment on above: Performed By: #### 2 213331 #### [facility] [address] [place] [address] CBC w/ Auto Diffon 4 Basophils/100 WBC (Bld) 0.3 % Normal 0.0-2.0 [facility] Comment on above: Performed By: #### 2 162968 #### [facility] [address] [place] [address] Basophils/Leukocyte s Auto (Bld) [Pure # fraction] 0.0 E9/L Normal 0.0-0.2 [facility] Comment on above: Performed By: #### 2 729478 #### [facility] [address] [place] [address] Eosinophils (Bld) [#/Vol] 0.0 E9/L Normal 0.0-0.5 [facility] Comment on above: Performed By: #### 2 007517 #### [facility] [address] [place] [address] Eosinophils/100 WBC (Bld) 0.2 % Normal 0.0-8.0 [facility] Comment on above: Performed By: #### 2 009644 #### [facility] [address] [place] [address] Erythrocyte distribution width (RBC) [Ratio] 13.3 % Normal 10.9-14.2 [facility] Comment on above: Performed By: #### 2 789380 #### [facility] [address] [place] [address] Hematocrit (Bld) [Volume fraction] 33.2 % Low 34.0-46.0 [facility] Comment on above: Performed By: #### 2 105649 #### [facility] [address] [place] [address] Hemoglobin (Bld) [Mass/Vol] 11.2 g/dL Low 12.0-16.0 [facility] Comment on above: Performed By: #### 2 498456 #### [facility] [address] [place] [address] Lymphocytes (Bld) [#/Vol] 1.0 E9/L Normal 1.0-4.0 [facility] Comment on above: Performed By: #### 2 663949 #### [facility] [address] [place] [address] Lymphocytes/100 WBC (Bld) 7.2 % Low 14.0-50.0 [facility] Comment on above: Performed By: #### 2 556610 #### [facility] [address] [place] [address] MCH (RBC) [Entitic mass] 32.1 pg Normal 27.0-34.0 [facility] Comment on above: Performed By: #### 2 671728 #### [facility] [address] [place] [address] MCHC (RBC) [Mass/Vol] 33.7 g/dL Normal 31.4-36.0 [facility] Comment on above: Performed By: #### 2 232520 #### [facility] [address] [place] [address] MCV (RBC) [Entitic vol] 95.3 fL Normal 80.0-100.0 [facility] Comment on above: Performed By: #### 2 270673 #### [facility] [address] [place] [address] Monocytes (Bld) [#/Vol] 1.2 E9/L High 0.2-1.0 [facility] Comment on above: Performed By: #### 2 032568 #### [facility] [address] [place] [address] Neutrophils (Bld) [#/Vol] 11.7 E9/L High 2.0-7.5 [facility] Comment on above: Performed By: #### 2 229312 #### [facility] [address] [place] [address] Neutrophils/100 WBC (Bld) 83.7 % High 36.0-75.0 [facility] Comment on above: Performed By: #### 2 420593 #### [facility] [address] [place] [address] Platelet 442.0 E9/L Normal 150.0-500. 0 [facility] Comment on above: Performed By: #### 2 168018 #### [facility] [address] [place] [address] Platelet mean volume (Bld) [Entitic vol] 7.2 fL Normal 6.4-10.8 [facility] Comment on above: Performed By: #### 2 694925 #### [facility] [address] [place] [address] RBC (Bld) [#/Vol] 3.5 E12/L Low 4.3-5.9 [facility] Comment on above: Performed By: #### 2 794054 #### [facility] [address] [place] [address] WBC corrected for nucl RBC Auto (Bld) [#/Vol] 13.9 E9/L High 4.0-11.0 [facility] Comment on above: Performed By: #### 2 816755 #### [facility] [address] [place] [address] CHEMISTRYOrdered By: SYSTEM SYSTEM on 10-10-2023 Anion [...] ADAMSON; Caller Number: H Documentation per a product development consultant in the medical record indicates this [...] judgment of the documented diagnoses by the product development consultant, do you agree with the diagnosis? [___]Yes, I agree with the diagnosis documented by the product development consultant. [___]No, I do not agree with the diagnosis documented by the product development consultant. Reason: [___]Other: In responding to this [...] H I agree with diagnosis. Aubrey Mcguire [facility] HEMATOLOGYOrdered By: SYSTEM SYSTEM on 10-10-2023 [...] Insurance Correspondence Off ice10-10-2023 Insurance Correspondence Office [id number] Normal [facility] Interdisciplinary Note - Gregory e Manageron 10-10-2023 Interdisciplinary Note - Yardage Control Clerk CRM spoke with patient in room. Patient [...] w/c van or EMS to transport at mi. Reviewed Medicare rights, she denies any questions. Normal [facility] Comment on above: Result Comment: Elec [...] complete ADL functional transfers including sit Normal [facility] IntraOperative Documentson 0 10-10-2023 IntraOperative Documents [id number] Normal [facility] Magnesiumon 10-10-2023 Magnesium [Mass/Vol] 1.7 mg/dL Normal 1.3-2.4 [facility] Comment on above: Performed By: #### 2 [id number] #### [facility] [address] [place] [address] Main OR Intraoperative Recor don 10-10-2023 Main OR Intraoperative Record IntraOp Document Type FT Summary Primary Physician: Chana Lemons DO Finalized Date/Time: 10/10/23 09:43:20 Pt. Name: CATHERINE ADAMSON/Sex: 1960 Female Med Rec #: [id number] Physician: Art GARCIA, Regi Alvarez Financial #: [id number] Pt. Type: I Room/Bed: S320/01 Admit/Disch: 10/08/23 [...] Role Performed Surgeon - Primary Anesthesiologist of Washing Machine Mechanic - Primary Record Time In 10/09/23 16:28:00 [...] Pati Singer Role Performed Scrub - Primary SATELLITE SPECIALIST [employer] Medic Time In 10/09/23 16:28:00 10/09/23 16:28:00 10/09/23 [...] ACUTE FRA (more content not included)... Normal [facility] Operative Reporton Operative Report SURGERY DATE: [...] with the hand/wrist dangled off with assistant activities director. Large fluoroscopy with field sampling technician was utilized. Once the arm was [...] and plac (more content not included)... Normal [facility] Comment on above: Result Comment: Elec tronically Signed By: Chana Lemons DO T\.br\Date and Time Signed: 10/10/23 12:51 EDT Phosphoruson 10-10-2023 Phosphate [Mass/Vol] 3.1 mg/dL Normal 1.9-4.6 [facility] Comment on above: Performed By: #### 2 [id number] #### [facility] [address] [place] [address] XR Hip 2-3 Views Righton XR Hip [...] mGy = 14.30 DAP = na Normal [facility] XR Wrist 2 Views Righton XR [...] mGy = 0.60 DAP = na Normal [facility] eGFRon 10-10-2023 eGFR 82 mL/min/1.73 m2 Normal >=59 [facility] Comment on above: Order Comment: Order added by Discern Expert. Performed By: #### 1 [id number] #### [facility] [address] [place] [address] BMPon 10-09-2023 Anion gap [Moles/Vol] 10 mmol/L Normal 6-16 [facility] Comment on above: Performed By: #### 2 841801 #### [facility] [address] [place] [address] Calcium [Mass/Vol] 8.3 mg/dL Low 8.9-11.1 [facility] Comment on above: Performed By: #### 2 956846 #### [facility] [address] [place] [address] Chloride [Moles/Vol] 105 mmol/L Normal 101-111 [facility] Comment on above: Performed By: #### 2 053159 #### [facility] [address] [place] [address] CO2 [Moles/Vol] 21 mmol/L Normal 21-31 [facility] Comment on above: Performed By: #### 2 750900 #### [facility] [address] [place] [address] Creatinine [Mass/Vol] 0.9 mg/dL Normal 0.5-1.3 [facility] Comment on above: Performed By: #### 2 205221 #### [facility] [address] [place] [address] Glucose [Mass/Vol] 96 mg/dL Normal 55-199 [facility] Comment on above: Performed By: #### 2 278098 #### [facility] [address] [place] [address] Potassium [Moles/Vol] 3.9 mmol/L Normal 3.5-5.3 [facility] Comment on above: Performed By: #### 2 872154 #### [facility] [address] [place] [address] Sodium [Moles/Vol] 132 mmol/L Low 135-145 [facility] Comment on above: Performed By: #### 2 895450 #### [facility] [address] [place] [address] Urea nitrogen [Mass/Vol] 33 mg/dL High 5-21 [facility] Comment on above: Performed By: #### 2 910915 #### [facility] [address] [place] [address] Urea nitrogen/Creatinine [Mass ratio] 37 No Units High 10-20 [facility] Comment on above: Performed By: #### 2 418803 #### [facility] [address] [place] [address] CBC w/ Auto Diffon 4 Basophils/100 WBC (Bld) 0.5 % Normal 0.0-2.0 [facility] Comment on above: Performed By: #### 2 378053 #### [facility] [address] [place] [address] Basophils/Leukocyte s Auto (Bld) [Pure # fraction] 0.1 E9/L Normal 0.0-0.2 [facility] Comment on above: Performed By: #### 2 386062 #### [facility] [address] [place] [address] Eosinophils (Bld) [#/Vol] 0.1 E9/L Normal 0.0-0.5 [facility] Comment on above: Performed By: #### 2 459912 #### [facility] [address] [place] [address] Eosinophils/100 WBC (Bld) 0.9 % Normal 0.0-8.0 [facility] Comment on above: Performed By: #### 2 165000 #### [facility] [address] [place] [address] Erythrocyte distribution width (RBC) [Ratio] 13.1 % Normal 10.9-14.2 [facility] Comment on above: Performed By: #### 2 258833 #### [facility] [address] [place] [address] Hematocrit (Bld) [Volume fraction] 31.9 % Low 34.0-46.0 [facility] Comment on above: Performed By: #### 2 969923 #### [facility] [address] [place] [address] Hemoglobin (Bld) [Mass/Vol] 10.8 g/dL Low 12.0-16.0 [facility] Comment on above: Performed By: #### 2 724470 #### [facility] [address] [place] [address] Lymphocytes (Bld) [#/Vol] 1.1 E9/L Normal 1.0-4.0 [facility] Comment on above: Performed By: #### 2 135895 #### [facility] [address] [place] [address] Lymphocytes/100 WBC (Bld) 10.5 % Low 14.0-50.0 [facility] Comment on above: Performed By: #### 2 306955 #### [facility] [address] [place] [address] MCH (RBC) [Entitic mass] 32.1 pg Normal 27.0-34.0 [facility] Comment on above: Performed By: #### 2 112065 #### [facility] [address] [place] [address] MCHC (RBC) [Mass/Vol] 33.8 g/dL Normal 31.4-36.0 [facility] Comment on above: Performed By: #### 2 474274 #### [facility] [address] [place] [address] MCV (RBC) [Entitic vol] 94.9 fL Normal 80.0-100.0 [facility] Comment on above: Performed By: #### 2 937865 #### [facility] [address] [place] [address] Monocytes (Bld) [#/Vol] 1.0 E9/L Normal 0.2-1.0 [facility] Comment on above: Performed By: #### 2 878443 #### [facility] [address] [place] [address] Neutrophils (Bld) [#/Vol] 8.5 E9/L High 2.0-7.5 [facility] Comment on above: Performed By: #### 2 631014 #### [facility] [address] [place] [address] Neutrophils/100 WBC (Bld) 78.8 % High 36.0-75.0 [facility] Comment on above: Performed By: #### 2 445293 #### [facility] [address] [place] [address] Platelet mean volume (Bld) [Entitic vol] 7.1 fL Normal 6.4-10.8 [facility] Comment on above: Performed By: #### 2 836778 #### [facility] [address] [place] [address] Platelets (Bld) [#/Vol] 408.0 E9/L Normal 150.0-500. 0 [facility] Comment on above: Performed By: #### 2 082482 #### [facility] [address] [place] [address] RBC (Bld) [#/Vol] 3.4 E12/L Low 4.3-5.9 [facility] Comment on above: Performed By: #### 2 565685 #### [facility] [address] [place] [address] WBC corrected for nucl RBC Auto (Bld) [#/Vol] 10.8 E9/L Normal 4.0-11.0 [facility] Comment on above: Performed By: #### 2 519523 #### [facility] [address] [place] [address] CHEMISTRYOrdered By: SYSTEM SYSTEM on 10-09-2023 Ethanol Lvl mg/dL Normal <=11mg/dL Remisol Chem Consent for Procedure/Surger yon 10-09-2023 Consent for Procedure/Surgery [id number]#[id number] Normal [facility] EMS Documentationon 10-09-19 24 EMS Documentation Please click on link to see report Normal [facility] Comment on above: Result Comment: Miss ing Attachment - total size limit for all attachments exceeded [email or web address] Can be viewed in source system Ethanolon 10-09-2023 Ethanol Lvl <10 Normal <=11 [facility] Comment on above: Performed By: #### 2 133197 #### [facility] [address] [place] [address] Inpatient Clinical Summaryon 10-09-2023 Inpatient Clinical Summary [address] [address] Clinical Summary Person Information: Name: CATHERINE ADAMSON Age: 63 Years : 1960 Sex: Female PCP: XIMENA ASTUDILLO MD Marital Status: Race: White Ethnicity: Non- or Language: [place]an Visit Id: Visit Reason: Leg pain-swelling; Hip pain-swelling; Dizziness; Fall; FALL Speciality: Acuity: Enc Type: Inpatient Med Service: Medical Arrival: 10/08/2023 11:57:18 Discharge: Dispo Type: Admitted as IP to this Hosp Address: Marybeth LOPEZ [address] [id number] Provider Notes: Diagnosis: Alcohol abuse; Colles' fracture; [...] every day. nitroglycerin potassium chloride (Potassium Chloride (Uuj-Emmt-Std 10)) By Mouth 2 times a day. sodium chloride (Sodium Chloride) Care Team Members: Attending Physician: Aubrey Swift PA-C Consulting Physician: Referring Physician: Follow up: With: Address: When: Chana Lemons [address] [place], [place] [id number] Business (1) Comments: Call for followup appointment 4 weeks. With: Address: When: XIMENA ASTUDILLO [address] [place], [place] [id number] Business (1) Patient Education Information: Normal [facility] Inpatient Patient Summaryon 10-09-2023 Inpatient Patient Summary [address] [address] [facility] Clinical Discharge Instructions PERSON INFORMATION Name: CATHERINE ADAMSON PHYSICIANS Admitting Physician: Art GARCIA, Regi Alvarez Attending Physician: Regi Cordova MD PCP: XIMENA ASTUDILLO MD Discharge Diagnosis: Alcohol abuse; Colles' fracture; Hip fracture, right; Pancreatitis, acute; Rhabdomyolysis Comment: PATIENT EDUCATION INFORMATION Instructions: Medication Leaflets: Follow up: With: Address: When: Chana Lemons [address] [place] [address] Business (1) Comments: Call for followup appointment 2-3 weeks for staple removal right hip and recheck right wrist and hip. With: Address: When: XIMENA BAUDILIO [address] [place] [address] Business (1) MEDICATION LIST Medications to [...] every day. nitroglycerin potassium chloride (Potassium Chloride (Tbo-Kydk-Fqv 10)) By Mouth 2 times a day. sodium chloride (Sodium Chloride) No Longer Take the Following Medications hydrochlorothiazide-lisinopril (hydrochlorothiazide-lisinopri l 12.5 mg-20 mg Tab) By Mouth every day. magnesium sulfate/potass Cl/sodium sulf (Sutab oral tablet) Please follow instructions per packaging and physician's handout. Refills: 0., Ordered as indicated per Dr. Hernandez. tramadol (traMADOL 50 mg Tab) By Mouth every 6 hours. Comment: Normal [facility] Inpatient Patient Summary [place] [id number] Patient Discharge Instructions PERSON INFORMATION Name: CATHERINE [...] Follow up: With: Address: When: Chana Lemons [address] [place], [place] [id number] Business (1) Comments: Call for followup appointment 4 weeks. With: Address: When: XIMENA ASTUDILLO [address] [place] [address] Business (1) In the event that this [...] Dose: Next Dose: potassium chloride (Potassium Chloride (Rhc-Svqo-Mjg 10)) By Mouth 2 times a day. [...] every day. nitroglycerin potassium chloride (Potassium Chloride (Ldw-Aeti-Zhg 10)) By Mouth 2 maisha (more content not included)... Normal [facility] Insurance Correspondence Off 10-09-2023 Insurance Correspondence Office [id number]#1.00TIFF [facility] Insurance Correspondence Office [id number]#1.00TIFF [facility] Interdisciplinary Note - Gregory e Manageron 10-09-2023 Interdisciplinary Note - Yardage Control Clerk CRM spoke with patient, daughter and sisters [...] Discussed local SNF choices and she prefers [facility] and [facility]CU followed by [facility]. Will need a precert. Anticipated dc in 2-3 days. Patient does admit to daily RTOH use and psych social worker will see today. Reviewed Medicare [...] and use her home supply at SNF. [facility] Comment on above: Result Comment: Elec tronically Signed By: Jose E DICKINSON, Luanne\.br\Date and Time Signed: 10/09/23 14:07 EDT Interdisciplinary Note - Soc ial Workeron 10-09-2023 Interdisciplinary Note - Stitcher Hand This SW responded to a consult on [...] time. SW will remain available as needed. [facility] Interdisciplinary Note - Stitcher Hand This SW responded to a consult on [address] [place] [address] regarding ETOH / Substance abuse. Patient stated [...] SW will remain available as needed. Normal [facility] Magnesiumon 10-09-2023 Magnesium [Mass/Vol] 1.7 mg/dL Normal 1.3-2.4 [facility] Comment on above: Performed By: #### 2 [id number] #### [facility] Laboratory [address] [place] [address] Main OR Intraoperative Recor don 10-09-2023 Main OR Intraoperative Record IntraOp Document Type FT Summary Primary Physician: Chana Lemons DO Finalized Date/Time: 10/09/23 18:09:03 Pt. Name: CATHERINE ADAMSON/Sex: 1960 Female Med Rec #: [id number] Physician: Art GARCIA, Regi Alvarez Financial #: [id number] Pt. Type: I Room/Bed: Admit/Disch: 10/08/23 11:57:18 [...] Role Performed Surgeon - Primary Anesthesiologist of Washing Machine Mechanic - Primary Record Time In 10/09/23 16:28:00 [...] Pati Singer Role Performed Scrub - Primary SATELLITE SPECIALIST [employer] Medic Time In 10/09/23 16:28:00 10/09/23 16:28:00 10/09/23 [...] Time Out Chana Lemons DO, Given Participants [facility] , Gary Beard, Ashley Zhang, Zaira [...] AND UL (more content not included)... Normal [facility] Main OR PACU I Recordon 09-12 Main OR PACU I Record PACU Phase I Document Type FT Summary Primary Physician: Chana Lemons DO Finalized Date/Time: 10/09/23 19:01:13 Pt. Name: CATHERINE ADAMSON/Sex: 1960 Female Med Rec #: [id number] Physician: Art GARCIA, Regi Alvarez Financial #: [id number] Pt. Type: I Room/Bed: [place] [address] Admit/Disch: 10/08/23 11:57:18 - Institution: Case Times [...] Signed By: Sara Son RN 10/09/23 19:01 [facility] Message from Medicareon 09-12 Message from Medicare [id number]#1.00TIFF Normal [facility] Monitor Recordon 10-09-2023 Monitor Record [id number]#1.00TIFF Normal [facility] Monitor Record [id number]#1.00TIFF [facility] Operative Reporton Operative Report Patient: [...] % HI Lymph Auto 10.5 % LOW [place] Auto 9.3 % Eos Auto 0.9 % Basophil Auto 0.5 % Neutro Absolute 8.5 E9/L HI Lymph Absolute 1.1 E9/L [place] Absolute 1.0 E9/L Eos Absolute 0.1 E9/L [...] POSITIVE UA Spec Desc [place] UA Color [place] UA Clarity Ex.Turbid UA Spec Grav 1.018 [...] Glucose Cap 95 mg/dL POC Device SN [id number] POC User ID [id number] POC Username POC Username 10/08/2023 12:00 EDT WBC 16.6 E9/L HI RBC 3.8 E12/L LOW HGB 12.1 gm/dL Hct 36.5 % MCV 95.3 fL MCH 31.6 pg MCHC 33.2 gm/dL RDW 13.0 % Platelet 509.0 E9/L HI MPV 7.4 fL Neutro Auto 87.1 % HI Lymph Auto 5.5 % LOW [place] Auto 7.2 % Eos Auto 0.0 % Basophil Auto 0.2 % Neutro Absolute 14.4 E9/L HI Lymph Absolute 0.9 E9/L LOW [place] Absolute 1.2 E9/L HI Eos Absolute 0.0 [...] Room in stable and satisfactory condition.. Normal [facility] Comment on above: Result Comment: Elec tronically Signed By: Chana Lemons DO\.br\Date and Time Signed: 10/09/23 18:20 EDT Outpatient Surgery Discharge Instructionon 10-09-2023 Outpatient Surgery Discharge Instruction [place] [id number] Patient Discharge Instructions PERSON INFORMATION Name: CATHERINE [...] 50% partial weight right hip 4 weeks. [place] out right hip 2-3 weeks. No weight [...] Follow up: With: Address: When: Chana Lemons [address] [place] [phone] Business (1) Comments: Call for followup appointment 2-3 weeks for staple removal right hip and recheck right wrist and hip. With: Address: When: XIMENA ASTUDILLO [address] [place] [address] Business (1) Pharmacy Information: You may receive a survey from [employer] [facility] [employer] asking you to rate your care experience. Your feedback is important and will help us understand what we do well and how we can improve the quality of care we provide to you, your loved ones and our community. It?s an honor to serve you. Thank you for choosing [facility] HERE ARE THE MEDICATION CHANGES THAT OCCURRED [...] every day. nitroglycerin potassium chloride (Potassium Chloride (Ygl-Aups-Oov 10)) By Mouth 2 times a day. [...] PATIENT EDUCATION INFORMATION Instructions: Medication Leaflets: Normal [facility] Patient Education - Texton 0 10-09-2023 Patient Education - Text Normal [facility] Patient Education - Text [facility] Phosphoruson 10-09-2023 Phosphate [Mass/Vol] 3.1 mg/dL Normal 1.9-4.6 [facility] Comment on above: Performed By: #### 2 [id number] #### [facility] Laboratory [address] [place] [address] Progress Note-Nurseon 2023 Progress Note-Nurse Patient returned [...] given while order was still active. Normal [facility] Progress Note-Physicianon Progress Note-Physician Patient: CATHERINE ADAMSON Age: 63 years Sex: Female : 1960 Associated Diagnoses: None Author: Chnaa Lemons DO Basic Information Pt seen and [...] Allergic Reactions (All) No Known Allergies Normal [facility] Comment on above: Result Comment: Elec tronically Signed By: Chana Lemons DO\.br\Date and Time Signed: 10/09/23 06:35 EDT eGFRon 10-09-2023 eGFR 71 mL/min/1.73 m2 Normal >=59 [facility] Comment on above: Order Comment: Order added by Discern Expert. Performed By: #### 1 [id number] ####[facility] [address] [place] [address] ABO/Rhon 10-08-2023 ABO/Rh Positive Invalid Interpretation Code [facility] Comment on above: Performed By: #### 2 [id number] #### [facility] [address] [place] [address] ABO/Rh History Checkon 10-07 ABO/Rh History Check Type verified by second s Normal [facility] Comment on above: Performed By: #### 1 [id number] #### [facility] [address] [place] [address] ABO/Rh Retypeon 10-08-2023 ABO/Rh Retype Interp Positive Invalid Interpretation Code [facility] Comment on above: Order Comment: pt in CT [id number] 10/08/2023 12:37:24 EDT Performed By: #### 1 [id number] #### [facility] [address] [place] [address] ABSCon 10-08-2023 ABSC Gel Interp Negative Normal [facility] Comment on above: Performed By: #### 1 [id number] #### [facility] [address] [place] [address] AMIKACIN:SUSC:PT:ISOLATE:ORD QN:MICOrdered By: Vonnie Jauregui on 10-08-2023 Amikacin YUNI [Susc] >100,000 cfu/ml Citr obacter farmeri [facility] Amikacin YUNI [Susc]Ordered B y: Vonnie Jauregui on 10-08-2023 Citrobacter farmeri Citrobacter farmeri [facility] BLOOD BANKOrdered By: Nichelle Shoemaker on 10-08-2023 ABO/Rh Retype Interp Positive Invalid Interpretation Code [facility] BB Subsection ABO/Rh Interp Positive Invalid Interpretation Code [facility] BB Subsection ABSC Gel Interp Negative (10/08/23 12:13 PM) Normal [facility] BB Subsection BMPon 10-08-2023 Anion gap [Moles/Vol] 16 mmol/L Normal 6-16 [facility] Comment on above: Performed By: #### 2 [id number] #### [facility] [address] [place] [address] Calcium [Mass/Vol] 8.2 mg/dL Low 8.9-11.1 [facility] Comment on above: Performed By: #### 2 [id number] #### [facility] [address] [place] [address] Chloride [Moles/Vol] 105 mmol/L Normal 101-111 [facility] Comment on above: Performed By: #### 2 [id number] #### [facility] [address] [place] [address] CO2 [Moles/Vol] 20 mmol/L Low 21-31 [facility] Comment on above: Performed By: #### 2 091319 #### [facility] [address] [place] [address] Creatinine [Mass/Vol] 0.6 mg/dL Normal 0.5-1.3 [facility] Comment on above: Performed By: #### 2 [id number] #### [facility] [address] [place] [address] Glucose [Mass/Vol] 108 mg/dL Normal 55-199 [facility] Comment on above: Performed By: #### 2 345993 #### [facility] [address] [place] [address] Potassium [Moles/Vol] 3.5 mmol/L Normal 3.5-5.3 [facility] Comment on above: Performed By: #### 2 229218 #### [facility] [address] [place] [address] Sodium [Moles/Vol] 137 mmol/L Normal 135-145 [facility] Comment on above: Performed By: #### 2 186534 #### [facility] [address] [place] [address] Urea nitrogen [Mass/Vol] 25 mg/dL High 5-21 [facility] Comment on above: Performed By: #### 2 532163 #### [facility] [address] [place] [address] Urea nitrogen/Creatinine [Mass ratio] 42 No Units High 10-20 [facility] Comment on above: Performed By: #### 2 067498 #### [facility] [address] [place] [address] Blood Bank ID#on 10-08-2023 BBID# [id number] Invalid Interpretation Code [facility] Comment on above: Performed By: #### 1 [id number] #### [facility] [address] [place] [address] CBC w/ Auto Diffon 4 Basophils/100 WBC (Bld) 0.2 % Normal 0.0-2.0 [facility] Comment on above: Performed By: #### 2 [id number] #### [facility] [address] [place] [address] Basophils/Leukocyte s Auto (Bld) [Pure # fraction] 0.0 E9/L Normal 0.0-0.2 [facility] Comment on above: Performed By: #### 2 967941 #### [facility] [address] [place] [address] Eosinophils (Bld) [#/Vol] 0.0 E9/L Normal 0.0-0.5 [facility] Comment on above: Performed By: #### 2 [id number] #### [facility] [address] [place] [address] Eosinophils/100 WBC (Bld) 0.0 % Normal 0.0-8.0 [facility] Comment on above: Performed By: #### 2 988798 #### [facility] [address] [place] [address] Erythrocyte distribution width (RBC) [Ratio] 13.0 % Normal 10.9-14.2 [facility] Comment on above: Performed By: #### 2 771666 #### [facility] [address] [place] [address] Hematocrit (Bld) [Volume fraction] 36.5 % Normal 34.0-46.0 [facility] Comment on above: Performed By: #### 2 403090 #### [facility] [address] [place] [address] Hemoglobin (Bld) [Mass/Vol] 12.1 g/dL Normal 12.0-16.0 [facility] Comment on above: Performed By: #### 2 088063 #### [facility] [address] [place] [address] Lymphocytes (Bld) [#/Vol] 0.9 E9/L Low 1.0-4.0 [facility] Comment on above: Performed By: #### 2 415099 #### [facility] [address] [place] [address] Lymphocytes/100 WBC (Bld) 5.5 % Low 14.0-50.0 [facility] Comment on above: Performed By: #### 2 125355 #### [facility] [address] [place] [address] MCH (RBC) [Entitic mass] 31.6 pg Normal 27.0-34.0 [facility] Comment on above: Performed By: #### 2 745363 #### [facility] [address] [place] [address] MCHC (RBC) [Mass/Vol] 33.2 g/dL Normal 31.4-36.0 [facility] Comment on above: Performed By: #### 2 [id number] #### [facility] [address] [place] [address] MCV (RBC) [Entitic vol] 95.3 fL Normal 80.0-100.0 [facility] Comment on above: Performed By: #### 2 [id number] #### [facility] [address] [place] [address] Monocytes (Bld) [#/Vol] 1.2 E9/L High 0.2-1.0 [facility] Comment on above: Performed By: #### 2 245841 #### [facility] [address] [place] [address] Neutrophils (Bld) [#/Vol] 14.4 E9/L High 2.0-7.5 [facility] Comment on above: Performed By: #### 2 039658 #### [facility] [address] [place] [address] Neutrophils/100 WBC (Bld) 87.1 % High 36.0-75.0 [facility] Comment on above: Performed By: #### 2 759305 #### [facility] [address] [place] [address] Platelet mean volume (Bld) [Entitic vol] 7.4 fL Normal 6.4-10.8 [facility] Comment on above: Performed By: #### 2 894312 #### [facility] [address] [place] [address] Platelets (Bld) [#/Vol] 509.0 E9/L High 150.0-500. 0 [facility] Comment on above: Performed By: #### 2 638383 #### [facility] [address] [place] [address] RBC (Bld) [#/Vol] 3.8 E12/L Low 4.3-5.9 [facility] Comment on above: Performed By: #### 2 683645 #### [facility] [address] [place] [address] RBC size Nom (Bld) NORMAL Invalid Interpretation Code [facility] Comment on above: Performed By: #### 2 555062 #### [facility] [address] [place] [address] Toxic granules LM Ql (Bld) PRESENT Invalid Interpretation Code [facility] Comment on above: Performed By: #### 2 757100 #### [facility] [address] [place] [address] WBC corrected for nucl RBC Auto (Bld) [#/Vol] 16.6 E9/L High 4.0-11.0 [facility] Comment on above: Performed By: #### 2 066848 #### [facility] [address] [place] [address] CHEMISTRYOrdered By: SYSTEM SYSTEM on 10-08-2023 Amphetamines [...] Alternate Method Called to Anna sam by [id number] Interpretive Data: N egative Cutoff: <50 ng/mL [...] Called to Anna Sam In ER by [id number] No Confirmation Requested by Physician Unconfirmed by [...] Sensitivity Troponin I Instructions For Use, Graciela [place], December 2017) CHEMISTRYOrdered By: Lab ROP User on 10-08-2023 Glucose [Mass/Vol] 95 mg/dL Normal 55 - 99 mg/dL [facility] POC Subsection Comment on above: Result Comment: Katie farhan Meter POC Device SN [id number] 1 Invalid Interpretation Code [facility] POC Subsection POC User ID [id number] 1 Invalid Interpretation Code [facility] POC Subsection POC Username JOSE ADAMS Invalid Interpretation Code [facility] POC Subsection CKon 10-08-2023 Total CK 442 Int._Unit/L Abnormal 14-261 [facility] Comment on above: Result Comment: Crit ical Result Verified by Repeat Analysis Critical Result [id number] Called to and read back by: ADOLFO PUTNAM at: 10/08/2023 13:08:23 by:ROSEMARIE Performed By: #### 2 [id number] #### [facility] [address] [place] [address] COAGULATIONOrdered By: Brissa Dacosta on 10-08-2023 aPTT Coag (PPP) [Time] 47.8 s High 25.1 - 36.5 second(s) [facility] Auto Coag Comment on above: Interpretive Data: [...] the same coagulation reagent and instrumentation as [facility]. Currently there are no coagulation studies available worldwide for children to 14 days, and no normal ranges. Heparin therapeutic range (represented by Anti-Factor Xa activity of 0.2 - 0.4 U/mL) corresponds to PTT of 56.6 - 109.0 sec. INR Coag (PPP) [Relative time] 1.10 {INR} Invalid Interpretation Code [facility] Auto Coag Comment on above: Interpretive Data: I NR results are specifically intended to assess patients stabilized on long-term Anticoagulation therapy suggested INR s Less Intensive Anticoagulation 2.0 3.0 Conventional Range 3.0 4.5 PT Coag (PPP) [Time] 12.3 s Normal 9.4 - 12.5 second(s) [facility] Auto Coag Comment on above: Interpretive Data: [...] the same coagulation reagent and instrumentation as [facility]. Currently there are no coagulation studies available [...] contrast amount in ml's: [address] [facility] CT Chest w/o Contraston 05-2 CT [...] DO Transcribed by: RICHARD Technologist: ANGELES Mcguire [facility] CT Head or Brain w/o Contras [...] DO Transcribed by: RICHARD Technologist: ANGELES Mcguire [facility] CT Spine Cervical w/o Contra ston [...] DO Transcribed by: RICHARD Technologist: ANGELES Mcguire [facility] Capillary Glucose POCon 09-12 Glucose [Mass/Vol] 95 mg/dL Normal 55-99 [facility] Comment on above: Result Comment: Katie real Meter Performed By: #### 2 [id number] #### [facility] [address] [place] [address] Consent for Treatmenton 09-12 Consent for Treatment [id number]#[id number] Normal [facility] ED Clinical Summaryon 2023 ED Clinical Summary (Inserted Image. Patricia ble to display) [address] [address] ED Clinical Summary Person Information Name: CATHERINE ADAMSON/[place] Age: 63 Years : 1960 Sex: Female Language: Chilean PCP: XIMENA ASTUDILLO MD Marital Status: Visit Id: Visit Reason: Leg pain-swelling; Hip pain-swelling; Dizziness; Fall; FALL Speciality: Acuity: 2 Enc Type: Inpatient Med Service: Emergency Arrival: 10/08/2023 11:57:18 Discharge: LOS: 000 06:15 Checkin: 10/08/2023 11:57:18 Checkout: 10/08/2023 18:12:00 Dispo Type: Admitted as IP to this [facility] EVENTS: Event Name Event Status Request Date/Time [...] 17:09:41 Patient Care Request 10/08/2023 17:46:12 ADDRESS: [address] [place] [phone] PHYS DOC NOTES: Addendum by Richardson (more content not included)... Normal [facility] ED Note-Physicianon 10-08-19 24 ED Note-Physician [...] or rigidity noted. Neurological: A&O, normal equal actuarial director strength, normal speech, normal coordination, normal motor, [...] and findings consistent with pancreatitis. It does outside operator that the patient drinks at least 6 [...] EDT, S (more content not included)... Normal [facility] Comment on above: Result Comment: Elec [...] or rigidity noted. Neurological: A&O, normal equal actuarial director strength, normal speech, normal coordination, normal motor, [...] and findings consistent with pancreatitis. It does outside operator that the patient drinks at least 6 drinks of alcohol per day. Assessment/Plan Alcohol abuse (F10.10: Alcohol abuse, uncomplicated) Colles' fracture (S52.868Z: Colles' fracture of unspecified radius, initial encounter for closed fracture) Hip fracture, right (S72.001A: Fracture of unspecified part of neck of right femur, initial encounter for closed fracture) Pancreatitis, acute (K85.90: Acute pancreatitis without necrosis or infection, unspecified) Rhabdomyolysis (M62.82: Rhabdomyolysis) Orders: morphine, 4 mg = 2 mL, Injection, IV Push, Once, Stop date 10/08/23 12:02:00 EDT, S (more content not included)... Normal [facility] Comment on above: Result Comment: Elec tronically Signed By: Rigo Anderson DO\.br\Date and Time Signed: 10/08/23 14:31 EDT ED Patient Education Noteon 10-08-2023 ED Patient Education Note Normal [facility] ED Patient Summaryon 024 ED Patient Summary (Inserted Image. Patricia ble to display) [place] [id number] Patient Discharge Instructions Person Information Name: CATHERINE ADAMSON Age: 63 Years Arrival Date: 10/08/2023 11:57:18 Discharge Diagnosis: Alcohol abuse; Colles' fracture; Hip fracture, right; Pancreatitis, acute; Rhabdomyolysis Primary Care Physician: XIMENA ASTUDILLO MD Provider Information Primary Provider: Rigo Anderson DO [employer] Specialist:None The exam and treatment you received in the Emergency Department were for an urgent problem and are not intended as complete care. It is important that you follow up with a doctor, nurse practitioner, or physician?s assistant activities director for ongoing care. If your symptoms become [...] opioids can be used to help relieve wvgtbufx-de-rjeozb pain and are often prescribed following a [...] be struggling with addiction, tell your health care transitions nurse and ask for guidance or call [facility]?S National Helpline at 6-996-176-ECUY. v Source: US Department of Health and Human Services/Center for Disease Control & Prevention [employer] (more content not included)... Normal [facility] Ethanolon 10-08-2023 Ethanol Lvl <10 Normal <=11 [facility] Comment on above: Performed By: #### 2 [id number] #### [facility] [address] [place] [address] HEMATOLOGYOrdered By: SYSTEM SYSTEM on 10-08-2023 RBC size Nom (Bld) NORMAL *NA* (10/08/23 12:00 PM) Invalid Interpretation Code Remisol Heme Toxic granules LM Ql (Bld) PRESENT *NA* (10/08/23 12:00 PM) Invalid Interpretation Code Remisol Heme Hep Func PanelOrdered By: Navidog SYSTEM on 10-08-2023 Albumin [Mass/Vol] 2.9 g/dL Low 3.3 - 5.0 gm/dL Remisol Chem Comment on above: Performed By: #### 2 [id number] #### [facility] [address] [place] [address] Bilirubin [Mass/Vol] 0.6 mg/dL Normal 0.0 - 1.1 mg/dL Remisol Chem Comment on above: Performed By: #### 2 [id number] #### [facility] [address] [place] [address] Bilirubin.direct [Mass/Vol] 0.2 mg/dL Normal 0.0 - 0.4 mg/dL Remisol Chem Comment on above: Performed By: #### 2 [id number] #### [facility] [address] [place] [address] Bilirubin.indirect [Mass or moles/Vol] 0.4 mg/dL Normal 0.1 - 0.9 mg/dL Remisol Chem Comment on above: Performed By: #### 2 [id number] #### [facility] [address] [place] [address] Globulin (S) [Mass/Vol] 3.0 g/dL Normal 1.4 - 4.0 gm/dL Remisol Chem Comment on above: Performed By: #### 2 [id number] #### [facility] [address] [place] [address] Protein [Mass/Vol] 5.9 g/dL Low 6.0 - 7.8 gm/dL Remisol Chem Comment on above: Performed By: #### 2 [id number] #### [facility] [address] [place] [address] Hep Func Panelon 10-08-2023 Albumin/Globulin (S) [Mass conc ratio] 1.0 Low 1.1-2.2 [facility] Comment on above: Performed By: #### 2 [id number] #### [facility] [address] [place] [address] ALP [Catalytic activity/Vol] 106 Int._Unit/L High 21-98 [facility] Comment on above: Performed By: #### 2 [id number] #### [facility] [address] [place] [address] ALT No additional P-5'-P [Catalytic activity/Vol] 35 Int._Unit/L Normal 6-46 [facility] Comment on above: Performed By: #### 2 [id number] #### [facility] [address] [place] [address] AST [Catalytic activity/Vol] 65 Int._Unit/L High 5-43 [facility] Comment on above: Performed By: #### 2 [id number] #### [facility] [address] [place] [address] Lactic AcidOrdered By: Digital Envoy on 10-08-2023 Lactic Acid Lvl 1.9 mmol/L Normal 0.5 - 2.2 mmol/L Remisol Chem Comment on above: Performed By: #### 2 [id number] #### [facility] [address] [place] [address] Lipase LevelOrdered By: SYST EM SYSTEM on 10-08-2023 Lipase [Catalytic activity/Vol] 256 U/L High 13 - 58 unit/L Remisol Chem Comment on above: Performed By: #### 2 [id number] #### [facility] [address] [place] [address] Magnesiumon 10-08-2023 Magnesium [Mass/Vol] 1.8 mg/dL Normal 1.3-2.4 [facility] Comment on above: Performed By: #### 2 [id number] #### [facility] [address] [place] [address] Monitor Recordon 10-08-2023 Monitor Record [id number] Normal [facility] Monitor Record [id number] Normal [facility] No Panel InformationOrdered By: ANGPROCESSSERVER MICROBIOLOGY on 10-08-2023 Blood Culture Charcoal No growth at 4 days. Final to follow at [address] [facility] Blood Culture Charcoal No growth at 4 days. Final to follow at [address] [facility] PT & PTTon 10-08-2023 aPTT Coag (PPP) [Time] 47.8 second(s) High 25.1-36.5 [facility] Comment on above: Result Comment: Para [...] the same coagulation reagent and instrumentation as [facility]. Currently there are no coagulation studies available worldwide for children to 14 days, and no normal ranges. Heparin therapeutic range (represented by Anti-Factor Xa activity of 0.2 - 0.4 U/mL) corresponds to PTT of 56.6 - 109.0 sec. Performed By: #### 1 [id number] #### [facility] [address] [place] [address] INR Coag (PPP) [Relative time] 1.10 {INR} Invalid Interpretation Code [facility] Comment on above: Result Comment: INR results are specifically intended to assess patients stabilized on long-term Anticoagulation therapy suggested INR?s ?Less Intensive Anticoagulation? 2.0 ? 3.0 Conventional Range 3.0 ? 4.5 Performed By: #### 1 [id number] #### [facility] [address] [place] [address] PT Coag (PPP) [Time] 12.3 second(s) Normal 9.4-12.5 [facility] Comment on above: Result Comment: 15 [...] the same coagulation reagent and instrumentation as [facility]. Currently there are no coagulation studies available worldwide for children to 14 days, and no normal ranges. Performed By: #### 1 [id number] #### [facility] [address] [place] [address] Pre-Arrival Noteon 4 Pre-Arrival Note Pre-Arrival Summary Name: , [facility] Current Date: 10/08/2023 11:57:48 EDT Gender: Female Date of : Age: 63 Pre-Arrival Type: EMS ETA: 10/08/2023 12:18:00 EDT Primary Care Physician: Presenting Problem: fell , R hip injury Pre-Arrival User: Jayla Sharp RN Referring Source: Location: Completion Date/Time: 10/08/2023 11:49:00 [facility] Emergency Department Pre-Hospital Report Form Vital Signs: 160/64; 125; 94% on 4L Pre-Hospital Report: pt fell on , found today. R hip injury, + anticoags. A/Ox3. Treatment in Route: 18 L AC Response to Treatment: Misc. Issues: Normal [facility] Troponinon 10-08-2023 Troponin 26.70 pg/mL Normal 10.10-27.1 0 [facility] Comment on above: Result Comment: The 95% CI (Confidence Interval) PPV (Positive Predictive Value) for myocardial infarction in females is 38 pg/mL, in males 51 pg/mL. The results should be used in conjunction with clinical conditions of myocardial infarction. (Access High Sensitivity Troponin I Instructions For Use, Graciela Desean, December 2017) Performed By: #### 2 [id number] #### [facility] [address] [place] [address] U Drug Screenon 10-08-2023 Amphetamines Screen method >1000 ng/mL Ql (U) Negative Normal NEGATIVE [facility] Comment on above: Result Comment: Nega tive Cutoff: <1000 ng/mL Performed By: #### 2 [id number] #### [facility] [address] [place] [address] Barbiturates Screen Ql (U) Negative Normal NEGATIVE [facility] Comment on above: Result Comment: Nega tive Cutoff: <200 ng/mL Performed By: #### 2 [id number] #### [facility] [address] [place] [address] Benzodiazepines Ql (U) Negative Normal NEGATIVE [facility] Comment on above: Result Comment: Nega tive Cutoff: <200 ng/mL Performed By: #### 2 [id number] #### [facility] [address] [place] [address] Cannabinoids Screen Ql (U) Positive Abnormal NEGATIVE [facility] Comment on above: Result Comment: Crit ical Result Verified by Repeat Analysis No Confirmation Requested by Physician Unconfirmed by an Alternate Method Called to Anna sam by [id number] Negative Cutoff: <50 ng/mL Performed By: #### 2 [id number] #### [facility] [address] [place] [address] Cocaine Ql (U) Negative Normal NEGATIVE [facility] Comment on above: Result Comment: Nega tive Cutoff: <300 ng/mL Performed By: #### 2 [id number] #### [facility] [address] [place] [address] Opiates Screen Ql (U) Positive Abnormal NEGATIVE [facility] Comment on above: Result Comment: Crit ical Result Verified by Repeat Analysis Called to Anna Sam In ER by [id number] No Confirmation Requested by Physician Unconfirmed by an Alternate Method Negative Cutoff: <300 ng/mL Performed By: #### 2 [id number] #### [facility] [address] [place] [address] Phencyclidine Screen method >25 ng/mL Ql (U) Negative Normal NEGATIVE [facility] Comment on above: Result Comment: Nega tive Cutoff: <25 ng/mL These drug screen results are to be used for medical (i.e., treatment) purposes only. Unconfirmed drug screening results must not be used for non-medical purposes (e.g., employment testing, legal testing). Performed By: #### 2 [id number] #### [facility] [address] [place] [address] U Fentanyl Positive Abnormal NEGATIVE [facility] Comment on above: Result Comment: Crit [...] testing, legal testing). Performed By: #### 2 [id number] #### [facility] [address] [place] [id number] UA with Cult Rflxon 10-08-19 24 Bacteria Auto Ql (U) 4+ /HPF Abnormal Trace [facility] Comment on above: Performed By: #### 4 [id number] #### [facility] [address] [place] [address] Clarity (U) Ex.Turbid Abnormal Clear [facility] Comment on above: Performed By: #### 4 [id number] #### [facility] [address] [place] [address] Color (U) [place] Abnormal Yellow [facility] Comment on above: Result Comment: Micr oscopic readings are only performed on those samples that meet specific criteria set forth by [facility]. Performed By: #### 4 [id number] #### [facility] [address] [place] [address] Hemoglobin Auto test strip (U) [Mass/Vol] 3+ mg/dL Abnormal Negative [facility] Comment on above: Performed By: #### 4 [id number] #### [facility] [address] [place] [address] Ketones Auto test strip Ql (U) 2+ mg/dL Abnormal Negative [facility] Comment on above: Performed By: #### 4 [id number] #### [facility] [address] [place] [address] Leukocyte clumps Auto (Urine sed) [#/Area] >30 Abnormal [facility] Comment on above: Performed By: #### 4 [id number] #### [facility] [address] [place] [address] Leukocyte esterase Auto test strip Ql (U) 500 Nima/uL Abnormal Negative [facility] Comment on above: Performed By: #### 4 [id number] #### [facility] [address] [place] [address] Mucus Auto Ql (U) 1+ [id number] Abnormal Negative [facility] Comment on above: Performed By: #### 4 [id number] #### [facility] [address] [place] [address] Nitrite Auto test strip Ql (U) 2+ mg/dL Abnormal Negative [facility] Comment on above: Performed By: #### 4 [id number] #### [facility] [address] [place] [address] pH (U) 6.0 [pH] Invalid Interpretation Code 5.0-9.0 [facility] Comment on above: Performed By: #### 4 [id number] #### [facility] [address] [place] [address] Protein Ql (U) 2+ mg/dL Abnormal Negative [facility] Comment on above: Performed By: #### 4 [id number] #### [facility] [address] [place] [address] RBC Ql (U) >75 Abnormal 0-3 [facility] Comment on above: Performed By: #### 4 [id number] #### [facility] [address] [place] [address] Specific gravity (U) [Rel density] 1.018 Invalid Interpretation Code 1.005-1.03 0 [facility] Comment on above: Performed By: #### 4 [id number] #### [facility] [address] [place] [address] WBC Auto (Urine sed) [#/Area] >75 Abnormal 0-5 [facility] Comment on above: Performed By: #### 4 [id number] #### [facility] [address] [place] [address] Type of Urine collection method Frankel Normal [facility] Comment on above: Performed By: #### 4 [id number] #### [facility] [address] [place] [address] UA with Cult RflxOrdered By: SYSTEM SYSTEM on 10-08-2023 Bilirubin Ql (U) Negative Normal Negativemg /dL [facility] UA Auto SS Comment on above: Performed By: #### 4 [id number] #### [facility] [address] [place] [address] Glucose Ql (U) Negative Normal Negativemg /dL [facility] UA Auto SS Comment on above: Performed By: #### 4 [id number] #### [facility] [address] [place] [address] Urobilinogen (U) [Mass/Vol] Negative Normal Negativemg /dL [facility] UA Auto SS Comment on above: Performed By: #### 4 [id number] #### [facility] [address] [place] [address] URINALYSISOrdered By: SYSTEM SYSTEM on 10-08-2023 Bacteria Auto Ql (U) 4+ /HPF Invalid Interpretation Code Trace/HPF [facility] UA Auto SS Clarity (U) Ex.Turbid *ABN* (10/08/23 2:00 PM) Invalid Interpretation Code Clear [facility] UA Auto SS Color (U) [place] 3 *ABN* (10/08/23 2:00 PM) Invalid Interpretation Code Yellow [facility] UA Auto SS Comment on above: Interpretive Data: M icroscopic readings are only performed on those samples that meet specific criteria set forth by [facility]. Hemoglobin Auto test strip (U) [...] 2+ mg/dL Invalid Interpretation Code Negativemg /dL [facility] UA Auto SS pH (U) 6.0 *NA* (10/08/23 2:00 PM) Invalid Interpretation Code 5.0 - 9.0 [facility] UA Auto SS Protein Ql (U) 2+ mg/dL Invalid Interpretation Code Negativemg /dL [facility] UA Auto SS RBC Ql (U) >75 graded/HPF Invalid Interpretation Code 0-3graded/ HPF [facility] UA Auto SS Specific gravity (U) [Rel density] 1.018 *NA* (10/08/23 2:00 PM) Invalid Interpretation Code 1.005 - 1.030 [facility] UA Auto SS WBC Auto (Urine sed) [#/Area] >75 graded/HPF Invalid Interpretation Code 0-5graded/ HPF [facility] UA Auto SS URINALYSISOrdered By: Rigo clemente on 10-08-2023 UA Spec Desc Frankel (10/08/23 2:00 PM) Normal [facility] UA Auto SS Work Phone: XR Forearm [...] mGy = na DAP = na Normal [facility] XR Hip 2-3 Views Right + [...] mGy = na DAP = na Normal [facility] XR Wrist 3+ Views Righton XR [...] mGy = na DAP = na Normal [facility] eGFRon 10-08-2023 eGFR 99 mL/min/1.73 m2 Normal >=59 [facility] Comment on above: Order Comment: Order added by Discern Expert. Performed By: #### 1 [id number] #### [address] [address] BNPon 08-19-2022 Natriuretic peptide B (Bld) [Mass/Vol] 233.0 pg/mL Normal <=900.0 [facility] Comment on above: Performed By: #### L IVER #### [facility] [address] [place] [address] Dr. Shine Del Rosario CARDIAC WILD ADMITon 023 CK [Catalytic activity/Vol] 59 U/L Normal 26-192 [facility] Comment on above: Performed By: #### L IVER #### [facility] [address] [place] [address] Dr. Shine Del Rosario CK.MB [Mass/Vol] ng/mL Normal <=3.60 [facility] Comment on above: Performed By: #### L IVER #### [facility] [address] [place] [address] Dr. Shine Del Rosario HSTROP 6.4 pg/mL Normal 4.0-51.3 [facility] Comment on above: Result Comment: CUT- OFF POINTS HAVE BEEN ESTABLISHED BASED ON THE FOURTH UNIVERSAL DEFINITIONS OF MYOCARDIAL INFARCTION. THE UPPER REFERENCE LIMIT (URL) OF TROPONIN, DEFINED THE 99TH PERCENTILE OF cTnI DISTRIBUTION IN A REFERENCE POPULATION, HAS BEEN CONFIRMED THE DECISION THRESHOLD FOR VT DIAGNOSIS. Performed By: #### L IVER #### [facility] [address] [place] [address] Dr. Shine Del Rosario YANG 70 ng/mL Normal 9-82 [facility] Comment on above: Performed By: #### L IVER #### [facility] [address] [place] [address] Dr. Shine Del Rosario CBC W MANUAL DIFFon 08-20-19 23 ATYPICAL LYMPH # Normal [facility] Comment on above: Performed By: #### P HVEN #### [facility] [address] [place] [address] Dr. Shine Del Rosario ATYPICAL LYMPH % Normal [facility] Comment on above: Performed By: #### P HVEN #### [facility] [address] [place] [address] Dr. Shine Del Rosario BAND # Normal 0.0-0.3 [facility] Comment on above: Performed By: #### P HVEN #### [facility] [address] [address] [address] Shine Del Rosario BAND % Normal 0-5 [facility] Comment on above: Performed By: #### P HVEN #### [facility] [address] [place] [address] Dr. Shine Del Rosario BASOM # 0.00 103/ul Normal 0.00-0.10 [facility] Comment on above: Performed By: #### P HVEN #### [facility] [address] [place] [address] Dr. Shine Del Rosario BASOM % 0.0 % Critically low 0.2-2.0 [facility] Comment on above: Performed By: #### P HVEN #### [facility] [address] [place] [address] Dr. Shine Del Rosario BLAST # Normal [facility] Comment on above: Performed By: #### P HVEN #### [facility] [address] [address] [address] Shine Del Rosario BLAST % Normal [facility] Comment on above: Performed By: #### P HVEN #### [facility] [address] [place] [address] Dr. Shine Del Rosario CORRECTED WBC Normal 4.0-11.0 [facility] Comment on above: Performed By: #### P HVEN #### [facility] [address] [address] [address] Shine Del Rosario EOS # 0.50 103/ul Normal 0.00-0.70 [facility] Comment on above: Performed By: #### P HVEN #### [facility] [address] [place] [address] Dr. Shine Del Rosario EOS% 7.0 % Normal 0.9-7.0 [facility] Comment on above: Performed By: #### P HVEN #### [facility] [address] [place] [address] Dr. Shine Del Rosario HCT 37.0 % Normal 36.0-48.0 [facility] Comment on above: Performed By: #### P HVEN #### [facility] [address] [address] [address] Shine Del Rosario HGB 12.3 g/dl Normal 12.0-16.0 [facility] Comment on above: Performed By: #### P HVEN #### [facility] [address] [address] [address] Shine Del Rosario LYMPHM # 0.58 103/ul Critically low 1.20-3.80 [facility] Comment on above: Performed By: #### P HVEN #### [facility] [address] [place] [address] Dr. Shine Del Rosario LYMPHM% 8.0 % Critically low 20.5-60.0 [facility] Comment on above: Performed By: #### P HVEN #### [facility] [address] [place] [address] Dr. Shine Del Rosario MCH 32.5 pg Normal 26.7-34.0 [facility] Comment on above: Performed By: #### P HVEN #### [facility] [address] [place] [address] Dr. Shine Del Rosario MCHC 33.2 g/dl Normal 29.9-35.2 [facility] Comment on above: Performed By: #### P HVEN #### [facility] [address] [place] [address] Dr. Shine Del Rosario MCV 97.6 fL Normal 81.0-99.0 [facility] Comment on above: Performed By: #### P HVEN #### [facility] [address] [place] [address] Dr. Shine Del Rosario METAMYELOCYTE # Normal [facility] Comment on above: Performed By: #### P HVEN #### [facility] [address] [place] [address] Dr. Shine Del Rosario METAMYELOCYTE % Normal [facility] Comment on above: Performed By: #### P HVEN #### [facility] [address] [place] [address] Dr. Shine Del Rosario MONOM# 0.86 103/ul Critically high 0.30-0.80 [facility] Comment on above: Performed By: #### P HVEN #### [facility] [address] [address] [address] Shine Del Rosario MONOM% 12.0 % Normal 1.7-12.0 [facility] Comment on above: Performed By: #### P HVEN #### [facility] [address] [place] [address] Dr. Shine Del Rosario MPV 8.9 fL Critically low 9.5-13.5 [facility] Comment on above: Performed By: #### P HVEN #### [facility] [address] [place] [address] Dr. Shine Del Rosario MYELOCYTE # Normal [facility] Comment on above: Performed By: #### P HVEN #### [facility] [address] [place] [address] Dr. Shine Del Rosario MYELOCYTE % Normal [facility] Comment on above: Performed By: #### P HVEN #### [facility] [address] [place] [address] Dr. Shine Del Rosario NRBC Normal [facility] Comment on above: Performed By: #### P HVEN #### [facility] [address] [place] [address] Dr. Shine Del Rosario PLT 288 103/ul Normal 150-450 [facility] Comment on above: Performed By: #### P HVEN #### [facility] [address] [place] [address] Dr. Shine Del Rosario RBC 3.79 106/ul Critically low 4.20-5.40 [facility] Comment on above: Performed By: #### P HVEN #### [facility] [address] [place] [address] Dr. Shine Del Rosario RDW 11.3 % Normal 11.0-15.0 [facility] Comment on above: Performed By: #### P HVEN #### [facility] [address] [place] [address] Dr. Shine Del Rosario SEG # 5.26 103/ul Normal 1.40-6.50 [facility] Comment on above: Performed By: #### P HVEN #### [facility] [address] [place] [address] Dr. Shine Del Rosario SEG % 73.0 % Normal 43.0-75.0 [facility] Comment on above: Performed By: #### P HVEN #### [facility] [address] [place] [address] Dr. Shine Del Rosario WBC 7.2 103/ul Normal 4.0-11.0 [facility] Comment on above: Performed By: #### P HVEN #### [facility] [address] [place] [address] Dr. Shine Del Rosario PROF 14(COMP METB)on 023 Albumin [Mass/Vol] 3.4 g/dL Normal 3.4-5.0 [facility] Comment on above: Performed By: #### L IVER #### [facility] [address] [place] [address] Dr. Shine Del Rosairo Albumin/Globulin [Mass ratio] 0.9 {ratio} Normal [facility] Comment on above: Performed By: #### L IVER #### [facility] [address] [place] [address] Dr. Shine Del Rosario ALP [Catalytic activity/Vol] 152 U/L Critically high 46-116 [facility] Comment on above: Performed By: #### L IVER #### [facility] [address] [place] [address] Dr. Shine Del Rosario ALT [Catalytic activity/Vol] 126 U/L Critically high 14-59 [facility] Comment on above: Performed By: #### L IVER #### [facility] [address] [place] [address] Dr. Shine Del Rosario Anion gap [Moles/Vol] 15.5 mmol/L Normal [facility] Comment on above: Performed By: #### L IVER #### [facility] [address] [place] [address] Dr. Shine Del Rosario AST [Catalytic activity/Vol] 158 U/L Critically high 15-37 [facility] Comment on above: Performed By: #### L IVER #### [facility] [address] [address] [address] Shine Del Rosario Bilirubin [Mass/Vol] 1.3 mg/dL Critically high 0.2-1.0 [facility] Comment on above: Performed By: #### L IVER #### [facility] [facility] [address] [address] [address] Shine Del Rosario Calcium [Mass/Vol] 9.5 mg/dL Normal 8.5-10.1 [facility] Comment on above: Performed By: #### L IVER #### [facility] [address] [place] [address] Dr. Shine Del Rosario Chloride [Moles/Vol] 95 mmol/L Critically low 98-107 [facility] Comment on above: Performed By: #### L IVER #### [facility] [address] [place] [address] Dr. Shine Del Rosario CO2 [Moles/Vol] 22.0 mmol/L Normal 21.0-32.0 [facility] Comment on above: Performed By: #### L IVER #### [facility] [address] [place] [address] Dr. Shine Del Rosario Creatinine [Mass/Vol] 0.65 mg/dL Normal 0.55-1.02 [facility] Comment on above: Performed By: #### L IVER #### [facility] [address] [place] [address] Dr. Shine Del Rosario EGFR-AF GUINEAN >60 Normal >=60 [facility] Comment on above: Performed By: #### L IVER #### [facility] [address] [place] [address] Dr. Shine Del Rosario EGFR-NON AF GUINEAN >60 Normal >=60 [facility] Comment on above: Performed By: #### L IVER #### [facility] [address] [place] [address] Dr. Shine Del Rosario Globulin (S) [Mass/Vol] 3.9 g/dL Normal [facility] Comment on above: Performed By: #### L IVER #### [facility] [address] [address] [address] Shine Del Rosario Glucose [Mass/Vol] 97 mg/dL Normal 74-106 [facility] Comment on above: Performed By: #### L IVER #### [facility] [address] [address] [address] Shine Del Rosario Potassium [Moles/Vol] 4.5 mmol/L Normal 3.5-5.1 [facility] Comment on above: Performed By: #### L IVER #### [facility] [address] [address] [address] Shine Del Rosario Protein [Mass/Vol] 7.3 g/dL Normal 6.4-8.2 [facility] Comment on above: Performed By: #### L IVER #### [facility] [address] [address] [address] Shine Del Rosario Sodium [Moles/Vol] 128 mmol/L Critically low 136-145 [facility] Comment on above: Performed By: #### L IVER #### [facility] [address] [address] [address] Shine Del Rosario Urea nitrogen [Mass/Vol] 5.0 mg/dL Critically low 7.0-18.0 [facility] Comment on above: Performed By: #### L IVER #### [facility] [address] [address] [address] Shine Del Rosario Urea nitrogen/Creatinine [Mass ratio] 7.7 mg/mg Normal [facility] Comment on above: Performed By: #### L IVER #### [facility] [address] [address] [address] Shine Del Rosario XR CHEST 1 [...] BEBETO PUTNAM Date: 2022-08-19 10:32 Normal [facility] BNPon 05-10-2022 Natriuretic peptide B (Bld) [Mass/Vol] 952.0 pg/mL Critically high <=900.0 [facility] Comment on above: Performed By: #### L IVER #### [facility] [address] [place] [address] Dr. Shine Del Rosario CBC AUTO DIFFon 05-10-2022 BASO # 0.1 103/ul Normal 0.0-0.1 [facility] Comment on above: Performed By: #### P TT, PT #### [facility] [address] [place] [address] Dr. Shine Del Rosario Basophils/100 WBC (Bld) 0.7 % Normal 0.2-2.0 [facility] Comment on above: Performed By: #### P TT, PT #### [facility] [address] [place] [address] Dr. Shine Del Rosario EO # 0.2 103/ul Normal 0.0-0.7 [facility] Comment on above: Performed By: #### P TT, PT #### [facility] [address] [place] [address] Dr. Shine Del Rosario Eosinophils/100 WBC (Bld) 2.1 % Normal 0.9-7.0 [facility] Comment on above: Performed By: #### P TT, PT #### [facility] [address] [place] [address] Dr. Shine Del Rosario Erythrocyte distribution width (RBC) [Ratio] 12.6 % Normal 11.0-15.0 [facility] Comment on above: Performed By: #### P TT, PT #### [facility] [address] [place] [address] Dr. Shine Del oRsario Hematocrit (Bld) [Volume fraction] 35.0 % Critically low 36.0-48.0 [facility] Comment on above: Performed By: #### P TT, PT #### [facility] [address] [place] [address] Dr. Shine Del Rosario Hemoglobin (Bld) [Mass/Vol] 11.8 g/dL Critically low 12.0-16.0 [facility] Comment on above: Performed By: #### P TT, PT #### [facility] [address] [place] [address] Dr. Shine Del Rosario IG # 0.04 10e3/ul Critically high 0.00-0.03 [facility] Comment on above: Performed By: #### P TT, PT #### [facility] [address] [place] [address] Dr. Shine Del Rosario IG % 0.5 % Normal 0.0-0.5 [facility] Comment on above: Performed By: #### P TT, PT #### [facility] [address] [place] [address] Dr. Shine Del Rosario LYMPH # 1.2 103/ul Normal 1.2-3.8 [facility] Comment on above: Performed By: #### P TT, PT #### [facility] [address] [place] [address] Dr. Shine Del Rosario Lymphocytes/100 WBC (Bld) 14.2 % Critically low 20.5-60.0 [facility] Comment on above: Performed By: #### P TT, PT #### [facility] [address] [place] [address] Dr. Shine Del Rosario MANUAL DIFF REQ NO Normal [facility] Comment on above: Performed By: #### P TT, PT #### [facility] [address] [place] [address] Dr. Shine Del Rosario MCH (RBC) [Entitic mass] 33.2 pg Normal 26.7-34.0 [facility] Comment on above: Performed By: #### P TT, PT #### [facility] [address] [place] [address] Dr. Shine Del Rosario MCHC (RBC) [Mass/Vol] 33.7 g/dL Normal 29.9-35.2 [facility] Comment on above: Performed By: #### P TT, PT #### [facility] [address] [place] [address] Dr. Shine Del Rosario MCV (RBC) [Entitic vol] 98.6 fL Normal 81.0-99.0 [facility] Comment on above: Performed By: #### P TT, PT #### [facility] [address] [place] [address] Dr. Shine Del Rosario MONO # 0.8 103/ul Normal 0.3-0.8 [facility] Comment on above: Performed By: #### P TT, PT #### [facility] [address] [place] [address] Dr. Shine Del Rosario Monocytes/100 WBC (Bld) 9.1 % Normal 1.7-12.0 [facility] Comment on above: Performed By: #### P TT, PT #### [facility] [address] [place] [address] Dr. Shine Del Rosario NEUT # 6.4 103/ul Normal 1.4-6.5 [facility] Comment on above: Performed By: #### P TT, PT #### [facility] [address] [place] [address] Dr. Shine Del Rosario Neutrophils/100 WBC (Bld) 73.4 % Normal 43.0-75.0 [facility] Comment on above: Performed By: #### P TT, PT #### [facility] [address] [place] [address] Dr. Shine Del Rosario Platelet mean volume (Bld) [Entitic vol] 8.7 fL Critically low 9.5-13.5 [facility] Comment on above: Performed By: #### P TT, PT #### [facility] [address] [place] [address] Dr. Shine Del Rosario PLT 394 103/ul Normal 150-450 [facility] Comment on above: Performed By: #### P TT, PT #### [facility] [address] [place] [address] Dr. Shine Del Rosario RBC 3.55 106/ul Critically low 4.20-5.40 [facility] Comment on above: Performed By: #### P TT, PT #### [facility] [address] [address] [address] Shine Del Rosario WBC 8.7 103/ul Normal 4.0-11.0 [facility] Comment on above: Performed By: #### P TT, PT #### [facility] [address] [place] [address] Dr. Shine Del Rosario PROF 14(COMP METB)on 022 Albumin [Mass/Vol] 3.1 g/dL Critically low 3.4-5.0 [facility] Comment on above: Performed By: #### L IVER #### [facility] [address] [place] [address] Dr. Shine Del Rosario Albumin/Globulin [Mass ratio] 0.8 {ratio} Normal [facility] Comment on above: Performed By: #### L IVER #### [facility] [address] [place] [address] Dr. Shine Del Rosario ALP [Catalytic activity/Vol] 167 U/L Critically high 46-116 [facility] Comment on above: Performed By: #### L IVER #### [facility] [address] [place] [address] Dr. Shine Del Rosario ALT [Catalytic activity/Vol] 50 U/L Normal 14-59 [facility] Comment on above: Performed By: #### L IVER #### [facility] [address] [place] [address] Dr. Shine Del Rosario Anion gap [Moles/Vol] 11.6 mmol/L Normal [facility] Comment on above: Performed By: #### L IVER #### [facility] [address] [place] [address] Dr. Shine Del Rosario AST [Catalytic activity/Vol] 46 U/L Critically high 15-37 [facility] Comment on above: Performed By: #### L IVER #### [facility] [address] [place] [address] Dr. Shine Del Rosario Bilirubin [Mass/Vol] 0.7 mg/dL Normal 0.2-1.0 [facility] Comment on above: Performed By: #### L IVER #### [facility] [address] [address] [address] Shine Del Rosario Calcium [Mass/Vol] 9.0 mg/dL Normal 8.5-10.1 [facility] Comment on above: Performed By: #### L IVER #### [facility] [address] [place] [address] Dr. Shine Del Rosario Chloride [Moles/Vol] 100 mmol/L Normal 98-107 [facility] Comment on above: Performed By: #### L IVER #### [facility] [address] [place] [address] Dr. Shine Del Rosario CO2 [Moles/Vol] 24.7 mmol/L Normal 21.0-32.0 [facility] Comment on above: Performed By: #### L IVER #### [facility] [address] [place] [address] Dr. Shine Del Rosario Creatinine [Mass/Vol] 0.61 mg/dL Normal 0.55-1.02 [facility] Comment on above: Performed By: #### L IVER #### [facility] [address] [place] [address] Dr. Shine Del Rosario EGFR-AF GUINEAN >60 Normal >=60 [facility] Comment on above: Performed By: #### L IVER #### [facility] [address] [place] [address] Dr. Shine Del Rosario EGFR-NON AF GUINEAN >60 Normal >=60 [facility] Comment on above: Performed By: #### L IVER #### [facility] [address] [place] [address] Dr. Shine Del Rosario Globulin (S) [Mass/Vol] 3.7 g/dL Normal [facility] Comment on above: Performed By: #### L IVER #### [facility] [address] [place] [address] Dr. Shine Del Rosario Glucose [Mass/Vol] 98 mg/dL Normal 74-106 [facility] Comment on above: Performed By: #### L IVER #### [facility] [address] [place] [address] Dr. Shine Del Rosario Potassium [Moles/Vol] 4.3 mmol/L Normal 3.5-5.1 [facility] Comment on above: Performed By: #### L IVER #### [facility] [address] [place] [address] Dr. Shine Del Rosario Protein [Mass/Vol] 6.8 g/dL Normal 6.4-8.2 [facility] Comment on above: Performed By: #### L IVER #### [facility] [address] [place] [address] Dr. Shine Del Rosario Sodium [Moles/Vol] 132 mmol/L Critically low 136-145 [facility] Comment on above: Performed By: #### L IVER #### [facility] [address] [place] [address] Dr. Shine Del Rosario Urea nitrogen [Mass/Vol] 6.0 mg/dL Critically low 7.0-18.0 [facility] Comment on above: Performed By: #### L IVER #### [facility] [address] [place] [address] Dr. Shine Del Rosario Urea nitrogen/Creatinine [Mass ratio] 9.8 mg/mg Normal [facility] Comment on above: Performed By: #### L IVER #### [facility] [address] [place] [address] Dr. Shine Del Rosario PROTIMEon 05-10-2022 INR Coag (PPP) [Relative time] 0.96 {INR} Normal [facility] Comment on above: Performed By: #### P TT, PT #### [facility] [address] [place] [address] Dr. Shine Del Rosario INR GUIDELINES SEE BELOW Normal [facility] Comment on above: Result Comment: JUDY RED INR: 2.0 - 3.0 CONDITIONS NOT LISTED BELOW 2.5 - 3.5 FOR PROSTHETIC HEART VALVE REPLACEMENT 2.5 - 3.5 RECURRENT THROMBOSIS Performed By: #### P TT, PT #### [facility] [address] [place] [address] Dr. Shine Del Rosario PT Coag (PPP) [Time] 10.4 s Normal 9.0-11.6 [facility] Comment on above: Performed By: #### P TT, PT #### [facility] [address] [place] [address] Dr. Shine Del Rosario PTTon 05-10-2022 aPTT Coag (Bld) [Time] 42.0 s Critically high 22.3-36.2 [facility] Comment on above: Performed By: #### P TT, PT #### [facility] [address] [place] [address] Dr. Shine Del Rosario US JAC DOP [...] PAWAN GEORGE Date: 2022-05-10 13:11 Normal [facility] BNPon 01-19-2022 Natriuretic peptide B (Bld) [Mass/Vol] 175.0 pg/mL Normal <=900.0 [facility] Comment on above: Performed By: #### C MP, BNP, HSTROPN #### [facility] [address] [place] [address] Dr. Shine Del Rosario CBC AUTO DIFFon 01-19-2022 BASO # 0.1 103/ul Normal 0.0-0.1 [facility] Comment on above: Performed By: #### P TT, PT #### [facility] [address] [place] [address] Dr. Shine Del Rosario Basophils/100 WBC (Bld) 0.9 % Normal 0.2-2.0 [facility] Comment on above: Performed By: #### P TT, PT #### [facility] [address] [place] [address] Dr. Shine Del Rosario EO # 0.9 103/ul Critically high 0.0-0.7 [facility] Comment on above: Performed By: #### P TT, PT #### [facility] [address] [place] [address] Dr. Shine Del Rosario Eosinophils/100 WBC (Bld) 10.6 % Critically high 0.9-7.0 [facility] Comment on above: Performed By: #### P TT, PT #### [facility] [address] [place] [address] Dr. Shine Del Rosario Erythrocyte distribution width (RBC) [Ratio] 11.4 % Normal 11.0-15.0 [facility] Comment on above: Performed By: #### P TT, PT #### [facility] [address] [place] [address] Dr. Shine Del Rosario Hematocrit (Bld) [Volume fraction] 36.9 % Normal 36.0-48.0 [facility] Comment on above: Performed By: #### P TT, PT #### [facility] [address] [place] [address] Dr. Shine Del Rosario Hemoglobin (Bld) [Mass/Vol] 12.1 g/dL Normal 12.0-16.0 [facility] Comment on above: Performed By: #### P TT, PT #### [facility] [address] [place] [address] Dr. Shine Del Rosario IG # 0.04 10e3/ul Critically high 0.00-0.03 [facility] Comment on above: Performed By: #### P TT, PT #### [facility] [address] [place] [address] Dr. Shine Del Rosario IG % 0.5 % Normal 0.0-0.5 [facility] Comment on above: Performed By: #### P TT, PT #### [facility] [address] [place] [address] Dr. Shine Del Rosario LYMPH # 1.7 103/ul Normal 1.2-3.8 [facility] Comment on above: Performed By: #### P TT, PT #### [facility] [address] [place] [address] Dr. Shine Del Rosario Lymphocytes/100 WBC (Bld) 20.4 % Critically low 20.5-60.0 [facility] Comment on above: Performed By: #### P TT, PT #### [facility] [address] [place] [address] Dr. Shine Del Rosario MANUAL DIFF REQ NO Normal [facility] Comment on above: Performed By: #### P TT, PT #### [facility] [address] [place] [address] Dr. Shine Del Rosario MCH (RBC) [Entitic mass] 32.8 pg Normal 26.7-34.0 [facility] Comment on above: Performed By: #### P TT, PT #### [facility] [address] [place] [address] Dr. Shine Del Rosario MCHC (RBC) [Mass/Vol] 32.8 g/dL Normal 29.9-35.2 [facility] Comment on above: Performed By: #### P TT, PT #### [facility] [address] [place] [address] Dr. Shine Del Rosario MCV (RBC) [Entitic vol] 100.0 fL Critically high 81.0-99.0 [facility] Comment on above: Performed By: #### P TT, PT #### [facility] [address] [place] [address] Dr. Shine Del Rosario MONO # 0.8 103/ul Normal 0.3-0.8 [facility] Comment on above: Performed By: #### P TT, PT #### [facility] [address] [place] [address] Dr. Shine Del Rosario Monocytes/100 WBC (Bld) 9.6 % Normal 1.7-12.0 [facility] Comment on above: Performed By: #### P TT, PT #### [facility] [address] [place] [address] Dr. Shine Del Rosario NEUT # 4.8 103/ul Normal 1.4-6.5 [facility] Comment on above: Performed By: #### P TT, PT #### [facility] [address] [place] [address] Dr. Shine Del Rosario Neutrophils/100 WBC (Bld) 58.0 % Normal 43.0-75.0 [facility] Comment on above: Performed By: #### P TT, PT #### [facility] [address] [address] [address] Shine Del Rosario Platelet mean volume (Bld) [Entitic vol] 8.9 fL Critically low 9.5-13.5 [facility] Comment on above: Performed By: #### P TT, PT #### [facility] [address] [address] [address] Shine Del Rosario PLT 336 103/ul Normal 150-450 [facility] Comment on above: Performed By: #### P TT, PT #### [facility] [address] [address] [address] Shine Del Rosario RBC 3.69 106/ul Critically low 4.20-5.40 [facility] Comment on above: Performed By: #### P TT, PT #### [facility] [address] [place] [address] Dr. Shine Del Rosario WBC 8.2 103/ul Normal 4.0-11.0 [facility] Comment on above: Performed By: #### P TT, PT #### [facility] [address] [address] [address] Shine Del Rosario Covid-19 PCR ([facility])on SARS-CoV-2 (COVID-19) RNA LYLA+probe Ql (Unsp spec) Not detected Normal NOT DETECTED [facility] Comment on above: Result Comment: When [...] for this test is supported by the [employer]'s declaration that [...] used). Performed By: #### P HVEN #### [facility] [address] [place] [address] Dr. Shine Del Rosario LACTATE/LACTIC ACIDon 2021 Lactate [Moles/Vol] 0.9 mmol/L Normal 0.4-1.9 [facility] Comment on above: Performed By: #### P TT, PT #### [facility] [address] [place] [address] Dr. Shine Del Rosario PH VENOUS BLOODon 01-19-2022 PCO2 VENOUS 43.6 mmHg Normal 40.0-52.0 [facility] Comment on above: Performed By: #### P HVEN #### [facility] [address] [place] [address] Dr. Shine Del Rosario pH VENOUS 7.360 Normal 7.330-7.43 0 [facility] Comment on above: Performed By: #### P HVEN #### [facility] [address] [place] [address] Dr. Shine Del Rosario PROF 14(COMP METB)on 022 Albumin [Mass/Vol] 3.3 g/dL Critically low 3.4-5.0 [facility] Comment on above: Performed By: #### C MP, BNP, HSTROPN #### [facility] [address] [place] [address] Dr. Shine Del Rosario Albumin/Globulin [Mass ratio] 0.8 {ratio} Normal [facility] Comment on above: Performed By: #### C MP, BNP, HSTROPN #### [facility] [address] [place] [address] Dr. Shine Del Rosario ALP [Catalytic activity/Vol] 158 U/L Critically high 46-116 [facility] Comment on above: Performed By: #### C MP, BNP, HSTROPN #### [facility] [address] [place] [address] Dr. Shine Del Rosario ALT [Catalytic activity/Vol] 95 U/L Critically high 14-59 [facility] Comment on above: Performed By: #### C MP, BNP, HSTROPN #### [facility] [address] [address] [address] Shine Del Rosario Anion gap [Moles/Vol] 10.7 mmol/L Normal [facility] Comment on above: Performed By: #### C MP, BNP, HSTROPN #### [facility] [address] [place] [address] Dr. Shine Del Rosario AST [Catalytic activity/Vol] 118 U/L Critically high 15-37 [facility] Comment on above: Performed By: #### C MP, BNP, HSTROPN #### [facility] [address] [place] [address] Dr. Shine Del Rosario Bilirubin [Mass/Vol] 0.8 mg/dL Normal 0.2-1.0 [facility] Comment on above: Performed By: #### C MP, BNP, HSTROPN #### [facility] [address] [place] [address] Dr. Shine Del Rosario Calcium [Mass/Vol] 8.8 mg/dL Normal 8.5-10.1 [facility] Comment on above: Performed By: #### C MP, BNP, HSTROPN #### [facility] [address] [place] [address] Dr. Shine Del Rosario Chloride [Moles/Vol] 96 mmol/L Critically low 98-107 [facility] Comment on above: Performed By: #### C MP, BNP, HSTROPN #### [facility] [address] [place] [address] Dr. Shine Del Rosario CO2 [Moles/Vol] 24.3 mmol/L Normal 21.0-32.0 [facility] Comment on above: Performed By: #### C MP, BNP, HSTROPN #### [facility] [address] [place] [address] Dr. Shine Del Rosario Creatinine [Mass/Vol] 0.69 mg/dL Normal 0.55-1.02 [facility] Comment on above: Performed By: #### C MP, BNP, HSTROPN #### [facility] [address] [address] [address] Shine Del Rosario EGFR-AF GUINEAN >60 Normal >=60 [facility] Comment on above: Performed By: #### C MP, BNP, HSTROPN #### [facility] [address] [address] [address] Shine Del Rosario EGFR-NON AF GUINEAN >60 Normal >=60 [facility] Comment on above: Performed By: #### C MP, BNP, HSTROPN #### [facility] [address] [address] [address] Shine Del Rosario Globulin (S) [Mass/Vol] 4.1 g/dL Normal [facility] Comment on above: Performed By: #### C MP, BNP, HSTROPN #### [facility] [address] [address] [address] Shine Del Rosario Glucose [Mass/Vol] 87 mg/dL Normal 74-106 [facility] Comment on above: Performed By: #### C MP, BNP, HSTROPN #### [facility] [address] [address] [address] Shine Del Rosario Potassium [Moles/Vol] 4.0 mmol/L Normal 3.5-5.1 [facility] Comment on above: Performed By: #### C MP, BNP, HSTROPN #### [facility] [address] [address] [address] Shine Del Rosario Protein [Mass/Vol] 7.4 g/dL Normal 6.4-8.2 [facility] Comment on above: Performed By: #### C MP, BNP, HSTROPN #### [facility] [address] [address] [address] Shine Del Rosario Sodium [Moles/Vol] 127 mmol/L Critically low 136-145 Th [facility] Comment on above: Performed By: #### C MP, BNP, HSTROPN #### [facility] [address] [address] [address] Shine Del Rosario Urea nitrogen [Mass/Vol] 4.0 mg/dL Critically low 7.0-18.0 [facility] Comment on above: Performed By: #### C MP, BNP, HSTROPN #### [facility] [address] [place] [address] Dr. Shine Del Rosario Urea nitrogen/Creatinine [Mass ratio] 5.8 mg/mg Normal [facility] Comment on above: Performed By: #### C MP, BNP, HSTROPN #### [facility] [address] [place] [address] Dr. Shine Del Rosario PROTIMEon 01-19-2022 INR Coag (PPP) [Relative time] 0.97 {INR} Normal [facility] Comment on above: Performed By: #### B MP #### [facility] [address] [place] [address] Dr. Shine Del Rosario INR GUIDELINES SEE BELOW Normal [facility] Comment on above: Result Comment: JUDY RED INR: 2.0 - 3.0 CONDITIONS NOT LISTED BELOW 2.5 - 3.5 FOR PROSTHETIC HEART VALVE REPLACEMENT 2.5 - 3.5 RECURRENT THROMBOSIS Performed By: #### B MP #### [facility] [address] [place] [address] Dr. Shine Del Rosario PT Coag (PPP) [Time] 10.5 s Normal 9.0-11.6 [facility] Comment on above: Performed By: #### B MP #### [facility] [address] [place] [address] Dr. Shine Del Rosario PTTon 01-19-2022 aPTT Coag (Bld) [Time] 45.8 s Critically high 22.3-36.2 [facility] Comment on above: Performed By: #### B MP #### [facility] [address] [place] [address] Dr. Shine Del Rosario TROPONIN, HIGH SENSITIVITYon 01-19-2022 HSTROP 11.4 pg/mL Normal 4.0-51.3 [facility] Comment on above: Result Comment: CUT- OFF POINTS HAVE BEEN ESTABLISHED BASED ON THE FOURTH UNIVERSAL DEFINITIONS OF MYOCARDIAL INFARCTION. THE UPPER REFERENCE LIMIT (URL) OF TROPONIN, DEFINED THE 99TH PERCENTILE OF cTnI DISTRIBUTION IN A REFERENCE POPULATION, HAS BEEN CONFIRMED THE DECISION THRESHOLD FOR VT DIAGNOSIS. Performed By: #### P HVEN #### [facility] [address] [address] [address] Shine Del Rosario XR CHEST 1 [...] PAWAN BRUNNER Date: 2022-01-19 19:05 Normal [facility] CBC AUTO DIFFon 10-18-2021 BASO # 0.0 103/ul Normal 0.0-0.1 [facility] Comment on above: Performed By: #### L IVER #### [facility] [address] [address] [address] Shine Del Rosario Basophils/100 WBC (Bld) 0.7 % Normal 0.2-2.0 [facility] Comment on above: Performed By: #### L IVER #### [facility] [address] [address] [address] Shine Del Rosario EO # 0.1 103/ul Normal 0.0-0.7 [facility] Comment on above: Performed By: #### L IVER #### [facility] [address] [address] [address] Shine Del Rosario Eosinophils/100 WBC (Bld) 1.1 % Normal 0.9-7.0 [facility] Comment on above: Performed By: #### L IVER #### [facility] [address] [address] [address] Shine Del Rosario Erythrocyte distribution width (RBC) [Ratio] 16.3 % Critically high 11.0-15.0 [facility] Comment on above: Performed By: #### L IVER #### [facility] [address] [address] [address] Shine Del Rosario Hematocrit (Bld) [Volume fraction] 34.0 % Critically low 36.0-48.0 [facility] Comment on above: Performed By: #### L IVER #### [facility] [address] [place] [address] Dr. Shine Del Rosario Hemoglobin (Bld) [Mass/Vol] 10.8 g/dL Critically low 12.0-16.0 [facility] Comment on above: Performed By: #### L IVER #### [facility] [address] [place] [address] Dr. Shine Del Rosario IG # 0.06 10e3/ul Critically high 0.00-0.03 [facility] Comment on above: Performed By: #### L IVER #### [facility] [address] [place] [address] Dr. Shine Del Rosario IG % 1.1 % Critically high 0.0-0.5 [facility] Comment on above: Performed By: #### L IVER #### [facility] [address] [place] [address] Dr. Shine Del Rosario LYMPH # 1.1 103/ul Critically low 1.2-3.8 [facility] Comment on above: Performed By: #### L IVER #### [facility] [address] [place] [address] Dr. Shine Del Rosario Lymphocytes/100 WBC (Bld) 19.5 % Critically low 20.5-60.0 [facility] Comment on above: Performed By: #### L IVER #### [facility] [address] [place] [address] Dr. Shine Del Rosario MANUAL DIFF REQ NO Normal [facility] Comment on above: Performed By: #### L IVER #### [facility] [address] [place] [address] Dr. Shine Del Rosario MCH (RBC) [Entitic mass] 32.1 pg Normal 26.7-34.0 [facility] Comment on above: Performed By: #### L IVER #### [facility] [address] [place] [address] Dr. Shine Del Rosario MCHC (RBC) [Mass/Vol] 31.8 g/dL Normal 29.9-35.2 [facility] Comment on above: Performed By: #### L IVER #### [facility] [address] [place] [address] Dr. Shine Del Rosario MCV (RBC) [Entitic vol] 101.2 fL Critically high 81.0-99.0 [facility] Comment on above: Performed By: #### L IVER #### [facility] [address] [place] [address] Dr. Shine Del Rosario MONO # 0.4 103/ul Normal 0.3-0.8 [facility] Comment on above: Performed By: #### L IVER #### [facility] [address] [place] [address] Dr. Shine Del Rosario Monocytes/100 WBC (Bld) 6.8 % Normal 1.7-12.0 [facility] Comment on above: Performed By: #### L IVER #### [facility] [address] [place] [address] Dr. Shine Del Rosario NEUT # 4.0 103/ul Normal 1.4-6.5 [facility] Comment on above: Performed By: #### L IVER #### [facility] [address] [place] [address] Dr. Shine Del Rosario Neutrophils/100 WBC (Bld) 70.8 % Normal 43.0-75.0 [facility] Comment on above: Performed By: #### L IVER #### [facility] [address] [place] [address] Dr. Shine Del Rosario Platelet mean volume (Bld) [Entitic vol] 8.5 fL Critically low 9.5-13.5 [facility] Comment on above: Performed By: #### L IVER #### [facility] [address] [place] [address] Dr. Shine Del Rosario PLT 307 103/ul Normal 150-450 [facility] Comment on above: Performed By: #### L IVER #### [facility] [address] [place] [address] Dr. Shine Del Rosario RBC 3.36 106/ul Critically low 4.20-5.40 [facility] Comment on above: Performed By: #### L IVER #### [facility] [address] [place] [address] Dr. Shine Del Rosario WBC 5.6 103/ul Normal 4.0-11.0 [facility] Comment on above: Performed By: #### L IVER #### [facility] [address] [place] [address] Dr. Shine Del Rosario FERRITINon 10-18-2021 Ferritin [Mass/Vol] 2763.0 ng/mL Critically high 8.0-252.0 [facility] Comment on above: Performed By: #### F ERR #### [facility] [address] [place] [address] Dr. Shine Del Rosario PROF 14(COMP METB)on 022 Albumin [Mass/Vol] 2.9 g/dL Critically low 3.4-5.0 [facility] Comment on above: Performed By: #### B MP #### [facility] [address] [place] [address] Dr. Shine Del Rosario Albumin/Globulin [Mass ratio] 0.7 {ratio} Normal [facility] Comment on above: Performed By: #### B MP #### [facility] [address] [place] [address] Dr. Shine Del Rosario ALP [Catalytic activity/Vol] 209 U/L Critically high 46-116 [facility] Comment on above: Performed By: #### B MP #### [facility] [address] [place] [address] Dr. Shine Del Rosario ALT [Catalytic activity/Vol] 357 U/L Critically high 14-59 [facility] Comment on above: Performed By: #### B MP #### [facility] [address] [place] [address] Dr. Shine Del Rosario Anion gap [Moles/Vol] 11.0 mmol/L Normal [facility] Comment on above: Performed By: #### B MP #### [facility] [address] [place] [address] Dr. Shine Del Rosario AST [Catalytic activity/Vol] 610 U/L Critically high 15-37 [facility] Comment on above: Performed By: #### B MP #### [facility] [address] [address] [address] Shine Del Rosario Bilirubin [Mass/Vol] 0.8 mg/dL Normal 0.2-1.0 [facility] Comment on above: Performed By: #### B MP #### [facility] [address] [address] [address] Shine Del Rosario Calcium [Mass/Vol] 8.5 mg/dL Normal 8.5-10.1 [facility] Comment on above: Performed By: #### B MP #### [facility] [address] [address] [address] Shine Del Rosario Chloride [Moles/Vol] 99 mmol/L Normal 98-107 [facility] Comment on above: Performed By: #### B MP #### [facility] [address] [place] [address] Dr. Shine Del Rosario CO2 [Moles/Vol] 27.2 mmol/L Normal 21.0-32.0 [facility] Comment on above: Performed By: #### B MP #### [facility] [address] [place] [address] Dr. Shine Del Rosario Creatinine [Mass/Vol] 0.68 mg/dL Normal 0.55-1.02 [facility] Comment on above: Performed By: #### B MP #### [facility] [address] [place] [address] Dr. Shine Del Rosario EGFR-AF GUINEAN >60 Normal >=60 [facility] Comment on above: Performed By: #### B MP #### [facility] [address] [address] [address] Shine Del Rosario EGFR-NON AF GUINEAN >60 Normal >=60 [facility] Comment on above: Performed By: #### B MP #### [facility] [address] [address] [address] Shine Del Rosario Globulin (S) [Mass/Vol] 4.3 g/dL Normal [facility] Comment on above: Performed By: #### B MP #### [facility] [address] [address] [address] Shine Del Rosario Glucose [Mass/Vol] 118 mg/dL Critically high 74-106 T [facility] Comment on above: Performed By: #### B MP #### [facility] [address] [address] [address] Shine Del Rosario Potassium [Moles/Vol] 3.2 mmol/L Critically low 3.5-5.1 [facility] Comment on above: Performed By: #### B MP #### [facility] [address] [address] [address] Shine Del Rosario Protein [Mass/Vol] 7.2 g/dL Normal 6.4-8.2 [facility] Comment on above: Performed By: #### B MP #### [facility] [address] [address] [address] Shine Del Rosario Sodium [Moles/Vol] 134 mmol/L Critically low 136-145 Th [facility] Comment on above: Performed By: #### B MP #### [facility] [address] [address] [address] Shine Del Rosario Urea nitrogen [Mass/Vol] 5.0 mg/dL Critically low 7.0-18.0 [facility] Comment on above: Performed By: #### B MP #### [facility] [address] [address] [address] Shine Del Rosario Urea nitrogen/Creatinine [Mass ratio] 7.4 mg/mg Normal [facility] Comment on above: Performed By: #### B MP #### [facility] [address] [address] [address] Shine Del Rosario CBC AUTO DIFFon 09-27-2021 BASO # 0.1 103/ul Normal 0.0-0.1 [facility] Comment on above: Performed By: #### L IVER #### [facility] [address] [address] [address] Shine Del Rosario Basophils/100 WBC (Bld) 1.1 % Normal 0.2-2.0 [facility] Comment on above: Performed By: #### L IVNILAM #### [facility] [address] [place] [address] Dr. Shine Del Rosario EO # 0.2 103/ul Normal 0.0-0.7 [facility] Comment on above: Performed By: #### L IVER #### [facility] [address] [place] [address] Dr. Shine Del Rosario Eosinophils/100 WBC (Bld) 2.8 % Normal 0.9-7.0 [facility] Comment on above: Performed By: #### L IVER #### [facility] [address] [place] [address] Dr. Shine Del Rosario Erythrocyte distribution width (RBC) [Ratio] 12.7 % Normal 11.0-15.0 [facility] Comment on above: Performed By: #### L IVER #### [facility] [address] [place] [address] Dr. Shine Del Rosario Hematocrit (Bld) [Volume fraction] 30.0 % Critically low 36.0-48.0 [facility] Comment on above: Performed By: #### L IVER #### [facility] [address] [place] [address] Dr. Shine Del Rosario Hemoglobin (Bld) [Mass/Vol] 9.9 g/dL Critically low 12.0-16.0 [facility] Comment on above: Performed By: #### L IVER #### [facility] [address] [place] [address] Dr. Shine Del Rosario IG # 0.08 10e3/ul Critically high 0.00-0.03 [facility] Comment on above: Performed By: #### L IVER #### [facility] [address] [place] [address] Dr. Shine Del Rosario IG % 1.5 % Critically high 0.0-0.5 [facility] Comment on above: Performed By: #### L IVER #### [facility] [address] [place] [address] Dr. Shine Del Rosario LYMPH # 1.5 103/ul Normal 1.2-3.8 [facility] Comment on above: Performed By: #### L IVER #### [facility] [address] [place] [address] Dr. Shine Del oRsario Lymphocytes/100 WBC (Bld) 29.0 % Normal 20.5-60.0 [facility] Comment on above: Performed By: #### L IVER #### [facility] [address] [place] [address] Dr. Shine Del Rosario MANUAL DIFF REQ NO Normal [facility] Comment on above: Performed By: #### L IVER #### [facility] [address] [place] [address] Dr. Shine Del Rosario MCH (RBC) [Entitic mass] 31.3 pg Normal 26.7-34.0 [facility] Comment on above: Performed By: #### L IVER #### [facility] [address] [place] [address] Dr. Shine Del Rosario MCHC (RBC) [Mass/Vol] 33.0 g/dL Normal 29.9-35.2 [facility] Comment on above: Performed By: #### L IVER #### [facility] [address] [place] [address] Dr. Shine Del Rosario MCV (RBC) [Entitic vol] 94.9 fL Normal 81.0-99.0 [facility] Comment on above: Performed By: #### L IVER #### [facility] [address] [place] [address] Dr. Shine Del Rosario MONO # 0.8 103/ul Normal 0.3-0.8 [facility] Comment on above: Performed By: #### L IVER #### [facility] [address] [place] [address] Dr. Shine Del Rosario Monocytes/100 WBC (Bld) 15.6 % Critically high 1.7-12.0 [facility] Comment on above: Performed By: #### L IVER #### [facility] [address] [place] [address] Dr. Shine Del Rosario NEUT # 2.7 103/ul Normal 1.4-6.5 [facility] Comment on above: Performed By: #### L IVER #### [facility] [address] [address] [address] Shine Del Rosario Neutrophils/100 WBC (Bld) 50.0 % Normal 43.0-75.0 [facility] Comment on above: Performed By: #### L IVER #### [facility] [address] [address] [address] Shine Del Rosario Platelet mean volume (Bld) [Entitic vol] 8.5 fL Critically low 9.5-13.5 [facility] Comment on above: Performed By: #### L IVER #### [facility] [address] [address] [address] Shine Del Rosario PLT 583 103/ul Critically high 150-450 [facility] Comment on above: Performed By: #### L IVER #### [facility] [address] [place] [address] Dr. Shine Del Rosario RBC 3.16 106/ul Critically low 4.20-5.40 [facility] Comment on above: Performed By: #### L IVER #### [facility] [address] [address] [address] Shine Del Rosario WBC 5.3 103/ul Normal 4.0-11.0 [facility] Comment on above: Performed By: #### L IVER #### [facility] [address] [place] [address] Dr. Shine Del Rosario FERRITINon 09-27-2021 Ferritin [Mass/Vol] 1664.0 ng/mL Critically high 8.0-252.0 [facility] Comment on above: Performed By: #### B MP #### [facility] [address] [place] [address] Dr. Shine Del Rosario PROF CHEM 8 (BAS METB)on Anion gap [Moles/Vol] 12.4 mmol/L Normal [facility] Comment on above: Performed By: #### B MP #### [facility] [address] [place] [address] Dr. Shine Del Rosario Calcium [Mass/Vol] 9.0 mg/dL Normal 8.5-10.1 [facility] Comment on above: Performed By: #### B MP #### [facility] [address] [address] [address] Shine Del Rosario Chloride [Moles/Vol] 94 mmol/L Critically low 98-107 [facility] Comment on above: Performed By: #### B MP #### [facility] [address] [address] [address] Shine Del Rosario CO2 [Moles/Vol] 26.2 mmol/L Normal 21.0-32.0 [facility] Comment on above: Performed By: #### B MP #### [facility] [address] [address] [address] Shine Del Rosario Creatinine [Mass/Vol] 0.65 mg/dL Normal 0.55-1.02 [facility] Comment on above: Performed By: #### B MP #### [facility] [address] [place] [address] Dr. Shine Del Rosario EGFR-AF GUINEAN >60 Normal >=60 [facility] Comment on above: Performed By: #### B MP #### [facility] [address] [address] [address] Shine Del Rosario EGFR-NON AF GUINEAN >60 Normal >=60 [facility] Comment on above: Performed By: #### B MP #### [facility] [address] [place] [address] Dr. Shine Del Rosario Glucose [Mass/Vol] 98 mg/dL Normal 74-106 [facility] Comment on above: Performed By: #### B MP #### [facility] [address] [address] [address] Shine Del Rosario Potassium [Moles/Vol] 4.6 mmol/L Normal 3.5-5.1 [facility] Comment on above: Performed By: #### B MP #### [facility] [address] [address] [address] Shine Del Rosario Sodium [Moles/Vol] 128 mmol/L Critically low 136-145 Th [facility] Comment on above: Performed By: #### B MP #### [facility] [address] [address] [address] Shine Del Rosario Urea nitrogen [Mass/Vol] 7.0 mg/dL Normal 7.0-18.0 [facility] Comment on above: Performed By: #### B MP #### [facility] [address] [address] [address] Shine Del Rosario Urea nitrogen/Creatinine [Mass ratio] 10.8 mg/mg Normal [facility] Comment on above: Performed By: #### B MP #### [facility] [address] [place] [address] Dr. Shine Del Rosario XR CHEST 2 [...] BOB TATUM Date: 2021-09-27 20:21 Normal [facility] CBC AUTO DIFFon 09-23-2021 BASO # 0.1 103/ul Normal 0.0-0.1 [facility] Comment on above: Performed By: #### P TT, PT #### [facility] [address] [place] [address] Dr. Shine Del Rosario Basophils/100 WBC (Bld) 0.8 % Normal 0.2-2.0 [facility] Comment on above: Performed By: #### P TT, PT #### [facility] [address] [place] [address] Dr. Shine Del Rosario EO # 0.2 103/ul Normal 0.0-0.7 [facility] Comment on above: Performed By: #### P TT, PT #### [facility] [address] [place] [address] Dr. Shine Del Rosario Eosinophils/100 WBC (Bld) 3.2 % Normal 0.9-7.0 [facility] Comment on above: Performed By: #### P TT, PT #### [facility] [address] [place] [address] Dr. Shine Del Rosario Erythrocyte distribution width (RBC) [Ratio] 12.4 % Normal 11.0-15.0 [facility] Comment on above: Performed By: #### P TT, PT #### [facility] [address] [place] [address] Dr. Shine Del Rosario Hematocrit (Bld) [Volume fraction] 28.8 % Critically low 36.0-48.0 [facility] Comment on above: Performed By: #### P TT, PT #### [facility] [address] [place] [address] Dr. Shine Del Rosario Hemoglobin (Bld) [Mass/Vol] 9.8 g/dL Critically low 12.0-16.0 [facility] Comment on above: Performed By: #### P TT, PT #### [facility] [address] [place] [address] Dr. Shine Del Rosario IG # 0.03 10e3/ul Normal 0.00-0.03 [facility] Comment on above: Performed By: #### P TT, PT #### [facility] [address] [place] [address] Dr. Shine Del Rosario IG % 0.4 % Normal 0.0-0.5 [facility] Comment on above: Performed By: #### P TT, PT #### [facility] [address] [place] [address] Dr. Shine Del Rosario LYMPH # 1.4 103/ul Normal 1.2-3.8 [facility] Comment on above: Performed By: #### P TT, PT #### [facility] [address] [place] [address] Dr. Shine Del Rosario Lymphocytes/100 WBC (Bld) 19.5 % Critically low 20.5-60.0 [facility] Comment on above: Performed By: #### P TT, PT #### [facility] [address] [place] [address] Dr. Shine Del Rosario MANUAL DIFF REQ NO Normal [facility] Comment on above: Performed By: #### P TT, PT #### [facility] [address] [place] [address] Dr. Shine Del Rosario MCH (RBC) [Entitic mass] 32.0 pg Normal 26.7-34.0 [facility] Comment on above: Performed By: #### P TT, PT #### [facility] [address] [place] [address] Dr. Shine Del Rosario MCHC (RBC) [Mass/Vol] 34.0 g/dL Normal 29.9-35.2 [facility] Comment on above: Performed By: #### P TT, PT #### [facility] [address] [place] [address] Dr. Shine Del Rosario MCV (RBC) [Entitic vol] 94.1 fL Normal 81.0-99.0 [facility] Comment on above: Performed By: #### P TT, PT #### [facility] [address] [place] [address] Dr. Shine Del Rosario MONO # 0.8 103/ul Normal 0.3-0.8 [facility] Comment on above: Performed By: #### P TT, PT #### [facility] [address] [place] [address] Dr. Shine Del Rosario Monocytes/100 WBC (Bld) 10.9 % Normal 1.7-12.0 [facility] Comment on above: Performed By: #### P TT, PT #### [facility] [address] [place] [address] Dr. Shine Del Rosario NEUT # 4.7 103/ul Normal 1.4-6.5 [facility] Comment on above: Performed By: #### P TT, PT #### [facility] [address] [place] [address] Dr. Shine Del Rosario Neutrophils/100 WBC (Bld) 65.2 % Normal 43.0-75.0 [facility] Comment on above: Performed By: #### P TT, PT #### [facility] [address] [address] [address] Shine Del Rosario Platelet mean volume (Bld) [Entitic vol] 8.8 fL Critically low 9.5-13.5 [facility] Comment on above: Performed By: #### P TT, PT #### [facility] [address] [place] [address] Dr. Shine Del Rosario PLT 613 103/ul Critically high 150-450 [facility] Comment on above: Performed By: #### P TT, PT #### [facility] [address] [place] [address] Dr. Shine Del Rosario RBC 3.06 106/ul Critically low 4.20-5.40 [facility] Comment on above: Performed By: #### P TT, PT #### [facility] [address] [place] [address] Dr. Shine Del Rosario WBC 7.1 103/ul Normal 4.0-11.0 [facility] Comment on above: Performed By: #### P TT, PT #### [facility] [address] [place] [address] Dr. Shine Del Rosario PROF CHEM 8 (BAS METB)on Anion gap [Moles/Vol] 13.6 mmol/L Normal [facility] Comment on above: Performed By: #### P TT, PT #### [facility] [address] [place] [address] Dr. Shine Del Rosario Calcium [Mass/Vol] 9.0 mg/dL Normal 8.5-10.1 [facility] Comment on above: Performed By: #### P TT, PT #### [facility] [address] [place] [address] Dr. Shine Del Rosario Chloride [Moles/Vol] 89 mmol/L Critically low 98-107 [facility] Comment on above: Performed By: #### P TT, PT #### [facility] [address] [place] [address] Dr. Shine Del Rosario CO2 [Moles/Vol] 23.6 mmol/L Normal 21.0-32.0 [facility] Comment on above: Performed By: #### P TT, PT #### [facility] [address] [address] [address] Shine Del Rosario Creatinine [Mass/Vol] 0.63 mg/dL Normal 0.55-1.02 [facility] Comment on above: Performed By: #### P TT, PT #### [facility] [address] [address] [address] Shine Del Rosario EGFR-AF GUINEAN >60 Normal >=60 [facility] Comment on above: Performed By: #### P TT, PT #### [facility] [address] [address] [address] Shine Del Rosario EGFR-NON AF GUINEAN >60 Normal >=60 [facility] Comment on above: Performed By: #### P TT, PT #### [facility] [address] [address] [address] Shine Del Rosario Glucose [Mass/Vol] 116 mg/dL Critically high 74-106 [facility] Comment on above: Performed By: #### P TT, PT #### [facility] [address] [address] [address] Shine Del Rosario Potassium [Moles/Vol] 3.2 mmol/L Critically low 3.5-5.1 [facility] Comment on above: Performed By: #### P TT, PT #### [facility] [address] [address] [address] Shine Del Rosario Sodium [Moles/Vol] 123 mmol/L Critically low 136-145 [facility] Comment on above: Performed By: #### P TT, PT #### [facility] [address] [address] [address] Shine Del Rosario Urea nitrogen [Mass/Vol] 7.0 mg/dL Normal 7.0-18.0 [facility] Comment on above: Performed By: #### P TT, PT #### [facility] [address] [address] [address] Shine Del Rosario Urea nitrogen/Creatinine [Mass ratio] 11.1 mg/mg Normal [facility] Comment on above: Performed By: #### P TT, PT #### [facility] [address] [place], [place] [address] Dr. Shine Del Rosario [id number] PHENOTYP INGon 09-12-2021 [id number] , Serum 239 mg/dL Critically high 101-187 [facility] Comment on above: Result Comment: Perf ormed at: CB Performed By: #### P TT, PT #### [facility] [id number] Shine Del Rosario Phenotype (PI) MM Normal [facility] Comment on above: Result Comment: Phen [...] Performed By: #### P TT, PT #### [facility] [address] [place] [id number] STROKE HEAD [...] HOLLI FRANK Date: 2021-09-12 00:13 Normal [facility] CBC AUTO DIFFon 09-11-2021 BASO # 0.1 103/ul Normal 0.0-0.1 [facility] Comment on above: Performed By: #### B MP #### [facility] [address] [address] [address] Shine Del Rosario Basophils/100 WBC (Bld) 0.8 % Normal 0.2-2.0 [facility] Comment on above: Performed By: #### B MP #### [facility] [address] [address] [address] Shine Del Rosario EO # 0.6 103/ul Normal 0.0-0.7 [facility] Comment on above: Performed By: #### B MP #### [facility] [address] [address] [address] Shine Del Rosario Eosinophils/100 WBC (Bld) 4.9 % Normal 0.9-7.0 [facility] Comment on above: Performed By: #### B MP #### [facility] [address] [address] [address] Shine Del Rosario Erythrocyte distribution width (RBC) [Ratio] 13.9 % Normal 11.0-15.0 [facility] Comment on above: Performed By: #### B MP #### [facility] [address] [address] [address] Shine Del Rosario Hematocrit (Bld) [Volume fraction] 25.6 % Critically low 36.0-48.0 [facility] Comment on above: Performed By: #### B MP #### [facility] [address] [address] [address] Shine Del Rosario Hemoglobin (Bld) [Mass/Vol] 7.8 g/dL Critically low 12.0-16.0 [facility] Comment on above: Performed By: #### B MP #### [facility] [address] [place] [address] Dr. Shine Del Rosario IG # 0.67 10e3/ul Critically high 0.00-0.03 [facility] Comment on above: Performed By: #### B MP #### [facility] [address] [place] [address] Dr. Shine Del Rosario IG % 5.7 % Critically high 0.0-0.5 [facility] Comment on above: Performed By: #### B MP #### [facility] [address] [place] [address] Dr. Shine Del Rosario LYMPH # 1.6 103/ul Normal 1.2-3.8 [facility] Comment on above: Performed By: #### B MP #### [facility] [address] [place] [address] Dr. Shine Del Rosario Lymphocytes/100 WBC (Bld) 14.0 % Critically low 20.5-60.0 [facility] Comment on above: Performed By: #### B MP #### [facility] [address] [place] [address] Dr. Shine Del Rosario MANUAL DIFF REQ NO Normal [facility] Comment on above: Performed By: #### B MP #### [facility] [address] [place] [address] Dr. Shine Del Rosario MCH (RBC) [Entitic mass] 32.1 pg Normal 26.7-34.0 [facility] Comment on above: Performed By: #### B MP #### [facility] [address] [place] [address] Dr. Shine Del Rosario MCHC (RBC) [Mass/Vol] 30.5 g/dL Normal 29.9-35.2 [facility] Comment on above: Performed By: #### B MP #### [facility] [address] [place] [address] Dr. Shine Del Rosario MCV (RBC) [Entitic vol] 105.3 fL Critically high 81.0-99.0 [facility] Comment on above: Performed By: #### B MP #### [facility] [address] [address] [address] Shine Del Rosario MONO # 1.3 103/ul Critically high 0.3-0.8 [facility] Comment on above: Performed By: #### B MP #### [facility] [address] [address] [address] Shine Del Rosario Monocytes/100 WBC (Bld) 11.1 % Normal 1.7-12.0 [facility] Comment on above: Performed By: #### B MP #### [facility] [address] [place] [address] Dr. Shine Del Rosario NEUT # 7.5 103/ul Critically high 1.4-6.5 [facility] Comment on above: Performed By: #### B MP #### [facility] [address] [place] [address] Dr. Shine Del Rosario Neutrophils/100 WBC (Bld) 63.5 % Normal 43.0-75.0 [facility] Comment on above: Performed By: #### B MP #### [facility] [address] [place] [address] Dr. Shine Del Rosario Platelet mean volume (Bld) [Entitic vol] 8.5 fL Critically low 9.5-13.5 [facility] Comment on above: Performed By: #### B MP #### [facility] [address] [place] [address] Dr. Shine Del Rosario PLT 528 103/ul Critically high 150-450 [facility] Comment on above: Performed By: #### B MP #### [facility] [address] [place] [address] Dr. Shine Del Rosario RBC 2.43 106/ul Critically low 4.20-5.40 [facility] Comment on above: Performed By: #### B MP #### [facility] [address] [place] [address] Dr. Shine Del Rosario WBC 11.7 103/ul Critically high 4.0-11.0 [facility] Comment on above: Performed By: #### B MP #### [facility] [address] [address] [address] Shine Del Rosario PROF CHEM 8 (BAS METB)on Anion gap [Moles/Vol] 12.7 mmol/L Normal [facility] Comment on above: Performed By: #### P HVEN #### [facility] [address] [address] [address] Shine Del Rosario Calcium [Mass/Vol] 8.4 mg/dL Critically low 8.5-10.1 [facility] Comment on above: Performed By: #### P HVEN #### [facility] [address] [address] [address] Shine Del Rosario Chloride [Moles/Vol] 102 mmol/L Normal 98-107 [facility] Comment on above: Performed By: #### P HVEN #### [facility] [address] [place] [address] Dr. Shine Del Rosario CO2 [Moles/Vol] 24.7 mmol/L Normal 21.0-32.0 [facility] Comment on above: Performed By: #### P HVEN #### [facility] [address] [place] [address] Dr. Shine Del Rosario Creatinine [Mass/Vol] 0.58 mg/dL Normal 0.55-1.02 [facility] Comment on above: Performed By: #### P HVEN #### [facility] [address] [place] [address] Dr. Shine Del Rosario EGFR-AF GUINEAN >60 Normal >=60 [facility] Comment on above: Performed By: #### P HVEN #### [facility] [address] [place] [address] Dr. Shine Del Rosario EGFR-NON AF GUINEAN >60 Normal >=60 [facility] Comment on above: Performed By: #### P HVEN #### [facility] [address] [place] [address] Dr. Shine Del Rosario Glucose [Mass/Vol] 95 mg/dL Normal 74-106 [facility] Comment on above: Performed By: #### P HVEN #### [facility] [address] [place] [address] Dr. Shine Del Rosario Potassium [Moles/Vol] 4.4 mmol/L Normal 3.5-5.1 [facility] Comment on above: Performed By: #### P HVEN #### [facility] [address] [address] [address] Shine Del Rosario Sodium [Moles/Vol] 135 mmol/L Critically low 136-145 Th [facility] Comment on above: Performed By: #### P HVEN #### [facility] [address] [address] [address] Shine Del Rosario Urea nitrogen [Mass/Vol] 7.0 mg/dL Normal 7.0-18.0 [facility] Comment on above: Performed By: #### P HVEN #### [facility] [address] [place] [address] Dr. Shine Del Rosario Urea nitrogen/Creatinine [Mass ratio] 12.1 mg/mg Normal [facility] Comment on above: Performed By: #### P HVEN #### [facility] [address] [place] [address] Dr. Shine Del Rosario SPUTUM CULTUREon 09-11-2021 Epithelial cells LM Ql (Urine sed) None seen Normal [facility] Comment on above: Performed By: #### P TT, PT #### [facility] [address] [place] [address] Dr. Shine Del Rosario Gram Stain Evaluation Comment Normal [facility] Comment on above: Result Comment: This specimen is of good quality and is acceptable for routine bacterial culture. Performed By: #### P TT, PT #### [facility] [address] [place] [address] Dr. Shine Del Rosario Lower Respiratory Culture Final report Abnormal [facility] Comment on above: Performed By: #### P TT, PT #### [facility] [address] [place] [address] Dr. Shine Del Rosario Result 1 Comment Abnormal [facility] Comment on above: Result Comment: Mode rate number of gram positive cocci. Performed By: #### P TT, PT #### [facility] [address] [place] [address] Dr. Shine Del Rosario Result Comment: Loza xella (branhamella) catarrhalis Heavy growth Beta lactamase positive. Result 2 Normal [facility] Comment on above: Performed By: #### P TT, PT #### [facility] [address] [place] [address] Dr. Shine Del Rosario Result 2 Comment Normal [facility] Comment on above: Result Comment: Rout ine respiratory cruzito Moderate growth Performed By: #### P TT, PT #### [facility] [address] [place] [address] Dr. Shine Del Rosario Result 3 Normal [facility] Comment on above: Performed By: #### P TT, PT #### [facility] [address] [place] [address] Dr. Shine Del Rosario Result 4 Normal [facility] Comment on above: Performed By: #### P TT, PT #### [facility] [address] [place] [address] Dr. Shine Del Rosario White Blood Cells Moderate Normal [facility] Comment on above: Performed By: #### P TT, PT #### [facility] [address] [place] [address] Dr. Shine Del Rosario CBC AUTO DIFFon 09-10-2021 BASO # 0.1 103/ul Normal 0.0-0.1 [facility] Comment on above: Performed By: #### P TT, PT #### [facility] [address] [place] [address] Dr. Shine Del Rosario Basophils/100 WBC (Bld) 0.9 % Normal 0.2-2.0 [facility] Comment on above: Performed By: #### P TT, PT #### [facility] [address] [place] [address] Dr. Shine Del Rosario EO # 0.5 103/ul Normal 0.0-0.7 [facility] Comment on above: Performed By: #### P TT, PT #### [facility] [address] [place] [address] Dr. Shine Del Rosario Eosinophils/100 WBC (Bld) 4.6 % Normal 0.9-7.0 [facility] Comment on above: Performed By: #### P TT, PT #### [facility] [address] [place] [address] Dr. Shine Del Rosario Erythrocyte distribution width (RBC) [Ratio] 13.8 % Normal 11.0-15.0 [facility] Comment on above: Performed By: #### P TT, PT #### [facility] [address] [place] [address] Dr. Shine Del Rosario Hematocrit (Bld) [Volume fraction] 24.2 % Critically low 36.0-48.0 [facility] Comment on above: Performed By: #### P TT, PT #### [facility] [address] [place] [address] Dr. Shine Del Rosario Hemoglobin (Bld) [Mass/Vol] 7.5 g/dL Critically low 12.0-16.0 [facility] Comment on above: Performed By: #### P TT, PT #### [facility] [address] [place] [address] Dr. Shine Del Rosario IG # 0.60 10e3/ul Critically high 0.00-0.03 [facility] Comment on above: Performed By: #### P TT, PT #### [facility] [address] [place] [address] Dr. Shine Del Rosario IG % 5.4 % Critically high 0.0-0.5 [facility] Comment on above: Performed By: #### P TT, PT #### [facility] [address] [place] [address] Dr. Shine Del Rosario LYMPH # 1.6 103/ul Normal 1.2-3.8 [facility] Comment on above: Performed By: #### P TT, PT #### [facility] [address] [place] [address] Dr. Shine Del Rosario Lymphocytes/100 WBC (Bld) 14.3 % Critically low 20.5-60.0 [facility] Comment on above: Performed By: #### P TT, PT #### [facility] [address] [place] [address] Dr. Shine Del Rosario MANUAL DIFF REQ NO Normal [facility] Comment on above: Performed By: #### P TT, PT #### [facility] [address] [place] [address] Dr. Shine Del Rosario MCH (RBC) [Entitic mass] 32.2 pg Normal 26.7-34.0 [facility] Comment on above: Performed By: #### P TT, PT #### [facility] [address] [place] [address] Dr. Shine Del Rosario MCHC (RBC) [Mass/Vol] 31.0 g/dL Normal 29.9-35.2 [facility] Comment on above: Performed By: #### P TT, PT #### [facility] [address] [place] [address] Dr. Shine Del Rosario MCV (RBC) [Entitic vol] 103.9 fL Critically high 81.0-99.0 [facility] Comment on above: Performed By: #### P TT, PT #### [facility] [address] [place] [address] Dr. Shine Del Rosario MONO # 1.4 103/ul Critically high 0.3-0.8 [facility] Comment on above: Performed By: #### P TT, PT #### [facility] [address] [place] [address] Dr. Shine Del Rosario Monocytes/100 WBC (Bld) 12.3 % Critically high 1.7-12.0 [facility] Comment on above: Performed By: #### P TT, PT #### [facility] [address] [place] [address] Dr. Shine Del Rosario NEUT # 7.0 103/ul Critically high 1.4-6.5 [facility] Comment on above: Performed By: #### P TT, PT #### [facility] [address] [place] [address] Dr. Shine Del Rosario Neutrophils/100 WBC (Bld) 62.5 % Normal 43.0-75.0 [facility] Comment on above: Performed By: #### P TT, PT #### [facility] [address] [place] [address] Dr. Shine Del Rosario Platelet mean volume (Bld) [Entitic vol] 8.7 fL Critically low 9.5-13.5 [facility] Comment on above: Performed By: #### P TT, PT #### [facility] [address] [place] [address] Dr. Shine Del Rosario PLT 476 103/ul Critically high 150-450 [facility] Comment on above: Performed By: #### P TT, PT #### [facility] [address] [place] [address] Dr. Shine Del Rosario RBC 2.33 106/ul Critically low 4.20-5.40 [facility] Comment on above: Performed By: #### P TT, PT #### [facility] [address] [place] [address] Dr. Shine Del Rosario WBC 11.2 103/ul Critically high 4.0-11.0 [facility] Comment on above: Performed By: #### P TT, PT #### [facility] [address] [place] [address] Dr. Shine Del Rosario PREALBUMINon 09-10-2021 Prealbumin [Mass/Vol] 13 mg/dL Normal 10-36 [facility] Comment on above: Performed By: #### B MP #### [facility] [address] [place] [address] Dr. Shine Del Rosario PROF CHEM 8 (BAS METB)on Anion gap [Moles/Vol] 12.7 mmol/L Normal [facility] Comment on above: Performed By: #### L IVER #### [facility] [address] [place] [address] Dr. Shine Del Rosario Calcium [Mass/Vol] 8.2 mg/dL Critically low 8.5-10.1 [facility] Comment on above: Performed By: #### L IVER #### [facility] [address] [place] [address] Dr. Shine Del Rosario Chloride [Moles/Vol] 100 mmol/L Normal 98-107 [facility] Comment on above: Performed By: #### L IVER #### [facility] [address] [address] [address] Shine Del Rosario CO2 [Moles/Vol] 25.8 mmol/L Normal 21.0-32.0 [facility] Comment on above: Performed By: #### L IVER #### [facility] [address] [place] [address] Dr. Shine Del Rosario Creatinine [Mass/Vol] 0.57 mg/dL Normal 0.55-1.02 [facility] Comment on above: Performed By: #### L IVER #### [facility] [address] [place] [address] Dr. Shine Del Rosario EGFR-AF GUINEAN >60 Normal >=60 [facility] Comment on above: Performed By: #### L IVER #### [facility] [address] [place] [address] Dr. Shine Del Rosario EGFR-NON AF GUINEAN >60 Normal >=60 [facility] Comment on above: Performed By: #### L IVER #### [facility] [address] [place] [address] Dr. Shine Del Rosario Glucose [Mass/Vol] 92 mg/dL Normal 74-106 [facility] Comment on above: Performed By: #### L IVER #### [facility] [address] [place] [address] Dr. Shine Del Rosario Potassium [Moles/Vol] 4.5 mmol/L Normal 3.5-5.1 [facility] Comment on above: Performed By: #### L IVER #### [facility] [address] [place] [address] Dr. Shine Del Rosario Sodium [Moles/Vol] 134 mmol/L Critically low 136-145 [facility] Comment on above: Performed By: #### L IVER #### [facility] [address] [place] [address] Dr. Shine Del Rosario Urea nitrogen [Mass/Vol] 10.0 mg/dL Normal 7.0-18.0 [facility] Comment on above: Performed By: #### L IVER #### [facility] [address] [place] [address] Dr. Shine Del Rosario Urea nitrogen/Creatinine [Mass ratio] 17.5 mg/mg Normal [facility] Comment on above: Performed By: #### L AYDEEER #### [facility] [address] [place] [address] Dr. Shine Del Rosario CBC W MANUAL DIFFon 09-10-19 22 ATYPICAL LYMPH # Normal [facility] Comment on above: Performed By: #### B MP #### [facility] [address] [place] [address] Dr. Shine Del Rosario ATYPICAL LYMPH % Normal [facility] Comment on above: Performed By: #### B MP #### [facility] [address] [place] [address] Dr. Shine Del Rosario BAND # Normal 0.0-0.3 [facility] Comment on above: Performed By: #### B MP #### [facility] [address] [place] [address] Dr. Shine Del Rosario BAND % Normal 0-5 [facility] Comment on above: Performed By: #### B MP #### [facility] [address] [place] [address] Dr. Shine Del Rosario BASOM # 0.00 103/ul Normal 0.00-0.10 [facility] Comment on above: Performed By: #### B MP #### [facility] [address] [place] [address] Dr. Shine Del Rosario BASOM % 0.0 % Critically low 0.2-2.0 [facility] Comment on above: Performed By: #### B MP #### [facility] [address] [place] [address] Dr. Shine Del Rosario BLAST # Normal [facility] Comment on above: Performed By: #### B MP #### [facility] [address] [place] [address] Dr. Shien Del Rosario BLAST % Normal [facility] Comment on above: Performed By: #### B MP #### [facility] [address] [place] [address] Dr. Shine Del Rosario CORRECTED WBC Normal 4.0-11.0 [facility] Comment on above: Performed By: #### B MP #### [facility] [address] [address] [address] Shine Del Rosario EOS # 1.34 103/ul Critically high 0.00-0.70 [facility] Comment on above: Performed By: #### B MP #### [facility] [address] [place] [address] Dr. Shine Del Rosario EOS% 11.0 % Critically high 0.9-7.0 [facility] Comment on above: Performed By: #### B MP #### [facility] [address] [place] [address] Dr. Shine Del Rosario HCT 23.6 % Critically low 36.0-48.0 [facility] Comment on above: Performed By: #### B MP #### [facility] [address] [place] [address] Dr. Shine Del Rosario HGB 7.6 g/dl Critically low 12.0-16.0 [facility] Comment on above: Performed By: #### B MP #### [facility] [address] [place] [address] Dr. Shine Del Rosario LYMPHM # 2.32 103/ul Normal 1.20-3.80 [facility] Comment on above: Performed By: #### B MP #### [facility] [address] [place] [address] Dr. Shine Del Rosario LYMPHM% 19.0 % Critically low 20.5-60.0 [facility] Comment on above: Performed By: #### B MP #### [facility] [address] [place] [address] Dr. Shine Del Rosario MCH 32.6 pg Normal 26.7-34.0 [facility] Comment on above: Performed By: #### B MP #### [facility] [address] [place] [address] Dr. Shine Del Rosario MCHC 32.2 g/dl Normal 29.9-35.2 [facility] Comment on above: Performed By: #### B MP #### [facility] [address] [place] [address] Dr. Shine Del Rosario MCV 101.3 fL Critically high 81.0-99.0 [facility] Comment on above: Performed By: #### B MP #### [facility] [address] [place] [address] Dr. Shine Del Rosario METAMYELOCYTE # Normal [facility] Comment on above: Performed By: #### B MP #### [facility] [address] [place] [address] Dr. Shine Del Rosario METAMYELOCYTE % Normal [facility] Comment on above: Performed By: #### B MP #### [facility] [address] [place] [address] Dr. Shine Del Rosario MONOM# 1.83 103/ul Critically high 0.30-0.80 [facility] Comment on above: Performed By: #### B MP #### [facility] [address] [place] [address] Dr. Shine Del Rosario MONOM% 15.0 % Critically high 1.7-12.0 [facility] Comment on above: Performed By: #### B MP #### [facility] [address] [place] [address] Dr. Shine Del Rosario MPV 8.6 fL Critically low 9.5-13.5 [facility] Comment on above: Performed By: #### B MP #### [facility] [address] [place] [address] Dr. Shine Del Rosario MYELOCYTE # Normal [facility] Comment on above: Performed By: #### B MP #### [facility] [address] [place] [address] Dr. Shnie Del Rosario MYELOCYTE % Normal [facility] Comment on above: Performed By: #### B MP #### [facility] [address] [place] [address] Dr. Shine Del Rosario NRBC Normal [facility] Comment on above: Performed By: #### B MP #### [facility] [address] [place] [address] Dr. Shine Del Rosario PLT 434 103/ul Normal 150-450 [facility] Comment on above: Performed By: #### B MP #### [facility] [address] [place] [address] Dr. Shine Del Rosario RBC 2.33 106/ul Critically low 4.20-5.40 [facility] Comment on above: Performed By: #### B MP #### [facility] [address] [place] [address] Dr. Shine Del Rosario RDW 13.3 % Normal 11.0-15.0 [facility] Comment on above: Performed By: #### B MP #### [facility] [address] [place] [address] Dr. Shine Del Rosario SEG # 6.71 103/ul Critically high 1.40-6.50 [facility] Comment on above: Performed By: #### B MP #### [facility] [address] [place] [address] Dr. Shine Del Rosario SEG % 55.0 % Normal 43.0-75.0 [facility] Comment on above: Performed By: #### B MP #### [facility] [address] [place] [address] Dr. Shine Del Rosario WBC 12.2 103/ul Critically high 4.0-11.0 [facility] Comment on above: Performed By: #### B MP #### [facility] [address] [place] [address] Dr. Shine Del Rosario PREALBUMINon 09-09-2021 Procalcitonin WRORD Normal [facility] Comment on above: Result Comment: Test [...] 09-09-2021 Performed By: #### B MP #### [facility] [address] [place] [address] Dr. Shine Del Rosario PROF CHEM 8 (BAS METB)on Anion gap [Moles/Vol] 10.4 mmol/L Normal [facility] Comment on above: Performed By: #### P HVEN #### [facility] [address] [place] [address] Dr. Shine Del Rosario Calcium [Mass/Vol] 8.2 mg/dL Critically low 8.5-10.1 [facility] Comment on above: Performed By: #### P HVEN #### [facility] [address] [place] [address] Dr. Shine Del Rosario Chloride [Moles/Vol] 100 mmol/L Normal 98-107 [facility] Comment on above: Performed By: #### P HVEN #### [facility] [address] [place] [address] Dr. Shine Del Rosario CO2 [Moles/Vol] 23.9 mmol/L Normal 21.0-32.0 [facility] Comment on above: Performed By: #### P HVEN #### [facility] [address] [place] [address] Dr. Shine Del Rosario Creatinine [Mass/Vol] 0.84 mg/dL Normal 0.55-1.02 [facility] Comment on above: Performed By: #### P HVEN #### [facility] [address] [place] [address] Dr. Shine Del Rosario EGFR-AF GUINEAN >60 Normal >=60 [facility] Comment on above: Performed By: #### P HVEN #### [facility] [address] [place] [address] Dr. Shine Del Rosario EGFR-NON AF GUINEAN >60 Normal >=60 [facility] Comment on above: Performed By: #### P HVEN #### [facility] [address] [address] [address] Shine Del Rosario Glucose [Mass/Vol] 101 mg/dL Normal 74-106 [facility] Comment on above: Performed By: #### P HVEN #### [facility] [address] [address] [address] Shine Del Rosario Potassium [Moles/Vol] 4.3 mmol/L Normal 3.5-5.1 [facility] Comment on above: Performed By: #### P HVEN #### [facility] [address] [address] [address] Shine Del Rosario Sodium [Moles/Vol] 130 mmol/L Critically low 136-145 [facility] Comment on above: Performed By: #### P HVEN #### [facility] [address] [place] [address] Dr. Shine Del Rosario Urea nitrogen [Mass/Vol] 24.0 mg/dL Critically high 7.0-18.0 [facility] Comment on above: Performed By: #### P HVEN #### [facility] [address] [place] [address] Dr. Shine Del Rosario Urea nitrogen/Creatinine [Mass ratio] 28.6 mg/mg Normal [facility] Comment on above: Performed By: #### P HVEN #### [facility] [address] [place] [address] Dr. Shine Del Rosario BNPon 09-08-2021 Natriuretic peptide B (Bld) [Mass/Vol] 358.0 pg/mL Normal <=900.0 [facility] Comment on above: Performed By: #### P TT, PT #### [facility] [address] [address] [address] Shine Del Rosario CBC W MANUAL DIFFon 09-09-19 ATYPICAL LYMPH # Normal [facility] Comment on above: Performed By: #### P TT, PT #### [facility] [address] [address] [address] Shine Del Rosario ATYPICAL LYMPH % Normal [facility] Comment on above: Performed By: #### P TT, PT #### [facility] [address] [place] [address] Dr. Shine Del Rosario BAND # 0.6 103/ul Critically high 0.0-0.3 [facility] Comment on above: Performed By: #### P TT, PT #### [facility] [address] [place] [address] Dr. Shine Del Rosario BAND % 5 % Normal 0-5 [facility] Comment on above: Performed By: #### P TT, PT #### [facility] [address] [place] [address] Dr. Shine Del Rosario BASOM # 0.00 103/ul Normal 0.00-0.10 [facility] Comment on above: Performed By: #### P TT, PT #### [facility] [address] [place] [address] Dr. Shine Del Rosario BASOM % 0.0 % Critically low 0.2-2.0 [facility] Comment on above: Performed By: #### P TT, PT #### [facility] [address] [place] [address] Dr. Shine Del Rosario BLAST # Normal [facility] Comment on above: Performed By: #### P TT, PT #### [facility] [address] [place] [address] Dr. Shine Del Rosario BLAST % Normal [facility] Comment on above: Performed By: #### P TT, PT #### [facility] [address] [place] [address] Dr. Shine Del Rosario CORRECTED WBC Normal 4.0-11.0 [facility] Comment on above: Performed By: #### P TT, PT #### [facility] [address] [place] [address] Dr. Shine Del Rosario EOS # 0.60 103/ul Normal 0.00-0.70 [facility] Comment on above: Performed By: #### P TT, PT #### [facility] [address] [place] [address] Dr. Shine Del Rosario EOS% 5.0 % Normal 0.9-7.0 [facility] Comment on above: Performed By: #### P TT, PT #### [facility] [address] [address] [address] Shine Del Rosario HCT 25.4 % Critically low 36.0-48.0 [facility] Comment on above: Performed By: #### P TT, PT #### [facility] [address] [address] [address] Shine Del Rosario HGB 7.9 g/dl Critically low 12.0-16.0 [facility] Comment on above: Performed By: #### P TT, PT #### [facility] [address] [address] [address] Shine Del Rosario LYMPHM # 1.44 103/ul Normal 1.20-3.80 [facility] Comment on above: Performed By: #### P TT, PT #### [facility] [address] [place] [address] Dr. Shine Del Rosario LYMPHM% 12.0 % Critically low 20.5-60.0 [facility] Comment on above: Performed By: #### P TT, PT #### [facility] [address] [place] [address] Dr. Shine Del Rosario MCH 32.0 pg Normal 26.7-34.0 [facility] Comment on above: Performed By: #### P TT, PT #### [facility] [address] [place] [address] Dr. Shine Del Rosario MCHC 31.1 g/dl Normal 29.9-35.2 [facility] Comment on above: Performed By: #### P TT, PT #### [facility] [address] [place] [address] Dr. Shine Del Rosario MCV 102.8 fL Critically high 81.0-99.0 [facility] Comment on above: Performed By: #### P TT, PT #### [facility] [address] [place] [address] Dr. Shine Del Rosario METAMYELOCYTE # Normal [facility] Comment on above: Performed By: #### P TT, PT #### [facility] [address] [place] [address] Dr. Shine Del Rosario METAMYELOCYTE % Normal [facility] Comment on above: Performed By: #### P TT, PT #### [facility] [address] [place] [address] Dr. Shine Del Rosario MONOM# 1.80 103/ul Critically high 0.30-0.80 [facility] Comment on above: Performed By: #### P TT, PT #### [facility] [address] [place] [address] Dr. Shine Del Rosario MONOM% 15.0 % Critically high 1.7-12.0 [facility] Comment on above: Performed By: #### P TT, PT #### [facility] [address] [place] [address] Dr. Shine Del Rosario MPV 8.9 fL Critically low 9.5-13.5 [facility] Comment on above: Performed By: #### P TT, PT #### [facility] [address] [place] [address] Dr. Shine Del Rosario MYELOCYTE # Normal [facility] Comment on above: Performed By: #### P TT, PT #### [facility] [address] [place] [address] Dr. Shine Del Rosario MYELOCYTE % Normal [facility] Comment on above: Performed By: #### P TT, PT #### [facility] [address] [place] [address] Dr. Shine Del Rosario NRBC Normal [facility] Comment on above: Performed By: #### P TT, PT #### [facility] [address] [place] [address] Dr. Shine Del Rosario PLT 428 103/ul Normal 150-450 [facility] Comment on above: Performed By: #### P TT, PT #### [facility] [address] [place] [address] Dr. Shine Del Rosario RBC 2.47 106/ul Critically low 4.20-5.40 [facility] Comment on above: Performed By: #### P TT, PT #### [facility] [address] [place] [address] Dr. Shine Del Rosario RDW 13.2 % Normal 11.0-15.0 [facility] Comment on above: Performed By: #### P TT, PT #### [facility] [address] [address] [address] Shine Del Rosario SEG # 7.56 103/ul Critically high 1.40-6.50 [facility] Comment on above: Performed By: #### P TT, PT #### [facility] [address] [address] [address] Shine Del Rosario SEG % 63.0 % Normal 43.0-75.0 [facility] Comment on above: Performed By: #### P TT, PT #### [facility] [address] [address] [address] Shine Del Rosario WBC 12.0 103/ul Critically high 4.0-11.0 [facility] Comment on above: Performed By: #### P TT, PT #### [facility] [address] [place] [address] Dr. Shine Del Rosario CTA CHEST WO [...] by: BEBETO PUTNAM Date: 2021-09-08 11:25 Normal [facility] D-DIMERon 09-08-2021 D-DIMER 4.13 mg/L FEU Critically high 0.19-0.50 [facility] Comment on above: Performed By: #### P TT, PT #### [facility] [address] [address] [address] Shine Del Rosario D-DIMER COMMENTS SEE BELOW Normal [facility] Comment on above: Result Comment: Incr [...] Performed By: #### P TT, PT #### [facility] [address] [address] [address] Shine Del Rosario ECHOCARDIO M/2D COMPLETEon 0 09-08-2021 ECHOCARDIO M/2D COMPLETE Patient: CATHERINE ADAMSON Exam Date: 09/08/2021 : 1960 Gender:F Ordering : DR LENY MCCULLOUGH . Admission #: [id number] Family : DR XIMENA ASTUDILLO M.D. Order #: [id number] CLICK HERE TO VIEW EXAM ECHOCARDIOGRAM REPORT PROCEDURE: CARDIO PULMONARY ECHOCARDIO M/2D COMP INDICATIONS: Shortness of breath, h/o VT, PTCA, hypertension, COPD COMPARISON: None. DESCRIPTION: COMPLETE [...] Area(A2C): 16.50 cm2 Left Atrium Systolic Volume(A2C): 18065 mm3 Mitral Valve MV E to A [...] Garcia M.D. on 09/08/2021 at 14:24 Normal [facility] LIVER PROFILEon 09-08-2021 Albumin [Mass/Vol] 3.0 g/dL Critically low 3.4-5.0 [facility] Comment on above: Performed By: #### L IVER #### [facility] [address] [place] [address] Dr. Shine Del Rosario Albumin/Globulin [Mass ratio] 1.0 {ratio} Normal [facility] Comment on above: Performed By: #### L IVER #### [facility] [address] [place] [address] Dr. Shine Del Rosario ALP [Catalytic activity/Vol] 108 U/L Normal 46-116 [facility] Comment on above: Performed By: #### L IVER #### [facility] [address] [address] [address] Shine Del Rosario ALT [Catalytic activity/Vol] 52 U/L Normal 14-59 [facility] Comment on above: Performed By: #### L IVER #### [facility] [address] [address] [address] Shine Del Rosario AST [Catalytic activity/Vol] 50 U/L Critically high 15-37 [facility] Comment on above: Performed By: #### L IVER #### [facility] [address] [address] [address] Shine Del Rosario BILI, CONJUGATED 0.3 mg/dL Critically high 0.0-0.2 [facility] Comment on above: Performed By: #### L IVER #### [facility] [address] [address] [address] Shine Del Rosario Bilirubin [Mass/Vol] 0.9 mg/dL Normal 0.2-1.0 [facility] Comment on above: Performed By: #### L IVER #### [facility] [address] [address] [address] Shine Del Rosario Globulin (S) [Mass/Vol] 3.1 g/dL Normal [facility] Comment on above: Performed By: #### L IVER #### [facility] [address] [place] [address] Dr. Shine Del Rosario Protein [Mass/Vol] 6.1 g/dL Normal 6.1-8.2 [facility] Comment on above: Performed By: #### L IVER #### [facility] [address] [place] [address] Dr. Shine Del Rosario OCC BLD IMMUNO SCREENon 08-13 OCCULT BLOOD Negative Normal NEGATIVE [facility] Comment on above: Performed By: #### P TT, PT #### [facility] [address] [place] [address] Dr. Shine Del Rosario OSMOLALITY URINEon Osmolality, Urine 334 mOsmol/kg Normal [facility] Comment on above: Result Comment: 24 h r : 300 - 900 Random: 50 - 1400 After 12hr fluid restriction: >850 Performed By: #### B MP #### [facility] [address] [place] [address] Dr. Shine Del Rosario PROF CHEM 8 (BAS METB)on Anion gap [Moles/Vol] 13.7 mmol/L Normal [facility] Comment on above: Performed By: #### P HVEN #### [facility] [address] [place] [address] Dr. Shine Del Rosario Calcium [Mass/Vol] 8.6 mg/dL Normal 8.5-10.1 [facility] Comment on above: Performed By: #### P HVEN #### [facility] [address] [address] [address] Shine Del Rosario Chloride [Moles/Vol] 95 mmol/L Critically low 98-107 [facility] Comment on above: Performed By: #### P HVEN #### [facility] [address] [address] [address] Shine Del Rosario CO2 [Moles/Vol] 24.2 mmol/L Normal 21.0-32.0 [facility] Comment on above: Performed By: #### P HVEN #### [facility] [address] [place] [address] Dr. Shine Del Rosario Creatinine [Mass/Vol] 0.93 mg/dL Normal 0.55-1.02 [facility] Comment on above: Performed By: #### P HVEN #### [facility] [address] [place] [address] Dr. Shine Del Rosario EGFR-AF GUINEAN >60 Normal >=60 [facility] Comment on above: Performed By: #### P HVEN #### [facility] [address] [place] [address] Dr. Shine Del Rosario EGFR-NON AF GUINEAN >60 Normal >=60 [facility] Comment on above: Performed By: #### P HVEN #### [facility] [address] [place] [address] Dr. Shine Del Rosario Glucose [Mass/Vol] 122 mg/dL Critically high 74-106 [facility] Comment on above: Performed By: #### P HVEN #### [facility] [address] [place] [address] Dr. Shine Del Rosario Potassium [Moles/Vol] 4.7 mmol/L Normal 3.5-5.1 [facility] Comment on above: Performed By: #### P HVEN #### [facility] [address] [place] [address] Dr. Shine Del Rosario Sodium [Moles/Vol] 128 mmol/L Critically low 136-145 [facility] Comment on above: Performed By: #### P HVEN #### [facility] [address] [address] [address] Shine Del Rosario Urea nitrogen [Mass/Vol] 25.0 mg/dL Critically high 7.0-18.0 [facility] Comment on above: Performed By: #### P HVEN #### [facility] [address] [address] [address] Shine Del Rosario Urea nitrogen/Creatinine [Mass ratio] 26.8 mg/mg Normal [facility] Comment on above: Performed By: #### P HVEN #### [facility] [address] [address] [address] Shine Del Rosario Anion gap [Moles/Vol] 14.5 mmol/L Normal [facility] Comment on above: Performed By: #### B MP #### [facility] [address] [address] [address] Shine Del Rosario Calcium [Mass/Vol] 8.5 mg/dL Normal 8.5-10.1 [facility] Comment on above: Performed By: #### B MP #### [facility] [address] [address] [address] Shine Del Rosario Chloride [Moles/Vol] 94 mmol/L Critically low 98-107 [facility] Comment on above: Performed By: #### B MP #### [facility] [address] [address] [address] Shine Del Rosario CO2 [Moles/Vol] 22.1 mmol/L Normal 21.0-32.0 [facility] Comment on above: Performed By: #### B MP #### [facility] [address] [address] [address] Shine Del Rosario Creatinine [Mass/Vol] 1.42 mg/dL Critically high 0.55-1.02 [facility] Comment on above: Performed By: #### B MP #### [facility] [address] [address] [address] Shine Del Rosario EGFR-AF GUINEAN 45 mL/min/1.73m2 Critically low >=60 [facility] Comment on above: Performed By: #### B MP #### [facility] [address] [address] [address] Shine Del Rosario EGFR-NON AF GUINEAN 37 mL/min/1.73m2 Critically low >=60 [facility] Comment on above: Performed By: #### B MP #### [facility] [address] [address] [address] Shine Del Rosario Glucose [Mass/Vol] 123 mg/dL Critically high 74-106 [facility] Comment on above: Performed By: #### B MP #### [facility] [address] [address] [address] Shine Del Rosario Potassium [Moles/Vol] 4.6 mmol/L Normal 3.5-5.1 [facility] Comment on above: Performed By: #### B MP #### [facility] [address] [place] [address] Dr. Shine Del Rosario Sodium [Moles/Vol] 126 mmol/L Critically low 136-145 [facility] Comment on above: Performed By: #### B MP #### [facility] [address] [address] [address] Shine Del Rosario Urea nitrogen [Mass/Vol] 28.0 mg/dL Critically high 7.0-18.0 [facility] Comment on above: Performed By: #### B MP #### [facility] [address] [place] [address] Dr. Shine Del Rosario Urea nitrogen/Creatinine [Mass ratio] 19.7 mg/mg Normal [facility] Comment on above: Performed By: #### B MP #### [facility] [address] [address] [address] Shine Del Rosario CBC W MANUAL DIFFon 09-08-19 22 ATYPICAL LYMPH # Normal [facility] Comment on above: Performed By: #### P TT, PT #### [facility] [address] [place] [address] Dr. Shine Del Rosario ATYPICAL LYMPH % Normal [facility] Comment on above: Performed By: #### P TT, PT #### [facility] [address] [place] [address] Dr. Shine Del Rosario BAND # 0.4 103/ul Critically high 0.0-0.3 [facility] Comment on above: Performed By: #### P TT, PT #### [facility] [address] [place] [address] Dr. Shine Del Rosario BAND % 3 % Normal 0-5 [facility] Comment on above: Performed By: #### P TT, PT #### [facility] [address] [place] [address] Dr. Shine Del Rosario BASOM # 0.00 103/ul Normal 0.00-0.10 [facility] Comment on above: Performed By: #### P TT, PT #### [facility] [address] [place] [address] Dr. Shine Del Rosario BASOM % 0.0 % Critically low 0.2-2.0 [facility] Comment on above: Performed By: #### P TT, PT #### [facility] [address] [place] [address] Dr. Shine Del Rosario BLAST # Normal [facility] [facility] Comment on above: Performed By: #### P TT, PT #### [facility] [address] [place] [address] Dr. Shine Del Rosario BLAST % Normal [facility] Comment on above: Performed By: #### P TT, PT #### [facility] [address] [place] [address] Dr. Shine Del Rosario CORRECTED WBC Normal 4.0-11.0 [facility] Comment on above: Performed By: #### P TT, PT #### [facility] [address] [place] [address] Dr. Shine Del Rosario EOS # 0.24 103/ul Normal 0.00-0.70 [facility] Comment on above: Performed By: #### P TT, PT #### [facility] [address] [place] [address] Dr. Shine Del Rosario EOS% 2.0 % Normal 0.9-7.0 [facility] Comment on above: Performed By: #### P TT, PT #### [facility] [address] [address] [address] Shine Del Rosario HCT 24.9 % Critically low 36.0-48.0 [facility] Comment on above: Performed By: #### P TT, PT #### [facility] [address] [place] [address] Dr. Shine Del Rosario HGB 7.9 g/dl Critically low 12.0-16.0 [facility] Comment on above: Performed By: #### P TT, PT #### [facility] [address] [place] [address] Dr. Shine Del Rosario LYMPHM # 1.33 103/ul Normal 1.20-3.80 [facility] Comment on above: Performed By: #### P TT, PT #### [facility] [address] [place] [address] Dr. Shine Del Rosario LYMPHM% 11.0 % Critically low 20.5-60.0 [facility] Comment on above: Performed By: #### P TT, PT #### [facility] [address] [place] [address] Dr. Shine Del Rosario MCH 32.4 pg Normal 26.7-34.0 [facility] Comment on above: Performed By: #### P TT, PT #### [facility] [address] [place] [address] Dr. Shine Del Rosario MCHC 31.7 g/dl Normal 29.9-35.2 [facility] Comment on above: Performed By: #### P TT, PT #### [facility] [address] [place] [address] Dr. Shien Del Rosario MCV 102.0 fL Critically high 81.0-99.0 [facility] Comment on above: Performed By: #### P TT, PT #### [facility] [address] [place] [address] Dr. Shine Del Rosario METAMYELOCYTE # Normal [facility] Comment on above: Performed By: #### P TT, PT #### [facility] [address] [place] [address] Dr. Shine Del Rosario METAMYELOCYTE % Normal [facility] Comment on above: Performed By: #### P TT, PT #### [facility] [address] [address] [address] Shine Del Rosario MONOM# 1.81 103/ul Critically high 0.30-0.80 [facility] Comment on above: Performed By: #### P TT, PT #### [facility] [address] [address] [address] Shine Del Rosario MONOM% 15.0 % Critically high 1.7-12.0 [facility] Comment on above: Performed By: #### P TT, PT #### [facility] [address] [address] [address] Shine Del Rosario MPV 9.0 fL Critically low 9.5-13.5 [facility] Comment on above: Performed By: #### P TT, PT #### [facility] [address] [place] [address] Dr. Shine Del Rosario MYELOCYTE # Normal [facility] Comment on above: Performed By: #### P TT, PT #### [facility] [address] [address] [address] Shine Del Rosario MYELOCYTE % Normal [facility] Comment on above: Performed By: #### P TT, PT #### [facility] [address] [place] [address] Dr. Shine Del Rosario NRBC Normal [facility] Comment on above: Performed By: #### P TT, PT #### [facility] [address] [address] [address] Shine Del Rosario PLT 381 103/ul Normal 150-450 [facility] Comment on above: Performed By: #### P TT, PT #### [facility] [address] [address] [address] Shine Del Rosario RBC 2.44 106/ul Critically low 4.20-5.40 [facility] Comment on above: Performed By: #### P TT, PT #### [facility] [address] [place] [address] Dr. Shine Del Rosario RDW 12.7 % Normal 11.0-15.0 [facility] Comment on above: Performed By: #### P TT, PT #### [facility] [address] [address] [address] Shine Del Rosario SEG # 8.35 103/ul Critically high 1.40-6.50 [facility] Comment on above: Performed By: #### P TT, PT #### [facility] [address] [place] [address] Dr. Shine Del Rosario SEG % 69.0 % Normal 43.0-75.0 [facility] Comment on above: Performed By: #### P TT, PT #### [facility] [address] [place] [address] Dr. Shine Del Rosario WBC 12.1 103/ul Critically high 4.0-11.0 [facility] Comment on above: Performed By: #### P TT, PT #### [facility] [address] [place] [address] Dr. Shine Del Rosario OSMOLALITYon 09-07-2021 Osmolality [Osmolality] 253 mosm/kg Critically low 280-301 [facility] Comment on above: Performed By: #### L IVER #### [facility] [address] [place] [address] Dr. Shine Del Rosario PROF CHEM 8 (BAS METB)on Anion gap [Moles/Vol] 12.6 mmol/L Normal [facility] Comment on above: Performed By: #### P TT, PT #### [facility] [address] [place] [address] Dr. Shine Del Rosario Calcium [Mass/Vol] 8.4 mg/dL Critically low 8.5-10.1 [facility] Comment on above: Performed By: #### P TT, PT #### [facility] [address] [place] [address] Dr. Shine Del Rosario Chloride [Moles/Vol] 95 mmol/L Critically low 98-107 [facility] Comment on above: Performed By: #### P TT, PT #### [facility] [address] [place] [address] Dr. Shine Del Rosario CO2 [Moles/Vol] 24.7 mmol/L Normal 21.0-32.0 [facility] Comment on above: Performed By: #### P TT, PT #### [facility] [address] [address] [address] Shine Del Rosario Creatinine [Mass/Vol] 1.02 mg/dL Normal 0.55-1.02 [facility] Comment on above: Performed By: #### P TT, PT #### [facility] [address] [address] [address] Shine Del Rosario EGFR-AF GUINEAN >60 Normal >=60 [facility] Comment on above: Performed By: #### P TT, PT #### [facility] [address] [address] [address] Shine Del Rosario EGFR-NON AF GUINEAN 55 mL/min/1.73m2 Critically low >=60 [facility] Comment on above: Performed By: #### P TT, PT #### [facility] [address] [place] [address] Dr. Shine Del Rosario Glucose [Mass/Vol] 116 mg/dL Critically high 74-106 [facility] Comment on above: Performed By: #### P TT, PT #### [facility] [address] [place] [address] Dr. Shine Del Rosario Potassium [Moles/Vol] 4.3 mmol/L Normal 3.5-5.1 [facility] Comment on above: Performed By: #### P TT, PT #### [facility] [address] [address] [address] Shine Del Rosario Sodium [Moles/Vol] 128 mmol/L Critically low 136-145 [facility] Comment on above: Performed By: #### P TT, PT #### [facility] [address] [address] [address] Shine Del Rosario Urea nitrogen [Mass/Vol] 20.0 mg/dL Critically high 7.0-18.0 [facility] Comment on above: Performed By: #### P TT, PT #### [facility] [address] [place] [address] Dr. Shine Del Rosario Urea nitrogen/Creatinine [Mass ratio] 19.6 mg/mg Normal [facility] Comment on above: Performed By: #### P TT, PT #### [facility] [address] [address] [address] Shine Del Rosario XR CHEST 1 [...] GAMAL ARRIAZA Date: 2021-09-07 06:32 Normal [facility] CBC AUTO DIFFon 09-06-2021 BASO # 0.1 103/ul Normal 0.0-0.1 [facility] Comment on above: Performed By: #### P TT, PT #### [facility] [address] [address] [address] Shine Del Rosario Basophils/100 WBC (Bld) 0.7 % Normal 0.2-2.0 [facility] Comment on above: Performed By: #### P TT, PT #### [facility] [address] [place] [address] Dr. Shine Del Rosario EO # 0.3 103/ul Normal 0.0-0.7 [facility] Comment on above: Performed By: #### P TT, PT #### [facility] [address] [address] [address] Shine Del Rosario Eosinophils/100 WBC (Bld) 3.0 % Normal 0.9-7.0 [facility] Comment on above: Performed By: #### P TT, PT #### [facility] [address] [place] [address] Dr. Shine Del Rosario Erythrocyte distribution width (RBC) [Ratio] 12.3 % Normal 11.0-15.0 [facility] Comment on above: Performed By: #### P TT, PT #### [facility] [address] [place] [address] Dr. Shine Del Rosario Hematocrit (Bld) [Volume fraction] 22.2 % Critically low 36.0-48.0 [facility] Comment on above: Result Comment: repe ated Performed By: #### P TT, PT #### [facility] [address] [place] [address] Dr. Shine Del Rosario Hemoglobin (Bld) [Mass/Vol] 7.3 g/dL Critically low 12.0-16.0 [facility] Comment on above: Performed By: #### P TT, PT #### [facility] [address] [place] [address] Dr. Shine Del Rosario IG # 0.18 10e3/ul Critically high 0.00-0.03 [facility] Comment on above: Performed By: #### P TT, PT #### [facility] [address] [place] [address] Dr. Shine Del Rosario IG % 2.1 % Critically high 0.0-0.5 [facility] Comment on above: Performed By: #### P TT, PT #### [facility] [address] [place] [address] Dr. Shine Del Rosario LYMPH # 1.5 103/ul Normal 1.2-3.8 [facility] Comment on above: Performed By: #### P TT, PT #### [facility] [address] [place] [address] Dr. Shine Del Rosario Lymphocytes/100 WBC (Bld) 17.7 % Critically low 20.5-60.0 [facility] Comment on above: Performed By: #### P TT, PT #### [facility] [address] [place] [address] Dr. Shine Del Rosario MANUAL DIFF REQ NO Normal [facility] Comment on above: Performed By: #### P TT, PT #### [facility] [address] [place] [address] Dr. Shine Del Rosario MCH (RBC) [Entitic mass] 32.0 pg Normal 26.7-34.0 [facility] Comment on above: Performed By: #### P TT, PT #### [facility] [address] [place] [address] Dr. Shine Del Rosario MCHC (RBC) [Mass/Vol] 32.9 g/dL Normal 29.9-35.2 [facility] Comment on above: Performed By: #### P TT, PT #### [facility] [address] [place] [address] Dr. Shine Del Rosario MCV (RBC) [Entitic vol] 97.4 fL Normal 81.0-99.0 [facility] Comment on above: Performed By: #### P TT, PT #### [facility] [address] [place] [address] Dr. Shine Del Rosario MONO # 1.2 103/ul Critically high 0.3-0.8 [facility] Comment on above: Performed By: #### P TT, PT #### [facility] [address] [place] [address] Dr. Shine Del Rosario Monocytes/100 WBC (Bld) 14.1 % Critically high 1.7-12.0 [facility] Comment on above: Performed By: #### P TT, PT #### [facility] [address] [place] [address] Dr. Shine Del Rosario NEUT # 5.4 103/ul Normal 1.4-6.5 [facility] Comment on above: Performed By: #### P TT, PT #### [facility] [address] [place] [address] Dr. Shine Del Rosario Neutrophils/100 WBC (Bld) 62.4 % Normal 43.0-75.0 [facility] Comment on above: Performed By: #### P TT, PT #### [facility] [address] [place] [address] Dr. Shine Del Rosario Platelet mean volume (Bld) [Entitic vol] 8.9 fL Critically low 9.5-13.5 [facility] Comment on above: Performed By: #### P TT, PT #### [facility] [address] [place] [address] Dr. Shine Del Rosario PLT 310 103/ul Normal 150-450 [facility] Comment on above: Performed By: #### P TT, PT #### [facility] [address] [address] [address] Shine Del Rosario RBC 2.28 106/ul Critically low 4.20-5.40 [facility] Comment on above: Performed By: #### P TT, PT #### [facility] [address] [address] [address] Shine Del Rosario WBC 8.7 103/ul Normal 4.0-11.0 [facility] Comment on above: Performed By: #### P TT, PT #### [facility] [address] [address] [address] Shine Del Rosario IRON AND TIBCon 09-06-2021 % SATURATION 13.1 % Normal [facility] Comment on above: Performed By: #### P HVEN #### [facility] [address] [place] [address] Dr. Shine Del Rosario Iron [Mass/Vol] 30.0 ug/dL Critically low 50.0-170.0 [facility] Comment on above: Performed By: #### P HVEN #### [facility] [address] [place] [address] Dr. Shine Del Rosario TIBC DIRECT 229.0 ug/dL Critically low 250.0-450. 0 [facility] Comment on above: Performed By: #### P HVEN #### [facility] [address] [place] [address] Dr. Shine Del Rosario MRI LSPINE WO [...] PAWAN GEORGE Date: 2021-09-06 12:53 Normal [facility] PROF CHEM 8 (BAS METB)on Anion gap [Moles/Vol] 10.9 mmol/L Normal [facility] Comment on above: Performed By: #### B MP #### [facility] [address] [address] [address] Shine Del Rosario Calcium [Mass/Vol] 8.1 mg/dL Critically low 8.5-10.1 [facility] Comment on above: Performed By: #### B MP #### [facility] [address] [address] [address] Shine Del Rosario Chloride [Moles/Vol] 95 mmol/L Critically low 98-107 [facility] Comment on above: Performed By: #### B MP #### [facility] [address] [address] [address] Shine Del Rosario CO2 [Moles/Vol] 25.6 mmol/L Normal 21.0-32.0 [facility] Comment on above: Performed By: #### B MP #### [facility] [address] [address] [address] Shine Del Rosairo Creatinine [Mass/Vol] 0.77 mg/dL Normal 0.55-1.02 [facility] Comment on above: Performed By: #### B MP #### [facility] [address] [address] [address] Shine Del Rosario EGFR-AF GUINEAN >60 Normal >=60 [facility] Comment on above: Performed By: #### B MP #### [facility] [address] [address] [address] Shine Del Rosario EGFR-NON AF GUINEAN >60 Normal >=60 [facility] Comment on above: Performed By: #### B MP #### [facility] [address] [address] [address] Shine Del Rosario Glucose [Mass/Vol] 103 mg/dL Normal 74-106 [facility] Comment on above: Performed By: #### B MP #### [facility] [address] [address] [address] Shine Del Rosario Potassium [Moles/Vol] 3.5 mmol/L Normal 3.5-5.1 [facility] Comment on above: Performed By: #### B MP #### [facility] [address] [address] [address] Shine Del Rosario Sodium [Moles/Vol] 128 mmol/L Critically low 136-145 [facility] Comment on above: Performed By: #### B MP #### [facility] [address] [address] [address] Shine Del Rosario Urea nitrogen [Mass/Vol] 14.0 mg/dL Normal 7.0-18.0 [facility] Comment on above: Performed By: #### B MP #### [facility] [address] [address] [address] Shine Del Rosario Urea nitrogen/Creatinine [Mass ratio] 18.2 mg/mg Normal [facility] Comment on above: Performed By: #### B MP #### [facility] [address] [place] [address] Dr. Shine Del Rosario US SINGLE QUAD [...] by: PAWAN GEORGE Date: 2021-09-06 11:01 Normal [facility] XR CHEST 1 Von 09-06-2021 XR [...] RITIKA HILLIARD Date: 2021-09-06 06:05 Normal [facility] BNPon 09-05-2021 Natriuretic peptide B (Bld) [Mass/Vol] 744.0 pg/mL Normal <=900.0 [facility] Comment on above: Performed By: #### B MP #### [facility] [address] [address] [address] Shine Del Rosario CARDIAC WILD ADMITon 022 CK [Catalytic activity/Vol] 211 U/L Critically high 26-192 [facility] Comment on above: Performed By: #### B MP #### [facility] [address] [address] [address] Shine Del Rosario CK.MB [Mass/Vol] 2.15 ng/mL Normal <=3.60 [facility] Comment on above: Performed By: #### B MP #### [facility] [address] [place] [address] Dr. Shine Del Rosario HSTROP 12.4 pg/mL Normal 4.0-51.3 [facility] Comment on above: Result Comment: CUT- OFF POINTS HAVE BEEN ESTABLISHED BASED ON THE FOURTH UNIVERSAL DEFINITIONS OF MYOCARDIAL INFARCTION. THE UPPER REFERENCE LIMIT (URL) OF TROPONIN, DEFINED THE 99TH PERCENTILE OF cTnI DISTRIBUTION IN A REFERENCE POPULATION, HAS BEEN CONFIRMED THE DECISION THRESHOLD FOR [place] DIAGNOSIS. Performed By: #### B MP #### [facility] [address] [place] [address] Dr. Shine Del Rosario YANG 176 ng/mL Critically high 9-82 [facility] Comment on above: Performed By: #### B MP #### [facility] [address] [place] [address] Dr. Shine Del Rosario CBC AUTO DIFFon 09-05-2021 BASO # 0.0 103/ul Normal 0.0-0.1 [facility] Comment on above: Performed By: #### B MP #### [facility] [address] [place] [address] Dr. Shine Del Rosario Basophils/100 WBC (Bld) 0.3 % Normal 0.2-2.0 [facility] Comment on above: Performed By: #### B MP #### [facility] [address] [place] [address] Dr. Shine Del Rosario EO # 0.1 103/ul Normal 0.0-0.7 [facility] Comment on above: Performed By: #### B MP #### [facility] [address] [place] [address] Dr. Shine Del Rosario Eosinophils/100 WBC (Bld) 0.4 % Critically low 0.9-7.0 [facility] Comment on above: Performed By: #### B MP #### [facility] [address] [place] [address] Dr. Shine Del Rosario Erythrocyte distribution width (RBC) [Ratio] 12.0 % Normal 11.0-15.0 [facility] Comment on above: Performed By: #### B MP #### [facility] [address] [place] [address] Dr. Shine Del Rosario Hematocrit (Bld) [Volume fraction] 25.8 % Critically low 36.0-48.0 [facility] Comment on above: Performed By: #### B MP #### [facility] [address] [place] [address] Dr. Shine Del Rosario Hemoglobin (Bld) [Mass/Vol] 8.8 g/dL Critically low 12.0-16.0 [facility] Comment on above: Performed By: #### B MP #### [facility] [address] [place] [address] Dr. Shine Del Rosario IG # 0.19 10e3/ul Critically high 0.00-0.03 [facility] Comment on above: Performed By: #### B MP #### [facility] [address] [place] [address] Dr. Shine Del Rosario IG % 1.6 % Critically high 0.0-0.5 [facility] Comment on above: Performed By: #### B MP #### [facility] [address] [place] [address] Dr. Shine Del Rosario LYMPH # 1.1 103/ul Critically low 1.2-3.8 [facility] Comment on above: Performed By: #### B MP #### [facility] [address] [place] [address] Dr. Shine Del Rosario Lymphocytes/100 WBC (Bld) 9.9 % Critically low 20.5-60.0 [facility] Comment on above: Performed By: #### B MP #### [facility] [address] [place] [address] Dr. Shine Del Rosario MANUAL DIFF REQ NO Normal [facility] Comment on above: Performed By: #### B MP #### [facility] [address] [place] [address] Dr. Shine Del Rosario MCH (RBC) [Entitic mass] 32.2 pg Normal 26.7-34.0 [facility] Comment on above: Performed By: #### B MP #### [facility] [address] [address] [address] Shine Del Rosario MCHC (RBC) [Mass/Vol] 34.1 g/dL Normal 29.9-35.2 [facility] Comment on above: Performed By: #### B MP #### [facility] [address] [address] [address] Shine Del Rosario MCV (RBC) [Entitic vol] 94.5 fL Normal 81.0-99.0 [facility] Comment on above: Performed By: #### B MP #### [facility] [address] [address] [address] Shine Del Rosario MONO # 1.1 103/ul Critically high 0.3-0.8 [facility] Comment on above: Performed By: #### B MP #### [facility] [address] [place] [address] Dr. Shine Del Rosario Monocytes/100 WBC (Bld) 9.7 % Normal 1.7-12.0 [facility] Comment on above: Performed By: #### B MP #### [facility] [address] [place] [address] Dr. Shine Del Rosario NEUT # 9.0 103/ul Critically high 1.4-6.5 [facility] Comment on above: Performed By: #### B MP #### [facility] [address] [place] [address] Dr. Shine Del Rosario Neutrophils/100 WBC (Bld) 78.1 % Critically high 43.0-75.0 [facility] Comment on above: Performed By: #### B MP #### [facility] [address] [address] [address] Shine Del Rosario Platelet mean volume (Bld) [Entitic vol] 9.1 fL Critically low 9.5-13.5 [facility] Comment on above: Performed By: #### B MP #### [facility] [address] [address] [address] Shine Del Rosario PLT 341 103/ul Normal 150-450 [facility] Comment on above: Performed By: #### B MP #### [facility] [address] [place], [place] [address] Dr. Shine Del Rosario RBC 2.73 106/ul Critically low 4.20-5.40 [facility] Comment on above: Performed By: #### B MP #### [facility] [id number] Shine Del Rosario WBC 11.6 103/ul Critically high 4.0-11.0 [facility] Comment on above: Performed By: #### B MP #### [facility] [id number] Shine Del Rosario CT CHEST WO [...] PAWAN GEORGE Date: 2021-09-05 12:46 Normal [facility] CT CSPINE WO CONon CT CSPINE [...] SLOANE DIEHL Date: 2021-09-05 09:38 Normal [facility] Covid-19 PCR (CVDTB)on 08-13 SARS-CoV-2 (COVID-19) RNA LYLA+probe Ql (Unsp spec) Not detected Normal NOT DETECTED [facility] Comment on above: Result Comment: When [...] for this test is supported by the Entry Writer of Health and Human Service's declaration that [...] used). Performed By: #### B MP #### [facility] [address] [place] [address] Dr. Shine Del Rosario ER URINE PROFILEon 2 Bilirubin Ql (U) Negative Normal NEGATIVE [facility] Comment on above: Performed By: #### P HVEN #### [facility] [address] [place] [address] Dr. Shine Del Rosario Clarity (U) CLEAR Normal CLEAR [facility] Comment on above: Performed By: #### P HVEN #### [facility] [address] [place] [address] Dr. Shine Del Rosario Color (U) LT. YELLOW Normal YELLOW [facility] Comment on above: Performed By: #### P HVEN #### [facility] [address] [place] [address] Dr. Shine ARDON A micrscopic examina tion will be performed if indicated. Normal [facility] Comment on above: Performed By: #### P HVEN #### [facility] [address] [place] [address] Dr. Shine Del Rosario Glucose Ql (U) Negative Normal NEGATIVE [facility] Comment on above: Performed By: #### P HVEN #### [facility] [address] [place] [address] Dr. Shine Del Rosario Hemoglobin Ql (U) Negative Normal NEGATIVE [facility] Comment on above: Performed By: #### P HVEN #### [facility] [address] [place] [address] Dr. Shine Del Rosario Ketones Ql (U) Negative Normal NEGATIVE [facility] Comment on above: Performed By: #### P HVEN #### [facility] [address] [place] [address] Dr. Shine Del Rosario LEUKOCYTES Negative Normal NEGATIVE [facility] Comment on above: Performed By: #### P HVEN #### [facility] [address] [place] [address] Dr. Shine Del Rosario Nitrite Ql (U) Negative Normal NEGATIVE [facility] Comment on above: Performed By: #### P HVEN #### [facility] [address] [place] [address] Dr. Shine Del Rosario pH (U) 6.0 [pH] Normal 5-9 [facility] Comment on above: Performed By: #### P HVEN #### [facility] [address] [place] [address] Dr. Shine Del Rosario SPEC GRAVITY 1.010 Normal 1.005-<=1. 025 [facility] Comment on above: Performed By: #### P HVEN #### [facility] [address] [place] [address] Dr. Shine Del Rosario UA PROTEIN Negative Normal NEGATIVE/ TRACE [facility] Comment on above: Performed By: #### P HVEN #### [facility] [address] [place] [address] Dr. Shine Del Rosario UR MICRO IND NOT INDICATED Normal [facility] Comment on above: Performed By: #### P HVEN #### [facility] [address] [place] [address] Dr. Shine Del Rosario Urobilinogen Qn (U) 0.2 {Estela'U}/dL Normal 0.2 - 1. 0 [facility] Comment on above: Performed By: #### P HVEN #### [facility] [address] [place] [address] Dr. Shine Del Rosario ETHANOL (BLD ALC)on 09-06-19 ALC NOTE NOTE: 80 mg/dl is th e legal limit for a blood alcohol level Normal [facility] Comment on above: Performed By: #### L IVER #### [facility] [address] [place] [address] Dr. Shine Del Rosario Ethanol [Mass/Vol] mg/dL Normal [facility] Comment on above: Performed By: #### L IVER #### [facility] [address] [place] [address] Dr. Shine Del Rosario INFLUENZA A AND B AGon 09-05 INFLUANEGH SEE BELOW Normal [facility] Comment on above: Result Comment: Nega tive for Flu A protein angiten. Infection due to Flu A cannot be ruled out. Flu A angiten in the sample may be below the detection limit of the test. Performed By: #### I NFLUAB #### [facility] [address] [place] [address] Dr. Shine Del Rosario INFLUBNEGH SEE BELOW Normal [facility] Comment on above: Result Comment: Nega tive for Flu B protein antigen. Infection due to Flu B cannot be ruled out. Flu B antigen in the sample may be below the detection limit of the test. Performed By: #### I NFLUAB #### [facility] [address] [place] [address] Dr. Shine Del Rosario INFLUENZA A AG Negative Normal NEGATIVE SEE COMMENT [facility] Comment on above: Performed By: #### I NFLUAB #### [facility] [address] [place] [address] Dr. Shine Del Rosario INFLUENZA B AG Negative Normal NEGATIVE SEE COMMENT [facility] Comment on above: Performed By: #### I NFLUAB #### [facility] [address] [place] [address] Dr. Shine Del Rosario INTERNAL CONTROLS Within Normal Limits Normal Wi thin Normal Limits [facility] Comment on above: Performed By: #### I NFLUAB #### [facility] [address] [place] [address] Dr. Shine Del Rosario PH VENOUS BLOODon 09-05-2021 PCO2 VENOUS 37.8 mmHg Critically low 40.0-52.0 [facility] Comment on above: Performed By: #### P HVEN #### [facility] [address] [place] [address] Dr. Shine Del Rosario pH VENOUS 7.416 Normal 7.330-7.43 0 [facility] Comment on above: Performed By: #### P HVEN #### [facility] [address] [address] [address] Shine Del Rosario PROF 14(COMP METB)on 022 Albumin [Mass/Vol] 3.2 g/dL Critically low 3.4-5.0 Th [facility] Comment on above: Performed By: #### B MP #### [facility] [address] [place] [address] Dr. Shine Del Rosario Albumin/Globulin [Mass ratio] 0.8 {ratio} Normal [facility] Comment on above: Performed By: #### B MP #### [facility] [address] [place] [address] Dr. Shine Del Rosario ALP [Catalytic activity/Vol] 111 U/L Normal 46-116 [facility] Comment on above: Performed By: #### B MP #### [facility] [address] [place] [address] Dr. Shine Del Rosario ALT [Catalytic activity/Vol] 72 U/L Critically high 14-59 [facility] Comment on above: Performed By: #### B MP #### [facility] [address] [place] [address] Dr. Shine Del Rosario Anion gap [Moles/Vol] 16.0 mmol/L Normal [facility] Comment on above: Performed By: #### B MP #### [facility] [address] [place] [address] Dr. Shine Del Rosario AST [Catalytic activity/Vol] 54 U/L Critically high 15-37 [facility] Comment on above: Performed By: #### B MP #### [facility] [address] [place] [address] Dr. Shine Del Rosario Bilirubin [Mass/Vol] 1.4 mg/dL Critically high 0.2-1.0 [facility] Comment on above: Performed By: #### B MP #### [facility] [address] [place] [address] Dr. Shine Del Rosario Calcium [Mass/Vol] 8.5 mg/dL Normal 8.5-10.1 [facility] Comment on above: Performed By: #### B MP #### [facility] [address] [address] [address] Shine Del Rosario Chloride [Moles/Vol] 85 mmol/L Critically low 98-107 [facility] Comment on above: Performed By: #### B MP #### [facility] [address] [address] [address] Shine Del Rosario CO2 [Moles/Vol] 22.7 mmol/L Normal 21.0-32.0 [facility] Comment on above: Performed By: #### B MP #### [facility] [address] [address] [address] Shine Del Rosario Creatinine [Mass/Vol] 1.03 mg/dL Critically high 0.55-1.02 [facility] Comment on above: Performed By: #### B MP #### [facility] [address] [place] [address] Dr. Shine Del Rosario EGFR-AF GUINEAN >60 Normal >=60 [facility] Comment on above: Performed By: #### B MP #### [facility] [address] [place] [address] Dr. Shine Del Rosario EGFR-NON AF GUINEAN 54 mL/min/1.73m2 Critically low >=60 [facility] Comment on above: Performed By: #### B MP #### [facility] [address] [place] [address] Dr. Shine Del Rosario Globulin (S) [Mass/Vol] 3.8 g/dL Normal [facility] Comment on above: Performed By: #### B MP #### [facility] [address] [address] [address] Shine Del Rosario Glucose [Mass/Vol] 136 mg/dL Critically high 74-106 T [facility] Comment on above: Performed By: #### B MP #### [facility] [address] [address] [address] Shine Del Rosario Potassium [Moles/Vol] 2.7 mmol/L Critically low 3.5-5.1 [facility] Comment on above: Performed By: #### B MP #### [facility] [address] [place] [address] Dr. Shine Del Rosario Protein [Mass/Vol] 7.0 g/dL Normal 6.1-8.2 [facility] Comment on above: Performed By: #### B MP #### [facility] [address] [place] [address] Dr. Shine Del Rosario Sodium [Moles/Vol] 120 mmol/L Critically low 136-145 [facility] Comment on above: Performed By: #### B MP #### [facility] [address] [place] [address] Dr. Shine Del Rosario Urea nitrogen [Mass/Vol] 16.0 mg/dL Normal 7.0-18.0 [facility] Comment on above: Performed By: #### B MP #### [facility] [address] [place] [address] Dr. Shine Del Rosario Urea nitrogen/Creatinine [Mass ratio] 15.5 mg/mg Normal [facility] Comment on above: Performed By: #### B MP #### [facility] [address] [place] [address] Dr. Shine Del Rosario PROTIMEon 09-05-2021 INR Coag (PPP) [Relative time] 0.96 {INR} Normal [facility] Comment on above: Performed By: #### P TT, PT #### [facility] [address] [place] [address] Dr. Shine Del Rosario INR GUIDELINES SEE BELOW Normal [facility] Comment on above: Result Comment: JUDY RED INR: 2.0 - 3.0 CONDITIONS NOT LISTED BELOW 2.5 - 3.5 FOR PROSTHETIC HEART VALVE REPLACEMENT 2.5 - 3.5 RECURRENT THROMBOSIS Performed By: #### P TT, PT #### [facility] [address] [place] [address] Dr. Shine Del Rosario PT Coag (PPP) [Time] 10.4 s Normal 9.0-11.6 [facility] Comment on above: Performed By: #### P TT, PT #### [facility] [address] [place] [address] Dr. Shine Del Rosario PTTon 09-05-2021 aPTT Coag (Bld) [Time] 37.6 s Critically high 22.3-36.2 [facility] Comment on above: Performed By: #### P TT, PT #### [facility] [address] [address] [address] Shine Del Rosario SODIUM RANDOM URINEon 2021 Sodium (U) [Moles/Vol] 20 mmol/L Critically low 30-90 [facility] Comment on above: Performed By: #### B MP #### [facility] [address] [address] [address] Shine Del Rosario TSHon 09-05-2021 TSH 1.734 uIU/mL Normal 0.470-4.68 0 [facility] Comment on above: Performed By: #### B MP #### [facility] [address] [place] [address] Dr. Shine Del Rosario TSH RANGE SEE BELOW Normal [facility] Comment on above: Result Comment: <0.3 4 UIU/ml HYPERTHYROID 0.34-5.60 UIU/ml EUTHYROID >5.60 UIU/ml HYPOTHYROID Performed By: #### B MP #### [facility] [address] [place] [address] Dr. Shine Del Rosario XR CHEST 1 [...] PAWAN GEORGE Date: 2021-09-05 09:25 Normal [facility] CT chest wo conon 07-25-2018 CT chest wo con [facility] [place] [address] CT Scan Report Signed Patient: Catherine Adamson MR#: [id number] : 1960 Acct:[id number] Age/Sex: 58 / F ADM Date: 07/25/18 Loc: Room: Type: [facility] Attending Dr: Judy Baltazar MD Ordering Provider: [...] Wild Cardoso M.D.07/25/2018 1:57 PM Dictation Location: [place] [address] Transcribed By: SOLOMON 07/25/18 135 Dictated By: Wild Cardoso II, MD 07/25/18 1351 Signed By: 07/25/18 135 [facility] US renal BIon 07-25-2018 US renal BI [facility] [place] [address] Ultrasound Report Signed Patient: Catherine Adamson MR#: [id number] : 1960 Acct:[id number] Age/Sex: 58 / F ADM Date: 07/25/18 Loc: Room: Type: [facility] Attending Dr: Judy Baltazar MD Ordering Provider: [...] Wild Cardoso M.D.07/25/2018 1:47 PM Dictation Location: [place] [address] Tech: Julia Foreman Transcribed By: SOLOMON 07/25/18 1347 Dictated By: Wild Cardoso II, MD 07/25/18 1346 Signed By: 07/25/18 1347 [facility] Discharge Summaryon 02-16-20 Discharge Summary MR#: [id number] [facility] Pt. Name: Catherine Adamson Admitted: 02/12/2017 Discharged: 02/14/2017 Date of : 1960 Physician: Wanda Wheeler M.D. 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 She stated the pain radiatedto her left jaw and caused numbness in her left arm and was also associatedwith anxiety. This prompted her to call 911, and take 4 baby aspirin. Shesaid her pain was relieved mildly with the 4 baby aspirin and was relievedwith 2 tablets of nitroglycerin which she was given in the emergencydepartment. She presented to the [facility] Emergency Department where EKG wasperformed, [...] beengiven instructions to follow up with the zigzag topstitcher at [facility] on and will undergo cardiac [...] Temperature 98.1, pulse 81, respirations 18, blood vvhovbww240/85, oxygen saturation 98% on room air.GENERAL: Alert [...] TIME OF DISCHARGE: Sodium 139, potassium 3.6, [id number], carbon dioxide 24, calcium 8.9, GFR greater [...] Dict: 02/14/2017/04:05 Dulce/Leighton Goetz Trans: 02/15/2017 03:46 A/[id number]: Addy Zhong D.O. [address] [facility] A [facility] [address] Normal [facility] BASIC METABOLIC PANELon 10-0 Calcium 8.9 mg/dL Normal 8.6-10.3 [facility] Comment on above: Order Comment: No: D o not add to previous draw Performed By: #### 5 0103 ####[facility] [place] [address], [facility] Chloride 107 mmol/L Normal 98-107 [facility] Comment on above: Order Comment: No: D o not add to previous draw Performed By: #### 5 0103 ####[facility] [place] [address], [facility] CO2 24 mmol/L Normal 21-31 [facility] Comment on above: Order Comment: No: D o not add to previous draw Performed By: #### 5 0103 ####[facility] [place] [address], [place] Creatinine 0.55 mg/dL Low 0.60-1.20 [facility] Comment on above: Order Comment: No: D o not add to previous draw Performed By: #### 5 0103 ####[facility] [place] [address], [place] eGFR (black) mL/min/{1.73_m2} Normal >60 [facility] Comment on above: Order Comment: No: D o not add to previous draw Performed By: #### 5 0103 ####[facility] [place] [address], [place] eGFR (non-black) mL/min/{1.73_m2} Normal >60 [facility] Comment on above: Order Comment: No: D o not add to previous draw Performed By: #### 5 0103 ####[facility] [place] [address], [facility] Glucose mass conc 85 mg/dL Normal 70-100 [facility] Comment on above: Order Comment: No: D o not add to previous draw Performed By: #### 5 0103 ####[facility] [place] [address], [facility] Potassium molar conc 3.6 mmol/L Normal 3.5-5.1 [facility] Comment on above: Order Comment: No: D o not add to previous draw Performed By: #### 5 3 ####[facility] [place] [address], [facility] Sodium 139 mmol/L Normal 136-145 [facility] Comment on above: Order Comment: No: D o not add to previous draw Performed By: #### 5 3 ####[facility] [place] [address], [facility] Urea nitrogen 8 mg/dL Normal 7-25 [facility] Comment on above: Order Comment: No: D o not add to previous draw Performed By: #### 5 3 ####[facility] [place] [address], [facility] CBC COMPLETE BLOOD COUNTon 1 - Erythrocyte distribution width Auto Ratio (RBC) 13.0 % Normal 11.5-16.9 [facility] Comment on above: Order Comment: No: D o not add to previous draw Performed By: #### 5 3 ####[facility] [place] [address], [facility] Erythrocytes (RBC) 3.51 mill/mm3 Normal 3.50-5.50 [facility] Comment on above: Order Comment: No: D o not add to previous draw Performed By: #### 5 0103 ####[facility] Hematocrit (HCT) 33.4 % Low 36.0-48.0 [facility] Comment on above: Order Comment: No: D o not add to previous draw Performed By: #### 5 0103 ####[facility] Hemoglobin mass conc (Bld) 11.0 g/dL Low 12.0-15.0 [facility] Comment on above: Order Comment: No: D o not add to previous draw Performed By: #### 5 0103 ####[facility] [place] [address] MCH 31.4 pg Normal 24.0-32.0 [facility] Comment on above: Order Comment: No: D o not add to previous draw Performed By: #### 5 0103 ####[facility] [facility].[address] MCHC mass conc (RBC) 33.0 g/dL Normal 32.0-36.0 [facility] Comment on above: Order Comment: No: D o not add to previous draw Performed By: #### 5 0103 ####[facility] [facility].[address] MCV 95.1 fL Normal 80.0-100.0 [facility] Comment on above: Order Comment: No: D o not add to previous draw Performed By: #### 5 0103 ####[facility] [facility] [place] [address], [facility] PLAT CNT 352 Thou/mm3 Normal 100-400 [facility] Comment on above: Order Comment: No: D o not add to previous draw Performed By: #### 5 0103 ####[facility] WBC (Leukocytes) 6.1 Thou/mm3 Normal 4.0-10.0 [facility] Comment on above: Order Comment: No: D o not add to previous draw Performed By: #### 5 0103 ####[facility] Cardiovascular Lab Reporton 02-14-2017 Cardiovascular Lab Report [facility] Patient Name: Catherine Adamson [facility] MR #: [id number] Physician: Juaquin Blum M.D.Medicine Service Date: 02/13/2017Division of Birthdate: 1960Cardiology Room #: 3AB [id number] CardiovascularServicesUnivers[facility] HospitalBjktmeuQnqubf[address] [place], [place] [address]Cqjnx Fax Cardiovascular Laboratory ReportCARDIAC CATHETERIZATION REPORTINDICATION:Catherine Adamson is a 56-year-old woman, who was admitted with recurrentepisodes of chest pain and mild elevation of cardiac enzymes. She wasreferred to the quality control lab tech as a non ST-segment elevation myocardialinfarction.PROCEDURE S:1. [...] Shesigned informed consent. She was brought to quality control lab tech in a fasting state.Ez's test was favorable [...] at 11 atmospheres andpost-dilated using [employer] [place] 3.0 x 15 mm noncompliant ballooninflated at [...] 09:31 P Juaquin Roberto M.D.Date Dict: 02/13/2017/12:28 P/Juauqin Roberto M.D.Date Trans: 02/14/2017 09:31 A/Servando_JN:[id number]: Addy Zhong D.O. [address] [place] [address] Normal [facility] MAGNESIUM BLOODon 02-14-2017 Magnesium 2.0 mg/dL Normal 1.9-2.7 [facility] Comment on above: Performed By: #### 5 0103 ####[facility] [place] [address], [facility] TROPONIN-Ion 02-14-2017 Troponin I.cardiac mass conc 0.17 ng/mL High 0.00-0.04 [facility] Comment on above: Result Comment: REFE RENCE RANGES: 0.00 - 0.04 ng/ml NORMAL 0.05 - 0.50 ng/ml INDETERMINATE > 0.50 ng/ml CONSISTENT WITH AN M.I. Performed By: #### 5 0103 ####[facility] [place] [address], [facility] APTTon 02-13-2017 aPTT 39.1 s High 25.0-35.0 [facility] Comment on above: Order Comment: No: [...] THIS PURPOSE. Performed By: #### 5 6101, [address] ####[facility] [facility].[address] BASIC METABOLIC PANELon 10-0 Calcium 8.9 mg/dL Normal 8.6-10.3 [facility] Comment on above: Order Comment: No: D o not add to previous draw Performed By: #### 3 5200, 00224, 90503, 89265 ####[facility] [facility].[address] Chloride 105 mmol/L Normal 98-107 [facility] Comment on above: Order Comment: No: D o not add to previous draw Performed By: #### 3 5200, 01967, 86212, 03232 ####[facility] [facility].[address] CO2 25 mmol/L Normal 21-31 [facility] Comment on above: Order Comment: No: D o not add to previous draw Performed By: #### 3 5200, 27084, 51419, 61619 ####[facility] [facility].[address] Creatinine 0.51 mg/dL Low 0.60-1.20 [facility] Comment on above: Order Comment: No: D o not add to previous draw Performed By: #### 3 5200, 01809, 97202, 00467 ####[facility] [facility].[address] eGFR (black) mL/min/{1.73_m2} Normal >60 [facility] Comment on above: Order Comment: No: D o not add to previous draw Performed By: #### 3 5200, 96604, 77373, 96772 ####[facility] [facility] [place] [address], [place] eGFR (non-black) mL/min/{1.73_m2} Normal >60 [facility] Comment on above: Order Comment: No: D o not add to previous draw Performed By: #### 3 5200, 74567, 59218, 87042 ####[facility] [place] [address], [facility] Glucose mass conc 80 mg/dL Normal 70-100 [facility] Comment on above: Order Comment: No: D o not add to previous draw Performed By: #### 3 5200, 99511, 04952, 56312 ####[facility] [place] [address], [facility] Potassium molar conc 3.7 mmol/L Normal 3.5-5.1 [facility] Comment on above: Order Comment: No: D o not add to previous draw Performed By: #### 3 5200, 53195, 30926, 93775 ####[facility] [place] [address], [facility] Sodium 137 mmol/L Normal 136-145 [facility] Comment on above: Order Comment: No: D o not add to previous draw Performed By: #### 3 5200, 48032, 81602, 30016 ####[facility] [place] [address], [facility] Urea nitrogen 11 mg/dL Normal 7-25 [facility] Comment on above: Order Comment: No: D o not add to previous draw Performed By: #### 3 5200, 77401, 09279, 76809 ####[facility] [place] [address], [facility] CBC COMPLETE BLOOD COUNTon 1 - Erythrocyte distribution width Auto Ratio (RBC) 12.5 % Normal 11.5-16.9 [facility] Comment on above: Order Comment: No: D o not add to previous draw Performed By: #### 5 0608 ####[facility] Erythrocytes (RBC) 3.88 mill/mm3 Normal 3.50-5.50 [facility] Comment on above: Order Comment: No: D o not add to previous draw Performed By: #### 5 0608 ####[facility] Hematocrit (HCT) 36.5 % Normal 36.0-48.0 [facility] Comment on above: Order Comment: No: D o not add to previous draw Performed By: #### 5 0608 ####[facility] [facility].[address] Hemoglobin mass conc (Bld) 12.3 g/dL Normal 12.0-15.0 [facility] Comment on above: Order Comment: No: D o not add to previous draw Performed By: #### 5 0608 ####[facility] [facility].[address] MCH 31.7 pg Normal 24.0-32.0 [facility] Comment on above: Order Comment: No: D o not add to previous draw Performed By: #### 5 0608 ####[facility] [facility].[address] MCHC mass conc (RBC) 33.7 g/dL Normal 32.0-36.0 [facility] Comment on above: Order Comment: No: D o not add to previous draw Performed By: #### 5 0608 ####[facility] [facility].[address] MCV 94.1 fL Normal 80.0-100.0 [facility] Comment on above: Order Comment: No: D o not add to previous draw Performed By: #### 5 0608 ####[facility] [place] [address], [facility] PLAT CNT 361 Thou/mm3 Normal 100-400 [facility] Comment on above: Order Comment: No: D o not add to previous draw Performed By: #### 5 0608 ####[facility] WBC (Leukocytes) 5.6 Thou/mm3 Normal 4.0-10.0 [facility] Comment on above: Order Comment: No: D o not add to previous draw Performed By: #### 5 0608 ####[facility] CBC W/DIFFon 02-13-2017 Basophils Auto #/vol (Bld) 0.0 % Normal 0.0-2.0 [facility] Comment on above: Order Comment: No: D o not add to previous draw Performed By: #### 5 0103 ####[place] [address] [facility].[address] Eosinophils/100 leukocytes 0.0 % Normal 0.0-5.0 [facility] Comment on above: Order Comment: No: D o not add to previous draw Performed By: #### 5 0103 ####[facility] [facility].[address] Erythrocyte distribution width Auto Ratio (RBC) 12.7 % Normal 11.5-16.9 [facility] Comment on above: Order Comment: No: D o not add to previous draw Performed By: #### 5 0103 ####[facility] Erythrocytes (RBC) 3.61 mill/mm3 Normal 3.50-5.50 [facility] Comment on above: Order Comment: No: D o not add to previous draw Performed By: #### 5 0103 ####[facility] [facility].[address] Hematocrit (HCT) 34.0 % Low 36.0-48.0 [facility] Comment on above: Order Comment: No: D o not add to previous draw Performed By: #### 5 0103 ####[facility] Hemoglobin mass conc (Bld) 11.4 g/dL Low 12.0-15.0 [facility] Comment on above: Order Comment: No: D o not add to previous draw Performed By: #### 5 0103 ####[facility] Lymphocytes/100 leukocytes 58.0 % High 20.0-40.0 [facility] Comment on above: Order Comment: No: D o not add to previous draw Performed By: #### 5 0103 ####[address] MCH 31.7 pg Normal 24.0-32.0 [facility] Comment on above: Order Comment: No: D o not add to previous draw Performed By: #### 5 3 ####[facility] MCHC mass conc (RBC) 33.6 g/dL Normal 32.0-36.0 [facility] Comment on above: Order Comment: No: D o not add to previous draw Performed By: #### 5 0103 ####[facility] [place] [address] MCV 94.3 fL Normal 80.0-100.0 [facility] Comment on above: Order Comment: No: D o not add to previous draw Performed By: #### 5 0103 ####[facility] METHOD Manual blood smear e xamination performed Normal [facility] Comment on above: Order Comment: No: D o not add to previous draw Performed By: #### 5 3 ####[facility] [place] [address], [facility] MONOS 7.0 % Normal 2-8 [facility] Comment on above: Order Comment: No: D o not add to previous draw Performed By: #### 5 0103 ####[facility] [place] [address], [facility] OTHER 1 NORMAL RED CELL MORP HOLOGY SEEN Normal [facility] Comment on above: Order Comment: No: D o not add to previous draw Performed By: #### 5 0103 ####[facility]3000 [facility] [place] [address], [facility] PLAT CNT 359 Thou/mm3 Normal 100-400 [facility] Comment on above: Order Comment: No: D o not add to previous draw Performed By: #### 5 0103 ####[facility] [facility].[address] SEGS 35.0 % Low 50-70 [facility] Comment on above: Order Comment: No: D o not add to previous draw Performed By: #### 5 0103 ####[facility] [facility].[address] WBC (Leukocytes) 6.2 Thou/mm3 Normal 4.0-10.0 [facility] Comment on above: Order Comment: No: D o not add to previous draw Performed By: #### 5 0103 ####[facility] LIPID PROFILEon 02-13-2017 Cholesterol 204 mg/dL High 120-200 [facility] Comment on above: Order Comment: No: D o not add to previous draw Result Comment: CHOL ESTEROL REFERENCE RANGE:20 YEARS AND OLDER CARDIOVASCULAR RISKLess than 200 mg/dl Low Tdca317 to 239 mg/dl Borderline Mxxr490 mg/dl and greater High Risk Performed By: #### 5 0103 ####[facility] Cholesterol to HDL Ratio 3.5 {ratio} Normal .0-4.5 [facility] Comment on above: Order Comment: No: D o not add to previous draw Performed By: #### 5 0103 ####[facility] [facility].[address] HDL Cholesterol 59 mg/dL Normal 23-92 [facility] Comment on above: Order Comment: No: D o not add to previous draw Result Comment: Slig ht variation in normal range could be due to gender and/or age.HDL CHOLESTEROL REFERENCE RANGE:20 years and older Cardiovascular Risk> or =60 mg/dL Yubxcssxx23 TO 59 mg/dL Low Risk<40 mg/dL High Risk Performed By: #### 5 0103 ####[facility] LDL Cholesterol 135 mg/dL High 0-130 [facility] Comment on above: Order Comment: No: D o not add to previous draw Result Comment: LDL IS A CALCULATIONLDL IS ONLY VALID IF THE TRIG IS LESS THAN 400. Performed By: #### 5 0103 ####[facility] NON-HDL CHOLESTEROL 145 mg/dL Normal [facility] Comment on above: Order Comment: No: D o not add to previous draw Performed By: #### 5 0103 ####[facility] [facility].[address] Triglyceride 52 mg/dL Normal 40-149 [facility] Comment on above: Order Comment: No: D o not add to previous draw Result Comment: TRIG LYCERIDE REFERENCE RANGE:20 YEARS AND OLDER CARDIOVASCULAR RISKLESS THAN 150 mg/dl LOW HMOM112 TO 199 mg/dl BORDERLINE ICXG402 mg/dl AND GREATER HIGH RISK Performed By: #### 5 0103 ####[facility] [place] [address], [facility] VLDL CHOL 10 mg/dL Normal 0-40 [facility] Comment on above: Order Comment: No: D o not add to previous draw Performed By: #### 5 0103 ####[facility] [facility].[address] MAGNESIUM BLOODon 02-13-2017 Magnesium 1.8 mg/dL Low 1.9-2.7 [facility] Comment on above: Order Comment: No: D o not add to previous draw Performed By: #### 3 5200, 65941, 19564, 29871 ####[facility] [facility].[address] PHOSPHORUS BLOODon 7 Phosphate 3.0 mg/dL Normal 2.5-5.0 [facility] Comment on above: Order Comment: No: D o not add to previous draw Performed By: #### 3 5200, 02090, 23150, 70741 ####[facility] PROTHROMBIN TIMEon 7 INR Coag RelTime (PPP) 1.00 {INR} Normal 0.91-1.16 [facility] Comment on above: Order Comment: No: [...] OF ACTION, CLINICALEFFECTIVENESS, AND OPTIMAL THERAPEUTIC RANGE. [id number];108:[id number]. Performed By: #### 5 6101, [address] ####[place] [address] [facility].[address] Prothrombin time (PT) Coag time (PPP) 13.2 s Normal 12.3-14.8 [facility] Comment on above: Order Comment: No: D o not add to previous draw Result Comment: ALL RESULTS MUST BE INTERPRETED WITH RESPECT TO BLOOD DRAWING ARTIFACTOR DILUTION ERROR OF ANTICOAGULANT AT THE TIME OF SAMPLING. Performed By: #### 5 6101, 45560 ####[place] [address] [facility].[address] TROPONIN-Ion 02-13-2017 Troponin I.cardiac mass conc 0.28 ng/mL High 0.00-0.04 [facility] Comment on above: Result Comment: REFE RENCE RANGES: 0.00 - 0.04 ng/ml NORMAL 0.05 - 0.50 ng/ml INDETERMINATE > 0.50 ng/ml CONSISTENT WITH AN M.I. Performed By: #### 3 5200, 24509, 80883, 54277 ####[address] PORTABLE CHEST 1 VIEWon PORTABLE CHEST 1 VIEW [facility] [address] [place] [address] Patient Name: CATHERINE ADAMSON : 1960Sex: FAge: Race: WhiteMRN: [id number]. Location: [id number] Status: IVisit #: [id number] Date: 02/12/2017 8:30:00 PMCompleted Date: 02/12/2017 08:51 PMRequesting Provider: AMBER POPE Attending Provider: WANDA WHEELER Report Copy To: Signs & Symptoms: Chest PainHistory: Patient history not availableComments: R/O EffusionExam: PORTABLE CHEST 1 VIEWAccession #: [id number] PORTABLE CHEST 1 VIEW 02/12/2017 8:51 PM [...] effusion Electronically signed by:Margarita Correia. Transcribed by: [email or web address], User Resident: Electronically Signed by: MARGARITA CORREIA @ 02/13/2017 08:42 AM Normal [facility] Comment on above: Order Comment: R/O E ffusion TROPONIN-Ion 02-12-2017 Troponin I.cardiac mass conc 0.20 ng/mL High 0.00-0.04 [facility] Comment on above: Order Comment: No: D o not add to previous draw Result Comment: REFE RENCE RANGES: 0.00 - 0.04 ng/ml NORMAL 0.05 - 0.50 ng/ml INDETERMINATE > 0.50 ng/ml CONSISTENT WITH AN M.I. Performed By: #### 3 5200 ####[facility] [address], [facility] Vital Signs Date Time Vital Sign Value Performing Clinician Facility 06-05-2024 10:06-0500 Body height 158.75 cm [facility] 06-05-2024 10:06-0500 Body mass index (BMI) [Ratio] 24.3 kg/m2 [facility] 06-05-2024 10:06-0500 Body weight 61.23 kg [facility] 06-05-2024 10:06-0500 Diastolic blood pressure 71 mm[Hg] [facility] 06-05-2024 10:06-0500 Heart rate 90 /min [facility] 06-05-2024 10:06-0500 SaO2% (BldA) [Mass fraction] 97 % [facility] 06-05-2024 10:06-0500 Systolic blood pressure 117 mm[Hg] [facility] 04-21-2024 10:47-0500 Body height 158.75 cm [facility] 04-21-2024 10:47-0500 Body mass index (BMI) [Ratio] 24.7 kg/m2 [facility] 04-21-2024 10:47-0500 Body weight 62.25 kg [facility] 04-21-2024 10:47-0500 Diastolic blood pressure 71 mm[Hg] [facility] 04-21-2024 10:47-0500 Heart rate 86 /min [facility] 04-21-2024 10:47-0500 Systolic blood pressure 127 mm[Hg] [facility] 04-07-2024 10:41-0500 Body height 158.75 cm [facility] 04-07-2024 10:41-0500 Body mass index (BMI) [Ratio] 25 kg/m2 [facility] 04-07-2024 10:41-0500 Body weight 63.04 kg [facility] 04-07-2024 10:41-0500 Diastolic blood pressure 82 mm[Hg] [facility] 04-07-2024 10:41-0500 Heart rate 83 /min [facility] 04-07-2024 10:41-0500 Systolic blood pressure 173 mm[Hg] [facility] 01-29-2024 11:59-0400 Body height 158.75 cm [facility] 01-29-2024 11:59-0400 Body mass index (BMI) [Ratio] 24.8 kg/m2 [facility] 01-29-2024 11:59-0400 Body weight 62.59 kg [facility] 01-29-2024 11:59-0400 Diastolic blood pressure 84 mm[Hg] [facility] 01-29-2024 11:59-0400 Heart rate 78 /min [facility] 01-29-2024 11:59-0400 Systolic blood pressure 137 mm[Hg] [facility] 10-12-2023 15:00-0400 Hourly Rounding Regi [facility] 10-12-2023 15:00-0400 Promise to Return Regi [facility]enst[facility] 10-12-2023 14:00-0400 Hourly Rounding Regi [facility] 10-12-2023 14:00-0400 Promise to Return Regi [facility] 10-12-2023 13:00-0400 Hourly Rounding Regi [facility] 10-12-2023 13:00-0400 Promise to Return Regi [facility] 10-12-2023 11:28-0400 Heart rate 93 /min Regi [facility] 10-12-2023 11:28-0400 SaO2% (BldA) [Mass fraction] 88 % Regi [facility] 10-12-2023 11:27-0400 Diastolic blood pressure 60 mm[Hg] Regi [facility] 10-12-2023 11:27-0400 Mean blood pressure 73 mm[Hg] Regi [facility] 10-12-2023 11:27-0400 Systolic blood pressure 99 mm[Hg] Regi [facility] 10-12-2023 11:26-0400 Body temperature 98.06 [degF] Regi [facility] 10-12-2023 08:51-0400 Diastolic blood pressure 67 mm[Hg] Regi [facility] 10-12-2023 08:51-0400 Heart rate 92 /min Regi [facility] 10-12-2023 08:51-0400 Systolic blood pressure 116 mm[Hg] Regi [facility] 10-12-2023 08:19-0400 Heart rate 86 /min Regi [facility] 10-12-2023 08:19-0400 Respiratory rate 18 /min Regi [facility] 10-12-2023 08:00-0400 Heart rate 85 /min Regi [facility] 10-12-2023 08:00-0400 SaO2% (BldA) [Mass fraction] 98 % Regi [facility] 10-12-2023 07:56-0400 SaO2% (BldA) [Mass fraction] 97 % Regi [facility] 10-12-2023 07:55-0400 Diastolic blood pressure 67 mm[Hg] Regi [facility] 10-12-2023 07:55-0400 Mean blood pressure 83 mm[Hg] Regi [facility] 10-12-2023 07:55-0400 Systolic blood pressure 116 mm[Hg] Regi [facility] 10-12-2023 07:55-0400 Body temperature 97.52 [degF] Regi [facility] 10-12-2023 04:37-0400 Respiratory rate 18 /min Regi [facility] 10-12-2023 03:10-0400 Body temperature 98.06 [degF] Regi [facility] 10-12-2023 03:10-0400 Mean blood pressure 93 mm[Hg] Regi [facility] 10-11-2023 08:49-0400 Heart rate 82 /min Regi [facility] 10-11-2023 05:08-0400 Heart rate 87 /min [facility]i [facility] 10-11-2023 05:00-0400 Blood Pressure Location Regi [facility] 10-11-2023 05:00-0400 Body temperature 97.7 [degF] Regi [facility] 10-11-2023 00:00-0400 Body temperature 97.52 [degF] Rgei [facility] 10-10-2023 08:33-0400 Heart rate 98 /min Regi [facility] 10-10-2023 00:12-0400 Blood Pressure Location Regi [facility] 10-10-2023 00:12-0400 Mean blood pressure 78 mm[Hg] Regi [facility] 10-09-2023 19:31-0400 Blood Pressure Location Regi [facility] 10-09-2023 18:25-0400 Mean blood pressure 108 mm[Hg] Regi [facility] 10-09-2023 18:25-0400 Respiratory rate 17 /min Regi [facility] 10-09-2023 18:15-0400 Mean blood pressure 101 mm[Hg] Regi [facility] 10-09-2023 18:15-0400 Respiratory rate 13 /min Regi [facility] 10-09-2023 18:10-0400 Respiratory rate 15 /min Regi [facility] 10-09-2023 04:00-0400 Body temperature 97.52 [degF] Regi [facility] 10-08-2023 18:41-0400 Heart rate 124 /min Regi [facility] 10-08-2023 18:27-0400 Heart rate 122 /min Regi [facility] 09-10-2023 09:34-0400 Body height 158.75 cm [facility] 09-10-2023 09:34-0400 Body mass index (BMI) [Ratio] 26.6 kg/m2 [facility] 09-10-2023 09:34-0400 Body weight 67.3 kg [facility] 09-10-2023 09:34-0400 Diastolic blood pressure 72 mm[Hg] [facility] 09-10-2023 09:34-0400 Heart rate 76 /min [facility] 09-10-2023 09:34-0400 Systolic blood pressure 122 mm[Hg] [facility] 10-16-2022 09:00-0400 Body height 158.75 cm Ximena Astudillo Other [employer] Other 10-16-2022 09:00-0400 Body mass index (BMI) [Ratio] 27.72 kg/m2 Ximena Astudillo Other [employer] Other 10-16-2022 09:00-0400 Body weight 69.85 kg Ximena Astudillo Other [employer] Other 10-16-2022 09:00-0400 Diastolic blood pressure 70 mm[Hg] Ximena Astudillo Other [employer] Other 10-16-2022 09:00-0400 Systolic blood pressure 132 mm[Hg] Ximena Astudillo Other [facility] [employer] Other 11-30-2021 08:09-0400 Diastolic blood pressure 92 mm[Hg] Lemus SALAM [facility] 11-30-2021 08:09-0400 Heart rate 86 /min Lemus SALAM [facility] 11-30-2021 08:09-0400 Systolic blood pressure 170 mm[Hg] Lemus SALAM [facility] Encounters Encounter Date Encounter Type Care Provider Facility Start: 06-05-2024 End: 06-05-2024 ambulatory [facility] Work Phone: Start: 06-05-2024 End: 06-05-2024 Patient encounter procedure [facility] Work Phone: Start: 04-21-2024 End: 04-21-2024 Patient encounter procedure [facility] Work Phone: Start: 04-14-2024 Non-patient / Non-visit [facility] Work Phone: Start: 04-07-2024 End: 04-07-2024 Patient encounter procedure [facility] Work Phone: Start: 03-12-2024 Non-patient / Non-visit [facility] Work Phone: Start: 01-29-2024 End: 01-29-2024 ambulatory [facility] Work Phone: Start: 01-29-2024 End: 01-29-2024 Patient encounter procedure [facility] Work Phone: Start: 11-28-2023 End: 11-28-2023 ambulatory [facility] Not Available Start: 11-09-2023 Patient encounter procedure Andrea Alonso APRN.HUMAN RESOURCES SAFETY MANAGER Work Phone: [facility] Start: 11-09-2023 Progress Note Andrea MCLEAN RN.HUMAN RESOURCES SAFETY MANAGER Work Phone: [facility] Start: 11-07-2023 End: 11-07-2023 ambulatory [facility] Not Available Start: 11-05-2023 Patient encounter procedure Andrea Alonso APRN.HUMAN RESOURCES SAFETY MANAGER Work Phone: [facility] Start: 11-05-2023 Progress Note Andrea MCLEAN RN.HUMAN RESOURCES SAFETY MANAGER Work Phone: [facility] Start: 10-29-2023 Patient encounter procedure Andrea Alonso APRN.HUMAN RESOURCES SAFETY MANAGER Work Phone: [facility] Start: 10-29-2023 Progress Note Andrea MCLEAN RN.HUMAN RESOURCES SAFETY MANAGER Work Phone: [facility] Start: 10-25-2023 Patient encounter procedure Andrea Alonso CUSTOMER ACCOUNT TECHNICIAN.HUMAN RESOURCES SAFETY MANAGER Work Phone: [facility] Start: 10-25-2023 Progress Note Andrea MCLEAN RN.HUMAN RESOURCES SAFETY MANAGER Work Phone: [facility] Start: 10-23-2023 Patient encounter procedure Andrea Alonso APRN.HUMAN RESOURCES SAFETY MANAGER Work Phone: [facility] Start: 10-23-2023 Progress Note Andrea MCLEAN RN.HUMAN RESOURCES SAFETY MANAGER Work Phone: [facility] Start: 10-23-2023 End: 10-23-2023 ambulatory CHANA LEMONS Not Available Start: 10-18-2023 Patient encounter procedure Andrea Alonso CUSTOMER ACCOUNT TECHNICIAN.HUMAN RESOURCES SAFETY MANAGER Work Phone: [facility] Start: 10-18-2023 Progress Note Andrea MCLEAN RN.HUMAN RESOURCES SAFETY MANAGER Work Phone: [facility] Start: 10-15-2023 Patient encounter procedure Itri Kisha Amilcar Work Phone: [facility] Start: 10-15-2023 Progress Note Itri A Amilcar Work Phone: [facility] [place] [facility] Start: 10-08-2023 Evaluation and management of inpatient Regi Trang. Art Facility:[facility] Start: 10-08-2023 End: 10-12-2023 Evaluation and management of inpatient Regi Cordova Facility:[facility] Start: 10-08-2023 Emergency department patient visit Rigo Anderson Facility:[facility] Start: 10-08-2023 End: 10-12-2023 Evaluation and management of inpatient Regi Trang. [facility] Start: 09-10-2023 End: 09-10-2023 ambulatory [facility] Work Phone: Start: 09-10-2023 End: 09-10-2023 Patient encounter procedure [facility] Work Phone: Start: 08-08-2023 Non-patient / Non-visit [facility] Physician [facility] [employer] Work Phone: Start: 01-22-2023 End: 01-22-2023 ambulatory Ximena Astudillo Other [employer] Other Start: 01-22-2023 Telephone encounter Ximena Astudillo [facility] Start: 10-18-2022 End: 10-18-2022 ambulatory Ximena Astudillo Other [employer] Other Start: 10-18-2022 Telephone encounter Ximena Baudilio [facility] Start: 10-17-2022 End: 10-17-2022 ambulatory Ximena Astudillo Other [employer] Other Start: 10-17-2022 Telephone encounter Ximena Astudillo [facility] Start: 10-16-2022 End: 10-16-2022 ambulatory Ximena Astudillo Other [employer] Other Start: 10-16-2022 Office outpatient visit 25 minutes Ximena Astudillo [facility] Start: 08-19-2022 End: 08-19-[address] XIMENA ASTUDILLO Facility:[facility] Start: 05-10-2022 End: 05-10-[address] XIMENA ASTUDILLO Facility:[facility] Start: 01-19-2022 End: 01-19-[address] XIMENA ASTUDILLO Facility:[facility] Start: 11-30-2021 End: 11-30-2021 Patient encounter procedure Mariah HERNANDEZ [facility] Start: 11-04-2021 End: 11-04-2021 Patient encounter procedure Mariah JIMENEZAM [facility] Start: 10-18-2021 End: 10-19-[address] XIMENA ASTUDILLO Facility:[facility] Start: 09-27-2021 End: 09-28-[address] XIMENA ASTUDILLO Facility:[facility] Start: 09-23-2021 End: 09-23-[address] XIMENA ASTUDILLO Facility: Start: 09-21-2021 Patient encounter procedure Andrea Alonso APRN.HUMAN RESOURCES SAFETY MANAGER Work Phone: [facility] Start: 09-21-2021 Progress Note Andrea MCLEAN RN.HUMAN RESOURCES SAFETY MANAGER Work Phone: [facility] Department Start: 09-16-2021 Patient encounter procedure Andrea Alonso APRN.HUMAN RESOURCES SAFETY MANAGER Work Phone: [facility] Start: 09-16-2021 Progress Note Andrea MCLEAN RN.HUMAN RESOURCES SAFETY MANAGER Work Phone: [facility] Department Start: 09-14-2021 Patient encounter procedure Andrea Alonso APRN.HUMAN RESOURCES SAFETY MANAGER Work Phone: [facility] Start: 09-14-2021 Progress Note Andrea MCLEAN RN.HUMAN RESOURCES SAFETY MANAGER Work Phone: [facility] Department Start: 09-12-2021 Patient encounter procedure Itri Kisha Amilcar Work Phone: [facility] Start: 09-12-2021 Progress Note Itri A Amilcar Work Phone: [facility] Start: 09-05-2021 End: 09-11-2021 Evaluation and management of inpatient DR LENY MCCULLOUGH . Facility: Start: 07-25-2018 End: 07-25-2018 Patient encounter procedure Ximena Astudillo Facility:[facility] Start: 02-12-2017 End: 02-14-2017 Evaluation and management of inpatient WANDA WHEELER Facility:[facility] Procedures Date Procedure Procedure Detail [...] 01-13-2024 Influenza vaccination Influenza Vaccine (Season Ended) [facility] Start: 2023 Advance Directive Discussion Advance Directive Discussion [facility] Start: 2023 Pneumococcal Vaccine: 65+ (1 of 1 - PCV) Pneumococcal Vaccine: 65+ (1 of 1 - PCV) [facility] Start: 2023 Screening for osteoporosis Bone Density Screening [facility] Start: 05-14-2023 Behavioral Health Screening Behavioral Health Screening [facility] Start: 01-12-2023 Covid-19 Vaccine ( season) Covid-19 Vaccine ( season) [facility] Start: 01-12-2022 Influenza [facility] Start: 08-09-2021 DIABETES SCREEN DIABETES SCREEN [facility] Start: 08-09-2021 Diabetes Screening Diabetes Screening [facility] Start: 2018 RSV Vaccine (1 - 1-dose 60+ series) RSV Vaccine (1 - 1-dose 60+ series) [facility] Start: 2008 SHINGRIX VACCINE (1 of 2) SHINGRIX VACCINE (1 of 2) [facility] Start: 2003 COLOGUARD (FIT-DNA) COLOGUARD (FIT-DNA) [facility] Start: 2003 Colonoscopy COLONOSCOPY [facility] Start: 2003 COLORECTAL CANCER SCREENING COLORECTAL CANCER SCREENING [facility] Start: [address] COLONOGRAPHY [facility] Start: 2003 FECAL OCCULT BLOOD FECAL OCCULT BLOOD [facility] Start: 2003 Lipid panel Lipid Screening [facility] Start: 2003 LIPID SCREEN LIPID SCREEN [facility] Start: 2003 Screening for malignant neoplasm of colon [facility] Start: 2003 SIGMOIDOSCOPY SIGMOIDOSCOPY [facility] Start: 1998 Mammography MAMMOGRAM [facility] Start: 1998 Screening for malignant neoplasm of breast Mammogram Screening [facility] Start: 1988 HPV TESTING HPV TESTING [facility] Start: 1979 PAP TESTING PAP TESTING [facility] Start: 1977 Urine microalbumin profile [facility] Start: 1976 HEPATITIS C SCREENING HEPATITIS C SCREENING [facility] Start: 1976 Hepatitis C screening Hepatitis C Screening [facility] Start: 1976 HIV SCREENING HIV SCREENING [facility] Start: 1976 HIV screening HIV Screening [facility] Start: 1970 Adult depression screening assessment DEPRESSION SCREENING [facility] Start: 1963 COVID-19 VACCINE (#1) COVID-19 VACCINE (#1) [facility] Start: 1963 COVID-19 VACCINE (1) COVID-19 VACCINE (1) [facility] Comprehensive metabo lic 2000 panel - Serum or Plasma [facility] Microalbumin [Mass/volume] in Urine [facility] XR Chest 2 Views [facility] Immunizations Immunization Date Immunization Notes Care Provider Fa cility 01-29-2024 Pneumococcal Conjuga te Vaccine, 20 valent [facility] Payers Date Payer Category Payer Medicaid [facility] MEDICAID MYC ARE [facility] MEDICAID [id number] 2023-Present [phone] [address] [place] [address] Medicaid [id number] 2023 Medicare [facility] MEDICARE [facility] DUAL COMPLETE HMO POS SNP [id number] 2023-Present [phone] [address] [place] [address] Medicare [id number] 2023 Private Health Insurance [id number] 2018 Self-pay 2018 Medicaid [facility] MEDICAID [facility] COMMUNITY PLAN MEDICAID [id number] 2018-Present [phone] [address] [place] [id number] Medicaid [id number] 1959 Medicaid [id number] 1959 Unknown [id number] 1958 Unknown [id number] 2.16.840.1.445460.3.579.2. 593 1958 Unknown [id number] 2.16.840.1.779997.3.579.2. 593 1958 Unknown [id number] 2.16.840.1.727588.3.579.2. 593 1958 Unknown [id number] 2.16.840.1.517480.3.579.2. 593 1958 Unknown [id number] 2.840.1.398589.3.579.2. 593 1958 Unknown [id number] 2.16.840.1.823740.3.579.2. 593 1958 Unknown [id number] 2.16.840.1.734341.3.579.2. 593 1958 Unknown [id number] 2.16.840.1.542608.3.579.2. 727 1958 Unknown [id number] 2.840.1.494390.3.579.2. 727 1958 Unknown [id number] 2.16.840.1.252749.3.579.2. 727 1958 Unknown [id number] 2.16.840.1.876796.3.579.2. 727 1958 Unknown [id number] 2.16.840.1.930233.3.579.2. 727 1958 Unknown [id number] 2.16.840.1.144948.3.579.2. 727 1958 Unknown [id number] 2.16.840.1.825854.3.579.2. 727 1958 Unknown [id number] 2.16.840.1.781658.3.579.2. 72 1958 Unknown [id number] 2.16.840.1.156022.3.579.2. 1958 Unknown [id number] 2.16.840.1.241784.3.579.2. 72 1958 Unknown [id number] 2.16.840.1.027753.3.579.2. 125 1958 Unknown [id number] 2.16.840.1.288358.3.579.2. 1258 1958 Unknown [id number] 2.16.840.1.686832.3.579.2. 1258 1958 Unknown [id number] 2.16.840.1.921012.3.579.2. 1258 1958 Unknown [id number] 2.16.840.1.256825.3.579.2. 1258 1958 Unknown [id number] 2.16.840.1.530121.3.579.2. 1258 1958 Unknown [id number] 2.16.840.1.770305.3.579.2. 1258 1958 Unknown [id number] 2.16.840.1.897587.3.579.2. 125 1958 Unknown [id number] 2.16.840.1.763340.3.579.2. 125 Unknown [id number] 2.16.840.1.587790.3.579.2. 531 Social History Date Type Detail Facility Start: 08-09-2018 [facility] Start: 08-09-2018 Tobacco use and exposure Smokeless tobacco non-user [facility] Start: 1960 Sex Assigned At Not on file C [facility] Start: 11-03-2021 End: 11-30-2021 Tobacco smoking status Light tobacco smoker (finding) [facility] Start: 09-09-2018 End: 04-20-2020 Sex Assigned At Female [facility] Start: 10-16-2022 End: 06-03-2024 Tobacco smoking status NHIS Smoker (finding) [facility] Start: 1960 Sex Assigned At Female F [facility] Start: 09-09-2018 End: 04-20-2020 History of Social function [facility] National Score (1-100), lower number is lower risk Not on file [facility] Start: 06-05-2024 Sex Female (finding) [facility] Procedure Code Equipment Code Equipment [...] Assessment Result Facility 10-08-2023 Functional Status No [facility] 10-08-2023 Functional Status [facility] 11-30-2021 Functional Status N/A [facility] Clinical Notes 03-04-2018 to [...] pulmonary disease) acute June 05, 2024 10:05am [facility] Work Phone: 1(578) 396-136606-28-2024 History of Present illness Narrative* Andrea Alonso APRN.CNS - 11/09/2023 12:00 AM EDT [facility] NOTE NAME: CATHERINE ADAMSON [facility] NO.: [id number] DATE OF SERVICE: 11/09/2023 ATTENDING PHYSICIAN: VERENA Wallis [facility] Discharge Visit. DATE OF ADMISSION: October 12, 2023. DATE OF DISCHARGE: October. REASON FOR VISIT: The patient is a resident of [facility]. This is a discharge visit for fracture radius and ulna and fracture of the right femur, subsequent encounter with other medical concerns. The patient was admitted to [facility] from [facility] after fall, resulting in fracture of the right radius and ulna, and fracture of the right femur. The patient's stay at [facility] did have its events. The patient did [...] 31 minutes. DICTATED BY: VERENA Wallis/AQT JOB# [id number] [facility] documented in this encounterSum[facility]-2024 NoteHNO ID: [id number] Author: ANDREA ALONSO APRN.VERENA Service: ? Author Type: Nurse Specialist Type: Progress Notes Filed: 11/12/2023 07:28 Note Text: [facility] NOTE NAME: CATHERINE ADAMSON [facility] NO.: [id number] DATE OF SERVICE: 11/09/2023 ATTENDING PHYSICIAN: VERENA Wallis [facility] Discharge Visit. DATE OF ADMISSION: October 12, 2023. DATE OF DISCHARGE: October. REASON FOR VISIT: The patient is a resident of [facility]. This is a discharge visit for fracture radius and ulna and fracture of the right femur, subsequent encounter with other medical concerns. The patient was admitted to [facility] from [facility] after fall, resulting in fracture of the right radius and ulna, and fracture of the right femur. The patient's stay at [facility] did have its events. The patient did [...] 31 minutes. DICTATED BY: VERENA Wallis/LUIS JOB# [id number] [facility] Elect (more content not included)...[facility]06-24-2024 History of Present illness Narrative* Andrea Alonso APRN.VERENA - 11/05/2023 12:00 AM EDT [facility] NOTE NAME: [facility] NO.: [id number] DATE OF SERVICE: 11/05/2023 ATTENDING PHYSICIAN: VERENA Wallis [facility] Chart Note REASON FOR VISIT: The patient is a resident of [facility]. This is a skilled visit for [...] chloride daily. DICTATED BY: VERENA Wallis/AQT JOB# [id number] [facility] documented in this encounterSumma [facility]06-[facility]-2024 NoteHNO ID: [id number] Author: ANDREA ALONSO APRN.VERENA Service: ? Author Type: Nurse Specialist Type: Progress Notes Filed: 11/07/2023 07:02 Note Text: [facility] NOTE NAME: CATHERINE ADAMSON [facility] NO.: [id number] DATE OF SERVICE: 11/05/2023 ATTENDING PHYSICIAN: VERENA Wallis [facility] Chart Note REASON FOR VISIT: The patient is a resident of [facility]. This is a skilled visit for [...] chloride daily. DICTATED BY: VERENA Wallis/SURINDERT JOB# [id number] [facility]06-17-2024 History of Present illness Narrative* Andrea Alonso, ROSETTA.VERENA - 10/29/2023 12:00 AM EDT [facility] NOTE NAME: CATHERINE ADAMSON [facility] NO.: [id number] DATE OF SERVICE: 10/29/2023 ATTENDING PHYSICIAN: VERENA Wallis [facility] Chart Note REASON FOR VISIT: The patient is a resident of [facility]. This is a skilled visit for fracture of the right radius and ulna and fracture of the right femur, subsequent encounter with routine healing. Upon entering the room, found the patient calm, alert, lying in semi-Saenz's position. The patient does not appear to be in distress or discomfort at this time. It has been recognized by Court Abstractor that insurances will be cutting the patient, [...] sodium chloride. DICTATED BY: VERENA Wallis/SURINDERT JOB# [id number] [facility] documented in this encounterSumma Health [facility]06-17-2024 NoteHNO ID: [id number] Author: ANDREA ALONSO APRN.HUMAN RESOURCES SAFETY MANAGER Service: ? Author Type: Nurse Specialist Type: Progress Notes Filed: 11/02/2023 07:03 Note Text: [facility] NOTE NAME: CATHERINE ADAMSON [facility] NO.: [id number] DATE OF SERVICE: 10/29/2023 ATTENDING PHYSICIAN: VERENA Wallis [facility] Chart Note REASON FOR VISIT: The patient is a resident of [facility]. This is a skilled visit for fracture of the right radius and ulna and fracture of the right femur, subsequent encounter with routine healing. Upon entering the room, found the patient calm, alert, lying in semi-Saenz's position. The patient does not appear to be in distress or discomfort at this time. It has been recognized by Court Abstractor that insurances will be cutting the patient, [...] sodium chloride. DICTATED BY: VERENA Wallis/AQT JOB# [id number] [facility]06-13-2024 History of Present illness Narrative* Andrea Alonso APRN.VERENA - 10/25/2023 12:00 AM EDT [facility] NOTE NAME: CATHERINE ADAMSON [facility] NO.: [id number] DATE OF SERVICE: 10/25/2023 ATTENDING PHYSICIAN: VERENA Wallis [facility] Chart Note REASON FOR VISIT: The patient is a resident of [facility]. This is a skilled visit for [...] this walker. DICTATED BY: VERENA Wallis/LUIS JOB# [id number] [facility] documented in this encounterSumma Health [facility]06-13-2024 NoteHNO ID: [id number] Author: ANDREA ALONSO APRN.HUMAN RESOURCES SAFETY MANAGER Service: ? Author Type: Nurse Specialist Type: Progress Notes Filed: 10/29/2023 07:07 Note Text: [facility] NOTE NAME: CATHERINE ADAMSON [facility] NO.: [id number] DATE OF SERVICE: 10/25/2023 ATTENDING PHYSICIAN: VERENA Wallis [facility] Chart Note REASON FOR VISIT: The patient is a resident of [facility]. This is a skilled visit for [...] this walker. DICTATED BY: VERENA Wallis/AQT JOB# [id number] [facility]06-11-2024 History of Present illness Narrative* Andrea Alonso APRN.VERENA - 10/23/2023 12:00 AM EDT [facility] NOTE NAME: CATHERINE ADAMSON [facility] NO.: [id number] DATE OF SERVICE: 10/23/2023 ATTENDING PHYSICIAN: VERENA Wallis [facility] Chart Note REASON FOR VISIT: The patient is a resident of [facility]. This is a skilled visit for [...] chloride tab. DICTATED BY: VERENA Wallis/LUIS JOB# [id number] [facility] documented in this encounterSumma Health W[facility]06-11-2024 NoteHNO ID: [id number] Author: ANDREA ALONSO APRN.VERENA Service: ? Author Type: Nurse Specialist Type: Progress Notes Filed: 10/26/2023 07:07 Note Text: [facility] NOTE NAME: CATHERINE ADAMSON [facility] NO.: [id number] DATE OF SERVICE: 10/23/2023 ATTENDING PHYSICIAN: Andrea Alonso, VERENA [facility] Chart Note REASON FOR VISIT: The patient is a resident of [facility]. This is a skilled visit for [...] chloride tab. DICTATED BY: VERENA Wallis/AQT JOB# [id number] [facility]06-06-2024 History of Present illness Narrative* Andrea Alonso APRN.VERENA - 10/18/2023 12:00 AM EDT [facility] NOTE NAME: CATHERINE ADAMSON [facility] NO.: [id number] DATE OF SERVICE: 10/18/2023 ATTENDING PHYSICIAN: VERENA Wallis [facility] Chart Note REASON FOR VISIT: The patient is a resident of [facility]. This is a skilled visit for [...] normal range. DICTATED BY: VERENA Wallis/LUIS JOB# [id number] [facility] documented in this encounterSumma Health W[facility]06-06-2024 NoteHNO ID: [id number] Author: ANDREA ALONSO APRN.VERENA Service: ? Author Type: Nurse Specialist Type: Progress Notes Filed: 10/22/2023 07:58 Note Text: [facility] NOTE NAME: CATHERINE ADAMSON [facility] NO.: [id number] DATE OF SERVICE: 10/18/2023 ATTENDING PHYSICIAN: VERENA Wallis [facility] Chart Note REASON FOR VISIT: The patient is a resident of [facility]. This is a skilled visit for [...] normal range. DICTATED BY: VERENA Wallis/SURINDERT JOB# [id number] [facility]06-03-2024 NoteMicrobiology PROCEDURE: Blood Culture Charcoal [R1] SOURCE: Blood BODY SITE: Hand L COLLECTED DATE/TIME: 10/08/2023 15:28 EDT RECEIVED DATE/TIME: 10/08/2023 15:39 EDT START DATE/TIME: 10/08/2023 15:39 EDT FREE TEXT SOURCE: Rigo Anderson DO, DO, John FINAL REPORTS Final Report [] Verified Date/Time: 10/15/2023 18:00 EDT No growth at 7 days. Performing Locations R1: This test was performed at: [facility], [address] [place] [address], [address] [place] [address], [address] [place], [place] [address]Comment on above:Performed By: #### [id number] #### [facility] [address] [place] [address] [phone] NoteMicrobiology PROCEDURE: Blood Culture Charcoal [R1] SOURCE: Blood BODY SITE: Arm R COLLECTED DATE/TIME: 10/08/2023 15:35 EDT RECEIVED DATE/TIME: 10/08/2023 15:39 EDT START DATE/TIME: 10/08/2023 15:39 EDT FREE TEXT SOURCE: Rigo Anderson DO, DO, John FINAL REPORTS Final Report [] Verified Date/Time: 10/15/2023 18:00 EDT No growth at 7 days. Performing Locations R1: This test was performed at: [facility], [address] [place] [address], [address] [place] [address], [address] [place], [place] [address]Comment on above:Performed By: #### [id number] #### [facility] [address] [place] [address] [phone] History of Present illness Narrative* Lydia Calderón - 10/15/2023 12:00 AM EDT [facility] NOTE NAME: CATHERINE ADAMSON [facility] NO.: [id number] DATE OF SERVICE: 10/15/2023 ATTENDING PHYSICIAN: Lydia Calderón MD [facility] NEW PATIENT HISTORY AND PHYSICAL: HISTORY OF PRESENT ILLNESS: The patient is a 63-year-old female, was admitted to us from [facility] with the diagnosis of status post surgical [...] therapy. DICTATED BY: MD PEYTON Burch/LUIS JOB# [id number] [facility] documented in this encounterSumma Health W[facility]06-03-2024 NoteHNO ID: [id number] Author: LYDIA CALDERÓN, ? Service: ? Author Type: Physician Type: Progress Notes Filed: 10/17/2023 11:13 Note Text: [facility] NOTE NAME: CATHERINE ADAMSON [facility] NO.: [id number] DATE OF SERVICE: 10/15/2023 ATTENDING PHYSICIAN: Lydia Calderón MD [facility] NEW PATIENT HISTORY AND PHYSICAL: HISTORY OF PRESENT ILLNESS: The patient is a 63-year-old female, was admitted to us from [facility] with the diagnosis of status post surgical [...] Monitor fl (more content not included)...[facility]06-02-2024 [place] [address] CATHERINE ADAMSON Date of : 1960 63 Years Female Attending Art GARCIA, Regi Cosetllo. Date of Admission 10/08/2023 Date of Discharge [...] IV, Stop: 11/08/23 18:15:00 (more content not included)...[facility]:Result Comment: Electronically Signed By: Mckenzie Lerma PA-C\.br\Date and Time Signed: 10/12/23 11:39 EDT\.br\Electronically Co-Signed By: Regi Cordova MD\.br\Date and Time Co-Signed: 10/14/23 12:17 [id number] Hospital Discharge instructions Patient Education 10/12/2023 11:32:57 [...] provider. Document Revised: 07/19/2020 Document Reviewed: 07/19/2020 [employer] Patient Education 2022 [employer] 10/12/2023 11:32:55 How to Use an [...] as possible. If the spirometer includes a high school assistant football coach indicator, use this to guide you [...] provider. Document Revised: 07/19/2020 Document Reviewed: 07/19/2020 [employer] Patient Education 2022 [employer] 10/12/2023 09:52:37 Hip Fracture Hip Fracture [...] your health care provider. General instructions Take aduf-nka-nsczpxk and prescription medicines only as told by [...] provider. Document Revised: 12/31/2020 Document Reviewed: 12/31/2020 [employer] Patient Education 2021 [employer] 10/12/2023 09:52:23 Colles Fracture Colles Fracture A [...] by your health care provider. Medicines Take pqsr-xvq-ojrtqxe and prescription medicines only as told by your health care provider. Ask your health care provider if the medicine prescribed to you: ?Requires you to avoid driving or using machinery. ?Can cause constipation. You may need to take these actions to prevent or treat constipation: ?Drink enough fluid to keep your urine pale yellow. ?Take ubqv-aje-tsooipz or prescription medicines. ?Eat foods that are [...] provider. Document Revised: 08/09/2020 Document Reviewed: 08/09/2020 [employer] Patient Education 2022 [employer] Follow Up Care 10/08/2023 11:57:47 With:Chana Lemons Address: [address] [place], [place] [id number] Business (1) When: Unknown Comments:Call for followup appointment 2-3 weeks for staple removal right hip and recheck right wrist and hip. With:XIMENA ASTUDILLO Address: [address] [place] [phone] Business (1) When: Unknown [facility]05-31-2024 NoteBedside report [facility] Discharge summary, SBAR, med rec, and scripts faxed over to facility. Mini chart and rest of original paperwork to be sent with [facility] horse farm manager when patient is picked up around 1pm. Marci DICKINSON updated on POC.[facility]05-30-2024 Evaluation + Plan noteExtracted from: Title:Right [...] 2022 Author:Gary Álvarez Jr, DO Date:10/09/23 Plan [place] [employer] Anesthesi[employer] (ASA) physical status classification: [...] mL/kg bolus based on ideal body weight. [facility]05-30-2024 Cammy Cyr PA-C, dictating for Chana Lemons D.O. PROGRESS NOTE: 10/10/2023 A 63-year-old female who was in Room 320 this morning. Catehrine is postop day one from right wrist [...] wrist and hip. Adolfo Gauthier Dictated: 10/10/2023 [id number] Transcribed: 10/10/2023[facility] HospitalComment on above:Result Comment: Electronically Signed By: Chana Lemons DO\.br\Date and Time Signed: 10/11/23 07:07 [id number] NotePT Evaluation completed with an AMPA score of 02/04. Pt requires Mod/MaxA x 2 to sit EOB and neededMod A x 2 to stand. Pt was able to rest on platform walker, but unable to ambulate at this time due to pain. Will follow daily, but SNF recommended as pt unsafe to return home [facility]05-28-2024 NoteHOSPITAL REGULATIONS: All Positive and Important [...] on postoperative day one pending laboratory studies. Court Abstractor for rehabi litation placement, physical therapy for postoperative protocol. Consent form is signed and witnessed. We discussed the pros, cons, risks, benefits of both procedures. These will be done concomitantly together in the same Operating Room setting. This has the potential for infec (more content not included)...[facility]:Result Comment: Electronically Signed By: Chana Lemons DO\Date and Time Signed: 10/09/23 16:40 [id number] Note TRAUMA CONSULT / H&P Patient Name: CATHERINE ADAMSON Admission Date: 10/08/2023 11:57:18 Chief Complaint: Fall from standing Patient seen and examined on 10/08/2023 14:25:30 BASIC INJURY INFORMATION: Level of activation: Trauma Consult Mode of transport: [facility] Mechanism of injury: Fall Complicating [...] palpitations, no? edema. [place] (more content not included)...[facility]: Result Comment: Electronically Signed By: Jamison HAGAN, Aubrey De La Garza\.br\Date and Time Signed: 10/08/23 15:36 EDT\.br\Electronically Co-Signed By: Art GARCIA, Regi Alvarez\.br\Date and Time Co-Signed: 10/09/23 10:21 [id number] Evaluation note* Encounter Date Diagnosis Assessment Notes Treatment Notes Treatment Clinical Notes Oct, COPD, moderate (ICD-10 - J44.9) [facility] Other 06-05-2023 Evaluation note* Encounter Date Diagnosis [...] (ICD-10 - E78.5) chronic - recheck labs. [employer] Other 05-11-2022 History of Present illness Narrative* Andrea Alonso APRN.HUMAN RESOURCES SAFETY MANAGER - 09/21/2021 12:00 AM EDT [facility] NOTE NAME: NANCY ADAMSONLIZ NO.: [id number] DATE OF SERVICE: 09/21/2021 [facility] DATE OF : 1960 REASON FOR VISIT: The patient is a resident of [facility]. This is a discharge visit for multiple right-sided rib fractures with traumatic pneumothorax, subsequent encounter. The patient was sent from [facility] to [facility] for therapy services after patient had a fall due to dizziness, lightheadedness. The patient's stay at [facility] was without its event. The patient states she has no complaints of going home. States does have support of family and friends at home and has no concerns of going home. DATE OF ADMISSION: September 11, 2021. DATE OF DISCHARGE: September 21, 2021. HISTORY OF PRESENT ILLNESS FROM ADMISSION: The patient is a 61-year-old female who is admitted to us from [facility] with a diagnosis of recurrent syncopal [...] or syncopal episodes since being admitted to [facility]. The patient states does have a cough [...] 31 minutes. DICTATED BY: ELSY Wallis/Levi JOB# [id number] cc:[facility] documented in this encounterSum[facility]05-[facility] History of Present illness Narrative* Andrea Alonso APRN.CNS - 09/16/2021 12:00 AM EDT [facility] NOTE NAME: KRYSTLE ADAMSONELVER NO.: [id number] DATE OF SERVICE: 09/16/2021 [facility] DATE OF : 1960 REASON FOR VISIT: The patient is a resident of [facility]. This is a skilled visit for [...] this visit. DICTATED BY: ELSY Wallis JOB# [id number] cc:[facility] documented in this encounterSumma Health Wad[facility]05-04-2022 History of Present illness Narrative* Andrea Alonso APRN.CNS - 09/14/2021 12:00 AM EDT [facility] NOTE NAME: KANE ADAMSON.: [id number] DATE OF SERVICE: 09/14/2021 [facility] DATE OF : 1960 REASON FOR VISIT: The patient is a resident of [facility]. This is a skilled visit for syncopal [...] had no syncopal episodes since being at [facility]. The patient states nonausea, and has been [...] has had no syncopalepisodes since being at [facility]. The patient is currently under fall precautions. [...] and atorvastatin. DICTATED BY: ELSY Wallis/Levi JOB# [id number] cc:[facility] documented in this encounterSumma Health Wad[facility]05-02-2022 History of Present illness Narrative* Dorenei Kisha Mailcar - 09/12/2021 12:00 AM EDT [facility] NOTE NAME: CAIN ADAMSONYOLANDA NO.: [id number] DATE OF SERVICE: 09/12/2021 [facility] DATE OF : 1960 NEW PATIENT HISTORY AND PHYSICAL HISTORY OF PRESENT ILLNESS: The patient is a 61-year-old female who was admitted to us from [facility] with the diagnoses of recurrent syncopal [...] therapy. DICTATED BY: MD PEYTON Ag/Levi JOB# [id number] cc:[facility] documented in this encounterSumma Health Wad[facility]04-25-2022 NotePROCEDURE: XR KNEE RT 4V or > COMPARISON: None. HISTORY: MUSCLE WEAKNESS (GENERALIZED) FINDINGS: BONES:No acute fracture or dislocation. Moderate to severe tricompartmental osteoarthropathy with extensive marginal osteophyte formation. Severe narrowing of the medial joint space. SOFT TISSUES:Negative. No visible soft tissue swelling. EFFUSION:Moderate joint effusion OTHER: Negative. IMPRESSION: Severe osteoarthritis with joint effusion Electronically authenticated by: PAWAN GEORGE Date: 2021-09-05 13:50[id number] Evaluation note* Diagnosis Onset Date Resolution Status Essential (primary) hypertension March 04, 2018 acute [facility] Work Phone: Evaluation + Plan note Future Appointments Appointment Date:11/30/2021 08:15:00 AM Scheduled Provider:Mariah HERNANDEZ MD Location:[facility] Digestive Health Appointment Type:[facility] Future Appointments Appointment Date:01/04/2022 12:50:00 PM Scheduled Provider: Location:[facility] Surgical Services Appointment Type:Surgery FT Future Scheduled Tests Laboratory* Hepatic Function Panel 11/30/21 [facility] Digestive Health Evaluation noteNo InformationN[employer] Other Evaluation noteNo assessment information available [facility] Work Phone: Hismigh general Narrative - Reported* Type Description Date Medical History COPD Medical History CAD/VT Medical History HYPONATREMIA Medical History HTN Medical History OA Medical History HEART ATTACK Surgical History RIGHT KNEE ATHROSCOPIC SURGERY Surgical History CARDIAC STENT 02/2017 Hospitalization History SEE ABOVE Hospitalization History ABNORMAL ELECTOLYTES 12/13 018 [facility] Other Hospital course Narrative No data available for this section [facility] Dis[facility] instructions No data available for this section [facility]Progress note No data available for this section [facility] Summary Purpose Family History Relationship Condition Age [...] section and content) DATE CREATED AUTHOR 11/06/2017 [facility] DATE CREATED AUTHOR AUTHOR'S ORGANIZ ATION 07/27/2018 [facility] DATE CREATED AUTHOR AUTHOR'S ORGANIZ ATION 08/22/2022 [facility] DATE CREATED AUTHOR AUTHOR'S ORGANIZ ATION 10/08/2023 Pineda [facility] DATE CREATED AUTHOR AUTHOR'S ORGANIZ ATION 10/09/2023 [facility] DATE CREATED AUTHOR AUTHOR'S ORGANIZ ATION 10/10/2023 [facility] DATE CREATED AUTHOR AUTHOR'S ORGANIZ ATION 10/11/2023 [facility] DATE CREATED AUTHOR AUTHOR'S ORGANIZ ATION 10/12/2023 [facility]ined[facility] DATE CREATED AUTHOR AUTHOR'S ORGANIZ ATION 10/14/2023 [facility]ineda [facility] DATE CREATED AUTHOR AUTHOR'S ORGANIZ ATION 10/16/2023 [facility]ined[facility] DATE CREATED AUTHOR AUTHOR'S ORGANIZ ATION 10/31/2023 Pineda Mike [facility] DATE CREATED AUTHOR AUTHOR'S ORGANIZ ATION 11/12/2023 [facility] DATE CREATED AUTHOR AUTHOR'S ORGANIZ ATION 12/01/2023 [facility] EPIC Source Comments (unrecognize d section and content) In the event this informatio n is protected by the Federal Confidentiality of Alcohol and Drug Abuse Patient Records regulations: The Federal rules restrict any use of the information to criminally investigate or prosecute any alcohol or drug abuse patient.[facility] CenterIn the event this information is protected by the Federal Confidentiality of Alcohol and Drug Abuse Patient Records regulations: The Federal rules restrict any use of the information to criminally investigate or prosecute any alcohol or drug abuse patient.[facility] CenterIn the event this information is protected by the Federal Confidentiality of Alcohol and Drug Abuse Patient Records regulations: The Federal rules restrict any use of the information to criminally investigate or prosecute any alcohol or drug abuse patient.[facility] CenterIn the event this information is protected by the Federal Confidentiality of Alcohol and Drug Abuse Patient Records regulations: The Federal rules restrict any use of the information to criminally investigate or prosecute any alcohol or drug abuse patient.[facility] CenterIn the event this information is protected by the Federal Confidentiality of Alcohol and Drug Abuse Patient Records regulations: The Federal rules restrict any use of the information to criminally investigate or prosecute any alcohol or drug abuse patient.[facility] CenterIn the event this information is protected by the Federal Confidentiality of Alcohol and Drug Abuse Patient Records regulations: The Federal rules restrict any use of the information to criminally investigate or prosecute any alcohol or drug abuse patient.[facility] CenterIn the event this information is protected by the Federal Confidentiality of Alcohol and Drug Abuse Patient Records regulations: The Federal rules restrict any use of the information to criminally investigate or prosecute any alcohol or drug abuse patient.[facility] CenterIn the event this information is protected by the Federal Confidentiality of Alcohol and Drug Abuse Patient Records regulations: The Federal rules restrict any use of the information to criminally investigate or prosecute any alcohol or drug abuse patient.[facility] CenterIn the event this information is protected by the Federal Confidentiality of Alcohol and Drug Abuse Patient Records regulations: The Federal rules restrict any use of the information to criminally investigate or prosecute any alcohol or drug abuse patient.[facility] CenterIn the event this information is protected by the Federal Confidentiality of Alcohol and Drug Abuse Patient Records regulations: The Federal rules restrict any use of the information to criminally investigate or prosecute any alcohol or drug abuse patient.[facility] CenterIn the event this information is protected by the Federal Confidentiality of Alcohol and Drug Abuse Patient Records regulations: The Federal rules restrict any use of the information to criminally investigate or prosecute any alcohol or drug abuse patient.[facility] Care Teams (unrecognized sec tion and content) [...] January 29, 2024 End: January 29, 2024 Pick Up And Delivery Driver Relationship Specialty Start Date End Date Judy Baltazar [address] [place] [address] PCP - General Nephrology 07/18/18 Ximena Astudillo MD [address] [place] [id number] [facility] 09/09/18 Team Status: Active Member Role Status Dates Ximena Astudillo MD Primary Care Provider Active Start: August 08, 2023 AUDRA Feliz Attending Provider Active Start : August 08, 2023 Team Status: Inactive Member Role Status Dates Ximena Astudillo MD Primary Care Provide r, Attending Provider Active Start: September 10, 2023 End: September 10, 2023 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 [facility]. provides no warranty or guarantee of the accuracy or completeness of information in this document.
--- NOTE | 2024-06-28 18:23 | PHOTOS ---
rt lateral foot ans ankle area
--- NOTE | 2024-06-28 18:25 | PHOTOS ---
rt lateral calf
--- NOTE | 2024-06-28 18:27 | PHOTOS ---
left lateral ankle
--- NOTE | 2024-06-28 18:35 | PHOTOS ---
rt arm skin tear
--- NOTE | 2024-06-28 18:52 | PC.NURSE ---
pt very drowsy and unable to answer most of any questions asked at this time
[2024-06-28] MEDS: 0.9 % SODIUM CHLORIDE 1,000 ML 100 ML IV (18:53)
--- NOTE | 2024-06-28 19:39 | XR_ITS ---
[address] [address] Patient Name: LAURA ADAMSON MRN: [id number] date: 1960 Sex: F Assigned Patient Location: MS Current Patient Location: Accession/Order Number: [id number] Exam Date: 06/28/2024 19:50 Report Date: 06/28/2024 21:52 At the request of: FRANCESCO CASTELLON Procedure: XR chest 1V EXAM: XR chest 1V , 06/28/2024 HISTORY: respriatory distress COMPARISON: Previous x-ray from 06/28/2024 at 3:03 PM. TECHNIQUE: X-ray of the chest, portable upright AP view. FINDINGS: Cardiac silhouette within normal limits. Mild atherosclerotic calcification of the aortic arch. The lungs and costophrenic angles are clear. No hilar enlargement. Old healed fractures of the right-sided ribs. No acute osseous findings. No significant interval change. XR/XR chest 1V IMPRESSION: No acute cardiopulmonary findings. Electronically authenticated by: YOUNG ROMERO Date: 06/28/2024 21:52
--- NOTE | 2024-06-28 19:59 | ECG_ITS ---
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
[2024-06-28 20:27] LABS: Allen Test POSITIVE (POSITIVE); Base Excess ABG -6.7 mmol/L (-2.0-2.0); HCO3 ABG 21.3 mmol/L (22.0-26.0); Liters per Minute 2; O2 Mode NASAL CANNULA; Oxygen Saturation ABG 96.3 %; PO2 ABG 86.9 mmHg (80.0-100.0); Puncture Site RR
[2024-06-28 20:32] LABS: ABG PCO2 53.9 mmHg (35.0-45.0); pH ABG 7.205 (7.350-7.450)
[2024-06-28] MEDS: ALBUTEROL SULFATE 2.5 MG/3 ML VIAL NEB CNTNEBULIZ (20:43)
[2024-06-28] MEDS: BUDESONIDE 0.5 MG/2 ML AMPULE NEB IH (20:43)
[2024-06-28 20:44] LABS: Bilirubin Urine SMALL (NEGATIVE); Blood Urine SMALL (NEGATIVE); Color Urine YELLOW (YELLOW); Glucose Urine UA NEGATIVE (NEGATIVE); Ketones Urine TRACE mg/dL (NEGATIVE); Leukocyte Esterase Urine SMALL (NEGATIVE); Nitrite Urine POSITIVE (NEGATIVE); Protein Urine 30 mg/dL (NEG/TRACE); Specific Gravity Urine 1.025 (1.005-1.025); Urobilinogen Urine 0.2 EU/dL (0.2-1.0); pH Urine 5.5 (5.0-9.0)
[2024-06-28 20:48] LABS: Clarity Urine SLIGHTLY CLOUDY (CLEAR); Urine Microscopic Indicated YES
[2024-06-28 20:52] LABS: Bacteria Urine LARGE #/HPF (NONE SEEN); Cast Seen? SEEN #/LPF (NONE SEEN); Coarse Granular Casts Urine MODERATE; Crystals Seen? None Seen #/HPF (None Seen); Fine Granular Casts Urine FEW; Hyaline Casts Urine RARE; Mucus Urine NONE SEEN (NONE SEEN); Squamous Epithelial Cell Urine MODERATE #/LPF (NONE/RARE); Urine Culture Indicated YES-FRMC; WBC Urine 75-100 #/HPF (NONE SEEN)
[2024-06-28 20:53] LABS: RBC Urine 0-2 #/HPF (0-2)
[2024-06-28 20:54] LABS: Amphetamine Screen Urine NEGATIVE (NEGATIVE); Barbiturates Screen Urine NEGATIVE (NEGATIVE); Benzodiazepines Screen Urine POSITIVE (NEGATIVE); Buprenorphine Screen Urine NEGATIVE (NEGATIVE); Cannabinoid Screen Urine POSITIVE (NEGATIVE); Cocaine Screen Urine NEGATIVE (NEGATIVE); Methadone Screen Urine NEGATIVE (NEGATIVE); Methamphetamines Screen Urine POSITIVE (NEGATIVE); Opiate Screen Urine NEGATIVE (NEGATIVE); Oxycodone Screen Urine NEGATIVE (NEGATIVE); Phencyclidine Screen Urine NEGATIVE (NEGATIVE); Tricyclic Antidepressant Urine NEGATIVE (NEGATIVE)
--- NOTE | 2024-06-28 22:14 | PM.EN ---
Event Note Event Note: Notified of change in condition with tachycardia and respiratory distress, ABG drawn which shows a PH of 7.2, CO2 58; placed on bipap, urinalysis with drug screen obtained which is positive for benzos, meth, & THC. BNP, troponin, magnesium ordered, added geodon to withdrawal regimen. Chest x?ray did not show any pulmonary vascular congestion, awaiting results of labs before administering diuretic. Will keep IVF at 75 ml/hr to limit chances of fluid overload. Transferred to ICU for further care.
[2024-06-28 22:38] LABS: Magnesium 1.7 mg/dL (1.8-2.4)
[2024-06-28 22:55] LABS: Troponin I High Sensitivity 86.4 pg/mL (4.0-51.3)
[2024-06-29] VITALS (92 sets, daily range): BP systolic 103–132; BP diastolic 71–87; PULSE 96–134; RESP 14; TEMP 36.1–36.8; O2SAT 72–100
[2024-06-29] MEDS: METOPROLOL TARTRATE 5 MG/5 ML VIAL IVP
[2024-06-29] MEDS: LACTATED RINGER'S SOLUTION 1,000 ML 75 ML IV
[2024-06-29 02:00] LABS: Base Excess ABG -6.7 mmol/L (-2.0-2.0); HCO3 ABG 21.3 mmol/L (22.0-26.0); Oxygen Saturation ABG 98.4 %
[2024-06-29 02:01] LABS: Allen Test POSITIVE (POSITIVE); BIPAP Pressure 14/7; Fractionated Inspired Oxygen 30 %; O2 Mode BIPAP; Puncture Site RR; Rate 14
[2024-06-29 02:02] LABS: ABG PCO2 54.8 mmHg (35.0-45.0); pH ABG 7.198 (7.350-7.450)
[2024-06-29] MEDS: MAGNESIUM SULFATE IN WATER 2 GM/50 ML PREMIX IV (02:47)
[2024-06-29 03:19] LABS: Anion Gap 11.8; BUN Creatinine Ratio 9.5; Calcium 7.8 mg/dL (8.5-10.1); Carbon Dioxide 24.1 mmol/L (21.0-32.0); Chloride 104 mmol/L (98-107); Estimated GFR (African America >60 (>=60 mL/min/1.73m^2); Estimated GFR (Non-African Ame >60 (>=60 mL/min/1.73m^2); Glucose 89 mg/dL (74-106); Potassium 3.9 mmol/L (3.5-5.1); Sodium 136 mmol/L (136-145)
[2024-06-29 03:22] LABS: Troponin I High Sensitivity 103.8 pg/mL (4.0-51.3)
[2024-06-29] MEDS: POTASSIUM CHLORIDE IN WATER 10 MEQ/100 ML PREMIX 100 MEQ IV ×4 (04:00→08:01)
[2024-06-29] MEDS: ALBUTEROL SULFATE 2.5 MG/3 ML VIAL NEB CNTNEBULIZ (04:50)
--- NOTE | 2024-06-29 04:57 | ECG_ITS ---
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
--- NOTE | 2024-06-29 05:26 | CT_ITS ---
[address] [address] Patient Name: LAURA ADAMSON MRN: [id number] date: 1960 Sex: F Assigned Patient Location: ICU Current Patient Location: ICU Accession/Order Number: [id number] Exam Date: 06/29/2024 06:20 Report Date: 06/29/2024 15:37 At the request of: AVERY PAN Procedure: CT cervical spine wo con CT CERVICAL SPINE WITHOUT IV CONTRAST. CLINICAL HISTORY: fall, ams COMPARISON: 04/11/2024 TECHNIQUE: CT of the cervical spine without contrast. Orthogonal sagittal and coronal multiplanar reformatted images were created. . FINDINGS: BONY ALIGNMENT: There is normal cervical lordosis. No spondylolisthesis. VERTEBRAL BODY: No acute fracture of the cervical spine. Intervertebral disc spaces are intact. CENTRAL CANAL/NEURAL FORAMINA: No high-grade central canal or neuroforaminal stenosis. SOFT TISSUE: No mass or inflammation. UPPER LUNGS: No acute findings. CT/CT cervical spine wo con IMPRESSION: No acute cervical spinal fracture. Electronically authenticated by: PAMELLA MOSLEY Date: 06/29/2024 15:37
--- NOTE | 2024-06-29 05:26 | CT_ITS ---
[address] [address] Patient Name: LAURA ADAMSON MRN: [id number] date: 1960 Sex: F Assigned Patient Location: ICU Current Patient Location: ICU Accession/Order Number: [id number] Exam Date: 06/29/2024 06:20 Report Date: 06/29/2024 07:10 At the request of: AVERY PAN Procedure: CT head/brain wo con EXAM: CT head/brain wo con CLINICAL INDICATION: AMS COMPARISON: CT head 06/24/2024 TECHNIQUE: Axial CT images of the brain were obtained without contrast. Coronal and sagittal reformats were obtained. Dose reduction techniques were achieved by using automated exposure control and/or adjustment of mA and/or kV according to patient size and/or use of iterative reconstruction technique. FINDINGS: No intracranial hemorrhage, extra-axial fluid collection, hydrocephalus, midline shift, or acute large vessel territory infarction. No other mass effect. Patent basal cisterns. Trace periventricular hypoattenuation is likely on the basis of chronic microvascular angiopathic changes. Mild symmetric global volume loss without lobar predominance. Commensurate ventricular system caliber prominence. No calvarial fracture. Normal soft tissues. Paranasal sinuses and mastoid air cells are well-aerated. CT/CT head/brain wo con IMPRESSION: No acute intracranial process. No substantial change since 06/24/2024. Electronically authenticated by: JUSTO TREVINO Date: 06/29/2024 07:10
[2024-06-29 05:49] LABS: Allen Test POSITIVE (POSITIVE); Base Excess ABG -7.5 mmol/L (-2.0-2.0); Fractionated Inspired Oxygen 25 %; HCO3 ABG 20.9 mmol/L (22.0-26.0); O2 Mode BIPAP; Oxygen Saturation ABG 96.5 %; PO2 ABG 87.5 mmHg (80.0-100.0); Puncture Site RR
[2024-06-29 05:50] LABS: BIPAP Pressure 14/7
[2024-06-29 05:51] LABS: ABG PCO2 56.3 mmHg (35.0-45.0); pH ABG 7.178 (7.350-7.450)
--- NOTE | 2024-06-29 06:01 | CT_ITS ---
[address] [address] Patient Name: LAURA ADAMSON MRN: [id number] date: 1960 Sex: F Assigned Patient Location: ICU Current Patient Location: ICU Accession/Order Number: [id number] Exam Date: 06/29/2024 06:20 Report Date: 06/29/2024 16:12 At the request of: AVERY PAN Procedure: CT chest wo con CT CHEST WITHOUT CONTRAST. HISTORY: fall, pain, ams COMPARISON: CTA chest dated 09/08/2021 TECHNIQUE: Unenhanced chest CT including axial, sagittal and coronal reformatted images. FINDINGS: LUNGS: There is mild atelectasis in the lower lobes. No airspace disease. There is bilateral bronchial wall thickening. There are no pleural effusions. No pneumothorax. AORTA: No aortic aneurysm. LYMPH NODES: No enlarged mediastinal lymph nodes by CT criteria. HEART: Normal size. No pericardial effusion. UPPER ABDOMEN: Hepatic steatosis. MUSCULOSKELETAL: There are new moderate T8 and T9 vertebral body compression fractures. No bony retropulsion. There are chronic bilateral rib fractures. CT/CT chest wo con IMPRESSION: 1. No acute traumatic injury in the chest. 2. Age-indeterminate moderate T8 and T9 vertebral body compression fractures. Correlate clinically. 3. Bilateral bronchial wall thickening suggestive of bronchitis. Electronically authenticated by: PAMELLA MOSLEY Date: 06/29/2024 16:12
--- NOTE | 2024-06-29 06:01 | CT_ITS ---
The [address] [address] Patient Name: LAURA ADAMSON MRN: [id number] date: 1960 Sex: F Assigned Patient Location: ICU Current Patient Location: ICU Accession/Order Number: [id number] Exam Date: 06/29/2024 06:20 Report Date: 06/29/2024 07:14 At the request of: AVERY PAN Procedure: CT abdomen pelvis wo con EXAM: CT abdomen pelvis wo con , 06/29/2024 HISTORY: fall, pain, ams COMPARISON: CT scan chest from 2021. TECHNIQUE: Noncontrast CT scan of the abdomen and pelvis was performed. Coronal and sagittal reconstructions were performed. Dose reduction techniques were achieved by using automated exposure control and/or adjustment of mA and/or kV according to patient size and/or use of iterative reconstruction technique. FINDINGS: The scan partially limited due to motion/breathing artifacts as well as lack of contrast. Moderate hepatic steatosis without obvious focal lesion. No radiopaque gallstones. No biliary dilatation. The spleen, pancreas and both adrenal glands are grossly unremarkable. Moderate to severe atherosclerotic calcification of the abdominal aorta and common iliac arteries. Unremarkable IVC. No enlarged lymph node in the abdomen, retroperitoneum or the pelvis. No bowel loop dilatation or bowel wall thickening. No free fluid in the peritoneal cavity. No pelvic mass. Unremarkable uterus and adnexa. No urolithiasis or urinary tract dilatation. No obvious kidney mass or focal lesion. Frankel catheter in the urinary bladder. The bone windows demonstrate diffuse osteopenia. Chronic wedge compression of T12 vertebra. Mild partial compression of L2 vertebra, age indeterminate. No focal aggressive bone lesion. Fixation hardware in the proximal right femur. Scans through the lung bases show bilateral mild dependent atelectasis and trace right pleural effusion. CT/CT abdomen pelvis wo con IMPRESSION: 1. No acute findings in the abdomen or pelvis, given the limitations of a noncontrast scan. 2. Moderate hepatic steatosis. 3. No urolithiasis or urinary tract dilatation. Electronically authenticated by: YOUNG ROMERO Date: 06/29/2024 07:14
[2024-06-29 06:13] LABS: Basophils Percent Auto 0.2 % (0.2-2.0); Eosinophils Percent Auto 0.2 % (0.9-7.0); Hematocrit 28.7 % (36.0-48.0); Immature Granulocytes Abs Auto 0.25 10^3/uL (0.00-0.03); Immature Granulocytes Pct Auto 1.6 % (0.0-0.5); Lymphocytes Absolute Auto 0.9 10^3/uL (1.2-3.8); Lymphocytes Percent Auto 5.7 % (20.5-60.0); Mean Corpuscular HGB Conc 31.4 g/dL (29.9-35.2); Mean Corpuscular Hemoglobin 31.7 pg (26.7-34.0); Mean Corpuscular Volume 101.1 fL (81.0-99.0); Mean Platelet Volume 9.8 fL (9.5-13.5); Monocytes Percent Auto 6.5 % (1.7-12.0); Neutrophils Absolute Auto 13.8 10^3/uL (1.4-6.5); Neutrophils Percent Auto 85.8 % (43.0-75.0); Platelet Count 202 10^3/uL (150-450); Red Blood Count 2.84 10^6/uL (4.20-5.40); Red Cell Distribution Width 15.7 % (11.0-15.0); White Blood Count 16.1 10^3/uL (4.0-11.0)
[2024-06-29 06:23] LABS: Influenza Virus A Antigen Positive; Influenza Virus B Antigen Negative; Internal Control Within Normal Limits
[2024-06-29 06:24] LABS: Internal Control Within Normal Limits; SARS-CoV-2 Ag NEGATIVE (NEGATIVE)
[2024-06-29 06:28] LABS: INR 1.08; Prothrombin Time 11.4 sec (9.0-11.6)
[2024-06-29 06:31] LABS: Alanine Aminotransferase 70 U/L (14-59); Albumin Globulin Ratio 0.5; Albumin Level 1.9 g/dL (3.4-5.0); Alkaline Phosphatase 225 U/L (46-116); Anion Gap 12.1; BUN Creatinine Ratio 11.8; Bilirubin Total 0.6 mg/dL (0.2-1.0); Calcium 8.4 mg/dL (8.5-10.1); Carbon Dioxide 22.5 mmol/L (21.0-32.0); Chloride 102 mmol/L (98-107); Estimated GFR (African America >60 (>=60 mL/min/1.73m^2); Estimated GFR (Non-African Ame >60 (>=60 mL/min/1.73m^2); Glucose 90 mg/dL (74-106); Sodium 131 mmol/L (136-145); Total Protein 5.9 g/dL (6.4-8.2)
[2024-06-29 06:32] LABS: Lactate/Lactic Acid 0.7 mmol/L (0.4-2.0)
[2024-06-29 06:55] LABS: Aspartate Amino Transferase 135 U/L (15-37); Potassium 5.6 mmol/L (3.5-5.1)
[2024-06-29] MEDS: BUMETANIDE 1 MG/4 ML VIAL IVP (07:06)
[2024-06-29 08:12] LABS: Ammonia 30 umol/L (11-32)
[2024-06-29] MEDS: ALBUTEROL SULFATE 2.5 MG/3 ML VIAL NEB IH ×3 (11:25→21:16)
[2024-06-29] MEDS: BUDESONIDE 0.5 MG/2 ML AMPULE NEB IH ×2 (11:25→21:16)
[2024-06-29] MEDS: BUMETANIDE 10 MG in 0.9 % SODIUM CHLORIDE 160 ML 20 MG IV (11:56)
--- NOTE | 2024-06-29 14:24 | PM.HP ---
HPI H&P: HPI History of Present Illness Chief complaint: FALL sinus tacht cardia general weakness Narrative: 64 y/o female to ER with weakness after a fall. Drinks beer daily and recently admitted for anemia and transfusion. Continues to drink and no plans to stop. Fell and noticed weakness. To ER and EtOH negative. Chest x-ray negative and noted sinus tachycardia. Low sodium and hgb stable. Admitted for treatment. On floor developed worsening tachycardia and SOB. Transferred to ICU and started BiPAP. Urine positive for meth, benzo, and THC. Chest x-ray clear. ER physician evaluated and felt fluid overload. Given IV bumex. Influenza A positive and UA showed UTI. Remains lethargic and altered. Opens eyes to voice and attempts to talk but falls back to sleep. Afebrile. Opioid HPI Opioid Management Most Recent Pain and Opioid Data: Last Pain Scale 7 06/26/24 17:22 06/26/24 Last Pain Assessment 06/29/24 14:00 Last ORT Total Score 4 06/28/24 18:22 06/28/24 Last ORT Risk Category Moderate Risk 06/28/24 18:22 06/28/24 Ur Phencyclidine Scrn Negative (NEGATIVE) 06/28/24 20:30 06/28/24 Review of Systems ROS Status of ROS unobtainable due to medical condition PFSH [facility] Medical History (Updated 06/29/24 @ 10:07 by Dmitry Perry MD) Chronic heart failure with preserved ejection fraction (HFpEF) ?I50.32 - Chronic diastolic (congestive) heart failure (ICD-10) Facial laceration ?S01.81XA - Laceration without foreign body of other part of head, initial encounter (ICD-10) Fall ?W19.XXXA - Unspecified fall, initial encounter (ICD-10) Skin tear Anemia ?D64.9 - Anemia, unspecified (ICD-10) Alcohol intoxication ?F10.929 - Alcohol use, unspecified with intoxication, unspecified (ICD-10) Sinus tachycardia ?R00.0 - Tachycardia, unspecified (ICD-10) Social History Highest level of school completed/degree received: 10th grade Little interest or pleasure in doing things: not at all Feeling down, depressed, or hopeless: not at all Meds Home Medications and Allergies Home Medications ?Medication ?Instructions ?Recorded ?Confirmed ?Type albuterol sulfate 90 mcg/actuation 2 puff inhalation Q6H PRN 06/24/24 06/28/24 History aerosol inhaler shortness of breath or wheezing aspirin 81 mg tablet,delayed 81 mg PO DAILY 06/24/24 06/28/24 History release budesonide-formoterol HFA 160 2 puff inhalation Q12H 06/24/24 06/28/24 History mcg-4.5 mcg/actuation aerosol inhaler (Symbicort) clopidogrel 75 mg tablet 75 mg PO DAILY 06/24/24 06/28/24 History metoprolol succinate 25 mg 25 mg PO DAILY 06/24/24 06/28/24 History tablet,extended release 24 hr nifedipine 30 mg tablet,extended 30 mg PO DAILY 06/24/24 06/28/24 History release 24 hr potassium chloride 10 mEq 10 meq PO DAILY 06/24/24 06/28/24 History tablet,extended release pantoprazole 40 mg tablet,delayed 40 mg PO DAILY #30 tabs 06/26/24 06/28/24 Rx release (Protonix) Allergies Allergy/AdvReac Type Severity Reaction Status Date / Time No Known Drug Allergies Allergy Verified 06/28/24 14:56 Exam Constitutional Vital Signs, click to edit/add: Last Vital Signs Temp 97.9 F 06/29/24 11:03 Pulse 114 H 06/29/24 13:50 Resp 28 H 06/29/24 13:50 BP 123/79 06/29/24 13:23 Pulse Ox 96 06/29/24 13:50 O2 Del Method BIPAP 06/29/24 11:03 O2 Flow Rate 2 06/28/24 20:48 FiO2 25 06/29/24 11:26 Documenting provider has reviewed patient's vital signs: yes Common normals: no apparent distress General appearance: lethargic HENMT Common normals: normocephalic Eye Common normals: PERRL and EOMs intact bilaterally Respiratory Auscultation: crackles and diminished lung sounds Cardio Common normals: regular rate, regular rhythm, no gallops, no murmurs and no rub GI Common normals: Normal to inspection, nondistended, normoactive bowel sounds present and non-tender Extremity Other: Diffuse edema in arms and legs Results Labs Labs: Short CBC 06/28/24 06/29/24 Range/Units 15:11 05:54 WBC 10.5 16.1 H (4.0-11.0) 10^3/uL Hgb 8.9 L 9.0 L (12.0-16.0) g/dL Hct 28.2 L 28.7 L (36.0-48.0) % Plt Count 251 202 (150-450) 10^3/uL BMP 06/28/24 06/29/24 06/29/24 15:11 02:35 05:54 Sodium 131 L 136 131 L Potassium 3.5 3.9 5.6 H Chloride 99 104 102 Carbon Dioxide 21.2 24.1 22.5 BUN 7.0 7.0 9.0 Creatinine 0.77 0.74 0.76 Glucose 107 H 89 90 Calcium 8.8 7.8 L 8.4 L Liver Function 06/28/24 06/29/24 Range/Units 15:11 05:54 Total Bilirubin 0.7 0.6 (0.2-1.0) mg/dL Direct Bilirubin 0.4 H (0.0-0.2) mg/dL AST 126 H 135 H (15-37) U/L ALT 78 H 70 H (14-59) U/L Alkaline Phosphatase 253 H 225 H (46-116) U/L Albumin 2.3 L 1.9 L (3.4-5.0) g/dL Urine 06/28/24 Range/Units 20:30 Urine Color Yellow (YELLOW) Urine Clarity Slightly cloudy A (CLEAR) Urine pH 5.5 (5.0-9.0) Ur Specific [place] 1.025 (1.005-1.025) Urine Protein 30 A (NEG/TRACE) mg/dL Urine Glucose (UA) Negative (NEGATIVE) mg/dL ABG ABG results: 06/28/24 06/29/24 06/29/24 20:19 01:54 05:42 ABG pH 7.205 L* 7.198 L* 7.178 L* ABG pCO2 53.9 H* 54.8 H* 56.3 H* ABG pO2 86.9 105.0 H 87.5 ABG HCO3 21.3 L 21.3 L 20.9 L ABG O2 Saturation 96.3 98.4 96.5 ABG Base Excess -6.7 L -6.7 L -7.5 L Assessment and Plan Assessment and Plan (1) Influenza A: (2) Acute hypoxic respiratory failure: (3) UTI (urinary tract infection): (4) Sepsis: (5) Acute on chronic heart failure with preserved ejection fraction (HFpEF): (6) Alcoholic fatty liver: (7) Alcohol abuse, continuous: (8) Generalized weakness: Plan Developed hyoxia and respiratory distress. Appears to have fluid overload and given IV bumex. Start bumex drip. Start tamiflu for influenza and continue breathing treatments. Consult pulmonology. Continue rocephin for UTI. Carr PT/OT. Continue CIWA scale and assess for alcohol withdrawal. Check US RUQ. Urinary Catheter Management Urinary Catheter Management 2-way Urethral: Cath placed during this visit: yes Urethral indwelling: Yes Reason for continuing: ICU pt on diuretics Insertion date: 06/28/24 Insertion time: 20:00
--- NOTE | 2024-06-29 16:51 | PC.NURSE ---
pt opens eyes to name. bipap removed for oral care. placed on 2lnc. attempted to give pt sip of water, pt could not utilize straw. oral care completed. repositioned and alison care provided. linens and gown changed. RFA dressing changed for sanguinous drainage. pt attempts to converse, but is unable to speak. nods head in response to questions. RT at bedside. pt ls dim with crackles t/o. resps shallow.
[2024-06-29] MEDS: CEFTRIAXONE 1,000 MG in 0.9 % SODIUM CHLORIDE 50 ML 100 MG IV ×2 (22:34)
[2024-06-30] VITALS (42 sets, daily range): BP systolic 106–143; BP diastolic 72–83; PULSE 100–134; RESP 14; TEMP 36.3–37.7; O2SAT 91–99
[2024-06-30] MEDS: ALBUTEROL SULFATE 2.5 MG/3 ML VIAL NEB IH ×4 (04:35→20:51)
[2024-06-30 04:58] LABS: Allen Test POSITIVE (POSITIVE); Base Excess ABG -2.8 mmol/L (-2.0-2.0); HCO3 ABG 24.8 mmol/L (22.0-26.0); O2 Mode BIPAP; Oxygen Saturation ABG 99.7 %
[2024-06-30 04:59] LABS: BIPAP Pressure 16/7; Fractionated Inspired Oxygen 35 %; Puncture Site L RADIAL; Rate 14
--- NOTE | 2024-06-30 05:00 | XR_ITS ---
The [address] [address] Patient Name: LAURA ADAMSON MRN: [id number] date: 1960 Sex: F Assigned Patient Location: ICU Current Patient Location: ICU Accession/Order Number: [id number] Exam Date: 06/30/2024 05:00 Report Date: 06/30/2024 08:53 At the request of: DAMARI WISEMAN Procedure: XR chest 1V EXAM: XR chest 1V HISTORY: Hypoxia, flu A COMPARISON: 06/28/2024. CT chest 06/29/2024. TECHNIQUE: AP chest x-ray. FINDINGS: Cardiac size appears within normal limits. Trachea is midline. No mediastinal widening. Central vascular prominence is redemonstrated. Mild coarsening of interstitial markings. No pneumothorax or effusion is identified. Several chronic healed right rib fracture deformities noted with callus. XR/XR chest 1V IMPRESSION: Interstitial thickening could be related to bronchitis or mild edema. No interval pneumonia. Electronically authenticated by: NICOLE HUNTER Date: 06/30/2024 08:53
[2024-06-30 05:01] LABS: ABG PCO2 59.4 mmHg (35.0-45.0); pH ABG 7.229 (7.350-7.450)
[2024-06-30 05:07] LABS: Hematocrit 26.6 % (36.0-48.0); Hemoglobin 8.1 g/dL (12.0-16.0); Mean Corpuscular HGB Conc 30.5 g/dL (29.9-35.2); Mean Corpuscular Hemoglobin 30.6 pg (26.7-34.0); Mean Corpuscular Volume 100.4 fL (81.0-99.0); Mean Platelet Volume 9.3 fL (9.5-13.5); Platelet Count 210 10^3/uL (150-450); Red Blood Count 2.65 10^6/uL (4.20-5.40); Red Cell Distribution Width 15.8 % (11.0-15.0); White Blood Count 16.8 10^3/uL (4.0-11.0)
[2024-06-30 05:24] LABS: Ammonia 36 umol/L (11-32); Band Neutrophils Absolute 0.2 10^3/uL (0.0-0.3); Lymphocytes Absolute Manual 0.67 10^3/uL (1.20-3.80); Segmented Neut Absolute Manual 15.96 10^3/uL (1.4-6.5)
[2024-06-30 05:25] LABS: Anion Gap 11.6; Carbon Dioxide 25.1 mmol/L (21.0-32.0); Chloride 104 mmol/L (98-107); Magnesium 1.8 mg/dL (1.8-2.4); Potassium 3.7 mmol/L (3.5-5.1); Sodium 137 mmol/L (136-145)
[2024-06-30 05:26] LABS: Alanine Aminotransferase 45 U/L (14-59); Albumin Globulin Ratio 0.4; Albumin Level 1.7 g/dL (3.4-5.0); Alkaline Phosphatase 182 U/L (46-116); Aspartate Amino Transferase 69 U/L (15-37); Bilirubin Total 0.4 mg/dL (0.2-1.0); Calcium 8.3 mg/dL (8.5-10.1); Estimated GFR (African America >60 (>=60 mL/min/1.73m^2); Estimated GFR (Non-African Ame 60 (>=60 mL/min/1.73m^2); Globulin 3.8 g/dL; Glucose 99 mg/dL (74-106); Total Protein 5.5 g/dL (6.4-8.2)
--- NOTE | 2024-06-30 07:25 | P.PLCN_ITS ---
History of Present Illness History of Present Illness Consult date: 06/30/24 Requesting physician: Dmitry Perry Reason for consult: other (Respiratory failure) Chief complaint: FALL sinus tacht cardia general weakness Narrative: 64yo female presents after a fall. She is on a BiPAP and unable to provide me any history; history was obtained from the chart and RN. The patient was originally admitted 06/24/2024 - 06/26/2024 with upper GI bleed & anemia, due in part to heavy EtOH use (~12 pack/day of BudLight). She was discharged home. She returned on 06/28/2024 with a fall. CXR did not show any acute rib fractures or other pathology. She was noted to be somewhat somnolent. EtOH was negative, but tox screen returned positive for methamphetamines, THC, and benzodiazepines (though she was on chlordiazepoxide on CIWA the prior admission). ABG was checked which noted an acute hypercapnic respiratory failure on top of metabolic acidosis. She was placed on BiPAP and has remained on BiPAP since. ABG has not improved on BiPAP, with this morning's values pH 7.229 & pCO2 59.4 on BiPAP 16/. She is able to follow some simple directions (e.g. squeezing my hand) after having to speak very loudly to waken her. Also new this admission on presentation were an elevated BNP, elevated Troponins, and positive for influenza A. Review of Systems ROS Status of ROS unobtainable due to medical condition (On BiPAP) [facility] Medical History (Updated 06/30/24 @ 00:00 by ) Chronic heart failure with preserved ejection fraction (HFpEF) ?I50.32 - Chronic diastolic (congestive) heart failure (ICD-10) Facial laceration ?S01.81XA - Laceration without foreign body of other part of head, initial encounter (ICD-10) Fall ?W19.XXXA - Unspecified fall, initial encounter (ICD-10) Skin tear Anemia ?D64.9 - Anemia, unspecified (ICD-10) Alcohol intoxication ?F10.929 - Alcohol use, unspecified with intoxication, unspecified (ICD-10) Sinus tachycardia ?R00.0 - Tachycardia, unspecified (ICD-10) Social History Highest level of school completed/degree received: 10th grade Little interest or pleasure in doing things: not at all Feeling down, depressed, or hopeless: not at all Meds Home Medications and Allergies Home Medications ?Medication ?Instructions ?Recorded ?Confirmed ?Type albuterol sulfate 90 mcg/actuation 2 puff inhalation Q6H PRN 06/24/24 06/28/24 History aerosol inhaler shortness of breath or wheezing aspirin 81 mg tablet,delayed 81 mg PO DAILY 06/24/24 06/28/24 History release budesonide-formoterol HFA 160 2 puff inhalation Q12H 06/24/24 06/28/24 History mcg-4.5 mcg/actuation aerosol inhaler (Symbicort) clopidogrel 75 mg tablet 75 mg PO DAILY 06/24/24 06/28/24 History metoprolol succinate 25 mg 25 mg PO DAILY 06/24/24 06/28/24 History tablet,extended release 24 hr nifedipine 30 mg tablet,extended 30 mg PO DAILY 06/24/24 06/28/24 History release 24 hr potassium chloride 10 mEq 10 meq PO DAILY 06/24/24 06/28/24 History tablet,extended release pantoprazole 40 mg tablet,delayed 40 mg PO DAILY #30 tabs 06/26/24 06/28/24 Rx release (Protonix) Allergies Allergy/AdvReac Type Severity Reaction Status Date / Time No Known Drug Allergies Allergy Verified 06/28/24 14:56 Exam Constitutional Vital Signs, click to edit/add: Last Vital Signs Temp 97.6 F 06/30/24 05:29 Pulse 123 H 06/30/24 06:21 Resp 24 H 06/30/24 05:29 BP 118/74 06/30/24 05:29 Pulse Ox 96 06/30/24 05:29 O2 Del Method BIPAP 06/30/24 05:29 O2 Flow Rate 2 06/29/24 17:08 FiO2 25 06/30/24 05:29 Other: Obtunded, can follow simple commands HENMS Other: BiPAP Chest Other: Normal rise & fall Respiratory Other: Tachypneic, but non-labored. Faint inspiratory crackles. No wheezes. Cardio Other: Tachycardic, irregular. GI Other: Soft Extremity Other: 2+ edema BLE Non-pitting edema BUE Neuro Other: No fasciculations Results Laboratory Findings ABG, PT/INR, D-dimer: ABG ABG pH 7.229 (7.350-7.450) L* 06/30/24 04:55 ABG pCO2 59.4 mmHg (35.0-45.0) H* 06/30/24 04:55 ABG pO2 131.0 mmHg (80.0-100.0) H 06/30/24 04:55 ABG O2 Saturation 99.7 % 06/30/24 04:55 PT/INR, D-dimer PT 11.4 sec (9.0-11.6) 06/29/24 05:54 INR 1.08 06/29/24 05:54 Abnormal lab findings: Abnormal Labs 06/28/24 06/28/24 06/28/24 15:11 20:19 20:30 WBC RBC 2.87 L Hgb 8.9 L Hct 28.2 L MCV RDW 15.3 H MPV 9.2 L Neut % (Auto) 85.8 H Lymph % (Auto) 4.2 L Eos % (Auto) 0.1 L Neut # (Auto) 9.0 H Lymph # (Auto) 0.4 L [place] # (Auto) 0.9 H Abs Immat Gran (auto) 0.06 H Seg Neuts % (Manual) Lymphocytes % (Manual) Monocytes % (Manual) Eosinophils % (Manual) Basophils % (Manual) Imm/Tot Granulo (auto) 0.6 H Neutrophils # (Manual) Lymphocytes # (Manual) Monocytes # (Manual) ABG pH 7.205 L* ABG pCO2 53.9 H* ABG pO2 ABG HCO3 21.3 L ABG Base Excess -6.7 L Sodium 131 L Potassium Glucose 107 H Calcium Magnesium Direct Bilirubin 0.4 H AST 126 H ALT 78 H Alkaline Phosphatase 253 H Ammonia Troponin I High Sens NT-Pro-B Natriuret Pep Total Protein 6.2 L Albumin 2.3 L Urine Clarity Slightly cloudy A Urine Protein 30 A Urine Ketones Trace A Urine Occult Blood Small A Urine Nitrite Positive A Urine Bilirubin Small A Ur Leukocyte Esterase Small A Urine WBC 75-100 A Ur Squamous Epith Cells Moderate A Urine Bacteria Large A Urine Casts Seen A U Methamphetamines Scrn Positive A U Benzodiazepines Scrn Positive A U Cannabinoids Screen Positive A Influenza Type A Ag 06/28/24 06/29/24 06/29/24 22:23 01:54 02:35 WBC RBC Hgb Hct MCV RDW MPV Neut % (Auto) Lymph % (Auto) Eos % (Auto) Neut # (Auto) Lymph # (Auto) [place] # (Auto) Abs Immat Gran (auto) Seg Neuts % (Manual) Lymphocytes % (Manual) Monocytes % (Manual) Eosinophils % (Manual) Basophils % (Manual) Imm/Tot Granulo (auto) Neutrophils # (Manual) Lymphocytes # (Manual) Monocytes # (Manual) ABG pH 7.198 L* ABG pCO2 54.8 H* ABG pO2 105.0 H ABG HCO3 21.3 L ABG Base Excess -6.7 L Sodium Potassium Glucose Calcium 7.8 L Magnesium 1.7 L Direct Bilirubin AST ALT Alkaline Phosphatase Ammonia Troponin I High Sens 86.4 H* 103.8 H* NT-Pro-B Natriuret Pep 5577.0 H* Total Protein Albumin Urine Clarity Urine Protein Urine Ketones Urine Occult Blood Urine Nitrite Urine Bilirubin Ur Leukocyte Esterase Urine WBC Ur Squamous Epith Cells Urine Bacteria Urine Casts U Methamphetamines Scrn U Benzodiazepines Scrn U Cannabinoids Screen Influenza Type A Ag 06/29/24 06/29/24 06/29/24 05:42 05:54 05:58 WBC 16.1 H RBC 2.84 L Hgb 9.0 L Hct 28.7 L MCV 101.1 H RDW 15.7 H MPV Neut % (Auto) 85.8 H Lymph % (Auto) 5.7 L Eos % (Auto) 0.2 L Neut # (Auto) 13.8 H Lymph # (Auto) 0.9 L [place] # (Auto) 1.0 H Abs Immat Gran (auto) 0.25 H Seg Neuts % (Manual) Lymphocytes % (Manual) Monocytes % (Manual) Eosinophils % (Manual) Basophils % (Manual) Imm/Tot Granulo (auto) 1.6 H Neutrophils # (Manual) Lymphocytes # (Manual) Monocytes # (Manual) ABG pH 7.178 L* ABG pCO2 56.3 H* ABG pO2 ABG HCO3 20.9 L ABG Base Excess -7.5 L Sodium 131 L Potassium 5.6 H Glucose Calcium 8.4 L Magnesium Direct Bilirubin AST 135 H ALT 70 H Alkaline Phosphatase 225 H Ammonia Troponin I High Sens 100.0 H* NT-Pro-B Natriuret Pep Total Protein 5.9 L Albumin 1.9 L Urine Clarity Urine Protein Urine Ketones Urine Occult Blood Urine Nitrite Urine Bilirubin Ur Leukocyte Esterase Urine WBC Ur Squamous Epith Cells Urine Bacteria Urine Casts U Methamphetamines Scrn U Benzodiazepines Scrn U Cannabinoids Screen Influenza Type A Ag Positive A 06/30/24 06/30/24 04:47 04:55 WBC 16.8 H RBC 2.65 L Hgb 8.1 L Hct 26.6 L MCV 100.4 H RDW 15.8 H MPV 9.3 L Neut % (Auto) Lymph % (Auto) Eos % (Auto) Neut # (Auto) Lymph # (Auto) [place] # (Auto) Abs Immat Gran (auto) Seg Neuts % (Manual) 95.0 H Lymphocytes % (Manual) 4.0 L Monocytes % (Manual) 0.0 L Eosinophils % (Manual) 0.0 L Basophils % (Manual) 0.0 L Imm/Tot Granulo (auto) Neutrophils # (Manual) 15.96 H Lymphocytes # (Manual) 0.67 L Monocytes # (Manual) 0.00 L ABG pH 7.229 L* ABG pCO2 59.4 H* ABG pO2 131.0 H ABG HCO3 ABG Base Excess -2.8 L Sodium Potassium Glucose Calcium 8.3 L Magnesium Direct Bilirubin AST 69 H ALT Alkaline Phosphatase 182 H Ammonia 36 H Troponin I High Sens NT-Pro-B Natriuret Pep Total Protein 5.5 L Albumin 1.7 L Urine Clarity Urine Protein Urine Ketones Urine Occult Blood Urine Nitrite Urine Bilirubin Ur Leukocyte Esterase Urine WBC Ur Squamous Epith Cells Urine Bacteria Urine Casts U Methamphetamines Scrn U Benzodiazepines Scrn U Cannabinoids Screen Influenza Type A Ag Assessment and Plan Assessment and Plan (1) Influenza A: Assessment and Plan: 1. Influenza A bronchitis. No actual pneumonia per se on chest CT 06/29/2024, but given her profound respiratory failure, cannot completely rule pneumonia out. She was started on Tamiflu. 2. Acute hypercapnic respiratory acidosis. Associated with influenza +/- other? Concomitant metabolic acidosis - appears non-anion gap. Not improving with BiPAP. It does not appear to be an oxygenation issue, so will decrease PEEP on BiPAP and increase IPAP to widen the driving pressure - now at 18.5 If she deteriorates further, need to consider intubation with ventilator support. 3. Acute NSTEMI type 2. Present on admission. Troponin 7.1 on first admission 06/24/2024, now increased to 103.8 on second troponin after coming back to hospital on 06/29/2024. Unclear if associated with respiratory failure or with methamphetamine use (unable to tell exactly when she used it last). 4. Acute exacerbation of diastolic congestive heart failure. BNP on 06/24/2024 was 317, increased to 5577 second admission. She was placed on a Bumex gtt, but still appears edematous. Exacerbated by poor nutritional status from alcoholism - Albumin is only 1.7 Consider additional diuresis. 5. Alcohol abuse. EtOH was negative on second admission. Previously on CIWA. She has been placed on thiamine and folic acid. 6. Methamphetamine positive test. Plan If patient's respiratory status worsens, she will need to be intubated.
[2024-06-30] MEDS: ALBUMIN HUMAN 25 GM/100 ML PREMIX IV (09:21)
--- NOTE | 2024-06-30 09:51 | SWNOTE1 ---
Pt was discharged from her a few days ago and went home with MED 1 . SW also had a voicemail from a sister, Mariely, concerns for her discharge. Mariely is not listed on emergency contact. SW to check pt's orientation to get permission to speak wth Mariely. Pt also had a positive toxicology screen on admission, SW to address this as well.
[2024-06-30] MEDS: BUMETANIDE 10 MG in 0.9 % SODIUM CHLORIDE 160 ML 20 MG IV (10:16)
--- NOTE | 2024-06-30 10:46 | PM.PN ---
Progress Note: Subjective Subjective Interval history: Patient unchanged this am. Continues to have lethargy and altered mental status. On BiPAP and not responding to questions. Ammonia elevated this am. Remains edematous and low protein. Evaluated by pulmonology and concerned of potential need for intubation. Afebrile. Exam Constitutional Vital Signs, click to edit/add: Last Vital Signs Temp 98.7 F 06/30/24 08:00 Pulse 125 H 06/30/24 09:59 Resp 24 H 06/30/24 08:00 BP 143/83 H 06/30/24 08:00 Pulse Ox 96 06/30/24 05:29 O2 Del Method BIPAP 06/30/24 08:00 O2 Flow Rate 2 06/29/24 17:08 FiO2 25 06/30/24 08:00 General appearance: lethargic HENMT Common normals: normocephalic Eye Common normals: PERRL and EOMs intact bilaterally Respiratory Auscultation: rhonchi and diminished lung sounds Cardio Common normals: regular rate, regular rhythm, no gallops, no murmurs and no rub GI Common normals: Normal to inspection, nondistended, normoactive bowel sounds present and non-tender Extremity General: edema (Diffuse edema in arms and legs) Progress Note: Objective Labs Labs: Short CBC 06/30/24 Range/Units 04:47 WBC 16.8 H (4.0-11.0) 10^3/uL Hgb 8.1 L (12.0-16.0) g/dL Hct 26.6 L (36.0-48.0) % Plt Count 210 (150-450) 10^3/uL BMP 06/30/24 04:47 Sodium 137 Potassium 3.7 Chloride 104 Carbon Dioxide 25.1 BUN 15.0 Creatinine 0.94 Glucose 99 Calcium 8.3 L Liver Function 06/30/24 Range/Units 04:47 Total Bilirubin 0.4 (0.2-1.0) mg/dL AST 69 H (15-37) U/L ALT 45 (14-59) U/L Alkaline Phosphatase 182 H (46-116) U/L Albumin 1.7 L (3.4-5.0) g/dL Progress Note: A&P Assessment and Plan (1) Influenza A: (2) Acute hypoxic respiratory failure: (3) UTI (urinary tract infection): (4) Sepsis: (5) Acute on chronic heart failure with preserved ejection fraction (HFpEF): (6) Alcoholic encephalopathy: (7) Type 2 IA (myocardial infarction): (8) Alcoholic fatty liver: (9) Alcohol abuse, continuous: (10) Generalized weakness: Plan Patient minimally changed overnight. Still appears to have fluid overload and will repeat bumex drip. Add IV albumin. Ammonia elevated and hepatic encephalopathy likely contributing to altered mental status. Add lactulose. Continue tamiflu and rocephin. Await urine culture. Continue to monitor for alcohol withdrawal. Urinary Catheter Management Urinary Catheter Management 2-way Urethral: Cath placed during this visit: yes Urethral indwelling: Yes Reason for continuing: ICU pt on diuretics Insertion date: 06/28/24 Insertion time: 20:00
[2024-06-30] MEDS: BUDESONIDE 0.5 MG/2 ML AMPULE NEB IH ×2 (11:07→20:51)
--- NOTE | 2024-06-30 11:17 | CM.NOTE ---
Rounds made with Dr. Perry, pt not responding verbally to questions. Pt does open eyes to voice. Hospitalist Nocturnist Physician consulted for further recommendations. Pt continues to require BIPAP.
--- NOTE | 2024-06-30 11:29 | US_ITS ---
The [address] [address] Patient Name: LAURA ADAMSON MRN: [id number] date: 1960 Sex: F Assigned Patient Location: ICU Current Patient Location: ICU Accession/Order Number: [id number] Exam Date: 06/30/2024 08:30 Report Date: 06/30/2024 12:12 At the request of: DAMARI WISEMAN Procedure: US right upper quadrant EXAM: US RIGHT UPPER QUADRANT HISTORY: Alcoholic fatty liver, elevated LFTs. COMPARISON: CT 06/29/2024. TECHNIQUE: Limited ultrasound of the right upper quadrant included grayscale and color Doppler. FINDINGS: PANCREAS: The visualized pancreas appears homogeneous, as seen. LIVER: Right hepatic lobe measures 22.5 cm. Liver contour appears smooth. Increased echogenicity of the liver parenchyma compatible with fatty infiltration. No focal liver parenchymal mass identified. No intrahepatic biliary ductal dilatation is seen. Main portal vein demonstrates flow. CBD: The imaged extrahepatic common bile duct measures 2.1 mm. GALLBLADDER: Gallbladder is fluid distended without shadowing stones, wall thickening or pericholecystic edema. Sonographic Chapa sign is reported as negative. RIGHT KIDNEY: Right kidney measures 11.0 x 4.3 x 4.5 cm with cortical thickness of 1.0 cm. US/US right upper quadrant IMPRESSION: 1. Hepatomegaly with fatty infiltration. 2. No sonographic evidence of gallstones or acute cholecystitis. No biliary ductal dilatation is seen. Electronically authenticated by: NICOLE HUNTER Date: 06/30/2024 12:12
[2024-06-30] MEDS: METOPROLOL TARTRATE 5 MG/5 ML VIAL IVP ×3 (12:33→23:21)
--- NOTE | 2024-06-30 15:08 | SWNOTE1 ---
SALIMA met with daughter and sister. They were asking about HCPOA. SW is not able to complete at this time due to pt's mental status. SW advised they will have to reach out to a stock driver. They do have many concerns about her. Daughter is the only child. SW did ask about the other girl that was here last week. They advised it is not a niece and it is just a friend. SW asked if they were in to drugs? She stated they do believe they are. Pt's daughter and sister are going to call [facility] and [facility] to see if they have anything on file. SALIMA advised the daughter and sister that there is an emergency contact listed, [place]. Daughter stated that she had her as a contact because she brought her in last time. SALIMA advised also that there is a lot of unknown at this time in regards to discharge planning. If pt does become alert and oriented, then she will have a right to make decisions on her own. They voiced understanding. SAILMA spoke to Trini, director of med/surge, and stated that pt does not have any other children. If decisions need to be made for pt it would go to her next of kin, which would be her daughter. Pt does not have a or any other children. At this time since pt is not alert and oriented, pt's daughter will be contact and allowed to have questions answered. If HCPOA paperwork is found, then we will adjust. SALIMA updated nursin and case management.
--- NOTE | 2024-06-30 15:19 | SWNOTE1 ---
Important Message from [employer] reviewed and discussed with patient's daughter. Pt's daughter verbalized understanding and signed the form. Original given to patient's daughter and copy placed in patient?s chart.
[2024-06-30] MEDS: LACTULOSE 10 GM/15 ML UD CUP 20 GM PR (22:19)
[2024-06-30] MEDS: CEFTRIAXONE 1,000 MG in 0.9 % SODIUM CHLORIDE 50 ML 100 MG IV (22:49)
[2024-07-01] VITALS (30 sets, daily range): BP systolic 79–144; BP diastolic 41–91; PULSE 78–128; RESP 14; TEMP 37.7–37.8; O2SAT 85–99; BMI 25.0
[2024-07-01 00:10] LABS: Glucometer 102 mg/dL (74-106)
[2024-07-01] MEDS: ALBUTEROL SULFATE 2.5 MG/3 ML VIAL NEB IH (04:02)
[2024-07-01 05:27] LABS: Basophils Percent Auto 0.2 % (0.2-2.0); Eosinophils Percent Auto 0.1 % (0.9-7.0); Hematocrit 24.4 % (36.0-48.0); Hemoglobin 7.5 g/dL (12.0-16.0); Immature Granulocytes Abs Auto 0.07 10^3/uL (0.00-0.03); Immature Granulocytes Pct Auto 0.5 % (0.0-0.5); Lymphocytes Absolute Auto 0.7 10^3/uL (1.2-3.8); Lymphocytes Percent Auto 5.4 % (20.5-60.0); Mean Corpuscular HGB Conc 30.7 g/dL (29.9-35.2); Mean Corpuscular Hemoglobin 30.9 pg (26.7-34.0); Mean Corpuscular Volume 100.4 fL (81.0-99.0); Mean Platelet Volume 9.4 fL (9.5-13.5); Monocytes Percent Auto 7.7 % (1.7-12.0); Neutrophils Absolute Auto 11.2 10^3/uL (1.4-6.5); Neutrophils Percent Auto 86.1 % (43.0-75.0); Platelet Count 186 10^3/uL (150-450); Red Blood Count 2.43 10^6/uL (4.20-5.40); Red Cell Distribution Width 15.9 % (11.0-15.0)
[2024-07-01 05:39] LABS: Ammonia 37 umol/L (11-32)
[2024-07-01 05:42] LABS: Alanine Aminotransferase 34 U/L (14-59); Albumin Globulin Ratio 0.6; Albumin Level 2.1 g/dL (3.4-5.0); Alkaline Phosphatase 138 U/L (46-116); Anion Gap 9.8; Aspartate Amino Transferase 46 U/L (15-37); BUN Creatinine Ratio 20.5; Bilirubin Total 0.4 mg/dL (0.2-1.0); Calcium 8.4 mg/dL (8.5-10.1); Carbon Dioxide 33.8 mmol/L (21.0-32.0); Chloride 105 mmol/L (98-107); Estimated GFR (African America >60 (>=60 mL/min/1.73m^2); Estimated GFR (Non-African Ame >60 (>=60 mL/min/1.73m^2); Globulin 3.7 g/dL; Glucose 102 mg/dL (74-106); Sodium 146 mmol/L (136-145); Total Protein 5.8 g/dL (6.4-8.2)
[2024-07-01 05:50] LABS: Magnesium 1.6 mg/dL (1.8-2.4); Potassium 2.6 mmol/L (3.5-5.1)
[2024-07-01] MEDS: METOPROLOL TARTRATE 5 MG/5 ML VIAL IVP (06:19)
[2024-07-01] MEDS: POTASSIUM CHLORIDE IN WATER 10 MEQ/100 ML PREMIX 100 MEQ IV ×4 (06:20→09:37)
[2024-07-01 07:22] LABS: pH ABG 7.308 (7.350-7.450)
[2024-07-01 07:23] LABS: HCO3 ABG 35.1 mmol/L (22.0-26.0)
[2024-07-01 07:24] LABS: Allen Test POSITIVE (POSITIVE); Base Excess ABG 8.8 mmol/L (-2.0-2.0); O2 Mode BIPAP; Oxygen Saturation ABG 81.3 %
[2024-07-01 07:25] LABS: BIPAP Pressure 18/5; Puncture Site RR
[2024-07-01 07:28] LABS: Fractionated Inspired Oxygen 25 %
[2024-07-01 07:32] LABS: PO2 ABG 53.5 mmHg (80.0-100.0)
[2024-07-01] MEDS: PANTOPRAZOLE SODIUM 40 MG VIAL IV (07:40)
[2024-07-01] MEDS: METHYLPREDNISOLONE SOD SUCC PF 40 MG/ML VIAL IVP (07:40)
[2024-07-01 07:48] LABS: Troponin I High Sensitivity 186.1 pg/mL (4.0-51.3)
[2024-07-01] MEDS: BUMETANIDE 10 MG in 0.9 % SODIUM CHLORIDE 160 ML IV (08:54)
[2024-07-01] MEDS: MAGNESIUM SULFATE IN WATER 2 GM/50 ML PREMIX IV (08:58)
[2024-07-01] MEDS: LACTULOSE 10 GM/15 ML UD CUP 20 GM PR (09:22)
[2024-07-01] MEDS: PIPERACILLIN SODIUM/TAZOBACTAM 3.375 GM in 0.9 % SODIUM CHLORIDE 50 ML IV (10:25)
--- NOTE | 2024-07-01 12:18 | SWNOTE1 ---
SW stopped in to speak with daughter. Daughter and 3 of pt's sisters were in room. At this time they have changed code status and just want patient comfortable and no hospice at this time. SW provided comfort to daughter at this time, SW to follow as needed.
--- NOTE | 2024-07-01 12:31 | P.IMPN_ITS ---
Progress Note: A&P Assessment and Plan (1) Sepsis: Assessment and Plan: Sepsis sec to UTI, Influenza, and quite possibly superimposed bacterial PNA. Hemodynamically unstable, clinically worse with worsening resp failure and mental status Qualifiers: Sepsis type: Escherichia coli Sepsis acute organ dysfunction status: with acute organ dysfunction Severe sepsis acute organ dysfunction type: acute respiratory failure Acute respiratory failure type: with hypercapnia Severe sepsis shock status: without septic shock Qualified Code(s): A41.51 - Sepsis due to Escherichia coli [E. coli]; R65.20 - Severe sepsis without septic shock; J96.02 - Acute respiratory failure with hypercapnia (2) Acute hypoxic respiratory failure: Assessment and Plan: On BIPAP, hypoxic, hypercapnic. Failing BIPAP therapy and would need endotracheal intubation/mechanical ventilation for resp failure. (3) Acute respiratory failure with hypercapnia: Assessment and Plan: On BIPAP, hypoxic, hypercapnic. Failing BIPAP therapy and would need endotracheal intubation/mechanical ventilation for resp failure. Worsening hypercapnia on ABG. (4) COPD exacerbation: Assessment and Plan: Clinically worse on BIPAP. No improvement noted. Diminished lung sounds, with wheezing and rhonchi. Was on solumedrol, duonebs for it. (5) Metabolic encephalopathy: Assessment and Plan: GCS of 3, unable to protect airway, multifactorial and sec to sepsis, hypercapnia and resp failure. (6) Obtunded: Assessment and Plan: GCS of 3, unable to protect airway, multifactorial and sec to sepsis, hypercapnia and resp failure. (7) Influenza A: Assessment and Plan: Contributing to resp failure/current illness. (8) UTI (urinary tract infection): Assessment and Plan: Urine cx positive for E coli Qualifiers: Urinary tract infection type: acute cystitis Hematuria presence: without hematuria Qualified Code(s): N30.00 - Acute cystitis without hematuria (9) Acute on chronic heart failure with preserved ejection fraction (HFpEF): Assessment and Plan: Was on Bumex drip, no improvement clinically. (10) Type 2 IL (myocardial infarction): Assessment and Plan: CC measures only. No intervention. (11) Alcohol abuse, continuous: Assessment and Plan: No evidence of withdrawal. (12) Generalized weakness: Assessment and Plan: Now unresponsive, obtunded. (13) Hyperammonemia: Assessment and Plan: Clinically worse, no improvement. (14) Polysubstance use disorder: Assessment and Plan: Active polysubstance abuse, UDS positive for multiple illicit drugs. Plan Had a detailed discussion about goals of care, treatment plan and patient's current clinical course/status. Given that she is obtunded, unable to protect her airway and has worsening respiratory status while on BiPAP, next logical step would be endotracheal intubation mechanical ventilation. Patient's sisters and daughters were at bedside. Daughter is POA and she told me that patient did not want endotracheal intubation and mechanical ventilation. Patient would like to proceed with comfort care measures only and withdraw care. I will discontinue IV diuretics, antibiotics, steroids. Will continue with oxygen supplementation as needed along with DuoNebs as needed. Patient also started on IV morphine and Ativan as needed. Will remove BiPAP and transition to supplemental oxygen via nasal cannula. This was also discussed and communicated to patient's nurse and case management. DNR paperwork signed. Patient can be transferred to [facility] floor does not ICU level of care at this moment Internal Medicine - PN: Subj Subjective Interval history: Patient seen and examined today. Unresponsive, obtunded with no response on painful stimulus. On BIPAP. Exam Constitutional Vital Signs, click to edit/add: Last Vital Signs Temp 100.1 F 07/01/24 12:00 Pulse 128 H 07/01/24 12:00 Resp 27 H 07/01/24 12:00 BP 137/84 07/01/24 12:00 Pulse Ox 99 07/01/24 12:00 O2 Del Method BIPAP 07/01/24 12:00 O2 Flow Rate 3 07/01/24 12:00 FiO2 25 07/01/24 12:00 Other: Sick appearing, frail, unresponsive. Laying in bed, on BIPAP Respiratory Effort & inspection: tachypneic, respiratory distress and decreased respiratory effort Auscultation: rhonchi and diminished lung sounds Cardio Common normals: regular rhythm, S1 normal heart sound and S2 normal heart sound Rate: tachycardic GI Common normals: Normal to inspection, nondistended, normoactive bowel sounds present, soft to palpation and non-tender Extremity Common normals: normal to inspection Neuro [place] Coma Scale: document GCS findings [place] coma scale eye opening: None [place] coma scale verbal response: None [place] coma scale motor response: None [place] coma scale total score: 3 Sensorium/orientation: obtunded Other: Patient unresponsive, obtunded. No response to painful stimulus. Psych Other: Obtunded, unresponsive. Internal Medicine - PN: Obj Da Labs Labs: Laboratory Results - last 24 hr 07/01/24 07/01/24 07/01/24 00:09 04:57 06:54 WBC 13.0 H RBC 2.43 L Hgb 7.5 L Hct 24.4 L MCV 100.4 H MCH 30.9 MCHC 30.7 RDW 15.9 H Plt Count 186 MPV 9.4 L Neut % (Auto) 86.1 H Lymph % (Auto) 5.4 L [place] % (Auto) 7.7 Eos % (Auto) 0.1 L Baso % (Auto) 0.2 Neut # (Auto) 11.2 H Lymph # (Auto) 0.7 L [place] # (Auto) 1.0 H Eos # (Auto) 0.0 Baso # (Auto) 0.0 Abs Immat Gran (auto) 0.07 H Imm/Tot Granulo (auto) 0.5 Puncture Site ABG pH ABG pCO2 ABG pO2 ABG HCO3 ABG O2 Saturation ABG Base Excess Ez Test FiO2 BiPAP Sodium 146 H Potassium 2.6 L* Chloride 105 Carbon Dioxide 33.8 H Anion Gap 9.8 BUN 18.0 Creatinine 0.88 Est GFR ( Amer) >60 Est GFR (Non-Af Amer) >60 BUN/Creatinine Ratio 20.5 Glucose 102 Calcium 8.4 L Magnesium 1.6 L Total Bilirubin 0.4 AST 46 H ALT 34 Alkaline Phosphatase 138 H Ammonia 37 H Troponin I High Sens 186.1 H* Total Protein 5.8 L Albumin 2.1 L Globulin 3.7 Albumin/Globulin Ratio 0.6 POC Glucose 102 Blood Type B Positive Antibody Screen Negative Crossmatch See Detail 07/01/24 07:15 WBC RBC Hgb Hct MCV MCH MCHC RDW Plt Count MPV Neut % (Auto) Lymph % (Auto) [place] % (Auto) Eos % (Auto) Baso % (Auto) Neut # (Auto) Lymph # (Auto) [place] # (Auto) Eos # (Auto) Baso # (Auto) Abs Immat Gran (auto) Imm/Tot Granulo (auto) Puncture Site Rr ABG pH 7.308 L ABG pCO2 70.0 H* ABG pO2 53.5 L* ABG HCO3 35.1 H ABG O2 Saturation 81.3 ABG Base Excess 8.8 H Ez Test Positive FiO2 25 BiPAP 18/5 Sodium Potassium Chloride Carbon Dioxide Anion Gap BUN Creatinine Est GFR ( Amer) Est GFR (Non-Af Amer) BUN/Creatinine Ratio Glucose Calcium Magnesium Total Bilirubin AST ALT Alkaline Phosphatase Ammonia Troponin I High Sens Total Protein Albumin Globulin Albumin/Globulin Ratio POC Glucose Blood Type Antibody Screen Crossmatch Urinary Catheter Management Urinary Catheter Management 2-way Urethral: Cath placed during this visit: yes Urethral indwelling: Yes Reason for continuing: end of life care Insertion date: 06/28/24 Insertion time: 20:00
--- NOTE | 2024-07-01 12:35 | P.PLPN_ITS ---
Progress Note: A&P Assessment and Plan (1) Influenza A: Assessment and Plan: 1. Influenza A bronchitis. Was on Tamiflu. 2. Acute hypercapnic respiratory acidosis. Worsening respiratory status. She needs intubated, but she was made DNRCCA-no intubation and then DNRCC. BiPAP was removed. 3. Acute hypoxic respiratory failure. Worsening respiratory status on ABG - pO2 53.5 despite FiO2 25%. 3. Acute NSTEMI type 2. 4. Acute exacerbation of diastolic congestive heart failure. 5. Alcohol abuse. 6. Methamphetamine positive test. 7. E. coli UTI. Pansensitive, on Rocephin, so this should not have accounted for her symptoms. 8. Hypokalemia. 9. Hypomagnesemia. 10. Anemia. Question chronic blood loss associated with GI bleed (as per last admission). Plan Patient is now DNRCC. BiPAP canceled. No further recommendations from a pulmo nary standpoint. Will sign off. Subjective Subjective Interval history: Patient was seen ~ 09:20 this AM. Discussed with RN. Patient is less responsive now, barely opening eyes to voice and does not follow commands otherwise (e.g. squeeze fingers). ABG reviewed - worsening pCO2 to 70 (though pH improved to 7.31), developing hypoxic respiratory failure too with pO2 53.5 and SaO2 81% on FiO2 75%. K+, Mg2+, and Hb are now low. At this point, she needs intubated/placed on a ventilator. Yesterday, family made her a DNRCCA-No intubation, stating that her wishes would not to be placed on a ventilator. She is now beginning to develop low grade temp (~100.1'F). UA C&S = E. coli, ramsay sensitive, was on Rocephin. Family have decided now to make her DNRCC. Non-comfort measures were withdrawn. Exam Constitutional Vital Signs, click to edit/add: Last Vital Signs Temp 100.1 F 07/01/24 12:00 Pulse 128 H 07/01/24 12:00 Resp 27 H 07/01/24 12:00 BP 137/84 07/01/24 12:00 Pulse Ox 99 07/01/24 12:00 O2 Del Method BIPAP 07/01/24 12:00 O2 Flow Rate 3 07/01/24 12:00 FiO2 25 07/01/24 12:00 Other: Nearly non-responsive. Barely opens eyes, no longer following commands. HENMT Other: BiPAP mask Chest Other: Normal rise & fall Respiratory Other: Tachypneic. Diminished. Faint inspiratory crackles. No wheezes. Cardio Other: Tachycardic, irregular. In 110-120's. GI Other: Soft Extremity Other: 2+ edema BLE Non-pitting edema BUE Neuro Other: No fasciculations Psych Other: Obtunded
[2024-07-02] VITALS (19 sets, daily range): BP systolic 48–74; BP diastolic 27–41; PULSE 0–99; O2SAT 79–100
--- NOTE | 2024-07-02 10:02 | PC.NURSE ---
0924 pt with absent vital signs, no respirations, asystole on monitor. absence of heart sounds and pulse confirmed by Peg Marx RN and Jesisca Serrano RN. Daughter and sister at bedside, aware of pts passing. daughter chose [facility]. [facility] contacted, ref number [id number].
--- NOTE | 2024-07-02 10:48 | PM.DS1 ---
DS: Providers Provider Date of admission: 06/29/24 10:04 Primary care physician: Casandra Jauregui MD Admitting clinician: Dmitry Perry Attending physician on admission: Dmitry Perry Consults: 06/28/24 Consult to Dietitian Routine Reason for consultation: malnutrition Has provider been notified: No 06/28/24 17:41 Occupational Therapy Eval and Treat Routine Reason for consultation: Weakness Physical Therapy Eval and Treat Routine Reason for consultation: Weakness 06/29/24 11:31 Consult to Pulmonology Routine Consulting Provider: Angelo Rawls Reason for consultation: Hypoxia Has provider been notified: Yes Attending physician on discharge: Shaikh Pennie Discharging clinician: Shaikh Pennie Anticipated date of discharge: 07/02/24 DS: Diagnosis Discharge Diagnosis (1) Sepsis: Qualifiers: Sepsis type: sepsis due to unspecified organism Sepsis acute organ dysfunction status: with acute organ dysfunction Severe sepsis acute organ dysfunction type: acute respiratory failure Acute respiratory failure type: with hypercapnia Severe sepsis shock status: without septic shock Qualified Code(s): A41.9 - Sepsis, unspecified organism; R65.20 - Severe sepsis without septic shock; J96.02 - Acute respiratory failure with hypercapnia (2) Acute hypoxic respiratory failure: (3) Acute respiratory failure with hypercapnia: (4) COPD exacerbation: (5) Metabolic encephalopathy: (6) Obtunded: (7) Influenza A: (8) UTI (urinary tract infection): Qualifiers: Urinary tract infection type: acute cystitis Hematuria presence: without hematuria Qualified Code(s): N30.00 - Acute cystitis without hematuria (9) Acute on chronic heart failure with preserved ejection fraction (HFpEF): (10) Type 2 [place] (myocardial infarction): (11) Alcohol abuse, continuous: (12) Generalized weakness: (13) Hyperammonemia: (14) Polysubstance use disorder: DS: Summary Hospital Course Hospital Course: 64-year-old female presented to ER with generalized weakness after she fell at home. After admission she developed acute respiratory failure, sepsis for which she was transferred to ICU and placed on BiPAP. Patient was treated with IV antibiotics for suspected pneumonia along with systemic steroids for COPD exacerbation. Patient was also treated with IV Bumex for acute on chronic diastolic heart failure. Patient continued to clinically worse while on BiPAP with no improvement in her respiratory status and on 07/01/2024 was noted to be obtunded with no response to painful stimulus. Goals of care for discussed with family and and patient's family opted for DNR comfort care measures only. Patient was taken off of nightly for earlier today at 09:25 am. Family was at bedside. Time Spent with Patient Time attestation: Total time spent providing and/or coordinating discharge services: Exam Constitutional Vital Signs, click to edit/add: Last Vital Signs Temp 100.1 F 07/01/24 12:00 Pulse 0 L 07/02/24 09:24 Resp 0 L 07/02/24 09:24 BP 48/35 L 07/02/24 09:00 Pulse Ox 88 L 07/02/24 06:04 O2 Del Method Nasal Cannula 07/02/24 07:56 O2 Flow Rate 2 07/02/24 07:56 FiO2 25 07/01/24 12:00 Discharge Plan Discharge Disposition: Date/Time: 07/02/24 09:24
--- NOTE | 2024-07-02 12:04 | PC.NURSE ---
post mortem care completed, [facility] contacted.
== END 2024-07-02 12:10 | disposition expired | DRG 871 ==
LOC: ER 16:41 → MS 18:14 → ICU 22:12
PROVIDERS: Family Medicine; Internal Medicine; Registered Nurse; Student in an Organized Health Care Education/Training Program; Admitting Provider Internal Medicine; Emergency Provider Emergency Medicine; PCP Family Medicine; Visit Provider Internal Medicine
DX: A41.51 Sepsis due to Escherichia coli [E. coli] (principal); G93.41 Metabolic encephalopathy; I21.A1 Myocardial infarction type 2; J96.01 Acute respiratory failure with hypoxia; I50.33 Acute on chronic diastolic (congestive) heart failure; J15.9 Unspecified bacterial pneumonia; J96.02 Acute respiratory failure with hypercapnia; J10.08 Influenza due to other identified influenza virus with other specified pneumonia; D62 Acute posthemorrhagic anemia; K92.2 Gastrointestinal hemorrhage, unspecified; E87.1 Hypo-osmolality and hyponatremia; J44.0 Chronic obstructive pulmonary disease with (acute) lower respiratory infection; J44.1 Chronic obstructive pulmonary disease with (acute) exacerbation; N30.00 Acute cystitis without hematuria; Z23 Encounter for immunization; S20.211A Contusion of right front wall of thorax, initial encounter; R79.89 Other specified abnormal findings of blood chemistry; E83.42 Hypomagnesemia; S41.111A Laceration without foreign body of right upper arm, initial encounter; W18.39XA Other fall on same level, initial encounter; K70.0 Alcoholic fatty liver; F10.10 Alcohol abuse, uncomplicated; R53.1 Weakness; E87.6 Hypokalemia; Z79.82 Long term (current) use of aspirin; Z66 Do not resuscitate; G31.2 Degeneration of nervous system due to alcohol; R65.20 Severe sepsis without septic shock; R40.0 Somnolence; F19.10 Other psychoactive substance abuse, uncomplicated; Z91.81 History of falling; I11.0 Hypertensive heart disease with heart failure
CPT/HCPCS: 36415; 36600; 51702; 51798; 70450; 71045; 71250; 72125; 72170; 74176; 76705; 80048; 80053; 80076; 80307; 80320; 81001; 82140; 82375; 82805; 82948; 83050; 83605; 83735; 83880; 84484; 85007; 85025; 85027; 85610; 86850; 86900; 86901; 87086; 87150; 87186; 87804; 87811; 93005; 94640; 94660; 94667; 94668; 94761; 96365; 96366; 96367; 96375; 96376; 97530; 99285; G0378; J0696; J2405; J2543; J2919; J3475; J3480; P9046